=== PATIENT | female | born 1970 | race Caucasian/White ===

== ENCOUNTER 2022-10-08 15:03 | Emergency (ER) | payer BC, SELFPAY ==
[2022-10-08 15:07] VITALS: BP 129/96; PULSE 87; RESP 20; O2SAT 99; BMI 28.3
--- NOTE | 2022-10-08 15:09 | ED_ITS ---
HPI - Abdominal Pain General Chief Complaint: Abdominal Pain Stated Complaint: Abdominal Pain Time Seen by Provider: 10/08/22 15:09 History of Present Illness HPI narrative: Patient is a 51-year-old female to history of cholecystectomy, appendectomy presents to the emergency department for the evaluation of mid to low abdominal pain that began at five this morning. She states approximately ten hours ago, she developed the pain which has not lessened throughout the day. She denies fev ers, chills, nausea, vomiting. She states she had some loose stool today but has not had any diarrhea or blood in her stool. She denies urinary symptoms. No medications taken prior to arrival. Related Data Home Medications Medication Instructions Recorded Confirmed albuterol sulfate 90 mcg/actuation 1 puff inhalation Q4H PRN 10/08/22 10/08/22 aerosol inhaler shortness of breath or wheezing omeprazole 20 mg capsule,delayed 20 mg PO BID 10/08/22 10/08/22 release Previous Rx's Medication Instructions Recorded ciprofloxacin HCl 500 mg tablet 500 mg PO Q12H #20 tabs 10/08/22 dicyclomine 20 mg tablet 20 mg PO QID PRN abdominal pain 10/08/22 #12 tabs metronidazole 500 mg tablet 500 mg PO BID 10 days #20 tabs 10/08/22 ondansetron 4 mg disintegrating 4 mg PO Q6H PRN nausea and 10/08/22 tablet vomiting #12 tabs oxycodone-acetaminophen 5 mg-325 1 tab PO Q6H PRN pain #10 tabs 10/08/22 mg tablet (Percocet) Allergies Allergy/AdvReac Type Severity Reaction Status Date / Time No Known Drug Allergies Allergy Verified 10/08/22 15:06 Review of Systems ROS Constitutional Denies: fever or chills Ears, nose, mouth, and throat Denies: neck pain Respiratory Denies: shortness of breath Gastrointestinal Reports: abdominal pain; Denies: nausea or vomiting Genitourinary Denies: painful urination Musculoskeletal Denies: back pain PFSH PFSH Social History Smoking status: Former smoker Exam Narrative Exam Narrative: Gen.: Awake, alert, in no distress Head: Normocephalic, atraumatic ENT: Moist mucous membranes Respiratory: No respiratory distress, lungs clear bilaterally Cardio: Regular rate and rhythm Gastrointestinal: Abdomen is soft, nondistended; diffusely mildly tender to palpation in the epigastrium and umbilical abdomen, no guarding or rebound Extremities: Moves extremities equally, no injuries noted Psych: Normal mood and affect Neuro: No focal neuro deficit Skin: Warm, dry, intact Constitutional Vital Signs - 24 hr 10/08/22 15:07 Pulse Rate [Monitor] 87 Respiratory Rate 20 Blood Pressure [Left Arm] 129/96 H Pulse Oximetry 99 Oxygen Delivery Method Room Air Course Vital Signs Vital signs: Vital Signs Pulse Rate 87 10/08/22 15:07 Respiratory Rate 20 10/08/22 15:07 Blood Pressure 129/96 H 10/08/22 15:07 Pulse Oximetry 99 10/08/22 15:07 Oxygen Delivery Method Room Air 10/08/22 15:07 Pulse Rate 87 10/08/22 15:07 Respiratory Rate 20 10/08/22 15:07 Blood Pressure 129/96 H 10/08/22 15:07 Pulse Oximetry 99 10/08/22 15:07 Oxygen Delivery Method Room Air 10/08/22 15:07 MDM - Abdominal Pain MDM Narrative Medical decision making narrative: Patient was treated with IV fluids, Toradol, Levsin, Zofran. She is resting comfortably on reevaluation. Lab studies show mild urinary tract infection but otherwise unremarkable labs and CT shows a short segment of acute diverticulitis with no abscess or perforation. Abdomen is soft and benign in the Emergency Room and the patient will be discharged home to follow-up with her PCP. She was given Cipro, Flagyl, Zofran, Bentyl, Percocet as needed. She is encouraged to follow clear liquid diet for forty-eight hours and return to the Emergency Room if symptoms change or worsen Medical Records Attestation: I reviewed the patient's medical records. Lab Data Attestation: I reviewed the patient's lab results. Labs: Lab Results 10/08/22 10/08/22 Range/Units 15:10 15:34 WBC 11.8 H (4.0-11.0) 10^3/uL RBC 4.94 (4.20-5.40) 10^6/uL Hgb 14.7 (12.0-16.0) g/dL Hct 42.3 (36.0-48.0) % MCV 85.6 (81.0-99.0) fL MCH 29.8 (26.7-34.0) pg MCHC 34.8 (29.9-35.2) g/dL RDW 11.9 (11.0-15.0) % Plt Count 274 (150-450) 10^3/uL MPV 9.3 L (9.5-13.5) fL Neut % (Auto) 71.2 (43.0-75.0) % Lymph % (Auto) 19.3 L (20.5-60.0) % Mclean % (Auto) 7.3 (1.7-12.0) % Eos % (Auto) 1.4 (0.9-7.0) % Baso % (Auto) 0.5 (0.2-2.0) % Neut # (Auto) 8.4 H (1.4-6.5) 10^3/uL Lymph # (Auto) 2.3 (1.2-3.8) 10^3/uL Mclean # (Auto) 0.9 H (0.3-0.8) 10^3/uL Eos # (Auto) 0.2 (0.0-0.7) 10^3/uL Baso # (Auto) 0.1 (0.0-0.1) 10^3/uL Abs Immat Gran (auto) 0.03 (0.00-0.03) 10^3/uL Imm/Tot Granulo (auto) 0.3 (0.0-0.5) % Sodium 136 (136-145) mmol/L Potassium 3.9 (3.5-5.1) mmol/L Chloride 101 (98-107) mmol/L Carbon Dioxide 25.9 (21.0-32.0) mmol/L Anion Gap 13.0 BUN 8.0 (7.0-18.0) mg/dL Creatinine 0.72 (0.55-1.02) mg/dL Est GFR ( Amer) >60 (>=60) Est GFR (Non-Af Amer) >60 (>=60) BUN/Creatinine Ratio 11.1 Glucose 100 (74-106) mg/dL Lactate 0.8 (0.4-2.0) mmol/L Calcium 9.1 (8.5-10.1) mg/dL Total Bilirubin 0.9 (0.2-1.0) mg/dL AST 37 (15-37) U/L ALT 51 (14-59) U/L Alkaline Phosphatase 82 (46-116) U/L Total Protein 7.7 (6.4-8.2) g/dL Albumin 4.0 (3.4-5.0) g/dL Globulin 3.7 g/dL Albumin/Globulin Ratio 1.1 Lipase 75.0 (73.0-393.0) U/L Urine Color Lt. yellow (YELLOW) Urine Clarity Clear (CLEAR) Urine pH 8.0 (5.0-9.0) Ur Specific Cherry Log 1.010 (1.005-1.025) Urine Protein Negative (NEG/TRACE) mg/dL Urine Glucose (UA) Negative (NEGATIVE) mg/dL Urine Ketones Negative (NEGATIVE) mg/dL Urine Occult Blood Negative (NEGATIVE) Urine Nitrite Negative (NEGATIVE) Urine Bilirubin Negative (NEGATIVE) Urine Urobilinogen 0.2 (0.2-1.0) EU/dL Ur Leukocyte Esterase Moderate A (NEGATIVE) Urine RBC 2-5 A (0-2) #/HPF Urine WBC 10-20 A (NONE SEEN) #/HPF Ur Squamous Epith Cells Few A (NONE/RARE) #/LPF Urine Crystals None seen (None Seen) #/HPF Urine Bacteria Trace A (NONE SEEN) #/HPF Urine Casts None seen (NONE SEEN) #/LPF Urine Mucus None seen (NONE SEEN) Ur Culture Indicated? Yes Imaging Data CT scan - abdomen: Attestation: I have reviewed the pertinent imaging results. Radiologist's impression: Procedure: CT abdomen pelvis w con EXAM: CT abdomen pelvis w con HISTORY: Abdominal pain COMPARISON: None. TECHNIQUE: Axial CT imaging was performed through the abdomen and pelvis with intravenous contrast. Multiplanar reformats were performed. Dose reduction techniques were achieved by using automated exposure control and/or adjustment of mA and/or kV according to patient size and/or use of iterative reconstruction technique. FINDINGS: Lung bases: Lung bases are clear. No pleural effusion. GI upper: Small hiatal hernia. Liver: Normal size and contour. Gallbladder: Cholecystectomy. Biliary system: No intra or extrahepatic biliary ductal dilatation. Spleen: Normal size. Pancreas: Unremarkable. Adrenal glands: Normal adrenal glands. Kidneys/ureters: Normal contours. No hydronephrosis. There is a 0.3 cm nonobstructing left renal stone. Vessels: No aneurysm. Lymph Nodes: No lymphadenopathy. Small bowel: No wall thickening or dilatation. Colon: No wall thickening or dilatation. There are sigmoid diverticulosis. There is short segment circumferential wall thickening of the proximal sigmoid colon with surrounding fat stranding, representing acute sigmoid diverticulitis. Appendix: Appendectomy. Peritoneal cavity: No free fluid or pneumoperitoneum. Lower : Unremarkable. Bones: No acute bony abnormality. Soft tissues: No acute finding. Additional findings: None. IMPRESSION: short segment circumferential wall thickening of the proximal sigmoid colon with surrounding fat stranding, representing acute sigmoid diverticulitis. No abscess or evidence of microperforation. 0.3 cm nonobstructing left renal stone. Electronically authenticated by: OMEGA PENA Date: 10/08/2022 16:09 Discharge Plan Discharge Chief Complaint: Abdominal Pain Clinical Impression: Diverticulitis, Abdominal pain, UTI (urinary tract infection) Patient Disposition: Home, Self-Care Time of Disposition Decision: 16:28 Condition: Good Prescriptions / Home Meds: New ciprofloxacin HCl 500 mg tablet 500 mg PO Q12H Qty: 20 0RF metronidazole 500 mg tablet 500 mg PO BID 10 Days Qty: 20 0RF oxycodone-acetaminophen [Percocet] 5-325 mg tablet 1 tab PO Q6H PRN (Reason: pain) Qty: 10 0RF dicyclomine 20 mg tablet 20 mg PO QID PRN (Reason: abdominal pain) Qty: 12 0RF ondansetron 4 mg tablet,disintegrating 4 mg PO Q6H PRN (Reason: nausea and vomiting) Qty: 12 0RF No Action albuterol sulfate 90 mcg/actuation HFA aerosol inhaler 1 puff INHALATION Q4H PRN (Reason: shortness of breath or wheezing) omeprazole 20 mg capsule,delayed release(DR/EC) 20 mg PO BID Instructions: Diverticulitis (ED), Diverticulitis Diet (ED) Stand Alone Forms: Portal Instructions Referrals: ORACIO SINGH DO [Primary Care Provider] - 1 week Discharge Date/Time: 10/08/22 16:41
--- NOTE | 2022-10-08 15:16 | CT_ITS ---
[address] [address] Patient Name: COLIN MACIAS MRN: [id number] date: 1970 Sex: F Assigned Patient Location: ER Current Patient Location: .MAIN Accession/Order Number: [id number] Exam Date: 10/08/2022 15:38 Report Date: 10/08/2022 16:09 At the request of: CAROLINA DOMINGO Procedure: CT abdomen pelvis w con EXAM: CT abdomen pelvis w con HISTORY: Abdominal pain COMPARISON: None. TECHNIQUE: Axial CT imaging was performed through the abdomen and pelvis with intravenous contrast. Multiplanar reformats were performed. Dose reduction techniques were achieved by using automated exposure control and/or adjustment of mA and/or kV according to patient size and/or use of iterative reconstruction technique. FINDINGS: Lung bases: Lung bases are clear. No pleural effusion. GI upper: Small hiatal hernia. Liver: Normal size and contour. Gallbladder: Cholecystectomy. Biliary system: No intra or extrahepatic biliary ductal dilatation. Spleen: Normal size. Pancreas: Unremarkable. Adrenal glands: Normal adrenal glands. Kidneys/ureters: Normal contours. No hydronephrosis. There is a 0.3 cm nonobstructing left renal stone. Vessels: No aneurysm. Lymph Nodes: No lymphadenopathy. Small bowel: No wall thickening or dilatation. Colon: No wall thickening or dilatation. There are sigmoid diverticulosis. There is short segment circumferential wall thickening of the proximal sigmoid colon with surrounding fat stranding, representing acute sigmoid diverticulitis. Appendix: Appendectomy. Peritoneal cavity: No free fluid or pneumoperitoneum. Lower : Unremarkable. Bones: No acute bony abnormality. Soft tissues: No acute finding. Additional findings: None. IMPRESSION: short segment circumferential wall thickening of the proximal sigmoid colon with surrounding fat stranding, representing acute sigmoid diverticulitis. No abscess or evidence of microperforation. 0.3 cm nonobstructing left renal stone. Electronically authenticated by: OMEGA PENA Date: 10/08/2022 16:09
[2022-10-08 15:28] LABS: Basophils Absolute Auto 0.1 10^3/uL (0.0-0.1); Basophils Percent Auto 0.5 % (0.2-2.0); Eosinophils Absolute Auto 0.2 10^3/uL (0.0-0.7); Eosinophils Percent Auto 1.4 % (0.9-7.0); Hematocrit 42.3 % (36.0-48.0); Hemoglobin 14.7 g/dL (12.0-16.0); Immature Granulocytes Abs Auto 0.03 10^3/uL (0.00-0.03); Immature Granulocytes Pct Auto 0.3 % (0.0-0.5); Lymphocytes Absolute Auto 2.3 10^3/uL (1.2-3.8); Lymphocytes Percent Auto 19.3 % (20.5-60.0); Mean Corpuscular HGB Conc 34.8 g/dL (29.9-35.2); Mean Corpuscular Hemoglobin 29.8 pg (26.7-34.0); Mean Corpuscular Volume 85.6 fL (81.0-99.0); Mean Platelet Volume 9.3 fL (9.5-13.5); Monocytes Absolute Auto 0.9 10^3/uL (0.3-0.8); Monocytes Percent Auto 7.3 % (1.7-12.0); Neutrophils Absolute Auto 8.4 10^3/uL (1.4-6.5); Neutrophils Percent Auto 71.2 % (43.0-75.0); Platelet Count 274 10^3/uL (150-450); Red Blood Count 4.94 10^6/uL (4.20-5.40); Red Cell Distribution Width 11.9 % (11.0-15.0); White Blood Count 11.8 10^3/uL (4.0-11.0)
[2022-10-08] MEDS: HYOSCYAMINE SULFATE 0.125 MG TAB.SUBL SL (15:28)
[2022-10-08] MEDS: KETOROLAC TROMETHAMINE 30 MG/ML VIAL IVP (15:29)
[2022-10-08] MEDS: 0.9 % SODIUM CHLORIDE 1,000 ML 999 ML IV (15:29)
[2022-10-08] MEDS: ONDANSETRON PF 4 MG/2 ML VIAL IV (15:29)
[2022-10-08 15:31] LABS: Bilirubin Urine NEGATIVE (NEGATIVE); Blood Urine NEGATIVE (NEGATIVE); Clarity Urine CLEAR (CLEAR); Color Urine LT. YELLOW (YELLOW); Glucose Urine UA NEGATIVE (NEGATIVE); Ketones Urine NEGATIVE (NEGATIVE); Leukocyte Esterase Urine MODERATE (NEGATIVE); Nitrite Urine NEGATIVE (NEGATIVE); Protein Urine NEGATIVE (NEG/TRACE); Urobilinogen Urine 0.2 EU/dL (0.2-1.0)
[2022-10-08 15:34] LABS: Urine Microscopic Indicated YES
[2022-10-08 15:41] LABS: Alanine Aminotransferase 51 U/L (14-59); Albumin Globulin Ratio 1.1; Alkaline Phosphatase 82 U/L (46-116); Aspartate Amino Transferase 37 U/L (15-37); BUN Creatinine Ratio 11.1; Bilirubin Total 0.9 mg/dL (0.2-1.0); Calcium 9.1 mg/dL (8.5-10.1); Carbon Dioxide 25.9 mmol/L (21.0-32.0); Chloride 101 mmol/L (98-107); Estimated GFR (African America >60 (>=60); Estimated GFR (Non-African Ame >60 (>=60); Globulin 3.7 g/dL; Glucose 100 mg/dL (74-106); Potassium 3.9 mmol/L (3.5-5.1); Sodium 136 mmol/L (136-145); Total Protein 7.7 g/dL (6.4-8.2)
[2022-10-08 15:53] LABS: Bacteria Urine TRACE #/HPF (NONE SEEN)
[2022-10-08 15:53] LABS: Lactate/Lactic Acid 0.8 mmol/L (0.4-2.0)
[2022-10-08 15:54] LABS: Cast Seen? NONE SEEN #/LPF (NONE SEEN); Crystals Seen? None Seen #/HPF (None Seen); Mucus Urine NONE SEEN (NONE SEEN); Squamous Epithelial Cell Urine FEW #/LPF (NONE/RARE); Urine Culture Indicated YES
== END 2022-10-08 16:41 | disposition home or self-care (01) ==
PROVIDERS: Physician Assistant; Emergency Provider Emergency Medicine; PCP Family Medicine
DX: K57.32 Diverticulitis of large intestine without perforation or abscess without bleeding (principal); N39.0 Urinary tract infection, site not specified; R10.9 Unspecified abdominal pain; Z90.49 Acquired absence of other specified parts of digestive tract; Z79.899 Other long term (current) drug therapy; Z87.891 Personal history of nicotine dependence
CPT/HCPCS: 36415; 74177; 80053; 81003; 81015; 83605; 83690; 85025; 87086; 96374; 96375; 99284; Q9967

== ENCOUNTER 2022-10-15 15:29 | Emergency (ER) | payer BC, SELFPAY ==
[2022-10-15 15:31] VITALS: BP 156/86; PULSE 82; RESP 20; TEMP 36.8; O2SAT 97; BMI 28.2
--- NOTE | 2022-10-15 15:46 | ED.ABDPAIN1 ---
HPI - Abdominal Pain General Chief Complaint: Abdominal Pain Stated Complaint: BACK PAIN Time Seen by Provider: 10/15/22 15:34 Source: patient Mode of arrival: walk-in Limitations: no limitations History of Present Illness HPI narrative: upper abdominal pain that began a few days ago. The patient was diagnosed with early UTI and sigmoid diverticulitis one week ago in this ED. She had blood testing and a CT scan. WBC was normal. She was discharged home with prescriptions for cipro and flagyl to treat the UTI and diverticulitis. She also received prescriptions for Zofran for nausea and Bentyl and Percocet for pain. She said that she decreased her twice daily PPI to once daily because one of the antibiotics said I could not take an antacid 6hours before or 6hours after the antibiotic. She has nausea but no vomiting. She has almost completed her course of antibiotics. Related Data Home Medications Medication Instructions Recorded Confirmed albuterol sulfate 90 mcg/actuation 1 puff inhalation Q4H PRN 10/08/22 10/08/22 aerosol inhaler shortness of breath or wheezing omeprazole 20 mg capsule,delayed 20 mg PO BID 10/08/22 10/08/22 release Previous Rx's Medication Instructions Recorded ciprofloxacin HCl 500 mg tablet 500 mg PO Q12H #20 tabs 10/08/22 dicyclomine 20 mg tablet 20 mg PO QID PRN abdominal pain 10/08/22 #12 tabs metronidazole 500 mg tablet 500 mg PO BID 10 days #20 tabs 10/08/22 ondansetron 4 mg disintegrating 4 mg PO Q6H PRN nausea and 10/08/22 tablet vomiting #12 tabs oxycodone-acetaminophen 5 mg-325 1 tab PO Q6H PRN pain #10 tabs 10/08/22 mg tablet (Percocet) sucralfate 1 gram tablet (Carafate) 1 g PO QID 3 weeks #84 tabs 10/15/22 Allergies Allergy/AdvReac Type Severity Reaction Status Date / Time No Known Drug Allergies Allergy Verified 10/08/22 15:06 PFSH PFS Social History Smoking status: Former smoker Exam Narrative Exam Narrative: Nurses notes and vital signs reviewed and patient is not hypoxic. General: Well-appearing and in no apparent distress. Skin: Warm, dry, no pallor noted. No rash to abdomen or flank. Head: Normocephalic, atraumatic. Eye: Pupils are equal, round and EOMI. No scleral icterus. Ears, Nose, Mouth, and Throat: Oral mucosa is moist Cardiovascular: Regular Rate and Rhythm without murmur, gallop or rub. Respiratory: No accessory muscle use or respiratory distress. Lungs are clear to auscultation, no wheezing, rales or rhonchi Back: No CVA tenderness Musculoskeletal: normal ROM, no calf or popliteal tenderness, no lower extremity edema/swelling GI: Abdomen is soft, non-distended. Normal bowel sounds. No masses appreciated. Suprapubic tenderness to palpation. No rebound, guarding, or rigidity noted. Neurological: A&O x4. No cranial nerve dysfunction observed. No truncal ataxia. Moves all extremities. Sensation intact. Psychiatric: Cooperative and interactive. Normal mood and affect. Constitutional Vital Signs - 24 hr 10/15/22 15:31 Temperature 98.3 F Pulse Rate [Monitor] 82 Respiratory Rate 20 Blood Pressure [Right Arm] 156/86 H Pulse Oximetry 97 Oxygen Delivery Method Room Air Course Vital Signs Vital signs: Vital Signs Temperature 98.3 F 10/15/22 15:31 Pulse Rate 82 10/15/22 15:31 Respiratory Rate 20 10/15/22 15:31 Blood Pressure 156/86 H 10/15/22 15:31 Pulse Oximetry 97 10/15/22 15:31 Oxygen Delivery Method Room Air 10/15/22 15:31 Temperature 98.3 F 10/15/22 15:31 Pulse Rate 82 10/15/22 15:31 Respiratory Rate 20 10/15/22 15:31 Blood Pressure 156/86 H 10/15/22 15:31 Pulse Oximetry 97 10/15/22 15:31 Oxygen Delivery Method Room Air 10/15/22 15:31 MDM - Abdominal Pain MDM Narrative Medical decision making narrative: Blood drawn and sent for testing. Patient given ODT Zofran and GI cocktail. WBC had normalized when compared with last week's value. Creatinine elevated on this visit - BUN normal. CMP otherwise unremarkable and Lipase negative. Patient and I discussed her results. She will finish her antibiotics and then restart her PPI BID. In the meantime she was instructed to maintain a soft bland diet and was prescribed Carafate to take at home. She will keep her appointment with Dr Ledbetter in [place]. Lab Data Attestation: I reviewed the patient's lab results. Labs: Lab Results 10/15/22 Range/Units 16:05 WBC 6.6 (4.0-11.0) 10^3/uL RBC 4.55 (4.20-5.40) 10^6/uL Hgb 13.6 (12.0-16.0) g/dL Hct 39.2 (36.0-48.0) % MCV 86.2 (81.0-99.0) fL MCH 29.9 (26.7-34.0) pg MCHC 34.7 (29.9-35.2) g/dL RDW 11.8 (11.0-15.0) % Plt Count 284 (150-450) 10^3/uL MPV 9.0 L (9.5-13.5) fL Neut % (Auto) 59.8 (43.0-75.0) % Lymph % (Auto) 30.9 (20.5-60.0) % Franklin % (Auto) 6.1 (1.7-12.0) % Eos % (Auto) 2.1 (0.9-7.0) % Baso % (Auto) 0.8 (0.2-2.0) % Neut # (Auto) 4.0 (1.4-6.5) 10^3/uL Lymph # (Auto) 2.0 (1.2-3.8) 10^3/uL Franklin # (Auto) 0.4 (0.3-0.8) 10^3/uL Eos # (Auto) 0.1 (0.0-0.7) 10^3/uL Baso # (Auto) 0.1 (0.0-0.1) 10^3/uL Abs Immat Gran (auto) 0.02 (0.00-0.03) 10^3/uL Imm/Tot Granulo (auto) 0.3 (0.0-0.5) % Sodium 141 (136-145) mmol/L Potassium 3.7 (3.5-5.1) mmol/L Chloride 105 (98-107) mmol/L Carbon Dioxide 31.8 (21.0-32.0) mmol/L Anion Gap 7.9 BUN 11.0 (7.0-18.0) mg/dL Creatinine 1.26 H (0.55-1.02) mg/dL Est GFR ( Amer) 54 L (>=60) Est GFR (Non-Af Amer) 45 L (>=60) BUN/Creatinine Ratio 8.7 Glucose 109 H (74-106) mg/dL Calcium 9.1 (8.5-10.1) mg/dL Total Bilirubin 0.5 (0.2-1.0) mg/dL AST 30 (15-37) U/L ALT 51 (14-59) U/L Alkaline Phosphatase 64 (46-116) U/L Total Protein 7.0 (6.4-8.2) g/dL Albumin 3.7 (3.4-5.0) g/dL Globulin 3.3 g/dL Albumin/Globulin Ratio 1.1 Lipase 86.0 (73.0-393.0) U/L Discharge Plan Discharge Chief Complaint: Abdominal Pain Clinical Impression: GERD (gastroesophageal reflux disease) Patient Disposition: Home, Self-Care Time of Disposition Decision: 17:10 Prescriptions / Home Meds: New sucralfate [Carafate] 1 gram tablet 1 g PO QID 21 Days Qty: 84 0RF Rx Instructions: take before meals and at bedtime No Action albuterol sulfate 90 mcg/actuation HFA aerosol inhaler 1 puff INHALATION Q4H PRN (Reason: shortness of breath or wheezing) omeprazole 20 mg capsule,delayed release(DR/EC) 20 mg PO BID ciprofloxacin HCl 500 mg tablet 500 mg PO Q12H Qty: 20 0RF metronidazole 500 mg tablet 500 mg PO BID 10 Days Qty: 20 0RF oxycodone-acetaminophen [Percocet] 5-325 mg tablet 1 tab PO Q6H PRN (Reason: pain) Qty: 10 0RF dicyclomine 20 mg tablet 20 mg PO QID PRN (Reason: abdominal pain) Qty: 12 0RF ondansetron 4 mg tablet,disintegrating 4 mg PO Q6H PRN (Reason: nausea and vomiting) Qty: 12 0RF Instructions: GERD (Gastroesophageal Reflux Disease) (ED) Stand Alone Forms: Portal Instructions Referrals: ORACIO SINGH DO [Primary Care Provider] - 1 week
[2022-10-15] MEDS: lidocaine HCL 15 ML, MAG HYDROX/ALUMINUM HYD/SIMETH 30 ML, HYOSCYAMINE SULFATE 0.25 MG PO (15:55)
[2022-10-15] MEDS: ONDANSETRON 4 MG RAPDIS TABLET SL (15:55)
[2022-10-15 16:34] LABS: Basophils Absolute Auto 0.1 10^3/uL (0.0-0.1); Basophils Percent Auto 0.8 % (0.2-2.0); Eosinophils Absolute Auto 0.1 10^3/uL (0.0-0.7); Eosinophils Percent Auto 2.1 % (0.9-7.0); Hematocrit 39.2 % (36.0-48.0); Hemoglobin 13.6 g/dL (12.0-16.0); Immature Granulocytes Abs Auto 0.02 10^3/uL (0.00-0.03); Immature Granulocytes Pct Auto 0.3 % (0.0-0.5); Lymphocytes Percent Auto 30.9 % (20.5-60.0); Mean Corpuscular HGB Conc 34.7 g/dL (29.9-35.2); Mean Corpuscular Hemoglobin 29.9 pg (26.7-34.0); Mean Corpuscular Volume 86.2 fL (81.0-99.0); Monocytes Absolute Auto 0.4 10^3/uL (0.3-0.8); Monocytes Percent Auto 6.1 % (1.7-12.0); Neutrophils Percent Auto 59.8 % (43.0-75.0); Platelet Count 284 10^3/uL (150-450); Red Blood Count 4.55 10^6/uL (4.20-5.40); Red Cell Distribution Width 11.8 % (11.0-15.0); White Blood Count 6.6 10^3/uL (4.0-11.0)
[2022-10-15 16:43] LABS: Alanine Aminotransferase 51 U/L (14-59); Albumin Globulin Ratio 1.1; Albumin Level 3.7 g/dL (3.4-5.0); Alkaline Phosphatase 64 U/L (46-116); Anion Gap 7.9; Aspartate Amino Transferase 30 U/L (15-37); BUN Creatinine Ratio 8.7; Bilirubin Total 0.5 mg/dL (0.2-1.0); Calcium 9.1 mg/dL (8.5-10.1); Carbon Dioxide 31.8 mmol/L (21.0-32.0); Chloride 105 mmol/L (98-107); Estimated GFR (African America 54 (>=60); Estimated GFR (Non-African Ame 45 (>=60); Globulin 3.3 g/dL; Glucose 109 mg/dL (74-106); Potassium 3.7 mmol/L (3.5-5.1); Sodium 141 mmol/L (136-145)
== END 2022-10-15 17:38 | disposition home or self-care (01) ==
PROVIDERS: Emergency Provider Emergency Medicine; PCP Family Medicine
DX: K21.9 Gastro-esophageal reflux disease without esophagitis (principal); Z87.891 Personal history of nicotine dependence; Z87.440 Personal history of urinary (tract) infections; Z79.899 Other long term (current) drug therapy
CPT/HCPCS: 36415; 80053; 83690; 85025; 99283

== ENCOUNTER 2023-03-06 10:20 | Outpatient (OUT) | payer BC, SELFPAY ==
--- NOTE | 2023-03-06 | XR_ITS ---
[facility] [place] [id number] Patient Name: COLIN MACIAS MRN: [id number] date: 1970 Sex: F Assigned Patient Location: [facility] Current Patient Location: [facility] Accession/Order Number: [id number] Exam Date: 03/06/2023 10:35 Report Date: 03/06/2023 13:19 At the request of: ORACIO SINGH Procedure: XR chest 2V EXAM: XR chest 2V - 03/06/2023 HISTORY: R07.89; Chest pain COMPARISON STUDY: PA and lateral chest 11/12/2017. FINDINGS: The cardiomediastinal contours are stable and within normal limits. No dense consolidation, effusion, edema, failure or pneumothorax noted. Suture anchors embedded within the humeral head on the left from rotator cuff repair. The gallbladder is surgically absent. No acute osseous change identified. XR/XR chest 2V IMPRESSION: No acute cardiopulmonary process suspected. Electronically authenticated by: ERICK DICKSON Date: 03/06/2023 13:19
== END 2023-03-06 10:21 | disposition home or self-care (01) ==
LOC: RAD 10:23
PROVIDERS: PCP Family Medicine; Visit Provider Family Medicine
DX: R07.89 Other chest pain (principal)
CPT/HCPCS: 71046

== ENCOUNTER 2023-04-27 22:26 | Outpatient (REF) | payer BC, SELFPAY ==
--- OUTSIDE RECORDS SUMMARY | 2023-04-27 22:31 | XMS_ITS | CCD ---
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 your health care provider. ? After your symptoms improve, your health care provider may tell you to change your diet. He or she may recommend that you eat a diet that contains at least 25 grams (25 g) of fiber daily. Fiber makes it easier to pass stool. Healthy sources of fiber include: ? Berries. One cup contains 4?8 grams of fiber. ? Beans or lentils. One-half cup contains 5?8 grams of fiber. ? Green vegetables. One cup contains 4 grams of fiber. ? Avoid eating red meat. General instructions ? Do not use any products that contain nicotine or tobacco, such as cigarettes, e-cigarettes, and chewing tobacco. If you need help quitting, ask your health care provider. ? Exercise for at least 30 minutes, 3 times each week. You should exercise hard enough to raise your heart rate and break a sweat. ? Keep all follow-up visits as told by your health care provider. This is important. You may need to have a colonoscopy. Contact a health care provider if: ? Your pain does not improve. ? Your bowel movements do not return to normal. Get help right away if: ? Your pain gets worse. ? Your symptoms do not get better with treatment. ? Your symptoms suddenly get worse. ? You have a fever. ? You vomit more than one time. ? You have stools that are bloody, black, or tarry. Summary ? Diverticulitis is infection or inflammation of small pouches (diverticula) in the colon that form due to a condition called diverticulosis. Diverticula can trap stool (feces) and bacteria, causing infection and inflammation. ? You are at higher risk for this condition if you have diverticulosis and you eat a diet lavell (more content not included)... Normal [facility] RAD - CT Reporton 11-17-2022 RAD - CT Report [id number] Normal [facility] CBC AUTO DIFFon 06-04-2022 BASO # 0.0 103/ul Normal 0.0-0.1 [facility] Comment on above: Performed By: #### C BC #### [facility] [address] [address] [address] Jacob Mcdaniel Basophils/100 WBC (Bld) 0.8 % Normal 0.2-2.0 [facility] Comment on above: Performed By: #### C BC #### [facility] [address] [place] [address] Dr. Jacob Mcdaniel EO # 0.2 103/ul Normal 0.0-0.7 [facility] Comment on above: Performed By: #### C BC #### [facility] [address] [place] [address] Dr. Jacob Mcdaniel Eosinophils/100 WBC (Bld) 3.0 % Normal 0.9-7.0 [facility] Comment on above: Performed By: #### C BC #### [facility] [address] [place] [address] Dr. Jacob Mcdaniel Erythrocyte distribution width (RBC) [Ratio] 12.1 % Normal 11.0-15.0 [facility] Comment on above: Performed By: #### C BC #### [facility] [address] [place] [address] Dr. Jacob Mcdaniel Hematocrit (Bld) [Volume fraction] 42.5 % Normal 36.0-48.0 [facility] Comment on above: Performed By: #### C BC #### [facility] [address] [place] [address] Dr. Jacob Mcdaniel Hemoglobin (Bld) [Mass/Vol] 14.7 g/dL Normal 12.0-16.0 [facility] Comment on above: Performed By: #### C BC #### [facility] [address] [place] [address] Dr. Jacob Mcdaniel IG # 0.02 10e3/ul Normal 0.00-0.03 [facility] Comment on above: Performed By: #### C BC #### [facility] [address] [place] [address] Dr. Jacob Mcdaniel IG % 0.4 % Normal 0.0-0.5 [facility] Comment on above: Performed By: #### C BC #### [facility] [address] [place] [address] Dr. Jacob Mcdaniel LYMPH # 1.7 103/ul Normal 1.2-3.8 [facility] Comment on above: Performed By: #### C BC #### [facility] [address] [address] [address] Jacob Mcdaniel Lymphocytes/100 WBC (Bld) 31.8 % Normal 20.5-60.0 [facility] Comment on above: Performed By: #### C BC #### [facility] [address] [place] [address] Dr. Jacob Mcdaniel MANUAL DIFF REQ NO Normal [facility] Comment on above: Performed By: #### C BC #### [facility] [address] [place] [address] Dr. Jacob Mcdaniel MCH (RBC) [Entitic mass] 30.1 pg Normal 26.7-34.0 [facility] Comment on above: Performed By: #### C BC #### [facility] [address] [place] [address] Dr. Jacob Mcdaniel MCHC (RBC) [Mass/Vol] 34.6 g/dL Normal 29.9-35.2 [facility] Comment on above: Performed By: #### C BC #### [facility] [address] [place] [address] Dr. Jacob Mcdaniel MCV (RBC) [Entitic vol] 86.9 fL Normal 81.0-99.0 [facility] Comment on above: Performed By: #### C BC #### [facility] [address] [place] [address] Dr. Jacob Mcdaniel MONO # 0.3 103/ul Normal 0.3-0.8 [facility] Comment on above: Performed By: #### C BC #### [facility] [address] [place] [address] Dr. Jacob Mcdaniel Monocytes/100 WBC (Bld) 6.2 % Normal 1.7-12.0 [facility] Comment on above: Performed By: #### C BC #### [facility] [address] [place] [address] Dr. Jacob Mcdaniel NEUT # 3.1 103/ul Normal 1.4-6.5 [facility] Comment on above: Performed By: #### C BC #### [facility] [address] [address] [address] Jacob Mcdaniel Neutrophils/100 WBC (Bld) 57.8 % Normal 43.0-75.0 [facility] Comment on above: Performed By: #### C BC #### [facility] [address] [address] [address] Jacob Mcdaniel Platelet mean volume (Bld) [Entitic vol] 8.9 fL Critically low 9.5-13.5 [facility] Comment on above: Performed By: #### C BC #### [facility] [address] [address] [address] Jacob Mcdaniel PLT 263 103/ul Normal 150-450 [facility] Comment on above: Performed By: #### C BC #### [facility] [address] [address] [address] Jacob Mcdaniel RBC 4.89 106/ul Normal 4.20-5.40 [facility] Comment on above: Performed By: #### C BC #### [facility] [address] [address] [address] Jacob Mcdaniel WBC 5.3 103/ul Normal 4.0-11.0 [facility] Comment on above: Performed By: #### C BC #### [facility] [address] [address] [address] Jacob Mcdaniel MG MAMM SCREEN 3D ISABEL CADon 06-04-2022 MG MAMM SCREEN 3D ISABEL CAD Patient: TIERA MACIAS Exam Date: 06/04/2022 : 1970 Gender:F Ordering : DR YANELY WEINER . Admission #: [id number] Family : DR GERALD SINGH D.O. Order #: [id number] CLICK HERE TO VIEW EXAM RADIOLOGY REPORT PROCEDURE: MAMMOGRAM SCREENING 3D BILATERAL CAD COMPARISON: MG MAMM SCREEN ISABEL W CAD, 03/07/2020. MG MAMM SCREEN 3D ISABEL CAD, 04/09/2021. INDICATIONS: Screening mammography Calculator Name NCI Breast Cancer Risk Assessment Tool 5 Year Breast Cancer Risk 0.80% Lifetime Breast Cancer Risk 6.30% Personal Breast Cancer No Personal Ovarian Cancer No Treatments None Family Cancers Mother with ovarian cancer at age 54; Grandmother-paternal with kidney cancer at age 65. LOCATION: [facility] BREAST COMPOSITION: Heterogeneously dense,which may obscure small masses. FINDINGS: DIAGNOSTIC CATEGORY 2--BENIGN FINDING. NO CHANGE FROM COMPARISON. Scattered benign-appearing nodules are present. Scattered benign-appearing calcifications are present. Scattered benign-appearing lymph nodes are present. RIGHT BREAST: No significant suspicious finding. LEFT BREAST: No significant suspicious finding. RECOMMENDATIONS: ROUTINE MAMMOGRAM AND CLINICAL EVALUATION IN 12 MONTHS. PLEASE NOTE: A NORMAL MAMMOGRAM DOES NOT EXCLUDE THE POSSIBILITY OF BREAST CANCER. A CLINICALLY SUSPICIOUS PALPABLE LUMP SHOULD BE BIOPSIED. Dictated by: Lizbeth Seymour MD on 06/04/2022 at 14:00 Approved by: Lizbeth Seymour MD on 06/04/2022 at 14:03 Normal [facility] PROF 14(COMP METB)on 023 Albumin [Mass/Vol] 4.0 g/dL Normal 3.4-5.0 [facility] Comment on above: Performed By: #### T MACKENZIE, CMP #### [facility] [address] [place] [address] Dr. Jacob Mdcaniel Albumin/Globulin [Mass ratio] 1.2 {ratio} Normal [facility] Comment on above: Performed By: #### T MACKENZIE, CMP #### [facility] [address] [place] [address] Dr. Jacob Mcdaniel ALP [Catalytic activity/Vol] 69 U/L Normal 46-116 [facility] Comment on above: Performed By: #### T MACKENZIE, CMP #### [facility] [address] [place] [address] Dr. Jacob Mcdaniel ALT [Catalytic activity/Vol] 40 U/L Normal 14-59 [facility] Comment on above: Performed By: #### T MACKENZIE, CMP #### [facility] [address] [place] [address] Dr. Jacob Mcdaniel Anion gap [Moles/Vol] 12.1 mmol/L Normal [facility] Comment on above: Performed By: #### T MACKENZIE, CMP #### [facility] [address] [place] [address] Dr. Jacob Mcdaniel AST [Catalytic activity/Vol] 21 U/L Normal 15-37 [facility] Comment on above: Performed By: #### T SH, CMP #### [facility] [address] [place] [address] Dr. Jacob Mcdaniel Bilirubin [Mass/Vol] 0.8 mg/dL Normal 0.2-1.0 [facility] Comment on above: Performed By: #### T SH, CMP #### [facility] [address] [place] [address] Dr. Jacob Mcdaniel Calcium [Mass/Vol] 9.5 mg/dL Normal 8.5-10.1 [facility] Comment on above: Performed By: #### T SH, CMP #### [facility] [address] [place] [address] Dr. Jacob Mcdaniel Chloride [Moles/Vol] 103 mmol/L Normal 98-107 [facility] Comment on above: Performed By: #### T SH, CMP #### [facility] [address] [place] [address] Dr. Jacob Mcdaniel CO2 [Moles/Vol] 31.9 mmol/L Normal 21.0-32.0 [facility] Comment on above: Performed By: #### T SH, CMP #### [facility] [address] [place] [address] Dr. Jacob Mcdaniel Creatinine [Mass/Vol] 0.84 mg/dL Normal 0.55-1.02 [facility] Comment on above: Performed By: #### T SH, CMP #### [facility] [address] [place] [address] Dr. Jacob Mcdaniel EGFR-AF RUSSIAN >60 Normal >=60 [facility] Comment on above: Performed By: #### T SH, CMP #### [facility] [address] [place] [address] Dr. Jacob Mcdaniel EGFR-NON AF RUSSIAN >60 Normal >=60 [facility] Comment on above: Performed By: #### T SH, CMP #### [facility] [address] [place] [address] Dr. Jacob Mcdaniel Globulin (S) [Mass/Vol] 3.4 g/dL Normal [facility] Comment on above: Performed By: #### T SH, CMP #### [facility] [address] [address] [address] Jacob Mcdaniel Glucose [Mass/Vol] 105 mg/dL Normal 74-106 [facility] Comment on above: Performed By: #### T SH, CMP #### [facility] [address] [address] [address] Jacob Mcdaniel Potassium [Moles/Vol] 4.0 mmol/L Normal 3.5-5.1 [facility] Comment on above: Performed By: #### T SH, CMP #### [facility] [address] [address] [address] Jacob Mcdaniel Protein [Mass/Vol] 7.4 g/dL Normal 6.4-8.2 [facility] Comment on above: Performed By: #### T MACKENZIE, CMP #### [facility] [address] [place] [address] Dr. Jacob Mcdaniel Sodium [Moles/Vol] 143 mmol/L Normal 136-145 [facility] Comment on above: Performed By: #### T SH, CMP #### [facility] [address] [place] [address] Dr. Jacob Mcdaniel Urea nitrogen [Mass/Vol] 12.0 mg/dL Normal 7.0-18.0 [facility] Comment on above: Performed By: #### T SH, CMP #### [facility] [address] [place] [address] Dr. Jacob Mcdaniel Urea nitrogen/Creatinin e [Mass ratio] 14.3 mg/mg Normal [facility] Comment on above: Performed By: #### T SH, CMP #### [facility] [address] [address] [address] Jacob Mcdaniel TSHon 06-04-2022 TSH 0.619 uIU/mL Normal 0.358-3.740 [facility] Comment on above: Performed By: #### T SH, CMP ####[facility] [address] [address] Jacob Mcdaniel VIT B12 AND FOLATEon 023 Cobalamin (Vitamin B12) [Mass/Vol] 396.0 pg/mL Normal 193.0-986.0 [facility] Comment on above: Performed By: #### B 12FOL ####[facility] [address] [place], [place] [address]OjDoron Mcdaniel FOLATE 9.30 ng/mL Normal 8.60-58.90 [facility] Comment on above: Performed By: #### B 12FOL ####[facility] [address] [place], [place] [address]WoDoron Mcdaniel XR DEXA BONE DENSITYon 06-04 XR DEXA BONE DENSITY EXAMINATION: XR DEXA BONE DENSITY, 06/04/2022 12:28 PM EST HISTORY: Menopause present COMPARISON: DEXA bone densitometry 11/24/2019 TECHNIQUE: Dual-energy X-ray absorptiometry (DEXA) bone density study performed for the axial skeleton. FINDINGS: SPINE ANALYSIS: Average bone mineral density is 1.257 g/cm2. T-score (standard deviation relative to young adult mean): 0.6 . -0.8% change since prior study. HIP ANALYSIS: Lowest bone mineral density is within the right femoral neck, 0.849 g/cm2. T-score (standard deviation relative to young adult mean): -1.4 . -12.0% change since prior study. IMPRESSION: [employer] Classification: Osteopenia - Moderate Fracture Risk Electronically authenticated by: FRANK MONROY Date: 2022-06-04 13:14 Normal [facility] XR CSPINE 2_3 VIEWSon 2022 XR CSPINE 2_3 VIEWS EXAMINATION: XR CSPINE 2_3 VIEWS HISTORY: Cervical spine sprain COMPARISON: No relevant comparison available. FINDINGS: BONES: Loss of normal cervical lordosis. Otherwise normal alignment with no acute fracture or spondylolisthesis. Mild to moderate spondylosis and facet osteoarthropathy most significant C6-C7 DISC SPACES: Moderate disc space narrowing most significant C6-C7 PARASPINOUS: Negative. No paraspinous abnormality is seen. OTHER: Negative. IMPRESSION: Moderate degenerative changes most significant at C6-C7 Electronically authenticated by: LIZBETH SEYMOUR Date: 2022-05-30 13:58 Normal [facility] PAP ACOG PANEL 2: 30 to 65on 01-29-2022 . . Normal [facility] Comment on above: Result Comment: Perf ormed at: BA Performed By: #### [id number] #### [facility] [address] [place] [address] Dr. Jacob Mcdaniel Age Gdln ACOG Testing 30-65 Normal [facility] Comment on above: Performed By: #### [id number] #### [facility] [address] [place] [address] Dr. Jacob Mcdaniel DIAGNOSIS: Comment Normal [facility] Comment on above: Result Comment: NEGA TIVE FOR INTRAEPITHELIAL LESION OR MALIGNANCY. CELLULAR CHANGES ASSOCIATED WITH ATROPHY AND INFLAMMATION ARE PRESENT. Performed at: BA Performed By: #### [id number] #### [facility] [address] [place] [address] Dr. Jacob Mcdaniel HPV Aptima Negative Normal Negative [facility] Comment on above: Result Comment: This nucleic acid amplification test detects fourteen high-risk HPV types (16,18,31,33,35,39,45,51,52,56,58,59,66,68) without differentiation. Performed at: =G Performed By: #### [id number] #### [facility] [address] [place] [address] Dr. Jacob Mcdaniel Methodology: Comment Normal [facility] Comment on above: Result Comment: This liquid based ThinPrep(R) pap test was screened with the use of an image guided system. Performed at: WB Performed By: #### [id number] #### [facility] [address] [place] [address] Dr. Jacob Mcdaniel Note: Comment Normal [facility] Comment on above: Result Comment: The Pap smear is a screening test designed to aid in the detection of premalignant and malignant conditions of the uterine cervix. It is not a diagnostic procedure and should not be used as the sole means of detecting cervical cancer. Both false-positive and false-negative reports do occur. . Performed at: WB Performed By: #### [id number] #### [facility] [address] [place] [address] Dr. Jacob Mcdaniel Performed by: Comment Normal [facility] Comment on above: Result Comment: Codey Lorenzo, Interactive Developer (ASCP) Performed at: BA Performed By: #### [id number] #### [facility] [address] [address] [address] Jacob Mcdaniel Specimen adequacy: Comment Normal [facility] Comment on above: Result Comment: Sati sfactory for evaluation. Endocervical and/or squamous metaplastic cells (endocervical component) are present. Performed at: BA Performed By: #### [id number] #### [facility] [address] [address] [address] Jacob Mcdaniel AMYLASEon 09-25-2021 Amylase [Catalytic activity/Vol] 40 U/L Normal 25-115 [facility] Comment on above: Performed By: #### C MP, YOLIE, LIPA ####[facility] [address] [address]Dr. Jacob Mcdaniel CBC AUTO DIFFon 09-25-2021 BASO # 0.0 103/ul Normal 0.0-0.1 [facility] Comment on above: Performed By: #### C BC ####[facility] [address] [address]DrDoron Mcdaniel Basophils/100 WBC (Bld) 0.6 % Normal 0.2-2.0 [facility] Comment on above: Performed By: #### C BC ####[facility] [address] [address]Dr. Jacob Mcdaniel EO # 0.1 103/ul Normal 0.0-0.7 [facility] Comment on above: Performed By: #### C BC ####[facility] [address] [address]DrDoron Mcdaniel Eosinophils/100 WBC (Bld) 1.5 % Normal 0.9-7.0 [facility] Comment on above: Performed By: #### C BC ####[facility] [address] [address]DrDoron Mcdaniel Erythrocyte distribution width (RBC) [Ratio] 12.2 % Normal 11.0-15.0 [facility] Comment on above: Performed By: #### C BC ####[facility] [address] [address]Dr. Jacob Mcdaniel Hematocrit (Bld) [Volume fraction] 41.6 % Normal 36.0-48.0 [facility] Comment on above: Performed By: #### C BC ####[facility] [address] [place], [place] [address]Dr. Jacob Mcdaniel Hemoglobin (Bld) [Mass/Vol] 13.8 g/dL Normal 12.0-16.0 [facility] Comment on above: Performed By: #### C BC ####[facility] [address] [place], [place] [address]Dr. Jacob Mcdaniel IG # 0.01 10e3/ul Normal 0.00-0.03 [facility] Comment on above: Performed By: #### C BC ####[facility] [address] [place], [place] [address]Dr. Jacob Mcdaniel IG % 0.1 % Normal 0.0-0.5 [facility] Comment on above: Performed By: #### C BC ####[facility] [address] [place], [place] [address]Dr. Jacob Mcdaniel LYMPH # 2.8 103/ul Normal 1.2-3.8 [facility] Comment on above: Performed By: #### C BC ####[facility] [address] [place], [place] [address]Dr. Jacob Mcdaniel Lymphocytes/100 WBC (Bld) 40.1 % Normal 20.5-60.0 [facility] Comment on above: Performed By: #### C BC ####[facility] [address] [place], [place] [address]Dr. Jacob Mcdaniel MANUAL DIFF REQ NO Normal [facility] Comment on above: Performed By: #### C BC ####[facility] [address] [address]Dr. Jacob Mcdaniel MCH (RBC) [Entitic mass] 30.1 pg Normal 26.7-34.0 [facility] Comment on above: Performed By: #### C BC ####[facility] [address] [address]Dr. Mitastar Jonas MCHC (RBC) [Mass/Vol] 33.2 g/dL Normal 29.9-35.2 [facility] Comment on above: Performed By: #### C BC ####[facility] [address] [address]Dr. Jacob Mcdaniel MCV (RBC) [Entitic vol] 90.6 fL Normal 81.0-99.0 [facility] Comment on above: Performed By: #### C BC ####[facility] [address] [place], [place] [address]DrDoron Mcdaniel MONO # 0.5 103/ul Normal 0.3-0.8 [facility] Comment on above: Performed By: #### C BC ####[facility] [address] [address]Dr. Jacob Mcdaniel Monocytes/100 WBC (Bld) 6.9 % Normal 1.7-12.0 [facility] Comment on above: Performed By: #### C BC ####[facility] [address] [place], [place] [address]Dr. Jacob Mcdaniel NEUT # 3.5 103/ul Normal 1.4-6.5 [facility] Comment on above: Performed By: #### C BC ####[facility] [address] [place], [place] [address]Dr. Jacob Mcdaniel Neutrophils/100 WBC (Bld) 50.8 % Normal 43.0-75.0 [facility] Comment on above: Performed By: #### C BC ####[facility] [address] [place], [place] [address]DrDoron cMdaniel Platelet mean volume (Bld) [Entitic vol] 9.1 fL Critically low 9.5-13.5 [facility] Comment on above: Performed By: #### C BC ####[facility] [address] [place], [place] [address]Dr. Jacob Mcdaniel PLT 279 103/ul Normal 150-450 [facility] Comment on above: Performed By: #### C BC ####[facility] [address] [place], [place] [address]QyDoron Mcdaniel RBC 4.59 106/ul Normal 4.20-5.40 [facility] Comment on above: Performed By: #### C BC ####[facility] [address] [place], [place] [address]NzDoron Mcdaniel WBC 6.9 103/ul Normal 4.0-11.0 [facility] Comment on above: Performed By: #### C BC ####[facility] [address] [place], [place] [address]Ts. Jacob Mcdaniel CT ABD/PELVIS WO CONon 09-25 CT ABD/PELVIS WO CON EXAM: CT ABD/PELVIS WO CON Comparison: None available. CLINICAL INDICATION: Right lower quadrant pain. TECHNIQUE: Axial images through the abdomen and pelvis were obtained without intravenous contrast. Coronal and sagittal reconstructions were obtained. Dose reduction techniques were achieved by using automated exposure control and/or adjustment of mA and/or kV according to patient size and/or use of iterative reconstruction technique. FINDINGS: Please note that evaluation of the viscera/vascular structures, and sensitivity for detection of focal lesions, is limited without intravenous contrast. LOWER CHEST: The visualized portions of the lung bases are clear. Small hiatal hernia. LIVER: Unremarkable. GALLBLADDER: Prior cholecystectomy. BILE DUCTS: Unremarkable. PANCREAS: Unremarkable. SPLEEN: Unremarkable. ADRENALS: Unremarkable. KIDNEYS/URETERS: Possible punctate nonobstructing tiny left kidney stone on series 3 image 42. No ureteral stones. No hydronephrosis. BLADDER: Unremarkable. PELVIC STRUCTURES: Uterus is present. No adnexal masses. No significant pelvic free fluid. GI TRACT: Evaluation of bowel limited by fecal contents and lack of distention. No evidence of bowel obstruction. Appendix appears thickened/edematous, dilated up to 9 mm, with right lower quadrant periappendiceal inflammatory stranding. Moderate colonic stool burden. Colonic diverticulosis without evidence of acute diverticulitis. VASCULAR STRUCTURES: Unremarkable. LYMPH NODES: No pathologic lymphadenopathy by CT size criteria. Likely reactive mildly prominent right lower quadrant mesenteric lymph nodes. PERITONEUM: No free air. No abscess. SOFT TISSUES: Unremarkable. OSSEOUS STRUCTURES: No acute osseous abnormality. No suspicious osseous lesions. IMPRESSION: 1. Findings consistent with acute appendicitis as described above. No free air or abscess at this time. 2. Prior cholecystectomy. 3. Small hiatal hernia. Moderate colonic stool burden. Colonic diverticulosis without evidence of acute diverticulitis. 4. No evidence of obstructive uropathy. Possible punctate tiny nonobstructing left kidney stone. Electronically authenticated by: PATTI BUNNZ Date: 2021-09-25 18:01 Normal [facility] CULTURE URINEon 09-25-2021 CULTURE URINE Culture Observations : LIGHT GROWTH OF MIXED GENITAL BRANDT. NO POTENTIAL PATHOGENS SEEN. Normal [facility] Comment on above: Performed By: #### U RCX ####[facility] [address] [place] [id number]. Jacob Mcdaniel Covid-19 PCR (CVDTB)on SARS-CoV-2 (COVID-19) RNA MATT+probe Ql (Unsp spec) Not detected Normal NOT DETECTED [facility] Comment on above: Result Comment: When diagnostic testing is negative, the possibility of a false negative should be considered in the context of a patient's recent exposures and the presence of clinical signs and symptoms consistent with SARS-CoV-2. This test is not yet approved or cleared by the [place] FDA. When there are no FDA-approved or cleared tests available, and other criteria are met, FDA can make tests available under an emergency access mechanism called an Emergency Use Authorization (EUA). The EUA for this test is supported by the [place] of Health and Human Service's declaration that circumstances exist to justify the emergency use of in vitro diagnostics for the detection and/or diagnosis of the virus that causes COVID-19. This EUA will remain in effect for the duration of the COVID-19 declaration justifying emergency of IVDs, unless it is terminated or revoked by the FDA (after which the test may no longer be used). Performed By: #### C VDTBH ####[facility] [address] [place] [id number]. Jacob Mcdaniel ER URINE PROFILEon 2 Bilirubin Ql (U) Negative Normal NEGATIVE [facility] Comment on above: Performed By: #### E RUR, PREGU, UMICRO #### [facility] [address] [address] [address] Jacob Mcdaniel Clarity (U) CLEAR Normal CLEAR [facility] Comment on above: Performed By: #### E RUR, PREGU, UMICRO #### [facility] [address] [address] [address] Jacob Mcdaniel Color (U) LT. YELLOW Normal YELLOW [facility] Comment on above: Performed By: #### E RUR, PREGU, UMICRO #### [facility] [address] [address] [address] Jacob Mcdaniel ERUAHD A micrscopic examina tion will be performed if indicated. Normal [facility] Comment on above: Performed By: #### E RUR, PREGU, UMICRO #### [facility] [address] [address] [address] Jacob Mcdaniel Glucose Ql (U) Negative Normal NEGATIVE [facility] Comment on above: Performed By: #### E RUR, PREGU, UMICRO #### [facility] [address] [address] [address] Jacob Mcdaniel Hemoglobin Ql (U) Negative Normal NEGATIVE [facility] Comment on above: Performed By: #### E RUR, PREGU, UMICRO #### [facility] [address] [address] [address] Jacob Mcdaniel Ketones Ql (U) Negative Normal NEGATIVE [facility] Comment on above: Performed By: #### E RUR, PREGU, UMICRO #### [facility] [address] [address] [address] Jacob Mcdaniel LEUKOCYTES MODERATE Abnormal NEGATIVE [facility] Comment on above: Performed By: #### E RUR, PREGU, UMICRO #### [facility] [address] [address] [address] Jacob Mcdaniel Nitrite Ql (U) Negative Normal NEGATIVE [facility] Comment on above: Performed By: #### E RUR, PREGU, UMICRO #### [facility] [address] [address] [address] Jacob Mcdaniel pH (U) 7.0 [pH] Normal 5-9 [facility] Comment on above: Performed By: #### PEG ROJO UMICRO #### [facility] [address] [address] [address] Jacob Mcdaniel SPEC GRAVITY 1.010 Normal 1.005-<=1.0 25 [facility] Comment on above: Performed By: #### PEG ROJO UMICRO #### [facility] [address] [place] [address] Dr. Jacob Mcdaniel UA PROTEIN Negative Normal NEGATIVE/ TRACE [facility] Comment on above: Performed By: #### PEG ROJO UMICRO #### [facility] [address] [place] [address] Dr. Jacob Mcdaniel UR MICRO IND INDICATED Normal [facility] Comment on above: Performed By: #### PEG ROJO UMICRO #### [facility] [address] [place] [address] Dr. Jacob Mcdaniel Urobilinogen Qn (U) 0.2 {Tessy'U}/dL Normal 0.2 - 1.0 [facility] Comment on above: Performed By: #### PEG ROJO UMICRO #### [facility] [address] [place] [address] Dr. Jacob Mcdaniel LIPASEon 09-25-2021 Lipase [Catalytic activity/Vol] 100.0 U/L Normal 73.0-393.0 [facility] Comment on above: Performed By: #### C MP, YOLIE, LIPA ####[facility] [address] [place] [address]Dr. Jacob Mcdaniel URon 09-25-2021 , QUAL Negative Normal NEGATIVE The [facility] Comment on above: Performed By: #### PEG ROJO UMICRO #### [facility] [address] [place] [address] Dr. Jacob Mcdaniel PROF 14(COMP METB)on 022 Albumin [Mass/Vol] 3.8 g/dL Normal 3.4-5.0 [facility] Comment on above: Performed By: #### C YOLIE FAN, LIPA ####[facility] [address] [place] [address]Dr. Jacob Mcdaniel Albumin/Globulin [Mass ratio] 1.1 {ratio} Normal [facility] Comment on above: Performed By: #### C MP YOLIE, LIPA ####[facility] [address] [place] [address]Dr. Jacob Mcdaniel ALP [Catalytic activity/Vol] 76 U/L Normal 46-116 [facility] Comment on above: Performed By: #### C YOLIE FAN, LIPA ####[facility] [address] [place] [address]Dr. Jacob Mcdaniel ALT [Catalytic activity/Vol] 43 U/L Normal 14-59 [facility] Comment on above: Performed By: #### C MITA YOLIE, LIPA ####[facility] [address] [place] [address]Dr. Jacob Mcdaniel Anion gap [Moles/Vol] 11.9 mmol/L Normal [facility] Comment on above: Performed By: #### C YOLIE FAN, LIPA ####[facility] [address] [place], [place] [address]Dr. Jacob Mcdaniel AST [Catalytic activity/Vol] 24 U/L Normal 15-37 [facility] Comment on above: Performed By: #### C MITA YOLIE, LIPA ####[facility] [address] [place] [address]Dr. Jacob Jonas Bilirubin [Mass/Vol] 0.3 mg/dL Normal 0.2-1.0 [facility] Comment on above: Performed By: #### C MITA YOLIE, LIPA ####[facility] [address] [place] [address]Dr. Jacob Jonas Calcium [Mass/Vol] 8.6 mg/dL Normal 8.5-10.1 [facility] Comment on above: Performed By: #### C MP YOLIE, LIPA ####[facility] [address] [place] [address]Dr. Jacob Mcdaniel Chloride [Moles/Vol] 104 mmol/L Normal 98-107 [facility] Comment on above: Performed By: #### C MP, YOLIE, LIPA ####[facility] [address] [place] [address]Dr. Jacob Mcdaniel CO2 [Moles/Vol] 27.7 mmol/L Normal 21.0-32.0 [facility] Comment on above: Performed By: #### C MP, YOLIE, LIPA ####[facility] [address] [place] [address]Dr. Jacob Mcdaniel Creatinine [Mass/Vol] 0.89 mg/dL Normal 0.55-1.02 [facility] Comment on above: Performed By: #### C MP, YOLIE, LIPA ####[facility] [address] [place] [address]Dr. Jacob Mcdaniel EGFR-AF RUSSIAN >60 Normal >=60 [facility] Comment on above: Performed By: #### C MP, YOLIE, LIPA ####[facility] [address] [place] [address]Dr. Jacob Mcdaniel EGFR-NON AF RUSSIAN >60 Normal >=60 [facility] Comment on above: Performed By: #### C MP, YOLIE, LIPA ####[facility] [address] [place] [address]Dr. Jacob Mcdaniel Globulin (S) [Mass/Vol] 3.5 g/dL Normal [facility] Comment on above: Performed By: #### C MP, YOLIE, LIPA ####[facility] [address] [place] [address]Dr. Jacob Mcdaniel Glucose [Mass/Vol] 91 mg/dL Normal 74-106 [facility] Comment on above: Performed By: #### C MP, YOLIE, LIPA ####[facility] [address] [place] [address]Dr. Jacob Mcdaniel Potassium [Moles/Vol] 3.6 mmol/L Normal 3.5-5.1 [facility] Comment on above: Performed By: #### C YOLIE FAN, LIPA ####[facility] [address] [place] [address]Dr. Jacob Mcdaniel Protein [Mass/Vol] 7.3 g/dL Normal 6.4-8.2 [facility] Comment on above: Performed By: #### C MITA YOLIE, LIPA ####[facility] [address] [place] [address]Dr. Jacob Mcdaniel Sodium [Moles/Vol] 140 mmol/L Normal 136-145 [facility] Comment on above: Performed By: #### C MITA YOLIE, LIPA ####[facility] [address] [place] [address]Dr. Jacob Mcdaniel Urea nitrogen [Mass/Vol] 14.0 mg/dL Normal 7.0-18.0 [facility] Comment on above: Performed By: #### C YOLIE FAN, LIPA ####[facility] [address] [place] [address]Dr. Jacob Mcdaniel Urea nitrogen/Creatinin e [Mass ratio] 15.7 mg/mg Normal [facility] Comment on above: Performed By: #### C YOLIE FAN, LIPA ####[facility] [address] [place] [address]Dr. Jacob Mcdaniel URINE MICROSCOPIC ONLYon BACTERIA SMALL Abnormal NONE SEEN [facility] Comment on above: Performed By: #### PEG ROJO UMICRO #### [facility] [address] [place] [address] Dr. Jacob Mcdaniel Bacteria identified Cx Nom (U) INDICATED Normal [facility] Comment on above: Performed By: #### PEG ROJO UMICRO #### [facility] [address] [place] [address] Dr. Jacob Mcdaniel CAST NONE SEEN Normal NONE SEEN [facility] Comment on above: Performed By: #### PEG ROJO UMICRO #### [facility] [address] [place] [address] Dr. Jacob Mcdaniel Crystals LM Nom (Urine sed) NONE SEEN Normal NONE SEEN [facility] Comment on above: Performed By: #### E RUR, PREGU, UMICRO #### [facility] [address] [address] [address] Jacob Mcdaniel Epithelial cells LM Ql (Urine sed) FEW Abnormal NONE SEEN /RARE [facility] Comment on above: Performed By: #### E RUR, PREGU, UMICRO #### [facility] [address] [address] [address] Jacob Mcdaniel MUCOUS NONE SEEN Normal NONE SEEN [facility] Comment on above: Performed By: #### E RUR, PREGU, UMICRO #### [facility] [address] [address] [address] Jacob Mcdaniel RBC NONE SEEN Abnormal 0-2 [facility] Comment on above: Performed By: #### E RUR, PREGU, UMICRO #### [facility] [address] [address] [address] Jacob Mcdaniel WBC 10-20 Abnormal NONE SEEN [facility] Comment on above: Performed By: #### E RUR, PREGU, UMICRO #### [facility] [address] [address] [address] Jacob Mcdaniel XR lumbar spine AP/LAT/FLX/E XTon 07-29-2021 XR lumbar spine AP/LAT/FLX/EXT [facility] [place] [address] XRay Report Signed Patient: Tiera Macias MR#: [id number] 21 : 1970 Acct:[id number] Age/Sex: 50 / F ADM Date: 07/29/21 Loc: XD Room: Type: [facility] Attending Dr: Matteo Person MD Ordering Provider: Matteo Person MD Date of Service: 07/29/21 XR/XR lumbar spine AP/LAT/FLX/EXT: Sacroiliitis Copies to: Matteo Person MD Lumbar spine 4 views: Reason for exam: Low back pain radiating to both legs for 8 months. COMPARISON: Lumbar spine series 02/13/2020. FINDINGS: 5 lumbar type vertebral bodies are identified. Vertebral body heights appear well- maintained. Severe disc space narrowing L5-S1 with associated facet joint and degenerative change. Flexion-extension views junction no pathological motion. SI joints demonstrate mild degenerative change. XR/XR lumbar spine AP/LAT/FLX/EXT IMPRESSION: Degenerative disease L5-S1, similar to the prior study. Impression dictated by: Wilson Aguilar Jr., DDoronODoron07/29/2021 2:43 PM Dictation Location: [place] [address] Transcribed By: [facility] 07/29/21 1443 Dictated By: Wilson Aguilar Jr, DO 07/29/21 144 Signed By: 07/29/21 144 [facility] Operative Reporton 9 Operative Report MR#: [id number] S [facility] Pt. Name: Tiera Macias Room #: 0C Discharge Date: Birthdate: 1970 OPERATIVE REPORT DATE OF SURGERY: 12/01/2018 SURGEON: Lizbeth Glover M.D. PREOPERATIVE DIAGNOSIS: Left shoulder rotator cuff tear. POSTOPERATIVE DIAGNOSIS: Left shoulder rotator cuff tear. TECHNICIAN TELECOMMUNICATION SYSTEMS: Darinel Bartholomew M.D. ANESTHESIA: General. PROCEDURE PERFORMED: Left shoulder rotator cuff repair. INDICATIONS: The patient is a 48-year-old woman, who had previously had a rotator cuff repair performed by Dr. Melvin in [place]. I reviewed the intraoperative images and it appeared Dr. Melvin did a beautiful job. She however at the time was a smoker and so she had a failure of the repair. I revised this after she stops smoking and her nicotine tests were all negative. She initially did well, but then started again have pain and weakness. An MRI revealed a retear of the revision repair. I therefore offered to her a superior capsule reconstruction. This would be to remove her lumbee rotator cuff tendon and instead reconstruct with a dermal allograft. Intraoperatively however, the rotator cuff repair was almost entirely intact with only a little bit of tearing posteriorly. I therefore instead felt that the better course of action would be to repair the torn portion of her tear. Risks and benefits were discussed preoperatively. Informed consent was obtained in the clinic and she was scheduled for the procedure on 12/01/2018. PROCEDURE IN DETAIL: After confirmation and marking of the correct surgical extremity in the preoperative holding area, the patient was brought back to the operating suite and placed in the supine position. All pressure points were adequately padded. General endotracheal anesthesia was smoothly induced. Preoperative antibiotics were administered. The left upper extremity was prepped and draped in a sterile fashion. After observation of a surgical time-out procedure using 2 separate patient identifiers, we began with the case. We first started the infiltration of the shoulder itself and the proposed incisions with 20 mL of 1% lidocaine with epinephrine. We then created standard arthroscopy portals and began with a diagnostic arthroscopy. We first inspected the superior labrum, the long-head of biceps tendon, the subscapularis, and the articular cartilage, and all were found to be intact. We were then surprised to find that the undersurface of the rotator cuff repair, which had seemed completely torn on the MRI, was actually intact. We redirected the arthroscope into the subacromial space and found that indeed the majority of the rotator cuff repair was intact and it moved as a unit with no gapping. The only region where there was some re-tearing was the posterior aspect of the repair. This tear was only approximately 5 mm. I therefore elected to repair this with a 4.5 mm Arthrex PEEK Corkscrew suture anchor double loaded with FiberWire. This was then passed into the rotator cuff tendon with interlocked mattress sutures. When tied down, this affected an anatomic repair. At this point, all instruments were removed and the shoulder was drained of fluid. The portal incisions were closed using simple nylon sutures. A sterile dry dressing, Polar Care unit for pain, and sling with abduction pillow to protect the repair were all applied. The patient was then awakened, extubated, and brought back to the PACU in stable condition. I was present, scrubbed, and actively participating through all cobb portions of the surgery. ESTIMATED BLOOD LOSS: Minimal. COMPLICATIONS: None. DISPOSITION: To the PACU in stable condition. POSTOPERATIVE PLAN: I will see the patient back in 10-14 days' time for suture removal and initiation of physical therapy. Electronically Signed by: Lizbeth Glover M.D. 12/10/2018 03:00 P Lizbeth Glover M.D. Date Dict: 12/01/2018/11:05 Robert/Lizbeth Glover M.D. Date Trans: 12/01/2018 11:50 A/cory [id number] cc: Gerald Singh D.O. [address] [facility] [id number] Normal The [facility] POC GLUCOSE LABon 12-01-2018 Glucose [Mass/Vol] 79 mg/dL Normal 70-100 [facility] Comment on above: Performed By: #### 8 [id number] #### [facility] [address] POC URINE PREGNANCYon 2018 Beta HCG ( test) Ql (U) Negative Normal NEGATIVE [facility] Comment on above: Result Comment: Perf ormed in PACU Performed By: #### 8 [id number] #### [facility] [address] MRI SHOULDER WO CONTRAST LEF Ton 08-18-2018 MRI SHOULDER WO CONTRAST LEFT [facility] Department of Radiology [address] [place] [id number] Patient Name: TIERA MACIAS : 1970 Sex: F Age: Race: White Pt. Location: Patient Status: Ordered Date: 08/10/2018 12:00:00 PM Completed Date: 08/18/2018 07:41 AM Requesting Provider: LIZBETH GLOVER Attending Provider: Report Copy To: Signs & Symptoms: M75.122 Complete rotatr-cuff tear/ruptr of left shoulder, not trauma I10 History: Kaylah, Hardware left shoulder -new number [facility] [place] [id number] / jake per shyam call ref # [id number] *er Comments: , , , Ordering Provider - LIZBETH GLOVER MD , Exam: MRI SHOULDER WO CONTRAST LEFT MRI SHOULDER WO CONTRAST LEFT 08/18/2018 7:41 AM EDT SIGNS AND SYMPTOMS: M75.122 Complete rotatr-cuff tear/ruptr of left shoulder, not trauma I10 TECHNOLOGIST COMMENTS: patient complains of left shoulder pain with limited ROM for about 1 year. h/o 6 prior shoulder surgeries QUESTION FOR THE RADIOLOGIST: , , , Ordering Provider - LIZBETH GLOVER MD , PROTOCOL: Images were obtained in the following sequences: 3-plane localizer, axial T2 GRE, axial PD fat-sat, coronal PD fat-sat, sagittal T1, and sagittal PD fat-sat. COMPARISON: January 10, 2015. FINDINGS: Skeleton: Postoperative artifact from decompression surgery and rotator cuff repair. Muscles: Relatively mild atrophy within supraspinatus and infraspinatus slightly more conspicuous than in 2015. Rotator cuff tendons: Supraspinatus is to a large degree obscured by artifact but there is likely a partial tear of the tendon. The lack of atrophy would suggest that some fibers are still intact. Infraspinatus shows thinning of the tendon and edema at the insertion Glenoid labrum: No definite tear. Long head biceps: Mild proximal bicipital tendinitis. Joint cavity: Small effusion. Moderate bursitis. Mild adhesive capsulitis. IMPRESSION: 1. Hardware artifact obscures most of the supraspinatus insertion. 2. Muscle atrophy is only slightly more advanced than 2015 at supraspinatus and infraspinatus. 3. Suspicion of residual impingement and bursitis with cuff tendinitis, possibly with small full-thickness supraspinatus tear. Series 5 image 10. Electronically signed by:Peggy Winchester. Transcribed by: [email or web address], User Resident: Electronically Signed by: PEGGY WINCHESTER @ 08/18/2018 10:48 AM Normal [facility] Comment on above: Order Comment: , , = ========= , Ordering Provider - LIZBETH GLOVER MD , CNOVon 03-16-2018 CNOV Office Visit (SPSNAV) -------TIERA MACIAS ([id number]) 1970 FDate Time Provider Bympblvlgs68/27/18 2:55 PM Tahir ANN SPSNAV During your visit today, we recorded the following information about you:Tahir Ann MD 03/16/2018 5:40 PM Steve is seen in follow-up for her acute sciatica secondary to a largeextruded right sided L5-S1 disc herniation. She continues to complain ofnumbness in an S1 distribution. She does however report that her pain isstarting to improve.Given that her pain is improving I would not intervene yet. She will begin togradually increase activities as she tolerates. I will see her back in onemonth's time.Tahir Ann [facility] Provider: ZORAIDA ALMANZAR [[id number]]Allergies As of Date: 03/16/2018 Noted Allergy ReactionASPIRIN 04/07/2014 14 - Other: See CommentsDate Reviewed: 02/18/2018Reviewed by: Christine (Zach) ZACH Downing - Fully AssessedReason for Visit: Follow Up [171]Primary Visit Diagnosis:Lumbar disc herniation [M51.26]Prescriptions as of 03/16/2018 Sig: FLUTICASONE 100 MCG-SALMETERO* Advair Diskus 100 mcg-50 mcg/* ALBUTEROL SULFATE 2.5 MG/3 ML* albuterol sulfate 2.5 mg/3 mL* BACLOFEN 10 MG TABLET CITALOPRAM 20 MG TABLET citalopram 20 mg tablet METHYLPREDNISOLONE 4 MG TABLE* METHYLPREDNISOLONE 4 MG TABLE* methylprednisolone 4 mg table*Problem List As Of Date 03/16/2018 Noted Resolved Lumbar disc herniation [M51.26] INVALID FOR* More...Follow-up and Disposition History RecordedEncounter Number: [id number] Status:Closed by Tahir ANN MD on 03/16/18 [facility] PROGRESSon 03-16-2018 Protein mass conc HNO ID: [id number] thor: Tahir Phillips: (none)Author Type: PhysicianType: Progress NotesFiled: 03/16/2018 5:40 PMNote Text:Tiera is seen in follow-up for her acute sciatica secondary to a largeextruded right sided L5-S1 disc herniation. She continues to complain ofnumbness in an S1 distribution. She does however report that her pain isstarting to improve.Given that her pain is improving I would not intervene yet. She willbegin to gradually increase activities as she tolerates. I will see fatmata in one month's time.Tahir Ann MD Normal [facility] HISTORY PHYSICALon 8 HISTORY PHYSICAL HNO ID: [id number] thor: Sydney Reyna ([facility]) Marisol Hidalgo: (none)Author Type: Physician AssistantType: HANDPFiled: 02/18/2018 9:35 AMNote Text:LOCAL PROCEDURE HISTORY AND PHYSICAL EXAMSERVICE DATE: 02/18/2018SERVICE TIME: 9:34 AMProvisional Diagnosis/Treatment Plan: lumbar disc herniation/Right L5-[id number]: This is a 47 year old female who presents with right back, buttocksand leg painMEDICATIONS:Prior to Admission medications as of 02/18/18 0915Medication Sig Last Dose TakingdiazePAM (VALIUM) 5 mg tablet Take one tablet 30 minutes prior toprocedure. May repeat 1x. 02/18/2018 at Unknown time Yescitalopram (CELEXA) 20 mg tablet citalopram 20 mg tablet 02/17/2018 atUnknown time Yesfluticasone-salmeterol (ADVAIR) 100-50 mcg/dose dsdv Advair Diskus 100mcg-50 mcg/dose powder for inhalationalbuterol (PROVENTIL) 2.5 mg /3 mL (0.083 %) nebulizer solution albuterolsulfate 2.5 mg/3 mL (0.083 %) solution for nebulizationbaclofen (LIORESAL) 10 mg tabletmethylPREDNISolone (MEDROL DOSE-PACK) 4 mg Dose-PackmethylPREDNISolone (MEDROL DOSE-PACK) 4 mg Dose-Pack methylprednisolone 4mg tablets in a dose packALLERGIESAllergen Reactions- Aspirin Other: See CommentsObjectivePHYSICAL EXAM:The remainder of the physical exam is noncontributory.LUNGS: Lungs clear to auscultation, Good diaphragmatic excursionCARDIAC: Normal S1 and S2; no rubs, murmurs, or gallops, Rhythm: regularrate and rhythmBP 165/83 Pulse 95 Temp 36.1 ?C (97 ?F) Resp 16 Wt 67.6 kg(149 lb) SpO2 99% BMI 26.39 kg/m?PAIN ASSESSMENT:PAIN EVALUATION 02/18/2018 Pain Score: 10 Pain Location: Leg-Right Description: Stabbing Intervention: Reposition;Relaxation;Medic ationAssessment/PlanPrincip al Problem: Lumbar disc herniation POA: Unknown Assessment AND Plan: lumbar disc herniation/Right L5-S1 TFESISIGNATURE: Sydney Hidalgo PA-C PATIENT NAME: Tiera LassiterhDATE: February 18, 2018 : 9:34 AM PAGER: [phone] [facility] NURSING PROGon 02-18-2018 Protein mass conc HNO ID: [id number] thor: Christine (Rn) [place], RNService: (none)Author Type: Registered NurseType: Nursing Progress NoteFiled: 02/18/2018 9:54 AMNote Text: Nursing Progress NotePatient Name: Tiera SunshineRN: [id number] Location: AV Endo/AV Endo Daily Note: 0946 - Pt arrived to post op awake, oriented x 3. Pt statespain has gone from 10/10 to 6/10 to right leg. Pt still having numbnessto right leg. Pedal push/pulls equal and strong. vSSThis note was completed by: Christine Downing RN Normal [facility] OPERATIVE NOon 02-18-2018 OPERATIVE NO HNO ID: [id number] thor: Zoraida Fine: (none)Author Type: PhysicianType: Operative ReportFiled: 02/18/2018 9:44 AMNote Text:Pt presents for f/u. Continues to have Rt leg pain. Appearsuncomfortable, seen by Dr. Ann for surgical eval. Wants to proceed withan injection today to address the presenting symptoms. Consent obtained.Rt side was marked in the pre-op area. Pt is aware of risks, benefits,alternatives, expected outcome, equipment and personnel.[facility] approved time out was performed identifying the site, side and levelof procedure prior to start of procedure.[facility] - ELECTIVE PROCEDURELumbar Transforaminal Epidural Steroid Injection and/or Selective NerveRoot Block under FluoroscopyIndication: Lumbar herniated nucleus pulposus, rt thoracolumbarradiculitis(ne urogenic claudication )The risks and benefits of the procedure were discussed with the patient.The verbal and written informed consent of the patient was obtained. Thepatient was taken to the fluoroscopy suite.The patient was placed in the prone position on the fluoroscopic table,and the lumbar area was prepped and draped in a sterile fashion.DuraPrep was used per skin prep guidelines. We waited 3 minutes by timerfor the DuraPrep to dry before proceed with the procedure.Using fluoroscopic guidance the L5 vertebral body was definitivelyidentified using the most caudal normal disc space labeled as L5-S1. Theiliac crest was also visualized as a secondary landmark identifying theL4-5 level.The Rt L5-1 neural foramen was identified using fluoroscopic guidanceafter which the overlying skin was anesthetized using sterile techniquewith 1% preservative free Xylocaine.A sterile 5 inch 22G spinal needle was introduced after which the needletip was carefully directed toward the inferior (6 o'clock) position of thepedicle which formed the roof of the identified foramen. No blood or CSFwas aspirated. Omnipaque 300mgI/mL, approximately 1 cc was injected torule out intravascular placement of the needle. Medial flow was noted onAP/ oblique view along with contrast under the pedicle on the lateralview.X-rays were obtained for documentation purpose.After this, 12mg betamethasone + 2 cc of 2% Xylocaine preservative freewas injected into the intervertebral foramen.The needle was then removed. Vital signs remained normal. There were nocomplications. Pulse oximeter was used throughout the procedure and thepatient's pulse and oxygen saturation remained within normal limits. Thepatient tolerated the procedure well.The patient was instructed to apply ice over the injection site for twentyminutes every two hours for the next twenty-four to forty-eight hours.The patient was also instructed to contact me if there is any exacerbationof the symptoms. Post procedure instruction sheet was given. The patientwas recommended to follow up with me in one to two weeks.Incision/Procedure Start Time: 9:39 AMIncision Close/Procedure End Time: 9:42 AMDate of Service: 02/18/2018I was present for the entire duration of the procedure and I performed theentire procedure.Zoraida Almanzar DO, MBA [facility] PT EDon 02-18-2018 PT ED HNO ID: [id number] thor: Christine RojasRnBharat Alcalaice: (none)Author Type: Registered NurseType: Patient EducationFiled: 02/18/2018 9:58 AMNote Text:POST OP LEARNING RESPONSEINSTRUCTION PROVIDED TO: PatientMETHOD OF INSTRUCTION: Written instruction - handoutsVerbal instructionPATIENT / FAMILY RESPONSE: Verbalizes understanding of: POST-PROCEDUREINSTRUCTIONS- Correct actions to take to reduce post procedurecomplicationsFOLLO W-UP PLAN: Complete - No need for follow-upSUPPLEMENTAL MATERIAL: NoneREFERRAL (RECOMMENDATION): NoneElectronically Signed By: Christine Downing RN In Department: PROCEDURES [facility] PT ED HNO ID: [id number] thor: Keely RojasRn) LAQUITA Dominguezervice: NursingAuthor Type: Registered NurseType: Patient EducationFiled: 02/18/2018 9:28 AMNote Text:PRE OP LEARNING ASSESSMENTPROCEDURE/SURGERY : PAIN MANAGEMENT: lumbar epiduralREADINESS TO LEARNCOGNITIVE ABILITY: Alert and orientedMOTIVATION TO LEARN: InterestedFAMILY SUPPORT: High - Very involved in pt carePATIENT LEARNS BEST BY: Individual InstructionVerbal InstructionFACTORS AFFECTING LEARNING: NonePHYSICAL LIMITATIONS AFFECTING LEARNING: NoneElectronically Signed By: Keely Dominguez RN [facility] Office Visit (SPSNAV) -------TIERA MACIAS ([id number]) 1970 FDate Time Provider Kdktzpgjpw53/30/18 1:55 PM Tahir ANN SPSNAV During your visit today, we recorded the following information about you:Tahir Ann MD 02/16/2018 5:11 PM SignedSPINE SURGERY NEW PATIENTPCP: No primary care provider on file.REFERRING PROVIDER: Dr Shabbir DerasJECTIVEHISTORY OF PRESENT ILLNESS:Tiera Macias is a 47 year old female presenting with sister for 1 week ofL5-S1 acute HNP after lifting a box. Had to go to ED for narcotics.CHIEF COMPLAINT: R sided back pain radiating to dorsum of footPRECIPITATING EVENT: Work injury: Onset of Symptoms was immediate. Priorsimilar symptoms: No.DURATION OF SYMPTOMS: Less Than 6 WeeksPAIN EVALUATION 02/16/2018 Pain Score: 10 Pain Location: Back-Lower right leg, right buttock Description: Aching;Burning;Sharp;Throbb ing;Stabbing Duration Amount of Time: 1 Duration Units: Weeks Frequency: Continuous Intervention: Medication advilPain Radiation: to the right foot/feetAggravating Factors: Flexion, Extension, RotationAlleviating Factors: Side-lyingPain Ratio: Pain in the leg(s) is greater than in the backDERMATOMAL DISTRIBUTION:Right: [id number] STATUS: Minimal Ambulation/Wheelchair BoundANTIPLATELET OR ANTICOAGULATION STATUS: NoPREVIOUS CONSERVATIVE TREATMENTS:OpioidsPREVIOUS SPINAL SURGERY: NoneThere is no problem list on file for this patient.No past medical history on file.No past surgical history on file.No family history on file.Social History Marital status: Spouse name: Years of education: Number of children:Social History Main Topics Smoking status: Former Smoker Packs/day: 1.00 Years: 25.00 Types: Cigarettes Smokeless tobacco: Never Used Alcohol use: No Drug use: NoALLERGIESAllergen Reactions- Aspirin Other: See CommentsMEDICATIONS:flutica sone-salmeterol (ADVAIR) 100-50 mcg/dose dsdv Advair Diskus 100 mcg-50mcg/dose powder for inhalationalbuterol (PROVENTIL) 2.5 mg /3 mL (0.083 %) nebulizer solution albuterolsulfate 2.5 mg/3 mL (0.083 %) solution for nebulizationbaclofen (LIORESAL) 10 mg tabletcitalopram (CELEXA) 20 mg tablet citalopram 20 mg tabletmethylPREDNISolone (MEDROL DOSE-PACK) 4 mg Dose-PackmethylPREDNISolone (MEDROL DOSE-PACK) 4 mg Dose-Pack methylprednisolone 4 mgtablets in a dose packREVIEW OF SYSTEMS:GENERAL: No weight loss or malaiseMUSCULOSKELETAL: Negative for joint pain, swelling or muscle painNEURO: No history of headaches, syncope, paralysis, seizures or tremorsOBJECTIVE:PHYSICAL EXAMThere were no vitals taken for this visit.GENERAL APPEARANCE: Well nourished, well developed, and no apparent distress.NEURO PSYCH: Patient oriented to person, place, and time. Mood pleasant. Benignaffect.MUSCULOSKELETA L VISUAL INSPECTION CERVICAL: WNL THORACIC: WNL LUMBAR: WNLMOTOR: 5/5 in all muscle groups.SENSORY: L5 impaired rightGAIT: Antalgic.NEURO TESTS:+ Lesegue's on RCannot fully extend for SLRDATA REVIEWCCF records reviewedASSESSMENT/PLANAcut e L5-S1 herniated diskKimberly A Zilch will continue with medical management of his/her condition.1. Consults: Medical Spine Intervention2. NSAIDs3. Physical therapy4. Follow up: Following above in 3 months if pain persistsI reviewed the information obtained and documented by the resident. I examinedthe patient and evaluated all available films and pertinent documents. Wediscussed the case and I agree with the plans as outlined in this note.SIGNATURE: Tahir Ann MD PATIENT NAME: Tiera No: February 16, 2018 : 1:15 PM PAGER:Tahir Ann MD 02/16/2018 5:11 PM SignedThis 47-year-old woman presents complaining of a one-week history of severeright sided sciatica. It began suddenly. Her MRI shows a large extruded L5-P7bepbfrfz.I think there is a high chance that this will resolve spontaneously withnonoperative care. To manage her symptoms in the short term she may benefitfrom an epidural injection. I will see her back in one month's time.JACEY Ahneferring Provider: ZORAIDA ALMANZAR [[id number]]Allergies As of Date: 02/16/2018 Noted Allergy ReactionASPIRIN 04/07/2014 14 - Other: See CommentsDate Reviewed: 02/15/2018Reviewed by: Zoraida Almanzar - Fully AssessedReason for Visit: Consult [502]Primary Visit Diagnosis:Lumbar disc herniation [M51.26]Prescriptions as of 02/16/2018 Sig: FLUTICASONE 100 MCG-SALMETERO* Advair Diskus 100 mcg-50 mcg/* ALBUTEROL SULFATE 2.5 MG/3 ML* albuterol sulfate 2.5 mg/3 mL* BACLOFEN 10 MG TABLET CITALOPRAM 20 MG TABLET citalopram 20 mg tablet METHYLPREDNISOLONE 4 MG TABLE* METHYLPREDNISOLONE 4 MG TABLE* methylprednisolone 4 mg table*Problem List As Of Date 02/16/2018 Noted Resolved Lumbar disc herniation [M51.26] INVALID FOR* More... Status:Closed by Tahir ANN MD on 02/16/18 [facility] [place] 02-16-2018 GABI Telephone (NIQ) ----TIERA MACIAS ([id number]) 1970 FDate Time Provider Ohxqrogmpp77/30/18 ZORAIDA ALMANZAR During your visit today, we recorded the following information about you:Lisa Elizabeth 02/16/2018 1:54 PM SignedPt at check out scheduled for injection on 02/18/[address] Almanzar at 9AMRight L5-S1 TFESI-DM/-ThinWill sign waiverAura Escobar 02/16/2018 2:49 PM SignedESR DONETracy C Veronica 02/16/2018 2:51 PM SignedEsr doneAllergies As of Date: 02/16/2018 Noted Allergy ReactionASPIRIN 04/07/2014 14 - Other: See CommentsDate Reviewed: 02/15/2018Reviewed by: Zoraiad Almanzar - Fully AssessedReason for Visit: Tranforaminal Epidural Steroid Injection [1061]Order(s):SURGICAL REQUEST - ELECTIVE [[id number]] Order #: [id number]: 1Prescriptions as of 02/16/2018 Sig: FLUTICASONE 100 MCG-SALMETERO* Advair Diskus 100 mcg-50 mcg/* ALBUTEROL SULFATE 2.5 MG/3 ML* albuterol sulfate 2.5 mg/3 mL* BACLOFEN 10 MG TABLET CITALOPRAM 20 MG TABLET citalopram 20 mg tablet METHYLPREDNISOLONE 4 MG TABLE* METHYLPREDNISOLONE 4 MG TABLE* methylprednisolone 4 mg table*Problem List As Of Date 02/16/2018 Noted Resolved Lumbar disc herniation [M51.26] INVALID FOR* More... Status:Closed by AURA ESCOBAR on 02/16/18 [facility] 02-16-2018 HOSP Patient:Aissatou Macias AMRN: Height:5' 3 (1.6 m)Weight:149 lb (67.586 kg)Outpatient Medications as of 02/18/18:diazePAM (VALIUM) 5 mg tabletfluticasone-salmetero l (ADVAIR) 100-50 mcg/dose dsdvalbuterol (PROVENTIL) 2.5 mg /3 mL (0.083 %) nebulizer solutionbaclofen (LIORESAL) 10 mg tabletcitalopram (CELEXA) 20 mg tabletmethylPREDNISolone (MEDROL DOSE-PACK) 4 mg Dose-PackmethylPREDNISolone (MEDROL DOSE-PACK) 4 mg Dose-PackAdmission/Clinic Administered Medications as of 02/18/18:Patient has no admission medications.Problem List:Lumbar disc herniation [M51.26]Allergies:AspirinDa te Verified: 02/18/18Lab ValuesNo results within the last 30 days for the following basenames: K,HCTProgress Notes ([facility] REJ):Elaine Woodson, RN, RN 02/16/2018 4:33 PM SignedPatient Valerie saw Dr. Ann todayShe is scheduled for an epidural injection sking for pain medication for relief prior to injectionReturn call to [phone] Griffin LPN 02/17/2018 9:21 AM SignedThe prescription you requested has been called in to Dr Tracy dejesus at [facility] to pt and advised.Pt verbalized understanding.Progress Notes ([facility]):Lisa Elizabeth 02/16/2018 1:54 PM SignedPt at check out scheduled for injection on 02/18/[address] Almanzar at 9AMRight L5-S1 TFESI-DM/-Lynn sign eddieiverTraalexia Escobar 02/16/2018 2:49 PM SignedESR DONETraalexia Escobar 02/16/2018 2:51 PM SignedEsr done [facility] PROGRESSon 02-16-2018 Protein mass conc HNO ID: [id number] thor: Tahir Phillips: (none)Author Type: PhysicianType: Progress NotesFiled: 02/16/2018 5:11 PMNote Text:This 47-year-old woman presents complaining of a one-week history ofsevere right sided sciatica. It began suddenly. Her MRI shows a largeextruded L5-S1 fragment.I think there is a high chance that this will resolve spontaneously withnonoperative care. To manage her symptoms in the short term she maybenefit from an epidural injection. I will see her back in one month'stime.Tahir Ann MD [facility] Protein mass conc HNO ID: [id number] thor: Tahir RegaladoMir Jacqueline: (none)Author Type: PhysicianType: Progress NotesFiled: 02/16/2018 5:11 PMNote Text:SPINE SURGERY NEW PATIENTPCP: No primary care provider on file.REFERRING PROVIDER: Dr Shabbir AlmanzarSUBJECTIVEHISTORY OF PRESENT ILLNESS:Tiera Macias is a 47 year old female presenting with sister for 1 weekof L5-S1 acute HNP after lifting a box. Had to go to ED for narcotics.CHIEF COMPLAINT: R sided back pain radiating to dorsum of footPRECIPITATING EVENT: Work injury: Onset of Symptoms was immediate. Priorsimilar symptoms: No.DURATION OF SYMPTOMS: Less Than 6 WeeksPAIN EVALUATION 02/16/2018 Pain Score: 10 Pain Location: Back-Lower right leg, right buttock Description: Aching;Burning;Sharp;Throbb ing;Stabbing Duration Amount of Time: 1 Duration Units: Weeks Frequency: Continuous Intervention: Medication advilPain Radiation: to the right foot/feetAggravating Factors: Flexion, Extension, RotationAlleviating Factors: Side-lyingPain Ratio: Pain in the leg(s) is greater than in the backDERMATOMAL DISTRIBUTION:Right: [id number] STATUS: Minimal Ambulation/Wheelchair BoundANTIPLATELET OR ANTICOAGULATION STATUS: NoPREVIOUS CONSERVATIVE TREATMENTS:OpioidsPREVIOUS SPINAL SURGERY: NoneThere is no problem list on file for this patient.No past medical history on file.No past surgical history on file.No family history on file.Social History Marital status: Spouse name: Years of education: Number of children:Social History Main Topics Smoking status: Former Smoker Packs/day: 1.00 Years: 25.00 Types: Cigarettes Smokeless tobacco: Never Used Alcohol use: No Drug use: NoALLERGIESAllergen Reactions- Aspirin Other: See CommentsMEDICATIONS:flutica sone-salmeterol (ADVAIR) 100-50 mcg/dose dsdv Advair Diskus 100mcg-50 mcg/dose powder for inhalationalbuterol (PROVENTIL) 2.5 mg /3 mL (0.083 %) nebulizer solution albuterolsulfate 2.5 mg/3 mL (0.083 %) solution for nebulizationbaclofen (LIORESAL) 10 mg tabletcitalopram (CELEXA) 20 mg tablet citalopram 20 mg tabletmethylPREDNISolone (MEDROL DOSE-PACK) 4 mg Dose-PackmethylPREDNISolone (MEDROL DOSE-PACK) 4 mg Dose-Pack methylprednisolone 4mg tablets in a dose packREVIEW OF SYSTEMS:GENERAL: No weight loss or malaiseMUSCULOSKELETAL: Negative for joint pain, swelling or muscle painNEURO: No history of headaches, syncope, paralysis, seizures or tremorsOBJECTIVE:PHYSICAL EXAMThere were no vitals taken for this visit.GENERAL APPEARANCE: Well nourished, well developed, and no apparentdistress.NEURO PSYCH: Patient oriented to person, place, and time. Mood pleasant.Benign affect.MUSCULOSKELETAL VISUAL INSPECTION CERVICAL: WNL THORACIC: WNL LUMBAR: WNLMOTOR: 5/5 in all muscle groups.SENSORY: L5 impaired rightGAIT: Antalgic.NEURO TESTS:+ Lesegue's on RCannot fully extend for SLRDATA REVIEWCCF records reviewedASSESSMENT/PLANAcut e L5-S1 herniated diskAissatoumaria elena Macias will continue with medical management of his/hercondition.1. Consults: Medical Spine Intervention2. NSAIDs3. Physical therapy4. Follow up: Following above in 3 months if pain persistsI reviewed the information obtained and documented by the resident. Iexamined the patient and evaluated all available films and pertinentdocuments. We discussed the case and I agree with the plans as outlined inthis note.SIGNATURE: Tahir Ann MD PATIENT NAME: Tiera MagallonATE: February 16, 2018 : 1:15 PM PAGER: Tyrell [facility] CNOVon 02-15-2018 CNOV Office Visit (SPNMAV) -------COLLEENMARVATIERA A ([id number]) [address] [facility] Time Provider Yoxejdpila08/29/18 1:20 PM ZORAIDA ALMANZAR SPNMAV During your visit today, we recorded the following information about you: Blood pressure Weight Height 122/84 68 kg 1.6 Hector Robert DO David 02/15/2018 2:25 PM SignedSpine Care Path Low Back Pain - Acute (0 - 6 weeks) Initial ExamSUBJECTIVEHISTORY OF PRESENT ILLNESS:Tiera Macias is a 47 year old female who presents with a chief complaint oflow back pain and is seen in consultation requested by Dr. Granger for an opinionregarding left sided low back pain. My final recommendations will becommunicated back to the requesting physician by way of shared medical recordor letter via US mail. Patient states left sided low back pain startedapproximately 6 days ago. States pain is worse when standing or sitting.Somewhat better when lying on side. [place].Other Issues Addressed at the Visit Today: None.Precipitating Event: NonePAIN EVALUATION 02/15/2018 Pain Score: 10 Pain Location: Back-Lower Description: Sharp;Stabbing;Numbness;Tin gling;Radiating;Aching Duration Units: Months Frequency: Continuous Intervention: Medication;Reposition;Cold; HeatPain Radiation: to the right foot/feetAggravating Factors: Standing, WalkingAlleviating Factors: Medications, Heat application, Cold application,Side-lyingPrior Therapy: NSAIDS for 3 Months or Greater (Ibuprofen), Muscle relaxants,Opioids and Oral steroidsLitigation: NoWorkers' Compensation: NoPED RED FLAGS YELLOW AND BLUE FLAGSNo No-Significant Injury to SpineNo-Use of Steroids for Prolonged DurationNo-Loss of Bowel/Bladder Control, Genital/Anal NumbnessNo-Recent Use of Intravenous (IV) DrugsNo-Difficulty Keeping Balance when WalkingNo-Progressive Weakness in Arms/LegsNo-History of Any Type of CancerNo-Unable to Find Position of ComfortNo-Pain at Night that Disturbs SleepNo-Recent Elevated Temp with Unknown CauseNo-Diagnosed with OsteoporosisNo-Unintentiona l Weight Loss or Gain No-Neg Attitude; Back Pain is DisablingNo-Avoiding Activity (for Fear of Pain)No-Depression or Anxiety DisordersNo-Social ProblemsNo-Substance Use DisorderNo-Job DissatisfactionNo-Financial Disincentives*PED (Patient Entered Data) osteoporosis flag will display for females 55 yearsor older and males 75 years or older.There is no problem list on file for this patient.No past medical history on file.No past surgical history on file.Social History Marital status: Spouse name: Years of education: Number of children:Social History Main Topics Smoking status: Former Smoker Packs/day: 1.00 Years: 25.00 Types: Cigarettes Smokeless tobacco: Never Used Alcohol use: No Drug use: NoNo family history on file.ALLERGIESAllergen Reactions- Aspirin Other: See CommentsCURRENT MEDICATIONS:fluticasone-gricel meterol (ADVAIR) 100-50 mcg/dose dsdv Advair Diskus 100 mcg-50mcg/dose powder for inhalationalbuterol (PROVENTIL) 2.5 mg /3 mL (0.083 %) nebulizer solution albuterolsulfate 2.5 mg/3 mL (0.083 %) solution for nebulizationbaclofen (LIORESAL) 10 mg tabletcitalopram (CELEXA) 20 mg tablet citalopram 20 mg tabletmethylPREDNISolone (MEDROL DOSE-PACK) 4 mg Dose-PackmethylPREDNISolone (MEDROL DOSE-PACK) 4 mg Dose-Pack methylprednisolone 4 mgtablets in a dose packREVIEW OF SYSTEMS:PAIN ASSESSMENT: See HPI.GENERAL: Denies fever, chills malaise and weight loss.HEENT: No recent change in vision or hearing.CARDIOVASCULAR: Denies chest pain, history of A-fib, valvular disease, orpacemaker/ICD.RESPIRATORY : Denies SOB, sputum production, and hemoptysis. and asthmaGI: HeartburnGU: Denies change in frequency or urgency, kidney disease, and burning withurination.MUSCULOSKELET AL: Negative for joint pain or swelling, back pain or muscle pain.SKIN: Denies rash or itching.PSYCHOLOGICAL: Denies uncontrolled depression or anxiety.NEURO: HeadachesENDOCRINE: Denies diabetes, thyroid disease.HEMATOLOGY/LYMPHOLO GY: Denies cancer, bleeding or clotting disorders,anemia,and DVT's.ALLERGIC/IMMUNOLOGICA L: Denies risks for infection, or recent MRSA infections.OBJECTIVE:PHYSIC AL EXAMBP 122/84 Ht 160 cm (5' 3 ) Wt 68 kg (150 lb) BMI 26.57 kg/m?Imaging Ordered:For possible Lumbar Radiculopathy due to progressive leg weakness.SIGNATURE: Zoraida Almanzar DO PATIENT NAME: Tiera MagallonATE: February 15, 2018 : 1:47 PMHPI explored in detail with patient and edited as necessary.See notes for physical exam and treatment plan.CC - LBP with rt leg pain for 1 week.PHYSICAL EXAM: very limitedGENERAL APPEARANCE - well nourished, well hydrated, significant distress,unable to sit, tearful ,wearing a TENS unitHEAD - Normal cephalic, atraumaticEYES - Extra ocular movement intact, no conjunctivitis, no nystagmus.EARS - No drainage noted, pinna intactNOSE - No epistaxis notedTHROAT - No thyromegaly, no gross lymphadenopathyABDOMEN - no guarding notedNEURO - Alert and oriented, cooperative, answers questions appropriatelyGAIT - unable to testSENSORY EXAM - decreased to light touch over rt lateral calf and dorsum of rtfootMOTOR STRENGTH DURING SEATED NEURO EXAM - No apparent weakness bilaterally inHip flexors, knee extensors, plantar flexors, dorsiflexors and extensor halluxlongus.MUSCLE STRETCH REFLEXES - symmetric bilaterally in patella and achilles.Negative Lang's b/lROM - Lumbar not testedKNEE ROM - No significant loss in terminal extension on the lt but unable totolerate extension of rt kneeANKLE ROM - no significant loss in plantar flexion and dorsiflexion b/l.TENDERNESS - Pain with palpation over rtl L5-s1 paraspinous muscles.OLIVIER SIGNS -1) Tenderness: Inappropriate2) Simulation/Axial Loading/ROT: Appropriate3) Distraction: Seated SLR: Appropriate4) Regional Disturbances: Appropriate5) Overreaction: Negative.NEURO/PHYSICAL SIGNS: Positive rt seated straight leg raising around 45degrees. Patricks test was negative b/l.RADIOGRAPHY: Reports and films reviewed with patient.Lumbar spine X-Rays : 02/12/18: Official reports pending.Loss of disc ht at L5/z9BTPKQIBMAB:See diagnosis.PLAN:Discussed various options including non-surgical and surgical optionsextensively. Discussed pathology and the use of medications also. Pt would liketo consider surgical options.Pt was seen in the ER recently.Pt appears to have an acute disc herniation. Did have some pain behavior withpalpation over rt lumbosacral junction.Given her worsening symptoms, unable to sit and tolerate her exam, we willsecure a stat Lumbar spine MRI: - R/o HNP vs stenosis vs occult pathologyResults will help us with possible planning for invasive options includingfluoroscopic guided injections and surgical options.f/u with me for review of study and additional recommendations.Surgical evaluation. Pt is recommended to present with all the pertinentstudies.If needed, I am happy to offer spinal injections if surgical options are notexercised.Follow up with primary physician for routine care, blood pressure evaluation,labwork, physical exam as scheduled and for any medical concerns.I have answered all the questions regarding patients current diagnosis, careand treatment plan to patients satisfaction during today's visit.Patient verbalize understanding of current diagnosis and treatment plan.Follow up with me as scheduledNotes from todays visit will be forwarded to consulting/requesting physician.Zoraida Almanzar DO, MBAReferring Provider: SELF [[id number]]Allergies As of Date: 02/15/2018 Noted Allergy ReactionASPIRIN 04/07/2014 14 - Other: See CommentsDate Reviewed: 02/15/2018Reviewed by: Zoraida Almanzar - Fully AssessedReason for Visit: New Patient [172] Cmt: left sided low back painPrimary Visit Diagnosis:Lumbar disc herniation [M51.26] Other Visit Diagnoses:Radiculopathy, lumbar region [M54.16] Acute right-sided low back pain with right-sided sciatica [M54.41]Order(s):MRI LUMBAR SPINE WO IVCON [[id number]] Order #: [id number] FUTURE CONSULT TO SPINE SURGERY [[id number]] Order #: [id number]: 1Prescriptions as of 02/15/2018 Sig: FLUTICASONE 100 MCG-SALMETERO* Advair Diskus 100 mcg-50 mcg/* ALBUTEROL SULFATE 2.5 MG/3 ML* albuterol sulfate 2.5 mg/3 mL* BACLOFEN 10 MG TABLET CITALOPRAM 20 MG TABLET citalopram 20 mg tablet METHYLPREDNISOLONE 4 MG TABLE* METHYLPREDNISOLONE 4 MG TABLE* methylprednisolone 4 mg table*Problem List As Of Date: 02/15/2018(None) Status:Closed by ZORAIDA ALMANZAR DO on 02/15/18 [facility] LUMBAR SPINE WO IVCONon 02-15-2018 MRI LUMBAR SPINE WO IVCON * * *Final Report* * *DATE OF EXAM: Feb 15 2018 5:23PM MDM 0303 - MRI LUMBAR SPINE WO IVCON / REASON: M54.41-Acute right-sided low back pain with right-sided sciatica * * * * Physician Interpretation * * * * EXAMINATION: MRI LUMBAR SPINE WO IVCONCLINICAL HISTORY: Pain in low back. Numbness in the right foot.TECHNIQUE: Routine lumbosacral spine MR protocol without gadolinium.MQ: [id number]: None.RESULT:Counting reference: Lumbosacral junction. For the purposes of this report, L4-5 is considered the level of the iliac crest and there are 5 lumbar-type vertebrae. Anatomic Variants: None.Alignment: Alignment is anatomic.Bone marrow signal/fracture: No evidence of pathologic marrow infiltration. No evidence of prior fracture.Conus: The conus is within normal limits of signal intensity and morphology.Paraspinal soft tissues: Paraspinal soft tissues are within normal limits.Lower thoracic spine: Visualized lower thoracic canal and foramina are patent.T12-L1: Canal and foramina are patent.L1-L2: Mild disc height loss. Canal and foramina are patent.L2-L3: Mild disc height loss and facet hypertrophy. Canal and foramina are patent.L3-L4: Mild disc height loss and facet hypertrophy. Canal and foramina are patent.L4-L5: Disc space is maintained. Mild facet hypertrophic changes. Canal and foramina are patent.L5-S1: Moderate disc height loss. Prominent right paracentral extrusion extends inferiorly from the disc space and compresses the traversing right S1 nerve root. Canal is patent. The foramina are patent bilaterally.Sacrum and iliac wings: The visualized sacrum and iliac wings are within normal limits.IMPRESSION:Right paracentral inferiorly directed disc extrusion at L5-S1 contacts the traversing right S1 nerve root.Mild degenerative changes at other levels without significant neural effect.Anatomic Variant: None. L4-5 is considered the level of the iliac crest and assume there are 5 lumbar-type vertebrae.Bus Steward: PRAFUL Transcribe Date/Time: Feb 15 2018 5:30PDictated by : GERALD MARK MDThisebastian examination was interpreted and the report reviewed and electronically signed by: GERALD MARK MD on Feb 15 2018 5:35PM [id number] [facility] PROGRESSon 02-15-2018 Protein mass conc HNO ID: [id number] thor: Zoraida AlmanzarScarlet: (none)Author Type: PhysicianType: Progress NotesFiled: 02/15/2018 2:25 PMNote Text:[facility]ine [facility] Path Low Back Pain - Acute (0 - 6 weeks) Initial ExamSUBJECTIVEHISTORY OF PRESENT ILLNESS:Tiera Macias is a 47 year old female who presents with a chiefcomplaint of low back pain and is seen in consultation requested by for an opinion regarding left sided low back pain. My finalrecommendations will be communicated back to the requesting physician byway of shared medical record or letter via US mail. Patient states leftsided low back pain started approximately 6 days ago. States pain isworse when standing or sitting. Somewhat better when lying on side. Hasbeen seen in ED in [place] numerous times over past week.Other Issues Addressed at the Visit Today: None.Precipitating Event: NonePAIN EVALUATION 02/15/2018 Pain Score: 10 Pain Location: Back-Lower Description: Sharp;Stabbing;Numbness;Tin gling;Radiating;Aching Duration Units: Months Frequency: Continuous Intervention: Medication;Reposition;Cold; HeatPain Radiation: to the right foot/feetAggravating Factors: Standing, WalkingAlleviating Factors: Medications, Heat application, Cold application,Side-lyingPrior Therapy: NSAIDS for 3 Months or Greater (Ibuprofen), Musclerelaxants, Opioids and Oral steroidsLitigation: NoWorkers' Compensation: NoPED RED FLAGS YELLOW AND BLUE FLAGSNo No-Significant Injury to SpineNo-Use of Steroids for Prolonged DurationNo-Loss of Bowel/Bladder Control, Genital/Anal NumbnessNo-Recent Use of Intravenous (IV) DrugsNo-Difficulty Keeping Balance when WalkingNo-Progressive Weakness in Arms/LegsNo-History of Any Type of CancerNo-Unable to Find Position of ComfortNo-Pain at Night that Disturbs SleepNo-Recent Elevated Temp with Unknown CauseNo-Diagnosed with OsteoporosisNo-Unintentiona l Weight Loss or Gain No-Neg Attitude; Back Pain is DisablingNo-Avoiding Activity (for Fear of Pain)No-Depression or Anxiety DisordersNo-Social ProblemsNo-Substance Use DisorderNo-Job DissatisfactionNo-Financial Disincentives*PED (Patient Entered Data) osteoporosis flag will display for females 55years or older and males 75 years or older.There is no problem list on file for this patient.No past medical history on file.No past surgical history on file.Social History Marital status: Spouse name: Years of education: Number of children:Social History Main Topics Smoking status: Former Smoker Packs/day: 1.00 Years: 25.00 Types: Cigarettes Smokeless tobacco: Never Used Alcohol use: No Drug use: NoNo family history on file.ALLERGIESAllergen Reactions- Aspirin Other: See CommentsCURRENT MEDICATIONS:fluticasone-gricel meterol (ADVAIR) 100-50 mcg/dose dsdv Advair Diskus 100mcg-50 mcg/dose powder for inhalationalbuterol (PROVENTIL) 2.5 mg /3 mL (0.083 %) nebulizer solution albuterolsulfate 2.5 mg/3 mL (0.083 %) solution for nebulizationbaclofen (LIORESAL) 10 mg tabletcitalopram (CELEXA) 20 mg tablet citalopram 20 mg tabletmethylPREDNISolone (MEDROL DOSE-PACK) 4 mg Dose-PackmethylPREDNISolone (MEDROL DOSE-PACK) 4 mg Dose-Pack methylprednisolone 4mg tablets in a dose packREVIEW OF SYSTEMS:PAIN ASSESSMENT: See HPI.GENERAL: Denies fever, chills malaise and weight loss.HEENT: No recent change in vision or hearing.CARDIOVASCULAR: Denies chest pain, history of A-fib, valvular disease, orpacemaker/ICD.RESPIRATORY : Denies SOB, sputum production, and hemoptysis. and asthmaGI: HeartburnGU: Denies change in frequency or urgency, kidney disease, and burningwith urination.MUSCULOSKELETAL: Negative for joint pain or swelling, back pain or musclepain.SKIN: Denies rash or itching.PSYCHOLOGICAL: Denies uncontrolled depression or anxiety.NEURO: HeadachesENDOCRINE: Denies diabetes, thyroid disease.HEMATOLOGY/LYMPHOLO GY: Denies cancer, bleeding or clotting disorders,anemia,and DVT's.ALLERGIC/IMMUNOLOGICA L: Denies risks for infection, or recent MRSAinfections.OBJECTIVE:PH YSICAL EXAMBP 122/84 Ht 160 cm (5' 3 ) Wt 68 kg (150 lb) BMI 26.57 kg/m?Imaging Ordered:For possible Lumbar Radiculopathy due to progressive leg weakness.SIGNATURE: Zoraida Almanzar DO PATIENT NAME: Tiera MagallonATE: February 15, 2018 : 1:47 PMHPI explored in detail with patient and edited as necessary.See notes for physical exam and treatment plan.CC - LBP with rt leg pain for 1 week.PHYSICAL EXAM: very limitedGENERAL APPEARANCE - well nourished, well hydrated, significant distress,unable to sit, tearful ,wearing a TENS unitHEAD - Normal cephalic, atraumaticEYES - Extra ocular movement intact, no conjunctivitis, no nystagmus.EARS - No drainage noted, pinna intactNOSE - No epistaxis notedTHROAT - No thyromegaly, no gross lymphadenopathyABDOMEN - no guarding notedNEURO - Alert and oriented, cooperative, answers questions appropriatelyGAIT - unable to testSENSORY EXAM - decreased to light touch over rt lateral calf and dorsum ofrt footMOTOR STRENGTH DURING SEATED NEURO EXAM - No apparent weakness bilaterallyin Hip flexors, knee extensors, plantar flexors, dorsiflexors and extensorhallux longus.MUSCLE STRETCH REFLEXES - symmetric bilaterally in patella and achilles.Negative Lang's b/lROM - Lumbar not testedKNEE ROM - No significant loss in terminal extension on the lt but unableto tolerate extension of rt kneeANKLE ROM - no significant loss in plantar flexion and dorsiflexion b/l.TENDERNESS - Pain with palpation over rtl L5-s1 paraspinous muscles.OLIVIER SIGNS -1) Tenderness: Inappropriate2) Simulation/Axial Loading/ROT: Appropriate3) Distraction: Seated SLR: Appropriate4) Regional Disturbances: Appropriate5) Overreaction: Negative.NEURO/PHYSICAL SIGNS: Positive rt seated straight leg raising around 45degrees. Patricks test was negative b/l.RADIOGRAPHY: Reports and films reviewed with patient.Lumbar spine X-Rays : 02/12/18: Official reports pending.Loss of disc ht at L5/[id number]:See diagnosis.PLAN:Discussed various options including non-surgical and surgical optionsextensively. Discussed pathology and the use of medications also. Pt wouldlike to consider surgical options.Pt was seen in the ER recently.Pt appears to have an acute disc herniation. Did have some pain behaviorwith palpation over rt lumbosacral junction.Given her worsening symptoms, unable to sit and tolerate her exam, we willsecure a stat Lumbar spine MRI: - R/o HNP vs stenosis vs occult pathologyResults will help us with possible planning for invasive options includingfluoroscopic guided injections and surgical options.f/u with me for review of study and additional recommendations.Surgical evaluation. Pt is recommended to present with all the pertinentstudies.If needed, I am happy to offer spinal injections if surgical options arenot exercised.Follow up with primary physician for routine care, blood pressureevaluation, labwork, physical exam as scheduled and for any medicalconcerns.I have answered all the questions regarding patients current diagnosis,care and treatment plan to patients satisfaction during today's visit.Patient verbalize understanding of current diagnosis and treatment plan.Follow up with me as scheduledNotes from todays visit will be forwarded to consulting/requestingphysic corinna.Zoraida Almanzar DO, MBA Normal [facility] SR-XR Spine Lumbosacral 2 or 3 Views IMPORTon 02-12-2018 SR-XR Spine Lumbosacral 2 or 3 Views IMPORT Images were obtained outside of [facility] [id number] Normal [facility] Vital Signs Date Time Vital Sign Value Performing Clinician Facility 02-18-2023 10:30-0400 Body height 161.29 cm Christina Montana Other [facility] Other 02-18-2023 10:30-0400 Body mass index (BMI) [Ratio] 27.9 kg/m2 Christina Montana Other [facility] Other 02-18-2023 10:30-0400 Body temperature 98.2 [degF] Christina Montana Other [facility] Other 02-18-2023 10:30-0400 Body weight 72.58 kg Christina Nan Other [facility] Other 02-18-2023 10:30-0400 Diastolic blood pressure 78 mm[Hg] Christina Nan Other [facility] Other 02-18-2023 10:30-0400 Respiratory rate 18 /min Christina Nan Other [facility] Other 02-18-2023 10:30-0400 SaO2% (BldA) [Mass fraction] 98 % Christina Nan Other [facility] Other 02-18-2023 10:30-0400 Systolic blood pressure 134 mm[Hg] Christina Nan Other [facility] Other 12-20-2022 11:40-0400 Body height 161.29 cm Christina Nan Other [facility] Other 12-20-2022 11:40-0400 Body mass index (BMI) [Ratio] 27.55 kg/m2 Christina Nan Other [facility] Other 12-20-2022 11:40-0400 Body temperature 97 [degF] Christina Nan Other [facility] Other 12-20-2022 11:40-0400 Body weight 71.67 kg Christina Nan Other [facility] Other 12-20-2022 11:40-0400 Diastolic blood pressure 79 mm[Hg] Christina Nan Other [facility] Other 12-20-2022 11:40-0400 SaO2% (BldA) [Mass fraction] 98 % Christina Rameymond Other [facility] Other 12-20-2022 11:40-0400 Systolic blood pressure 142 mm[Hg] Christina Rameymond Other [facility] Other 11-17-2022 15:48-0400 Blood Pressure Location Anna Hassan [facility] 11-17-2022 15:48-0400 Body temperature 97.16 [degF] Anna Hassan [facility] 11-17-2022 15:48-0400 Diastolic blood pressure 75 mm[Hg] Anna Hassan [facility] 11-17-2022 15:48-0400 Heart rate 63 /min Anna Hassan [facility] 11-17-2022 15:48-0400 Systolic blood pressure 124 mm[Hg] Anna Hassan [facility] 07-26-2021 11:45-0400 Body height 161.29 cm Matteo Person Other [facility] Other 07-26-2021 11:45-0400 Body mass index (BMI) [Ratio] 28.94 kg/m2 Matteo Person Other [facility] Other 07-26-2021 11:45-0400 Body weight 75.3 kg Matteo Person Other [facility] Other 07-26-2021 11:45-0400 Diastolic blood pressure 80 mm[Hg] Matteo Person Other [facility] Other 07-26-2021 11:45-0400 SaO2% (BldA) [Mass fraction] 99 % Matteo Person Other [facility] Other 07-26-2021 11:45-0400 Systolic blood pressure 120 mm[Hg] Matteo Person Other [facility] Other Encounters Encounter Date Encounter Type Care Provider Facility Start: 04-27-2023 End: 04-27-2023 ambulatory Anna Robert Sonya Facility:[facility] Start: 02-18-2023 End: 02-18-2023 ambulatory Christinanazario Montana Other [facility] Other Start: 02-18-2023 Office outpatient vi sit 15 minutes Christina Nan [facility] Start: 12-20-2022 End: 12-20-2022 ambulatory Christina Nan Other [facility] Other Start: 12-20-2022 Office outpatient vi sit 15 minutes Christina Nan [facility] Start: 12-01-2022 End: 12-02-2022 ambulatory Annasanto Casonmetz Facility:[facility] Start: 12-01-2022 End: 12-01-2022 Patient encounter procedure Anna Robert Sonya [facility] Start: 11-17-2022 End: 11-18-2022 ambulatory Anna Robert Sonya Facility:[facility] Start: 11-17-2022 End: 11-17-2022 Patient encounter procedure Anna Robert Sonya [facility] Start: 07-18-2022 End: 07-19-2022 ambulatory Anna Robert Sonya Facility:[facility] Start: 07-18-2022 End: 07-18-2022 Patient encounter procedure Anna Robert Hassan [facility] Start: 06-05-2022 Encounter for genera l adult medical examination without abnormal findings DR GERALD SINGH [facility] Start: 06-04-2022 End: 06-05-[address] YANELY WEINER Facility:[facility] Start: 06-04-2022 End: 06-05-2022 Encounter for general adult medical examination without abnormal findings DR GERALD SINGH Facility:[facility] Start: 05-30-2022 End: 05-30-[address] LIZBETH SEYMOUR Facility:[facility] Start: 01-22-2022 End: 01-22-[address] GERALD SINGH Facility:[facility] Start: 09-25-2021 End: 09-26-[address] DERIK LLOYD Facility:[facility] Start: 08-22-2021 (Procedure) Short Matteo Person [facility] Start: 08-22-2021 End: 08-22-2021 ambulatory Matteo Raza Other [facility] Other Start: 08-12-2021 End: 08-12-2021 ambulatory Matteo Raza Other [facility] Other Start: 08-12-2021 Telephone encounter Matteo Raza [facility] Start: 07-30-2021 End: 07-30-2021 ambulatory Matteo Raza Other [facility] Other Start: 07-30-2021 Telephone encounter Matteo Raza [facility] Start: 07-26-2021 End: 07-26-2021 ambulatory Matteo Raza Other [facility] Other Start: 07-26-2021 Office outpatient vi sit 25 minutes Matteo Raza [facility] Start: 12-01-2018 End: 12-02-2018 Patient encounter procedure LIZBETH GLOVER Facility:[facility] Start: 03-16-2018 End: 03-17-2018 Patient encounter procedure Tahir ANN [facility] Start: 02-18-2018 End: 02-18-2018 Patient encounter procedure ZORAIDA A [facility] Start: 02-16-2018 End: 02-17-2018 Patient encounter procedure Tahir ANN [facility] Start: 02-15-2018 Patient encounter procedure ZORAIDA A [facility] Start: 02-15-2018 End: 02-15-2018 Patient encounter procedure ZORAIDA A [facility] Procedures Date Procedure Procedure Detail Performing Clinician Start: 05-02-2021 Colonoscopy Anna Hassan Start: 12-01-2018 ANESTH SURGERY OF SHOULDER EDISONJIN Jones Start: 12-01-2018 Arthroscopy shoulder rotator cuff repair LIZBETH GLOVER Anxiety disorder (disorder) Anna Hassan Arthroscopy of knee Annasanto Nolan Cholecystectomy Anna Balderas nakia Colonoscopy Anna Hassan Dilation and curettage of uterus Anna Hassan Esophagogastroduoden oscopy gastric outlet reduction Anna Hassan Excision of Bartholin's cyst Anna Hassan Gastroesophageal ref lux disease (disorder) Anna Hassan History of - migrain e (context-dependent category) Anna Hassan History of operative procedure on shoulder Anna Hassan History of operative procedure on shoulder Anna Hassan Comment on above: X7 Irregular periods (finding) Anna Hassan Labial cyst (disorder) Anna Hassan Laparoscopic cholecystectomy Anna Hassan 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) Anna Hassan Immunizations Immunization Date Immunization Notes Care Provider Fa debbiety 03-18-2021 SARS-CoV-2 (COVID-19 ) mRNA BNT-162b2 vax Anna Hassan [facility] Comment on above: Result Comment: 2022: [id number] 05-14-2012 hepatitis A vaccine, adult dosage Anna Hassan [facility] 05-14-2012 hepatitis B vaccine, pediatric or pediatric/adolescent dosage Anna Hassan [facility] NEGATED: Highlighted row has not occurred!02-27-2021 influenza virus vaccine, unspecified formulation Anna Hassan [facility] Payers Date Payer Category Payer Unknown [id number] 1970 Unknown [id number] 2.16.8 [id number] 1970 Unknown [id number] 2.16.84 [id number] 1969 Unknown [id number] 2.16.84 [id number] 1969 Unknown [id number] 2.16.84 [id number] 1969 Unknown [id number] 2.16.84 [id number] 1969 Unknown [id number] 2.16.84 [id number] 1969 Unknown [id number] 2.16.8 [id number] 1969 Unknown [id number] 2.16.8 [id number] 1969 Unknown [id number] 2.16.8 [id number] 1969 Unknown [id number] 2.16.8 [id number] 1970 Unknown [id number] 2.16.840 .[id number] 1960 [place] [id number] Unknown [id number] Social History Date Type Detail Facility Sex Assigned At [facility] Start: 05-02-2021 End: 11-17-2022 Tobacco smoking status Ex-smoker (finding) [facility] Comment on above: denies Tobacco smoking status Never [facility] Functional Status Date Assessment Result Facility 11-17-2022 Functional Status N/A [facility] Clinical Notes 07-26-2021 to 02-18-2023 Note Date & Type Note Facility 02-18-2023 Evaluation note Encounter Date Diagnosis Assessment Notes Feb, Sore throat (ICD-10 - J02.9) Feb, Acute otitis externa of right ear, unspecified type (ICD-10 - H60.501) Otitis externa home care material was printed Drink plenty fluids, get plenty of rest. Use the eardrops as prescribed. Use the fluticasone nasal spray as prescribed and your symptoms improved. Take Tylenol or Motrin as needed for aches pains or fevers. Follow-up with your family physician if no improvement in 2 to 3 days Feb, Bilateral otitis media with effusion (ICD-10 - H65.93) [facility] Other 09-02-2023 Evaluation note* Encounter Date Diagnosis Assessment Notes Treatment Notes Treatment Clinical Notes Dec, Contact dermatitis, unspecified contact dermatitis type, unspecified trigger (ICD-10 - L25.9) Drink plenty fluids, get plenty of rest. Take the prednisone as prescribed until gone starting tomorrow. Take Benadryl as needed for itching. You may continue to use numbing lotion to the rash. Follow-up with your family physician if no improvement in 2 to 3-day Dec, Other Contact dermati kwadwo home care material was printed [facility] Other 07-31-2023 Hospital Discharge instructions Patient Education 11/17/2022 16:00:05 Diverticulitis Diverticulitis Diverticulitis is infection or inflammation of small pouches (diverticula) in the colon that form due to a condition called diverticulosis. Diverticula can trap stool (feces) and bacteria, causing infection and inflammation. Diverticulitis may cause severe stomach pain and diarrhea. It may lead to tissue damage in the colon that causes bleeding or blockage. The diverticula may also burst (rupture) and cause infected stool to enter other areas of the abdomen. What are the causes? This condition is caused by stool becoming trapped in the diverticula, which allows bacteria to grow in the diverticula. This leads to inflammation and infection. What increases the risk? You are more likely to develop this condition if you have diverticulosis. The risk increases if you: Are overweight or obese. Do not get enough exercise. Drink alcohol. Use tobacco products. Eat a diet that has a lot of red meat such as beef, pork, or jason. Eat a diet that does not include enough fiber. High-fiber foods include fruits, vegetables, beans, nuts, and whole grains. Are over 40 years of age. What are the signs or symptoms? Symptoms of this condition may include: Pain and tenderness in the abdomen. The pain is normally located on the left side of the abdomen, but it may occur in other areas. Fever and chills. Nausea. Vomiting. Cramping. Bloating. Changes in bowel routines. Blood in your stool. How is this diagnosed? This condition is diagnosed based on: Your medical history. A physical exam. Tests to make sure there is nothing else causing your condition. These tests may include: ?Blood tests. ?Urine tests. ?CT scan of the abdomen. How is this treated? Most cases of this condition are mild and can be treated at home. Treatment may include: Taking ejio-sjh-nykyikq pain medicines. Following a clear liquid diet. Taking antibiotic medicines by mouth. Resting. More severe cases may need to be treated at a hospital. Treatment may include: Not eating or drinking. Taking prescription pain medicine. Receiving antibiotic medicines through an IV. Receiving fluids and nutrition through an IV. Surgery. When your condition is under control, your health care provider may recommend that you have a colonoscopy. This is an exam to look at the entire large intestine. During the exam, a lubricated, bendable tube is inserted into the anus and then passed into the rectum, colon, and other parts of the large intestine. A colonoscopy can show how severe your diverticula are and whether something else may be causing your symptoms. Follow these instructions at home: Medicines Take bcvh-mux-pdrwbgv and prescription medicines only as told by your health care provider. These include fiber supplements, probiotics, and stool softeners. If you were prescribed an antibiotic medicine, take it as told by your health care provider. Do notstop taking the antibiotic even if you start to feel better. Ask your health care provider if the medicine prescribed to you requires you to avoid driving or using machinery. Eating and drinking Follow a full liquid diet or another diet as directed by your health care provider. After your symptoms improve, your health care provider may tell you to change your diet. He or she may recommend that you eat a diet that contains at least 25 grams (25 g) of fiber daily. Fiber makesit easier to pass stool. Healthy sources of fiber include: ?Berries. One cup contains 4 8 grams of fiber. ?Beans or lentils. One-half cup contains 5 8 grams of fiber. ?Green vegetables. One cup contains 4 grams of fiber. Avoid eating red meat. General instructions Do not use any products that contain nicotine or tobacco, such as cigarettes, e- cigarettes, and chewing tobacco. If you need help quitting, ask your health care provider. Exercise for at least 30 minutes, 3 times each week. You should exercise hard enough to raise your heart rate and break a sweat. Keep all follow-up visits as told by your health care provider. This is important. You may need to have a colonoscopy. Contact a health care provider if: Your pain does not improve. Your bowel movements do not return to normal. Get help right away if: Your pain gets worse. Your symptoms do not get better with treatment. Your symptoms suddenly get worse. You have a fever. You vomit more than one time. You have stools that are bloody, black, or tarry. Summary Diverticulitis is infection or inflammation of small pouches (diverticula) in the colon that form due to a condition called diverticulosis. Diverticula can trap stool (feces) and bacteria, causing infection and inflammation. You are at higher risk for this condition if you have diverticulosis and you eat a diet that does not include enough fiber. Most cases of this condition are mild and can be treated at home. More severe cases may need to be treated at a hospital. When your condition is under control, your health care provider may recommend that you have an examcalled a colonoscopy. This exam can show how severe your diverticula are and whether something elsemay be causing your symptoms. Keep all follow-up visits as told by your health care provider. This is important. This information is not intended to replace advice given to you by your health care provider. Make sure you discuss any questions you have with your health care provider. Document Revised: 01/16/2020 Document Reviewed: 01/16/2020 [email or web address] Patient Education 2022 [employer]. Follow Up Care 10/15/2022 08:09:26 With:Anna Hassan CNP Address: When:1 month [facility] 07-31-2023 Evaluation + Plan note Future Scheduled Tests Radiology* CT Abdomen/Pelvis w/ Contrast 11/17/22 [facility] 02-10-2023 NotePROCEDURE: XR ANKLE RT MIN 3 VIEWS, XR FOOT RT MIN 3 VIEWS COMPARISON: None. HISTORY: Joint pain FINDINGS: BONES:No acute fracture or dislocation of the foot or ankle. Minimal enthesopathic spurring of the calcaneus at the Achilles insertion SOFT TISSUES:Mild lateral soft tissue swelling EFFUSION:None visible. OTHER: Negative. IMPRESSION: Minimal lateral soft tissue swelling No acute fracture Electronically authenticated by: LIZBETH SEYMOUR Date: 2022-05-30 13:52[facility]02-10-2023 NotePROCEDURE: XR ANKLE RT MIN 3 VIEWS, XR FOOT RT MIN 3 VIEWS COMPARISON: None. HISTORY: Joint pain FINDINGS: BONES:No acute fracture or dislocation of the foot or ankle. Minimal enthesopathic spurring of the calcaneus at the Achilles insertion SOFT TISSUES:Mild lateral soft tissue swelling EFFUSION:None visible. OTHER: Negative. IMPRESSION: Minimal lateral soft tissue swelling No acute fracture Electronically authenticated by: LIZBETH SEYMOUR Date: 2022-05-30 13:52[facility]04-08-2022 Evaluation note* Encounter Date Diagnosis Assessment Notes Treatment Notes Treatment Clinical Notes Jul, Sacroiliitis (ICD-10 - M46.1) 50 year old female here for follow up for chronic pain. She voices complaints of low back pain, denying radicular symptoms. Patient reports significant releif for several months following bilateral sacroiliac joint injection in the past. She states she feels that her pain is triggered by sitting for an extended period of time. She feels her pain negatively impacts her activities of daily living. Anatomy of spine as well as different treatment options were discussed in detail with patient in regards to patients condition. I recommend we proceed with a bilateral sacroiliac joint injection under fluoroscopic guidance as this previously provided significant relief for several months. Risks and benefits of procedure explained to patient; patient verbalizes understanding. In the meantime, I will order updated imaging of the lumbar spine to further evaluate her pain. Jul, Lumbosacral spondylosis (ICD-10 - M47.817) In the future we can consider a bilateral lumbar facet medial branch nerve block. Jul, Chronic pain (ICD-10 - G89.29) Continue with current treatment plan. [employer] Other Evaluation + Plan note No data available for this section [facility] Evaluation noteNo InformationNort CourseWeaver Other History general Narrative - Reported* Type Description Date Medical History Left rotator cuff Medical History Asthma Medical History GERD Surgical History 6 left shoulder surgeries Surgical History Left rotator cuff, x5 Surgical History Left knee Surgical History Left knee, torn ACL and meniscu s Surgical History Gallbladder Surgical History Lap Cholecystectomy Surgical History nerve block Hospitalization History See Above [employer] Other Hospital Discharge instructions No data available for this section [facility] Progress note No data available for this section [facility] Summary Purpose Family History No Family History Records FoundNo Family History Records FoundNo Family History Records FoundNo Family History Records FoundNo Family History Records FoundNo Family History Records FoundNo Family History Records FoundNo Family History Records Found Advance Directives No Advanced Directives Records FoundNo Advanced Directives Records FoundNo Advanced Directives Records FoundNo Advanced Directives Records FoundNo Advanced Directives Records FoundNo Advanced Directives Records FoundNo Advanced Directives Records FoundNo Advanced Directives Records Found Additional Source Comments INFORMATION SOURCE (unrecogn ized section and content) DATE CREATED AUTHOR 03/22/2018 [facility] DATE CREATED AUTHOR AUTHOR'S ORGANIZ ATION 03/27/2018 [facility] DATE CREATED AUTHOR AUTHOR'S ORGANIZ ATION 03/27/2018 [facility] DATE CREATED AUTHOR AUTHOR'S ORGANIZ ATION 03/07/2019 [facility] DATE CREATED AUTHOR AUTHOR'S ORGANIZ ATION 07/30/2021 [facility] DATE CREATED AUTHOR AUTHOR'S ORGANIZ ATION 06/05/2022 [facility] DATE CREATED AUTHOR AUTHOR'S ORGANIZ ATION 04/24/2023 [place] DATE CREATED AUTHOR AUTHOR'S ORGANIZ ATION 04/27/2023 [facility] EPIC REASON FOR VISIT (unrecogniz ed section and content) SORE THROAT, EARACHE CONGEST IONRASH UNDER ARMS AND DOWN SIDESISABEL SI JOINT INJECTIONreschedule procedureINCREASE BACK PAIN (seen 2019) Patient Care team informatio n (unrecognized section and content) Personnel Name: GERALD SINGH DO Address: Address: [address] [place] [address] Personnel Name: GERALD SINGH DO Address: Address: [address] [place] [address] Personnel Name: GERALD SINGH DO Address: Address: [address] [place] [address] FOR RECORDS PERTAINING TO PATIENTS WHO ARE OR HAVE BEEN ENROLLED IN A CHEMICAL DEPENDENCY/SUBSTANCEABUSE PROGRAM, SOME INFORMATION MAY BE OMITTED. This clinical summary was aggregated from multiple sources. Caution should be exercised in using it in the provision of clinical care. This summary normalizes information from multiple sources, and as a consequence, information in this document may materially change the coding, format and clinical context of patient data. In addition, data may be omitted in some cases. CLINICAL DECISIONS SHOULD BE BASED ON THE PRIMARY CLINICAL RECORDS. [employer] [facility]. provides no warranty or guarantee of the accuracy or completeness of information in this document.
[2023-05-01 13:11] LABS: Age Gdln ACOG Testing Note (.); HPV Aptima Negative (Negative); IGP, Aptima HPV, rfx 16/18,45 Note (.)
== END 2023-04-27 22:27 | disposition home or self-care (01) ==
LOC: LAB 22:26
PROVIDERS: PCP Family Medicine; Visit Provider Physician Assistant
DX: Z01.419 Encounter for gynecological examination (general) (routine) without abnormal findings (principal)
CPT/HCPCS: 87624; G0145

== ENCOUNTER 2023-06-05 08:04 | Outpatient (OUT) | payer BC, SELFPAY ==
--- NOTE | 2023-06-05 08:07 | MM_ITS ---
Patient Name: COLIN MACIAS MR#: [id number] : 1970 Exam Date: 06/05/2023 Ordering Doctor: DR ORACIO SINGH D.O. RADIOLOGY REPORT PROCEDURE: MM TOMOSYNTHESIS SCREENING BI COMPARISON: MG MAMM SCREEN 3D ISABEL CAD, 06/04/2022. MG MAMM SCREEN 3D ISABEL CAD, 04/09/2021. MG MAMM SCREEN ISABEL W CAD, 03/07/2020. MG MAMM ISABEL SCRN W CAD DIG, 02/23/2014. INDICATIONS: Screening Calculator Name NCI Breast Cancer Risk Assessment Tool 5 Year Breast Cancer Risk 0.80% Lifetime Breast Cancer Risk 6.20% Personal Breast Cancer No Personal Ovarian Cancer No Treatments None Family Cancers Mother with ovarian cancer at age 54; Grandmother-paternal with kidney cancer at age 65. LOCATION: [facility] BREAST COMPOSITION: Heterogeneously dense,which may obscure small masses. FINDINGS: DIAGNOSTIC CATEGORY 2--BENIGN FINDING: RIGHT BREAST: No significant suspicious finding. No significant change has occurred. LEFT BREAST: No significant suspicious finding. Stable benign-appearing calcification upper outer quadrant. Stable small benign-appearing axillary tail lymph node. No significant change has occurred. RECOMMENDATIONS: ROUTINE MAMMOGRAM AND CLINICAL EVALUATION IN 12 MONTHS. PLEASE NOTE: A NORMAL MAMMOGRAM DOES NOT EXCLUDE THE POSSIBILITY OF BREAST CANCER. A CLINICALLY SUSPICIOUS PALPABLE LUMP SHOULD BE BIOPSIED. Dictated by: Anand Cooley M.D. on 06/05/2023 at 14:13 Approved by: Anand Cooley M.D. on 06/05/2023 at 14:16
--- OUTSIDE RECORDS SUMMARY | 2023-06-05 08:07 | XMS_ITS | CCD ---
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 make your symptoms worse. ? Follow a diet as recommended by your health care provider. This may involve avoiding foods and drinks such as: ? Coffee and tea, with or without caffeine. ? Drinks that contain alcohol. ? Energy drinks and sports drinks. ? Carbonated drinks or sodas. ? Chocolate and cocoa. ? Peppermint and mint flavorings. ? Garlic and onions. ? Horseradish. ? Spicy and acidic foods, including peppers, chili powder, yeboah powder, vinegar, hot sauces, and barbecue sauce. ? [place] fruit juices and citrus fruits, such as oranges, zaynab, and limes. ? Tomato-based foods, such as red sauce, chili, salsa, and pizza with red sauce. ? Fried and fatty foods, such as donuts, mongolian fries, potato chips, and high-fat dressings. ? High-fat meats, such as hot dogs and fatty cuts of red and white meats, such as rib eye steak, sausage, ham, and drake. ? High-fat dairy items, such as whole milk, butter, and cream cheese. Lifestyle ? Eat small, frequent meals instead of large meals. ? Avoid drinking large amounts of liquid with your meals. ? Avoid eating meals during the 2?3 hours before bedtime. ? Avoid lying down right after you eat. ? Do not exercise right after you eat. ? Do not use any products that contain nicotine or tobacco. These products include cigarettes, chewing tobacco, and vaping devices, such as e-cigarettes. If you need help quitting, ask your health care provider. General instructions ? Pay attention to any changes in your symptoms. Let your health care provider know about them. ? Wear loose-fitting clothing. Do not wear anything tight around your waist that causes pressure on your abdom (more content not included)... [facility] Reminderson 05-15-2023 Reminders - From: Sonido Zapien To: [facility] - Reminders/Recalls; Sent: 05/15/2023 16:50:36 EST Show up: 04/20/2026 16:50:00 EST Subject: Ambulatory Reminder Due Date/Time: 05/12/2026 16:50:00 EST Reminder/Recall Repeat colonoscopy in 3 years(2026) due to tubular adenoma [facility] Operative Reporton 01-24-202 4 Operative Report [id number]#2.00TIFF [facility] Outside Colonoscopyon 2023 Outside Colonoscopy [id number]#2.00TIFF [facility] Physician Orderon 05-12-2023 Physician Order [id number]#1.00TIFF [facility] Insurance Correspondenceon 0 05-06-2023 Insurance Correspondence [id number]#1.00TIFF [facility] Consent for Procedure/Surger yon 04-28-2023 Consent for Procedure/Surgery [id number]#1.00TIFF [facility] Gastroenterology Office/Clin ic Noteon 04-27-2023 Gastroenterology Office/Clinic Note Chief Complaint Reflux and abdominal pain. HPI Staff This is a 52 year old female who presents today for a sick call for complaints of acid reflux. Patient states that she stopped taking omeprazole. History of Present Illness Patient is a 52-year-old female who presents for further evaluation of acid reflux. Patient was previously evaluated 11/17/2022 and has history of H. pylori gastritis that was previously treated 04/2021 and had negative H. pylori stool antigen testing. Patient also with history of Schatzki's ring. Patient also with history of colon polyps. Previous colonoscopy 01/2020 revealed 3mm hyperplastic polyp removed from sigmoid, hemorrhoids. Previous EGD 01/2020 revealed mild concentric esophageal rings- dilated, small HH, normal gastric mucosa, normal duodenum, gastric body biopsy revealed mild chronic active inflammation, antral biopsy revealed active H. pylori, proximal and distal esophagus biopsies were normal. Review of outside record indicated patient was previously evaluated at [facility] 09/2022. Patient had CT A/P that showed wall [...] discharged home. Patient was again evaluated in [place] [facility] 10/15/22 for upper abdominal pain and was treated with GI cocktail. Labs 10/15/22 revealed normal WBC, normal H/H. Patient was advised per ED provider to take PPI and Carafate and discharged home. FH colon cancer: Denies. FH colon polyps- Denies. Patient reported during most recent visit with me that RLQ pain had improved and was occurring intermittently. She reported having 50% hard stools and 50% diarrhea. She also reported having epigastric pain that started 09/2022 and had resolved with omeprazole 20 mg twice daily. She also reported having dysphagia with solids off and on over the last 3 to 4 months that last occurred 3 weeks prior. Patient was ordered colonoscopy in 8 weeks from diverticulitis flare, patient also ordered CT abdomen/pelvis to evaluate for resolution of diverticulitis. Patient was also advised to start fiber supplementation daily. Patient was also ordered EGD to further evaluate upper abdominal pain. Previous CT abdomen/pelvis showed no acute process, no diverticulitis 12/01/2022. Review of record indicates patient had canceled her EGD/colonoscopy 11/2022. During today's visit, patient reports she has been experiencing acid reflux over the last 2-3 years that has worsened over the last 2 months, occurring daily. She explains when she eats or drinks, it feels like it gets stuck in her esophagus, occurring daily over the last 2 months. Is taking rolaids, mylanta, and tums daily for acid reflux. She explains she stopped taking omeprazole on her own 6 months ago. She was previously on omeprazole 20mg daily that did not help her acid reflux. Reports she was previously on omeprazole for years. Is having 1 formed BM daily. Denies black/bloody stools, nausea/vomiting, fevers/chills, and denies having any other GI complaints. Review of Systems PHQ Score Initial Depression Screen Score: 0 SCORE ROS - Provider Constitutional: no fever, no chills. Skin: no Jaundice. ENMT: Yes dysphagia and acid reflux. Respiratory: no shortness of breath. Cardiovascular: no chest pain. Gastrointestinal: no nausea, no vomiting, no diarrhea, no GI bleeding. Physical Exam Vitals & Measurements T: 36.4 ?C(Temporal Artery) HR: 63(Peripheral) BP: 126/78 HT: 63 in HT: 160 cm WT: 74.2 kg WT: 163.24 lb BMI: 28.98 General: Well developed, well nourished, in no acute distress Head: Normocephalic/atraumatic Lungs: Normal respiratory effort and clear to auscultation Cardio: Regular rate and rhythm, normal S1 and S2, no murmur, no rub Abdomen: Soft, non-distended, non-tender. Normoactive bowel sounds present in all 4 abdominal quadrants, bilaterally. Mental Status: Alert and oriented x3. Normal mood and affect Assessment/Plan 1. Acid reflux (K21.9: Gastro-esophageal reflux disease without esophagitis) Acid reflux daily and worse over the last 2-3 months. Previous EGD 01/2020 revealed mild concentric esophageal rings- dilated, small HH, normal gastric mucosa, normal duodenum, gastric body biopsy revealed mild chronic active inflammation, antral biopsy revealed active H. pylori, proximal and distal esophagus biopsies were normal. Ordered EGD to evaluate for PUD, H. pylori infection. Ordered Nexium 40mg daily. Ordered: esomeprazole, 40 mg = 1 cap(s), Oral, Daily, X 90 day(s), # 90 cap(s), Refills(s) 0, Pharmacy: [facility], 160, cm, 04/27/23 12:36:00 EST, Height/Length Dosing, 74.2, kg, 04/27/23 12:36:00 EST, Weight Dosing EGD Endoscopy (Hospital Procedure) 2. D (more content not included)... [facility] Comment on above: Result Comment: Elec tronically Signed By: Anna Hassan CNP\.br\Date and Time Signed: 04/27/23 12:52 EST Patient Educationon 04-27-19 Patient Education Gastroenterology Food Choices for Gastroesophageal Reflux Disease, Adult When you have gastroesophageal reflux disease (GERD), the foods you eat and your eating habits are very important. Choosing the right foods can help ease the discomfort of GERD. Consider working with a dietitian to help you make healthy food choices. What are tips for following this plan? Reading food labels ? Look for foods that are low in saturated fat. Foods that have less than 5% of daily value (DV) of fat and 0 g of trans fats may help with your symptoms. Cooking ? Cook foods using methods other than frying. This may include baking, steaming, grilling, or broiling. These are all methods that do not need a lot of fat for cooking. ? To add flavor, try to use herbs that are low in spice and acidity. Meal planning ? Choose healthy foods that are low in fat, such as fruits, vegetables, whole grains, low-fat dairy products, lean meats, fish, and poultry. ? Eat frequent, small meals instead of three large meals each day. Eat your meals slowly, in a relaxed setting. Avoid bending over or lying down until 2?3 hours after eating. ? Limit high-fat foods such as fatty meats or fried foods. ? Limit your intake of fatty foods, such as oils, butter, and shortening. ? Avoid the following as told by your health care provider: ? Foods that cause symptoms. These may be different for different people. Keep a food diary to keep track of foods that cause symptoms. ? Alcohol. ? Drinking large amounts of liquid with meals. ? Eating meals during the 2?3 hours before bed. Lifestyle ? Maintain a healthy weight. Ask your health care provider what weight is healthy for you. If you need to lose weight, work with your health care provider to do so safely. ? Exercise for at least 30 minutes on 5 or more days each week, or as told by your health care provider. ? Avoid wearing clothes that fit tightly around your waist and chest. ? Do not use any products that contain nicotine or tobacco. These products include cigarettes, chewing tobacco, and vaping devices, such as e-cigarettes. If you need help quitting, ask your health care provider. ? Sleep with the head of your bed raised. Use a wedge under the mattress or blocks under the bed frame to raise the head of the bed. ? Chew sugar-free gum after mealtimes. What foods should I eat? Eat a healthy, well-balanced diet of fruits, vegetables, whole grains, low-fat dairy products, lean meats, fish, and poultry. Each person is different. Foods that may trigger symptoms in one person may not trigger any symptoms in another person. Work with your health care provider to identify foods that are safe for you. The items listed above may not be a complete list of recommended foods and beverages. Contact a dietitian for more information. What foods should I avoid? Limiting some of these foods may help manage the symptoms of GERD. Everyone is different. Consult a dietitian or your health care provider to help you identify the exact foods to avoid, if any. Fruits Any fruits prepared with added fat. Any fruits that cause symptoms. For some people this may include citrus fruits, such as oranges, grapefruit, pineapple, and zaynab. Vegetables Deep-fried vegetables. [place] fries. Any vegetables prepared with added fat. Any vegetables that cause symptoms. For some people, this may include tomatoes and tomato products, chili peppers, onions and garlic, and horseradish. Grains Pastries or quick breads with added fat. Meats and other proteins High-fat meats, such as fatty beef or pork, hot dogs, ribs, ham, sausage, salami, and drake. Fried meat or protein, including fried fish and fried chicken. Nuts and nut butters, in large amounts. Dairy Whole milk and chocolate milk. Sour cream. Cream. Ice cream. Cream cheese. Milkshakes. Fats and oils Butter. Margarine. Shortening. Ghee. Beverages Coffee and tea, with or without caffeine. Carbonated beverages. Sodas. Energy drinks. Fruit juice made with acidic fruits, such as orange or grapefruit. Tomato juice. Alcoholic drinks. Sweets and desserts Chocolate and cocoa. Donuts. Seasonings and condiments Pepper. Peppermint and spearmint. Added salt. Any condiments, herbs, or seasonings that cause symptoms. For some people, this may include yeboah, hot sauce, or vinegar-based salad dressings. The items listed above may not be a complete list of foods and beverages to avoid. Contact a dietitian for more information. Questions to ask your health care provider Diet and lifestyle changes are usually the first steps that are taken to manage symptoms of GERD. If diet and lifestyle changes do not improve your symptoms, talk with your health care provider about taking medicines. Where to find more information ? [employer]: aboutgerd.org Summary ? When you have gastroesophageal reflux di (more content not included)... [facility] Quick Strepon 02-18-2023 S. pyogenes Org specific cx Ql (Throat) Negative [employer] Other Quick Strep [facility] [employer] Other CT Abdomen/Pelvis w/ Contras ton 12-03-2022 [...] Oral contrast amount in ml's: 900 [facility] Consent for Treatmenton 11-18 Consent for Treatment [id number]#1.00CD:127 [facility] Insurance Correspondenceon 0 11-24-2022 Insurance Correspondence [id number]#1.00CD:127 [facility] Consent for Procedure/Surger yon 11-18-2022 Consent for Procedure/Surgery [id number]#1.00CD:127 [facility] ED Note-Physicianon 11-18-19 ED Note-Physician [id number]#1.00CD:127 [facility] ED Note-Physician [id number]#1.00CD:127 [facility] Gastroenterology Office/Clin ic Noteon 11-17-2022 Gastroenterology Office/Clinic Note Chief Complaint Abdominal pain and diarrhea. HPI Staff This is a 52 year old female who presents today for a follow up from [facility] ER on 10/08/22 and 10/15/22 , for [...] record indicated patient was previously evaluated at [facility] 10/09/2019. Patient had CT A/P that [...] discharged home. Patient was again evaluated in [place] ED 10/15/22 for upper abdominal pain and was treated with GI cocktail. Labs 10/15/22 revealed normal WBC, normal H/H. Patient was advised per ED provider to take PPI and Carafate and discharged home. colon cancer: Denies. colon polyps- Denies. During today's visit, patient [...] record indicated patient was previously evaluated at [facility] 10/09/2019. Patient had CT A/P that [...] record indicated patient was previously evaluated at [facility] 10/09/2019. Patient had CT A/P that [...] 4. Irre (more content not included)... [facility] Comment on above: Result Comment: Elec tronically Signed By: Anna Hassan CNP\.liborio\Date and Time Signed: 11/17/22 16:16 EDT Lab Reportson 11-17-2022 Lab Reports [id number]#1.00CD:127 [facility] Patient Educationon 11-18-19 Patient Education Gastroenterology Diverticulitis Diverticulitis is infection [...] at home. Treatment may include: ? Taking icmg-wim-hcgqaic pain medicines. ? Following a clear liquid [...] these instructions at home: Medicines ? Take vyka-jhj-kygmnjv and prescription medicines only as told by [...] diet lavell (more content not included)... [facility] RAD - CT Reporton 11-17-2022 RAD - CT Report [id number]#1.00CD:127 [facility] CBC AUTO DIFFon 06-04-2022 BASO # 0.0 103/ul Normal 0.0-0.1 [facility] Comment on above: Performed By: #### C BC #### [facility] [address] [address] [address] Jacob Mcdaniel Basophils/100 WBC (Bld) 0.8 % Normal 0.2-2.0 [facility] Comment on above: Performed By: #### C BC #### [facility] [address] [place] [address] Dr. Jacob Mcdaniel EO # 0.2 103/ul Normal 0.0-0.7 [facility] Comment on above: Performed By: #### C BC #### [facility] [address] [place] [address] Dr. Jacob Mcdaniel Eosinophils/100 WBC (Bld) 3.0 % Normal 0.9-7.0 [facility] Comment on above: Performed By: #### C BC #### [facility] [address] [place] [address] Dr. Jacob Mcdaniel Erythrocyte distribution width (RBC) [Ratio] 12.1 % Normal 11.0-15.0 [facility] Comment on above: Performed By: #### C BC #### [facility] [address] [place] [address] Dr. Jacob Mcdaniel Hematocrit (Bld) [Volume fraction] 42.5 % Normal 36.0-48.0 [facility] Comment on above: Performed By: #### C BC #### [facility] [address] [place] [address] Dr. Jacob Mcdaniel Hemoglobin (Bld) [Mass/Vol] 14.7 g/dL Normal 12.0-16.0 [facility] Comment on above: Performed By: #### C BC #### [facility] [address] [place] [address] Dr. Jacob Mcdaniel IG # 0.02 10e3/ul Normal 0.00-0.03 [facility] Comment on above: Performed By: #### C BC #### [facility] [address] [place] [address] Dr. Jacob Mcdaniel IG % 0.4 % Normal 0.0-0.5 [facility] Comment on above: Performed By: #### C BC #### [facility] [address] [place] [address] Dr. Jacob Mcdaniel LYMPH # 1.7 103/ul Normal 1.2-3.8 [facility] Comment on above: Performed By: #### C BC #### [facility] [address] [place] [address] Dr. Jacob Mcdaniel Lymphocytes/100 WBC (Bld) 31.8 % Normal 20.5-60.0 [facility] Comment on above: Performed By: #### C BC #### [facility] [address] [place] [address] Dr. Jacob Mcdaniel MANUAL DIFF REQ NO Normal [facility] Comment on above: Performed By: #### C BC #### [facility] [address] [place] [address] Dr. Jacob Mcdaniel MCH (RBC) [Entitic mass] 30.1 pg Normal 26.7-34.0 [facility] Comment on above: Performed By: #### C BC #### [facility] [address] [place] [address] Dr. Jacob Mcdaniel MCHC (RBC) [Mass/Vol] 34.6 g/dL Normal 29.9-35.2 [facility] Comment on above: Performed By: #### C BC #### [facility] [address] [place] [address] Dr. Jacob Mcdaniel MCV (RBC) [Entitic vol] 86.9 fL Normal 81.0-99.0 [facility] Comment on above: Performed By: #### C BC #### [facility] [address] [place] [address] Dr. Jacob Mcdaniel MONO # 0.3 103/ul Normal 0.3-0.8 [facility] Comment on above: Performed By: #### C BC #### [facility] [address] [place] [address] Dr. Jacob Mcdaniel Monocytes/100 WBC (Bld) 6.2 % Normal 1.7-12.0 [facility] Comment on above: Performed By: #### C BC #### [facility] [address] [place] [address] Dr. Jacob Mcdaniel NEUT # 3.1 103/ul Normal 1.4-6.5 [facility] Comment on above: Performed By: #### C BC #### [facility] [address] [place] [address] Dr. Jacob Mcdaniel Neutrophils/100 WBC (Bld) 57.8 % Normal 43.0-75.0 [facility] Comment on above: Performed By: #### C BC #### [facility] [address] [place] [address] Dr. Jacob Mcdaniel Platelet mean volume (Bld) [Entitic vol] 8.9 fL Critically low 9.5-13.5 [facility] Comment on above: Performed By: #### C BC #### [facility] [address] [place] [address] Dr. Jacob Mcdaniel PLT 263 103/ul Normal 150-450 [facility] Comment on above: Performed By: #### C BC #### [facility] [address] [place] [address] Dr. Jacob Mcdaniel RBC 4.89 106/ul Normal 4.20-5.40 [facility] Comment on above: Performed By: #### C BC #### [facility] [address] [place] [address] Dr. Jacob Mcdaniel WBC 5.3 103/ul Normal 4.0-11.0 [facility] Comment on above: Performed By: #### C BC #### [facility] [address] [place] [address] Dr. Jacob Mcdaniel MG MAMM SCREEN 3D ISABEL CADon 06-04-2022 MG MAMM SCREEN 3D ISABEL CAD Patient: ZITIERA TINAJERO Exam Date: 06/04/2022 : 1970 Gender:F Ordering : DR YANELY WEINER . Admission #: [id number] Family : DR GERALD TAVARES D.O. Order #: [id number] CLICK HERE TO VIEW EXAM RADIOLOGY REPORT [...] kidney cancer at age 64. LOCATION: [facility] BREAST COMPOSITION: Heterogeneously dense,which may obscure [...] LUMP SHOULD BE BIOPSIED. Dictated by: Lizbeth Tang MD on 06/04/2022 at 14:00 Approved by: Lizbeth Tang MD on 06/04/2022 at 14:03 Normal [facility] PROF 14(COMP METB)on 023 Albumin [Mass/Vol] 4.0 g/dL Normal 3.4-5.0 [facility] Comment on above: Performed By: #### T SH, CMP #### [facility] [address] [address] [address] Jacob Mcdaniel Albumin/Globulin [Mass ratio] 1.2 {ratio} Normal [facility] Comment on above: Performed By: #### T MACKENZIE, CMP #### [facility] [address] [place], [place] [address] Dr. Jacob Mcdaniel ALP [Catalytic activity/Vol] 69 U/L Normal 46-116 [facility] Comment on above: Performed By: #### T MACKENZIE, CMP #### [facility] [address] [address] [address] Jacob Mcdaniel ALT [Catalytic activity/Vol] 40 U/L Normal 14-59 [facility] Comment on above: Performed By: #### T SH, CMP #### [facility] [address] [address] [address] Jacob Mcdaniel Anion gap [Moles/Vol] 12.1 mmol/L Normal [facility] Comment on above: Performed By: #### T SH, CMP #### [facility] [address] [address] [address] Jacob Mcdaniel AST [Catalytic activity/Vol] 21 U/L Normal 15-37 [facility] Comment on above: Performed By: #### T MACKENZIE, CMP #### [facility] [address] [place] [address] Dr. Jacob Mcdaniel Bilirubin [Mass/Vol] 0.8 mg/dL Normal 0.2-1.0 [facility] Comment on above: Performed By: #### T MACKENZIE, CMP #### [facility] [address] [address] [address] Jacob Mcdaniel Calcium [Mass/Vol] 9.5 mg/dL Normal 8.5-10.1 [facility] Comment on above: Performed By: #### T MACKENZIE, CMP #### [facility] [address] [place] [address] Dr. Jacob Mcdaniel Chloride [Moles/Vol] 103 mmol/L Normal 98-107 [facility] Comment on above: Performed By: #### T MACKENZIE, CMP #### [facility] [address] [address] [address] Jacob Mcdaniel CO2 [Moles/Vol] 31.9 mmol/L Normal 21.0-32.0 [facility] Comment on above: Performed By: #### T MACKENZIE, CMP #### [facility] [address] [place] [address] Dr. Jacob Mcdaniel Creatinine [Mass/Vol] 0.84 mg/dL Normal 0.55-1.02 [facility] Comment on above: Performed By: #### T MACKENZIE, CMP #### [facility] [address] [address] [address] Jacob Mcdaniel EGFR-AF VINCENTIAN >60 Normal >=60 [facility] Comment on above: Performed By: #### T SH, CMP #### [facility] [address] [address] [address] Jacob Mcdaniel EGFR-NON AF VINCENTIAN >60 Normal >=60 [facility] Comment on above: Performed By: #### T SH, CMP #### [facility] [address] [address] [address] Jacob Mcdaniel Globulin (S) [Mass/Vol] 3.4 g/dL Normal [facility] Comment on above: Performed By: #### T SH, CMP #### [facility] [address] [place] [address] Dr. Jacob Mcdaniel Glucose [Mass/Vol] 105 mg/dL Normal 74-106 [facility] Comment on above: Performed By: #### T SH, CMP #### [facility] [address] [place] [address] Dr. Jacob Mcdaniel Potassium [Moles/Vol] 4.0 mmol/L Normal 3.5-5.1 [facility] Comment on above: Performed By: #### T SH, CMP #### [facility] [address] [place] [address] Dr. Jacob Mcdaniel Protein [Mass/Vol] 7.4 g/dL Normal 6.4-8.2 [facility] Comment on above: Performed By: #### T SH, CMP #### [facility] [address] [place] [address] Dr. Jacob Mcdaniel Sodium [Moles/Vol] 143 mmol/L Normal 136-145 [facility] Comment on above: Performed By: #### T SH, CMP #### [facility] [address] [place] [address] Dr. Jacob Mcdaniel Urea nitrogen [Mass/Vol] 12.0 mg/dL Normal 7.0-18.0 [facility] Comment on above: Performed By: #### T SH, CMP #### [facility] [address] [place], [place] [address] Dr. Jacob Mcdaniel Urea nitrogen/Creatinin e [Mass ratio] 14.3 mg/mg Normal [facility] Comment on above: Performed By: #### T MACKENZIE, CMP #### [facility] [address] [place], [place] [address] Dr. Jacob Mcdaniel TSHon 06-04-2022 TSH 0.619 uIU/mL Normal 0.358-3.740 [facility] Comment on above: Performed By: #### T MACKENZIE, CMP ####[facility] [address] [place], [place] [address]TyDr. Jacob Mcdaniel VIT B12 AND FOLATEon 023 Cobalamin (Vitamin B12) [Mass/Vol] 396.0 pg/mL Normal 193.0-986.0 [facility] Comment on above: Performed By: #### B 12FOL ####[facility] [address] [place] [address]Dr. Jacob Mcdaniel FOLATE 9.30 ng/mL Normal 8.60-58.90 [facility] Comment on above: Performed By: #### B 12FOL ####[facility] [address] [place] [address]Dr. Jacob Mcdaniel XR DEXA BONE DENSITYon 06-04 XR [...] by: FRANK MONROY Date: 2022-06-04 13:14 Normal [facility] XR CSPINE 2_3 VIEWSon 2022 XR [...] significant at C6-C7 Electronically authenticated by: LIZBETH TANG Date: 2022-05-30 13:58 Normal [facility] PAP ACOG PANEL 2: 30 to 65on 01-29-2022 . . Normal [facility] Comment on above: Result Comment: Perf ormed at: BA Performed By: #### 4 [id number] #### [facility] [address] [place] [address] Dr. Jacob Mcdaniel Age Gdln ACOG Testing - Normal [facility] Comment on above: Performed By: #### 4 [id number] #### [facility] [address] [place] [address] [address] Jacob Mcdaniel DIAGNOSIS: Comment Normal [facility] Comment on above: Result Comment: NEGA TIVE FOR INTRAEPITHELIAL LESION OR MALIGNANCY. CELLULAR CHANGES ASSOCIATED WITH ATROPHY AND INFLAMMATION ARE PRESENT. Performed at: BA Performed By: #### 4 [id number] #### [facility] [address] [place] [address] Dr. Jacob Mcdaniel HPV Aptima Negative Normal Negative [facility] Comment on above: Result Comment: This nucleic acid amplification test detects fourteen high-risk HPV types (16,18,31,33,35,39,45,51,52,56,58,59,66,68) without differentiation. Performed at: =G Performed By: #### 4 [id number] #### [facility] [address] [place] [address] Dr. Jacob Mcdaniel Methodology: Comment Normal [facility] Comment on above: Result Comment: This liquid based ThinPrep(R) pap test was screened with the use of an image guided system. Performed at: WB Performed By: #### 4 [id number] #### [facility] [address] [place] [address] Dr. Jacob Mcdaniel Note: Comment Normal [facility] Comment on above: Result Comment: The Pap smear is a screening test designed to aid in the detection of premalignant and malignant conditions of the uterine cervix. It is not a diagnostic procedure and should not be used as the sole means of detecting cervical cancer. Both false-positive and false-negative reports do occur. . Performed at: WB Performed By: #### 4 [id number] #### [facility] [address] [place] [address] Dr. Jacob Mcdaniel Performed by: Comment Normal [facility] Comment on above: Result Comment: Codey Lorenzo, Chairman & Ceo (ASCP) Performed at: BA Performed By: #### 4 [id number] #### [facility] [address] [place] [address] Dr. Jacob Mcdaniel Specimen adequacy: Comment Normal [facility] Comment on above: Result Comment: Sati sfactory for evaluation. Endocervical and/or squamous metaplastic cells (endocervical component) are present. Performed at: BA Performed By: #### 4 [id number] #### [facility] [address] [place] [address] Dr. Jacob Mcdaniel AMYLASEon 09-25-2021 Amylase [Catalytic activity/Vol] 40 U/L Normal 25-115 [facility] Comment on above: Performed By: #### C MP, YOLIE, LIPA ####[facility] [address] [place] [address]Dr. Jacob Mcdaniel CBC AUTO DIFFon 09-25-2021 BASO # 0.0 103/ul Normal 0.0-0.1 [facility] Comment on above: Performed By: #### C BC ####[facility] [address] [place] [address]Dr. Jacob Mcdaniel Basophils/100 WBC (Bld) 0.6 % Normal 0.2-2.0 [facility] Comment on above: Performed By: #### C BC ####[facility] [address] [place] [address]Dr. Jacob Mcdaniel EO # 0.1 103/ul Normal 0.0-0.7 [facility] Comment on above: Performed By: #### C BC ####[facility] [address] [place] [address]Dr. Jacob Mcdaniel Eosinophils/100 WBC (Bld) 1.5 % Normal 0.9-7.0 [facility] Comment on above: Performed By: #### C BC ####[facility] [address] [place], [place] [address]Dr. Jacob Mcdaniel Erythrocyte distribution width (RBC) [Ratio] 12.2 % Normal 11.0-15.0 [facility] Comment on above: Performed By: #### C BC ####[facility] [address] [place], [place] [address]Dr. Jacob Mcdaniel Hematocrit (Bld) [Volume fraction] 41.6 % Normal 36.0-48.0 [facility] Comment on above: Performed By: #### C BC ####[facility] [address] [place], [place] [address]Dr. Jacob Mcdaniel Hemoglobin (Bld) [Mass/Vol] 13.8 g/dL Normal 12.0-16.0 [facility] Comment on above: Performed By: #### C BC ####[facility] [address] [place], [place] [address]Dr. Jacob Mcdaniel IG # 0.01 10e3/ul Normal 0.00-0.03 [facility] Comment on above: Performed By: #### C BC ####[facility] [address] [place], [place] [address]Dr. Jacob Mcdaniel IG % 0.1 % Normal 0.0-0.5 [facility] Comment on above: Performed By: #### C BC ####[facility] [address] [place], [place] [address]Dr. Jacob Mcdaniel LYMPH # 2.8 103/ul Normal 1.2-3.8 [facility] Comment on above: Performed By: #### C BC ####[facility] [address] [place] [address]Dr. Jacob Jonas Lymphocytes/100 WBC (Bld) 40.1 % Normal 20.5-60.0 [facility] Comment on above: Performed By: #### C BC ####[facility] [address] [place] [address]Dr. Jacob Jonas MANUAL DIFF REQ NO Normal [facility] Comment on above: Performed By: #### C BC ####[facility] [address] [place] [address]Dr. Jacob Jonas MCH (RBC) [Entitic mass] 30.1 pg Normal 26.7-34.0 [facility] Comment on above: Performed By: #### C BC ####[facility] [address] [place] [address]Dr. Jacob Jonas MCHC (RBC) [Mass/Vol] 33.2 g/dL Normal 29.9-35.2 [facility] Comment on above: Performed By: #### C BC ####[facility] [address] [place] [address]Dr. Jacob Jonas MCV (RBC) [Entitic vol] 90.6 fL Normal 81.0-99.0 [facility] Comment on above: Performed By: #### C BC ####[facility] [address] [place], [place] [address]Dr. Mitastar Jonas MONO # 0.5 103/ul Normal 0.3-0.8 [facility] Comment on above: Performed By: #### C BC ####[facility] [address] [place] [address]Dr. Mitastar Mcdaniel Monocytes/100 WBC (Bld) 6.9 % Normal 1.7-12.0 [facility] Comment on above: Performed By: #### C BC ####[facility] [address] [place], [place] [address]Dr. Jacob Mcdaniel NEUT # 3.5 103/ul Normal 1.4-6.5 [facility] Comment on above: Performed By: #### C BC ####[facility] [address] [place], [place] [address]Yb. Jacob Mcdaniel Neutrophils/100 WBC (Bld) 50.8 % Normal 43.0-75.0 [facility] Comment on above: Performed By: #### C BC ####[facility] [address] [place] [address]Dr. Jacob Mcdaniel Platelet mean volume (Bld) [Entitic vol] 9.1 fL Critically low 9.5-13.5 [facility] Comment on above: Performed By: #### C BC ####[facility] [address] [place], [place] [address]Wn. Jacob Mcdaniel PLT 279 103/ul Normal 150-450 [facility] Comment on above: Performed By: #### C BC ####[facility] [address] [place] [address]Dr. Jacob Mcdaniel RBC 4.59 106/ul Normal 4.20-5.40 [facility] Comment on above: Performed By: #### C BC ####[facility] [address] [place] [address]Dr. Jacob Mcdaniel WBC 6.9 103/ul Normal 4.0-11.0 [facility] Comment on above: Performed By: #### C BC ####[facility] [address] [place] [address]Dr. Jacob Mcdaniel CT ABD/PELVIS WO CONon 09-25 [...] left kidney stone. Electronically authenticated by: PATTI LOPEZ Date: 2021-09-25 18:01 Normal [facility] CULTURE URINEon 09-25-2021 CULTURE URINE Culture Observations : LIGHT GROWTH OF MIXED GENITAL BRANDT. NO POTENTIAL PATHOGENS SEEN. Normal [facility] Comment on above: Performed By: #### U RCX ####[facility] [address] [place], [place] [address]Fp. Mitastar Mcdaniel Covid-19 PCR (CVDTB)on SARS-CoV-2 (COVID-19) RNA MATT+probe Ql (Unsp spec) Not detected Normal NOT DETECTED [facility] Comment on above: Result Comment: When [...] for this test is supported by the [place] [employer] and Human Service's declaration that [...] longer be used). Performed By: #### C VDTB ####[facility] [address] [place] [address]Dr. Jacob Mcdaniel ER URINE PROFILEon 2 Bilirubin Ql (U) Negative Normal NEGATIVE [facility] Comment on above: Performed By: #### E RUR, PREGU, UMICRO #### [facility] [address] [place] [address] [address] Jacob Mcdaniel Clarity (U) CLEAR Normal CLEAR [facility] Comment on above: Performed By: #### E RUR, PREGU, UMICRO #### [facility] [address] [place] [address] Dr. Jacob Mcdaniel Color (U) LT. YELLOW Normal YELLOW [facility] Comment on above: Performed By: #### E RUR, PREGU, UMICRO #### [facility] [address] [place] [address] [address] Jacob RAGLAND A micrscopic examina tion will be performed if indicated. Normal [facility] Comment on above: Performed By: #### E RUR, PREGU, UMICRO #### [facility] [address] [place] [address] [address] Jacob Mcdaniel Glucose Ql (U) Negative Normal NEGATIVE [facility] Comment on above: Performed By: #### E RUR, PREGU, UMICRO #### [facility] [address] [place] [address] [address] Jacob Mcdaniel Hemoglobin Ql (U) Negative Normal NEGATIVE [facility] Comment on above: Performed By: #### E RUR, PREGU, UMICRO #### [facility] [address] [place] [address] Dr. Jacob Mcdaniel Ketones Ql (U) Negative Normal NEGATIVE [facility] Comment on above: Performed By: #### E RUR, PREGU, UMICRO #### [facility] [address] [place] [address] [address] Jacob Mcdaniel LEUKOCYTES MODERATE Abnormal NEGATIVE [facility] Comment on above: Performed By: #### E RUR, PREGU, UMICRO #### [facility] [address] [place] [address] [address] Jacob Mcdaniel Nitrite Ql (U) Negative Normal NEGATIVE [facility] Comment on above: Performed By: #### E RUR, PREGU, UMICRO #### [facility] [address] [place] [address] [address] Jacob Mcdaniel pH (U) 7.0 [pH] Normal 5-9 [facility] Comment on above: Performed By: #### Brett RUR, PREGU, UMICRO #### [facility] [address] [place] [address] Dr. Jacob Mcdaniel SPEC GRAVITY 1.010 Normal 1.005-<=1.[address] [place] [address] Comment on above: Performed By: #### Brett SHAH PREGU, UMICRO #### [facility] [address] [place] [address] [address] Jacob Mcdaniel UA PROTEIN Negative Normal NEGATIVE/ TRACE [facility] Comment on above: Performed By: #### Brett PIÑAR, PREGU, UMICRO #### [facility] [address] [place] [address] [address] Jacob Mcdaniel UR MICRO IND INDICATED Normal [facility] Comment on above: Performed By: #### E RUR, PREGU, UMICRO #### [facility] [address] [place] [address] [address] Jacob Mcdaniel Urobilinogen Qn (U) 0.2 {Tessy'U}/dL Normal 0.2 - 1.0 [facility] Comment on above: Performed By: #### E RUR, PREGU, UMICRO #### [facility] [address] [place] [address] Dr. Jacob Mcdaniel LIPASEon 09-25-2021 Lipase [Catalytic activity/Vol] 100.0 U/L Normal 73.0-393.0 [facility] Comment on above: Performed By: #### C MP, YOLIE, LIPA ####[facility] [address] [place] [address]Dr. Jacob Mcdaniel URon 09-25-2021 , QUAL Negative Normal NEGATIVE [facility] Comment on above: Performed By: #### E RUR, PREGU, UMICRO #### [facility] [address] [place] [address] [address] Jacob Mcdaniel PROF 14(COMP METB)on 022 Albumin [Mass/Vol] 3.8 g/dL Normal 3.4-5.0 [facility] Comment on above: Performed By: #### C MP, YOLIE, LIPA ####[facility] [address] [place] [address]Dr. Jacob Mcdaniel Albumin/Globulin [Mass ratio] 1.1 {ratio} Normal [facility] Comment on above: Performed By: #### C MP, YOLIE, LIPA ####[facility] [address] [place] [address]Dr. Jacob Mcdaniel ALP [Catalytic activity/Vol] 76 U/L Normal 46-116 [facility] Comment on above: Performed By: #### C MP, YOLIE, LIPA ####[facility] [address] [place] [address]Dr. Jacob Mcdaniel ALT [Catalytic activity/Vol] 43 U/L Normal 14-59 [facility] Comment on above: Performed By: #### C MP, YOLIE, LIPA ####[facility] [address] [place] [address]Dr. Jacob Mcdaniel Anion gap [Moles/Vol] 11.9 mmol/L Normal [facility] Comment on above: Performed By: #### C MP, YOLIE, LIPA ####[facility] [address] [place] [address]Dr. Jacob Mcdaniel AST [Catalytic activity/Vol] 24 U/L Normal 15-37 [facility] Comment on above: Performed By: #### C MP, YOLIE, LIPA ####[facility] [address] [place] [address]Dr. Jacob Mcdaniel Bilirubin [Mass/Vol] 0.3 mg/dL Normal 0.2-1.0 [facility] Comment on above: Performed By: #### C MP, YOLIE, LIPA ####[facility] [address] [place] [address]Dr. Jacob Mcdaniel Calcium [Mass/Vol] 8.6 mg/dL Normal 8.5-10.1 [facility] Comment on above: Performed By: #### C MP, YOLIE, LIPA ####[facility] [address] [place], [place] [address]Dr. Jacob Mcdaniel Chloride [Moles/Vol] 104 mmol/L Normal 98-107 [facility] Comment on above: Performed By: #### C MP, YOLIE, LIPA ####[facility] [address] [place], [place] [address]Dr. Jacob Mcdaniel CO2 [Moles/Vol] 27.7 mmol/L Normal 21.0-32.0 [facility] Comment on above: Performed By: #### C MP, YOLIE, LIPA ####[facility] [address] [place], [place] [address]Dr. Jacob Mcdaniel Creatinine [Mass/Vol] 0.89 mg/dL Normal 0.55-1.02 [facility] Comment on above: Performed By: #### C MP, YOLIE, LIPA ####[facility] [address] [place], [place] [address]Dr. Jacob Mcdaniel EGFR-AF VINCENTIAN >60 Normal >=60 [facility] Comment on above: Performed By: #### C MP, YOLIE, LIPA ####[facility] [address] [place], [place] [address]Dr. Jacob Mcdaniel EGFR-NON AF VINCENTIAN >60 Normal >=60 [facility] Comment on above: Performed By: #### C MP, YOLIE, LIPA ####[facility] [address] [place], [place] [address]Dr. Jacob Mcdaniel Globulin (S) [Mass/Vol] 3.5 g/dL Normal [facility] Comment on above: Performed By: #### C YOLIE FAN LIPA ####[facility] [address] [place] [address]Dr. Jacob Mcdaniel Glucose [Mass/Vol] 91 mg/dL Normal 74-106 [facility] Comment on above: Performed By: #### C YOLIE FAN LIPA ####[facility] [address] [place] [address]Dr. Jacob Mcdaniel Potassium [Moles/Vol] 3.6 mmol/L Normal 3.5-5.1 [facility] Comment on above: Performed By: #### C YOLIE FAN LIPA ####[facility] [address] [place] [address]Dr. Jacob Mcdaniel Protein [Mass/Vol] 7.3 g/dL Normal 6.4-8.2 [facility] Comment on above: Performed By: #### C YOLIE FAN LIPA ####[facility] [address] [place] [address]Dr. Jacob Mcdaniel Sodium [Moles/Vol] 140 mmol/L Normal 136-145 [facility] Comment on above: Performed By: #### C YOLIE FAN LIPA ####[facility] [address] [place] [address]Dr. Jacob Mcdaniel Urea nitrogen [Mass/Vol] 14.0 mg/dL Normal 7.0-18.0 [facility] Comment on above: Performed By: #### C YOLIE FAN LIPA ####[facility] [address] [place] [address]Dr. Jacob Mcdaniel Urea nitrogen/Creatinin e [Mass ratio] 15.7 mg/mg Normal [facility] Comment on above: Performed By: #### C YOLIE FAN LIPA ####[facility] [address] [place] [address]Dr. Jacob Mcdaniel URINE MICROSCOPIC ONLYon BACTERIA SMALL Abnormal NONE SEEN [facility] Comment on above: Performed By: #### E RUR, PREGU, UMICRO #### [facility] [address] [place] [address] [address] Jacob Mcdaniel Bacteria identified Cx Nom (U) INDICATED Normal [facility] Comment on above: Performed By: #### E RUR, PREGU, UMICRO #### [facility] [address] [place] [address] [address] Jacob Mcdaniel CAST NONE SEEN Normal NONE SEEN [facility] Comment on above: Performed By: #### E PABLO PREGU, UMICRO #### [facility] [address] [place] [address] [address] Jacob Mcdaniel Crystals LM Nom (Urine sed) NONE SEEN Normal NONE SEEN [facility] Comment on above: Performed By: #### E AYANAR, PREGU, UMICRO #### [facility] [address] [place] [address] [address] Jacob Mcdaniel Epithelial cells LM Ql (Urine sed) FEW Abnormal NONE SEEN /RARE [facility] Comment on above: Performed By: #### Brett SHAH PREGU, UMICRO #### [facility] [address] [place] [address] [address] Jacob Mcdaniel MUCOUS NONE SEEN Normal NONE SEEN [facility] Comment on above: Performed By: #### Brett SHAH PREGU, UMICRO #### [facility] [address] [place] [address] [address] Jacob Mcdaniel RBC NONE SEEN Abnormal 0-2 [facility] Comment on above: Performed By: #### Brett SHHA PREGU, UMICRO #### [facility] [address] [place] [address] [address] Jacob Mcdaniel WBC 10-20 Abnormal NONE SEEN [facility] Comment on above: Performed By: #### E PABLO PREGU, UMICRO #### [facility] [address] [place] [address] [address] Jacob Mcdaniel XR lumbar spine AP/LAT/FLX/E XTon 07-29-2021 XR lumbar spine AP/LAT/FLX/EXT [facility] [place] [address] [place] [address] XRay Report Signed Patient: Tiera [place] MR#: [id number] 21 : 1970 Acct:[id number] Age/Sex: 50 / F ADM Date: 07/29/21 Loc: XD Room: Type: [facility] Attending Dr: Matteo Person MD Ordering Provider: [...] study. Impression dictated by: Wilson Aguilar Jr., D.O.07/29/2021 2:43 PM Dictation Location: [place] [address] Transcribed By: [facility] 07/29/21 1443 Dictated By: Wilson Aguilar Jr, DO 07/29/21 1441 Signed By: 07/29/21 1443 [facility] Operative Reporton 9 Operative Report MR#: [id number] [facility] Pt. Name: Tiera [place] Room #: 0C Discharge Date: Birthdate: 1970 OPERATIVE REPORT DATE OF SURGERY: 12/01/2018 SURGEON: Lizbeth Fleming M.D. PREOPERATIVE DIAGNOSIS: Left shoulder rotator cuff tear. POSTOPERATIVE DIAGNOSIS: Left shoulder rotator cuff tear. PROFILE SAW OPERATOR: Darinel Bartholomew M.D. ANESTHESIA: General. PROCEDURE PERFORMED: Left shoulder rotator cuff repair. INDICATIONS: The patient is a 48-year-old woman, who had previously had a rotator cuff repair performed by Dr. Melvin in [place]. I reviewed the intraoperative images and it [...] reconstruction. This would be to remove her bois forte rotator cuff tendon and instead reconstruct with [...] of physical therapy. Electronically Signed by: Lizbeth Fleming M.D. 12/10/2018 03:00 P Lizbeth Fleming M.D. Date Dict: 12/01/2018/11:05 A/Lizbeth Fleming M.D. Date Trans: 12/01/2018 11:50 A/cory [id number] cc: Gerald Tavares D.O. [address] [facility] [address] Normal [facility] POC GLUCOSE LABon 12-01-2018 Glucose [Mass/Vol] 79 mg/dL Normal 70-100 The [facility] Comment on above: Performed By: #### 8 [id number] #### [address] POC URINE PREGNANCYon 2018 Beta HCG ( test) Ql (U) Negative Normal NEGATIVE [facility] Comment on above: Result Comment: Perf ormed in PACU Performed By: #### 8 4140 #### [address] MRI SHOULDER WO CONTRAST LEF Ton 08-18-2018 MRI SHOULDER WO CONTRAST LEFT [facility] Department of Radiology [address] [place] [id number] Patient Name: TIERA [place] : 1970 Sex: F Age: Race: White Pt. Location: Patient Status: Ordered Date: 08/10/2018 12:00:00 PM Completed Date: 08/18/2018 07:41 AM Requesting Provider: LIZBETH FLEMING Attending Provider: Report Copy To: Signs & Symptoms: M75.122 Complete rotatr-cuff tear/ruptr of left shoulder, not trauma I10 History: [place], [place] left shoulder -new number npc mri [id number] / anthem per shyam call ref # [id number] *er Comments: , , , Ordering Provider - LIZBETH FLEMING MD , Exam: MRI SHOULDER WO CONTRAST LEFT MRI SHOULDER WO CONTRAST LEFT 08/18/2018 7:41 AM EDT SIGNS AND SYMPTOMS: M75.122 Complete rotatr-cuff tear/ruptr of left shoulder, not trauma I10 TECHNOLOGIST COMMENTS: patient complains of left shoulder pain with limited ROM for about 1 year. h/o 6 prior shoulder surgeries QUESTION FOR THE RADIOLOGIST: , , , Ordering Provider - LIZBETH FLEMING MD , PROTOCOL: Images were obtained in [...] 10. Electronically signed by:Peggy Winchester. Transcribed by: [email or web address], User Resident: Electronically Signed by: PEGGY WINCHESTER @ 08/18/2018 10:48 AM Normal [facility] Comment on above: Order Comment: , , = ========= , Ordering Provider - LIZBETH FLEMING MD , CNOVon 03-16-2018 CNOV Office Visit (SPSNAV) -------TIERA WAKEFIELD ([id number]) 1970 [facility] Time Provider Xevyoleaum06/27/18 2:55 PM Tahir ANN SPSNAV During your [...] will see her back in onemonth's time.Tahir Ann, JACEYeflashawn Provider: ZORAIDA ALMANZAR [[id number]]Allergies As of Date: 03/16/2018 Noted Allergy ReactionASPIRIN 04/07/2014 14 - Other: See CommentsDate Reviewed: 02/18/2018Reviewed by: Christine RojasRn) JOLENE Downing - Fully AssessedReason for Visit: Follow [...] FOR* More...Follow-up and Disposition History RecordedEncounter Number: [id number] Status:Closed by Tahir ANN MD on 03/16/18 [facility] PROGRESSon 03-16-2018 Protein mass conc HNO ID: [id number] thor: Tahir Phillips: (none)Author Type: PhysicianType: Progress [...] activities as she tolerates. I will see chanellack in one month's time.Tahir Ann MD Normal [facility] HISTORY PHYSICALon 8 HISTORY PHYSICAL HNO ID: [id number] thor: Sydney Reyna ([facility]) Marisol Hidalgo: (none)Author Type: Physician AssistantType: HANDPFiled: 02/18/2018 9:35 AMNote Text:LOCAL PROCEDURE HISTORY AND PHYSICAL EXAMSERVICE DATE: 02/18/2018SERVICE TIME: 9:34 AMProvisional Diagnosis/Treatment Plan: lumbar disc herniation/Right [id number]: This is a 47 year old female [...] TFESISIGNATURE: Sydney Hidalgo PA-C PATIENT NAME: Tiera No: February 18, 2018 : 9:34 AM PAGER: [phone] [facility] NURSING PROGon 02-18-2018 Protein mass conc HNO ID: [id number] thor: Christine (Rn) [place], RNService: (none)Author Type: Registered NurseType: Nursing Progress NoteFiled: 02/18/2018 9:54 AMNote Text: Nursing Progress NotePatient Name: Tiera SunshineRN: [id number] Location: AV Endo/AV Endo Daily Note: 945 - Pt arrived to post op awake, oriented x 3. Pt statespain has gone from 10/10 to 6/10 to right leg. Pt still having numbnessto right leg. Pedal push/pulls equal and strong. vSSThis note was completed by: Christine Downing, RN [facility] OPERATIVE NOon 02-18-2018 OPERATIVE NO HNO ID: [id number] thor: Zoraida Fine: (none)Author Type: PhysicianType: Operative ReportFiled: 02/18/2018 9:44 AMNote Text:Pt presents for f/u. Continues to have Rt leg pain. Appearsuncomfortable, seen by Dr. Ann for surgical eval. Wants to proceed withan injection today to address the presenting symptoms. Consent obtained.Rt side was marked in the pre-op area. Pt is aware of risks, benefits,alternatives, expected outcome, equipment and personnel.[facility] was performed identifying the site, side and levelof procedure prior to start of procedure.[facility] [place] - ELECTIVE PROCEDURELumbar Transforaminal Epidural Steroid Injection [...] and I performed theentire procedure.Zoraida Almanzar DO, NEHAL [facility] PT EDon 02-18-2018 PT ED HNO ID: [id number] thor: Christine (Rn) [place], RNService: (none)Author Type: Registered NurseType: Patient EducationFiled: 02/18/2018 9:58 AMNote Text:POST OP LEARNING RESPONSEINSTRUCTION PROVIDED TO: PatientMETHOD OF INSTRUCTION: Written instruction - handoutsVerbal instructionPATIENT / FAMILY RESPONSE: Verbalizes understanding of: POST-PROCEDUREINSTRUCTIONS- Correct actions to take to reduce post procedurecomplicationsFOLLO W-UP PLAN: Complete - No need for follow-upSUPPLEMENTAL MATERIAL: NoneREFERRAL (RECOMMENDATION): NoneElectronically Signed By: Christine Downing RN In Department: PROCEDURES [facility] PT ED HNO ID: [id number] thor: Keely (Rn) Angelica, RNService: NursingAuthor Type: Registered NurseType: Patient EducationFiled: 02/18/2018 9:28 AMNote Text:PRE OP LEARNING ASSESSMENTPROCEDURE/SURGERY : PAIN MANAGEMENT: lumbar epiduralREADINESS TO LEARNCOGNITIVE ABILITY: Alert and orientedMOTIVATION TO LEARN: InterestedFAMILY SUPPORT: High - Very involved in pt carePATIENT LEARNS BEST BY: Individual InstructionVerbal InstructionFACTORS AFFECTING LEARNING: NonePHYSICAL LIMITATIONS AFFECTING LEARNING: NoneElectronically Signed By: Keely Dominguez RN [facility] Office Visit (SPSNAV) -------TIERA WAKEFIELD ([id number]) 1970 FDate Time Provider Kfeinluqhd48/30/18 1:55 PM Tahir ANN SPSNAV During your visit today, we recorded the following information about you:Tahir Ann MD 02/16/2018 5:11 PM SignedSPINE SURGERY NEW PATIENTPCP: No primary care provider on file.REFERRING PROVIDER: Dr Shabbir CastorenaBJECTIVEHISTORY OF PRESENT ILLNESS:Tiera Wakefield is a 47 year old female presenting [...] is greater than in the backDERMATOMAL DISTRIBUTION:Right: [id number] STATUS: Minimal Ambulation/Wheelchair BoundANTIPLATELET OR ANTICOAGULATION STATUS: [...] SLRDATA REVIEWCCF records reviewedASSESSMENT/PLANAcut e L5-S1 herniated diskTiera Wakefield will continue with medical management of his/her [...] MagallonATE: February 16, 2018 : 1:15 PM PAGER:Tahir Ann MD 02/16/2018 5:11 PM SignedThis 47-year-old woman presents complaining of a one-week history of severeright sided sciatica. It began suddenly. Her MRI shows a large extruded L5-N1wauwoibo.I think there is a high chance that this will resolve spontaneously withnonoperative care. To manage her symptoms in the short term she may benefitfrom an epidural injection. I will see her back in one month's time.Tahir Ann, [facility] CENTEReferring Provider: ZORAIDA ALMANZAR [[id number]]Allergies As of Date: 02/16/2018 Noted Allergy ReactionASPIRIN [...] Status:Closed by Tahir ANN MD on 02/16/18 [facility] [place] 02-16-2018 CNPN Telephone (NIQ) ----TIERA WAKEFIELD ([id number]) 1970 FDa Time Provider Arjvspfztx35/30/18 ZORAIDA ALMANZAR During your visit today, we recorded the following information about you:Lisa Elizabeth 02/16/2018 1:54 PM SignedPt at check out scheduled for injection on 02/18/[address] Almanzar at 9AMRight L5-S1 TFESI-DM/-ThinWill sign Ermelinda Martin 02/16/2018 2:49 PM SignedESR Rossi Martin 02/16/2018 2:51 PM SignedEsr Reggie As of Date: 02/16/2018 Noted Allergy ReactionASPIRIN 04/07/2014 14 - Other: See CommentsDate Reviewed: 02/15/2018Reviewed by: Zoraida Almanzar - Fully AssessedReason for Visit: Tranforaminal Epidural Steroid Injection [1061]Order(s):SURGICAL REQUEST - ELECTIVE [[id number]] Order #: [id number]: 1Prescriptions as of 02/16/2018 Sig: FLUTICASONE 100 [...] [M51.26] INVALID FOR* More... Status:Closed by AURA MARTIN on 02/16/18 Normal [facility] HOSPon 02-16-2018 HOSP Patient:Aissatou Wakefield AMRN: Height:5' 3 (1.6 m)Weight:149 lb (67.586 [...] the following basenames: K,HCTProgress Notes (SPINE MED [facility] REJ):Elaine Woodson, RN, RN 02/16/2018 4:33 PM SignedPatient [facility] Ann todaySherron is scheduled for an epidural injection sking for pain medication for relief prior to injectionReturn call to [phone] Griffin LPN 02/17/2018 9:21 AM SignedThe prescription you requested has been called in to Dr Tracy dejesus at [facility] to pt and advised.Pt verbalized understanding.Progress Notes ([facility]):Lisa Elizabeth 02/16/2018 1:54 PM SignedPt at check out scheduled for injection on 02/18/[address] Almanzar at 9Aight L5-S1 TFESI-DM/-Lynn sign eddieiverAura Martin 02/16/2018 2:49 PM SignedESR DONETraalexia Martin 02/16/2018 2:51 PM SignedEsr done [facility] PROGRESSon 02-16-2018 Protein mass conc HNO ID: [id number] thor: Tahir Phillips: (none)Author Type: PhysicianType: Progress [...] her back in one month'stime.Tahir Ann MD [facility] Protein mass conc HNO ID: [id number] thor: Tahir Phillips: (none)Author Type: PhysicianType: Progress NotesFiled: 02/16/2018 5:11 PMNote Text:SPINE SURGERY NEW PATIENTPCP: No primary care provider on file.REFERRING PROVIDER: Dr Shabbir DerasJECTIVEHISTORY OF PRESENT ILLNESS:Tiera Wakefield is a 47 year old female presenting [...] is greater than in the backDERMATOMAL DISTRIBUTION:Right: [id number] STATUS: Minimal Ambulation/Wheelchair BoundANTIPLATELET OR ANTICOAGULATION STATUS: [...] SLRDATA REVIEWCCF records reviewedASSESSMENT/PLANAcut e L5-S1 herniated diskKiglendy Wakefield will continue with medical management of his/hercondition.1. [...] 16, 2018 : 1:15 PM PAGER: Tyrell [facility] Carlos A 02-15-2018 CNOV Office Visit (SPNMAV) -------TIERA WAKEFIELD ([id number]) 1970 FDate Time Provider Jacbagjcnc92/29/18 1:20 PM ZORAIDA ALMANZAR SPNMAV During your visit today, we recorded the following information about you: Blood pressure Weight Height 122/84 68 kg 1.6 Hector Almanzar DO 02/15/2018 2:25 PM SignedSpine Care Path Low Back Pain - Acute (0 - 6 weeks) Initial ExamSUBJECTIVEHISTORY OF PRESENT ILLNESS:Tiera Wakefield is a 47 year old female who [...] side. [place] been seen in [place] in [place] numeroustimes over past week.Other Issues Addressed at [...] weakness.SIGNATURE: Zoraida Almanzar DO PATIENT NAME: Tiera No: February 15, 2018 : 1:47 PMHPI explored [...] Official reports pending.Loss of disc ht at L5/a8UPSCQAIXYY:See diagnosis.PLAN:Discussed various options including non-surgical and surgical [...] right-sided sciatica [M54.41]Order(s):MRI LUMBAR SPINE WO IVCON [[id number]] Order #: [id number] FUTURE CONSULT TO SPINE SURGERY [[id number]] Order #: [id number]: 1Prescriptions as of 02/15/2018 Sig: FLUTICASONE 100 MCG-SALMETERO* Advair Diskus 100 mcg-50 mcg/* ALBUTEROL SULFATE 2.5 MG/3 ML* albuterol sulfate 2.5 mg/3 mL* BACLOFEN 10 MG TABLET CITALOPRAM 20 MG TABLET citalopram 20 mg tablet METHYLPREDNISOLONE 4 MG TABLE* METHYLPREDNISOLONE 4 MG TABLE* methylprednisolone 4 mg table*Problem List As Of Date: 02/15/2018(None) Status:Closed by ZORAIDA ALMANZAR DO on 02/15/18 Normal [facility] MRI LUMBAR SPINE WO IVCONon 02-15-2018 MRI [...] crest and assume there are 5 lumbar-type vertebrae.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 Hasbeen seen in ED in [place] numerous times over past week.Other Issues Addressed [...] Official reports pending.Loss of disc ht at L5/b0SFXVTDBJAY:See diagnosis.PLAN:Discussed various options including non-surgical and surgical [...] to consulting/requestingphysic corinna.Zoraida Almanzar DO, MBA Normal [facility] SR-XR Spine Lumbosacral 2 or 3 Views IMPORTon 02-12-2018 SR-XR Spine Lumbosacral 2 or 3 Views IMPORT Images were obtained outside of [facility] [id number] Normal [facility] Vital Signs Date Time Vital Sign Value Performing Clinician Facility 05-19-2023 08:50-0500 Blood Pressure Location Anna Hassan [facility] 05-19-2023 08:50-0500 Body temperature 96.8 [degF] Anna Hassan [facility] 05-19-2023 08:50-0500 Diastolic blood pressure 76 mm[Hg] Anna Hassan [facility] 05-19-2023 08:50-0500 Heart rate 62 /min Anna Hassan [facility] 05-19-2023 08:50-0500 Systolic blood pressure 120 mm[Hg] Anna Hassan [facility] 02-18-2023 10:30-0400 Body height 161.29 cm Christina Rameymond Other [facility] Other 02-18-2023 10:30-0400 Body mass index (BMI) [Ratio] 27.9 kg/m2 Christina Montana Other [facility] Other 02-18-2023 10:30-0400 Body temperature 98.2 [degF] Christina Montana Other [facility] Other 02-18-2023 10:30-0400 Body weight 72.58 kg Christina Rameymond Other [facility] Other 02-18-2023 10:30-0400 Diastolic blood pressure 78 mm[Hg] Christina Rameymond Other [facility] Other 02-18-2023 10:30-0400 Respiratory rate 18 /min Christina Rameymond Other [facility] Other 02-18-2023 10:30-0400 SaO2% (BldA) [Mass fraction] 98 % Christina Nan Other [facility] Other 02-18-2023 10:30-0400 Systolic blood pressure 134 mm[Hg] Christina Nan Other [facility] Other 12-20-2022 11:40-0400 Body height 161.29 cm Christina Nan Other [facility] Other 12-20-2022 11:40-0400 Body mass index (BMI) [Ratio] 27.55 kg/m2 Christina Nan Other [facility] Other 12-20-2022 11:40-0400 Body temperature 97 [degF] Christina Nan Other [facility] Other 12-20-2022 11:40-0400 Body weight 71.67 kg Christina Nan Other [facility] Other 12-20-2022 11:40-0400 Diastolic blood pressure 79 mm[Hg] Christina Nan Other [facility] Other 12-20-2022 11:40-0400 SaO2% (BldA) [Mass fraction] 98 % Christina Nan Other [facility] Other 12-20-2022 11:40-0400 Systolic blood pressure 142 mm[Hg] Christina Nan Other [facility] Other 11-17-2022 15:48-0400 Blood Pressure Location [facility] 11-17-2022 15:48-0400 Body temperature 97.16 [degF] Anna Sonya [facility] 11-17-2022 15:48-0400 Diastolic blood pressure 75 mm[Hg] Anna Sonya [facility] 11-17-2022 15:48-0400 Heart rate 63 /min Anna Sonya [facility] 11-17-2022 15:48-0400 Systolic blood pressure 124 mm[Hg] Anna Sonya [facility] 07-26-2021 11:45-0400 Body height 161.29 cm Matteo Person Other [facility] Other 07-26-2021 11:45-0400 Body mass index (BMI) [Ratio] 28.94 kg/m2 Matteo Person Other [facility] Other 07-26-2021 11:45-0400 Body weight 75.3 kg Matteo Person Other [facility] Other 07-26-2021 11:45-0400 Diastolic blood pressure 80 mm[Hg] Matteo Person Other [facility] Other 07-26-2021 11:45-0400 SaO2% (BldA) [Mass fraction] 99 % Matteo Person Other [facility] Other 07-26-2021 11:45-0400 Systolic blood pressure 120 mm[Hg] Matteo Person Other [facility] Other Encounters Encounter Date Encounter Type Care Provider Facility Start: 05-19-2023 End: 05-20-2023 ambulatory Anna Hsasan [facility] Start: 05-19-2023 End: 05-19-2023 Patient encounter procedure Anna Hassan [facility] Start: 05-12-2023 End: 05-12-2023 Lab Drop off Matthew Bemini [facility] Start: 05-12-2023 End: 05-13-2023 ambulatory Castro Talal Indianamini Facility:[facility] Start: 04-27-2023 End: 04-28-2023 ambulatory Annasanto Hassan Facility:[facility] Start: 04-27-2023 End: 04-27-2023 ambulatory YOLIE FORRESTER Not Available Start: 02-18-2023 End: 02-18-2023 ambulatory Christina Nan Other [facility] Other Start: 02-18-2023 Office outpatient vi sit 15 minutes Christina Nan [facility] Start: 12-20-2022 End: 12-20-2022 ambulatory Christina Nan Other [facility] Other Start: 12-20-2022 Office outpatient vi sit 15 minutes Christina Nan [facility] Start: 12-01-2022 End: 12-02-2022 ambulatory Anna Hassan Facility:[facility] Start: 12-01-2022 End: 12-01-2022 Patient encounter procedure Annasanto Hassan [facility] Start: 11-17-2022 End: 11-18-2022 ambulatory Anna Robert Sonya [facility] Start: 11-17-2022 End: 11-17-2022 Patient encounter procedure Annasanto Mcdonoughz [facility] Start: 07-18-2022 End: 07-19-2022 [facility] Start: 07-18-2022 End: 07-18-2022 Patient encounter procedure Anna Hassan [facility] Start: 06-05-2022 Encounter for genera l adult medical examination without abnormal findings DR GERALD TAVARES [facility] Start: 06-04-2022 End: 06-05-[address] YANELY WEINER Facility:[facility] Start: 06-04-2022 End: 06-05-2022 Encounter for general adult medical examination without abnormal findings DR GERALD TAVARES Facility:[facility] Start: 05-30-2022 End: 05-30-[address] LIZBETH TANG Facility:[facility] Start: 01-22-2022 End: 01-22-[address] GERALD TAVARES Facility:[facility] Start: 09-25-2021 End: 09-26-[address] DERIK LLOYD Facility:[facility] Start: 08-22-2021 (Procedure) Short Matteo Person [facility] Start: 08-22-2021 End: 08-22-2021 ambulatory Matteo Person Other [facility] Other Start: 08-12-2021 End: 08-12-2021 ambulatory Matteo Person Other [facility] Other Start: 08-12-2021 Telephone encounter Matteo Person [facility] Start: 07-30-2021 End: 07-30-2021 ambulatory Matteo Person Other [facility] Other Start: 07-30-2021 Telephone encounter Matteo Person [facility] Start: 07-26-2021 End: 07-26-2021 ambulatory Matteo Person Other [facility] Other Start: 07-26-2021 Office outpatient vi sit 25 minutes [facility] Start: 12-01-2018 End: 12-02-2018 Patient encounter procedure LIZBETH FLEMING Facility:[facility] Start: 03-16-2018 End: 03-17-2018 Patient encounter procedure Tahir ANN [facility] Start: 02-18-2018 End: 02-18-2018 Patient encounter procedure ZORAIDA A [facility] Start: 02-16-2018 End: 02-17-2018 Patient encounter procedure Tahir ANN [facility] Start: 02-15-2018 Patient encounter procedure [facility] Start: 02-15-2018 End: 02-15-2018 Patient encounter procedure ZORAIDA Jones [facility] Procedures Date Procedure Procedure Detail Performing Clinician Start: 05-02-2021 Colonoscopy Anna Hassan Start: 12-01-2018 ANESTH SURGERY OF SHOULDER EDISON Jones Start: 12-01-2018 Arthroscopy shoulder rotator cuff repair LIZBETH FLEMING Anxiety disorder (disorder) Anna Hassan Arthroscopy of [...] Immunization Date Immunization Notes Care Provider Fa cility 03-18-2021 SARS-CoV-2 (COVID-19 ) mRNA BNT-162b2 vax Anna Hassan [facility] Comment on above: Result Comment: 2022: [id number] 05-14-2012 hepatitis A vaccine, adult dosage Anna Hassan [facility] 05-14-2012 hepatitis B vaccine, pediatric or pediatric/adolescent dosage Anna Hassan [facility] NEGATED: Highlighted row has not occurred!05-18-2023 influenza virus vaccine, unspecified formulation Anna Hassan [facility] NEGATED: Highlighted row has not occurred!04-24-2023 influenza virus vaccine, unspecified formulation Castro Indianamini [facility] NEGATED: Highlighted row has not occurred!02-27-2021 influenza virus vaccine, unspecified formulation Anna Hassan [facility] Payers Date Payer Category Payer Unknown [id number] 1970 Unknown [id number] 2.16.8 [id number] 1970 Unknown [id number] 2.16.84 [id number] 1970 Unknown [id number] 2.16.84 [id number] 1970 Unknown [id number] 2.16.84 0.1.946451.3.579.2.593 1970 Unknown [id number] 2.16.84 0.1.942716.3.579.2.593 1970 Unknown [id number] 2.16.84 0.1.696906.3.579.2.593 1970 Unknown [id number] 2.16.840 .1.740340.3.579.2.1259 1970 Unknown [id number] 2.16.8 40.1.121043.3.579.2.727 1970 Unknown [id number] 2.16.8 40.1.744255.3.579.2.727 1970 Unknown [id number] 2.16.8 40.1.671532.3.579.2.727 1970 Unknown [id number] 2.16.8 40.1.531676.3.579.2.727 1970 Unknown [id number] 2.16.8 40.1.782844.3.579.2.727 1970 Unknown [id number] 2.16.8 40.1.224584.3.579.2.727 1970 Unknown [id number] 2.16.8 40.1.974566.3.579.2.727 1960 [facility] [id number] Unknown [id number] Social History Date Type Detail Facility Sex Assigned At [facility] Start: 05-02-2021 End: 05-19-2023 Tobacco smoking status Ex-smoker (finding) [facility] Comment on above: denies Tobacco smoking status Never [facility] Functional Status Date Assessment Result Facility 05-19-2023 Functional Status N/A [facility] 11-17-2022 Functional Status N/A [facility] Clinical Notes 07-26-2021 to 05-19-2023 Note Date & Type Note Facility 05-19-2023 Hospital Discharg e instructions Patient Education 05/19/2023 08:44:59 Esophagitis Esophagitis Esophagitis is inflammation of the esophagus. The esophagus is the tube that carries food from the mouth to the stomach. Esophagitis can cause soreness or pain in the esophagus. This condition can make it difficult and painful to swallow. What are the causes? Most causes of esophagitis are not serious. Common causes of this condition include: Gastroesophageal reflux disease (GERD). This is when stomach contents move back up into the esophagus (reflux). Repeated vomiting. An allergic reaction, especially caused by food allergies (eosinophilic esophagitis). Injury to the esophagus by swallowing large pills with or without water, or swallowing certain types of medicines. Swallowing harmful chemicals, such as household cleaning products. Drinking a lot of alcohol. An infection of the esophagus. This most often occurs in people who have a weakened immune system. Radiation or chemotherapy treatment for cancer. Certain diseases such as sarcoidosis, Crohn's disease, and scleroderma. What are the signs or symptoms? Symptoms of this condition include: Difficult or painful swallowing. Pain with swallowing acidic liquids, such as citrus juices. You may also have pain when you burp. Chest pain and difficulty breathing. Nausea and vomiting. Pain in the abdomen. Weight loss. Ulcers in the mouth and white patches in the mouth (candidiasis). Fever. Coughing up blood or vomiting blood. Stool that is black, tarry, or bright red. How is this diagnosed? This condition may be diagnosed based on your medical history and a physical exam. You may also have other tests, including: A test to examine your esophagus and stomach with a small flexible tube with a camera (endoscopy). A test that measures the acidity level in your esophagus. A test that measures how much pressure is on your esophagus. A barium swallow or modified barium swallow to show the shape, size, and functioning of your esophagus. Allergy tests. How is this treated? Treatment for this condition depends on the cause of your esophagitis. In some cases, steroids or other medicines may be given to help relieve your symptoms or to treat the underlying cause of your condition. You may have to make some lifestyle changes, such as: Avoiding alcohol. Quitting any products that contain nicotine or tobacco. These products include cigarettes, chewing tobacco, and vaping devices, such as e-cigarettes. If you need help quitting, ask your health care provider. Changing your diet. Exercising. Changing your sleep habits and your sleep environment. Follow these instructions at home: Medicines Take sanz-bdl-ztebcod and prescription medicines only as told by your health care provider. Do not take aspirin, ibuprofen, or other NSAIDs unless your health care provider told you to do so. If you have trouble taking pills: ?Use a pill splitter to decrease the size of the pill. This will decrease the chance of the pill getting stuck or injuring your esophagus. ?Drink water after you take a pill. Eating and drinking Avoid foods and drinks that seem to make your symptoms worse. Follow a diet as recommended by your health care provider. This may involve avoiding foods and drinks such as: ?Coffee and tea, with or without caffeine. ?Drinks that contain alcohol. ?Energy drinks and sports drinks. ?Carbonated drinks or sodas. ?Chocolate and cocoa. ?Peppermint and mint flavorings. ?Garlic and onions. ?Horseradish. ?Spicy and acidic foods, including peppers, chili powder, yeboah powder, vinegar, hot sauces, and barbecue sauce. ?[place] fruit juices and citrus fruits, such as oranges, zaynab, and limes. ?Tomato-based foods, such as red sauce, chili, salsa, and pizza with red sauce. ?Fried and fatty foods, such as donuts, mongolian fries, potato chips, and high-fat dressings. ?High-fat meats, such as hot dogs and fatty cuts of red and white meats, such as rib eye steak, sausage, ham, and drake. ?High-fat dairy items, such as whole milk, butter, and cream cheese. Lifestyle Eat small, frequent meals instead of large meals. Avoid drinking large amounts of liquid with your meals. Avoid eating meals during the 2 3 hours before bedtime. Avoid lying down right after you eat. Do not exercise right after you eat. Do not use any products that contain nicotine or tobacco. These products include cigarettes, chewing tobacco, and vaping devices, such as e-cigarettes. If you need help quitting, ask your health care provider. General instructions Pay attention to any changes in your symptoms. Let your health care provider know about them. Wear loose-fitting clothing. Do not wear anything tight around your waist that causes pressure on your abdomen. Raise (elevate) the head of your bed about 6 inches (15 cm). You may need to use a wedge to do this. Try relaxation strategies such as yoga, deep breathing, or meditation to manage stress. If you need help reducing stress, ask your health care provider. If you are overweight, reduce your weight to an amount that is healthy for you. Ask your health care provider for guidance about a safe weight loss goal. Keep all follow-up visits. This is important. Contact a health care provider if: You have new symptoms. You have unexplained weight loss. You have difficulty swallowing, or it hurts to swallow. You have wheezing or a cough that does not go away. Your symptoms do not improve with treatment. You have frequent heartburn for more than two weeks. Get help right away if: You have sudden severe pain in your arms, neck, jaw, teeth, or back. You suddenly feel sweaty, dizzy, or light-headed. You have chest pain or shortness of breath. You vomit and the vomit is green, yellow, or black, or it looks like blood or coffee grounds. Your stool is red, bloody, or black. You have a fever. You cannot swallow, drink, or eat. These symptoms may represent a serious problem that is an emergency. Do not wait to see if the symptoms will go away. Get medical help right away. Call your local emergency services (911 in the [place] Do not drive yourself to the hospital. Summary Esophagitis is inflammation of the esophagus. Most causes of esophagitis are not serious. Follow your health care provider's instructions about eating and drinking. Contact a health care provider if you have new symptoms, have weight loss, or coughing that does not stop. Get help right away if you have severe pain in the arms, neck, jaw, teeth, or back, or if you have chest pain, shortness of breath, or fever. This information is not intended to replace advice given to you by your health care provider. Make sure you discuss any questions you have with your health care provider. Document Revised: 10/15/2020 Document Reviewed: 10/15/2020 [employer] Patient Education 2022 [employer] Follow Up Care 05/18/2023 11:08:33 With:Sonya DIALYSIS REGISTERED NURSE, Anna A Address: When:3 months [facility] 02-18-2023 Evaluation note Encounter Date Diagnosis Assessment [...] otitis media with effusion (ICD-10 - H65.93) [employer] Other 09-02-2023 Evaluation note* Encounter Date Diagnosis [...] 2 to 3-day Dec, Other Contact dermati tis home care material was printed [employer] Other 07-31-2023 Hospital Discharge instructions Patient Education [...] treated at home. Treatment may include: Taking cwto-zjr-[id number] pain medicines. Following a clear liquid diet. [...] Follow these instructions at home: Medicines Take ijce-dhh-mokuhia and prescription medicines only as told by [...] provider. Document Revised: 01/16/2020 Document Reviewed: 01/16/2020 [employer] Patient Education 2022 [employer] Follow Up Care 10/15/2022 08:09:26 With:Anna Hassan CNP Address: When:1 month [facility] 07-31-2023 Evaluation + Plan note Future Scheduled Tests Radiology* CT Abdomen/Pelvis w/ Contrast 11/17/22 [facility] 02-10-2023 NotePROCEDURE: XR ANKLE [...] No acute fracture Electronically authenticated by: LIZBETH TANG Date: 2022-05-30 13:52[facility]02-10-2023 NotePROCEDURE: XR ANKLE RT MIN 3 VIEWS, XR FOOT RT MIN 3 VIEWS COMPARISON: None. HISTORY: Joint pain FINDINGS: BONES:No acute fracture or dislocation of the foot or ankle. Minimal enthesopathic spurring of the calcaneus at the Achilles insertion SOFT TISSUES:Mild lateral soft tissue swelling EFFUSION:None visible. OTHER: Negative. IMPRESSION: Minimal lateral soft tissue swelling No acute fracture Electronically authenticated by: LIZBETH TANG Date: 2022-05-30 13:52[facility]04-08-2022 Evaluation note* Encounter Date Diagnosis Assessment [...] - G89.29) Continue with current treatment plan. [employer] Other Evaluation + Plan note No data available for this section [facility] Evaluation noteNo InformationNort [employer] Other History general Narrative - Reported* Type Description Date Medical History Left rotator cuff Medical History Asthma Medical History GERD Surgical History 6 left shoulder surgeries Surgical History Left rotator cuff, x5 Surgical History Left knee Surgical History Left knee, torn ACL and meniscu s Surgical History Gallbladder Surgical History Lap Cholecystectomy Surgical History nerve block Hospitalization History See Above [employer] Other Hospital Discharge instructions No data available for this section [facility] Progress note No data available for this section [facility] Summary Purpose Family History No Family History Records FoundNo Family History Records FoundNo Family History Records FoundNo Family History Records FoundNo Family History Records FoundNo Family History Records FoundNo Family History Records Found No data available for this section No data available for this section No Family History Records Found Advance Directives No Advanced Directives Records FoundNo Advanced Directives Records FoundNo Advanced Directives Records FoundNo Advanced Directives Records FoundNo Advanced Directives Records FoundNo Advanced Directives Records FoundNo Advanced Directives Records FoundNo Advanced Directives Records Found Additional Source Comments INFORMATION SOURCE (unrecogn ized section and content) DATE CREATED AUTHOR 03/22/2018 [facility] DATE CREATED AUTHOR AUTHOR'S ORGANIZ ATION 03/27/2018 [facility] DATE CREATED AUTHOR AUTHOR'S ORGANIZ ATION 03/27/2018 [facility] DATE CREATED AUTHOR AUTHOR'S ORGANIZ ATION 03/07/2019 [facility] DATE CREATED AUTHOR AUTHOR'S ORGANIZ ATION 07/30/2021 [facility] DATE CREATED AUTHOR AUTHOR'S ORGANIZ ATION 06/05/2022 [facility] DATE CREATED AUTHOR AUTHOR'S ORGANIZ ATION 04/27/2023 [facility] EPIC DATE CREATED AUTHOR AUTHOR'S ORGANIZ ATION 05/20/2023 Thiago Yu [facility] REASON FOR VISIT (unrecogniz ed section and content) SORE THROAT, EARACHE CONGEST IONRASH UNDER ARMS AND DOWN SIDESISABEL SI JOINT INJECTIONreschedule procedureINCREASE BACK PAIN (seen 2019) Patient Care team informatio n (unrecognized section and content) Personnel Name: TAVARESGERALD CABRERA DO Address: Address: [address] [place] [address] Personnel Name: TAVARESGERALD CABRERA DO Address: Address: [address] [place] [address] Personnel Name: TAVARESGERALD CABRERA DO Address: Address: [address] [place] [address] Personnel Name: TAVARESGERALD CABRERA DO Address: Address: [address] [place] [address] Personnel Name: TAVARESGERALD CABRERA DO Address: Address: [address] [place] [address] FOR RECORDS PERTAINING TO PATIENTS WHO ARE [...] BE BASED ON THE PRIMARY CLINICAL RECORDS. [facility] [employer] provides no warranty or guarantee of the accuracy or completeness of information in this document.
[2023-06-05 10:22] LABS: Basophils Absolute Auto 0.1 10^3/uL (0.0-0.1); Eosinophils Absolute Auto 0.3 10^3/uL (0.0-0.7); Eosinophils Percent Auto 5.5 % (0.9-7.0); Hematocrit 41.4 % (36.0-48.0); Immature Granulocytes Abs Auto 0.01 10^3/uL (0.00-0.03); Immature Granulocytes Pct Auto 0.2 % (0.0-0.5); Lymphocytes Absolute Auto 1.9 10^3/uL (1.2-3.8); Lymphocytes Percent Auto 38.3 % (20.5-60.0); Mean Corpuscular HGB Conc 33.8 g/dL (29.9-35.2); Mean Corpuscular Hemoglobin 29.9 pg (26.7-34.0); Mean Corpuscular Volume 88.5 fL (81.0-99.0); Mean Platelet Volume 9.7 fL (9.5-13.5); Monocytes Absolute Auto 0.4 10^3/uL (0.3-0.8); Monocytes Percent Auto 7.7 % (1.7-12.0); Neutrophils Absolute Auto 2.4 10^3/uL (1.4-6.5); Neutrophils Percent Auto 47.3 % (43.0-75.0); Platelet Count 278 10^3/uL (150-450); Red Blood Count 4.68 10^6/uL (4.20-5.40); Red Cell Distribution Width 11.8 % (11.0-15.0); White Blood Count 5.1 10^3/uL (4.0-11.0)
[2023-06-05 11:17] LABS: Alanine Aminotransferase 56 U/L (14-59); Albumin Level 3.6 g/dL (3.4-5.0); Alkaline Phosphatase 55 U/L (46-116); Aspartate Amino Transferase 26 U/L (15-37); BUN Creatinine Ratio 20.5; Bilirubin Total 0.8 mg/dL (0.2-1.0); Calcium 8.7 mg/dL (8.5-10.1); Chloride 108 mmol/L (98-107); Chol HDL Ratio 3.3; Cholesterol 161 mg/dL (<=200); Estimated GFR (African America >60 (>=60); Estimated GFR (Non-African Ame >60 (>=60); Globulin 3.5 g/dL; Glucose 93 mg/dL (74-106); HDL Cholesterol 49 mg/dL (40-60); LDL Cholesterol Calculated 88.8 mg/dL; Sodium 144 mmol/L (136-145); Total Protein 7.1 g/dL (6.4-8.2); Triglycerides 116 mg/dL (<=150); VLDL CHOLESTEROL 23.2 mg/dL
== END 2023-06-05 08:05 | disposition home or self-care (01) ==
LOC: MAMMO 08:05
PROVIDERS: PCP Family Medicine; Visit Provider Family Medicine
DX: Z00.00 Encounter for general adult medical examination without abnormal findings (principal); Z80.41 Family history of malignant neoplasm of ovary; Z80.51 Family history of malignant neoplasm of kidney
CPT/HCPCS: 36415; 77063; 77067; 80053; 80061; 85025

== ENCOUNTER 2023-12-08 09:55 | Emergency (ER) | payer BC, SELFPAY ==
[2023-12-08 09:57] VITALS: BP 158/72; PULSE 78; TEMP 36.7; O2SAT 97; BMI 29.5
--- OUTSIDE RECORDS SUMMARY | 2023-12-08 10:12 | XMS_ITS | CCD ---
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 :1970 Visit Date:05/19/2023 Ambulatory Visit Instructions Your Diagnosis Esophagitis, [place]he[place] grade B Irregular Z line of esophagus Schatzki's ring Acid reflux Colon polyp Rectal polyp Your Care Team Attending Physician - Anna Hassan CNP Primary Care Physician - GERALD TAVARES DO This Is Your Medications List Contact prescribing physician if questions or concerns Al hydroxide/Mg hydroxide/simethicone (Mylanta Maximum Strength) BMX Solution acetaminophen-hydrocodone (Sutton 325 mg-5 mg oral tablet) albuterol (Albuterol [...] the Following Appointments Follow Up with Anna Hassan CNP When: Within 3 months Where: Medications What How Much When Why Instructions Unchanged acetaminophen-hydrocodone (Sutton 325 mg-5 mg oral tablet) 1 Tablets [...] or concerns Unchanged omeprazole (omeprazole 20 mg Cap-) Contact prescribing physician if questions or concerns Medications and Immunizations Administered Not Given influenza virus vaccine, inactivated, Patient Refuses Allergies No Known Medication Allergies Problems Ongoing - Any problem that you are currently receiving treatment for. Acid reflux Colon polyp Degenerative disc disease Esophagitis, Malheur grade B History of colon polyps History [...] Education Materials (more content not included)... Normal [facility] Consent for Procedure/Surger yon 05-19-2023 Consent for Procedure/Surgery [id number]#1.00TIFF [facility] Gastroenterology Office/Clin ic Noteon 05-19-2023 Gastroenterology Office/Clinic [...] hernia, irregular Z-line, salmon-colored mucosa suggestive of Austin's, widely open Schatzki's ring, LA grade B [...] Normal mood and affect Assessment/Plan 1. Esophagitis, Malheur grade B (K20.80: Other esophagitis without bleeding) EGD completed 05/12/2023 revealed hiatal hernia, irregular Z-line, salmon-colored mucosa suggestive of Austin's, widely open Schatzki's ring, LA grade B [...] hernia, irregular Z-line, salmon-colored mucosa suggestive of Austin's, widely open Schatzki's ring, LA grade B esophagitis, normal stomach, normal duodenum. No biopsies noted. See # 1. Ordered: EGD Endoscopy (Hospital Procedure) 3. Schatzki's ring (K22.2: Esophageal obstruction) EGD completed 05/12/2023 revealed hiatal hernia, irregular Z-line, salmon-colored mucosa suggestive of Austin's, widely open Schatzki's ring, LA grade B [...] hyperplastic polyps?p (more content not included)... Normal [facility] Comment on above: Result Comment: Elec tronically Signed By: Anna Hassan CNP\.liborio\Date and Time Signed: 05/19/23 09:27 EST Patient [...] these instructions at home: Medicines ? Take osvf-dyy-wpinjyw and prescription medicines only as told by [...] vinegar, hot sauces, and barbecue sauce. ? [place] fruit juices and citrus fruits, such as oranges, zaynab, and limes. ? Tomato-based foods, such as red sauce, chili, salsa, and pizza with red sauce. ? Fried and fatty foods, such as donuts, djiboutian fries, potato chips, and high-fat dressings. ? [...] your abdom (more content not included)... Normal [facility] Reminderson 05-15-2023 Reminders - From: Sonido Zapien To: [facility] - Reminders/Recalls; Sent: 05/15/2023 16:50:36 EST Show up: 04/20/2026 16:50:00 EST Subject: Ambulatory Reminder Due Date/Time: 05/12/2026 16:50:00 EST Reminder/Recall Repeat colonoscopy in 3 years(2026) due to tubular adenoma Normal [facility] Operative Reporton Operative Report [id number]#2.00TIFF [facility] Outside Colonoscopyon 2023 Outside Colonoscopy [id number]#2.00TIFF [facility] Physician Orderon 05-12-2023 Physician Order [id number]#1.00TIFF [facility] Insurance Correspondenceon 0 05-06-2023 Insurance Correspondence [id number]#1.00TIFF [facility] Consent for Procedure/Surger yon 04-28-2023 Consent for Procedure/Surgery [id number]#1.00TIFF [facility] Gastroenterology Office/Clin ic Noteon 04-27-2023 Gastroenterology Office/Clinic [...] record indicated patient was previously evaluated at [facility] 09/2022. Patient had CT A/P that showed [...] discharged home. Patient was again evaluated in [place] ED 10/15/22 for upper abdominal pain and was treated with GI cocktail. Labs 10/15/22 revealed normal WBC, normal H/H. Patient was advised per ED provider to take PPI and Carafate and discharged home. colon cancer: Denies. colon polyps- Denies. Patient reported during most [...] 2. D (more content not included)... Normal [facility] Comment on above: Result Comment: Jose flores Signed By: Anna Hassan CNP.liborio\Date and Time Signed: 04/27/23 12:52 EST Patient [...] grapefruit, pineapple, and zaynab. Vegetables Deep-fried vegetables. Kazakh fries. Any vegetables prepared with added fat. [...] reflux di (more content not included)... Normal [facility] Quick Strepon 02-18-2023 S. pyogenes Org specific cx Ql (Throat) Negative Therative Other ClaimKit Strep Therative Other CT Abdomen/Pelvis w/ Contras ton 12-03-2022 [...] No Oral contrast amount in ml's: 900 [facility] Consent for Treatmenton 11-18 Consent for Treatment [id number]#1.00CD:127 [facility] Insurance Correspondenceon 0 11-24-2022 Insurance Correspondence [id number]#1.00CD:127 [facility] Consent for Procedure/Surger yon 11-18-2022 Consent for Procedure/Surgery [id number]#1.00CD:127 [facility] ED Note-Physicianon 11-18-19 ED Note-Physician [id number]#1.00CD:127 [facility] ED Note-Physician [id number]#1.00CD:127 [facility] Gastroenterology Office/Clin ic Noteon 11-17-2022 Gastroenterology Office/Clinic Note Chief Complaint Abdominal pain and diarrhea. HPI Staff This is a 52 year old female who presents today for a follow up from [facility] ER on 10/08/22 and 10/15/22 [...] record indicated patient was previously evaluated at [facility] 10/09/2019. Patient had CT A/P that showed [...] discharged home. Patient was again evaluated in [place] ED 10/15/22 for upper abdominal pain and [...] record indicated patient was previously evaluated at [facility] 10/09/[address]. [address] A/P that showed [...] record indicated patient was previously evaluated at [facility] 10/09/2019. Patient had CT A/P that showed [...] 4. Irre (more content not included)... Normal [facility] Comment on above: Result Comment: Jose randhawaally Signed By: Anna Hassan CNP.liborio\Date and Time Signed: 11/17/22 16:16 EDT Lab Reportson 11-17-2022 Lab Reports [id number]#1.00CD:127 Normal [facility] Patient Educationon 11-18-19 Patient Education Gastroenterology Diverticulitis [...] at home. Treatment may include: ? Taking obrk-gfp-tfbvvqn pain medicines. ? Following a clear liquid [...] these instructions at home: Medicines ? Take iwxl-wbt-hdtfsrh and prescription medicines only as told by [...] diet lavell (more content not included)... Normal [facility] RAD - CT Reporton 11-17-2022 RAD - CT Report [id number]#1.00CD:127 Normal [facility] CBC AUTO DIFFon 06-04-2022 BASO # 0.0 103/ul Normal 0.0-0.1 [facility] Comment on above: Performed By: #### C BC #### [facility] [address] [place] [address] Dr. Jacob Mcdaniel Basophils/100 WBC (Bld) 0.8 % Normal 0.2-2.0 [facility] Comment on above: Performed By: #### C BC #### [facility] [address] [place] [address] Dr. Jacob Mcdaniel EO # 0.2 103/ul Normal 0.0-0.7 [facility] Comment on above: Performed By: #### C BC #### [facility] [address] [place] [address] Dr. Jacob Mcdaniel Eosinophils/100 WBC (Bld) 3.0 % Normal 0.9-7.0 [facility] Comment on above: Performed By: #### C BC #### [facility] [address] [place] [address] Dr. Jacob Mcdaniel Erythrocyte distribution width (RBC) [Ratio] 12.1 % Normal 11.0-15.0 [facility] Comment on above: Performed By: #### C BC #### [facility] [address] [place] [address] Dr. Jacob Mcdaniel Hematocrit (Bld) [Volume fraction] 42.5 % Normal 36.0-48.0 [facility] Comment on above: Performed By: #### C BC #### [facility] [address] [place] [address] Dr. Jacob Mcdaniel Hemoglobin (Bld) [Mass/Vol] 14.7 g/dL Normal 12.0-16.0 [facility] Comment on above: Performed By: #### C BC #### [facility] [address] [place] [address] Dr. Jacob Mcdaniel IG # 0.02 10e3/ul Normal 0.00-0.03 [facility] Comment on above: Performed By: #### C BC #### [facility] [address] [place] [address] Dr. Jacob Mcdaniel IG % 0.4 % Normal 0.0-0.5 [facility] Comment on above: Performed By: #### C BC #### [facility] [address] [place] [address] Dr. Jacob Mcdaniel LYMPH # 1.7 103/ul Normal 1.2-3.8 [facility] Comment on above: Performed By: #### C BC #### [facility] [address] [place] [address] Dr. Jacob Mcdaniel Lymphocytes/100 WBC (Bld) 31.8 % Normal 20.5-60.0 [facility] Comment on above: Performed By: #### C BC #### [facility] [address] [place] [address] Dr. Jacob Mcdaniel MANUAL DIFF REQ NO Normal [facility] Comment on above: Performed By: #### C BC #### [facility] [address] [place] [address] Dr. Jacob Mcdaniel MCH (RBC) [Entitic mass] 30.1 pg Normal 26.7-34.0 [facility] Comment on above: Performed By: #### C BC #### [facility] [address] [address] [address] Jacob Mcdaniel MCHC (RBC) [Mass/Vol] 34.6 g/dL Normal 29.9-35.2 [facility] Comment on above: Performed By: #### C BC #### [facility] [address] [place] [address] Dr. Jacob Mcdaniel MCV (RBC) [Entitic vol] 86.9 fL Normal 81.0-99.0 [facility] Comment on above: Performed By: #### C BC #### [facility] [address] [place] [address] Dr. Jacob Mcdaniel MONO # 0.3 103/ul Normal 0.3-0.8 [facility] Comment on above: Performed By: #### C BC #### [facility] [address] [place] [address] Dr. Jacob Mcdaniel Monocytes/100 WBC (Bld) 6.2 % Normal 1.7-12.0 [facility] Comment on above: Performed By: #### C BC #### [facility] [address] [place] [address] Dr. Jacob Mcdaniel NEUT # 3.1 103/ul Normal 1.4-6.5 [facility] Comment on above: Performed By: #### C BC #### [facility] [address] [place] [address] Dr. Jacob Mcdaniel Neutrophils/100 WBC (Bld) 57.8 % Normal 43.0-75.0 [facility] Comment on above: Performed By: #### C BC #### [facility] [address] [place] [address] Dr. Jacob Mcdaniel Platelet mean volume (Bld) [Entitic vol] 8.9 fL Critically low 9.5-13.5 [facility] Comment on above: Performed By: #### C BC #### [facility] [address] [place] [address] Dr. Jacob Mcdaniel PLT 263 103/ul Normal 150-450 [facility] Comment on above: Performed By: #### C BC #### [facility] [address], [place] [address] Dr. Jacob Mcdaniel RBC 4.89 106/ul Normal 4.20-5.40 [facility] Comment on above: Performed By: #### C BC #### [facility] [address], [place] [address] Dr. Jacob Mcdaniel WBC 5.3 103/ul Normal 4.0-11.0 [facility] Comment on above: Performed By: #### C BC #### [facility] [address], [place] [address] Dr. Jacob Mcdaniel MG MAMM SCREEN 3D ISABEL CADon 06-04-2022 MG MAMM SCREEN 3D ISABEL CAD Patient: TIERA WAKEFIELD Exam Date: 06/04/2022 : 1970 Gender:F Ordering : DR YANELY WEINER . Admission #: [id number] Family : DR GERALD TAVARES D.O. Order #: [id number] CLICK HERE TO VIEW EXAM RADIOLOGY REPORT [...] kidney cancer at age 64. LOCATION: [facility] BREAST COMPOSITION: Heterogeneously dense,which may obscure small [...] Tang MD on 06/04/2022 at 14:03 Normal [facility] PROF 14(COMP METB)on 023 Albumin [Mass/Vol] 4.0 g/dL Normal 3.4-5.0 [facility] Comment on above: Performed By: #### T MACKENZIE, CMP #### [facility] [address] [place] [address] Dr. Jacob Mcdaniel Albumin/Globulin [Mass ratio] 1.2 {ratio} Normal [facility] Comment on above: Performed By: #### T MACKENZIE, CMP #### [facility] [address] [place] [address] Dr. Jacob Mcdaniel ALP [Catalytic activity/Vol] 69 U/L Normal 46-116 [facility] Comment on above: Performed By: #### T MACKENZIE, CMP #### [facility] [address] [place] [address] Dr. Jacob Mcdaniel ALT [Catalytic activity/Vol] 40 U/L Normal 14-59 [facility] Comment on above: Performed By: #### T MACKENZIE, CMP #### [facility] [address] [place] [address] Dr. Jacob Mcdaniel Anion gap [Moles/Vol] 12.1 mmol/L Normal [facility] Comment on above: Performed By: #### T MACKENZIE, CMP #### [facility] [address] [place] [address] Dr. Jacob Mcdaniel AST [Catalytic activity/Vol] 21 U/L Normal 15-37 [facility] Comment on above: Performed By: #### T MACKENZIE, CMP #### [facility] [address] [place] [address] Dr. Jacob Mcdaniel Bilirubin [Mass/Vol] 0.8 mg/dL Normal 0.2-1.0 [facility] Comment on above: Performed By: #### T MACKENZIE, CMP #### [facility] [address] [place] [address] Dr. Jacob Mcdaniel Calcium [Mass/Vol] 9.5 mg/dL Normal 8.5-10.1 [facility] Comment on above: Performed By: #### T MACKENZIE, CMP #### [facility] [address] [place] [address] Dr. Jacob Mcdaniel Chloride [Moles/Vol] 103 mmol/L Normal 98-107 [facility] Comment on above: Performed By: #### T SH, CMP #### [facility] [address] [place] [address] Dr. Jacob Mcdaniel CO2 [Moles/Vol] 31.9 mmol/L Normal 21.0-32.0 [facility] Comment on above: Performed By: #### T SH, CMP #### [facility] [address] [place] [address] Dr. Jacob Mcdaniel Creatinine [Mass/Vol] 0.84 mg/dL Normal 0.55-1.02 [facility] Comment on above: Performed By: #### T MACKENZIE, CMP #### [facility] [address] [place] [address] Dr. Jacob Mcdaniel EGFR-AF BULGARIAN >60 Normal >=60 [facility] Comment on above: Performed By: #### T MACKENZIE, CMP #### [facility] [address] [place] [address] Dr. Jacob Mcdaniel EGFR-NON AF BULGARIAN >60 Normal >=60 [facility] Comment on above: Performed By: #### T SH, CMP #### [facility] [address] [place] [address] Dr. Jacob Mcdaniel Globulin (S) [Mass/Vol] 3.4 g/dL Normal [facility] Comment on above: Performed By: #### T MACKENZIE, CMP #### [facility] [address] [place] [address] Dr. Jacob Mcdaniel Glucose [Mass/Vol] 105 mg/dL Normal 74-106 [facility] Comment on above: Performed By: #### T SH, CMP #### [facility] [address] [place] [address] Dr. Jacob Mcdaniel Potassium [Moles/Vol] 4.0 mmol/L Normal 3.5-5.1 [facility] Comment on above: Performed By: #### T SH, CMP #### [facility] [address] [place] [address] Dr. Jacob Mcdaniel Protein [Mass/Vol] 7.4 g/dL Normal 6.4-8.2 [facility] Comment on above: Performed By: #### T MACKENZIE, CMP #### [facility] [address] [address] [address] Jacob Mcdaniel Sodium [Moles/Vol] 143 mmol/L Normal 136-145 [facility] Comment on above: Performed By: #### T MACKENZIE, CMP #### [facility] [address] [address] [address] Jacob Mcdaniel Urea nitrogen [Mass/Vol] 12.0 mg/dL Normal 7.0-18.0 [facility] Comment on above: Performed By: #### T MACKENZIE, CMP #### [facility] [address] [address] [address] Jacob Mcdaniel Urea nitrogen/Creatinin e [Mass ratio] 14.3 mg/mg Normal [facility] Comment on above: Performed By: #### T MACKENZIE, CMP #### [facility] [address] [address] [address] Jacob Mcdaniel TSHon 06-04-2022 TSH 0.619 uIU/mL Normal 0.358-3.740 [facility] Comment on above: Performed By: #### T MACKENZIE, CMP ####[facility] [id number] [address]Dr. Jacob Mcdaniel VIT B12 AND FOLATEon 023 Cobalamin (Vitamin B12) [Mass/Vol] 396.0 pg/mL Normal 193.0-986.0 [facility] Comment on above: Performed By: #### B 12FOL ####[facility] [id number] [id number] Mcdaniel FOLATE 9.30 ng/mL Normal 8.60-58.90 [facility] Comment on above: Performed By: #### B 12FOL ####[facility] [id number] [id number][address] Jacob Mcdaniel XR DEXA BONE DENSITYon 06-04 [...] by: FRANK MONROY Date: 2022-06-04 13:14 Normal [facility] XR CSPINE 2_3 VIEWSon 2022 XR CSPINE [...] by: LIZBETH TANG Date: 2022-05-30 13:58 Normal [facility] PAP ACOG PANEL 2: 30 to 65on 01-29-2022 . . Normal [facility] Comment on above: Result Comment: Perf ormed at: BA Performed By: #### [id number] #### [facility] [address] [address] [address] Jacob Mcdaniel Age Gdln ACOG Testing 30-65 Normal [facility] Comment on above: Performed By: #### [id number] #### [facility] [address] [place] [address] Dr. Jacob Mcdaniel DIAGNOSIS: Comment Normal [facility] Comment on above: Result Comment: NEGA TIVE FOR INTRAEPITHELIAL LESION OR MALIGNANCY. CELLULAR CHANGES ASSOCIATED WITH ATROPHY AND INFLAMMATION ARE PRESENT. Performed at: BA Performed By: #### [id number] #### [facility] [address] [place] [address] Dr. Jacob Mcdaniel HPV Aptima Negative Normal Negative [facility] Comment on above: Result Comment: This nucleic acid amplification test detects fourteen high-risk HPV types (16,18,31,33,35,39,45,51,52,56,58,59,66,68) without differentiation. Performed at: =G Performed By: #### [id number] #### [facility] [address] [place] [address] Dr. Jacob Mcdaniel Methodology: Comment Normal [facility] Comment on above: Result Comment: This liquid based ThinPrep(R) pap test was screened with the use of an image guided system. Performed at: WB Performed By: #### [id number] #### [facility] [address] [place] [address] Dr. Jacob Mcdaniel Note: Comment Normal [facility] Comment on above: Result Comment: The Pap smear is a screening test designed to aid in the detection of premalignant and malignant conditions of the uterine cervix. It is not a diagnostic procedure and should not be used as the sole means of detecting cervical cancer. Both false-positive and false-negative reports do occur. . Performed at: WB Performed By: #### [id number] #### [facility] [address] [place] [address] Dr. Jacob Mcdaniel Performed by: Comment Normal [facility] Comment on above: Result Comment: Codey Lorenzo, Drug Abuse Resistance Education Officer (ASCP) Performed at: BA Performed By: #### [id number] #### [facility] [address] [place] [address] Dr. Jacob Mcdaniel Specimen adequacy: Comment Normal [facility] Comment on above: Result Comment: Sati sfactory for evaluation. Endocervical and/or squamous metaplastic cells (endocervical component) are present. Performed at: BA Performed By: #### [id number] #### [facility] [address] [place] [address] Dr. Jacob Mcdaniel AMYLASEon 09-25-2021 Amylase [Catalytic activity/Vol] 40 U/L Normal 25-115 [facility] Comment on above: Performed By: #### C MP, YOLIE, LIPA ####[facility] [address] [address]Dr. Jacob Jonas CBC AUTO DIFFon 09-25-2021 BASO # 0.0 103/ul Normal 0.0-0.1 [facility] Comment on above: Performed By: #### C BC ####[facility] [address] [place], [place] [address]Dr. Jacob Mcdaniel Basophils/100 WBC (Bld) 0.6 % Normal 0.2-2.0 [facility] Comment on above: Performed By: #### C BC ####[facility] [address] [place], [place] [address]Dr. Jacob Mcdaniel EO # 0.1 103/ul Normal 0.0-0.7 [facility] Comment on above: Performed By: #### C BC ####[facility] [id number] [place], [place] [address]Dr. Jacob Mcdaniel Eosinophils/100 WBC (Bld) 1.5 % Normal 0.9-7.0 [facility] Comment on above: Performed By: #### C BC ####[facility] [id number] [place], [place] [address]Dr. Jacob Mcdaniel Erythrocyte distribution width (RBC) [Ratio] 12.2 % Normal 11.0-15.0 [facility] Comment on above: Performed By: #### C BC ####[facility] [address] [place], [place] [address]Dr. aJcob Mcdaniel Hematocrit (Bld) [Volume fraction] 41.6 % Normal 36.0-48.0 [facility] Comment on above: Performed By: #### C BC ####[facility] Uxhzptwuog[address] [place], [place] [address]Dr. Jacob Mcdaniel Hemoglobin (Bld) [Mass/Vol] 13.8 g/dL Normal 12.0-16.0 [facility] Comment on above: Performed By: #### C BC ####[facility] F[address]qz[address] [place], [place] [id number]. Jacob Mcdaniel IG # 0.01 10e3/ul Normal 0.00-0.03 [facility] Comment on above: Performed By: #### C BC ####[facility] [address] [place] [address]Dr. Jacob Mcdaniel IG % 0.1 % Normal 0.0-0.5 [facility] Comment on above: Performed By: #### C BC ####[facility] [address]zz[address] [place] [address]DrDoron Mcdaniel LYMPH # 2.8 103/ul Normal 1.2-3.8 [facility] Comment on above: Performed By: #### C BC ####[facility] Tagduhjbba[address] [place], [place] [address]DrDoron Mcdaniel Lymphocytes/100 WBC (Bld) 40.1 % Normal 20.5-60.0 [facility] Comment on above: Performed By: #### C BC ####[facility] Infbnbtzlb[address] [place], [place] [address]DrDoron Mcdaniel MANUAL DIFF REQ NO Normal [facility] Comment on above: Performed By: #### C BC ####[facility] Ebnuporubr[address] [place], [place] [address]DrDoron Mcdaniel MCH (RBC) [Entitic mass] 30.1 pg Normal 26.7-34.0 [facility] Comment on above: Performed By: #### C BC ####[facility] Zjpvqhnsye[address] [place], [place] [address]DrDoron Mcdaniel MCHC (RBC) [Mass/Vol] 33.2 g/dL Normal 29.9-35.2 [facility] Comment on above: Performed By: #### C BC ####[facility] Hpawivxf[address] [place], [place] [address]DrDoron Mcdaniel MCV (RBC) [Entitic vol] 90.6 fL Normal 81.0-99.0 [facility] Comment on above: Performed By: #### C BC ####[facility] Xvvoetxw[address] [place], [place] [address]DrDoron Mcdaniel MONO # 0.5 103/ul Normal 0.3-0.8 [facility] Comment on above: Performed By: #### C BC ####[facility] [address] [place] [address]Dr. Jacob Mcdaniel Monocytes/100 WBC (Bld) 6.9 % Normal 1.7-12.0 [facility] Comment on above: Performed By: #### C BC ####[facility] [address] [place] [address]Dr. Jacob Mcdaniel NEUT # 3.5 103/ul Normal 1.4-6.5 [facility] Comment on above: Performed By: #### C BC ####[facility] [address] [place] [address]Dr. Jacob Mcdaniel Neutrophils/100 WBC (Bld) 50.8 % Normal 43.0-75.0 [facility] Comment on above: Performed By: #### C BC ####[facility] Ngdnghfx[address] [place], [place] [address]Dr. Jacob Mcdaniel Platelet mean volume (Bld) [Entitic vol] 9.1 fL Critically low 9.5-13.5 [facility] Comment on above: Performed By: #### C BC ####[facility] [address] [place] [address]Dr. Jacob Mcdaniel PLT 279 103/ul Normal 150-450 [facility] Comment on above: Performed By: #### C BC ####[facility] [address] [place] [id number]. Jacob Mcdaniel RBC 4.59 106/ul Normal 4.20-5.40 [facility] Comment on above: Performed By: #### C BC ####[facility] [address] [place] [id number]. Jacob Mcdaniel WBC 6.9 103/ul Normal 4.0-11.0 [facility] Comment on above: Performed By: #### C BC ####[facility] [address] [place] [address]Dr. Jacob Mcdaniel CT ABD/PELVIS WO CONon 09-25 [...] PATTI LOPEZ Date: 2021-09-25 18:01 Normal [facility] CULTURE URINEon 09-25-2021 CULTURE URINE Culture Observations : LIGHT GROWTH OF MIXED GENITAL BRANDT. NO POTENTIAL PATHOGENS SEEN. Normal [facility] Comment on above: Performed By: #### U RCX ####[facility] Hscnd[address]umr[address] [place], [place] [address]Dr. Jacob Mcdaniel Covid-19 PCR (CVDTBH)on SARS-CoV-2 (COVID-19) RNA MATT+probe Ql (Unsp spec) Not detected Normal NOT DETECTED [facility] Comment on above: Result Comment: When diagnostic [...] for this test is supported by the Congressional Assistant of Health and Human Service's declaration that [...] be used). Performed By: #### C VDTBH ####[facility] [address] [place] [address]Dr. Jacob Mcdaniel ER URINE PROFILEon 2 Bilirubin Ql (U) Negative Normal NEGATIVE [facility] Comment on above: Performed By: #### E PEG SHAH UMICRO #### [facility] Laboratory [address] [place] [address] Dr. Jacob Mcdaniel Clarity (U) CLEAR Normal CLEAR [facility] Comment on above: Performed By: #### E PEG SHAH UMICRO #### [facility] [address] [address] [address] Jacob Mcdaniel Color (U) LT. YELLOW Normal YELLOW [facility] Comment on above: Performed By: #### E PEG SHAH UMICRO #### [facility] [address] [place] [address] Dr. Jacob Mcdaniel ERUAHD A micrscopic examina tion will be performed if indicated. Normal [facility] Comment on above: Performed By: #### E RUR, PREGU, UMICRO #### [facility] [address] [address] [address] Jacob Mcdaniel Glucose Ql (U) Negative Normal NEGATIVE [facility] Comment on above: Performed By: #### E RUR, PREGU, UMICRO #### [facility] [address] [address] [address] Jacob Mcdaniel Hemoglobin Ql (U) Negative Normal NEGATIVE [facility] Comment on above: Performed By: #### E RUR, PREGU, UMICRO #### [facility] [address] [address] [address] Jacob Mcdaniel Ketones Ql (U) Negative Normal NEGATIVE [facility] Comment on above: Performed By: #### E RUR, PREGU, UMICRO #### [facility] [address] [place] [address] Dr. Jacob Mcdaniel LEUKOCYTES MODERATE Abnormal NEGATIVE [facility] Comment on above: Performed By: #### Brett RUR PREGU, UMICRO #### [facility] [address] [address] [address] Jacob Mcdaniel Nitrite Ql (U) Negative Normal NEGATIVE [facility] Comment on above: Performed By: #### Brett RUR PREGU, UMICRO #### [facility] [address] [address] [address] Jacob Mcdaniel pH (U) 7.0 [pH] Normal 5-9 [facility] Comment on above: Performed By: #### E RUR PREGU, UMICRO #### [facility] [address] [address] [address] Jacob cMdaniel SPEC GRAVITY 1.010 Normal 1.005-<=1.0 25 [facility] Comment on above: Performed By: #### E RUR, PREGU, UMICRO #### [facility] [address] [address] [address] Jacob Mcdaniel UA PROTEIN Negative Normal NEGATIVE/ TRACE [facility] Comment on above: Performed By: #### E RUR, PREGU, UMICRO #### [facility] [address] [address] [address] Jacob Mcdaniel UR MICRO IND INDICATED Normal [facility] Comment on above: Performed By: #### PEG ROJO UMICRO #### [facility] [address] [address] [address] Jacob Mcdaniel Urobilinogen Qn (U) 0.2 {Tessy'U}/dL Normal 0.2 - 1.0 [facility] Comment on above: Performed By: #### PEG ROJO UMICRO #### [facility] [address] [address] [address] Jacob Mcdaniel LIPASEon 09-25-2021 Lipase [Catalytic activity/Vol] 100.0 U/L Normal 73.0-393.0 [facility] Comment on above: Performed By: #### C MP, YOLIE, LIPA ####[facility] [address] [place] [address]DrDoron Mcdaniel URon 09-25-2021 , QUAL Negative Normal NEGATIVE [facility] Comment on above: Performed By: #### PEG ROJO UMICRO #### [facility] [address] [place] [address] Dr. Jacob Mcdaniel PROF 14(COMP METB)on 022 Albumin [Mass/Vol] 3.8 g/dL Normal 3.4-5.0 [facility] Comment on above: Performed By: #### C MP, YOLIE, LIPA ####[facility] [address] [place] [address]DrDoron Mcdaniel Albumin/Globulin [Mass ratio] 1.1 {ratio} Normal [facility] Comment on above: Performed By: #### C MP, YOLIE, LIPA ####[facility] [address] [place] [address]DrDoron Mcdaniel ALP [Catalytic activity/Vol] 76 U/L Normal 46-116 [facility] Comment on above: Performed By: #### C MP, YOLIE, LIPA ####[facility] [address] [place] [address]Dr. Jacob Mcdaniel ALT [Catalytic activity/Vol] 43 U/L Normal 14-59 [facility] Comment on above: Performed By: #### C MPYOLIE, LIPA ####[facility] [address] [place] [address]Dr. Jacob Mcdaniel Anion gap [Moles/Vol] 11.9 mmol/L Normal [facility] Comment on above: Performed By: #### C MP, YOLIE, LIPA ####[facility] [address] [place], [place] [address]Dr. Jacob Mcdaniel AST [Catalytic activity/Vol] 24 U/L Normal 15-37 [facility] Comment on above: Performed By: #### C MP YOLIE, LIPA ####[facility] A[address]xyk[address] [place], [place] [address]Dr. Jacob Mcdaniel Bilirubin [Mass/Vol] 0.3 mg/dL Normal 0.2-1.0 [facility] Comment on above: Performed By: #### C MP, YOLIE, LIPA ####[facility] [address] [place], [place] [address]Dr. Jacob Mcdaniel Calcium [Mass/Vol] 8.6 mg/dL Normal 8.5-10.1 [facility] Comment on above: Performed By: #### C MP, YOLIE, LIPA ####[facility] C[address] [place], [place] [address]Dr. Jacob Mcdaniel Chloride [Moles/Vol] 104 mmol/L Normal 98-107 [facility] Comment on above: Performed By: #### C MP, YOLIE, LIPA ####[facility] [address] [place], [place] [address]Dr. Jacob Mcdaniel CO2 [Moles/Vol] 27.7 mmol/L Normal 21.0-32.0 [facility] Comment on above: Performed By: #### C MP, YOLIE, LIPA ####[facility] Hz[address]cqwvh[address] [place], [place] [address]Dr. Jacob Mcdaniel Creatinine [Mass/Vol] 0.89 mg/dL Normal 0.55-1.02 [facility] Comment on above: Performed By: #### C MP, YOLIE, LIPA ####[facility] [address] [place] [address]Dr. Jacob Mcdaniel EGFR-AF BULGARIAN >60 Normal >=60 [facility] Comment on above: Performed By: #### C MP, YOLIE, LIPA ####[facility] [address] [place] [address]Dr. Jacob Mcdaniel EGFR-NON AF BULGARIAN >60 Normal >=60 [facility] Comment on above: Performed By: #### C MP, YOLIE, LIPA ####[facility] [address] [place] [address]Dr. Jacob Mcdaniel Globulin (S) [Mass/Vol] 3.5 g/dL Normal [facility] Comment on above: Performed By: #### C MP, YOLIE, LIPA ####[facility] [address] [place], [place] [address]Dr. Jacob Mcdaniel Glucose [Mass/Vol] 91 mg/dL Normal 74-106 [facility] Comment on above: Performed By: #### C MP, YOLIE, LIPA ####[facility] Gvrndxxece[address] [place], [place] [address]Dr. Jacob Mcdaniel Potassium [Moles/Vol] 3.6 mmol/L Normal 3.5-5.1 [facility] Comment on above: Performed By: #### C MP, YOLIE, LIPA ####[facility] K[address] [place], [place] [address]Dr. Jacob Mcdaniel Protein [Mass/Vol] 7.3 g/dL Normal 6.4-8.2 [facility] Comment on above: Performed By: #### C MP, YOLIE, LIPA ####[facility] Cy[address] [place], [place] [address]Dr. Jacob Mcdaniel Sodium [Moles/Vol] 140 mmol/L Normal 136-145 [facility] Comment on above: Performed By: #### C MP, YOLIE, LIPA ####[facility] [address]zb[address] [place], [place] [address]Dr. Yilan Mcdaniel Urea nitrogen [Mass/Vol] 14.0 mg/dL Normal 7.0-18.0 [facility] Comment on above: Performed By: #### C YOLIE FAN LIPA ####[facility] [address] [place] [id number]. Jacob Mcdaniel Urea nitrogen/Creatinin e [Mass ratio] 15.7 mg/mg Normal [facility] Comment on above: Performed By: #### C YOLIE FAN LIPA ####[facility] [address] [place] [id number]. Jacob Mcdaniel URINE MICROSCOPIC ONLYon BACTERIA SMALL Abnormal NONE SEEN [facility] Comment on above: Performed By: #### PEG ROJO UMICRO #### [facility] Laboratory [address] [place] [address] Dr. Jacob Mcdaniel Bacteria identified Cx Nom (U) INDICATED Normal [facility] Comment on above: Performed By: #### BIB ROJOU UMICRO #### [facility] [address] [place] [address] Dr. Jacob Mcdaniel CAST NONE SEEN Normal NONE SEEN [facility] Comment on above: Performed By: #### PEG ROJO UMICRO #### [facility] [address] [place] [address] Dr. Jacob Mcdaniel Crystals LM Nom (Urine sed) NONE SEEN Normal NONE SEEN [facility] Comment on above: Performed By: #### Brett SHAH PREGU, UMICRO #### [facility] [address] [address] [address] Jacob Mcdaniel Epithelial cells LM Ql (Urine sed) FEW Abnormal NONE SEEN /RARE [facility] Comment on above: Performed By: #### Brett SHAH PREGU, UMICRO #### [facility] [address] [address] [address] Jacob Mcdaniel MUCOUS NONE SEEN Normal NONE SEEN [facility] Comment on above: Performed By: #### Brett RUTahir PREGU, UMICRO #### [facility] [address] [address] [address] Jacob Mcdaniel RBC NONE SEEN Abnormal 0-2 [facility] Comment on above: Performed By: #### E PEG SHAH UMICRO #### [facility] [address] [address] [address] Jacob Mcdaniel WBC 10-20 Abnormal NONE SEEN [facility] Comment on above: Performed By: #### E PEG SHAH UMICRO #### [facility] [address] [address] [address] Jacob Mcdaniel XR lumbar spine AP/LAT/FLX/E XTon 07-29-2021 XR lumbar spine AP/LAT/FLX/EXT [facility] Main [place] [address] [place] [address] XRay Report Signed Patient: Tiera Wakefield MR#: [id number] 21 : 1970 Acct:[id number] Age/Sex: 50 / F ADM Date: 07/29/21 Loc: XD Room: Type: [facility] Attending Dr: Matteo Person MD [...] Aguilar Jr., D.O.07/29/2021 2:43 PM Dictation Location: [place] [address] Transcribed By: [facility] 07/29/21 1443 Dictated By: Wilson Aguilar Jr, DO 07/29/21 1441 Signed By: 07/29/21 1443 Normal [facility] Operative Reporton 9 Operative Report MR#: [id number] S [facility] Pt. Name: Tiera Wakefield Room #: 0C Discharge Date: Birthdate: 1970 OPERATIVE REPORT DATE OF SURGERY: 12/01/2018 SURGEON: Lizbeth Fleming M.D. PREOPERATIVE DIAGNOSIS: Left shoulder rotator cuff tear. POSTOPERATIVE DIAGNOSIS: Left shoulder rotator cuff tear. HIGHWAY PATROL PILOT: Darinel Bartholomew M.D. ANESTHESIA: General. PROCEDURE PERFORMED: Left shoulder rotator cuff repair. INDICATIONS: The patient is a 48-year-old woman, who had previously had a rotator cuff repair performed by Dr. Melvin in [place]. I reviewed the intraoperative images and it [...] reconstruction. This would be to remove her atka rotator cuff tendon and instead reconstruct with [...] P Lizbeth Fleming M.D. Date Dict: 12/01/2018/11:05 Robert/Lizbeth Fleming M.D. Date Trans: 12/01/2018 11:50 Robert/cory [id number] cc: Gerald Tavares D.O. [address] [place] [address] Normal [facility] POC GLUCOSE LABon 12-01-2018 Glucose [Mass/Vol] 79 mg/dL Normal 70-100 [facility] Comment on above: Performed By: #### 8 [id number] #### [facility] [address] [place] [address] POC URINE PREGNANCYon 2018 Beta HCG ( test) Ql (U) Negative Normal NEGATIVE [facility] Comment on above: Result Comment: Perf ormed in PACU Performed By: #### 8 4140 #### [address] MRI SHOULDER WO CONTRAST LEF Ton 08-18-2018 MRI SHOULDER WO CONTRAST LEFT [facility] Department of Radiology [address] [place] [id number] Patient Name: TIERA WAKEFIELD : 1970 Sex: F Age: Race: White Pt. Location: Patient Status: Ordered Date: 08/10/2018 12:00:00 PM Completed Date: 08/18/2018 07:41 AM Requesting Provider: LIZBETH FLEMING Attending Provider: Report Copy To: Signs & Symptoms: M75.122 Complete rotatr-cuff tear/ruptr of left shoulder, not trauma I10 History: Kaylah, Hardware left shoulder -new number [facility] [id number] / [facility] mirtha howe call ref # [id number] *er Comments: , , , Ordering Provider [...] 10. Electronically signed by:Peggy Winchester. Transcribed by: [id number], User Resident: Electronically Signed by: PEGGY WINCHESTER @ 08/18/2018 10:48 AM Normal [facility] Comment on above: Order Comment: , , = ========= , Ordering Provider - LIZBETH FLEMING MD , JAVIEROVon 03-16-2018 CNOV Office Visit (SPSNAV) -------TIERA WAKEFIELD ([id number]) 1970 FDate Time Provider Iimnrmrjoy25/27/18 2:55 PM Tahir ANN SPSNAV During your [...] I will see her back in onemonth's time.JACEY Ahneferring Provider: ZORAIDA ALMANZAR [[id number]]Allergies As of Date: 03/16/2018 Noted Allergy ReactionASPIRIN 04/07/2014 14 - Other: See CommentsDate Reviewed: 02/18/2018Reviewed by: Christine (Rn) JOLENE Downing - Fully AssessedReason for Visit: [...] FOR* More...Follow-up and Disposition History RecordedEncounter Number: [id number] Status:Closed by Tahir ANN MD on 03/16/18 [facility] PROGRESSon 03-16-2018 Protein mass conc HNO ID: [id number] thor: Tahir AnnService: (none)Author Type: PhysicianType: Progress NotesFiled: 03/16/2018 5:40 [...] fatmata in one month's time.Tahir Ann MD [facility] HISTORY PHYSICALon 8 HISTORY PHYSICAL HNO ID: [id number] thor: Sydney Reyna (Pac) Víctor Hidalgoice: (none)Author Type: Physician AssistantType: HANDPFiled: 02/18/2018 9:35 AMNote Text:LOCAL PROCEDURE HISTORY AND PHYSICAL EXAMSERVICE DATE: 02/18/2018SERVICE TIME: 9:34 AMProvisional Diagnosis/Treatment Plan: lumbar disc herniation/Right [id number]: This is a 47 year old female [...] TFESISIGNATURE: Sydney Hidalgo PA-C PATIENT NAME: Tiera MagallonATE: February 18, 2018 : 9:34 AM PAGER: [phone] [facility] NURSING PROGon 02-18-2018 Protein mass conc HNO ID: [id number] thor: Christine (Rn) Bharat Downingice: (none)Author Type: Registered NurseType: Nursing Progress NoteFiled: 02/18/2018 9:54 AMNote Text: Nursing Progress NotePatient Name: Tiera SunshineRN: [id number] Location: AV Endo/AV Endo Daily Note: 0946 - Pt arrived to post op awake, oriented x 3. Pt statespain has gone from 10/10 to 6/10 to right leg. Pt still having numbnessto right leg. Pedal push/pulls equal and strong. vSSThis note was completed by: Christine Downing RN [facility] OPERATIVE NOon 02-18-2018 OPERATIVE NO HNO ID: [id number] thor: Zoraida Fine: (none)Author Type: PhysicianType: Operative ReportFiled: 02/18/2018 9:44 AMNote Text:Pt presents for f/u. Continues to have Rt leg pain. Appearsuncomfortable, seen by Dr. Ann for surgical eval. Wants to proceed withan injection today to address the presenting symptoms. Consent obtained.Rt side was marked in the pre-op area. Pt is aware of risks, benefits,alternatives, expected outcome, equipment and personnel.[facility] approved time out was performed identifying the site, side and levelof procedure prior to start of procedure.[facility] - ELECTIVE PROCEDURELumbar Transforaminal Epidural Steroid Injection [...] I performed theentire procedure.Zoraida Almanzar DO, MBA [facility] PT EDon 02-18-2018 PT ED HNO ID: [id number] thor: Christine (Rn) LAQUITA Downingervice: (none)Author Type: Registered NurseType: Patient EducationFiled: 02/18/2018 9:58 AMNote Text:POST OP LEARNING RESPONSEINSTRUCTION PROVIDED TO: PatientMETHOD OF INSTRUCTION: Written instruction - handoutsVerbal instructionPATIENT / FAMILY RESPONSE: Verbalizes understanding of: POST-PROCEDUREINSTRUCTIONS- Correct actions to take to reduce post procedurecomplicationsFOLLO W-UP PLAN: Complete - No need for follow-upSUPPLEMENTAL MATERIAL: NoneREFERRAL (RECOMMENDATION): NoneElectronically Signed By: Christine Downing RN In Department: PROCEDURES [facility] PT ED HNO ID: [id number] thor: Keley (Rn) LAQUITA Dominguezervice: NursingAuthor Type: Registered NurseType: Patient EducationFiled: 02/18/2018 9:28 AMNote Text:PRE OP LEARNING ASSESSMENTPROCEDURE/SURGERY : PAIN MANAGEMENT: lumbar epiduralREADINESS TO LEARNCOGNITIVE ABILITY: Alert and orientedMOTIVATION TO LEARN: InterestedFAMILY SUPPORT: High - Very involved in pt carePATIENT LEARNS BEST BY: Individual InstructionVerbal InstructionFACTORS AFFECTING LEARNING: NonePHYSICAL LIMITATIONS AFFECTING LEARNING: NoneElectronically Signed By: Keely Dominguez RN [facility] OV Office Visit (SPSNAV) -------TIEAR WAKEFIELD ([id number]) 1970 FDate Time Provider Prefowqgvs63/30/18 1:55 PM Tahir ANN SPSNAV During your visit today, we recorded the following information about you:Tahir Ann MD 02/16/2018 5:11 PM SignedSPINE SURGERY NEW PATIENTPCP: No primary care provider on file.REFERRING PROVIDER: Dr Shabbir AlmanzarSUBJECTIVEHISTORY OF PRESENT ILLNESS:Tiera Wakefield is a 47 [...] is greater than in the backDERMATOMAL DISTRIBUTION:Right: [id number] STATUS: Minimal Ambulation/Wheelchair BoundANTIPLATELET OR ANTICOAGULATION STATUS: [...] suddenly. Her MRI shows a large extruded L5-B2cwulowjn.I think there is a high chance that this will resolve spontaneously withnonoperative care. To manage her symptoms in the short term she may benefitfrom an epidural injection. I will see her back in one month's time.Greg Ahnhuntington hospitalerum Provider: ZORAIDA ALMANZAR [[id number]]Allergies As of Date: 02/16/2018 Noted Allergy ReactionASPIRIN [...] Status:Closed by Tahir ANN MD on 02/16/18 [facility] 02-16-2018 [facility] Telephone (NIQ) ----TIERA WAKEFIELD ([id number]) 1970 FDate Time Provider Yhskqiohuy01/30/18 ZORAIDA ALMANZAR NIQ During your visit today, we recorded the following information about you:Lisa Elizabeth 02/16/2018 1:54 PM SignedPt at check out scheduled for injection on 02/18/[address] Almanzar at 9AMRight L5-S1 TFESI-DM/-Lynn sign Ermelinda Barajasa 02/16/2018 2:49 PM SignedESR DONETracy C Veronica 02/16/2018 2:51 PM SignedEsr doneAllergies As of Date: 02/16/2018 Noted Allergy ReactionASPIRIN 04/07/2014 14 - Other: See CommentsDate Reviewed: 02/15/2018Reviewed by: Zoraida Almanzar - Fully AssessedReason for Visit: Tranforaminal Epidural Steroid Injection [1061]Order(s):SURGICAL REQUEST - ELECTIVE [[id number]] Order #: [id number]: 1Prescriptions as of 02/16/2018 Sig: FLUTICASONE 100 MCG-SALMETERO* Advair Diskus 100 mcg-50 mcg/* ALBUTEROL SULFATE 2.5 MG/3 ML* albuterol sulfate 2.5 mg/3 mL* BACLOFEN 10 MG TABLET CITALOPRAM 20 MG TABLET citalopram 20 mg tablet METHYLPREDNISOLONE 4 MG TABLE* METHYLPREDNISOLONE 4 MG TABLE* methylprednisolone 4 mg table*Problem List As Of Date 02/16/2018 Noted Resolved Lumbar disc herniation [M51.26] INVALID FOR* More... Status:Closed by KANDY ESCOBAR on 02/16/18 [facility] HOSP 02-16-2018 HOSP Patient:Aissatou Wakefield AMRN: Height:5' 3 [...] the following basenames: K,HCTProgress Notes (SPINE MED [facility] REJ):Elaine Woodson, RN, RN 02/16/2018 4:33 PM SignedPatient Valerie Rosales is scheduled for an epidural injection sking for pain medication for relief prior to injectionReturn call to [phone] Griffin LPN 02/17/2018 9:21 AM SignedThe prescription you requested has been called in to Dr Tracy dejesus at [facility] to pt and advised.Pt verbalized understanding.[facility] Notes ([facility]):Lisa Elizabeth 02/16/2018 1:54 PM SignedPt at check out scheduled for injection on 02/18/[address] Almanzar at 9AMRight L5-S1 TFESI-DM/-ThinWill sign waiverTracy Landen Veronica 02/16/2018 2:49 PM SignedESR DONETracy C Veronica 02/16/2018 2:51 PM SignedEsr done Normal [facility] PROGRESSon 02-16-2018 Protein mass conc HNO ID: [id number] thor: Tahir Phillips: (none)Author Type: PhysicianType: Progress [...] her back in one month'stime.Tahir Ann MD [facility] Protein mass conc HNO ID: [id number] thor: Tahir Phillips: (none)Author Type: PhysicianType: Progress NotesFiled: 02/16/2018 5:11 PMNote Text:SPINE SURGERY NEW PATIENTPCP: No primary care provider on file.REFERRING PROVIDER: Dr Shabbir AlmanzarSUBJECTIVEHISTORY OF PRESENT ILLNESS:Tiera Wakefield is a 47 [...] is greater than in the backDERMATOMAL DISTRIBUTION:Right: [id number] STATUS: Minimal Ambulation/Wheelchair BoundANTIPLATELET OR ANTICOAGULATION STATUS: [...] 16, 2018 : 1:15 PM PAGER: Tyrell [facility] CNOVon 02-15-2018 CNOV Office Visit (SPNMAV) -------TWYLATIERA ([id number]) 1970 [facility] Time Provider Rrtarxjrbt39/29/18 1:20 PM ZORAIDA ALMANZAR SPNMAV During your [...] side. [place] been [place] in [place] in [place] numer[place]imes over past week.Other Issues Addressed at [...] Official reports pending.Loss of disc ht at L5/v3ADCZMTXXRN:See diagnosis.PLAN:Discussed various options including non-surgical and surgical [...] right-sided sciatica [M54.41]Order(s):MRI LUMBAR SPINE WO IVCON [[id number]] Order #: [id number] FUTURE CONSULT TO SPINE SURGERY [[id number]] Order #: [id number]: 1Prescriptions as of 02/15/2018 Sig: FLUTICASONE 100 MCG-SALMETERO* Advair Diskus 100 mcg-50 mcg/* ALBUTEROL SULFATE 2.5 MG/3 ML* albuterol sulfate 2.5 mg/3 mL* BACLOFEN 10 MG TABLET CITALOPRAM 20 MG TABLET citalopram 20 mg tablet METHYLPREDNISOLONE 4 MG TABLE* METHYLPREDNISOLONE 4 MG TABLE* methylprednisolone 4 mg table*Problem List As Of Date: 02/15/2018(None) Status:Closed by ZORAIDA ALMANZAR DO on 02/15/18 Normal [facility] MRI LUMBAR SPINE WO IVCONon 02-15-2018 MRI LUMBAR SPINE WO IVCON * * *Final Report* * *DATE OF EXAM: Feb 15 2018 5:23PM [facility] 0303 - MRI LUMBAR SPINE WO IVCON [...] crest and assume there are 5 lumbar-type vertebrae.Laborer Laboratory: [facility] Transcribe Date/Time: Feb 15 2018 5:30PDictated by : GERALD MARK MDThis examination was interpreted and the report reviewed and electronically signed by: GERALD MARK MD on Feb 15 2018 5:35PM [id number] [facility] PROGRESSon 02-15-2018 Protein mass conc HNO ID: [id number] thor: Zoraida Fine: (none)Author Type: PhysicianType: Progress [...] sitting. Somewhat better when lying on side. Kemar seen in ED in [place] numerous times over past week.Other Issues Addressed [...] Official reports pending.Loss of disc ht at L5/k2TLSORBVMIQ:See diagnosis.PLAN:Discussed various options including non-surgical and surgical [...] todays visit will be forwarded to consulting/requestingphysic Sally Almanzar DO, MBA Normal [facility] SR-XR Spine Lumbosacral 2 or 3 Views IMPORTon 02-12-2018 SR-XR Spine Lumbosacral 2 or 3 Views IMPORT Images were obtained outside of [employer] [id number] Normal [facility] Vital Signs Date Time Vital Sign Value Performing Clinician Facility 11-16-2023 15:55-0400 Body height 161.29 cm [facility] 11-16-2023 15:55-0400 Body mass index (BMI) [Ratio] 28.4 kg/m2 [facility] 11-16-2023 15:55-0400 Body temperature 98.4 [degF] [facility] 11-16-2023 15:55-0400 Body weight 73.93 kg [facility] 11-16-2023 15:55-0400 Heart rate 63 /min [facility] 11-16-2023 15:55-0400 Respiratory rate 18 /min [facility] 11-16-2023 15:55-0400 SaO2% (BldA) [Mass fraction] 98 % [facility] 08-04-2023 14:46-0400 Blood Pressure Location Anna Sonya [facility] 08-04-2023 14:46-0400 Body temperature 97.52 [degF] Anna Hassan [facility] 08-04-2023 14:46-0400 Diastolic blood pressure 70 mm[Hg] Anna Hassan [facility] 08-04-2023 14:46-0400 Heart rate 84 /min Anna Hassan [facility] 08-04-2023 14:46-0400 Systolic blood pressure 113 mm[Hg] Anna Hassan [facility] 05-19-2023 08:50-0500 Blood Pressure Location Anna Hassan [facility] 05-19-2023 08:50-0500 Body temperature 96.8 [degF] Anna Hassan [facility] 05-19-2023 08:50-0500 Diastolic blood pressure 76 mm[Hg] Anna Hassan [facility] 05-19-2023 08:50-0500 Heart rate 62 /min Anna Hassan [facility] 05-19-2023 08:50-0500 Systolic blood pressure 120 mm[Hg] Anna Hassan [facility] 02-18-2023 10:30-0400 Body height 161.29 cm Christina Nan Other [facility] Other 02-18-2023 10:30-0400 Body mass index (BMI) [Ratio] 27.9 kg/m2 Christina Nan Other [facility] 02-18-2023 10:30-0400 Body temperature 98.2 [degF] Christina Nan Other [facility] Other 02-18-2023 10:30-0400 Body weight 72.58 kg Christina Nan Other [facility] Other 02-18-2023 10:30-0400 Diastolic blood pressure 78 mm[Hg] Christina Nan Other [facility] Other 02-18-2023 10:30-0400 Respiratory rate 18 /min Christina Nan Other [facility] Other 02-18-2023 10:30-0400 SaO2% (BldA) [Mass fraction] 98 % Christina Nan Other [facility] Other 02-18-2023 10:30-0400 Systolic blood pressure 134 mm[Hg] Christina Nan Other [facility] Other 12-20-2022 11:40-0400 Body height 161.29 cm Christina Nan Other [facility] Other 12-20-2022 11:40-0400 Body mass index (BMI) [Ratio] 27.55 kg/m2 Christina Nan Other [facility] Other 12-20-2022 11:40-0400 Body temperature 97 [degF] Christina Nan Other [facility] Other 12-20-2022 11:40-0400 Body weight 71.67 kg Christina Nan Other [facility] Other 12-20-2022 11:40-0400 Diastolic blood pressure 79 mm[Hg] Christina Nan Other [facility] Other 12-20-2022 11:40-0400 SaO2% (BldA) [Mass fraction] 98 % Christina Nan Other [facility] Other 12-20-2022 11:40-0400 Systolic blood pressure 142 mm[Hg] Christina Nan Other [facility] [employer] Other 11-17-2022 15:48-0400 Blood Pressure Location Anna Hassan [facility] 11-17-2022 15:48-0400 Body temperature 97.16 [degF] Anna Hassan [facility] 11-17-2022 15:48-0400 Diastolic blood pressure 75 mm[Hg] Anna Hassan [facility] 11-17-2022 15:48-0400 Heart rate 63 /min Anna Hassan [facility] 11-17-2022 15:48-0400 Systolic blood pressure 124 mm[Hg] Anna Hassan [facility] 07-26-2021 11:45-0400 Body height 161.29 cm Matteo Raza Other [facility] Other 07-26-2021 11:45-0400 Body mass index (BMI) [Ratio] 28.94 kg/m2 Matteo Raza Other [facility] Other 07-26-2021 11:45-0400 Body weight 75.3 kg Matteo Person Other [facility] Other 07-26-2021 11:45-0400 Diastolic blood pressure 80 mm[Hg] Matteo Person Other [facility] Other 07-26-2021 11:45-0400 SaO2% (BldA) [Mass fraction] 99 % Matteo Person Other [facility] Other 07-26-2021 11:45-0400 Systolic blood pressure 120 mm[Hg] Matteo Person Other [facility] [employer] Other Encounters Encounter Date Encounter Type Care Provider Facility Start: 11-16-2023 End: 11-16-2023 ambulatory [facility] Work Phone: Start: 11-16-2023 End: 11-16-2023 Patient encounter procedure [facility] Physician [facility] Work Phone: Start: 09-07-2023 End: 09-08-2023 ambulatory [facility] Start: 09-07-2023 End: 09-07-2023 Patient encounter procedure Elina Boyer [facility] Start: 08-04-2023 End: 08-05-2023 ambulatory Anna A Sonya Facility:[facility] Start: 08-04-2023 End: 08-04-2023 Patient encounter procedure Anna A Sonya [facility] Start: 07-14-2023 End: 07-14-2023 Lab Drop off Castro Talal Sarmini [facility] Start: 07-14-2023 End: 07-15-2023 ambulatory Castro Talal Sarmini [facility] Start: 05-19-2023 End: 05-20-2023 ambulatory Anna A Sonya Facility:[facility] Start: 05-19-2023 End: 05-19-2023 Patient encounter procedure Anna A Sonya [facility] Start: 05-12-2023 End: 05-12-2023 Lab Drop off Castro Talal Sarmini [facility] Start: 05-12-2023 End: 05-13-2023 ambulatory Matthew Carrasco [facility] Start: 04-27-2023 End: 04-28-2023 [facility]ulatory [facility] Start: 04-27-2023 End: 04-27-2023 ambulatory YOLIE FORRESTER Not Available Start: 02-18-2023 End: 02-18-2023 ambulatory Christina Nan Other [facility] Other Start: 02-18-2023 Office outpatient vi sit 15 minutes Christina Nan [facility] Start: 12-20-2022 End: 12-20-2022 ambulatory Christina Nan Other [facility] Other Start: 12-20-2022 Office outpatient vi sit 15 minutes Christina Nan [facility] Start: 12-01-2022 End: 12-02-2022 ambulatory Annaangely Mcdonoughz Facility[facility] Start: 12-01-2022 End: 12-01-2022 Patient encounter procedure Anna A Sonya [facility] Start: 11-17-2022 End: 11-18-2022 ambulatory Anna A Sonya Facility:[facility] Start: 11-17-2022 End: 11-17-2022 Patient encounter procedure Anna A Sonya [facility] Start: 07-18-2022 End: 07-18-2022 Patient encounter procedure Anna A Sonya [facility] Start: 06-05-2022 Encounter for genera l adult medical examination without abnormal findings DR GERALD TAVARES [facility] Start: 06-04-2022 End: 06-05-[address] YANELY [...] Center Start: 08-22-2021 End: 08-22-2021 ambulatory Matteo Person Other [facility] Other Start: 08-12-2021 End: 08-12-2021 ambulatory Matteo Person Other [facility] Other Start: 08-12-2021 Telephone encounter Matteo Raza [facility] Start: 07-30-2021 End: 07-30-2021 ambulatory Matteo Raza Other [facility] Other Start: 07-30-2021 Telephone encounter Matteo Raza [facility] Start: 07-26-2021 End: 07-26-2021 ambulatory Matteo Person Other [facility] Other Start: 07-26-2021 Office outpatient vi sit 25 minutes Matteo Raza [facility] [place] Start: 12-01-2018 End: 12-02-2018 Patient encounter procedure LIZBETH FLEMING Facility:[facility] Start: 03-16-2018 End: 03-17-2018 Patient encounter procedure Tahir ANN [facility] Start: 02-18-2018 End: 02-18-[address] [facility] Start: 02-16-2018 End: 02-17-2018 Patient encounter procedure Tahir ANN [facility] Start: 02-15-2018 Patient encounter procedure ZORAIDA Jones [facility] Start: 02-15-2018 End: 02-15-2018 Patient encounter procedure ZORAIDA ALMANZAR [facility] Procedures Date Procedure Procedure Detail Performing Clinician Start: 05-02-2021 Colonoscopy Anna Hassan Start: 12-01-2018 ANESTH SURGERY OF SHOULDER EDISONAngely Jones Start: 12-01-2018 Arthroscopy shoulder rotator cuff repair LIZBETH FLEMING Anxiety disorder (disorder) Anna Hassan Arthroscopy of knee Annaangely Nolan Cholecystectomy Anna yee Colonoscopy Anna Hassan Dilation and curettage of [...] and de pressive disorder (disorder) Anna Hassan Plan of Treatment Date Care Activity Detail Author [facility] Immunizations Immunization Date Immunization Notes Care Provider Olga Lidia holcomb 03-18-2021 SARS-CoV-2 (COVID-19 ) mRNA BNT-162b2 vax Anna Hassan [facility] Comment on above: Result Comment: 2022: [id number] 05-14-2012 hepatitis A vaccine, adult dosage Anna Hassan [facility] 05-14-2012 hepatitis B vaccine, pediatric or pediatric/adolescent dosage Anna Hassan [facility] NEGATED: Highlighted row has not occurred!05-18-2023 influenza virus vaccine, unspecified formulation Anna Hassan [facility] NEGATED: Highlighted row has not occurred!04-24-2023 influenza virus vaccine, unspecified formulation Castro Indianamini [facility] NEGATED: Highlighted row has not occurred!02-27-2021 influenza virus vaccine, unspecified formulation Anna Hassan [facility] Payers Date Payer Category Payer Unknown [id number] 1970 Unknown [id number] 2.16.8 [id number] 1970 Unknown [id number] 2.16.84 [id number] 1970 Unknown [id number] 2.16.84 0.1.710600.3.579.2.593 1970 Unknown [id number] 2.16.84 0.1.569273.3.579.2.593 1970 Unknown [id number] 2.16.84 0.1.394294.3.579.2.593 1970 Unknown [id number] 2.16.84 0.1.169023.3.579.2.593 1970 Unknown [id number] 2.16.840 .1.488455.3.579.2.1259 1970 Unknown [id number] 2.16.8 40.1.076116.3.579.2.727 1970 Unknown [id number] 2.16.8 40.1.254094.3.579.2.727 1970 Unknown [id number] 2.16.8 40.1.461747.3.579.2.727 1970 Unknown [id number] 2.16.8 40.1.807544.3.579.2.727 1970 Unknown [id number] 2.16.8 40.1.938238.3.579.2.727 1970 Unknown [id number] 2.16.8 40.1.132819.3.579.2.727 1970 Unknown [id number] 2.16.8 40.1.071600.3.579.2.727 1970 Unknown [id number] 2.16.8 40.1.849819.3.579.2.727 1970 Unknown [id number] 2.16.8 40.1.618676.3.579.2.727 1970 Unknown [id number] 2.16.8 40.1.027674.3.579.2.727 1960 [facility] [id number] Self-pay Self Pay [id number] Unknown [id number] Social History Date Type Detail Facility Sex Assigned At [facility] Start: 05-02-2021 End: 11-16-2023 Tobacco smoking status Ex-smoker (finding) [facility] Comment on above: denies Tobacco smoking status Never [facility] Start: 1970 Sex Assigned At Female F [facility] Functional Status Date Assessment Result Facility 08-04-2023 Functional Status N/A [facility] 05-19-2023 Functional Status N/A [facility] 11-17-2022 Functional Status N/A [facility] Clinical Notes 07-26-2021 to 08-04-2023 Laboratory Note Date & Type Note Facility 08-04-2023 Hospital Discharge instructions Patient Education 08/04/2023 14:48:11 Austin's Esophagus Austin's Esophagus Austin's esophagus occurs when the tissue that lines the esophagus changes or becomes damaged. The esophagus is the tube that carries food from the throat to the stomach. With Austin's esophagus, the cells that line the esophagus are replaced by cells that are similar to the lining of the intestines (intestinal metaplasia). Austin's esophagus itself may not cause any symptoms. However, many people who have Austin's esophagus also have gastroesophageal reflux disease (GERD), which may cause symptoms such as heartburn. Over time, a few people with this condition may develop cancer of the esophagus. Treatment may include medicines, procedures to destroy the abnormal cells, or surgery. What are the causes? The exact cause of this condition is not known. In some cases, the condition develops from damage to the lining of the esophagus caused by gastroesophageal reflux disease (GERD). GERD occurs when stomach acids flow up from the stomach into the esophagus. Frequent symptoms of GERD may cause intestinal metaplasia or cause cell changes (dysplasia). What increases the risk? You are more likely to develop this condition if you: Have GERD. Are male. Are of descent. Are obese. Are older than 50. Have a hiatal hernia. This is a condition in which part of your stomach bulges into your chest. Smoke. What are the signs or symptoms? People with Austin's esophagus often have no symptoms. However, many people with this condition also have GERD. Symptoms of GERD may include: Heartburn. Difficulty swallowing. Dry cough. How is this diagnosed? This condition may be diagnosed based on: Results of an upper gastrointestinal endoscopy. For this exam, a thin, flexible tube with a light and a camera on the end (endoscope) is passed down your esophagus. Your health care provider can view the inside of your esophagus during this procedure. Results of a biopsy. For this procedure, several tissue samples are removed (biopsy) from your esophagus to look at under a microscope. They are then checked for intestinal metaplasia or dysplasia. How is this treated? Treatment for this condition may include: Medicines (proton pump inhibitors, or PPIs) to decrease or stop GERD. Periodic endoscopic exams to make sure that cancer is not developing. A procedure or surgery for dysplasia. This may include: ?Removal or destruction of abnormal cells. ?Removal of part of the esophagus. Follow these instructions at home: Eating and drinking Eat more fruits and vegetables. Avoid fatty foods. Eat small, frequent meals instead of large meals. Avoid foods that cause heartburn. These foods include: ?Coffee and alcoholic drinks. ?Tomatoes and foods made with tomatoes. ?Merrillan or spicy foods. ?Chocolate and peppermint. Do not drink alcohol. General instructions Take pxdq-izo-izzwanl and prescription medicines only as told by your health care provider. Do not use any products that contain nicotine or tobacco, such as cigarettes, e-cigarettes, and chewing tobacco. If you need help quitting, ask your health care provider. If you are being treated for GERD, make sure you take medicines and follow all instructions as told by your health care provider. Keep all follow-up visits as told by your health care provider. This is important. Contact a health care provider if: You have heartburn or GERD symptoms. You have difficulty swallowing. Get help right away if: You have chest pain. You are unable to swallow. You vomit blood or material that looks like coffee grounds. Your stool (feces) is bright red or dark. These symptoms may represent a serious problem that is an emergency. Do not wait to see if the symptoms will go away. Get medical help right away. Call your local emergency services (911 in the [place] Do not drive yourself to the hospital. Summary Austin's esophagus occurs when the tissue that lines the esophagus changes or becomes damaged. Austin's esophagus may be diagnosed with an upper gastrointestinal endoscopy and a biopsy. Treatment may include medicines, procedures to remove abnormal cells, or surgery. Follow your health care provider's instructions about what to eat and drink, what medicines to take, and when to call for help. This information is not intended to replace advice given to you by your health care provider. Make sure you discuss any questions you have with your health care provider. Document Revised: 06/23/2020 Document Reviewed: 06/23/2020 [employer] Patient Education 2022 [employer]. Follow Up Care 07/22/2023 13:53:31 With:Anna Hassan CNP Address: When:1 month [facility] 08-04-2023 Evaluation + Plan note Future Scheduled TestsMagnesium Level 08/04/23Vitamin B12 Level 08/04/23 [facility] 05-19-2023 Hospital Discharge instructions Patient Education 05/19/2023 08:44:59 Esophagitis Esophagitis [...] Follow these instructions at home: Medicines Take ofvt-ctb-tjynrza and prescription medicines only as told by [...] powder, vinegar, hot sauces, and barbecue sauce. ?[place] fruit juices and citrus fruits, such as oranges, zaynab, and limes. ?Tomato-based foods, such as red sauce, chili, salsa, and pizza with red sauce. ?Fried and fatty foods, such as donuts, djiboutian fries, potato chips, and high-fat dressings. ?High-fat [...] provider. Document Revised: 10/15/2020 Document Reviewed: 10/15/2020 Elsevier Patient Education 2022 [employer]. Follow Up Care 05/18/2023 11:08:33 With:Anna Hassan CNP Address: When:3 months [facility] 02-18-2023 Evaluation note Encounter Date [...] otitis media with effusion (ICD-10 - H65.93) [facility] Other 09-02-2023 Evaluation note* Encounter Date Diagnosis [...] dermati tis home care material was printed [facility] Other 07-31-2023 Hospital Discharge instructions Patient Education [...] treated at home. Treatment may include: Taking oqfi-qgn-khkcwtt pain medicines. Following a clear liquid diet. [...] Follow these instructions at home: Medicines Take zsqc-xlr-qszcldx and prescription medicines only as told by [...] provider. Document Revised: 01/16/2020 Document Reviewed: 01/16/2020 [employer] Patient Education 2022 [employer] Follow Up Care 10/15/2022 08:09:26 With:Anna Hassan CNP Address: When:1 month [facility] 07-31-2023 Evaluation + Plan note Future Scheduled Tests Radiology* CT Abdomen/Pelvis w/ Contrast 11/17/22 [facility] 02-10-2023 NotePROCEDURE: XR ANKLE RT [...] Electronically authenticated by: LIZBETH TANG Date: 2022-05-30 13:52[facility]02-10-2023 NotePROCEDURE: XR ANKLE RT MIN 3 VIEWS, [...] Electronically authenticated by: LIZBETH TANG Date: 2022-05-30 13:52[facility]04-08-2022 Evaluation note* Encounter Date Diagnosis Assessment Notes [...] - G89.29) Continue with current treatment plan. [facility] Other Evaluation + Plan note No data available for this section [facility] Evaluation + Plan note Future Appointments Appointment Date:09/07/2023 03:15:00 PM Scheduled Provider:Elina Boyer MD [place] Type:[facility] Follow Up Future Scheduled Tests Laboratory* Magnesium Level 08/04/23 * Vitamin B12 Level 08/04/23 [facility] Evaluation noteNo InformationNort Acunu Other Evaluation note* Diagnosis Onset Date Resolution Status Contact dermatitis [facility] Work Phone: History general Narrative - Reported* Type Description Date Medical History Left rotator cuff Medical History Asthma Medical History GERD Surgical History 6 left shoulder surgeries Surgical History Left rotator cuff, x5 Surgical History Left knee Surgical History Left knee, torn ACL and meniscu s Surgical History Gallbladder Surgical History Lap Cholecystectomy Surgical History nerve block Hospitalization History See Above Therative Other Hospital Discharge instructions No data available for this section [facility] Progress note No data available for this section [facility] Summary Purpose Family History Relationship Condition Age at Onset Recorded Date/T lilibeth father Cerebral aneurysm Unknown mother Malignant neoplasm of ovary Unknown father Heart disease Unknown Cerebral aneurysm Unknown mother Unknown Malignant neoplasm Unknown History of ovarian cancer Unknown Advance Directives Advance Directive Response Recorded Date/ Time Advance Directives No May 18, 2018 4:50pm Chief Complaint and Reason for Visit Chief Complaint poison linda Reason for Visit Contact dermatitis Additional Source Comments INFORMATION SOURCE (unrecogn ized section and content) DATE CREATED AUTHOR 03/22/[address] [facility] DATE CREATED AUTHOR AUTHOR'S ORGANIZ ATION 03/27/2018 [facility] DATE CREATED AUTHOR AUTHOR'S ORGANIZ ATION 03/27/2018 [facility] DATE CREATED AUTHOR AUTHOR'S ORGANIZ ATION 03/07/2019 [facility] DATE CREATED AUTHOR AUTHOR'S ORGANIZ ATION 07/30/2021 [facility] DATE CREATED AUTHOR AUTHOR'S ORGANIZ ATION 06/05/2022 [facility] DATE CREATED AUTHOR AUTHOR'S ORGANIZ ATION 04/27/2023 [facility] DATE CREATED AUTHOR AUTHOR'S ORGANIZ ATION 09/10/2023 [facility] REASON FOR VISIT (unrecogniz ed section and content) SORE THROAT, EARACHE CONGEST IONRASH UNDER ARMS AND DOWN SIDESISABEL SI JOINT INJECTIONreschedule procedureINCREASE BACK PAIN (seen 2019) Patient Care team informatio n (unrecognized section and content) Team Status: Active Member Role Status Dates Gerald Tavares DO Primary Care Provider Active Team Status: Inactive Member Role Status Dates Gerald Tavares DO Primary Care Provider Active Start: November 16, 2023 End: November 16, 2023 Maida Montiel APRN Attending Provider Active Start: November 16, 2023 End: November 16, 2023 Goals (unrecognized section and content) Goals may be documented in a n alternate section FOR RECORDS PERTAINING TO PATIENTS WHO ARE [...] BE BASED ON THE PRIMARY CLINICAL RECORDS. [facility] [employer] provides no warranty or guarantee of the accuracy or completeness of information in this document.
--- NOTE | 2023-12-08 10:13 | CT_ITS ---
The [address] [address] Patient Name: COLIN MACIAS MRN: [id number] date: 1970 Sex: F Assigned Patient Location: ER Current Patient Location: ER Accession/Order Number: [id number] Exam Date: 12/08/2023 10:52 Report Date: 12/08/2023 11:40 At the request of: DARIN PICKETT Procedure: CT abdomen pelvis w con EXAM: CT abdomen pelvis w con HISTORY: LLQ pain COMPARISON: CT abdomen and pelvis 12/08/2022.. TECHNIQUE: Following the intravenous injection of 90 cc of Visipaque, axial soft tissue windows of the abdomen and pelvis were performed with coronal and sagittal reformats. CT dose reduction technique was used including Automated Exposure Control. Findings: ABDOMEN: The liver, spleen, pancreas, and adrenal glands are unremarkable. The gallbladder is surgically absent. Punctate nonobstructing stone within the interpolar region of the left kidney. No renal collecting system or ureteral dilatation. Evaluation of the bowel is limited given the absence of oral contrast. There are colonic diverticula. No bowel obstruction. The appendix is surgically absent. The aorta is normal caliber. No enlarged abdominal lymph nodes or free abdominal fluid. Tiny fat-containing umbilicus hernia. Pelvis: Unremarkable bladder. The uterus is present and unremarkable within the limits of CT. No enlarged pelvic lymph nodes or free pelvic fluid. No aggressive sclerotic or lytic osseous lesions. CT/CT abdomen pelvis w con IMPRESSION: 1. Nonobstructing left renal stone. 2. Diverticulosis. 3. Other nonemergent findings, as described above. Electronically authenticated by: TAMRA WOODSON Date: 12/08/2023 11:40
--- NOTE | 2023-12-08 10:18 | ED.ABDPAIN1 ---
HPI - Abdominal Pain General Chief Complaint: Abdominal Pain Stated Complaint: ABDOMINAL PAIN Time Seen by Provider: 12/08/23 10:03 Source: patient Mode of arrival: walk-in Limitations: no limitations History of Present Illness HPI narrative: Patient presents ED complaining of left-sided abdominal pain and left flank pain. She said it started about 3 days ago and has gotten slightly worse. She did eat popcorn recently and thinks maybe that flared it up because she has a history of diverticulitis. No history of kidney stones. No diarrhea or constipation. No UTI symptoms. Denies fever chest pain cough or shortness of breath. Related Data Home Medications ?Medication ?Instructions ?Recorded ?Confirmed albuterol sulfate 90 mcg/actuation 1 puff inhalation Q4H PRN 10/08/22 10/08/22 aerosol inhaler shortness of breath or wheezing omeprazole 20 mg capsule,delayed 20 mg PO BID 10/08/22 10/08/22 release Previous Rx's ?Medication ?Instructions ?Recorded ciprofloxacin HCl 500 mg tablet 500 mg PO Q12H #20 tabs 10/08/22 dicyclomine 20 mg tablet 20 mg PO QID PRN abdominal pain 10/08/22 #12 tabs metronidazole 500 mg tablet 500 mg PO BID 10 days #20 tabs 10/08/22 ondansetron 4 mg disintegrating 4 mg PO Q6H PRN nausea and 10/08/22 tablet vomiting #12 tabs oxycodone-acetaminophen 5 mg-325 1 tab PO Q6H PRN pain #10 tabs 10/08/22 mg tablet (Percocet) sucralfate 1 gram tablet (Carafate) 1 g PO QID 3 weeks #84 tabs 10/15/22 Allergies Allergy/AdvReac Type Severity Reaction Status Date / Time No Known Drug Allergies Allergy Verified 10/08/22 15:06 Review of Systems ROS Status of ROS 10 or more systems reviewed and unremarkable except as noted in history and below PFSH PFS Social History Smoking status: Former smoker Exam Narrative Exam Narrative: General: alert, no acute distress Cardiovascular: regular rate and rhythm, normal peripheral perfusion. Respiratory: Lungs CTA, respirations non labored. Extremities: no deformity, no trauma. Neurological: oriented x 4, LOC appropriate for age. Abdomen soft mildly tender in the left lower quadrant and left CVA area no rebound no guarding no peritoneal signs Constitutional Vital Signs, click to edit/add: Last Vital Signs Temp 98.1 F 12/08/23 09:57 Pulse 78 12/08/23 09:57 Resp 18 12/08/23 09:57 BP 158/72 H 12/08/23 09:57 Pulse Ox 97 12/08/23 09:57 O2 Del Method Room Air 12/08/23 09:57 Course Vital Signs Vital signs: Vital Signs Temperature 98.1 F 12/08/23 09:57 Pulse Rate 78 12/08/23 09:57 Respiratory Rate 18 12/08/23 09:57 Blood Pressure 158/72 H 12/08/23 09:57 Pulse Oximetry 97 12/08/23 09:57 Oxygen Delivery Method Room Air 12/08/23 09:57 Temperature 98.1 F 12/08/23 09:57 Pulse Rate 78 12/08/23 09:57 Respiratory Rate 18 12/08/23 09:57 Blood Pressure 158/72 H 12/08/23 09:57 Pulse Oximetry 97 12/08/23 09:57 Oxygen Delivery Method Room Air 12/08/23 09:57 MDM - Abdominal Pain MDM Narrative Medical decision making narrative: Patient's labs and imaging are nonacute. Most likely patient has a lumbar strain lets radiating around her side. She does report she has been heavy lifting lately and has some back problems. No evidence of diverticulitis or obstructing kidney stone. Patient was given IM Toradol prior to discharge. She also reports she has been taking care of her dog who is towards end-of-life and he is very heavy and she has been having to pick him up. This could have exacerbated some back pain. Differential Diagnosis Differential diagnosis: Likely calculus of kidney, constipation, diverticulitis and other (Lumbar strain) Medical Records Attestation: I reviewed the patient's medical records. Lab Data Attestation: I reviewed the patient's lab results. Labs: Lab Results 12/08/23 12/08/23 Range/Units 10:22 10:48 WBC 6.0 (4.0-11.0) 10^3/uL RBC 4.65 (4.20-5.40) 10^6/uL Hgb 13.9 (12.0-16.0) g/dL Hct 40.3 (36.0-48.0) % MCV 86.7 (81.0-99.0) fL MCH 29.9 (26.7-34.0) pg MCHC 34.5 (29.9-35.2) g/dL RDW 12.1 (11.0-15.0) % Plt Count 251 (150-450) 10^3/uL MPV 9.7 (9.5-13.5) fL Neut % (Auto) 67.7 (43.0-75.0) % Lymph % (Auto) 25.9 (20.5-60.0) % [place] % (Auto) 4.5 (1.7-12.0) % Eos % (Auto) 1.2 (0.9-7.0) % Baso % (Auto) 0.5 (0.2-2.0) % Neut # (Auto) 4.1 (1.4-6.5) 10^3/uL Lymph # (Auto) 1.6 (1.2-3.8) 10^3/uL [place] # (Auto) 0.3 (0.3-0.8) 10^3/uL Eos # (Auto) 0.1 (0.0-0.7) 10^3/uL Baso # (Auto) 0.0 (0.0-0.1) 10^3/uL Abs Immat Gran (auto) 0.01 (0.00-0.03) 10^3/uL Imm/Tot Granulo (auto) 0.2 (0.0-0.5) % Sodium 140 (136-145) mmol/L Potassium 3.5 (3.5-5.1) mmol/L Chloride 104 (98-107) mmol/L Carbon Dioxide 28.2 (21.0-32.0) mmol/L Anion Gap 11.3 BUN 12.0 (7.0-18.0) mg/dL Creatinine 0.71 (0.55-1.02) mg/dL Est GFR ( Amer) >60 (>=60) Est GFR (Non-Af Amer) >60 (>=60) BUN/Creatinine Ratio 16.9 Glucose 108 H (74-106) mg/dL Calcium 8.8 (8.5-10.1) mg/dL Total Bilirubin 1.0 (0.2-1.0) mg/dL AST 16 (15-37) U/L ALT 29 (14-59) U/L Alkaline Phosphatase 65 (46-116) U/L Total Protein 6.9 (6.4-8.2) g/dL Albumin 3.7 (3.4-5.0) g/dL Globulin 3.2 g/dL Albumin/Globulin Ratio 1.[address] scan - abdomen: Radiologist's impression: ITS Impressions Abdomen/Pelvis CT 12/08/23 10:13 IMPRESSION: 1. Nonobstructing left renal stone. 2. Diverticulosis. 3. Other nonemergent findings, as described above. Electronically authenticated by: TAMRA WOODSON Date: 12/08/2023 11:40 Discharge Plan Discharge Stand Alone Forms: Work/School Release, Portal Instructions Chief Complaint: Abdominal Pain Clinical Impression: Lumbar pain Patient Disposition: Home, Self-Care Time of Disposition Decision: 12:04 Condition: Good Mode of Transportation: Private Vehicle Prescriptions / Home Meds: No Action sucralfate [Carafate] 1 gram tablet 1 g PO QID 21 Days Qty: 84 0RF Rx Instructions: take before meals and at bedtime albuterol sulfate 90 mcg/actuation HFA aerosol inhaler 1 puff INHALATION Q4H PRN (Reason: shortness of breath or wheezing) omeprazole 20 mg capsule,delayed release(DR/EC) 20 mg PO BID ciprofloxacin HCl 500 mg tablet 500 mg PO Q12H Qty: 20 0RF metronidazole 500 mg tablet 500 mg PO BID 10 Days Qty: 20 0RF oxycodone-acetaminophen [Percocet] 5-325 mg tablet 1 tab PO Q6H PRN (Reason: pain) Qty: 10 0RF dicyclomine 20 mg tablet 20 mg PO QID PRN (Reason: abdominal pain) Qty: 12 0RF ondansetron 4 mg tablet,disintegrating 4 mg PO Q6H PRN (Reason: nausea and vomiting) Qty: 12 0RF Print Language: Georgian Instructions: Acute Low Back Pain (ED) Referrals: ORACIO SINGH DO [Primary Care Provider] - 1 week Discharge Date/Time: 12/08/23 12:52
[2023-12-08 10:29] LABS: Basophils Percent Auto 0.5 % (0.2-2.0); Eosinophils Absolute Auto 0.1 10^3/uL (0.0-0.7); Eosinophils Percent Auto 1.2 % (0.9-7.0); Hematocrit 40.3 % (36.0-48.0); Hemoglobin 13.9 g/dL (12.0-16.0); Immature Granulocytes Abs Auto 0.01 10^3/uL (0.00-0.03); Immature Granulocytes Pct Auto 0.2 % (0.0-0.5); Lymphocytes Absolute Auto 1.6 10^3/uL (1.2-3.8); Lymphocytes Percent Auto 25.9 % (20.5-60.0); Mean Corpuscular HGB Conc 34.5 g/dL (29.9-35.2); Mean Corpuscular Hemoglobin 29.9 pg (26.7-34.0); Mean Corpuscular Volume 86.7 fL (81.0-99.0); Mean Platelet Volume 9.7 fL (9.5-13.5); Monocytes Absolute Auto 0.3 10^3/uL (0.3-0.8); Monocytes Percent Auto 4.5 % (1.7-12.0); Neutrophils Absolute Auto 4.1 10^3/uL (1.4-6.5); Neutrophils Percent Auto 67.7 % (43.0-75.0); Platelet Count 251 10^3/uL (150-450); Red Blood Count 4.65 10^6/uL (4.20-5.40); Red Cell Distribution Width 12.1 % (11.0-15.0)
[2023-12-08 11:34] LABS: Alanine Aminotransferase 29 U/L (14-59); Albumin Globulin Ratio 1.2; Albumin Level 3.7 g/dL (3.4-5.0); Alkaline Phosphatase 65 U/L (46-116); Anion Gap 11.3; Aspartate Amino Transferase 16 U/L (15-37); BUN Creatinine Ratio 16.9; Calcium 8.8 mg/dL (8.5-10.1); Carbon Dioxide 28.2 mmol/L (21.0-32.0); Chloride 104 mmol/L (98-107); Estimated GFR (African America >60 (>=60); Estimated GFR (Non-African Ame >60 (>=60); Globulin 3.2 g/dL; Glucose 108 mg/dL (74-106); Potassium 3.5 mmol/L (3.5-5.1); Sodium 140 mmol/L (136-145); Total Protein 6.9 g/dL (6.4-8.2)
[2023-12-08] MEDS: KETOROLAC TROMETHAMINE 60 MG/2 ML VIAL IM (12:48)
== END 2023-12-08 12:52 | disposition home or self-care (01) ==
PROVIDERS: Emergency Provider Emergency Medicine; PCP Family Medicine
DX: M54.50 Low back pain, unspecified (principal); Z87.891 Personal history of nicotine dependence
CPT/HCPCS: 36415; 74177; 80053; 85025; 96372; 99285; J1885; Q9966

== ENCOUNTER 2024-04-30 11:07 | Emergency (ER) | payer BC, SELFPAY ==
[2024-04-30 11:12] VITALS: BP 158/91; PULSE 76; TEMP 36.9; O2SAT 96; BMI 28.2
--- OUTSIDE RECORDS SUMMARY | 2024-04-30 11:13 | XMS_ITS | CCD ---
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 methocarbamol (Robaxin-750 oral tablet) omeprazole (omeprazole 20 mg Lisa) Procedures Performed Colonoscopy (05/02/2021), Anxiety depression, Anxiety [...] EDT With: Merlin DEE, Elina Biswas Where: [facility] Invalid Interpretation Code Acid reflux, Print Label By Order Location\.b r\ Vitamin B12 Level, Blood, Routine collect, 08/04/23, Order for future visit, Lab Collect, Austin's esophagus [facility] Gastroenterology Office/Clin ic Noteon 08-04-2023 Gastroenterology [...] day(s), # 90 cap(s), Refills(s) 2, Pharmacy: [facility], 160, cm, 08/04/23 14:50:00 EDT, Height/Length [...] revealed irregular (more content not included)... Normal [facility] Comment on above: Result Comment: Elec tronically Signed By: Anna Hassan CNP\.liborio\Date and Time Signed: 08/04/23 15:04 EDT Patient [...] Tomatoes and foods made with tomatoes. ? [place] or spicy foods. ? Chocolate and peppermint. ? Do not drink alcohol. General instructions ? Take onxl-lsv-miissrt and prescription medicines only as told by [...] provider. Document Revised: 06/23/2020 Document Reviewed: 06/23/2020 Elsevier Patient Education ? 2022 [employer] Normal [facility] Operative Reporton Operative Report [id number]#1.00TIFF Normal [facility] Physician Orderon 07-14-2023 Physician Order [id number]#1.00TIFF Normal [facility] Inpatient Patient Summaryon 06-29-2023 Inpatient Patient Summary [id number]#1.00TIFF [facility] Reminderson 05-20-2023 Reminders - From: Anna Hassan CNP To: Jeanette Lloyd; Sent: 05/19/2023 09:13:55 EST Show up: 05/19/2023 09:14:00 EST Subject: Ambulatory Reminder Reminder/Recall Colonoscopy in 2026. 05/12/2026 3 year colon recall From: Jeanette Lloyd To: [facility] - Reminders/Recalls; Sent: 05/20/2023 12:39:29 EST ! Show up: 03/20/2026 12:39:00 EST Due Date/Time: 04/20/2026 12:39:00 EST [facility] Ambulatory Visit Summaryon 0 05-19-2023 Ambulatory Visit Summary SONALAngelyTIERA :1970 Visit Date:05/19/2023 Ambulatory Visit Instructions Your Diagnosis Esophagitis, Napavine grade B Irregular Z line of esophagus Schatzki's ring Acid reflux Colon polyp Rectal polyp Your Care Team Attending Physician - Anna Hassan CNP Primary Care Physician - GERALD TAVARES DO This Is Your Medications List Contact prescribing physician if questions or concerns Al hydroxide/Mg hydroxide/simethicone (Mylanta Maximum Strength) BMX Solution acetaminophen-hydrocodone (Lakeshore 325 mg-5 mg oral tablet) albuterol (Albuterol [...] the Following Appointments Follow Up with Anna Hassna CNP When: Within 3 months Where: Medications What How Much When Why Instructions Unchanged acetaminophen-hydrocodone (Lakeshore 325 mg-5 mg oral tablet) 1 Tablets [...] reflux Colon polyp Degenerative disc disease Esophagitis, Napavine grade B History of colon polyps History [...] care. Education Materials (more content not included)... [facility] Consent for Procedure/Surger yon 05-19-2023 Consent for Procedure/Surgery [id number]#1.00TIFF [facility] Gastroenterology Office/Clin ic Noteon 05-19-2023 Gastroenterology Office/Clinic [...] Normal mood and affect Assessment/Plan 1. Esophagitis, Napavine grade B (K20.80: Other esophagitis without bleeding) [...] hyperplastic polyps?p (more content not included)... Normal [facility] Comment on above: Result Comment: Elec [...] these instructions at home: Medicines ? Take rfwp-ypc-mgwsuan and prescription medicines only as told by [...] vinegar, hot sauces, and barbecue sauce. ? [place] fruit juices and citrus fruits, such as oranges, zaynab, and limes. ? Tomato-based foods, such as red sauce, chili, salsa, and pizza with red sauce. ? Fried and fatty foods, such as donuts, armenian fries, potato chips, and high-fat dressings. ? [...] your abdom (more content not included)... Normal [facility] Reminderson 05-15-2023 Reminders - From: Sonido Zapien To: [facility] - Reminders/Recalls; Sent: 05/15/2023 16:50:36 EST Show up: 04/20/2026 16:50:00 EST Subject: Ambulatory Reminder Due Date/Time: 05/12/2026 16:50:00 EST Reminder/Recall Repeat colonoscopy in 3 years(2026) due to tubular adenoma [facility] Operative Reporton Operative Report [id number]#2.00TIFF [facility] Outside Colonoscopyon 2023 Outside Colonoscopy [id number]#2.00TIFF [facility] Physician Orderon 05-12-2023 Physician Order [id number]#1.00TIFF [facility] Insurance Correspondenceon 0 05-06-2023 Insurance Correspondence [id number]#1.00TIFF [facility] Consent for Procedure/Surger yon 04-28-2023 Consent for Procedure/Surgery [id number]#1.00TIFF [facility] Gastroenterology Office/Clin ic Noteon 04-27-2023 Gastroenterology Office/Clinic [...] record indicated patient was previously evaluated at [facility] 09/2022. Patient had CT A/P that [...] discharged home. Patient was again evaluated in [facility] 10/15/22 for upper abdominal pain and [...] 2. D (more content not included)... Normal [facility] Comment on above: Result Comment: Elec tronically Signed By: Anna Hassan CNP\.liborio\Date and Time Signed: 04/27/23 12:52 EST Patient [...] grapefruit, pineapple, and zaynab. Vegetables Deep-fried vegetables. Samoan fries. Any vegetables prepared with added fat. [...] reflux di (more content not included)... Normal [facility] Quick Strepon 02-18-2023 S. pyogenes Org specific cx Ql (Throat) Negative [place] [facility] Video[employer] Other Quick Strep [place] [facility] [employer] Other CBC AUTO DIFFon 06-04-2022 BASO # 0.0 103/ul Normal 0.0-0.1 [facility] Comment on above: Performed By: #### C BC #### [facility] [address] [place] [address] Dr. Jacob Mcdaniel Basophils/100 WBC (Bld) 0.8 % Normal 0.2-2.0 [facility] Comment on above: Performed By: #### C BC #### [facility] [address] [address] [address] Jacob Mcdaniel EO # 0.2 103/ul Normal 0.0-0.7 [facility] Comment on above: Performed By: #### C BC #### [facility] [address] [address] [address] Jacob Mcdaniel Eosinophils/100 WBC (Bld) 3.0 % Normal 0.9-7.0 [facility] Comment on above: Performed By: #### C BC #### [facility] [address] [place] [address] Dr. aJcob Mcdaniel Erythrocyte distribution width (RBC) [Ratio] 12.1 % Normal 11.0-15.0 [facility] Comment on above: Performed By: #### C BC #### [facility] [address] [place] [address] Dr. Jacob Mcdaniel Hematocrit (Bld) [Volume fraction] 42.5 % Normal 36.0-48.0 [facility] Comment on above: Performed By: #### C BC #### [facility] [address] [place] [address] Dr. Jacob Mcdaniel Hemoglobin (Bld) [Mass/Vol] 14.7 g/dL Normal 12.0-16.0 [facility] Comment on above: Performed By: #### C BC #### [facility] [address] [place] [address] Dr. Jacob Mcdaniel IG # 0.02 10e3/ul Normal 0.00-0.03 [facility] Comment on above: Performed By: #### C BC #### [facility] [address] [place] [address] Dr. Jacob Mcdaniel IG % 0.4 % Normal 0.0-0.5 [facility] Comment on above: Performed By: #### C BC #### [facility] [address] [place] [address] Dr. Jacob Mcdaniel LYMPH # 1.7 103/ul Normal 1.2-3.8 [facility] Comment on above: Performed By: #### C BC #### [facility] [address] [place] [address] Dr. Jacob Mcdaniel Lymphocytes/100 WBC (Bld) 31.8 % Normal 20.5-60.0 [facility] Comment on above: Performed By: #### C BC #### [facility] [address] [place] [address] Dr. Jacob Mcdaniel MANUAL DIFF REQ NO Normal [facility] Comment on above: Performed By: #### C BC #### [facility] [address] [place] [address] Dr. Jacob Mcdaniel MCH (RBC) [Entitic mass] 30.1 pg Normal 26.7-34.0 [facility] Comment on above: Performed By: #### C BC #### [facility] [address] [place] [address] Dr. Jacob Mcdaniel MCHC (RBC) [Mass/Vol] 34.6 g/dL Normal 29.9-35.2 [facility] Comment on above: Performed By: #### C BC #### [facility] [address] [place] [address] Dr. Jacob Mcdaniel MCV (RBC) [Entitic vol] 86.9 fL Normal 81.0-99.0 [facility] Comment on above: Performed By: #### C BC #### [facility] [address] [place] [address] Dr. Jacob Mcdaniel MONO # 0.3 103/ul Normal 0.3-0.8 [facility] Comment on above: Performed By: #### C BC #### [facility] [address] [place] [address] Dr. Jacob Mcdaniel Monocytes/100 WBC (Bld) 6.2 % Normal 1.7-12.0 [facility] Comment on above: Performed By: #### C BC #### [facility] [address] [place] [address] Dr. Jacob Mcdaniel NEUT # 3.1 103/ul Normal 1.4-6.5 [facility] Comment on above: Performed By: #### C BC #### [facility] [address] [place] [address] Dr. Jacob Mcdaniel Neutrophils/100 WBC (Bld) 57.8 % Normal 43.0-75.0 [facility] Comment on above: Performed By: #### C BC #### [facility] [address] [place] [address] Dr. Jacob Mcdaniel Platelet mean volume (Bld) [Entitic vol] 8.9 fL Critically low 9.5-13.5 [facility] Comment on above: Performed By: #### C BC #### [facility] [address] [place] [address] Dr. Jacob Mcdaniel PLT 263 103/ul Normal 150-450 [facility] Comment on above: Performed By: #### C BC #### [facility] [address] [address] [address] Jacob Mcdaniel RBC 4.89 106/ul Normal 4.20-5.40 [facility] Comment on above: Performed By: #### C BC #### [facility] [id number] Jacob Mcdaniel WBC 5.3 103/ul Normal 4.0-11.0 [facility] Comment on above: Performed By: #### C BC #### [facility] [id number] Jacob Mcdaniel MG MAMM SCREEN 3D ISABEL CADon 06-04-2022 MG MAMM SCREEN 3D ISABEL CAD Patient: TIERA WAKEFIELD Exam Date: 06/04/2022 : 1970 Gender:F Ordering : DR HERB MEDEL . Admission #: [id number] Family : DR GERALD TAVARES D.O. Order #: [id number] CLICK HERE TO VIEW EXAM RADIOLOGY REPORT [...] kidney cancer at age 64. LOCATION: [facility] BREAST COMPOSITION: Heterogeneously dense,which may obscure [...] Tang MD on 06/04/2022 at 14:03 Normal [facility] PROF 14(COMP METB)on 023 Albumin [Mass/Vol] 4.0 g/dL Normal 3.4-5.0 [facility] Comment on above: Performed By: #### T MACKENZIE, CMP #### [facility] [address] [address] [address] Jacob Mcdaniel Albumin/Globulin [Mass ratio] 1.2 {ratio} Normal [facility] Comment on above: Performed By: #### T SH, CMP #### [facility] [address] [place] [address] Dr. Jacob Mcdaniel ALP [Catalytic activity/Vol] 69 U/L Normal 46-116 [facility] Comment on above: Performed By: #### T MACKENZIE, CMP #### [facility] [address] [place] [address] Dr. Jacob Mcdaniel ALT [Catalytic activity/Vol] 40 U/L Normal 14-59 [facility] Comment on above: Performed By: #### T SH, CMP #### [facility] [address] [place] [address] Dr. Jacob Mcdaniel Anion gap [Moles/Vol] 12.1 mmol/L Normal [facility] Comment on above: Performed By: #### T SH, CMP #### [facility] [address] [place] [address] Dr. Jacob Mcdaniel AST [Catalytic activity/Vol] 21 U/L Normal 15-37 [facility] Comment on above: Performed By: #### T SH, CMP #### [facility] [address] [place] [address] Dr. Jacob Mcdaniel Bilirubin [Mass/Vol] 0.8 mg/dL Normal 0.2-1.0 [facility] Comment on above: Performed By: #### T SH, CMP #### [facility] [address] [place] [address] Dr. Jacob Mcdaniel Calcium [Mass/Vol] 9.5 mg/dL Normal 8.5-10.1 [facility] Comment on above: Performed By: #### T SH, CMP #### [facility] [address] [address] [address] Jacob Mcdaniel Chloride [Moles/Vol] 103 mmol/L Normal 98-107 [facility] Comment on above: Performed By: #### T SH, CMP #### [facility] [address] [address] [address] Jacob Mcdaniel CO2 [Moles/Vol] 31.9 mmol/L Normal 21.0-32.0 [facility] Comment on above: Performed By: #### T SH, CMP #### [facility] [address] [address] [address] Jacob Mcdaniel Creatinine [Mass/Vol] 0.84 mg/dL Normal 0.55-1.02 [facility] Comment on above: Performed By: #### T SH, CMP #### [facility] [address] [place] [address] Dr. Jacob Mcdaniel EGFR-AF PAPUA [place] GUINEAN >60 Normal >=60 [facility] Comment on above: Performed By: #### T SH, CMP #### [facility] [address] [place] [address] Dr. Jacob Mcdaniel EGFR-NON AF PAPUA [place]AN >60 Normal >=60 [facility] Comment on above: Performed By: #### T SH, CMP #### [facility] [address] [place] [address] Dr. Jacob Mcdaniel Globulin (S) [Mass/Vol] 3.4 g/dL Normal [facility] Comment on above: Performed By: #### T SH, CMP #### [facility] [address] [place] [address] Dr. Jacob Mcdaniel Glucose [Mass/Vol] 105 mg/dL Normal 74-106 [facility] Comment on above: Performed By: #### T SH, CMP #### [facility] [address] [address] [address] Jacob Mcdaniel Potassium [Moles/Vol] 4.0 mmol/L Normal 3.5-5.1 [facility] Comment on above: Performed By: #### T SH, CMP #### [facility] [address] [address] [address] Jacob Mcdaniel Protein [Mass/Vol] 7.4 g/dL Normal 6.4-8.2 [facility] Comment on above: Performed By: #### T SH, CMP #### [facility] [address] [address] [address] Jacob Mcdaniel Sodium [Moles/Vol] 143 mmol/L Normal 136-145 [facility] Comment on above: Performed By: #### T MACKENZIE, CMP #### [facility] [address] [address] [address] Jacob Mcdaniel Urea nitrogen [Mass/Vol] 12.0 mg/dL Normal 7.0-18.0 [facility] Comment on above: Performed By: #### T MACKENZIE, CMP #### [facility] [address] [address] [address] Jacob Mcdaniel Urea nitrogen/Creatinin e [Mass ratio] 14.3 mg/mg Normal [facility] Comment on above: Performed By: #### T MACKENZIE, CMP #### [facility] [address] [address] [address] Jacob Mcdaniel TSHon 06-04-2022 TSH 0.619 uIU/mL Normal 0.358-3.740 [facility] Comment on above: Performed By: #### T MACKENZIE, CMP ####[facility] [address] [place], [place] [address]Dr. Jacob Mcdaniel VIT B12 AND FOLATEon 023 Cobalamin (Vitamin B12) [Mass/Vol] 396.0 pg/mL Normal 193.0-986.0 [facility] Comment on above: Performed By: #### B 12FOL ####[facility] [address] [address]Dr[address] Jacob Mcdaniel FOLATE 9.30 ng/mL Normal 8.60-58.90 [facility] Comment on above: Performed By: #### B 12FOL ####[facility] [address] [place], [place] [address]Dr. Jacob Mcdaniel XR DEXA BONE DENSITYon 06-04 [...] by: FRANK MONROY Date: 2022-06-04 13:14 Normal [facility] XR CSPINE 2_3 VIEWSon 2022 [...] by: LIZBETH TANG Date: 2022-05-30 13:58 Normal [facility] PAP ACOG PANEL 2: 30 to 65on 01-29-2022 . . Normal [facility] Comment on above: Result Comment: Perf ormed at: BA Performed By: #### 4 [id number] #### [facility] [address] [address] [address] Jacob Mcdaniel Age Gdln ACOG Testing 30-65 Normal [facility] Comment on above: Performed By: #### 4 [id number] #### [facility] [address] [address] [address] Jacob Mcdaniel DIAGNOSIS: Comment Normal [facility] Comment on above: Result Comment: NEGA TIVE FOR INTRAEPITHELIAL LESION OR MALIGNANCY. CELLULAR CHANGES ASSOCIATED WITH ATROPHY AND INFLAMMATION ARE PRESENT. Performed at: BA Performed By: #### [id number] #### [facility] [address] [place] [address] Dr. Jacob Mcdaniel HPV Aptima Negative Normal Negative [facility] Comment on above: Result Comment: This nucleic acid amplification test detects fourteen high-risk HPV types (16,18,31,33,35,39,45,51,52,56,58,59,66,68) without differentiation. Performed at: =G Performed By: #### 4 [id number] #### [facility] [address] [place] [address] Dr. Jacob Mcdaniel Methodology: Comment Normal [facility] Comment on above: Result Comment: This liquid based ThinPrep(R) pap test was screened with the use of an image guided system. Performed at: WB Performed By: #### 4 [id number] #### [facility] [address] [place] [address] Dr. Jacob Mcdaniel Note: Comment Normal [facility] Comment on above: Result Comment: The Pap smear is a screening test designed to aid in the detection of premalignant and malignant conditions of the uterine cervix. It is not a diagnostic procedure and should not be used as the sole means of detecting cervical cancer. Both false-positive and false-negative reports do occur. . Performed at: WB Performed By: #### 4 [id number] #### [facility] [address] [place] [address] Dr. Jacob Mcdaniel Performed by: Comment Normal [facility] Comment on above: Result Comment: Codey Lorenzo, Facility Planner (ASCP) Performed at: BA Performed By: #### 4 [id number] #### [facility] [address] [place] [address] Dr. Jacob Mcdaniel Specimen adequacy: Comment Normal [facility] Comment on above: Result Comment: Sati sfactory for evaluation. Endocervical and/or squamous metaplastic cells (endocervical component) are present. Performed at: BA Performed By: #### 4 [id number] #### [facility] [address] [address] [address] Jacob Mcdaniel AMYLASEon 09-25-2021 Amylase [Catalytic activity/Vol] 40 U/L Normal 25-115 [facility] Comment on above: Performed By: #### C YOLIE FAN LIPA ####[facility] [address] [id number] Mcdaniel CBC AUTO DIFFon 09-25-2021 BASO # 0.0 103/ul Normal 0.0-0.1 [facility] Comment on above: Performed By: #### C BC ####[facility] [address] [address]DrDoron Mcdaniel Basophils/100 WBC (Bld) 0.6 % Normal 0.2-2.0 [facility] Comment on above: Performed By: #### C BC ####[facility] [address] [place], [place] [address]DrDoron Mcdaniel EO # 0.1 103/ul Normal 0.0-0.7 [facility] Comment on above: Performed By: #### C BC ####[facility] [address] [place], [place] [address]DrDoron Mcdaniel Eosinophils/100 WBC (Bld) 1.5 % Normal 0.9-7.0 [facility] Comment on above: Performed By: #### C BC ####[facility] [address] [place], [place] [address]DrDoron Mcdaniel Erythrocyte distribution width (RBC) [Ratio] 12.2 % Normal 11.0-15.0 [facility] Comment on above: Performed By: #### C BC ####[facility] [address] [address]DrDoron Mcdaniel Hematocrit (Bld) [Volume fraction] 41.6 % Normal 36.0-48.0 [facility] Comment on above: Performed By: #### C BC ####[facility] [address] [place], [place] [address]DrDoron Mcdaniel Hemoglobin (Bld) [Mass/Vol] 13.8 g/dL Normal 12.0-16.0 [facility] Comment on above: Performed By: #### C BC ####[facility] [address] [id number]. Mitastar Jonas IG # 0.01 10e3/ul Normal 0.00-0.03 [facility] Comment on above: Performed By: #### C BC ####[facility] [address] [id number]. Jacob Mcdaniel IG % 0.1 % Normal 0.0-0.5 [facility] Comment on above: Performed By: #### C BC ####[facility] [address] [address]Dr. Jacob Mcdaniel LYMPH # 2.8 103/ul Normal 1.2-3.8 [facility] Comment on above: Performed By: #### C BC ####[facility] [address] [address]Dr. Jacob Mcdaniel Lymphocytes/100 WBC (Bld) 40.1 % Normal 20.5-60.0 [facility] Comment on above: Performed By: #### C BC ####[facility] [address] [address]DrDoron Mcdaniel MANUAL DIFF REQ NO Normal [facility] Comment on above: Performed By: #### C BC ####[facility] [address] [id number]. Jacob Mcdaniel MCH (RBC) [Entitic mass] 30.1 pg Normal 26.7-34.0 [facility] Comment on above: Performed By: #### C BC ####[facility] [address] [id number]. Mitastar Mcdaniel MCHC (RBC) [Mass/Vol] 33.2 g/dL Normal 29.9-35.2 [facility] Comment on above: Performed By: #### C BC ####[facility] [address] [id number]. Jacob Mcdaniel MCV (RBC) [Entitic vol] 90.6 fL Normal 81.0-99.0 [facility] Comment on above: Performed By: #### C BC ####[facility] [address] [id number]. Jacob Mcdaniel MONO # 0.5 103/ul Normal 0.3-0.8 [facility] Comment on above: Performed By: #### C BC ####[facility] [address] [id number]. Jacob Mcdaniel Monocytes/100 WBC (Bld) 6.9 % Normal 1.7-12.0 [facility] Comment on above: Performed By: #### C BC ####[facility] [address] [id number]. Jacob Mcdaniel NEUT # 3.5 103/ul Normal 1.4-6.5 [facility] Comment on above: Performed By: #### C BC ####[facility] [address] [address]Dr. Jacob Mcdaniel Neutrophils/100 WBC (Bld) 50.8 % Normal 43.0-75.0 [facility] Comment on above: Performed By: #### C BC ####[facility] [address] [id number]. Jacob Mcdaniel Platelet mean volume (Bld) [Entitic vol] 9.1 fL Critically low 9.5-13.5 [facility] Comment on above: Performed By: #### C BC ####[facility] [address] [address]Dr. Jacob Mcdaniel PLT 279 103/ul Normal 150-450 [facility] Comment on above: Performed By: #### C BC ####[facility] [address] [place], [place] [id number]. Jacob Mcdaniel RBC 4.59 106/ul Normal 4.20-5.40 [facility] Comment on above: Performed By: #### C BC ####[facility] [address] [id number]. Jacob Mcdaniel WBC 6.9 103/ul Normal 4.0-11.0 [facility] Comment on above: Performed By: #### C BC ####[facility] [address] [place], [place] [address]. [address] M[address]aniel CT ABD/PELVIS WO CONon 09-25 [...] PATTI LOPEZ Date: 2021-09-25 18:01 Normal [facility] CULTURE URINEon 09-25-2021 CULTURE URINE Culture Observations : LIGHT GROWTH OF MIXED GENITAL BRANDT. NO POTENTIAL PATHOGENS SEEN. Normal [facility] Comment on above: Performed By: #### U RCX ####[facility] [address] [place] [address]Dr. Jacob Mcdaniel Covid-19 PCR (CVDTB)on SARS-CoV-2 (COVID-19) RNA MATT+probe Ql (Unsp spec) Not detected Normal NOT DETECTED [facility] Comment on above: Result Comment: When [...] for this test is supported by the Green [employer] Marker of Health and Human Service's declaration that [...] be used). Performed By: #### C VDTBH ####[facility] [address] [place] [address]Dr. Jacob Mcdaniel ER URINE PROFILEon 2 Bilirubin Ql (U) Negative Normal NEGATIVE [facility] Comment on above: Performed By: #### E PEG SHAH UMICRO #### [facility] [address] [place] [address] Dr. Jacob Mcdaniel Clarity (U) CLEAR Normal CLEAR [facility] Comment on above: Performed By: #### E PEG SHAH UMICRO #### [facility] [address] [place] [address] Dr. Jacob Mcdaniel Color (U) LT. YELLOW Normal YELLOW [facility] Comment on above: Performed By: #### E PEG SHAH UMICRO #### [facility] [address] [place] [address] Dr. Jacob RAGLAND A micrscopic examina tion will be performed if indicated. Normal [facility] Comment on above: Performed By: #### E RUR PREGU, UMICRO #### [facility] [address] [place] [address] Dr. Jacob Mcdaniel Glucose Ql (U) Negative Normal NEGATIVE The [facility] Comment on above: Performed By: #### E RUR PREGU, UMICRO #### [facility] [address] [address] [address] Jacob Mcdaniel Hemoglobin Ql (U) Negative Normal NEGATIVE [facility] Comment on above: Performed By: #### Brett RUR PREGU, UMICRO #### [facility] [address] [place] [address] Dr. Jacob Mcdaniel Ketones Ql (U) Negative Normal NEGATIVE The [facility] Comment on above: Performed By: #### Brett RUR PREGU, UMICRO #### [facility] [address] [place] [address] Dr. Jacob Mcdaniel LEUKOCYTES MODERATE Abnormal NEGATIVE [facility] Comment on above: Performed By: #### Brett RUR PREGU, UMICRO #### [facility] [address] [place] [address] Dr. Jacob Mcdaniel Nitrite Ql (U) Negative Normal NEGATIVE The [facility] Comment on above: Performed By: #### Brett RUR PREGU, UMICRO #### [facility] [address] [place] [address] Dr. Jacob Mcdaniel pH (U) 7.0 [pH] Normal 5-9 [facility] Comment on above: Performed By: #### E RUR PREGU, UMICRO #### [facility] [address] [address] [address] Jacob Mcdaniel SPEC GRAVITY 1.010 Normal 1.005-<=1.0 25 [facility] Comment on above: Performed By: #### E RUR PREGU, UMICRO #### [facility] [address] [place] [address] Dr. Jacob Mcdaniel UA PROTEIN Negative Normal NEGATIVE/ TRACE [facility] Comment on above: Performed By: #### Brett RUTahir PREGU, UMICRO #### [facility] [address] [address] [address] Jacob Mcdaniel UR MICRO IND INDICATED Normal [facility] Comment on above: Performed By: #### E RUR PREGU, UMICRO #### [facility] [address] [address] [address] Jacob Mcdaniel Urobilinogen Qn (U) 0.2 {Tessy'U}/dL Normal 0.2 - 1.0 [facility] Comment on above: Performed By: #### BIB ROJOU, UMICRO #### [facility] [address] [address] [address] Jacob Mcdaniel LIPASEon 09-25-2021 Lipase [Catalytic activity/Vol] 100.0 U/L Normal 73.0-393.0 [facility] Comment on above: Performed By: #### C MP, YOLIE, LIPA ####[facility] [address] [place] [address]DrDoron Mcdaniel URon 09-25-2021 , QUAL Negative Normal NEGATIVE [facility] Comment on above: Performed By: #### PEG ROJO, UMICRO #### [facility] [address] [address] [address] Jacob Mcdaniel PROF 14(COMP METB)on 022 Albumin [Mass/Vol] 3.8 g/dL Normal 3.4-5.0 [facility] Comment on above: Performed By: #### C MP, YOLIE, LIPA ####[facility] [address] [place] [address]Dr. Jacob Mcdaniel Albumin/Globulin [Mass ratio] 1.1 {ratio} Normal [facility] Comment on above: Performed By: #### C MP, YOLIE, LIPA ####[facility] [address] [place] [address]DrDoron Mcdaniel ALP [Catalytic activity/Vol] 76 U/L Normal 46-116 [facility] Comment on above: Performed By: #### C MP, YOLIE, LIPA ####[facility] [address] [address]Dr. Jacob Mcdaniel ALT [Catalytic activity/Vol] 43 U/L Normal 14-59 [facility] Comment on above: Performed By: #### C MP, YOLIE, LIPA ####[facility] [address] [address]Dr. Jacob Mcdaniel Anion gap [Moles/Vol] 11.9 mmol/L Normal [facility] Comment on above: Performed By: #### C MP, YOLIE, LIPA ####[facility] [address] [place] [address]Dr. Jacob Mcdaniel AST [Catalytic activity/Vol] 24 U/L Normal 15-37 [facility] Comment on above: Performed By: #### C MP, YOLIE, LIPA ####[facility] [address] [place], [place] [address]Dr. Jacob Mcdaniel Bilirubin [Mass/Vol] 0.3 mg/dL Normal 0.2-1.0 [facility] Comment on above: Performed By: #### C MP, YOLIE, LIPA ####[facility] [address] [place], [place] [address]Dr. Jacob Mcdaniel Calcium [Mass/Vol] 8.6 mg/dL Normal 8.5-10.1 [facility] Comment on above: Performed By: #### C MP, YOLIE, LIPA ####[facility] [address] [place], [place] [address]Dr. Jacob Mcdaniel Chloride [Moles/Vol] 104 mmol/L Normal 98-107 [facility] Comment on above: Performed By: #### C MP, YOLIE, LIPA ####[facility] [address] [place], [place] [address]Dr. Jacob Mcdaniel CO2 [Moles/Vol] 27.7 mmol/L Normal 21.0-32.0 [facility] Comment on above: Performed By: #### C MP, YOLIE, LIPA ####[facility] [address] [address]Dr. Jacob Mcdaniel Creatinine [Mass/Vol] 0.89 mg/dL Normal 0.55-1.02 [facility] Comment on above: Performed By: #### C YOLIE FAN LIPA ####[facility] [address] [address]Dr. Jacob Mcdaniel EGFR-AF [place] >60 Normal >=60 [facility] Comment on above: Performed By: #### C YOLIE FAN, LIPA ####[facility] [address] [place] [address]Dr. Jacob Mcdaniel EGFR-NON AF [place] >60 Normal >=60 [facility] Comment on above: Performed By: #### C YOLIE FAN, LIPA ####[facility] [address] [place] [address]Dr. Jacob Mcdaniel Globulin (S) [Mass/Vol] 3.5 g/dL Normal [facility] Comment on above: Performed By: #### C YOLIE FAN, LIPA ####[facility] [address] [place] [address] [address]Dr. Jacob Mcdaniel Glucose [Mass/Vol] 91 mg/dL Normal 74-106 [facility] Comment on above: Performed By: #### C YOLIE FAN, LIPA ####[facility] [address] [place] [address]Dr. Jacob Mcdaniel Potassium [Moles/Vol] 3.6 mmol/L Normal 3.5-5.1 [facility] Comment on above: Performed By: #### C YOLIE FAN, LIPA ####[facility] [address] [place] [address]Dr. Jacob Mcdaniel Protein [Mass/Vol] 7.3 g/dL Normal 6.4-8.2 [facility] Comment on above: Performed By: #### C MITA YOLIE, LIPA ####[facility] [address] [place] [address]Dr. Jacob Mcdaniel Sodium [Moles/Vol] 140 mmol/L Normal 136-145 [facility] Comment on above: Performed By: #### C MP, YOLIE, LIPA ####[facility] [address] [place], [place] [address]Ah. Jacob Mcdaniel Urea nitrogen [Mass/Vol] 14.0 mg/dL Normal 7.0-18.0 [facility] Comment on above: Performed By: #### C MP, YOLIE, LIPA ####[facility] [address] [place] [address]Dr. Jacob Mcdaniel Urea nitrogen/Creatinin e [Mass ratio] 15.7 mg/mg Normal [facility] Comment on above: Performed By: #### C MITA, YOLIE, LIPA ####[facility] [address] [place] [address]Dr. Jacob Mcdaniel URINE MICROSCOPIC ONLYon BACTERIA SMALL Abnormal NONE SEEN [facility] Comment on above: Performed By: #### E RUR, PREGU, UMICRO #### [facility] [address] [address] [address] Jacob Mcdaniel Bacteria identified Cx Nom (U) INDICATED Normal [facility] Comment on above: Performed By: #### E RUR, PREGU, UMICRO #### [facility] [address] [address] [address] Jacob Mcdaniel CAST NONE SEEN Normal NONE SEEN [facility] Comment on above: Performed By: #### E RUR, PREGU, UMICRO #### [facility] [address] [address] [address] Jacob Mcdaniel Crystals LM Nom (Urine sed) NONE SEEN Normal NONE SEEN [facility] Comment on above: Performed By: #### E RUR, PREGU, UMICRO #### [facility] [address] [address] [address] Jacob Mcdaniel Epithelial cells LM Ql (Urine sed) FEW Abnormal NONE SEEN /RARE [facility] Comment on above: Performed By: #### E RUR, PREGU, UMICRO #### [facility] [address] [address] [address] Jacob Mcdaniel MUCOUS NONE SEEN Normal NONE SEEN [facility] Comment on above: Performed By: #### E AYANARPEG UMICRO #### [facility] [address] [place], [place] [address] Dr. Jacob Mcdaniel RBC NONE SEEN Abnormal 0-2 [facility] Comment on above: Performed By: #### E RURBIBU UMICRO #### [facility] [address] [place], [place] [address] Dr. Jacob Mcdaniel WBC 10-20 Abnormal NONE SEEN [facility] Comment on above: Performed By: #### E RURPEG UMICRO #### [facility] [address] [place], [place] [address] Dr. Jacob Mcdaniel XR lumbar spine AP/LAT/FLX/E XTon 07-29-2021 XR lumbar spine AP/LAT/FLX/EXT [facility] [place] [address] XRay Report Signed Patient: Tiera Wakefield MR#: [id number] 21 : 1970 Acct:[id number] Age/Sex: 50 / F ADM Date: 07/29/21 Loc: XD Room: Type: [facility] Attending Dr: Matteo Person MD Ordering Provider: [...] study. Impression dictated by: Wilson Aguilar Jr., D.ODoron07/29/2021 2:43 PM Dictation Location: [place] [address] Transcribed By: [facility] 07/29/21 1443 Dictated By: Wilson Aguilar Jr DO 07/29/21 1441 Signed By: 07/29/21 1443 [facility] Operative Reporton 9 Operative Report MR#: [id number] S [facility] Pt. Name: Tiera Wakefield Room #: 0C Discharge Date: Birthdate: 1970 OPERATIVE REPORT DATE OF SURGERY: 12/01/2018 SURGEON: Lizbeth Fleming M.D. PREOPERATIVE DIAGNOSIS: Left shoulder rotator cuff tear. POSTOPERATIVE DIAGNOSIS: Left shoulder rotator cuff tear. MEDICAL EQUIPMENT REPAIRER: Darinel Bartholomew M.D. ANESTHESIA: General. PROCEDURE PERFORMED: Left shoulder rotator cuff repair. INDICATIONS: The patient is a 48-year-old woman, who had previously had a rotator cuff repair performed by Dr. Melvin in [place]. I reviewed the intraoperative images and it [...] reconstruction. This would be to remove her capitan grande rotator cuff tendon and instead reconstruct with [...] Robert/Lizbeth Fleming M.D. Date Trans: 12/01/2018 11:50 Miguel SHELBY_JN:[id number] cc: Gerald Tavares D.O. [address] [place] [address] Normal The [facility] POC GLUCOSE LABon 12-01-2018 Glucose [Mass/Vol] 79 mg/dL Normal 70-100 [facility] Comment on above: Performed By: #### 8 5499 #### [address] POC URINE PREGNANCYon 2018 Beta HCG ( test) Ql (U) Negative Normal NEGATIVE [facility] Comment on above: Result Comment: Perf ormed in PACU Performed By: #### 8 4140 #### [facility] [address] MRI SHOULDER WO CONTRAST LEF Ton 08-18-2018 MRI SHOULDER WO CONTRAST LEFT [facility] Department of Radiology [address] [place] [id number] Patient Name: TIERA WAKEFIELD : 1970 Sex: F Age: Race: White Pt. Location: Patient Status: Ordered Date: 08/10/2018 12:00:00 PM Completed Date: 08/18/2018 07:41 AM Requesting Provider: LIZBETH FLEMING Attending Provider: Report Copy To: Signs & Symptoms: M75.122 Complete rotatr-cuff tear/ruptr of left shoulder, not trauma I10 History: Kaylah, Hardware left shoulder -new number [facility] [address] / [place] per shyam call ref # [id number] *er Comments: , , , Ordering Provider [...] 10. Electronically signed by:Peggy Winchester. Transcribed by: [email or web address], User Resident: Electronically Signed by: PEGGY WINCHESTER @ 08/18/2018 10:48 AM Normal [facility] Comment on above: Order Comment: , , = ========= , Ordering Provider - LIZBETH FLEMING MD , CNOVon 03-16-2018 CNOV Office Visit (SPSNAV) -------SONALTIERA Au ([id number]) 1970 FDate Time Provider Nvsmqqekro46/27/18 2:55 PM Tahir ANN SPSNAV During your [...] I will see her back in onemonth's time.Odalis Ahn Provider: ZORAIDA ALMANZAR [[id number]]Allergies As of Date: 03/16/2018 Noted Allergy ReactionASPIRIN [...] FOR* More...Follow-up and Disposition History RecordedEncounter Number: [id number] Status:Closed by Tahir ANN MD on 03/16/18 Normal [facility] PROGRESSon 03-16-2018 Protein mass conc HNO ID: [id number] thor: Tahir Phillips: (none)Author Type: PhysicianType: Progress [...] fatmata in one month's time.Tahir Ann MD [facility] HISTORY PHYSICALon 8 HISTORY PHYSICAL HNO ID: [id number] thor: Sydney Reyna ([facility]) Marisol Hidalgo: (none)Author Type: Physician AssistantType: HANDPFiled: 02/18/2018 9:35 AMNote Text:LOCAL PROCEDURE HISTORY AND PHYSICAL EXAMSERVICE DATE: 02/18/2018SERVICE TIME: 9:34 AMProvisional Diagnosis/Treatment Plan: lumbar disc herniation/Right L5-Y1HVINBAyxmilpuktLEI: This is a 47 year old female [...] February 18, 2018 : 9:34 AM PAGER: [phone] [facility] NURSING PROGon 02-18-2018 Protein mass conc HNO ID: [id number] thor: Christine (Rn) [place], RNService: (none)Author Type: Registered NurseType: Nursing Progress NoteFiled: 02/18/2018 9:54 AMNote Text: Nursing Progress NotePatient Name: Tiera SunshineRN: [id number] Location: AV Endo/AV Endo Daily Note: 0946 - Pt arrived to post op awake, oriented x 3. Pt statespain has gone from 10/10 to 6/10 to right leg. Pt still having numbnessto right leg. Pedal push/pulls equal and strong. vSSThis note was completed by: Christine Downing, RN [facility] OPERATIVE NOon 02-18-2018 OPERATIVE NO HNO ID: [id number] thor: Zoraida Fine: (none)Author Type: PhysicianType: Operative ReportFiled: 02/18/2018 9:44 AMNote Text:Pt presents for f/u. Continues to have Rt leg pain. Appearsuncomfortable, seen by Dr. Ann for surgical eval. Wants to proceed withan injection today to address the presenting symptoms. Consent obtained.Rt side was marked in the pre-op area. Pt is aware of risks, benefits,alternatives, expected outcome, equipment and personnel.[facility] approved time out was performed identifying the site, side and levelof procedure prior to start of procedure.[facility] [place] - ELECTIVE PROCEDURELumbar Transforaminal Epidural Steroid Injection [...] I performed theentire procedure.Zoraida Almanzar DO, MBA [facility] PT EDon 02-18-2018 PT ED HNO ID: [id number] thor: Christine RojasRn) LAQUITA Downingervice: (none)Author Type: Registered NurseType: Patient EducationFiled: 02/18/2018 9:58 AMNote Text:POST OP LEARNING RESPONSEINSTRUCTION PROVIDED TO: PatientMETHOD OF INSTRUCTION: Written instruction - handoutsVerbal instructionPATIENT / FAMILY RESPONSE: Verbalizes understanding of: POST-PROCEDUREINSTRUCTIONS- Correct actions to take to reduce post procedurecomplicationsFOLLO W-UP PLAN: Complete - No need for follow-upSUPPLEMENTAL MATERIAL: NoneREFERRAL (RECOMMENDATION): NoneElectronically Signed By: Christine Downing RN In Department: PROCEDURES [facility] PT ED HNO ID: [id number] thor: Keely Mena) Angelica RNService: NursingAuthor Type: Registered NurseType: Patient EducationFiled: 02/18/2018 9:28 AMNote Text:PRE OP LEARNING ASSESSMENTPROCEDURE/SURGERY : PAIN MANAGEMENT: lumbar epiduralREADINESS TO LEARNCOGNITIVE ABILITY: Alert and orientedMOTIVATION TO LEARN: InterestedFAMILY SUPPORT: High - Very involved in pt carePATIENT LEARNS BEST BY: Individual InstructionVerbal InstructionFACTORS AFFECTING LEARNING: NonePHYSICAL LIMITATIONS AFFECTING LEARNING: NoneElectronically Signed By: Keely Dominguez RN [facility]2018 CNOV Office Visit (SPSNAV) -------TIERA WAKEFIELD ([id number]) 1970 FDate Time Provider Drvznrwaxd63/30/18 1:55 PM Tahir ANN SPSNAV During your visit today, we recorded the following information about you:Tahir Ann MD 02/16/2018 5:11 PM SignedSPINE SURGERY NEW PATIENTPCP: No primary care provider on file.REFERRING PROVIDER: Dr Shabbir AlmanzarSUAshiaJECTIVEHISTORY OF PRESENT ILLNESS:Tiera Wakefield is a 47 [...] is greater than in the backDERMATOMAL DISTRIBUTION:Right: [id number] STATUS: Minimal Ambulation/Wheelchair BoundANTIPLATELET OR ANTICOAGULATION STATUS: [...] suddenly. Her MRI shows a large extruded L5-O3vqaoqhca.I think there is a high chance that this will resolve spontaneously withnonoperative care. To manage her symptoms in the short term she may benefitfrom an epidural injection. I will see her back in one month's time.Odalis Ahn Provider: ZORAIDA ALMANZAR [[id number]]Allergies As of Date: 02/16/2018 Noted Allergy ReactionASPIRIN [...] Status:Closed by Tahir ANN MD on 02/16/18 [facility] 02-16-2018 [facility] Telephone (NIQ) ----TIERA WAKEFIELD ([id number]) 1970 FDate Time Provider Aepkaypxpv69/30/18 ZORAIDA ALMANZAR During your visit today, we recorded the following information about you:Lisa Elizabeth 02/16/2018 1:54 PM SignedPt at check out scheduled for injection on 02/18/[address] Almanzar at 9AMRight L5-S1 TFESI-DM/-Lynn sign Ermelinda Martin 02/16/2018 2:49 PM SignedESR Rossi Martin 02/16/2018 2:51 PM SignedEsr Reggie As of Date: 02/16/2018 Noted Allergy ReactionASPIRIN 04/07/2014 14 - Other: See CommentsDate Reviewed: 02/15/2018Reviewed by: Zoraida Almanzar - Fully AssessedReason for Visit: Tranforaminal Epidural Steroid Injection [1061]Order(s):SURGICAL REQUEST - ELECTIVE [[id number]] Order #: [id number]: 1Prescriptions as of 02/16/2018 Sig: FLUTICASONE 100 [...] [M51.26] INVALID FOR* More... Status:Closed by KANDY MARTIN on 02/16/18 [facility] HOSPon 02-16-2018 HOSP Patient:Aissatou Wakefield AMRN: Height:5' [...] basenames: K,HCTProgress Notes ([facility]INE MED [facility] REJ):Elaine Woodson, RN, RN 02/16/2018 4:33 PM SignedPatient Valerie saw Dr. Ann Bobby is scheduled for an epidural injection sking for pain medication for relief prior to injectionReturn call to [phone] Griffin LPN 02/17/2018 9:21 AM SignedThe prescription you requested has been called in to Dr Tracy dejesus at [facility] to pt and advised.Pt verbalized understanding.Progress Notes ([facility]):Lisa Glenn 02/16/2018 1:54 PM SignedPt at check out scheduled for injection on 02/18/[address] Almanzar at 9Aight L5-S1 TFESI-DM/-ThinWill sign waiverTracy C Veronica 02/16/2018 2:49 PM SignedESR DONETracy C Veronica 02/16/2018 2:51 PM SignedEsr done [facility] PROGRESSon 02-16-2018 Protein mass conc HNO ID: [id number] thor: Tahir Phillips: (none)Author Type: PhysicianType: Progress [...] her back in one month'stime.Tahir Ann MD [facility] Protein mass conc HNO ID: [id number] thor: Tahir Phillips: (none)Author Type: PhysicianType: Progress [...] is greater than in the backDERMATOMAL DISTRIBUTION:Right: [id number] STATUS: Minimal Ambulation/Wheelchair BoundANTIPLATELET OR ANTICOAGULATION STATUS: [...] February 16, 2018 : 1:15 PM PAGER: Normal [facility] CNOVon 02-15-2018 CNOV Office Visit (SPNMAV) -------TIERA WAKEFIELD ([id number]) 1970 [facility] Wgfocgkwkt26/29/18 1:20 PM ZORAIDA ALMANZAR SPNMAV During your [...] side. [place] been [place] in [place] in [place] numeroustimes over past week.Other Issues Addressed at [...] Official reports pending.Loss of disc ht at L5/o0UQREZUGQKR:See diagnosis.PLAN:Discussed various options including non-surgical and surgical [...] right-sided sciatica [M54.41]Order(s):MRI LUMBAR SPINE WO IVCON [[id number]] Order #: [id number] FUTURE CONSULT TO SPINE SURGERY [[id number]] Order #: [id number]: 1Prescriptions as of 02/15/2018 Sig: FLUTICASONE 100 MCG-SALMETERO* Advair Diskus 100 mcg-50 mcg/* ALBUTEROL SULFATE 2.5 MG/3 ML* albuterol sulfate 2.5 mg/3 mL* BACLOFEN 10 MG TABLET CITALOPRAM 20 MG TABLET citalopram 20 mg tablet METHYLPREDNISOLONE 4 MG TABLE* METHYLPREDNISOLONE 4 MG TABLE* methylprednisolone 4 mg table*Problem List As Of Date: 02/15/2018(None) Status:Closed by ZORAIDA ALMANZAR DO on 02/15/18 Normal [facility] MRI LUMBAR SPINE WO IVCONon 02-15-2018 MRI [...] crest and assume there are 5 lumbar-type vertebrae.Bacon Slicer: PRAFUL Transcribe Date/Time: Feb 15 2018 5:30PDictated by : GERALD MARK MDThis examination was interpreted and the report reviewed and electronically signed by: GERALD MARK MD on Feb 15 2018 5:35PM [id number] [facility] PROGRESSon 02-15-2018 Protein mass conc HNO ID: [id number] thor: Zoraida Fine: (none)Author Type: PhysicianType: Progress [...] on side. Hasbeen seen in ED in [place] numerous times over past week.Other Issues Addressed [...] Official reports pending.Loss of disc ht at L5/f0GDWQIUKJSJ:See diagnosis.PLAN:Discussed various options including non-surgical and surgical [...] to consulting/requestingphysic corinna.Zoraida Almanzar DO, MBA Normal [facility] SR-XR Spine Lumbosacral 2 or 3 Views IMPORTon 02-12-2018 SR-XR Spine Lumbosacral 2 or 3 Views IMPORT Images were obtained outside of [facility] [id number] Normal [facility] Vital Signs Date Time Vital Sign Value Performing Clinician Facility 12-29-2023 20:04-0400 Body temperature 97.7 [degF] Browsy [facility] 12-29-2023 20:04-0400 Diastolic blood pressure 92 mm[Hg] Manav Keas [facility] 12-29-2023 20:04-0400 Heart rate 62 /min [facility] Keas [facility] 12-29-2023 20:04-0400 Respiratory rate 18 /min [facility] Keas [facility] 12-29-2023 20:04-0400 SaO2% (BldA) [Mass fraction] 97 % Manav Keas [facility] 12-29-2023 20:04-0400 Systolic blood pressure 150 mm[Hg] Browsy [facility] 12-23-2023 09:37-0400 Body mass index (BMI) [Ratio] 28.87 kg/m2 Ben De Leon DO Work Phone: [facility] 12-23-2023 09:37-0400 Body temperature 98.01 [degF] Ben De Leon DO Work Phone: [facility] 12-23-2023 09:37-0400 Body weight 73.94 kg Ben De Leon DO Work Phone: [facility] 12-23-2023 09:37-0400 Diastolic blood pressure 70 mm[Hg] Ben De Leon DO Work Phone: [facility] 12-23-2023 09:37-0400 Heart rate 68 /min Ben De Leon DO Work Phone: [facility] 12-23-2023 09:37-0400 SaO2% (BldA) [Mass fraction] 98 % Ben De Leon DO Work Phone: [facility] 12-23-2023 09:37-0400 Systolic blood pressure 110 mm[Hg] Ben De Leon DO Work Phone: [facility] 11-16-2023 15:55-0400 Body height 161.29 cm [facility] 11-16-2023 15:55-0400 Body mass index (BMI) [Ratio] 28.4 kg/m2 [facility] 11-16-2023 15:55-0400 Body temperature 98.4 [degF] [facility] 11-16-2023 15:55-0400 Body weight 73.93 kg [facility] 11-16-2023 15:55-0400 Heart rate 63 /min [facility] 11-16-2023 15:55-0400 Respiratory rate 18 /min [facility] 11-16-2023 15:55-0400 SaO2% (BldA) [Mass fraction] 98 % [facility] 08-04-2023 14:46-0400 Blood Pressure Location Anna Hassan [facility] 08-04-2023 14:46-0400 Body temperature 97.52 [degF] Anna Hassan [facility] 08-04-2023 14:46-0400 Diastolic blood pressure 70 mm[Hg] Anna Hassan [facility] 08-04-2023 14:46-0400 Heart rate 84 /min Anna Casonmetz [facility] 08-04-2023 14:46-0400 Systolic blood pressure 113 mm[Hg] Anna Casonmetz [facility] 05-19-2023 08:50-0500 Blood Pressure Location Anna Casonmetz [facility] 05-19-2023 08:50-0500 Body temperature 96.8 [degF] Anna Casonmetz [facility] 05-19-2023 08:50-0500 Diastolic blood pressure 76 mm[Hg] Anna Casonmetz [facility] 05-19-2023 08:50-0500 Heart rate 62 /min Anna Hassan [facility] 05-19-2023 08:50-0500 Systolic blood pressure 120 mm[Hg] Anna Casonmetz [facility] 02-18-2023 10:30-0400 Body height 161.29 cm Christina Montana Other [facility] 02-18-2023 10:30-0400 Body mass index (BMI) [Ratio] 27.9 kg/m2 Christina Montana Other [facility] 02-18-2023 10:30-0400 Body temperature 98.2 [degF] Christina Montana Other [facility] 02-18-2023 10:30-0400 Body weight 72.58 kg Christina Montana Other [facility] 02-18-2023 10:30-0400 Diastolic blood pressure 78 mm[Hg] Christina Nan Other [facility] 02-18-2023 10:30-0400 Respiratory rate 18 /min Christina Nan Other [facility] 02-18-2023 10:30-0400 SaO2% (BldA) [Mass fraction] 98 % Christina Nan Other [facility] 02-18-2023 10:30-0400 Systolic blood pressure 134 mm[Hg] Christina Nan Other [facility] 12-20-2022 11:40-0400 Body height 161.29 cm Christina Nan Other [facility] 12-20-2022 11:40-0400 Body mass index (BMI) [Ratio] 27.55 kg/m2 Christina Nan Other [facility] 12-20-2022 11:40-0400 Body temperature 97 [degF] Christina Nan Other [facility] 12-20-2022 11:40-0400 Body weight 71.67 kg Christina Nan Other [facility] 12-20-2022 11:40-0400 Diastolic blood pressure 79 mm[Hg] Christina Nan Other [facility] 12-20-2022 11:40-0400 SaO2% (BldA) [Mass fraction] 98 % Christina Nan Other [facility] 12-20-2022 11:40-0400 Systolic blood pressure 142 mm[Hg] Christina Rameymond Other [facility] 11-17-2022 15:48-0400 Blood Pressure Location Anna Casonmetz [facility] 11-17-2022 15:48-0400 Body temperature 97.16 [degF] Annaangely CasonSonya [facility] 11-17-2022 15:48-0400 Diastolic blood pressure 75 mm[Hg] Anna Hassan [facility] 11-17-2022 15:48-0400 Heart rate 63 /min Anna Hassan [facility] 11-17-2022 15:48-0400 Systolic blood pressure 124 mm[Hg] Annaangely Hassan [facility] 07-26-2021 11:45-0400 Body height 161.29 cm Matteo Person Other [facility] Other 07-26-2021 11:45-0400 Body mass index (BMI) [Ratio] 28.94 kg/m2 Matteo Person Other [place] Other 07-26-2021 11:45-0400 Body weight 75.3 kg Matteo Person Other [facility] 07-26-2021 11:45-0400 Diastolic blood pressure 80 mm[Hg] Matteo Person Other [facility] 07-26-2021 11:45-0400 SaO2% (BldA) [Mass fraction] 99 % Matteo Person Other [facility] Other 07-26-2021 11:45-0400 Systolic blood pressure 120 mm[Hg] Matteo Person Other [facility] Other Encounters Encounter Date Encounter Type Care Provider Facility Start: 12-29-2023 End: 12-29-2023 Emergency department patient visit Manav Fisher [facility] Start: 12-23-2023 End: 12-23-2023 ambulatory BEN DE LEON Not Available Start: 12-23-2023 End: 12-23-2023 Office outpatient new 45 minutes Ben De Leon DO Work Phone: [facility] Comment on above: Puncture wound of ri ght foot, initial encounter (Primary Dx) Start: 11-16-2023 End: 11-16-2023 ambulatory [facility] Work Phone: Start: 11-16-2023 End: 11-16-2023 Patient encounter procedure [facility] Work Phone: Start: 09-07-2023 End: 09-07-2023 ambulatory Elina Boyer Facility:[facility] Start: 09-07-2023 End: 09-07-2023 Patient encounter procedure Elina Boyer [facility] Start: 08-04-2023 End: 08-04-2023 ambulatory Anna Hassan [facility] Start: 08-04-2023 End: 08-04-2023 Patient encounter procedure Anna Hassan [facility] Start: 07-14-2023 End: 07-14-2023 Lab Drop off Castro Talal Sarmini [facility] Start: 07-14-2023 End: 07-14-2023 ambulatory Castro Talal Sarmini [facility] Start: 07-14-2023 End: 07-14-2023 ambulatory Castro Talal Sarmini Facility:CD:[id number] Start: 05-19-2023 End: 05-19-2023 ambulatory Anna Hassan Facility:[facility] Start: 05-19-2023 End: 05-19-2023 Patient encounter procedure Anna Hassan [facility] Start: 05-12-2023 End: 05-12-2023 Lab Drop off Castro Talal Sarmini [facility] Start: 05-12-2023 End: 05-12-2023 ambulatory Castro Talal Sarmini Facility[facility] Start: 05-12-2023 End: 05-12-2023 ambulatory Castro Talal Sarmini Facility:CD:[id number] Start: 04-27-2023 End: 04-27-2023 ambulatory Anna Hassan Facility:[facility] Start: 04-27-2023 End: 04-27-2023 ambulatory YOLIE FORRESTER Not Available Start: 02-18-2023 End: 02-18-2023 ambulatory Christina Montana Other [facility] Other Start: 02-18-2023 Office outpatient vi sit 15 minutes Christina Monatna [facility] Start: 12-20-2022 End: 12-20-2022 ambulatory Christina Montana Other [facility] Other Start: 12-20-2022 Office outpatient vi sit 15 minutes Christina Montana [facility] Start: 12-01-2022 End: 12-01-2022 Patient encounter procedure Anna Hassan [facility] Start: 11-17-2022 End: 11-17-2022 Patient encounter procedure Anna Hassan [facility] Start: 07-18-2022 End: 07-18-2022 Patient encounter procedure Anna Hassan [facility] Start: 06-05-2022 Encounter for genera l adult medical examination without abnormal findings DR GERALD TAVARES [facility] Start: 06-04-2022 End: 06-05-[address] HERB MEDEL Facility:[facility] Start: 06-04-2022 End: 06-05-2022 Encounter for general adult medical examination without abnormal findings DR GERALD TAVARES Facility:[facility] Start: 05-30-2022 End: 05-30-[address] LIZBETH TANG Facility:[facility] Start: 01-22-2022 End: 01-22-[address] GERALD TAVARES Facility:[facility] Start: 09-25-2021 End: 09-26-[address] DERIK LLOYD Facility:[facility] Start: 08-22-2021 (Procedure) Short Matteo Person [facility] Start: 08-22-2021 End: 08-22-2021 ambulatory Matteo Person Other [facility] Start: 08-12-2021 End: 08-12-2021 ambulatory Matteo Person Other [facility] Other Start: 08-12-2021 Telephone encounter Matteo Person [facility] Start: 07-30-2021 End: 07-30-2021 ambulatory Matteo Person Other [facility] Other Start: 07-30-2021 Telephone encounter [facility] Start: 07-26-2021 End: 07-26-2021 ambulatory Matteo Person Other [facility] Other Start: 07-26-2021 Office outpatient vi sit 25 minutes Matteo Person [facility] Yakov Start: 12-01-2018 End: 12-02-2018 Patient encounter procedure LIZBETH FLEMING Facility:[facility] Start: 03-16-2018 End: 03-17-2018 Patient encounter procedure R AMANDA ANN [facility] Start: 02-18-2018 End: 02-18-2018 Patient encounter procedure [facility] Start: 02-16-2018 End: 02-17-2018 Patient encounter procedure R AMANDA ANN [facility] Start: 02-15-2018 Patient encounter procedure [facility] Start: 02-15-2018 End: 02-15-2018 Patient encounter procedure [facility] Procedures Date Procedure Procedure Detail Performing Clinician Start: 04-27-2023 Microscopic observation [Identifier] in Cervix by Cyto stain Ben De Leon DO Work Phone: Start: 06-04-2022 Mammography Ben De Leon DO Work Phone: Start: 05-02-2021 Colonoscopy Ben De Leon DO Work Phone: Start: 05-02-2021 Colonoscopy Anna Hassan Start: 12-01-2018 ANESTH SURGERY OF SHOULDER EDISON Jones Start: 12-01-2018 Arthroscopy shoulder rotator cuff repair LIBZETH FLEMING Anxiety disorder (disorder) Anna Hassan Arthroscopy of knee Anna Nolan Cholecystectomy Anna yee Colonoscopy Anna Hassan [...] (disorder) Anna Hassan Laparoscopic cholecystectomy Anna Hassan [facility] 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) Anna Hassan [facility]gun Plan of Treatment Date Care Activity Detail Author Start: 05-02-2031 Screening for malign ant neoplasm of colon [facility] Start: 04-27-2028 Screening for malign ant neoplasm of cervix [facility] Start: 04-27-2026 Screening for malign ant neoplasm of cervix Pap Smear [facility] Start: 05-02-2024 End: 05-02-2024 Patient encounter procedure 05/02/2024 9:00 AM EST Office Visit [facility] [address] [place] [address] Herb Medel DO [address] [place] [address] [facility] Start: 12-20-2023 Influenza vaccination Influenza Vacc ine (#1) [facility] Start: 06-04-2023 Screening for malign ant neoplasm of breast Mammogram [facility] Start: 1970 Screening for malign ant neoplasm of colon [facility] Immunizations Immunization Date Immunization Notes Care Provider Fa aicha 12-23-2023 tetanus toxoid, reduced diphtheria toxoid, and acellular pertussis vaccine, adsorbed Ben De Leon DO Work Phone: [facility] 03-18-2021 SARS-CoV-2 (COVID-19 ) mRNA BNT-162b2 vax Anna Hassan [facility] Comment on above: Result Comment: 2022: [id number] 05-14-2012 hepatitis A vaccine, adult dosage Anna Hassan [facility] 05-14-2012 hepatitis B vaccine, pediatric or pediatric/adolescent dosage Anna Hassan [facility] NEGATED: Highlighted row has not occurred!05-18-2023 influenza virus vaccine, unspecified formulation Anna Hassan [facility] NEGATED: Highlighted row has not occurred!04-24-2023 influenza virus vaccine, unspecified formulation Castro Indianamini [facility] NEGATED: Highlighted row has not occurred!02-27-2021 influenza virus vaccine, unspecified formulation Anna Hassan [facility] Payers Date Payer Category Payer Unknown [id number] 1970 Unknown [id number] 2.16.8 [id number] 1970 Unknown [id number] 2.16.84 [id number] 1970 Unknown [id number] 2.16.84 [id number] 1970 Unknown [id number] 2.16.84 [id number] 1969 Unknown [id number] 2.16.84 [id number] 1969 Unknown [id number] 2.16.84 [id number] 1969 Unknown [id number] 2.16.84 0.1.961363.3.579.2.1259 1969 Unknown [id number] 2.16.840 .1.606637.3.579.2.1259 1969 Unknown [id number] 2.16.8 40.1.832651.3.579.2.727 1969 Unknown [id number] 2.16.8 40.1.303198.3.579.2.727 1969 Unknown [id number] 2.16.8 40.1.536026.3.579.2.727 1969 Unknown [id number] 2.16.8 40.1.444254.3.579.2.727 1969 Unknown [id number] 2.16.8 40.1.639886.3.579.2.727 1969 Unknown [id number] 2.16.8 40.1.322821.3.579.2.727 1969 Unknown [id number] 2.16.8 40.1.900967.3.579.2.727 1969 Unknown [id number] 2.16.8 40.1.440309.3.579.2.727 1969 Unknown [id number] 2.16.8 [id number] 1960 [facility] [id number] Self-pay Self Pay [id number] Unknown [id number] Social History Date Type Detail Facility Start: 04-27-2023 Sex Assigned At F [facility] Start: 05-02-2021 End: 08-04-2023 Tobacco smoking status Ex-smoker (finding) [facility] Comment on above: denies Tobacco smoking status Never [facility] Start: 1970 Sex Assigned At Female F [facility] Start: 11-15-2022 [facility] Start: 12-23-2023 Alcoholic beverage intake Lifetime non-drinker (finding) [facility] Start: 04-27-2023 History of Social function [facility] Start: 11-15-2022 Alcohol Comment caffeine: 1-2 cups/d ay [facility] Start: 11-10-2022 Gender identity Identifies as female gender (finding) [facility] Functional Status Date Assessment Result Facility 12-29-2023 Functional Status N/A [facility] 08-04-2023 Functional Status N/A [facility] 05-19-2023 Functional Status N/A [facility] 11-17-2022 Functional Status N/A [facility] Clinical Notes 07-26-2021 to 12-29-2023 Note Date & Type Note Facility 12-29-2023 Hospital Discharg e instructions Patient Education 12/29/2023 21:33:24 Contusion Contusion A contusion is a deep bruise. Contusions are the result of a blunt injury to tissues and muscle fibers under the skin. The injury causes bleeding under the skin. The skin over the contusion may turn blue, purple, or yellow. Minor injuries will give you a painless contusion, but more severe injuries cause contusions that can stay painful and swollen for a few weeks. Follow these instructions at home: Pay attention to any changes in your symptoms. Let your health care provider know about them. Take these actions to relieve your pain. Managing pain, stiffness, and swelling Use resting, icing, applying pressure (compression), and raising (elevating) the injured area. This is often called the RICE method. ?Rest the injured area. Return to your normal activities as told by your health care provider. Ask your health care provider what activities are safe for you. ?If directed, put ice on the injured area. To do this: ?Put ice in a plastic bag. ?Place a towel between your skin and the bag. ?Leave the ice on for 20 minutes, 2 3 times a day. ?If your skin turns bright red, remove the ice right away to prevent skin damage. The risk of skin damage is higher if you cannot feel pain, heat, or cold. ?If directed, apply light compression to the injured area using an elastic bandage. Make sure the bandage is not wrapped too tightly. Remove and reapply the bandage as directed by your health care provider. ?If possible, elevate the injured area above the level of your heart while you are sitting or lying down. General instructions Take gwmx-imu-hkpcbsp and prescription medicines only as told by your health care provider. Keep all follow-up visits. Your health care provider may want to see how your contusion is healing with treatment. Contact a health care provider if: Your symptoms do not improve after several days of treatment. Your symptoms get worse. You have difficulty moving the injured area. Get help right away if: You have severe pain. You have numbness in a hand or foot. Your hand or foot turns pale or cold. This information is not intended to replace advice given to you by your health care provider. Make sure you discuss any questions you have with your health care provider. Document Revised: 09/22/2022 Document Reviewed: 09/22/2022 Meet[employer] Patient Education 2023 [employer]. Follow Up Care 12/29/2023 20:01:29 With:GERALD TAVARES Address: [facility] [address] Business (1) When:Within 3 Day(s) [facility] 12-29-2023 Note ED Patient Education Note Orthopedics Contusion A contusion is a deep bruise. Contusions are the result of a blunt injury to tissues and muscle fibers under the skin. The injury causes bleeding under the skin. The skin over the contusion may turn blue, purple, or yellow. Minor injuries will give you a painless contusion, but more severe injuries cause contusions that can stay painful and swollen for a few weeks. Follow these instructions at home: Pay attention to any changes in your symptoms. Let your health care provider know about them. Take these actions to relieve your pain. Managing pain, stiffness, and swelling ? Use resting, icing, applying pressure (compression), and raising (elevating) the injured area. This is often called the RICE method. ? Rest the injured area. Return to your normal activities as told by your health care provider. Ask your health care provider what activities are safe for you. ? If directed, put ice on the injured area. To do this: ? Put ice in a plastic bag. ? Place a towel between your skin and the bag. ? Leave the ice on for 20 minutes, 2?3 times a day. ? If your skin turns bright red, remove the ice right away to prevent skin damage. The risk of skin damage is higher if you cannot feel pain, heat, or cold. ? If directed, apply light compression to the injured area using an elastic bandage. Make sure the bandage is not wrapped too tightly. Remove and reapply the bandage as directed by your health care provider. ? If possible, elevate the injured area above the level of your heart while you are sitting or lying down. General instructions ? Take xuuf-sir-eewnest and prescription medicines only as told by your health care provider. ? Keep all follow-up visits. Your health care provider may want to see how your contusion is healing with treatment. Contact a health care provider if: ? Your symptoms do not improve after several days of treatment. ? Your symptoms get worse. ? You have difficulty moving the injured area. Get help right away if: ? You have severe pain. ? You have numbness in a hand or foot. ? Your hand or foot turns pale or cold. This information is not intended to replace advice given to you by your health care provider. Make sure you discuss any questions you have with your health care provider. Document Revised: 09/22/2022 Document Reviewed: 09/22/2022 Meet[employer] Patient Education ? 2023 [employer]. [facility] 12-29-2023 Evaluation + Plan note Extrac maggie from: Title:ED Note Author:aMnav Fisher DO Date :12/29/23 Contusion of knee (S80.00XA: Contusion of unspecified knee, initial encounter) Orders: XR Knee Complete 4+ Views Right Future Scheduled Tests Laboratory* Magnesium Level 08/04/23 * Vitamin B12 Level 08/04/23 [facility] 09-04-2024 History of Present illness Narrative* Yumiko Cardoza LPN - 12/23/2023 9:30 AM EDT HPI: Historian of HPI: patient Lizzette Wakefield is a 53 y.o. female who presents today to the Urgent Care with the following complaintsand denials which have been present for 1 day(s) C/O Denies Symptom Comments [] [x] Lesion [] [x] Rash [] [x] Lump [] [x] Bump [] [x] Depression [] [x] abscess [] [x] cellulitis [] [x] itching [x] [] pain [] [x] burning [] [x] Sensation of insects crawling Additional Comments: pt has not taken any OTC medications Pt admits to the following living changes new shampoo, new conditioner, and new hand soap Pt reports she stepped on a wood pallet and a nail went through her right boot and made a slight puncture in the bottom of pt's rt foot. Pt will need a tdap update. ROS: A complete system ROS was performed and negative aside from the pertinent positives noted in the HPI and PE. Examination General Examination: General Examination: Alert, oriented, normal affect, well-appearing, in no acute distress, well developed, well nourished. Head: normocephalic, atraumatic Eyes: sclera non-icteric Skin: miniscule superficial puncture wound plantar aspect between the heads of the 1st and 2nd metatarsals of the right foot, no obvious FB or signs of infection. Heart: no murmurs, regular rate and rhythm, S1, S2 normal Lungs: clear to auscultation bilaterally Musculoskeletal: FROM right lower extremity Extremities: no edema, no cyanosis Peripheral Pulses: normal Neurologic: sensory exam intact to right lower extremity, NV intact Psych: alert, oriented, cognitive function intact, cooperative with exam. HPI and documentation approved and amended as necessary by Dr. Ben De Leon. Transcribed by Yumiko dill LPN-IV 1. Puncture wound of right foot, initial encounter Dx and tx reviewed with patient. Tetanus updated. Due to superficial nature of the wound will require no further treatment. If any signs of infection RTC for recheck. documented in this encounterResearch [facility] [id number] Instructions* Patient Instructions* Yumiko Ríos RN - 12/23/2023 9:30 AM EDT See progress note documented in this encounterResearch [facility]ton [id number] Hospital Discharge instructions Patient Education 08/04/2023 14:48:11 Austin's Esophagus Austin's Esophagus Austin's esophagus occurs when the tissue that lines the esophagus changes or becomes damaged. Theesophagus is the tube that carries food from [...] your esophagus. Your health care provider can viewthe inside of your esophagus during this procedure. [...] drinks. ?Tomatoes and foods made with tomatoes. ?[place] or spicy foods. ?Chocolate and peppermint. Do not drink alcohol. General instructions Take ydby-tgv-sgytiuh and prescription medicines only as told by your health care provider. Do not use any products that contain nicotine or tobacco, such as cigarettes, e- cigarettes, and chewing tobacco. If you need help quitting, ask your health care provider. If you are being treated for GERD, make sure you take medicines and follow all instructions as toldby your health care provider. Keep all follow-up [...] provider. Document Revised: 06/23/2020 Document Reviewed: 06/23/2020 Meet[employer] Patient Education 2022 [employer]. Follow Up Care 07/22/2023 13:53:31 With:Anna Hassan CNP Address: When:1 month [facility] 04-16-2024 Evaluation + Plan note Future Scheduled Tests Laboratory* Magnesium Level 08/04/23 * Vitamin B12 Level 08/04/23 [facility] 01-30-2024 Hospital Discharge instructions Patient Education 05/19/2023 08:44:59 [...] Follow these instructions at home: Medicines Take ktdo-ivh-vohskgb and prescription medicines only as told by [...] powder, vinegar, hot sauces, and barbecue sauce. ?[place] fruit juices and citrus fruits, such as oranges, zaynab, and limes. ?Tomato-based foods, such as red sauce, chili, salsa, and pizza with red sauce. ?Fried and fatty foods, such as donuts, armenian fries, potato chips, and high-fat dressings. ?High-fat [...] you need help quitting, ask your health careprovider. General instructions Pay attention to any changes [...] or meditation to manage stress. If you needhelp reducing stress, ask your health care provider. [...] Document Reviewed: 10/15/2020 Elsevier Patient Education 2022 Familio. Follow Up Care 05/18/2023 11:08:33 With:Anna Hassan CNP Address: When:3 months [facility] 11-01-2023 Evaluation note* Encounter Date Diagnosis Assessment Notes Treatment Notes Treatment Clinical Notes Feb, Sore throat (ICD-10 - J02.9) [...] otitis media with effusion (ICD-10 - H65.93) [facility] 09-02-2023 Evaluation note* Encounter Date Diagnosis [...] dermati tis home care material was printed [facility] 07-31-2023 Hospital Discharge instructions Patient Education [...] treated at home. Treatment may include: Taking qsbb-iiy-vfbubum pain medicines. Following a clear liquid diet. [...] Follow these instructions at home: Medicines Take nocq-tto-scmsjul and prescription medicines only as told by [...] provider. Document Revised: 01/16/2020 Document Reviewed: 01/16/2020 [employer] Patient Education 2022 [facility] Follow Up Care 10/15/2022 08:09:26 With:Anna Hassan CNP Address: When:1 month [facility] 07-31-2023 Evaluation + Plan note Future Scheduled Tests Radiology* CT Abdomen/Pelvis w/ Contrast 11/17/22 [facility] 02-10-2023 NotePROCEDURE: XR ANKLE RT [...] Electronically authenticated by: LIZBETH TANG Date: 2022-05-30 13:52[facility]02-10-2023 NotePROCEDURE: XR ANKLE RT MIN [...] Electronically authenticated by: LIZBETH TANG Date: 2022-05-30 13:52[facility]04-08-2022 Evaluation note* Encounter Date Diagnosis [...] - G89.29) Continue with current treatment plan. [employer] Other Evaluation + Plan note No data available for this section [facility] Evaluation + Plan note Future Appointments Appointment Date:09/07/2023 03:15:00 PM Scheduled Provider:Elina Boyer MD Location[facility] Appointment Type:[facility] Follow Up Future Scheduled Tests Laboratory* Magnesium Level 08/04/23 * Vitamin B12 Level 08/04/23 [facility] Evaluation noteNo InformationNort [employer] Other Evaluation note* Diagnosis Onset Date Resolution Status Contact dermatitis acute [facility] Work Phone: evaluation note* Diagnosis Puncture wound of right foot, initial encounter- Primary documented in this encounter [facility] N[facility]ative - Reported* Type Description Date Medical History Left rotator cuff Medical History Asthma Medical History GERD Surgical History 6 left shoulder surgeries Surgical History Left rotator cuff, x5 Surgical History Left knee Surgical History Left knee, torn ACL and meniscu s Surgical History Gallbladder Surgical History Lap Cholecystectomy Surgical History nerve block Hospitalization History See Above [employer] Other Hospital Discharge instructions No data available for this section [facility] Progress note No data available for this section [facility] Summary Purpose Family History Relationship Condition Age [...] section and content) DATE CREATED AUTHOR 03/22/2018 [facility] DATE CREATED AUTHOR AUTHOR'S ORGANIZ ATION 03/27/2018 [facility] DATE CREATED AUTHOR AUTHOR'S ORGANIZ ATION 03/27/2018 [facility] DATE CREATED AUTHOR AUTHOR'S ORGANIZ ATION 03/07/2019 [facility] DATE CREATED AUTHOR AUTHOR'S ORGANIZ ATION 07/30/2021 [facility] DATE CREATED AUTHOR AUTHOR'S ORGANIZ ATION 06/05/2022 [facility] DATE CREATED AUTHOR AUTHOR'S ORGANIZ ATION 12/24/2023 [facility] DATE CREATED AUTHOR AUTHOR'S ORGANIZ ATION 12/31/2023 [facility] REASON FOR VISIT (unrecogniz ed section [...] November 16, 2023 End: 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 [facility]. provides no warranty or guarantee of the accuracy or completeness of information in this document.
--- NOTE | 2024-04-30 11:20 | XR_ITS ---
[facility] [place] [id number] Patient Name: COLIN MACIAS MRN: [id number] date: 1970 Sex: F Assigned Patient Location: ER Current Patient Location: Accession/Order Number: [id number] Exam Date: 04/30/2024 11:30 Report Date: 04/30/2024 11:57 At the request of: KAREN PHELAN Procedure: XR chest 1V EXAM: XR chest 1V HISTORY: Cough COMPARISON: 03/06/2023 TECHNIQUE: Frontal view of the chest. FINDINGS: No focal consolidations or pleural effusions. Cardiomediastinal silhouette is unremarkable. No acute osseous abnormality. XR/XR chest 1V IMPRESSION: No acute disease. Electronically authenticated by: LILLI MASTERS Date: 04/30/2024 11:57
--- NOTE | 2024-04-30 11:20 | ED.URI1 ---
HPI - URI/Sore Throat General Chief Complaint: Upper Respiratory Infection Stated Complaint: UPPER RESPIRATORY INFECTION SYMPTHOMS Time Seen by Provider: 04/30/24 11:09 Source: patient Limitations: no limitations History of Present Illness HPI Narrative: 53-year-old female presents for 1 week history of dry nonproductive cough. She states that 2 family members have COVID. No hemoptysis or vomiting or diarrhea and she did not have a fever here at triage. Related Data Home Medications ?Medication ?Instructions ?Recorded ?Confirmed albuterol sulfate 90 mcg/actuation 1 puff inhalation Q4H PRN 10/08/22 10/08/22 aerosol inhaler shortness of breath or wheezing omeprazole 20 mg capsule,delayed 20 mg PO BID 10/08/22 10/08/22 release Previous Rx's ?Medication ?Instructions ?Recorded ciprofloxacin HCl 500 mg tablet 500 mg PO Q12H #20 tabs 10/08/22 dicyclomine 20 mg tablet 20 mg PO QID PRN abdominal pain 10/08/22 #12 tabs metronidazole 500 mg tablet 500 mg PO BID 10 days #20 tabs 10/08/22 ondansetron 4 mg disintegrating 4 mg PO Q6H PRN nausea and 10/08/22 tablet vomiting #12 tabs oxycodone-acetaminophen 5 mg-325 1 tab PO Q6H PRN pain #10 tabs 10/08/22 mg tablet (Percocet) sucralfate 1 gram tablet (Carafate) 1 g PO QID 3 weeks #84 tabs 10/15/22 Allergies Allergy/AdvReac Type Severity Reaction Status Date / Time No Known Drug Allergies Allergy Verified 10/08/22 15:06 Review of Systems ROS Narrative A ten point review of systems is negative except as noted above. [facility] Social History Smoking status: Former smoker Little interest or pleasure in doing things: not at all Feeling down, depressed, or hopeless: not at all Exam Narrative Exam Narrative: Nurses note and vital signs reviewed and patient is not hypoxic. General: The patient appears well and in no apparent distress. Patient is resting comfortably on cart. Skin: Warm, dry, no pallor noted. There is no rash noted. Head: Normocephalic, atraumatic Eye: Normal conjunctiva, no drainage Ears, Nose, Mouth, and Throat: oral mucosa is moist. Nares patent. Cardiovascular: Regular Rate and Rhythm Respiratory: Patient is in no distress, no accessory muscle use, lungs are clear to auscultation, no wheezing, rales or rhonchi Back: non-tender GI: Soft and nontender Musculoskeletal: The patient has no evidence of calf tenderness, no pitting edema, symmetrical pulses noted bilaterally Neurological: A&O, normal speech Psychiatric: Cooperative Constitutional Vital Signs, click to edit/add: Last Vital Signs Temp 98.4 F 04/30/24 11:12 Pulse 76 04/30/24 11:12 Resp 18 04/30/24 11:12 BP 158/91 H 04/30/24 11:12 Pulse Ox 96 04/30/24 11:12 O2 Del Method Room Air 04/30/24 11:12 Course Vital Signs Vital signs: Vital Signs Temperature 98.4 F 04/30/24 11:12 Pulse Rate 76 04/30/24 11:12 Respiratory Rate 18 04/30/24 11:12 Blood Pressure 158/91 H 04/30/24 11:12 Pulse Oximetry 96 04/30/24 11:12 Oxygen Delivery Method Room Air 04/30/24 11:12 Temperature 98.4 F 04/30/24 11:12 Pulse Rate 76 04/30/24 11:12 Respiratory Rate 18 04/30/24 11:12 Blood Pressure 158/91 H 04/30/24 11:12 Pulse Oximetry 96 04/30/24 11:12 Oxygen Delivery Method Room Air 04/30/24 11:12 MDM - URI/Sore Throat MDM Narrative Medical decision making narrative: Chest x-ray my interpretation shows no infiltrates. Influenza test is negative and COVID is positive. Patient informed. Treatment diagnosis and follow-up were discussed with the patient. Differential Diagnosis Differential diagnosis: Likely upper respiratory infection, viral infection, influenza and other (COVID, pneumonia) Lab Data Attestation: I reviewed the patient's lab results. Labs: Lab Results 04/30/24 Range/Units 11:15 Influenza Type A Ag Negative Influenza Type B Ag Negative SARS-CoV-2 Ag (CV2AG) Positive A (NEGATIVE) Imaging Data Chest x-ray: My impression: No infiltrate Discharge Plan Discharge Chief Complaint: Upper Respiratory Infection Clinical Impression: COVID-19 Patient Disposition: Home, Self-Care Time of Disposition Decision: 11:43 Condition: Good Mode of Transportation: Private Vehicle Prescriptions / Home Meds: No Action sucralfate [Carafate] 1 gram tablet 1 g PO QID 21 Days Qty: 84 0RF Rx Instructions: take before meals and at bedtime albuterol sulfate 90 mcg/actuation HFA aerosol inhaler 1 puff INHALATION Q4H PRN (Reason: shortness of breath or wheezing) omeprazole 20 mg capsule,delayed release(DR/EC) 20 mg PO BID ciprofloxacin HCl 500 mg tablet 500 mg PO Q12H Qty: 20 0RF metronidazole 500 mg tablet 500 mg PO BID 10 Days Qty: 20 0RF oxycodone-acetaminophen [Percocet] 5-325 mg tablet 1 tab PO Q6H PRN (Reason: pain) Qty: 10 0RF dicyclomine 20 mg tablet 20 mg PO QID PRN (Reason: abdominal pain) Qty: 12 0RF ondansetron 4 mg tablet,disintegrating 4 mg PO Q6H PRN (Reason: nausea and vomiting) Qty: 12 0RF Print Language: Kinyarwanda Instructions: COVID-19 (Coronavirus Disease 2019) (ED), COVID-19: Slow the Coronavirus Spread (ED), Face Coverings (Masks) and COVID-19 (ED), How to Recover from COVID-19 at Home (ED) Referrals: ORACIO SINGH DO [Primary Care Provider] - 1 week
[2024-04-30 11:37] LABS: Influenza Virus A Antigen Negative; Influenza Virus B Antigen Negative; Internal Control Within Normal Limits
[2024-04-30 11:38] LABS: Internal Control Within Normal Limits; SARS-CoV-2 Ag POSITIVE (NEGATIVE)
== END 2024-04-30 11:47 | disposition home or self-care (01) ==
PROVIDERS: Emergency Provider Emergency Medicine; PCP Family Medicine
DX: U07.1 COVID-19 (principal); Z87.891 Personal history of nicotine dependence
CPT/HCPCS: 71045; 87804; 87811; 99284

== ENCOUNTER 2024-05-24 20:15 | Outpatient (REF) | payer BC, SELFPAY ==
--- OUTSIDE RECORDS SUMMARY | 2024-05-24 20:19 | XMS_ITS | CCD ---
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 Comment on above: Performed By: #### C BC ####[facility] [address] [place], [place] [address]DrDoron Mcdaniel Eosinophils/100 WBC (Bld) 1.5 % Normal 0.9-7.0 [facility] Comment on above: Performed By: #### C BC ####[facility] [address] [place], [place] [address]DrDoron Mcdaniel Erythrocyte distribution width (RBC) [Ratio] 12.2 % Normal 11.0-15.0 [facility] Comment on above: Performed By: #### C BC ####[facility] [address] [address]DrDoron Mcdaniel Hematocrit (Bld) [Volume fraction] 41.6 % Normal 36.0-48.0 [facility] Comment on above: Performed By: #### C BC ####[facility] [address] [place], [place] [address]DrDoron Mcdaniel Hemoglobin (Bld) [Mass/Vol] 13.8 g/dL Normal 12.0-16.0 [facility] Comment on above: Performed By: #### C BC ####[facility] [address] [id number]. Mitastar Jonas IG # 0.01 10e3/ul Normal 0.00-0.03 [facility] Comment on above: Performed By: #### C BC ####[facility] [address] [address]Dr. Jacbo Mcdaniel IG % 0.1 % Normal 0.0-0.5 [facility] Comment on above: Performed By: #### C BC ####[facility] [address] [address]Dr. Jacob Mcdaniel LYMPH # 2.8 103/ul Normal 1.2-3.8 [facility] Comment on above: Performed By: #### C BC ####[facility] [address] [address]Dr. Jacob Mcdaniel Lymphocytes/100 WBC (Bld) 40.1 % Normal 20.5-60.0 [facility] Comment on above: Performed By: #### C BC ####[facility] [address] [address]DrDoron Mcdaniel MANUAL DIFF REQ NO Normal [facility] Comment on above: Performed By: #### C BC ####[facility] [address] [id number]. Jacob Mcdaniel MCH (RBC) [Entitic mass] 30.1 pg Normal 26.7-34.0 [facility] Comment on above: Performed By: #### C BC ####[facility] [address] [id number]. Mitastar Mcdaniel MCHC (RBC) [Mass/Vol] 33.2 g/dL Normal 29.9-35.2 [facility] Comment on above: Performed By: #### C BC ####[facility] [address] [address]Dr. Jacob Mcdaniel MCV (RBC) [Entitic vol] 90.6 fL Normal 81.0-99.0 [facility] Comment on above: Performed By: #### C BC ####[facility] [address] [address]Dr. Jacob Mcdaniel MONO # 0.5 103/ul Normal 0.3-0.8 [facility] Comment on above: Performed By: #### C BC ####[facility] [address] [address]Dr. Jacob Mcdaniel Monocytes/100 WBC (Bld) 6.9 % Normal 1.7-12.0 [facility] Comment on above: Performed By: #### C BC ####[facility] [address] [id number]. Jacob Mcdaniel NEUT # 3.5 103/ul Normal 1.4-6.5 [facility] Comment on above: Performed By: #### C BC ####[facility] [address] [address]Dr. Jacob Mcdaniel Neutrophils/100 WBC (Bld) 50.8 % Normal 43.0-75.0 [facility] Comment on above: Performed By: #### C BC ####[facility] [address] [phone]. Jacob Mcdaniel Platelet mean volume (Bld) [Entitic vol] 9.1 fL Critically low 9.5-13.5 [facility] Comment on above: Performed By: #### C BC ####[facility] [address] [address]Dr. Jacob Mcdaniel PLT 279 103/ul Normal 150-450 [facility] Comment on above: Performed By: #### C BC ####[facility] [address] [place], [place] [address]Dr. Jacob Mcdaniel RBC 4.59 106/ul Normal 4.20-5.40 [facility] Comment on above: Performed By: #### C BC ####[facility] [address] [phone]. Jacob Mcdaniel WBC 6.9 103/ul Normal 4.0-11.0 [facility] Comment on above: Performed By: #### C BC ####[facility] [address] [place], [place] [address]Sm. Jacob Mcdnaiel CT ABD/PELVIS WO CONon 09-25 CT ABD/PELVIS [...] PATTI LOPEZ Date: 2021-09-25 18:01 Normal [facility] CULTURE URINEon 09-25-2021 CULTURE URINE Culture Observations : LIGHT GROWTH OF MIXED GENITAL BRANDT. NO POTENTIAL PATHOGENS SEEN. Normal [facility] Comment on above: Performed By: #### U RCX ####[facility] [address] [address]Dr. Jacob Mcdaniel Covid-19 PCR (CVDTB)on SARS-CoV-2 (COVID-19) RNA MATT+probe Ql (Unsp spec) Not detected Normal NOT DETECTED [facility] Comment on above: Result Comment: When [...] for this test is supported by the Checker Cashier of Health and Human Service's declaration that [...] be used). Performed By: #### C VDTBH ####[facility] [address] [address]Dr. Jacob Mcdaniel ER URINE PROFILEon 2 Bilirubin Ql (U) Negative Normal NEGATIVE The [facility] Comment on above: Performed By: #### E PEG SHAH UMICRO #### [facility] [address] [place] [address] Dr. Jacob Mcdaniel Clarity (U) CLEAR Normal CLEAR [facility] Comment on above: Performed By: #### E PEG SHAH UMICRO #### [facility] [address] [place] [address] Dr. Jacob Mcdaniel Color (U) LT. YELLOW Normal YELLOW [facility] Comment on above: Performed By: #### E PEG SHAH UMICRO #### [facility] [address] [place] [address] Dr. Jacob RAGLAND A micrscopic examina tion will be performed if indicated. Normal [facility] Comment on above: Performed By: #### E RUR PREGU, UMICRO #### [facility] [address] [place] [address] Dr. Jacob Mcdaniel Glucose Ql (U) Negative Normal NEGATIVE [facility] Comment on above: Performed By: #### E RUR PREGU, UMICRO #### [facility] [address] [address] [address] Jacob Mcdaniel Hemoglobin Ql (U) Negative Normal NEGATIVE [facility] Comment on above: Performed By: #### Brett RUR PREGU, UMICRO #### [facility] [address] [place] [address] Dr. Jacob Mcdaniel Ketones Ql (U) Negative Normal NEGATIVE [facility] Comment on above: Performed By: #### Brett RUR PREGU, UMICRO #### [facility] [address] [place] [address] Dr. Jacob Mcdaniel LEUKOCYTES MODERATE Abnormal NEGATIVE [facility] Comment on above: Performed By: #### Brett RUR PREGU, UMICRO #### [facility] [address] [place] [address] Dr. Jacob Mcdaniel Nitrite Ql (U) Negative Normal NEGATIVE [facility] Comment on above: Performed By: #### Brett RUR PREGU, UMICRO #### [facility] [address] [place] [address] Dr. Jacob Mcdaniel pH (U) 7.0 [pH] Normal 5-9 [facility] Comment on above: Performed By: #### E RUR PREGU, UMICRO #### [facility] [address] [address] [address] Jacob Mcdaniel SPEC GRAVITY 1.010 Normal 1.005-<=1.0 25 [facility] Comment on above: Performed By: #### E RUR PREGU, UMICRO #### [facility] [address] [place] [address] Dr. Jacob Mcdaniel UA PROTEIN Negative Normal NEGATIVE/ TRACE [facility] Comment on above: Performed By: #### Brett RUTahir PREGU, UMICRO #### [facility] [address] [address] [address] Jacob Mcdaniel UR MICRO IND INDICATED Normal [facility] Comment on above: Performed By: #### E RUR PREGU, UMICRO #### [facility] [address] [address] [address] Jacob Mcdaniel Urobilinogen Qn (U) 0.2 {Tessy'U}/dL Normal 0.2 - 1.0 [facility] Comment on above: Performed By: #### BIB ROJOU, UMICRO #### [facility] [address] [address] [address] Jacob Mcdaniel LIPASEon 09-25-2021 Lipase [Catalytic activity/Vol] 100.0 U/L Normal 73.0-393.0 [facility] Comment on above: Performed By: #### C MP, YOLIE, LIPA ####[facility] [address] [address]DrDoron Mcdaniel URon 09-25-2021 , QUAL Negative Normal NEGATIVE [facility] Comment on above: Performed By: #### PEG ROJO, UMICRO #### [facility] [address] [address] [address] Jacob Mcdaniel PROF 14(COMP METB)on 022 Albumin [Mass/Vol] 3.8 g/dL Normal 3.4-5.0 [facility] Comment on above: Performed By: #### C MP, YOLIE, LIPA ####[facility] [address] [address]Dr. Jacob Mcdaniel Albumin/Globulin [Mass ratio] 1.1 {ratio} Normal [facility] Comment on above: Performed By: #### C MP, YOLIE, LIPA ####[facility] [address] [address]DrDoron Mcdaniel ALP [Catalytic activity/Vol] 76 U/L Normal 46-116 [facility] Comment on above: Performed By: #### C MP, YOLIE, LIPA ####[facility] [address] [address]Dr. Jacob Mcdaniel ALT [Catalytic activity/Vol] 43 U/L Normal 14-59 [facility] Comment on above: Performed By: #### C MP, YOLIE, LIPA ####[facility] [address] [address]Dr. Jacob Mcdaniel Anion gap [Moles/Vol] 11.9 mmol/L Normal [facility] Comment on above: Performed By: #### C MP, YOLIE, LIPA ####[facility] [address] [address]Dr. Jacob Mcdaniel AST [Catalytic activity/Vol] 24 U/L Normal 15-37 [facility] Comment on above: Performed By: #### C MP, YOLIE, LIPA ####[facility] [address] [place], [place] [address]Dr. Jacob Mcdaniel Bilirubin [Mass/Vol] 0.3 mg/dL Normal 0.2-1.0 [facility] Comment on above: Performed By: #### C MP, YOLIE, LIPA ####[facility] [address] [place], [place] [address]Dr. Jacob Mcdaniel Calcium [Mass/Vol] 8.6 mg/dL Normal 8.5-10.1 [facility] Comment on above: Performed By: #### C MP, YOLIE, LIPA ####[facility] [address] [place], [place] [address]Dr. Jacob Mcdaniel Chloride [Moles/Vol] 104 mmol/L Normal 98-107 [facility] Comment on above: Performed By: #### C MP, YOLIE, LIPA ####[facility] [address] [place], [place] [address]Dr. Jacob Mcdaniel CO2 [Moles/Vol] 27.7 mmol/L Normal 21.0-32.0 The [facility] Comment on above: Performed By: #### C MP, YOLIE, LIPA ####[facility] [address] [address]Dr. Jacob Mcdaniel Creatinine [Mass/Vol] 0.89 mg/dL Normal 0.55-1.02 [facility] Comment on above: Performed By: #### C YOLIE FAN LIPA ####[facility] [address] [address]Dr. Jacob Mcdaniel EGFR-AF EQUATORIAL GUINEAN >60 Normal >=60 The [facility] Comment on above: Performed By: #### C YOLIE FAN, LIPA ####[facility] [address] [address]Dr. Jacob Mcdaniel EGFR-NON AF EQUATORIAL GUINEAN >60 Normal >=60 [facility] Comment on above: Performed By: #### C YOLIE FAN, LIPA ####[facility] [address] [address]Dr. Jacob Mcdaniel Globulin (S) [Mass/Vol] 3.5 g/dL Normal [facility] Comment on above: Performed By: #### C YOLIE FAN, LIPA ####[facility] [address] [address]Dr. Jacob Mcdaniel Glucose [Mass/Vol] 91 mg/dL Normal 74-106 [facility] Comment on above: Performed By: #### C YOLIE FAN, LIPA ####[facility] [address] [address]Dr. Jacob Mcdaniel Potassium [Moles/Vol] 3.6 mmol/L Normal 3.5-5.1 [facility] Comment on above: Performed By: #### C YOLIE FAN, LIPA ####[facility] [address] [address]Dr. Jacob Mcdaniel Protein [Mass/Vol] 7.3 g/dL Normal 6.4-8.2 [facility] Comment on above: Performed By: #### C MITA YOLIE, LIPA ####[facility] [address] [address]Dr. Jacob Mcdaniel Sodium [Moles/Vol] 140 mmol/L Normal 136-145 [facility] Comment on above: Performed By: #### C MP, YOLIE, LIPA ####[facility] [address] [place], [place] [address]Oi. Jcaob Mcdaniel Urea nitrogen [Mass/Vol] 14.0 mg/dL Normal 7.0-18.0 [facility] Comment on above: Performed By: #### C MP, YOLIE, LIPA ####[facility] [address] [id number]. Jacob Mcdaniel Urea nitrogen/Creatinin e [Mass ratio] 15.7 mg/mg Normal [facility] Comment on above: Performed By: #### C MITA, YOLIE, LIPA ####[facility] [address] [address]Dr. Jacob Mcdaniel URINE MICROSCOPIC ONLYon BACTERIA SMALL Abnormal NONE SEEN [facility] Comment on above: Performed By: #### E RUR, PREGU, UMICRO #### [facility] [address] [address] [address] Jacob Mcdaniel Bacteria identified Cx Nom (U) INDICATED Normal [facility] Comment on above: Performed By: #### E RUR, PREGU, UMICRO #### [facility] [address] [address] [address] Jacob Mcdaniel CAST NONE SEEN Normal NONE SEEN [facility] Comment on above: Performed By: #### E RUR, PREGU, UMICRO #### [facility] [address] [address] [address] Jacob Mcdaniel Crystals LM Nom (Urine sed) NONE SEEN Normal NONE SEEN [facility] Comment on above: Performed By: #### E RUR, PREGU, UMICRO #### [facility] [address] [address] [address] Jacob Mcdaniel Epithelial cells LM Ql (Urine sed) FEW Abnormal NONE SEEN /RARE [facility] Comment on above: Performed By: #### E RUR, PREGU, UMICRO #### [facility] [address] [address] [address] Jacob Mcdaniel MUCOUS NONE SEEN Normal NONE SEEN [facility] Comment on above: Performed By: #### E AYANARPEG UMICRO #### [facility] [address] [place], [place] [address] Dr. Jacob Mcdaniel RBC NONE SEEN Abnormal 0-2 [facility] Comment on above: Performed By: #### E RURBIBU UMICRO #### [facility] [address] [place], [place] [address] Dr. Jacob Mcdaniel WBC 10-20 Abnormal NONE SEEN [facility] Comment on above: Performed By: #### E RURPEG UMICRO #### [facility] [address] [place], [place] [address] Dr. Jacob Mcdaniel XR lumbar spine AP/LAT/FLX/E XTon 07-29-2021 XR lumbar spine AP/LAT/FLX/EXT [facility] [place] [address] XRay Report Signed Patient: Tiera Wakefield MR#: [id number] 21 : 1970 Acct:[id number] Age/Sex: 50 / F ADM Date: 07/29/21 Loc: XD Room: Type: [facility] Attending Dr: Matteo Person MD Ordering [...] Aguilar Jr., D.ODoron07/29/2021 2:43 PM Dictation Location: [address] [place] [address] Transcribed By: [facility] 07/29/21 1443 Dictated By: Wilson Aguilar Jr DO 07/29/21 1441 Signed By: 07/29/21 1443 [facility] Operative Reporton 9 Operative Report MR#: [id number] [facility] Pt. Name: Tiera Wakefield Room #: 0C Discharge Date: Birthdate: 1970 OPERATIVE REPORT DATE OF SURGERY: 12/01/2018 SURGEON: Lizbeth Fleming M.D. PREOPERATIVE DIAGNOSIS: Left shoulder rotator cuff tear. POSTOPERATIVE DIAGNOSIS: Left shoulder rotator cuff tear. SECURITIES COUNSELOR: Darinel Bartholomew M.D. ANESTHESIA: General. PROCEDURE PERFORMED: Left shoulder rotator cuff repair. INDICATIONS: The patient is a 48-year-old woman, who had previously had a rotator cuff repair performed by Dr. Melvin in [place]. I reviewed the intraoperative images and it [...] reconstruction. This would be to remove her [place] rotator cuff tendon and instead reconstruct [...] Fleming M.D. Date Trans: 12/01/2018 11:50 Miguel SHELBY_JN:[id number] cc: Gerald Tavares D.O. [address] [place] [id number] Normal [facility] POC GLUCOSE LABon 12-01-2018 Glucose [Mass/Vol] 79 mg/dL Normal 70-100 [facility] Comment on above: Performed By: #### 8 5499 #### [address] POC URINE PREGNANCYon 2018 Beta HCG ( test) Ql (U) Negative Normal NEGATIVE [facility] Comment on above: Result Comment: Perf ormed in PACU Performed By: #### 8 4140 #### [facility] [address] MRI SHOULDER WO CONTRAST LEF Ton 08-18-2018 MRI SHOULDER WO CONTRAST LEFT [facility] Department of Radiology [address] [place] [id number] Patient Name: TIERA WAKEFIELD : 1970 Sex: F Age: Race: White Pt. Location: Patient Status: Ordered Date: 08/10/2018 12:00:00 PM Completed Date: 08/18/2018 07:41 AM Requesting Provider: LIZBETH FLEMING Attending Provider: Report Copy To: Signs & Symptoms: M75.122 Complete rotatr-cuff tear/ruptr of left shoulder, not trauma I10 History: Kaylah, Hardware left shoulder -new number [facility] mri [address] / anthem per shyam call ref # [id number] *er Comments: , , , Ordering Provider [...] 10. Electronically signed by:Peggy Winchester. Transcribed by: [email or web address], User Resident: Electronically Signed by: PEGGY WINCHESTER @ 08/18/2018 10:48 AM Normal [facility] Comment on above: Order Comment: , , = ========= , Ordering Provider - LIZBETH FLEMING MD , CNOVon 03-16-2018 CNOV Office Visit (SPSNAV) -------SONALTIERA Au ([id number]) 1970 FDate Time Provider Pqilbwwyes94/27/18 2:55 PM Tahir ANN SPSNAV During your [...] in onemonth's time.Odalis Ahn Provider: ZORAIDA ALMANZAR [[id number]]Allergies As of Date: 03/16/2018 Noted Allergy ReactionASPIRIN [...] FOR* More...Follow-up and Disposition History RecordedEncounter Number: [id number] Status:Closed by Tahir ANN MD on 03/16/18 Normal [facility] PROGRESSon 03-16-2018 Protein mass conc HNO ID: [id number] thor: Tahir Phillips: (none)Author Type: PhysicianType: Progress [...] fatmata in one month's time.Tahir Ann MD [facility] HISTORY PHYSICALon 8 HISTORY PHYSICAL HNO ID: [id number] thor: Sydney Reyna ([facility]) Marisol Hidalgo: (none)Author Type: Physician AssistantType: HANDPFiled: 02/18/2018 9:35 AMNote Text:LOCAL PROCEDURE HISTORY AND PHYSICAL EXAMSERVICE DATE: 02/18/2018SERVICE TIME: 9:34 AMProvisional Diagnosis/Treatment Plan: lumbar disc herniation/Right [id number]: This is a 47 year old female [...] February 18, 2018 : 9:34 AM PAGER: [phone] [facility] NURSING PROGon 02-18-2018 Protein mass conc HNO ID: [id number] thor: Christine (Rn) [place], RNService: (none)Author Type: Registered NurseType: Nursing Progress NoteFiled: 02/18/2018 9:54 AMNote Text: Nursing Progress NotePatient Name: Tiera SunshineRN: [id number] Location: AV Endo/AV Endo Daily Note: 0946 - Pt arrived to post op awake, oriented x 3. Pt statespain has gone from 10/10 to 6/10 to right leg. Pt still having numbnessto right leg. Pedal push/pulls equal and strong. vSSThis note was completed by: Christine Downing, RN [facility] OPERATIVE NOon 02-18-2018 OPERATIVE NO HNO ID: [id number] thor: Zoraida Fine: (none)Author Type: PhysicianType: Operative ReportFiled: 02/18/2018 9:44 AMNote Text:Pt presents for f/u. Continues to have Rt leg pain. Appearsuncomfortable, seen by Dr. Ann for surgical eval. Wants to proceed withan injection today to address the presenting symptoms. Consent obtained.Rt side was marked in the pre-op area. Pt is aware of risks, benefits,alternatives, expected outcome, equipment and personnel.[facility] approved time out was performed identifying the site, side and levelof procedure prior to start of procedure.[facility] SURGERY [place] - ELECTIVE PROCEDURELumbar Transforaminal Epidural Steroid Injection [...] I performed theentire procedure.Zoraida Almanzar DO, MBA [facility] PT EDon 02-18-2018 PT ED HNO ID: [id number] thor: Christine RojasRn) LAQUITA Downingervice: (none)Author Type: Registered NurseType: Patient EducationFiled: 02/18/2018 9:58 AMNote Text:POST OP LEARNING RESPONSEINSTRUCTION PROVIDED TO: PatientMETHOD OF INSTRUCTION: Written instruction - handoutsVerbal instructionPATIENT / FAMILY RESPONSE: Verbalizes understanding of: POST-PROCEDUREINSTRUCTIONS- Correct actions to take to reduce post procedurecomplicationsFOLLO W-UP PLAN: Complete - No need for follow-upSUPPLEMENTAL MATERIAL: NoneREFERRAL (RECOMMENDATION): NoneElectronically Signed By: Christine Downing RN In Department: PROCEDURES [facility] PT ED HNO ID: [id number] thor: Keely Mena) Angelica RNService: NursingAuthor Type: Registered NurseType: Patient EducationFiled: 02/18/2018 9:28 AMNote Text:PRE OP LEARNING ASSESSMENTPROCEDURE/SURGERY : PAIN MANAGEMENT: lumbar epiduralREADINESS TO LEARNCOGNITIVE ABILITY: Alert and orientedMOTIVATION TO LEARN: InterestedFAMILY SUPPORT: High - Very involved in pt carePATIENT LEARNS BEST BY: Individual InstructionVerbal InstructionFACTORS AFFECTING LEARNING: NonePHYSICAL LIMITATIONS AFFECTING LEARNING: NoneElectronically Signed By: Keely Dominguez RN [facility] Office Visit (SPSNAV) -------TIERA WAKEFIELD ([id number]) 1970 FDate Time Provider Rofefwabkh19/30/18 1:55 PM Tahir ANN SPSNAV During your [...] is greater than in the backDERMATOMAL DISTRIBUTION:Right: [id number] STATUS: Minimal Ambulation/Wheelchair BoundANTIPLATELET OR ANTICOAGULATION STATUS: [...] suddenly. Her MRI shows a large extruded L5-G8srtbpzha.I think there is a high chance that this will resolve spontaneously withnonoperative care. To manage her symptoms in the short term she may benefitfrom an epidural injection. I will see her back in one month's time.Odalis Ahn Provider: ZORAIDA ALMANZAR [[id number]]Allergies As of Date: 02/16/2018 Noted Allergy ReactionASPIRIN [...] Status:Closed by Tahir ANN MD on 02/16/18 [facility] [place] 02-16-2018 [facility] Telephone (NIQ) ----TIERA WAKEFIELD ([id number]) 1970 FDate Time Provider Gpqyavoxzk03/30/18 ZORAIDA ALMANZAR During your visit today, we [...] Epidural Steroid Injection [1061]Order(s):SURGICAL REQUEST - ELECTIVE [[id number]] Order #: [id number]: 1Prescriptions as of 02/16/2018 Sig: FLUTICASONE 100 [...] More... Status:Closed by KANDY MARTIN on 02/16/18 [facility] HOSPon 02-16-2018 HOSP Patient:Aissatou Wakefield AMRN: Height:5' [...] basenames: K,HCTProgress Notes (SPINE MED [facility] REJ):Elaine Woodson, RN, RN 02/16/2018 4:33 PM SignedPatient Valerie saw Dr. Ann Bobby is scheduled for an epidural injection sking for pain medication for relief prior to injectionReturn call to [phone] Griffin LPN 02/17/2018 9:21 AM SignedThe prescription you requested has been called in to Dr Tracy dejesus [facility] to pt and advised.Pt verbalized understanding.Progress Notes ([facility]):Lisa Glenn 02/16/2018 1:54 PM SignedPt at check out scheduled for injection on 02/18/[address] Almanzar at 9[facility]ight L5-S1 TFESI-DM/-ThinWill sign waiverTracy C Veronica 02/16/2018 2:49 PM SignedESR DONETracy C Veronica 02/16/2018 2:51 PM SignedEsr done [facility] PROGRESSon 02-16-2018 Protein mass conc HNO ID: [id number] thor: Tahir Phillips: (none)Author Type: PhysicianType: Progress [...] her back in one month'stime.Tahir Ann MD [facility] Protein mass conc HNO ID: [id number] thor: Tahir Phillips: (none)Author Type: PhysicianType: Progress [...] is greater than in the backDERMATOMAL DISTRIBUTION:Right: [id number] STATUS: Minimal Ambulation/Wheelchair BoundANTIPLATELET OR ANTICOAGULATION STATUS: [...] 16, 2018 : 1:15 PM PAGER: Normal [facility] CNOVon 02-15-2018 CNOV Office Visit (SPNMAV) -------TIERA WAKEFIELD ([id number]) 1970 [facility] Lqfjwogfuy85/29/18 1:20 PM ZORAIDA ALMANZAR SPNMAV During your [...] side. [place] in [place] numeroustimes over past week.Other Issues Addressed at [...] Official reports pending.Loss of disc ht at L5/l0ZMRJOCWMAJ:See diagnosis.PLAN:Discussed various options including non-surgical and surgical [...] right-sided sciatica [M54.41]Order(s):MRI LUMBAR SPINE WO IVCON [[id number]] Order #: [id number] FUTURE CONSULT TO SPINE SURGERY [[id number]] Order #: [id number]: 1Prescriptions as of 02/15/2018 Sig: FLUTICASONE 100 MCG-SALMETERO* Advair Diskus 100 mcg-50 mcg/* ALBUTEROL SULFATE 2.5 MG/3 ML* albuterol sulfate 2.5 mg/3 mL* BACLOFEN 10 MG TABLET CITALOPRAM 20 MG TABLET citalopram 20 mg tablet METHYLPREDNISOLONE 4 MG TABLE* METHYLPREDNISOLONE 4 MG TABLE* methylprednisolone 4 mg table*Problem List As Of Date: 02/15/2018(None) Status:Closed by ZORAIDA ALMANZAR DO on 02/15/18 [facility] MRI LUMBAR SPINE WO IVCONon 02-15-2018 [...] crest and assume there are 5 lumbar-type vertebrae.Pharmacy Assistant: PRAFUL Transcribe Date/Time: Feb 15 2018 5:30PDictated by : GERALD MARK MDThis examination was interpreted and the report reviewed and electronically signed by: GERALD MARK MD on Feb 15 2018 5:35PM [id number] PRO[facility] 02-15-2018 Protein mass conc HNO ID: [id number] thor: Zoraida Fine: (none)Author Type: PhysicianType: Progress [...] on side. Hasbeen seen in ED in [place] numerous times over past week.Other Issues Addressed [...] Official reports pending.Loss of disc ht at L5/r2ABCUQJLVKM:See diagnosis.PLAN:Discussed various options including non-surgical and surgical [...] to consulting/requestingphysic corinna.Zoraida Almanzar DO, MBA [facility] SR-XR Spine Lumbosacral 2 or 3 Views IMPORTon 02-12-2018 SR-XR Spine Lumbosacral 2 or 3 Views IMPORT Images were obtained outside of [facility] [id number] Normal [facility] Vital Signs Date Time Vital Sign Value Performing Clinician Facility 12-29-2023 20:04-0400 Body temperature 97.7 [degF] Useful at Night [facility] 12-29-2023 20:04-0400 Diastolic blood pressure 92 mm[Hg] Manav [facility] 12-29-2023 20:04-0400 Heart rate 62 /min [facility] 12-29-2023 20:04-0400 Respiratory rate 18 /min [facility] 12-29-2023 20:04-0400 SaO2% (BldA) [Mass fraction] 97 % Manav [facility] 12-29-2023 20:04-0400 Systolic blood pressure 150 mm[Hg] Useful at Night [facility] 12-23-2023 09:37-0400 Body mass index (BMI) [Ratio] 28.87 kg/m2 Ben De Leon DO Work Phone: [facility] 12-23-2023 09:37-0400 Body temperature 98.01 [degF] Ben De Leon DO Work Phone: [facility] 12-23-2023 09:37-0400 Body weight 73.94 kg Ben De Leon DO Work Phone: [facility] 12-23-2023 09:37-0400 Diastolic blood pressure 70 mm[Hg] Ben De Leon DO Work Phone: [facility] 12-23-2023 09:37-0400 Heart rate 68 /min Ben De Leon DO Work Phone: [facility] 12-23-2023 09:37-0400 SaO2% (BldA) [Mass fraction] 98 % Ben De Leon DO Work Phone: [facility] 12-23-2023 09:37-0400 Systolic blood pressure 110 mm[Hg] Ben De Leon DO Work Phone: [facility] 11-16-2023 15:55-0400 Body height 161.29 cm [facility] 11-16-2023 15:55-0400 Body mass index (BMI) [Ratio] 28.4 kg/m2 [facility] 11-16-2023 15:55-0400 Body temperature 98.4 [degF] [facility] 11-16-2023 15:55-0400 Body weight 73.93 kg [facility] 11-16-2023 15:55-0400 Heart rate 63 /min [facility] 11-16-2023 15:55-0400 Respiratory rate 18 /min [facility] 11-16-2023 15:55-0400 SaO2% (BldA) [Mass fraction] 98 % [facility] 08-04-2023 14:46-0400 Blood Pressure Location Anna Hassan [facility] 08-04-2023 14:46-0400 Body temperature 97.52 [degF] Anna Hassan [facility] 08-04-2023 14:46-0400 Diastolic blood pressure 70 mm[Hg] Anna Hassan [facility] 08-04-2023 14:46-0400 Heart rate 84 /min Anna Casonmetz [facility] 08-04-2023 14:46-0400 Systolic blood pressure 113 mm[Hg] Anna Casonmetz [facility] 05-19-2023 08:50-0500 Blood Pressure Location Anna Casonmetz [facility] 05-19-2023 08:50-0500 Body temperature 96.8 [degF] Anna Casonmetz [facility] 05-19-2023 08:50-0500 Diastolic blood pressure 76 mm[Hg] Anna Casonmetz [facility] 05-19-2023 08:50-0500 Heart rate 62 /min Anna Hassan [facility] 05-19-2023 08:50-0500 Systolic blood pressure 120 mm[Hg] Anna Casonmetz [facility] 02-18-2023 10:30-0400 Body height 161.29 cm Christina Montana Other [facility] Other 02-18-2023 10:30-0400 Body mass index (BMI) [Ratio] 27.9 kg/m2 Christina Montana Other [facility] Other 02-18-2023 10:30-0400 Body temperature 98.2 [degF] Christina Montana Other [facility] Other 02-18-2023 10:30-0400 Body weight 72.58 kg Christina Montana Other [facility] Other 02-18-2023 10:30-0400 Diastolic blood pressure 78 mm[Hg] Christina Nan Other [facility] Other 02-18-2023 10:30-0400 Respiratory rate 18 /min Christina Nan Other [facility] Other 02-18-2023 10:30-0400 SaO2% (BldA) [Mass fraction] 98 % Hcristina Nan Other [facility] Other 02-18-2023 10:30-0400 Systolic blood pressure 134 mm[Hg] Christina Nan Other [facility] Other 12-20-2022 11:40-0400 Body height 161.29 cm Christina Nan Other [facility] Other 12-20-2022 11:40-0400 Body mass index (BMI) [Ratio] 27.55 kg/m2 Christina Nan Other [facility] Other 12-20-2022 11:40-0400 Body temperature 97 [degF] Christina Nan Other [facility] Other 12-20-2022 11:40-0400 Body weight 71.67 kg Christina Nan Other [facility] Other 12-20-2022 11:40-0400 Diastolic blood pressure 79 mm[Hg] Christina Nan Other [facility] Other 12-20-2022 11:40-0400 SaO2% (BldA) [Mass fraction] 98 % Christina Nan Other [facility] Other 12-20-2022 11:40-0400 Systolic blood pressure 142 mm[Hg] Christina Rameymond Other [facility] Other 11-17-2022 15:48-0400 Blood Pressure Location Anna Casonmetz [facility] 11-17-2022 15:48-0400 Body temperature 97.16 [degF] Annaangely CasonSonya [facility] 11-17-2022 15:48-0400 Diastolic blood pressure 75 mm[Hg] Anna Hassan [facility] 11-17-2022 15:48-0400 Heart rate 63 /min Anna Hassan [facility] 11-17-2022 15:48-0400 Systolic blood pressure 124 mm[Hg] Annaangely Hassan [facility] 07-26-2021 11:45-0400 Body height 161.29 cm Matteo Person Other [employer] [facility] [employer] Other 07-26-2021 11:45-0400 Body mass index (BMI) [Ratio] 28.94 kg/m2 Matteo Person Other [employer] [facility] [employer] Other 07-26-2021 11:45-0400 Body weight 75.3 kg Matteo Person Other [facility] Other 07-26-2021 11:45-0400 Diastolic blood pressure 80 mm[Hg] Matteo Person Other [facility] Other 07-26-2021 11:45-0400 SaO2% (BldA) [Mass fraction] 99 % Matteo Person Other [facility] [employer] Other 07-26-2021 11:45-0400 Systolic blood pressure 120 mm[Hg] Matteo Person Other [facility] [employer] Other Encounters Encounter Date Encounter Type Care Provider Facility Start: 12-29-2023 End: 12-29-2023 Emergency department patient visit Manav Fisher [facility] Start: 12-23-2023 End: 12-23-2023 ambulatory BEN DE LEON Not Available Start: 12-23-2023 End: 12-23-2023 Office outpatient new 45 minutes Ben De Leon DO Work Phone: [facility] Comment on above: Puncture wound of ri ght foot, initial encounter (Primary Dx) Start: 11-16-2023 End: 11-16-2023 ambulatory [facility] Work Phone: Start: 11-16-2023 End: 11-16-2023 Patient encounter procedure [facility] Work Phone: Start: 09-07-2023 End: 09-07-2023 ambulatory Elina Boyer Facility:[facility] Start: 09-07-2023 End: 09-07-2023 Patient encounter procedure Elina Boyer [facility] Start: 08-04-2023 End: 08-04-2023 ambulatory [facility] Start: 08-04-2023 End: 08-04-2023 Patient encounter procedure Anna Hassan [facility] Start: 07-14-2023 End: 07-14-2023 Lab Drop off Castro Talal Sarmini [facility] Start: 07-14-2023 End: 07-14-2023 ambulatory Castro Talal Sarmini Facility:[facility] Start: 07-14-2023 End: 07-14-2023 ambulatory Castro Talal Sarmini Facility:CD:[id number] Start: 05-19-2023 End: 05-19-2023 ambulatory Anna Hassan Facility:[facility] Start: 05-19-2023 End: 05-19-2023 Patient encounter procedure Anna Hassan [facility] Start: 05-12-2023 End: 05-12-2023 Lab Drop off Castro Talal Sarmini [facility] Start: 05-12-2023 End: 05-12-2023 ambulatory Castro Talal Sarmini Facility:[facility] Start: 05-12-2023 End: 05-12-2023 ambulatory Castro Talal Sarmini Facility:CD:[id number] Start: 04-27-2023 End: 04-27-2023 ambulatory Anna Hassan Facility:[facility] Start: 04-27-2023 End: 04-27-2023 ambulatory YOLIE FORRESTER Not Available Start: 02-18-2023 End: 02-18-2023 ambulatory Christina Montana Other [facility] Other Start: 02-18-2023 Office outpatient vi sit 15 minutes Christina Montana [facility] Start: 12-20-2022 End: 12-20-2022 ambulatory Christina Montana Other [facility] Other Start: 12-20-2022 Office outpatient vi sit 15 minutes Christina Montana [facility] Start: 12-01-2022 End: 12-01-2022 Patient encounter procedure Anna Hassan [facility] Start: 11-17-2022 End: 11-17-2022 Patient encounter procedure Anna Hassan [facility] Start: 07-18-2022 End: 07-18-2022 Patient encounter procedure Anna Hassan [facility] Start: 06-05-2022 Encounter for genera l adult medical examination without abnormal findings DR GERALD TAVARES [facility] Start: 06-04-2022 End: 06-05-[address] HERB MEDEL Facility:[facility] Start: 06-04-2022 End: 06-05-2022 Encounter for general adult medical examination without abnormal findings DR GERALD TAVARES Facility:[facility] Start: 05-30-2022 End: 05-30-[address] LIZBETH TANG Facility:[facility] Start: 01-22-2022 End: 01-22-[address] GERALD TAVARES Facility:[facility] Start: 09-25-2021 End: 09-26-[address] DERIK LLOYD Facility:[facility] Start: 08-22-2021 (Procedure) Short Matteo Person [facility] Start: 08-22-2021 End: 08-22-2021 ambulatory Matteo Person Other [facility] Other Start: 08-12-2021 End: 08-12-2021 ambulatory Matteo Person Other [facility] Other Start: 08-12-2021 Telephone encounter Matteo Person [facility] Start: 07-30-2021 End: 07-30-2021 ambulatory Matteo Person Other [facility] Other Start: 07-30-2021 Telephone encounter [facility] Start: 07-26-2021 End: 07-26-2021 ambulatory Matteo Person Other [facility] Other Start: 07-26-2021 Office outpatient vi sit 25 minutes Matteo Person [facility] Start: 12-01-2018 End: 12-02-2018 Patient encounter procedure LIZBETH FLEMING Facility:[facility] Start: 03-16-2018 End: 03-17-2018 Patient encounter procedure R AMANDA ANN [facility] Start: 02-18-2018 End: 02-18-2018 Patient encounter procedure [facility] Start: 02-16-2018 End: 02-17-2018 Patient encounter procedure R AMANDA ANN [facility] Start: 02-15-2018 Patient encounter procedure [facility] Start: 02-15-2018 End: 02-15-2018 Patient encounter procedure [facility] Procedures Date Procedure Procedure Detail Performing [...] (disorder) Anna Hassan Laparoscopic cholecystectomy Anna Hassan [employer] 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) Anna Hassan [employer] Plan of Treatment Date Care Activity Detail Author Start: 05-02-2031 Screening for malign ant neoplasm of colon [facility] Start: 04-27-2028 Screening for malign ant neoplasm of cervix [facility] Start: 04-27-2026 Screening for malign ant neoplasm of cervix Pap Smear [facility] Start: 05-02-2024 End: 05-02-2024 Patient encounter procedure 05/02/2024 9:00 AM EST Office Visit [facility] [address] [place] [address] Herb Medel DO [address] [place] [address] [facility] Start: 12-20-2023 Influenza vaccination Influenza Vacc ine (#1) [facility] Start: 06-04-2023 Screening for malign ant neoplasm of breast Mammogram [facility] Start: 1970 Screening for malign ant neoplasm of colon [facility] Immunizations Immunization Date Immunization Notes Care Provider Fa aicha 12-23-2023 tetanus toxoid, reduced diphtheria toxoid, and acellular pertussis vaccine, adsorbed Ben De Leon DO Work Phone: [facility] 03-18-2021 SARS-CoV-2 (COVID-19 ) mRNA BNT-162b2 vax Anna Hassan [facility] Comment on above: Result Comment: 2022: [id number] 05-14-2012 hepatitis A vaccine, adult dosage Anna Hassan [facility] 05-14-2012 hepatitis B vaccine, pediatric or pediatric/adolescent dosage Anna Hassan [facility] NEGATED: Highlighted row has not occurred!05-18-2023 influenza virus vaccine, unspecified formulation Anna Hassan [facility] NEGATED: Highlighted row has not occurred!04-24-2023 influenza virus vaccine, unspecified formulation Castro Indianamini [facility] NEGATED: Highlighted row has not occurred!02-27-2021 influenza virus vaccine, unspecified formulation Anna Hassan [facility] Payers Date Payer Category Payer Unknown [id number] 1970 Unknown [id number] 2.16.8 [id number] 1970 Unknown [id number] 2.16.84 [id number] 1970 Unknown [id number] 2.16.84 0.1.502538.3.579.2.593 1970 Unknown [id number] 2.16.84 0.1.175004.3.579.2.593 1970 Unknown [id number] 2.16.84 0.1.110145.3.579.2.593 1970 Unknown [id number] 2.16.84 0.1.969255.3.579.2.593 1970 Unknown [id number] 2.16.84 0.1.919565.3.579.2.1259 1970 Unknown [id number] 2.16.840 .1.514093.3.579.2.1259 1970 Unknown [id number] 2.16.8 40.1.246014.3.579.2.727 1970 Unknown [id number] 2.16.8 40.1.264869.3.579.2.727 1970 Unknown [id number] 2.16.8 40.1.437556.3.579.2.727 1970 Unknown [id number] 2.16.8 40.1.092980.3.579.2.727 1970 Unknown [id number] 2.16.8 40.1.021516.3.579.2.727 1970 Unknown [id number] 2.16.8 40.1.049735.3.579.2.727 1970 Unknown [id number] 2.16.8 40.1.616769.3.579.2.727 1970 Unknown [id number] 2.16.8 40.1.783872.3.579.2.727 1970 Unknown [id number] 2.16.8 40.1.755927.3.579.2.727 1960 [facility] [id number] Self-pay Self Pay [id number] Unknown [id number] Social History Date Type Detail Facility Start: 04-27-2023 Sex Assigned At F [facility] Start: 05-02-2021 End: 08-04-2023 Tobacco smoking status Ex-smoker (finding) [facility] Comment on above: denies Tobacco smoking status Never [facility] Start: 1970 Sex Assigned At Female F [facility] Start: 11-15-2022 [facility] Start: 12-23-2023 Alcoholic beverage intake Lifetime non-drinker (finding) [facility] Start: 04-27-2023 History of Social function [facility] Start: 11-15-2022 Alcohol Comment caffeine: 1-2 cups/d ay [facility] Start: 11-10-2022 Gender identity Identifies as female gender (finding) [facility] Functional Status Date Assessment Result Facility 12-29-2023 Functional Status N/A [facility] 08-04-2023 Functional Status N/A [facility] 05-19-2023 Functional Status N/A [facility] 11-17-2022 Functional Status N/A [facility] Clinical Notes 07-26-2021 to 12-29-2023 [...] sitting or lying down. General instructions Take ixlf-rwm-kigssxu and prescription medicines only as told by [...] provider. Document Revised: 09/22/2022 Document Reviewed: 09/22/2022 [employer] Patient Education 2023 [employer]. Follow Up Care 12/29/2023 20:01:29 With:GERALD TAVARES Address: [facility] [address] Business (1) When:Within 3 Day(s) [facility] 12-29-2023 Note ED Patient Education Note Orthopedics [...] or lying down. General instructions ? Take blja-eyc-mhdhhmf and prescription medicines only as told by [...] provider. Document Revised: 09/22/2022 Document Reviewed: 09/22/2022 [employer] Patient Education ? 2023 [employer]. [facility] 12-29-2023 Evaluation + Plan note Extrac maggie from: Title:ED Note Author:Manav Fisher DO Date :12/29/23 Contusion of knee (S80.00XA: Contusion of unspecified knee, initial encounter) Orders: XR Knee Complete 4+ Views Right Future Scheduled Tests Laboratory* Magnesium Level 08/04/23 * Vitamin B12 Level 08/04/23 [facility] 09-04-2024 History of Present illness Narrative* Yumiko [...] infection RTC for recheck. documented in this encounterFre[facility] & Sports [id number] Instructions* Patient Instructions* Yumiko Ríos RN - 12/23/2023 9:30 AM EDT See progress note documented in this encounterFreeman Orthopaedics & Sports [id number] Hospital Discharge instructions Patient Education 08/04/2023 14:48:11 [...] drinks. ?Tomatoes and foods made with tomatoes. ?Summer Shade or spicy foods. ?Chocolate and peppermint. Do not drink alcohol. General instructions Take lcpr-mer-sgdqvoc and prescription medicines only as told by [...] provider. Document Revised: 06/23/2020 Document Reviewed: 06/23/2020 [employer] Patient Education 2022 [employer]. Follow Up Care 07/22/2023 13:53:31 With:Anna Hassan CNP Address: When:1 month [facility] 04-16-2024 Evaluation + Plan note Future Scheduled Tests Laboratory* Magnesium Level 08/04/23 * Vitamin B12 Level 08/04/23 [facility] 01-30-2024 Hospital Discharge instructions Patient [...] Follow these instructions at home: Medicines Take cdyo-bsr-qunpwng and prescription medicines only as told by [...] powder, vinegar, hot sauces, and barbecue sauce. ?Lutz fruit juices and citrus fruits, such as oranges, zaynab, and limes. ?Tomato-based foods, such as red sauce, chili, salsa, and pizza with red sauce. ?Fried and fatty foods, such as donuts, polish fries, potato chips, and high-fat dressings. ?High-fat [...] Document Reviewed: 10/15/2020 Elsevier Patient Education 2022 [employer]. Follow Up Care 05/18/2023 11:08:33 With:Anna Hassan CNP Address: When:3 months [facility] 11-01-2023 Evaluation note* Encounter Date [...] otitis media with effusion (ICD-10 - H65.93) [facility] Other 09-02-2023 Evaluation note* Encounter Date Diagnosis [...] dermati tis home care material was printed [facility] Other 07-31-2023 Hospital Discharge instructions Patient Education [...] treated at home. Treatment may include: Taking mskx-ais-dpmzkyz pain medicines. Following a clear liquid diet. [...] Follow these instructions at home: Medicines Take kiuw-jod-bhytstx and prescription medicines only as told by [...] provider. Document Revised: 01/16/2020 Document Reviewed: 01/16/2020 [employer] Patient Education 2022 [employer] Follow Up Care 10/15/2022 08:09:26 With:Anna Hassan CNP Address: When:1 month [facility] 07-31-2023 Evaluation + Plan note Future Scheduled Tests Radiology* CT Abdomen/Pelvis w/ Contrast 11/17/22 [facility] 02-10-2023 NotePROCEDURE: XR ANKLE RT [...] Electronically authenticated by: LIZBETH TANG Date: 2022-05-30 13:52[facility]02-10-2023 NotePROCEDURE: XR ANKLE RT MIN [...] Electronically authenticated by: LIZBETH TANG Date: 2022-05-30 13:52[facility]04-08-2022 Evaluation note* Encounter Date Diagnosis [...] - G89.29) Continue with current treatment plan. [facility] Other Evaluation + Plan note No data available for this section [facility] Evaluation + Plan note Future Appointments Appointment Date:09/07/2023 03:15:00 PM Scheduled Provider:Elina Boyer MD Location:[facility] Appointment Type:[facility] Follow Up Future Scheduled Tests Laboratory* Magnesium Level 08/04/23 * Vitamin B12 Level 08/04/23 [facility] Evaluation noteNo InformationNort OneBuckResume Other Evaluation note* Diagnosis Onset Date Resolution Status Contact dermatitis acute [facility] Work Phone: evaluation note* Diagnosis Puncture wound [...] History nerve block Hospitalization History See Above [facility] Discharge instructions No data available for this section [facility] Progress note No data available for this section [facility] Summary Purpose Family History Relationship [...] section and content) DATE CREATED AUTHOR 03/22/2018 [facility] DATE CREATED AUTHOR AUTHOR'S ORGANIZ ATION 03/27/2018 [facility] DATE CREATED AUTHOR AUTHOR'S ORGANIZ ATION 03/27/2018 [facility] DATE CREATED AUTHOR AUTHOR'S ORGANIZ ATION 03/07/2019 [facility] DATE CREATED AUTHOR AUTHOR'S ORGANIZ ATION 07/30/2021 [facility] DATE CREATED AUTHOR AUTHOR'S ORGANIZ ATION 06/05/[address] [facility] pital DATE CREATED AUTHOR AUTHOR'S ORGANIZ ATION 12/24/2023 [facility] DATE CREATED AUTHOR AUTHOR'S ORGANIZ ATION 12/31/2023 [facility] REASON FOR VISIT (unrecogniz ed section [...] November 16, 2023 End: November 16, 2023 Photographer Scientific Relationship Specialty Start Date End Date Unallocated, [place] Provider, [place] [address] PCP - General Family Medicine [...] BE BASED ON THE PRIMARY CLINICAL RECORDS. [facility]. provides no warranty or guarantee of the accuracy or completeness of information in this document.
[2024-05-28 12:15] LABS: Age Gdln ACOG Testing Note (.); HPV Aptima Negative (Negative); IGP, Aptima HPV, rfx 16/18,45 Note (.)
== END 2024-05-24 20:16 | disposition home or self-care (01) ==
LOC: LAB 20:15
PROVIDERS: PCP Family Medicine; Visit Provider Physician Assistant
DX: Z01.419 Encounter for gynecological examination (general) (routine) without abnormal findings (principal)
CPT/HCPCS: 87624; 88175

== ENCOUNTER 2024-07-28 12:45 | Outpatient (OUT) | payer BC, SELFPAY ==
--- NOTE | 2024-07-28 13:00 | CA_ITS ---
Patient Name: COLIN MACIAS MR#: [id number] : 1970 Exam Date: 07/28/2024 Ordering Doctor: NITZA KAISER ECHOCARDIOGRAM REPORT PROCEDURE: CA ECHO DOPPLER COMPLETE INDICATIONS: Pulsatile tinnitus COMPARISON: None. DESCRIPTION: COMPLETE ECHOCARDIOGRAM Real-time transthoracic echocardiography with 2D, M-mode, spectral and color flow Doppler performed. QUALITY: Technical quality was good. LEFT VENTRICLE: Normal chamber size. Normal left ventricular wall thickness. LV EF: Global left ventricular systolic function is hyperdynamic; visually estimated ejection fraction 65 to 70%. No significant wall motion abnormalities. DIASTOLIC: Normal diastolic function. ATRIAL SEPTUM: Visually appears intact. LEFT ATRIUM: Normal chamber size. RIGHT ATRIUM: Normal chamber size. RIGHT VENTRICLE: Normal chamber size. Normal right ventricular systolic function. TRICUSPID VALVE: Normal mobility and thickness. No stenosis with mild regurgitation. No evidence of pulmonary hypertension. RVSP 32 mmHg MITRAL VALVE: Normal mobility and thickness. No evidence of mitral valve stenosis. There is no mitral annular calcification. No mitral regurgitation. AORTIC VALVE: Normal trileaflet appearance. No visible sclerosis. Normal leaflet mobility. No evidence of aortic valve stenosis. No aortic regurgitation. AORTIC ROOT: Normal diameter and appearance. Ascending aorta is normal in size. PULMONIC VALVE: Normal thickness and mobility. No stenosis. Trivial regurgitation. PERICARDIUM: Anterior free space; trivial effusion versus fat pad. IVC: Collapses with inspirations. IVC is normal in size. CONCLUSION: 1. Global left ventricular systolic function is hyperdynamic; visually estimated ejection fraction is 65 to 70% 2. Normal right ventricular size and systolic function 3. Normal diastolic function 4. The left atrium is normal in size 5. Mild tricuspid regurgitation 6. Anterior free space; trivial effusion versus fat pad Adult Echocardiography Procedure Report Left Ventricle LVEDD (3.7 - 5.6 cm): 4.03 cm LVESD (2.2 - 4.0 cm): 2.43 cm LVIVS thickness (0.6 - 1.2 cm): 0.96 cm LVPW thickness (0.5 - 1.0 cm): 0.83 cm e': 0.11 m/s E - e': 5.79 LVOT Max Gradient: 2.99 mm[Hg] LVOT Area (cm2): 0.87 m/s Peak Velocity (LVOT): 0.87 m/s Mean Velocity (LVOT): 0.58 m/s LVOT Diameter 2.02 cm Left Atrium LA Volume Index (2D A2C): 29.00 ml/m2 Left Atrium Systolic Dimension: 2.96 cm Mitral Valve MV E to A Ratio: 1.13 Mitral Valve A-Wave Peak Velocity: 0.55 m/s Mitral Valve E-Wave Peak Velocity: 0.62 m/s Right Ventricle Aorta AO Root Diam: 2.84 cm Ascending Ao Diam: 2.57 cm Aortic Valve AoV Area (Peak Hollis): 2.53 cm2, 2.53 cm2 AoV Area (VTI): 3.02 cm2, 3.02 cm2 Peak Velocity(Antegrade Flow): 1.10 m/s Peak Gradient(Antegrade Flow): 4.80 mm[Hg] Mean Velocity(Antegrade Flow): 0.72 m/s Mean Gradient(Antegrade Flow): 2.41 mm[Hg] Velocity Time Integral: 25.88 cm Tricuspid Valve Peak Velocity (Regurgitant Flow): 2.71 m/s, 2.59 m/s Pulmonic Valve Mean Gradient: 2.02 mm[Hg] Mean Velocity: 0.65 m/s Peak Velocity: 1.04 m/s, 0.92 m/s Peak Gradient: 3.37 mm[Hg], 4.33 mm[Hg] Right Atrium Right Atrium Systolic Pressure: 58.72 ml, 58.72 ml Dictated by: Ryan Nath M.D. on 07/28/2024 at 16:02 Approved by: Ryan Nath M.D. on 07/28/2024 at 16:05
== END 2024-07-28 12:46 | disposition home or self-care (01) ==
LOC: CARD 12:45
PROVIDERS: PCP Family Medicine
DX: H93.A9 Pulsatile tinnitus, unspecified ear (principal)
CPT/HCPCS: 93306

== ENCOUNTER 2024-08-29 00:13 | Emergency (ER) | payer BC, SELFPAY ==
[2024-08-29] VITALS (20 sets, daily range): BP systolic 114–161; BP diastolic 65–89; PULSE 56–73; TEMP 36.9; O2SAT 92–98; BMI 28.3
--- OUTSIDE RECORDS SUMMARY | 2024-08-29 00:22 | XMS_ITS | CCD ---
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 [address] [place] [address] MCV (RBC) [Entitic vol] 88 fL Normal 80-100 [facility] Comment on above: Performed By: #### C BCA, CMP #### [facility] ([id number]) [address] [place] [address] Monocytes (Bld) [#/Vol] 0.4 10*3/uL Normal 0-0.9 [facility] Comment on above: Performed By: #### C BCA, CMP #### [facility] ([id number]) [address] [place] [address] Monocytes/100 WBC (Bld) 8.7 % Normal [facility] Comment on above: Performed By: #### C BCA, CMP #### [facility] ([id number]) [address] [place] [address] Neutrophils/100 WBC (Bld) 47.2 % Normal [facility] Comment on above: Performed By: #### C BCA, CMP #### [facility] ([id number]) [address] [place] [address] Platelet mean volume (Bld) [Entitic vol] 7.6 fL Normal 7-12 [facility] Comment on above: Performed By: #### C BCA, CMP #### [facility] ([id number]) [address] [place] [address] Platelets (Bld) [#/Vol] 272 10*3/uL Normal 150-450 [facility] Comment on above: Performed By: #### C BCA, CMP #### [facility] ([id number]) [address] [place] [address] RBC COUNT 4.90 X10E12/L Normal 3.80-5.20 [facility] Comment on above: Performed By: #### C BCA, CMP #### [facility] ([id number]) [address] [place] [address] WBC (Bld) [#/Vol] 5.1 10*3/uL Normal 4.0-11.0 [facility] Comment on above: Performed By: #### C BCA, CMP #### [facility] ([id number]) [address] [place] [address] CBC with auto diffon 025 Basophils (Bld) [#/Vol] 0.1 10*3/uL [facility] Basophils/100 WBC (Bld) 1.4 % [facility] Eosinophils (Bld) [#/Vol] 0.2 10*3/uL [facility] Eosinophils/100 WBC (Bld) 3.9 % [facility] Erythrocyte distribution width (RBC) [Ratio] 12.8 % 11.5 - 15.0 % [facility] Hematocrit (Bld) [Volume fraction] 43.3 % 35 - 47 % [facility] Hemoglobin (Bld) [Mass/Vol] 14.6 g/dL 11.7 - 15.5 g/dL [facility] Lymphocytes (Bld) [#/Vol] 2 10*3/uL [facility] Lymphocytes/100 WBC (Bld) 38.8 % [facility] MCH (RBC) [Entitic mass] 29.8 pg 27 - 34 pg [facility] MCHC (RBC) [Mass/Vol] 33.7 g/dL 32 - 36 g/dL [facility] MCV (RBC) [Entitic vol] 88 fL 80 - 100 fL [facility] Monocytes (Bld) [#/Vol] 0.4 10*3/uL [facility] Monocytes/100 WBC (Bld) 8.7 % [facility] Neutrophils (Bld) [#/Vol] 2.4 10*3/uL [facility] Neutrophils/100 WBC (Bld) 47.2 % [facility] Platelet mean volume (Bld) [Entitic vol] 7.6 fL 7 - 12 fL [facility] Platelets (Bld) [#/Vol] 272 10*3/uL [facility] RBC (Bld) [#/Vol] 4.9 10*6/uL [facility] WBC corrected for nucl RBC Auto (Bld) [#/Vol] 5.1 [facility] COMPREHENSIVE METABOLIC PANE Severino 06-10-2024 Albumin [Mass/Vol] 4.6 g/dL Normal 3.2-5.3 [facility] Comment on above: Performed By: #### C BCA, CMP #### [facility] ([id number]) [address] [place] [address] ALP [Catalytic activity/Vol] 46 U/L Normal 39-130 [facility] Comment on above: Performed By: #### C BCA, CMP #### [facility] ([id number]) [address] [place] [address] ALT [Catalytic activity/Vol] 23 U/L Normal 0-31 [facility] Comment on above: Performed By: #### C BCA, CMP #### [facility] ([id number]) [address] [place] [address] Anion gap [Moles/Vol] 5 mmol/L Normal 5-15 [facility] Comment on above: Performed By: #### C BCA, CMP #### [facility] ([id number]) [address] [place] [address] AST [Catalytic activity/Vol] 19 U/L Normal 0-41 [facility] Comment on above: Performed By: #### C BCA, CMP #### [facility] ([id number]) [address] [place] [address] Bilirubin [Mass/Vol] 0.9 mg/dL Normal 0.3-1.2 [facility] Comment on above: Performed By: #### C BCA, CMP #### [facility] ([id number]) [address] [place] [address] Calcium [Mass/Vol] 9.4 mg/dL Normal 8.5-10.5 [facility] Comment on above: Performed By: #### C BCA, CMP #### [facility] ([id number]) [address] [place] [address] Chloride [Moles/Vol] 103 mmol/L Normal 98-109 [facility] [place] [facility] Comment on above: Performed By: #### C BCA, CMP #### [facility] ([id number]) [address] [place] [address] CO2 [Moles/Vol] 32 mmol/L Normal 22-32 [facility] Comment on above: Performed By: #### C BCA, CMP #### [facility] ([id number]) [address] [place] [address] Creatinine [Mass/Vol] 0.83 mg/dL Normal 0.40-1.00 [facility] Comment on above: Result Comment: METH OD TRACEABLE TO IDMS STANDARD Performed By: #### C BCA, CMP #### [facility] ([id number]) [address] [place] [address] GFR/1.73 sq M.predicted among non-blacks MDRD (S/P/Bld) [Vol rate/Area] 84 mL/min/{1.73_m2} Normal >59 [facility] Comment on above: Result Comment: Reported eGFR is based on the CKD-EPI 2020 equation that does not use a race coefficient. Performed By: #### C BCA, CMP #### [facility] ([id number]) [address] [place] [address] Glucose [Mass/Vol] 65 mg/dL Normal 65-99 [facility] Comment on above: Performed By: #### C BCA, CMP #### [facility] ([id number]) [address] [address] [place] [address] Potassium [Moles/Vol] 4.2 mmol/L Normal 3.5-5.0 [facility] Comment on above: Performed By: #### C BCA, CMP #### [facility] ([id number]) [address] [place] [address] Protein [Mass/Vol] 7.2 g/dL Normal 6.0-8.0 [facility] Comment on above: Performed By: #### C BCA, CMP #### [facility] ([id number]) [address] [place] [address] Sodium [Moles/Vol] 140 mmol/L Normal 134-146 [facility] Comment on above: Performed By: #### C BCA, CMP #### [facility] ([id number]) [address] [place] [address] Urea nitrogen [Mass/Vol] 14 mg/dL Normal 5-23 [facility] Comment on above: Performed By: #### C BCA, CMP #### [facility] ([id number]) [address] [place] [address] Comprehensive metabolic pane severino 06-10-2024 Albumin [Mass/Vol] 4.6 g/dL 3.2 - 5.3 g/dL [facility] ALP [Catalytic activity/Vol] 46 U/L 39 - 130 U/L [facility] ALT No additional P-5'-P [Catalytic activity/Vol] 23 U/L 0 - 31 U/L [facility] Anion gap [Moles/Vol] 5 mmol/L 5 - 15 mmol/L [facility] AST [Catalytic activity/Vol] 19 U/L 0 - 41 U/L [facility] Bilirubin [Mass/Vol] 0.9 mg/dL 0.3 - 1.2 mg/dL [facility] Calcium [Mass/Vol] 9.4 mg/dL 8.5 - 10. 5 mg/dL [facility] Chloride [Moles/Vol] 103 mmol/L 98 - 109 mmol/L [facility] CO2 [Moles/Vol] 32 mmol/L 22 - 32 mmol/L [facility] Creatinine [Mass/Vol] 0.83 mg/dL 0.40 - 1.00 mg/dL [facility] Comment on above: METHOD TRACEABLE TO IDAK STANDARD eGFR (CKD-EPI)non-race dependent 84 - PINF [facility] Comment on above: Reported eGFR is based on the CKD-EPI 2020 equation that does not use a race coefficient. Glucose [Mass/Vol] 65 mg/dL 65 - 99 mg/dL [facility] Potassium [Moles/Vol] 4.2 mmol/L 3.5 - 5.0 mmol/L [facility] Protein [Mass/Vol] 7.2 g/dL 6.0 - 8.0 g/dL [facility] Sodium [Moles/Vol] 140 mmol/L 134 - 146 mmol/L [facility] Urea nitrogen [Mass/Vol] 14 mg/dL 5 - 23 mg/dL [facility] IGP,APTIMA HPV,AGE GDLNon AGE GDLN ACOG TESTING Note . [facility] Comment on above: TESTS RESULT FLAG UN ITS REF RANGE LAB Clinician Provided Cytology Information Source.............Cervix;Endocervix No. of containers..01 ThinPrep Vial Age Algo ACOG Emma... 30-65 01 FLAG LEGEND: L-Low Normal,H-High Normal,LL-Alert Low,HH-Alert High <-Panic Low,>-Panic High,A-Abnormal,AA-Critical Abnormal Performed at: 01 =G [facility] [place] [address] Crystal Mckeon MD, HPV APTIMA Negative Negative [facility] Comment on above: This nucleic acid am plification test detects fourteen high- risk HPV types (16,18,31,33,35,39,45,51,52,56,58,59,66,68) without differentiation. Performed at: =G - [facility] [id number] Fashion Merchandiser: Crystal Mckeon MD, Phone: [phone] Performed at: - [facility] [id number] Fashion Merchandiser: Crystal Mckeon MD, Phone: [phone] IGP, APTIMA HPV, RFX 16/18,45 Note . [facility] Comment on above: TESTS RESULT FLAG UN ITS REF RANGE LAB DIAGNOSIS: 02 NEGATIVE FOR INTRAEPITHELIAL LESION OR MALIGNANCY. CELLULAR CHANGES ASSOCIATED WITH ATROPHY ARE PRESENT. Specimen adequacy: 02 Satisfactory for evaluation. Endocervical component may not be distinguished in cases of atrophy. Performed by: 02 Isadora Jerome, Mushroom Press Operator (ASCP) . 02 Note: Note 02 The Pap smear is a screening test designed to aid in the detection of premalignant and malignant conditions of the uterine cervix. It is not a diagnostic procedure and should not be used as the sole means of detecting cervical cancer. Both false-positive and false-negative reports do occur. Test Methodology: Note 02 This liquid based ThinPrep(R) pap test was screened with the use of an image guided system. HPV Genotype Reflex Note 02 Criteria not met, HPV Genotype not performed. FLAG LEGEND: L-Low Normal,H-High Normal,LL-Alert Low,HH-Alert High <-Panic Low,>-Panic High,A-Abnormal,AA-Critical Abnormal Performed at: 02 [facility] [address] [place] [place] [address] Crystal Mckeon MD, BRUSH-SPATULA CERVIX ENDOCERVIX [facility] XR Knee Complete 4+ Views [facility] 12-30-2023 XR Knee Complete 4+ Views Right [...] mGy = na DAP = na Normal [facility] ED Clinical Summaryon 2023 ED Clinical Summary ED Clinical Summary [address] [address] ED Clinical Summary Person Information Name: TIERA WAKEFIELD [facility] Age: 53 Years : 1970 Sex: Female Language: Algerian PCP: GERALD TAVARES DO Marital Status: Phone: [phone] Visit Id: Visit Reason: Knee pain-swelling; Knee [...] 12/29/2023 21:33:24 12/29/2023 21:33:24 12/29/2023 21:33:24 AD[address]ESS: [address] [id number] [facility] DOC NOTES: MEDICAL INFORMATION: Prescriptions Given: Medications to Continue with No Changes Other Medications acetaminophen-hydrocodone ([place] 325 mg-5 mg oral tablet) 1 Tablets [...] Follow up: With: Address: When: GERALD [place] [address] Sk[employer]jar (1) In 3 days DIAGNOSIS: Contusion of knee Normal [facility] ED Note-Physicianon 12-29-19 ED Note-Physician ED Note-Physician Basic Information Time Seen: Manav Fisher DODoron 12/29/2023 21:11 Chief Complaint pt tripped over [...] and Complexity of Problems Differential Diagnosis: [] [facility] Data External documents reviewed: N/A My EKG [...] Information GERALD TAVARES In 3 days [address] [place] [address]- Business (1) Additional Instructions: Patient Education Contusion Problem List/Past Medical History Ongoing Acid reflux Austin's esophagus Colon polyp Degenerative disc disease Hiatal hernia History of colon polyps History of diverticulitis Irregular Z line of esophagus OA - Osteoarthritis Rectal polyp Schatzki's ring Historical Dysphagia Esophagitis, [place] grade B Gallbladder stones Irregular bowel habits [...] Topical, Daily, Not taking Mylanta Maximum Strength [place] 325 mg-5 mg oral tablet, 1 tab(s), [...] smoker, qu (more content not included)... Normal [facility] Comment on above: Result Comment: Elec tronically Signed By: Phillip DO, Manav S.\.br\Date and Time Signed: 12/29/23 21:22 EDT ED Patient Summaryon 024 ED Patient Summary ED Patient Summary [place] [id number] Patient Discharge Instructions Person Information Name: TIERA WAKEFIELD Age: 53 Years Arrival Date: 12/29/2023 19:59:47 Discharge Diagnosis: Contusion of knee Primary Care Physician: GERALD TAVARES DO Provider Information Primary Provider: Manav Fisher DO Advanced S3B Multi Sensor Operator:None The exam and treatment you received in the Emergency Department were for an urgent problem and are not intended as complete care. It is important that you follow up with a doctor, nurse practitioner, or physician?s funeral director's assistant for ongoing care. If your symptoms become worse or you do not improve as expected and you are unable to reach your usual health care provider, you should return to the Emergency Department. We are available 24 hours a day. TIERA WAKEFIELD has been given the following list of patient education materials, prescriptions and follow-up instructions: Follow-up Instructions: With: Address: When: GERALD TAVARES [employer] [place] [id number] Business (1) In 3 days In the event that this physician does not participate in your insurance network, please consult with your insurance company to find a nearby participating provider. Patient Education Materials: Contusion A MESSAGE TO ALL PATIENTS REGARDING OPIOIDS PRESCRIPTION OPIOIDS: WHAT YOU NEED TO KNOW Prescription opioids can be used to help relieve sxvifoeh-yk-hofoqy pain and are often prescribed following a [...] be struggling with addiction, tell your health director of primary care and ask for guidance or call [facility]?S National Helpline at 9-789-749-DBES. v Source: [facility] (more content not included)... Normal [facility] Reminderson 08-05-2023 Reminders - From: Anna Hassan CNP To: Jeanette Lloyd; Sent: 08/04/2023 15:01:31 EDT Show up: 08/04/2023 15:02:00 EDT Subject: Ambulatory Reminder Reminder/Recall EGD in 2026. 07/13/2026 3 year EGD recall From: Jeanette Lloyd To: [facility] - Reminders/Recalls; Sent: 08/05/2023 08:05:42 EDT ! Show up: 05/21/2026 08:05:00 EST Due Date/Time: 06/18/2026 08:05:00 EST Normal [facility] Ambulatory Visit Summaryon 0 08-04-2023 Ambulatory Visit Summary TIERA WAKEFIELD Robert :1970 Visit Date:08/04/2023 Ambulatory Visit Instructions [...] hydroxide/simethicone (Mylanta Maximum Strength) BMX Solution acetaminophen-hydrocodone ([place] 325 mg-5 mg oral tablet) albuterol (Albuterol [...] EDT With: Merlin DEE, Elina Biswas Where: [facility] Invalid Interpretation Code Acid reflux, Print Label By Order Location\.b r\ Vitamin B12 Level, Blood, Routine collect, 08/04/23, Order for future visit, Lab Collect, Austin's esophagus [facility] Gastroenterology Office/Clin ic Noteon 08-04-2023 Gastroenterology [...] day(s), # 90 cap(s), Refills(s) 2, Pharmacy: [facility], 160, cm, 08/04/23 14:50:00 EDT, Height/Length [...] revealed irregular (more content not included)... Normal [facility] Comment on above: Result Comment: Elec tronically Signed By: Anna Hassan CNP\.br\Date and Time Signed: 08/04/23 15:04 EDT Patient [...] Tomatoes and foods made with tomatoes. ? [place] or spicy foods. ? Chocolate and peppermint. ? Do not drink alcohol. General instructions ? Take zkhf-anu-fchqoft and prescription medicines only as told by [...] Reviewed: 06/23/2020 Elsevier Patient Education ? 2022 [employer] Normal [facility] Operative Reporton Operative Report [id number] Normal [facility] Physician Orderon 07-14-2023 Physician Order [id number] Normal [facility] Quick Strepon 02-18-2023 S. pyogenes Org specific cx Ql (Throat) Negative [place] Other Quick Strep Perfect [facility] Given Goods Other CBC AUTO DIFFon 06-04-2022 BASO # 0.0 103/ul Normal 0.0-0.1 [facility] Comment on above: Performed By: #### C BC #### [facility] [address] [place] [address] Dr. Jacob Mcdaniel Basophils/100 WBC (Bld) 0.8 % Normal 0.2-2.0 [facility] Comment on above: Performed By: #### C BC #### [facility] [address] [place] [address] Dr. Jacob Mcdaniel EO # 0.2 103/ul Normal 0.0-0.7 [facility] Comment on above: Performed By: #### C BC #### [facility] [address] [place] [address] Dr. Jacob Mcdaniel Eosinophils/100 WBC (Bld) 3.0 % Normal 0.9-7.0 [facility] Comment on above: Performed By: #### C BC #### [facility] [address] [place] [address] Dr. Jacob Mcdaniel Erythrocyte distribution width (RBC) [Ratio] 12.1 % Normal 11.0-15.0 [facility] Comment on above: Performed By: #### C BC #### [facility] [address] [place] [address] Dr. Jacob Mcdaniel Hematocrit (Bld) [Volume fraction] 42.5 % Normal 36.0-48.0 [facility] Comment on above: Performed By: #### C BC #### [facility] [address] [place] [address] Dr. Jacob Mcdaniel Hemoglobin (Bld) [Mass/Vol] 14.7 g/dL Normal 12.0-16.0 [facility] Comment on above: Performed By: #### C BC #### [facility] [address] [place] [address] Dr. Jacob Mcdaniel IG # 0.02 10e3/ul Normal 0.00-0.03 [facility] Comment on above: Performed By: #### C BC #### [facility] [address] [place] [address] Dr. Jacob Mcdaniel IG % 0.4 % Normal 0.0-0.5 [facility] Comment on above: Performed By: #### C BC #### [facility] [address] [place] [address] Dr. Jacob Mcdaniel LYMPH # 1.7 103/ul Normal 1.2-3.8 [facility] Comment on above: Performed By: #### C BC #### [facility] [address] [place] [address] Dr. Jacob Mcdaniel Lymphocytes/100 WBC (Bld) 31.8 % Normal 20.5-60.0 [facility] Comment on above: Performed By: #### C BC #### [facility] [address] [place] [address] Dr. Jacob Mcdaniel MANUAL DIFF REQ NO Normal [facility] Comment on above: Performed By: #### C BC #### [facility] [address] [place] [address] Dr. Jacob Mcdaniel MCH (RBC) [Entitic mass] 30.1 pg Normal 26.7-34.0 [facility] Comment on above: Performed By: #### C BC #### [facility] [address] [place] [address] Dr. Jacob Mcdaniel MCHC (RBC) [Mass/Vol] 34.6 g/dL Normal 29.9-35.2 [facility] Comment on above: Performed By: #### C BC #### [facility] [address] [place] [address] Dr. Jacob Mcdaniel MCV (RBC) [Entitic vol] 86.9 fL Normal 81.0-99.0 [facility] Comment on above: Performed By: #### C BC #### [facility] [address] [place] [address] Dr. Jacob Mcdaniel MONO # 0.3 103/ul Normal 0.3-0.8 [facility] Comment on above: Performed By: #### C BC #### [facility] [address] [place] [address] Dr. Jacob Mcdaniel Monocytes/100 WBC (Bld) 6.2 % Normal 1.7-12.0 [facility] Comment on above: Performed By: #### C BC #### [facility] [address] [place] [address] Dr. Jacob Mcdaniel NEUT # 3.1 103/ul Normal 1.4-6.5 [facility] Comment on above: Performed By: #### C BC #### [facility] [address] [place] [address] Dr. Jacob Mcdaniel Neutrophils/100 WBC (Bld) 57.8 % Normal 43.0-75.0 [facility] Comment on above: Performed By: #### C BC #### [facility] [address] [place] [address] Dr. Jacob Mcdaniel Platelet mean volume (Bld) [Entitic vol] 8.9 fL Critically low 9.5-13.5 [facility] Comment on above: Performed By: #### C BC #### [facility] [address] [place] [address] Dr. Jacob Mcdaniel PLT 263 103/ul Normal 150-450 [facility] Comment on above: Performed By: #### C BC #### [facility] [address] [place] [address] Dr. Jacob Mcdaniel RBC 4.89 106/ul Normal 4.20-5.40 [facility] Comment on above: Performed By: #### C BC #### [facility] [address] [place] [address] Dr. Jacob Mcdaniel WBC 5.3 103/ul Normal 4.0-11.0 [facility] Comment on above: Performed By: #### C BC #### [facility] [address] [place] [address] Dr. Jacob Mcdaniel MG MAMM SCREEN 3D ISABEL CADon 06-04-2022 MG MAMM SCREEN 3D ISABEL CAD Patient: TIERA WAKEFIELD Exam Date: 06/04/2022 : 1970 Gender:F Ordering : DR HERB MEDEL . Admission #: [id number] Family : DR GERALD TAVARES D.O. Order #: [id number] CLICK HERE TO VIEW EXAM RADIOLOGY REPORT [...] kidney cancer at age 64. LOCATION: [facility] BREAST COMPOSITION: Heterogeneously dense,which may obscure [...] Tang MD on 06/04/2022 at 14:03 Normal [facility] PROF 14(COMP METB)on 023 Albumin [Mass/Vol] 4.0 g/dL Normal 3.4-5.0 [facility] Comment on above: Performed By: #### T MACKENZIE, CMP #### [facility] [address] [place], [place] [address] Dr. Jacob Mcdaniel Albumin/Globulin [Mass ratio] 1.2 {ratio} Normal [facility] Comment on above: Performed By: #### T MACKENZIE, CMP #### [facility] [address] [place], [place] [address] Dr. Jacob Mcdaniel ALP [Catalytic activity/Vol] 69 U/L Normal 46-116 [facility] Comment on above: Performed By: #### T SH, CMP #### [facility] [address] [address] [address] Jacob Mcdaniel ALT [Catalytic activity/Vol] 40 U/L Normal 14-59 [facility] Comment on above: Performed By: #### T SH, CMP #### [facility] [address] [address] [address] Jacob Mcdaniel Anion gap [Moles/Vol] 12.1 mmol/L Normal [facility] Comment on above: Performed By: #### T SH, CMP #### [facility] [address] [address] [address] Jacob Mcdaniel AST [Catalytic activity/Vol] 21 U/L Normal 15-37 [facility] Comment on above: Performed By: #### T SH, CMP #### [facility] [address] [address] [address] Jacob Mcdaniel Bilirubin [Mass/Vol] 0.8 mg/dL Normal 0.2-1.0 [facility] Comment on above: Performed By: #### T MACKENZIE, CMP #### [facility] [address] [address] [address] Jacob Mcdaniel Calcium [Mass/Vol] 9.5 mg/dL Normal 8.5-10.1 [facility] Comment on above: Performed By: #### T MACKENZIE, CMP #### [facility] [address] [address] [address] Jacob Mcdaniel Chloride [Moles/Vol] 103 mmol/L Normal 98-107 [facility] Comment on above: Performed By: #### T SH, CMP #### [facility] [address] [address] [address] Jacob Mdcaniel CO2 [Moles/Vol] 31.9 mmol/L Normal 21.0-32.0 [facility] Comment on above: Performed By: #### T SH, CMP #### [facility] [address] [address] [address] Jacob Mcdaniel Creatinine [Mass/Vol] 0.84 mg/dL Normal 0.55-1.02 [facility] Comment on above: Performed By: #### T SH, CMP #### [facility] [address] [address] [address] Jacob Mcdaniel EGFR-AF [place]TH [place]OREAN >60 Normal >=60 [facility] Comment on above: Performed By: #### T SH, CMP #### [facility] [address] [address] [address] Jacob Mcdaniel EGFR-NON AF [place] >60 Normal >=60 [facility] Comment on above: Performed By: #### T SH, CMP #### [facility] [address] [address] [address] Jacob Mcdaniel Globulin (S) [Mass/Vol] 3.4 g/dL Normal [facility] Comment on above: Performed By: #### T SH, CMP #### [facility] [address] [place] [address] Dr. Jacob Mcdaniel Glucose [Mass/Vol] 105 mg/dL Normal 74-106 [facility] Comment on above: Performed By: #### T SH, CMP #### [facility] [address] [address] [address] Jacob Mcdaniel Potassium [Moles/Vol] 4.0 mmol/L Normal 3.5-5.1 [facility] Comment on above: Performed By: #### T SH, CMP #### [facility] [address] [address] [address] Jacob Mcdaniel Protein [Mass/Vol] 7.4 g/dL Normal 6.4-8.2 [facility] Comment on above: Performed By: #### T SH, CMP #### [facility] [address] [address] [address] Jacob Mcdaniel Sodium [Moles/Vol] 143 mmol/L Normal 136-145 [facility] Comment on above: Performed By: #### T SH, CMP #### [facility] [address] [address] [address] Jacob Mcdaniel Urea nitrogen [Mass/Vol] 12.0 mg/dL Normal 7.0-18.0 [facility] Comment on above: Performed By: #### T MACKENZIE, CMP #### [facility] [address] [place], [place] [address] Dr. Jacob Mcdaniel Urea nitrogen/Creatinin e [Mass ratio] 14.3 mg/mg Normal [facility] Comment on above: Performed By: #### T SH, CMP #### [facility] [address] [place], [place] [address] Dr. Jacob Mcdaniel TSHon 06-04-2022 TSH 0.619 uIU/mL Normal 0.358-3.740 [facility] Comment on above: Performed By: #### T MACKENZIE, CMP ####[facility] [address] [address]Dr. Jacob Mcdaniel VIT B12 AND FOLATEon 023 Cobalamin (Vitamin B12) [Mass/Vol] 396.0 pg/mL Normal 193.0-986.0 [facility] Comment on above: Performed By: #### B 12FOL ####[facility] [address] [id number]. Jacob Mcdaniel FOLATE 9.30 ng/mL Normal 8.60-58.90 [facility] Comment on above: Performed By: #### B 12FOL ####[facility] [address] [id number]. Jacob Mcdnaiel XR DEXA BONE DENSITYon 06-04 XR DEXA [...] by: FRANK MONROY Date: 2022-06-04 13:14 Normal [facility] XR CSPINE 2_3 VIEWSon 2022 XR [...] significant at C6-C7 Electronically authenticated by: LIZBETH TNAG Date: 2022-05-30 13:58 Normal [facility] PAP ACOG PANEL 2: 30 to 65on 01-29-2022 . . Normal [facility] Comment on above: Result Comment: Perf ormed at: BA Performed By: #### [id number] #### [facility] [address] [address] [address] Jacob Mcdaniel Age Gdln ACOG Testing 30-65 Normal [facility] Comment on above: Performed By: #### [id number] #### [facility] [address] [address] [address] Jacob Mcdaniel DIAGNOSIS: Comment Normal [facility] Comment on above: Result Comment: NEGA TIVE FOR INTRAEPITHELIAL LESION OR MALIGNANCY. CELLULAR CHANGES ASSOCIATED WITH ATROPHY AND INFLAMMATION ARE PRESENT. Performed at: BA Performed By: #### [id number] #### [facility] [address] [address] [address] Jacob Mcdaniel HPV Aptima Negative Normal Negative [facility] Comment on above: Result Comment: This nucleic acid amplification test detects fourteen high-risk HPV types (16,18,31,33,35,39,45,51,52,56,58,59,66,68) without differentiation. Performed at: =G Performed By: #### [id number] #### [facility] [address] [address] [address] Jacob Mcdaniel Methodology: Comment Normal [facility] Comment on above: Result Comment: This liquid based ThinPrep(R) pap test was screened with the use of an image guided system. Performed at: WB Performed By: #### [id number] #### [facility] [address] [place] [address] Dr. Jacob Mcdaniel Note: Comment Normal [facility] Comment on above: Result Comment: The Pap smear is a screening test designed to aid in the detection of premalignant and malignant conditions of the uterine cervix. It is not a diagnostic procedure and should not be used as the sole means of detecting cervical cancer. Both false-positive and false-negative reports do occur. . Performed at: WB Performed By: #### [id number] #### [facility] [address] [place] [address] Dr. Jacob Mcdaniel Performed by: Comment Normal [facility] Comment on above: Result Comment: Codey Lorenzo, [employer] Operator (ASCP) Performed at: BA Performed By: #### 4 [id number] #### [facility] [address] [place] [address] Dr. Jacob Mcdaniel Specimen adequacy: Comment Normal [facility] Comment on above: Result Comment: Sati sfactory for evaluation. Endocervical and/or squamous metaplastic cells (endocervical component) are present. Performed at: BA Performed By: #### [id number] #### [facility] [address] [place] [address] Dr. Jacob Mcdaniel AMYLASEon 09-25-2021 Amylase [Catalytic activity/Vol] 40 U/L Normal 25-115 [facility] Comment on above: Performed By: #### C MP, ZEYNEP, LIPA ####[facility] [address] [address]Dr. Jacob Mcdaniel CBC AUTO DIFFon 09-25-2021 BASO # 0.0 103/ul Normal 0.0-0.1 [facility] Comment on above: Performed By: #### C BC ####[facility] [address] [address]Dr. Jacob Mcdaniel Basophils/100 WBC (Bld) 0.6 % Normal 0.2-2.0 [facility] Comment on above: Performed By: #### C BC ####[facility] [address] [id number]. Jacob Mcdaniel EO # 0.1 103/ul Normal 0.0-0.7 [facility] Comment on above: Performed By: #### C BC ####[facility] [address] [address]Dr. Jacob Mcdaniel Eosinophils/100 WBC (Bld) 1.5 % Normal 0.9-7.0 [facility] Comment on above: Performed By: #### C BC ####[facility] [address] [place], [place] [address]Dr. Jacob Mcdaniel Erythrocyte distribution width (RBC) [Ratio] 12.2 % Normal 11.0-15.0 [facility] Comment on above: Performed By: #### C BC ####[facility] [address] [place], [place] [address]Dr. Jacob Mcdaniel Hematocrit (Bld) [Volume fraction] 41.6 % Normal 36.0-48.0 [facility] Comment on above: Performed By: #### C BC ####[facility] [address] [place], [place] [address]Dr. Jacob Mcdaniel Hemoglobin (Bld) [Mass/Vol] 13.8 g/dL Normal 12.0-16.0 [facility] Comment on above: Performed By: #### C BC ####[facility] [address] [place], [place] [address]Dr. Jacob Mcdaniel IG # 0.01 10e3/ul Normal 0.00-0.03 [facility] Comment on above: Performed By: #### C BC ####[facility] [address] [place], [place] [address]Dr. Jacob Mcdaniel IG % 0.1 % Normal 0.0-0.5 [facility] Comment on above: Performed By: #### C BC ####[facility] [address] [place], [place] [address]Dr. Mitastar Mcdaniel LYMPH # 2.8 103/ul Normal 1.2-3.8 [facility] Comment on above: Performed By: #### C BC ####[facility] [address] [id number]. Jacob Mcdaniel Lymphocytes/100 WBC (Bld) 40.1 % Normal 20.5-60.0 [facility] Comment on above: Performed By: #### C BC ####[facility] [address] [id number]. Jacob Mcdaniel MANUAL DIFF REQ NO [facility] Comment on above: Performed By: #### C BC ####[facility] [address] [id number]. Jacob Mcdaniel MCH (RBC) [Entitic mass] 30.1 pg Normal 26.7-34.0 [facility] Comment on above: Performed By: #### C BC ####[facility] [address] [place], [place] [address]Dr. Jacob Mcdaniel MCHC (RBC) [Mass/Vol] 33.2 g/dL Normal 29.9-35.2 [facility] Comment on above: Performed By: #### C BC ####[facility] [address] [id number]. Jacob Mcdaniel MCV (RBC) [Entitic vol] 90.6 fL Normal 81.0-99.0 [facility] Comment on above: Performed By: #### C BC ####[facility] [address] [place], [place] [address]Dr. Jacob Mcdaniel MONO # 0.5 103/ul Normal 0.3-0.8 [facility] Comment on above: Performed By: #### C BC ####[facility] [address] [id number]. Jacob Mcdaniel Monocytes/100 WBC (Bld) 6.9 % Normal 1.7-12.0 [facility] Comment on above: Performed By: #### C BC ####[facility] [address] [place], [place] [address]Dr. Jacob Mcdaniel NEUT # 3.5 103/ul Normal 1.4-6.5 [facility] Comment on above: Performed By: #### C BC ####[facility] [address] [place], [place] [address]Gy. Jacob Mcdaniel Neutrophils/100 WBC (Bld) 50.8 % Normal 43.0-75.0 [facility] Comment on above: Performed By: #### C BC ####[facility] [address] [place], [place] [address]Zq. Jacob Mcdaniel Platelet mean volume (Bld) [Entitic vol] 9.1 fL Critically low 9.5-13.5 [facility] Comment on above: Performed By: #### C BC ####[facility] [address] [id number]. Jacob Mcdaniel PLT 279 103/ul Normal 150-450 [facility] Comment on above: Performed By: #### C BC ####[facility] [address] [id number]. Jacob Mcdaniel RBC 4.59 106/ul Normal 4.20-5.40 [facility] Comment on above: Performed By: #### C BC ####[facility] [address] [place], [place] [address]An. Jacob Mcdaniel WBC 6.9 103/ul Normal 4.0-11.0 [facility] Comment on above: Performed By: #### C BC ####[facility] [id number]. Jacob Mcdaniel CT ABD/PELVIS WO CONon 09-25 [...] PATTI LOPEZ Date: 2021-09-25 18:01 Normal [facility] CULTURE URINEon 09-25-2021 CULTURE URINE Culture Observations : LIGHT GROWTH OF MIXED GENITAL BRANDT. NO POTENTIAL PATHOGENS SEEN. Normal [facility] Comment on above: Performed By: #### U RCX ####[facility] [address] [place], [place] [address]UfDoron Mcdaniel Cov[facility]-19 PCR ([facility])on SARS-CoV-2 (COVID-19) RNA MATT+probe Ql (Unsp spec) Not detected Normal NOT DETECTED [facility] Comment on above: Result Comment: When [...] for this test is supported by the [employer] Member of Health and Human Service's declaration that [...] be used). Performed By: #### C VDTB ####[facility] [address] [address]Dr. Jacob Mcdaniel ER URINE PROFILEon 2 Bilirubin Ql (U) Negative Normal NEGATIVE [facility] Comment on above: Performed By: #### PEG ROJO UMICRO #### [facility] [address] [place] [address] Dr. Jacob Mcdaniel Clarity (U) CLEAR Normal CLEAR [facility] Comment on above: Performed By: #### PEG ROJO UMICRO #### [facility] [address] [place] [address] Dr. Jacob Mcdaniel Color (U) LT. YELLOW Normal YELLOW [facility] Comment on above: Performed By: #### PEG ROJO UMICRO #### [facility] [address] [place] [address] Dr. Jacob Mcdaniel ERURAH A micrscopic examina tion will be performed if indicated. Normal [facility] Comment on above: Performed By: #### PEG ROJO UMICRO #### [facility] [address] [place] [address] Dr. Jacob Mcdaniel Glucose Ql (U) Negative Normal NEGATIVE [facility] Comment on above: Performed By: #### PEG ROJO UMICRO #### [facility] [address] [place] [address] Dr. Jacob Mcdaniel Hemoglobin Ql (U) Negative Normal NEGATIVE The [facility] Comment on above: Performed By: #### BIB ROJOU UMICRO #### [facility] [address] [place] [address] Dr. Jacob Mcdaniel Ketones Ql (U) Negative Normal NEGATIVE [facility] Comment on above: Performed By: #### E RUR PREGU, UMICRO #### [facility] [address] [place] [address] Dr. Jacob Mcdaniel LEUKOCYTES MODERATE Abnormal NEGATIVE [facility] Comment on above: Performed By: #### E RUR PREGU, UMICRO #### [facility] [address] [place] [address] Dr. Jacob Mcdaniel Nitrite Ql (U) Negative Normal NEGATIVE [facility] Comment on above: Performed By: #### Brett RUTahir PREGU UMICRO #### [facility] [address] [place] [address] Dr. Jacob Mcdaniel pH (U) 7.0 [pH] Normal 5-9 [facility] Comment on above: Performed By: #### Brett SHAH PREGU UMICRO #### [facility] [address] [place] [address] Dr. Jacob Mcdaniel SPEC GRAVITY 1.010 Normal 1.005-<=1.0 25 [facility] Comment on above: Performed By: #### Brett SHAH PREGU, UMICRO #### [facility] [address] [place] [address] Dr. Jacob Mcdaniel UA PROTEIN Negative Normal NEGATIVE/ TRACE [facility] Comment on above: Performed By: #### Brett SHAH PREGU UMICRO #### [facility] [address] [address] [address] Jacob Mcdaniel UR MICRO IND INDICATED Normal [facility] Comment on above: Performed By: #### Brett RUR PREGU, UMICRO #### [facility] [address] [place] [address] Dr. Jacob Mcdaniel Urobilinogen Qn (U) 0.2 {Tessy'U}/dL Normal 0.2 - 1.0 [facility] Comment on above: Performed By: #### Brett RUR PREGU, UMICRO #### [facility] [address] [place] [address] Dr. Jacob Mcdaniel LIPASEon 09-25-2021 Lipase [Catalytic activity/Vol] 100.0 U/L Normal 73.0-393.0 [facility] Comment on above: Performed By: #### C MP, ZEYNEP, LIPA ####[facility] [address] [address]Dr. Jacob Mcdaniel URon 09-25-2021 , QUAL Negative Normal NEGATIVE [facility] Comment on above: Performed By: #### E RUR, PREGU, UMICRO #### [facility] [address] [address] [address] Jacob Mcdaniel PROF 14(COMP METB)on 022 Albumin [Mass/Vol] 3.8 g/dL Normal 3.4-5.0 [facility] Comment on above: Performed By: #### C MP, ZEYNEP, LIPA ####[facility] [address] [address]Dr. Jacob Mcdaniel Albumin/Globulin [Mass ratio] 1.1 {ratio} Normal [facility] Comment on above: Performed By: #### C MP, ZEYNEP, LIPA ####[facility] [address] [address]Dr. Jacob Mcdaniel ALP [Catalytic activity/Vol] 76 U/L Normal 46-116 [facility] Comment on above: Performed By: #### C MP, ZEYNEP, LIPA ####[facility] [address] [address]Dr. Jacob Mcdaniel ALT [Catalytic activity/Vol] 43 U/L Normal 14-59 [facility] Comment on above: Performed By: #### C MP, ZEYNEP, LIPA ####[facility] [address] [address]Dr. Jacob Mcdaniel Anion gap [Moles/Vol] 11.9 mmol/L Normal [facility] Comment on above: Performed By: #### C MP, ZEYNEP, LIPA ####[facility] [address] [address]Dr. Jacob Mcdaniel AST [Catalytic activity/Vol] 24 U/L Normal 15-37 [facility] Comment on above: Performed By: #### C MP, ZEYNEP, LIPA ####[facility] [address] [address]Dr. Jacob Mcdaniel Bilirubin [Mass/Vol] 0.3 mg/dL Normal 0.2-1.0 [facility] Comment on above: Performed By: #### C MP ZEYNEP, LIPA ####[facility] [address] [place], [place] [address]Dr. Jacob Mcdaniel Calcium [Mass/Vol] 8.6 mg/dL Normal 8.5-10.1 [facility] Comment on above: Performed By: #### C MP ZEYNEP, LIPA ####[facility] [address] [place], [place] [address]Dr. Jacob Mcdaniel Chloride [Moles/Vol] 104 mmol/L Normal 98-107 [facility] Comment on above: Performed By: #### C MP ZEYNEP, LIPA ####[facility] [address] [place], [place] [address]Dr. Jacob Mcdaniel CO2 [Moles/Vol] 27.7 mmol/L Normal 21.0-32.0 [facility] Comment on above: Performed By: #### C MP ZEYNEP, LIPA ####[facility] [address] [place], [place] [address]Dr. Jacob Mcdaniel Creatinine [Mass/Vol] 0.89 mg/dL Normal 0.55-1.02 [facility] Comment on above: Performed By: #### C MP, ZEYNEP, LIPA ####[facility] [address] [place], [place] [address]Dr. Yilan Mcdaniel EGFR-AF [place] >60 Normal >=60 [facility] Comment on above: Performed By: #### C MP, ZEYNEP, LIPA ####[facility] [address] [place], [place] [address]Dr. Yilan Mcdaniel EGFR-NON AF [place] >60 Normal >=60 [facility] Comment on above: Performed By: #### C MP, ZEYNEP, LIPA ####[facility] [address] [address]Dr. Jacob Mcdaniel Globulin (S) [Mass/Vol] 3.5 g/dL Normal [facility] Comment on above: Performed By: #### C MP, ZEYNEP, LIPA ####[facility] [address] [address]Dr. Jacob Mcdaniel Glucose [Mass/Vol] 91 mg/dL Normal 74-106 [facility] Comment on above: Performed By: #### C MP, ZEYNEP, LIPA ####[facility] [address] [address]Dr. Jacob Mcdaniel Potassium [Moles/Vol] 3.6 mmol/L Normal 3.5-5.1 [facility] Comment on above: Performed By: #### C MP, ZEYNEP, LIPA ####[facility] [address] [address]Dr. Jacob Mcdaniel Protein [Mass/Vol] 7.3 g/dL Normal 6.4-8.2 [facility] Comment on above: Performed By: #### C MP, ZEYNEP, LIPA ####[facility] [address] [address]Dr. Jacob Mcdaniel Sodium [Moles/Vol] 140 mmol/L Normal 136-145 [facility] Comment on above: Performed By: #### C MP, ZEYNEP, LIPA ####[facility] [address] [address]Dr. Jacob Mcdaniel Urea nitrogen [Mass/Vol] 14.0 mg/dL Normal 7.0-18.0 [facility] Comment on above: Performed By: #### C MP, ZEYNEP, LIPA ####[facility] [address] [address]Dr. Jacob Mcdaniel Urea nitrogen/Creatinin e [Mass ratio] 15.7 mg/mg Normal [facility] Comment on above: Performed By: #### C MP, ZEYNEP, LIPA ####[facility] [address] [address]Dr. Jacob Mcdaniel URINE MICROSCOPIC ONLYon BACTERIA SMALL Abnormal NONE SEEN [facility] Comment on above: Performed By: #### E RUR, PREGU, UMICRO #### [facility] [address] [address] [address] Jacob Mcdaniel Bacteria identified Cx Nom (U) INDICATED Normal [facility] Comment on above: Performed By: #### E RUR, PREGU, UMICRO #### [facility] [address] [address] [address] Jacob Mcdaniel CAST NONE SEEN Normal NONE SEEN [facility] Comment on above: Performed By: #### E RUR, PREGU, UMICRO #### [facility] [address] [address] [address] Jacob Mcdaniel Crystals LM Nom (Urine sed) NONE SEEN Normal NONE SEEN [facility] Comment on above: Performed By: #### E RUR, PREGU, UMICRO #### [facility] [address] [place] [address] Dr. Jacob Mcdaniel Epithelial cells LM Ql (Urine sed) FEW Abnormal NONE SEEN /RARE [facility] Comment on above: Performed By: #### E RUR, PREGU, UMICRO #### [facility] [address] [address] [address] Jacob Mcdaniel MUCOUS NONE SEEN Normal NONE SEEN [facility] Comment on above: Performed By: #### E RUR, PREGU, UMICRO #### [facility] [address] [address] [address] Jacob Mcdaniel RBC NONE SEEN Abnormal 0-2 [facility] Comment on above: Performed By: #### E RUR, PREGU, UMICRO #### [facility] [address] [address] [address] Jacob Mcdaniel WBC 10-20 Abnormal NONE SEEN [facility] Comment on above: Performed By: #### E RUR, PREGU, UMICRO #### [facility] [address] [place] [address] Dr. Jacob Mcdaniel XR lumbar spine AP/LAT/FLX/E XTon 07-29-2021 XR lumbar spine AP/LAT/FLX/EXT [facility] [address] [address] XRay Report Signed Patient: Tiera Wakefield MR#: [id number] 21 : 1970 Acct:[id number] Age/Sex: 50 / F ADM Date: 07/29/21 Loc: XD Room: Type: [facility] Attending Dr: Matteo Person MD Ordering [...] Aguilar Jr., D.O.07/29/2021 2:43 PM Dictation Location: [place] [address] Transcribed By: [facility] 07/29/21 1443 Dictated By: Wilson Aguilar Jr, DO 07/29/21 1441 Signed By: 07/29/21 1443 [facility] Operative Reporton 9 Operative Report MR#: [id number] [facility] Pt. Name: Tiera Wakefield Room #: 0C Discharge Date: Birthdate: 1970 OPERATIVE REPORT DATE OF SURGERY: 12/01/2018 SURGEON: Lizbeth Fleming M.D. PREOPERATIVE DIAGNOSIS: Left shoulder rotator cuff tear. POSTOPERATIVE DIAGNOSIS: Left shoulder rotator cuff tear. MERCHANDISE APPRAISER: Darinel Bartholomew M.D. ANESTHESIA: General. PROCEDURE PERFORMED: Left shoulder rotator cuff repair. INDICATIONS: The patient is a 48-year-old woman, who had previously had a rotator cuff repair performed by Dr. Melvin in [place]. I reviewed the intraoperative images and it [...] reconstruction. This would be to remove her [place] rotator cuff tendon and instead reconstruct with [...] Fleming M.D. Date Trans: 12/01/2018 11:50 A/cory [id number] cc: Gerald Tavares D.O. [address] [facility] [id number] Normal [facility] POC GLUCOSE LABon 12-01-2018 Glucose [Mass/Vol] 79 mg/dL Normal 70-100 [facility] Comment on above: Performed By: #### [id number] #### [address] POC URINE PREGNANCYon 2018 Beta HCG ( test) Ql (U) Negative Normal NEGATIVE [facility] Comment on above: Result Comment: Perf ormed in PACU Performed By: #### [id number] #### [address] MRI SHOULDER WO CONTRAST LEF Ton 08-18-2018 MRI SHOULDER WO CONTRAST LEFT [facility] Department of Radiology [address] [place] [id number] Patient Name: TIERA WAKEFIELD : 1970 Sex: F Age: Race: White Pt. Location: Patient Status: Ordered Date: 08/10/2018 12:00:00 PM Completed Date: 08/18/2018 07:41 AM Requesting Provider: LIZBETH FLEMING Attending Provider: Report Copy To: Signs & Symptoms: M75.122 Complete rotatr-cuff tear/ruptr of left shoulder, not trauma I10 History: Kaylah, Hardware left shoulder -new number npc mri [id number] / jake baronen call ref # [id number] *er Comments: , , , Ordering Provider [...] 10. Electronically signed by:Peggy Winchester. Transcribed by: [email or web address], User Resident: Electronically Signed by: PEGGY WINCHESTER @ 08/18/2018 10:48 AM Normal [facility] Comment on above: Order Comment: , , = ========= , Ordering Provider - LIZBETH FLEMING MD , CNOVon 03-16-2018 CNOV Office Visit (SPSNAV) -------TIERA WAKEFIELD ([id number]) 1970 [facility]3] Time Provider Wsaxzpndek27/27/18 2:55 PM Tahir ANN SPSNAV During your [...] in onemonth's time.Odalis Ahn Provider: ZORAIDA ALMANZAR [[id number]]Allergies As of Date: 03/16/2018 Noted Allergy ReactionASPIRIN [...] FOR* More...Follow-up and Disposition History RecordedEncounter Number: [id number] Status:Closed by Tahir ANN MD on 03/16/18 [facility] PROGRESSon 03-16-2018 Protein mass conc HNO ID: [id number] thor: Tahir Phillips: (none)Author Type: PhysicianType: Progress [...] chanellack in one month's time.Tahir Ann MD [facility] HISTORY PHYSICALon 8 HISTORY PHYSICAL HNO ID: [id number] thor: Sydney Reyna (Merged With [facility]) Marisol Hidalgo: (none)Author Type: Physician AssistantType: HANDPFiled: 02/18/2018 9:35 AMNote Text:LOCAL PROCEDURE HISTORY AND PHYSICAL EXAMSERVICE DATE: 02/18/2018SERVICE TIME: 9:34 AMProvisional Diagnosis/Treatment Plan: lumbar disc herniation/Right L5-S6UHNCEBtikpeimvmIQC: This is a 47 year old female [...] February 18, 2018 : 9:34 AM PAGER: [phone] [facility] NURSING PROGon 02-18-2018 Protein mass conc HNO ID: [id number] thor: Christine (Rn) [place], RNService: (none)Author Type: Registered NurseType: Nursing Progress NoteFiled: 02/18/2018 9:54 AMNote Text: Nursing Progress NotePatient Name: Tiera SunshineRN: [id number] Location: AV Endo/AV Endo Daily Note: 0946 - Pt arrived to post op awake, oriented x 3. Pt statespain has gone from 10/10 to 6/10 to right leg. Pt still having numbnessto right leg. Pedal push/pulls equal and strong. vSSThis note was completed by: Christine Downing, JOLENE [facility] OPERATIVE NOon 02-18-2018 OPERATIVE NO HNO ID: [id number] thor: Zoraida Fine: (none)Author Type: PhysicianType: Operative ReportFiled: 02/18/2018 9:44 AMNote Text:Pt presents for f/u. Continues to have Rt leg pain. Appearsuncomfortable, seen by Dr. Ann for surgical eval. Wants to proceed withan injection today to address the presenting symptoms. Consent obtained.Rt side was marked in the pre-op area. Pt is aware of risks, benefits,alternatives, expected outcome, equipment and personnel.[facility] approved time out was performed identifying the site, side and levelof procedure prior to start of procedure.[facility] SUR[facility] - ELECTIVE PROCEDURELumbar Transforaminal Epidural [...] I performed theentire procedure.Zoraida Almanzar DO, MBA [facility] PT EDon 02-18-2018 PT ED HNO ID: [id number] thor: Christine (Rn) [place], RNService: (none)Author Type: Registered NurseType: Patient EducationFiled: 02/18/2018 9:58 AMNote Text:POST OP LEARNING RESPONSEINSTRUCTION PROVIDED TO: PatientMETHOD OF INSTRUCTION: Written instruction - handoutsVerbal instructionPATIENT / FAMILY RESPONSE: Verbalizes understanding of: POST-PROCEDUREINSTRUCTIONS- Correct actions to take to reduce post procedurecomplicationsFOLLO W-UP PLAN: Complete - No need for follow-upSUPPLEMENTAL MATERIAL: NoneREFERRAL (RECOMMENDATION): NoneElectronically Signed By: Christine Downing RN In Department: PROCEDURES [facility] PT ED HNO ID: [id number] thor: Keely (Rn) Angelica, RNService: NursingAuthor Type: Registered NurseType: Patient EducationFiled: 02/18/2018 9:28 AMNote Text:PRE OP LEARNING ASSESSMENTPROCEDURE/SURGERY : PAIN MANAGEMENT: lumbar epiduralREADINESS TO LEARNCOGNITIVE ABILITY: Alert and orientedMOTIVATION TO LEARN: InterestedFAMILY SUPPORT: High - Very involved in pt carePATIENT LEARNS BEST BY: Individual InstructionVerbal InstructionFACTORS AFFECTING LEARNING: NonePHYSICAL LIMITATIONS AFFECTING LEARNING: NoneElectronically Signed By: Keely Dominguez RN [facility] CNOVon 02-16-2018 CNOV Office Visit (SPSNAV) -------YAREDTIERA TINAJERO ([id number]) 1970 FDate Time Provider Xmdjplsdst08/30/18 1:55 PM Tahir ANN SPSNAV During your [...] is greater than in the backDERMATOMAL DISTRIBUTION:Right: [id number] STATUS: Minimal Ambulation/Wheelchair BoundANTIPLATELET OR ANTICOAGULATION STATUS: [...] suddenly. Her MRI shows a large extruded L5-B3gxekwynx.I think there is a high chance that this will resolve spontaneously withnonoperative care. To manage her symptoms in the short term she may benefitfrom an epidural injection. I will see her back in one month's time.Tahir Ann MDReferring Provider: ZORAIDA ALMANZAR [[id number]]Allergies As of Date: 02/16/2018 Noted Allergy ReactionASPIRIN [...] Status:Closed by Tahir ANN MD on 02/16/18 [facility] [place] 02-16-2018 [facility] Telephone (NIQ) ----TIERA WAKEFIELD ([id number]) 1970 FDa Time Provider Asaxgkwhlv79/30/18 ZORAIDA ALMANZAR During your visit today, we [...] Epidural Steroid Injection [1061]Order(s):SURGICAL REQUEST - ELECTIVE [[id number]] Order #: [id number]: 1Prescriptions as of 02/16/2018 Sig: FLUTICASONE 100 [...] More... Status:Closed by KANDY MARTIN on 02/16/18 Normal [facility] HOSPon 02-16-2018 HOSP Patient:Aissatou Wakefield AMRN: [...] for the following basenames: K,HCTProgress Notes ([facility] REJ):Elaine Woodson, RN, RN 02/16/2018 4:33 PM SignedPatient calledSherron saw Dr. Ann todaySherron is scheduled for an epidural injection sking for pain medication for relief prior to injectionReturn call to [phone] Griffin LPN 02/17/2018 9:21 AM SignedThe prescription you requested has been called in to Dr Tracy dejesus at [facility] to pt and advised.Pt verbalized understanding.Progress Notes ([facility]):Lisa Elizabeth 02/16/2018 1:54 PM SignedPt at check out scheduled for injection on 02/18/[address] Almanzar at 9AMRight L5-S1 TFESI-DM/-ThinMallyll sign Ermelinda Martin 02/16/2018 2:49 PM SignedESR Rossi Martin 02/16/2018 2:51 PM SignedEsr done Normal [facility] PROGRESSon 02-16-2018 Protein mass conc HNO ID: [id number] thor: Tahir Phillips: (none)Author Type: PhysicianType: Progress [...] her back in one month'stime.Tahir Ann MD [facility] Protein mass conc HNO ID: [id number] thor: Tahir Phillips: (none)Author Type: PhysicianType: Progress [...] is greater than in the backDERMATOMAL DISTRIBUTION:Right: [id number] STATUS: Minimal Ambulation/Wheelchair BoundANTIPLATELET OR ANTICOAGULATION STATUS: [...] 16, 2018 : 1:15 PM PAGER: Tyrell [facility] JAVIERDanilo 02-15-2018 CNOV Office Visit (SPNMAV) -------TIERA WAKEFIELD ([id number]) 1970 FDate Time Provider Zzewlzxsik86/29/18 1:20 PM ZORAIDA ALMANZAR SPNMAV During your visit today, we recorded the following information about you: Blood pressure Weight Height 122/84 68 kg 1.6 Hector Amlanzar DO 02/15/2018 2:25 PM SignedSpine Care Path [...] side. [place] past [place].Other Issues Addressed at [...] Official reports pending.Loss of disc ht at L5/n7UBSMOGGBUH:See diagnosis.PLAN:Discussed various options including non-surgical and surgical [...] be forwarded to consulting/requesting physician.Zoraida Almanzar DO, MBARefersonu Provider: SELF [[id number]]Allergies As of Date: 02/15/2018 Noted Allergy ReactionASPIRIN 04/07/2014 14 - Other: See CommentsDate Reviewed: 02/15/2018Reviewed by: Zoraida Almanzar - Fully AssessedReason for Visit: New Patient [172] Cmt: left sided low back painPrimary Visit Diagnosis:Lumbar disc herniation [M51.26] Other Visit Diagnoses:Radiculopathy, lumbar region [M54.16] Acute right-sided low back pain with right-sided sciatica [M54.41]Order(s):MRI LUMBAR SPINE WO IVCON [[id number]] Order #: [id number] FUTURE CONSULT TO SPINE SURGERY [[id number]] Order #: [id number]: 1Prescriptions as of 02/15/2018 Sig: FLUTICASONE 100 MCG-SALMETERO* Advair Diskus 100 mcg-50 mcg/* ALBUTEROL SULFATE 2.5 MG/3 ML* albuterol sulfate 2.5 mg/3 mL* BACLOFEN 10 MG TABLET CITALOPRAM 20 MG TABLET citalopram 20 mg tablet METHYLPREDNISOLONE 4 MG TABLE* METHYLPREDNISOLONE 4 MG TABLE* methylprednisolone 4 mg table*Problem List As Of Date: 02/15/2018(None) Status:Closed by ZORAIDA ALMANZAR DO on 02/15/18 Normal [facility] MRI LUMBAR SPINE WO IVCONon 02-15-2018 [...] crest and assume there are 5 lumbar-type vertebrae.Taxicab Dispatcher: PSCB Transcribe Date/Time: Feb 15 2018 5:30PDictated by : GERALD MARK MDThis examination was interpreted and the report reviewed and electronically signed by: GERALD MARK MD on Feb 15 2018 5:35PM [id number] [facility] PROGRESSon 02-15-2018 Protein mass conc HNO ID: [id number] thor: Zoraida Fine: (none)Author Type: PhysicianType: Progress [...] on side. [place]been seen in ED in [place] numerous times over past week.Other Issues Addressed [...] - symmetric bilaterally in patella and achilles.Negative Alng's b/lROM - Lumbar not testedKNEE ROM - [...] Official reports pending.Loss of disc ht at L5/v7PCNOYYIHEE:See diagnosis.PLAN:Discussed various options including non-surgical and surgical [...] todays visit will be forwarded to consulting/requestingphysic corinna.Zoarida Almanzar DO, MBA Normal [facility] SR-XR Spine Lumbosacral 2 or 3 Views IMPORTon 02-12-2018 SR-XR Spine Lumbosacral 2 or 3 Views IMPORT Images were obtained outside of [facility] [id number] Normal [facility] Vital Signs Date Time Vital Sign Value Performing Clinician Facility 08-16-2024 14:40-0400 Body height 160 cm Ubaldo Kaiser DO Work Phone: [facility] 08-16-2024 14:40-0400 Body mass index (BMI) [Ratio] 28.34 kg/m2 Ubaldo Kaiser DO Work Phone: [facility] 08-16-2024 14:40-0400 Body weight 72.58 kg Ubaldo Kaiser DO Work Phone: [facility] 07-13-2024 09:56-0400 Body height 160 cm [facility]ijerina [facility] 07-13-2024 09:56-0400 Body mass index (BMI) [Ratio] 29.16 kg/m2 Jeanette Tijerina PA [facility] 07-13-2024 09:56-0400 Body temperature 98.29 [degF] Jeanette Tijerina PA Work Phone: [facility] [employer] 07-13-2024 09:56-0400 Body weight 74.66 kg [facility]ijerina [facility] 07-13-2024 09:56-0400 Diastolic blood pressure 84 mm[Hg] Jeanette Tijerina PA [facility] 07-13-2024 09:56-0400 Heart rate 64 /min Jeanette Tijerina PA [facility] 07-13-2024 09:56-0400 Respiratory rate 16 /min Jean[facility]ijerina [facility] 07-13-2024 09:56-0400 SaO2% (BldA) [Mass fraction] 99 % Jeanette Tijerina PA [facility] 07-13-2024 09:56-0400 Systolic blood pressure 142 mm[Hg] Jeanette Tijerina PA [facility] 06-29-2024 15:03-0400 Body mass index (BMI) [Ratio] 29.05 kg/m2 Jeanette Tijerina PA Work Phone: [facility] [employer] 06-29-2024 15:03-0400 Body temperature 97.59 [degF] Jeanette Martinezne PA Work Phone: [facility] [employer] 06-29-2024 15:03-0400 Body weight 74.39 kg Jeanette Martinezne PA Work Phone: [facility] [employer] 06-29-2024 15:03-0400 Diastolic blood pressure 71 mm[Hg] Jeanette Martinezne PA Work Phone: [facility] [employer] 06-29-2024 15:03-0400 Heart rate 61 /min Jeanette Martinezne PA Work Phone: [facility] [employer] 06-29-2024 15:03-0400 SaO2% (BldA) [Mass fraction] 99 % Jeanette Tijerina PA Work Phone: [facility] [employer] 06-29-2024 15:03-0400 Systolic blood pressure 130 mm[Hg] Jeanette Tijerina PA Work Phone: [facility] [employer] [facility] 06-21-2024 14:09-0500 Body height 160 cm Ubaldo Kaiser DO Work Phone: [facility] 06-21-2024 14:09-0500 Body mass index (BMI) [Ratio] 28.34 kg/m2 Ubaldo Kaiser DO Work Phone: [facility] [employer] 06-21-2024 14:09-0500 Body weight 72.58 kg Ubaldo Kaiser DO Work Phone: [facility] 06-10-2024 10:37-0500 Body height 160 cm [facility] [employer] [facility] 06-10-2024 10:37-0500 Body mass index (BMI) [Ratio] 28.74 kg/m2 [facility] [employer] [facility] 06-10-2024 10:37-0500 Body temperature 98.4 [degF] [facility] 06-10-2024 10:37-0500 Body weight 73.6 kg [facility] 06-10-2024 10:37-0500 Diastolic blood pressure 87 mm[Hg] [facility] 06-10-2024 10:37-0500 Heart rate 67 /min [facility] 06-10-2024 10:37-0500 Respiratory rate 14 /min [facility] 06-10-2024 10:37-0500 SaO2% (BldA) [Mass fraction] 96 % [facility] 06-10-2024 10:37-0500 Systolic blood pressure 122 mm[Hg] [facility] 06-08-2024 10:16-0500 Body mass index (BMI) [Ratio] 28.91 kg/m2 Daniel Gold MD Work Phone: [facility] 06-08-2024 10:16-0500 Body weight 74.03 kg Daniel Gold MD Work Phone: [facility] 05-24-2024 14:12-0500 Body mass index (BMI) [Ratio] 29.05 kg/m2 Zeynep BRAGG Work Phone: [facility] 05-24-2024 14:12-0500 Body weight 74.39 kg Zeynep BRAGG Work Phone: [facility] 05-24-2024 14:12-0500 Diastolic blood pressure 76 mm[Hg] Zeynep BRAGG Work Phone: [facility] 05-24-2024 14:12-0500 Systolic blood pressure 120 mm[Hg] Zeynep BRAGG Work Phone: [facility] 12-29-2023 20:04-0400 Body temperature 97.7 [degF] Manav Phillip [facility] 12-29-2023 20:04-0400 Diastolic blood pressure 92 mm[Hg] Manav Phillip [facility] 12-29-2023 20:04-0400 Heart rate 62 /min Manav Phillip [facility] 12-29-2023 20:04-0400 Respiratory rate 18 /min Manav Phillip [facility] 12-29-2023 20:04-0400 SaO2% (BldA) [Mass fraction] 97 % Manav Phillip [facility] 12-29-2023 20:04-0400 Systolic blood pressure 150 mm[Hg] [facility] Phillip [facility] 12-23-2023 09:37-0400 Body mass index (BMI) [Ratio] 28.87 kg/m2 Ben De Leon [employer] Work Phone: [facility] 12-23-2023 09:37-0400 Body temperature 98.01 [degF] Ben De Leon [employer] Work Phone: [facility] 12-23-2023 09:37-0400 Body weight 73.94 kg Ben De Leon [employer] Work Phone: [facility] 12-23-2023 09:37-0400 Diastolic blood pressure 70 mm[Hg] Ben De Leon DO Work Phone: [facility] 12-23-2023 09:37-0400 Heart rate 68 /min Ben De Leon DO Work Phone: [facility] 12-23-2023 09:37-0400 SaO2% (BldA) [Mass fraction] 98 % Ben De Leon [employer] Work Phone: [facility] 12-23-2023 09:37-0400 Systolic blood pressure 110 mm[Hg] Ben De Leon DO Work Phone: [facility] 11-16-2023 15:55-0400 Body height 161.29 cm [facility] 11-16-2023 15:55-0400 Body mass index (BMI) [Ratio] 28.4 kg/m2 [facility] 11-16-2023 15:55-0400 Body temperature 98.4 [degF] [facility] 11-16-2023 15:55-0400 Body weight 73.93 kg [facility] 11-16-2023 15:55-0400 Heart rate 63 /min [facility] 11-16-2023 15:55-0400 Respiratory rate 18 /min [facility] 11-16-2023 15:55-0400 SaO2% (BldA) [Mass fraction] 98 % [facility] 08-04-2023 14:46-0400 Blood Pressure Location Annasanto CasonSonya [facility] 08-04-2023 14:46-0400 Body temperature 97.52 [degF] Anna Sonya [facility] 08-04-2023 14:46-0400 Diastolic blood pressure 70 mm[Hg] Anna Sonya [facility] 08-04-2023 14:46-0400 Heart rate 84 /min Anna Sonya [facility] 08-04-2023 14:46-0400 Systolic blood pressure 113 mm[Hg] Anna Sonya [facility] 05-19-2023 08:50-0500 Blood Pressure Location Anna Sonya [facility] 05-19-2023 08:50-0500 Body temperature 96.8 [degF] Anna Sonya [facility] 05-19-2023 08:50-0500 Diastolic blood pressure 76 mm[Hg] Anna Sonya [facility] 05-19-2023 08:50-0500 Heart rate 62 /min Anna Sonya [facility] 05-19-2023 08:50-0500 Systolic blood pressure 120 mm[Hg] Anna Hassan [facility] 02-18-2023 10:30-0400 Body height 161.29 cm Christina Montana Other [place] Other 02-18-2023 10:30-0400 Body mass index (BMI) [Ratio] 27.9 kg/m2 Christina Montana Other [place] Other 02-18-2023 10:30-0400 Body temperature 98.2 [degF] Christina Montana Other [place] Other 02-18-2023 10:30-0400 Body weight 72.58 kg Christina Montana Other [place] Other 02-18-2023 10:30-0400 Diastolic blood pressure 78 mm[Hg] Christina Montana Other [place] Other 02-18-2023 10:30-0400 Respiratory rate 18 /min Christina Rameymond Other [place] Other 02-18-2023 10:30-0400 SaO2% (BldA) [Mass fraction] 98 % Christina Nan Other [place] Other 02-18-2023 10:30-0400 Systolic blood pressure 134 mm[Hg] Christina Nan Other [place] Other 12-20-2022 11:40-0400 Body height 161.29 cm Christina Nan Other [place] Other 12-20-2022 11:40-0400 Body mass index (BMI) [Ratio] 27.55 kg/m2 Christina Montana Other [place] Other 12-20-2022 11:40-0400 Body temperature 97 [degF] Christina Rameymond Other [place] Other 12-20-2022 11:40-0400 Body weight 71.67 kg Christina Montana Other [place] Other 12-20-2022 11:40-0400 Diastolic blood pressure 79 mm[Hg] Christina Montana Other [place] Other 12-20-2022 11:40-0400 SaO2% (BldA) [Mass fraction] 98 % Christina Montana Other [place] Other 12-20-2022 11:40-0400 Systolic blood pressure 142 mm[Hg] Christina Nan Other [place] Other 11-17-2022 15:48-0400 Blood Pressure Location Anna Hassan [facility] 11-17-2022 15:48-0400 Body temperature 97.16 [degF] Anna Hassan [facility] 11-17-2022 15:48-0400 Diastolic blood pressure 75 mm[Hg] Anna Hassan [facility] 11-17-2022 15:48-0400 Heart rate 63 /min Anna Hassan [facility] 11-17-2022 15:48-0400 Systolic blood pressure 124 mm[Hg] Anna Hassan [facility] 07-26-2021 11:45-0400 Body height 161.29 cm Matteo Reneeky Other [place] Other 07-26-2021 11:45-0400 Body mass index (BMI) [Ratio] 28.94 kg/m2 Matteo Raza Other [place] Other 07-26-2021 11:45-0400 Body weight 75.3 kg Matteo Reneeky Other [place] Other 07-26-2021 11:45-0400 Diastolic blood pressure 80 mm[Hg] Matteo Raza Other [place] Other 07-26-2021 11:45-0400 SaO2% (BldA) [Mass fraction] 99 % Matteo Person Other [place] Other 07-26-2021 11:45-0400 Systolic blood pressure 120 mm[Hg] Matteo Person Other [place] Other Encounters Encounter Date Encounter Type Care Provider Facility Start: 08-16-2024 End: 08-16-2024 Office outpatient visit 25 minutes Ubaldo Kaiser DO Work Phone: [facility] Comment on above: Family history of an eurysm (Primary Dx); Pulsatile tinnitus; Sensorineural hearing loss (SNHL) of right ear, unspecified hearing status on contralateral side Start: 08-16-2024 End: 08-16-2024 ambulatory UBALDO KAISER Not Available Start: 08-16-2024 End: 08-16-2024 Bamboo flowsheet Ubaldo Kaiser DO Work Phone: [facility] Start: 08-16-2024 End: 08-16-2024 Bamboo flowsheet Ubaldo Kaiser DO Work Phone: [facility] Start: 07-13-2024 End: 07-13-2024 Office outpatient visit 15 minutes Jeanette BRAGG Work Phone: Maggy Hernandez [facility] Comment on above: Encounter for postop erative care (Primary Dx); Dyspareunia, female Start: 07-13-2024 End: 07-13-2024 ambulatory [facility] Start: 07-08-2024 End: 07-08-2024 ambulatory [facility] Facility:[facility] Start: 06-29-2024 End: 06-29-2024 Postop follow up visit related to original px Jeanette BRAGG Work Phone: Maggy Hernandez [facility] Comment on above: Encounter for postop erative care (Primary Dx); Post-op pain Start: 06-29-2024 End: 06-29-2024 ambulatory [facility] Start: 06-29-2024 End: 06-29-2024 Telephone encounter Regina Monsivais RN [facility] Gynecology Oncology, A Department of [facility] Start: 06-25-2024 End: 06-25-2024 Telephone encounter Neeta Arnold [facility] Darlin haro Comment on above: Post-op Problem Start: 06-23-2024 End: 06-23-2024 Evaluation and management of inpatient ELIS PALMA [facility] Start: 06-23-2024 End: 06-23-2024 Evaluation and management of inpatient DANIEL Landen GOLD [facility] Start: 06-21-2024 End: 06-21-2024 ambulatory UBALDO KAISER Not Available Start: 06-21-2024 End: 06-21-2024 Bamboo flowsheet Ubaldo Kaiser DO Work Phone: [facility] Start: 06-21-2024 End: 06-21-2024 Bamboo flowsheet Ubaldo Chaidez Reji DO [facility] Start: 06-21-2024 End: 06-21-2024 Office outpatient new 45 minutes Ubaldo Chaidez Reji DO Work Phone: [facility] Comment on above: Sensorineural hearin g loss (SNHL) of right ear, unspecified hearing status on contralateral side (Primary Dx); Pulsatile tinnitus; Tinnitus, unspecified laterality Start: 06-15-2024 End: 06-15-2024 Bamboo flowsheet Florence Howard AUD Work Phone: [facility] Start: 06-15-2024 End: 06-15-2024 Bamboo flowsheet Florence Howard AUD Work Phone: [facility] Start: 06-15-2024 End: 06-15-2024 Patient encounter procedure Florence S Lee AUD Work Phone: [facility] Comment on above: Sensorineural hearin g loss, bilateral (Primary Dx); Right-sided tinnitus Start: 06-15-2024 End: 06-15-2024 ambulatory FLORENCE HOWARD Not Available Start: 06-10-2024 ambulatory GERALD [facility] Start: 06-10-2024 End: 06-10-2024 Patient encounter procedure [facility] Comment on above: Bartholin cyst; Preop testing Start: 06-10-2024 End: 06-10-2024 [facility] Start: 06-10-2024 End: 06-10-2024 ambulatory DANIEL Schuster RAFAEL [facility] Start: 06-10-2024 Encounter for other preprocedural examination [facility] Start: 06-09-2024 End: 06-09-2024 Orders Only Daniel Gold MD Work Phone: [facility] Gynecology Oncology, A Department of [facility] Comment on above: Bartholin cyst (Prim jenny Dx); Preop testing Start: 06-09-2024 End: 06-09-2024 Patient encounter status Daniel Gold MD Work Phone: [facility] Start: 06-08-2024 End: 06-08-2024 ambulatory DANIEL GOLD [facility] Start: 06-08-2024 End: 06-08-2024 Office outpatient new 60 minutes Daniel Gold MD Work Phone: [facility] Gynecology Oncology, A Department of [facility] Comment on above: Bartholin cyst (Prim jenny Dx) Start: 05-24-2024 End: 05-24-2024 Bamboo flowsheet Zeynep BRAGG Work Phone: [facility] Start: 05-24-2024 End: 05-28-2024 Bamboo flowsheet Zeynep BRAGG Work Phone: [facility] Start: 05-24-2024 End: 05-28-2024 Clinisync Result Encounter Zeynep BRAGG Work Phone: [facility] Department Unsolicited Start: 05-24-2024 End: 05-24-2024 Patient encounter procedure Zeynep BRAGG Work Phone: [facility] Start: 05-24-2024 End: 05-24-2024 Periodic preventive med est patient 40-64yrs Zeynep BRAGG Work Phone: [facility] Comment on above: Well woman exam with routine gynecological exam; Bartholin's gland cyst; Encounter for screening mammogram for malignant neoplasm of breast; Yeast infection Start: 05-24-2024 End: 05-24-2024 ambulatory ZEYNEP BARBOUR Not Available Start: 12-29-2023 End: 12-29-2023 Emergency department patient visit Manav Fisher [facility] Start: 12-23-2023 End: 12-23-2023 ambulatory BEN DE LEON Not Available Start: 12-23-2023 End: 12-23-2023 Office outpatient new 45 minutes Ben De Leon DO Work Phone: [facility] Comment on above: Puncture wound of ri ght foot, initial encounter (Primary Dx) Start: 11-16-2023 End: 11-16-2023 ambulatory [facility] Work Phone: Start: 11-16-2023 End: 11-16-2023 [facility] encounter [facility] Work Phone: Start: 09-07-2023 End: 09-07-2023 ambulatory [facility] Start: 09-07-2023 End: 09-07-2023 Patient encounter procedure Elina Boyer [facility] Start: 08-04-2023 End: 08-04-2023 ambulatory Anna Hassan [facility] Start: 08-04-2023 End: 08-04-2023 Patient encounter procedure Anna Hassan [facility] Start: 07-14-2023 End: 07-14-2023 Lab Drop off Castro Talal Sarmini [facility] Start: 07-14-2023 End: 07-14-2023 ambulatory Castro Talal Sarmini [facility] Start: 07-14-2023 End: 07-14-2023 ambulatory Castro Talal Sarmini Facility::[id number] Start: 05-19-2023 End: 05-19-2023 Patient encounter procedure Anna Hassan [facility] Start: 05-12-2023 End: 05-12-2023 Lab Drop off Matthew Carrasco [facility] Start: 02-18-2023 End: 02-18-2023 ambulatory Christina Montana Other [place] Other Start: 02-18-2023 Office outpatient vi sit 15 minutes Christina Nan [facility] Start: 12-20-2022 End: 12-20-2022 ambulatory Christina Nan Other [place] Other Start: 12-20-2022 Office outpatient vi sit 15 minutes Christina Nan [facility] Start: 12-01-2022 End: 12-01-2022 Patient encounter procedure Anna A Sonya [facility] Start: 11-17-2022 End: 11-17-2022 Patient encounter procedure Anna A Sonya [facility] Start: 07-18-2022 End: 07-18-2022 Patient encounter procedure Annasanto Casonmetz [facility] Start: 06-05-2022 Encounter for genera l adult medical examination without abnormal findings DR GERALD TAVARES [facility] Start: 06-04-2022 End: 06-05-[address] HERB MEDEL Facility:[facility] Start: 06-04-2022 End: 06-05-2022 Encounter for general adult medical examination without abnormal findings DR GERALD TAVARES Facility:[facility] Start: 05-30-2022 End: 05-30-[address] LIZBETH TANG Facility:[facility] Start: 01-22-2022 End: 01-22-[address] GERALD TAVARES Facility:[facility] Start: 09-25-2021 End: 09-26-[address] DERIK LLOYD Facility: Start: 08-22-2021 (Procedure) Short Matteo Person [facility] Start: 08-22-2021 End: 08-22-2021 ambulatory Matteo Person Other [place] Other Start: 08-12-2021 End: 08-12-2021 ambulatory Matteo Person Other [place] Other Start: 08-12-2021 Telephone encounter Matteo Person [facility] Start: 07-30-2021 End: 07-30-2021 ambulatory Matteo Person Other [place] Other Start: 07-30-2021 Telephone encounter Matteo Person [facility] Start: 07-26-2021 End: 07-26-2021 ambulatory Matteo Person Other [place] Other Start: 07-26-2021 Office outpatient vi sit 25 minutes Matteosavita Person [facility] [place] Start: 12-01-2018 End: 12-02-2018 Patient encounter procedure LIZBETH FLEMING Facility[facility] Start: 03-16-2018 End: 03-17-2018 Patient encounter procedure Tahir ANN [facility] Start: 02-18-2018 End: 02-18-[address] [facility] Start: 02-16-2018 End: 02-17-2018 Patient encounter procedure Tahir PATEL [facility] Start: 02-15-2018 Patient encounter procedure [facility] Start: 02-15-2018 End: 02-15-2018 Patient encounter procedure [facility] Procedures Date Procedure Procedure Detail Performing Clinician Start: 06-15-2024 AUDITORY FUNCTION TESTS Florence SOOD Work Phone: Start: 06-10-2024 Comprehensive metabolic panel Daniel burciaga MD Work Phone: Start: 05-24-2024 IGP,APTIMA HPV,AGE GDLN Zeynep Angle PA Work Phone: Start: 05-24-2024 Microscopic observation [Identifier] in Cervix by Cyto stain Daniel Gold MD Work Phone: Start: 04-27-2023 Microscopic observation [Identifier] in Cervix [...] Arthroscopy of knee Anna Nolan Cholecystectomy Anna Balderas nakia Colonoscopy Anna [...] Treatment Date Care Activity Detail Author Start: 12-22-2033 DTaP,Tdap and Td Vaccines (2 - Td or Tdap) DTaP,Tdap and Td Vaccines (2 - Td or Tdap) [facility] Start: 05-02-2031 Screening for malign ant neoplasm of colon [facility] Start: 04-27-2028 Screening for malign ant neoplasm of cervix [facility] Start: 05-24-2027 Screening for malign ant neoplasm of cervix Pap Smear [facility] Start: 04-27-2026 Screening for malign ant neoplasm of cervix Pap Smear [facility] Start: 07-13-2025 Adult BMI Screening Adult BMI Screen ing [facility] Start: 07-13-2025 Tobacco Screening Tobacco Screening [facility] Start: 06-29-2025 Adult BMI Screening Adult BMI Screen [facility] Start: 06-23-2025 Adult BMI Screening Adult BMI Screen ing [facility] Start: 06-23-2025 Tobacco Screening Tobacco Screening [facility] Start: 06-10-2025 Adult BMI Screening Adult BMI Screen ing [facility] Start: 06-10-2025 Tobacco Screening Tobacco Screening [facility] Start: 06-08-2025 Adult BMI Screening Adult BMI Screen ing [facility] Start: 12-19-2024 Influenza vaccination Influenz a Vaccine (Season Ended) [facility] Start: 08-16-2024 End: 08-16-2024 Patient encounter procedure 08/16/2024 3:30 PM EDT Office Visit [facility] [place] [address] [place] [address] Ubaldo Kaiser S, DO [address] [place] [address] Arrived [facility] [place] Comment on above: Arrived Start: 08-16-2024 End: 08-16-2025 CTA Head vessels WO and W contrast IV CT angiogram head Imaging Routine Pulsatile tinnitus Sensorineural hearing loss (SNHL) of right ear, unspecified hearing status on contralateral side Expected: 08/16/2024, Expires: 08/16/2025 [facility] Work Phone: Comment on above: Expected: 08/16/2024 , Expires: 08/16/2025 Start: 07-13-2024 End: 07-13-2024 Patient encounter procedure 07/13/2024 2:30 PM EDT Office Visit Maggy Hernandez [facility] - Medical Oncology [address] [place] [address], [place] [phone] Jeanette Tijerina PA [address] [facility] [place] [address] Maggy Hernandez [facility] Start: 07-12-2024 End: 07-12-2024 Patient encounter procedure 07/12/2024 8:30 AM EDT Office Visit [facility] [address] [place] [phone] Herb Medel DO [address] [place] [address] [facility] Start: 07-06-2024 End: 07-06-2024 Patient encounter procedure 07/06/2024 1:30 PM EDT Office Visit Maggy Hernandez [facility] - Medical Oncology [address] [place] [phone] Jeanette Tijerina PA [address] [facility] [place] [address] Maggy Hernandez [facility] Start: 06-29-2024 End: 06-29-2024 Patient encounter procedure 06/29/2024 3:00 PM EDT Office Visit Maggy Hernandez [facility] - Medical Oncology [address] [place] [address], [place] [address] Jeanette Tijerina PA [address] [facility] [place] [address] Maggy [facility] Start: 06-23-2024 End: 06-23-2024 Admission to same day surgery center 06/23/2024 7:30 AM EST - 06/23/2024 9:15 AM EST Surgery [facility] [address] [place] [phone] [place] [address] [place] [address], [address] [place] [address] EXCISION CYST BARTHOLIN [57405 (CPT )] [facility] Comment on above: EXCISION CYST BARTHO RUBI [02608 (CPT )] Start: 06-23-2024 End: 06-23-2024 Exc bartholins gland/cyst EXCISION CYST BARTHOLIN Abscess of Bartholin gland 06/23/2024 7:30 AM EST [facility] Start: 06-23-2024 Subsequent hospital visit by physician 06/23/2024 7:30 AM EST Hospital Encounter [facility] [address] [place] [phone] Daniel Gold MD [address] [place] [address], [address] [place] [address] [facility] Start: 06-21-2024 End: 06-21-2024 Patient encounter procedure 06/21/2024 2:00 PM EST [facility] [address] [place] [address] Ubaldo Kaiser, DO [address] [place] [address] [facility] Start: 06-21-2024 End: 06-21-2026 US Heart Transthoracic Transthoracic Echo (TTE) Complete Echocardiography Routine Pulsatile tinnitus Expected: 06/21/2024 (Approximate), Expires: 06/21/2026 [facility] Work Phone: Comment on above: Expected: 06/21/2024 (Approximate), Expires: 06/21/2026 Start: 06-15-2024 End: 06-15-2024 Patient encounter procedure 06/15/2024 1:45 PM EST Office Visit [facility] [address] [place] [phone] Florence Howard, AUD [address] [place] [address] Arrived [facility] Comment on above: Arrived Start: 06-13-2024 End: 06-13-2024 Patient encounter procedure 06/13/2024 10:45 AM EST [facility] [address] [phone] Florence Howard, AUD [address] [place] [address] [facility] Start: 06-10-2024 End: 06-10-2024 Patient encounter procedure 06/10/2024 10:30 AM EST [facility] [address] [address] [facility] Start: 06-09-2024 End: 06-09-2025 XR Chest PA and Lateral X-ray chest 2 views Imaging Routine Bartholin cyst Preop testing Expected: 06/09/2024, Expires: 06/09/2025 [facility] Comment on above: Expected: 06/09/2024 , Expires: 06/09/2025 Start: 05-24-2024 End: 07-22-2025 MG Breast - bilateral Screening Bilateral screening mammogram Imaging Routine Encounter for screening mammogram for malignant neoplasm of breast Expected: 05/24/2024, Expires: 07/22/2025 [facility] Work Phone: Comment on above: Expected: 05/24/2024 , Expires: 07/22/2025 Start: 05-24-2024 End: 05-24-2024 Patient encounter procedure 05/24/2024 1:50 PM EST Office Visit [facility] [address] [facility] [facility] [place] [phone] Zeynep Barbour PA [address] [facility] [address] [place], [place] [phone] Arrived [facility] Comment on above: Arrived Start: 05-02-2024 End: 05-02-2024 Patient encounter procedure 05/02/2024 9:00 AM EST Office Visit [facility] [address] [facility] [facility] [place] [phone] Herb Medel DO [address] [facility] [address] [place], [place] [phone] [facility] Start: 12-20-2023 COVID-19 Vaccine ( season) COVID-19 Vaccine ( season) [facility] Start: 12-20-2023 Influenza vaccination N [facility] Start: 06-04-2023 Screening for malign ant neoplasm of breast Mammogram [facility] Start: 10-20-2019 Administration of varicella zoster vaccine Zoster (Shingles) Vaccine (1 of 2) [facility] Start: 10-20-1987 Adult BMI Follow Up Plan Adult BMI F ollow Up Plan [facility] Start: 1981 Depression Screening Depression Scre ening [facility] Start: 1981 Tobacco Screening Tobacco Screening [facility] Start: 1969 Screening for malign ant neoplasm of colon [facility] End: 06-09-2025 CBC W Auto Differential panel - Blood CBC with auto diff Lab Routine Bartholin cyst Preop testing 1 Occurrences starting 06/09/2024 until 06/09/2025 [facility] Work Phone: Comment on above: 1 Occurrences starti ng 06/09/2024 until 06/09/2025 End: 06-09-2025 Comprehensive metabolic 2000 panel - Serum or Plasma Comprehensive metabolic panel Lab Routine Bartholin cyst Preop testing 1 Occurrences starting 06/09/2024 until 06/09/2025 [facility] Comment on above: 1 Occurrences starti ng 06/09/2024 until 06/09/2025 End: 06-09-2025 ECG 12 lead ECG 12 lead ECG Routine Bartholin cyst Preop testing 1 Occurrences starting 06/09/2024 until 06/09/2025 [facility] Comment on above: 1 Occurrences starti ng 06/09/2024 until 06/09/2025 THIN PREP TIS PAP AN D HR HPV DNA THIN PREP TIS PAP AND HR HPV DNA Pathology and Cytology Routine Well woman exam with routine gynecological exam Ordered: 05/24/2024 [facility] Comment on above: Ordered: 05/24/2024 [facility] Immunizations Immunization Date Immunization Notes Care Provider Fa cility 12-23-2023 tetanus toxoid, reduced diphtheria toxoid, and acellular pertussis vaccine, adsorbed Ben De Leon DO Work Phone: [facility] 03-18-2021 SARS-CoV-2 (COVID-19 ) mRNA BNT-162b2 vax Anna Hassan [facility] Comment on above: Result Comment: 2022: [id number] 05-14-2012 hepatitis A vaccine, adult dosage Anna Hassan [facility] 05-14-2012 hepatitis B vaccine, pediatric or pediatric/adolescent dosage Anna Hassan [facility] 04-05-2009 novel [id number], preservative-free, injectable Ubaldo Kaiser DO Work Phone: [facility] 04-05-2009 influenza virus vaccine, unspecified formulation Daniel Gold MD Work Phone: [facility] NEGATED: Highlighted row has not occurred!05-18-2023 influenza virus vaccine, unspecified formulation Anna Hassan [facility] NEGATED: Highlighted row has not occurred!04-24-2023 influenza virus vaccine, unspecified formulation Matthew Carrasco [facility] NEGATED: Highlighted row has not occurred!02-27-2021 influenza virus vaccine, unspecified formulation Anna Hassan [facility] Payers Date Payer Category Payer [facility] [id number] 2021 [facility] - [facility] [id number] 2018 Unknown [id number] 1969 Unknown [id number] 2.16.840.1.265223.3.579. 2.647 1969 Unknown [id number] 2.16.840.1.721919.3.579. 2.593 1969 Unknown [id number] 2.16.840.1.868137.3.579. 2.593 1969 Unknown [id number] 2.16.840.1.487450.3.579. 2.593 1969 Unknown [id number] 2.16.840.1.782687.3.579. 2.593 1969 Unknown [id number] 2.16.840.1.867425.3.579. 2.593 1969 Unknown [id number] 2.16.840.1.310400.3.579. 2.128 1969 Unknown [id number] 2.16.840.1.054657.3.579. 2.1285 1969 Unknown [id number] 2.16.840.1.935178.3.579. 2.1285 1969 Unknown [id number] 2.16.840.1.679670.3.579. 2.1285 1969 Unknown [id number] 2.16.840.1.745835.3.579. 2.1285 1969 Unknown [id number] 2.16840.1.523648.3.579. 2.1285 1969 Unknown [id number] 2.0.1.966461.3.579. 2.1285 1969 Unknown [id number] 2.16840.1.100194.3.579. 2. 1969 Unknown [id number] 2.16840.1.552999.3.579. 2. 1969 Unknown [id number] 2.16840.1.844736.3.579. 2.72 1969 Unknown [id number] 2.16840.1.816962.3.579. 2.72 1969 Unknown [id number] 2.16.840.1.465463.3.579. 2.72 1969 Unknown [id number] 2.16.840.1.878332.3.579. 2.72 1969 Unknown [id number] 2.16.840.1.436745.3.579. 2.128 1969 Unknown [id number] 2.16.840.1.063328.3.579. 2.1285 1969 Unknown [id number] 2.16.840.1.429689.3.579. 2.9 1969 Unknown [id number] 2.16.840.1.174787.3.579. 2.9 1969 Unknown [id number] 2.16.840.1.996301.3.579. 2.9 1969 Unknown [id number] 2.16.840.1.222015.3.579. 2.9 1969 Unknown [id number] 2.16.840.1.088307.3.579. 2.1259 1959 [id number] 2.16.840.1.092122.19 Self-pay Self Pay [id number] Unknown [id number] Social History Date Type Detail Facility Start: 04-27-2023 End: 08-16-2024 Sex Assigned At [facility] Start: 05-02-2021 End: 06-21-2024 Tobacco smoking status Ex-smoker (finding) [facility] Comment on above: denies Tobacco smoking status Never [facility] Start: 1970 Sex Assigned At Female F [facility] Start: 11-15-2022 Tobacco smoking stat us CTIS Never smoked tobacco [facility] Start: 12-23-2023 End: 08-16-2024 Alcoholic beverage intake Lifetime non-drinker (finding) [facility] Start: 04-27-2023 End: 08-16-2024 History of Social function [facility] Start: 11-15-2022 Alcohol Comment caffeine: 1-2 cups/d ay [facility] Start: 11-10-2022 Gender identity Identifies as female gender (finding) [facility] Start: 04-20-1985 End: 04-20-2015 History of tobacco use Current smoker [facility] Start: 04-20-1985 End: 04-20-2015 History of tobacco use Cigarette Smoker [facility] Start: 10-04-2021 End: 06-10-2024 Tobacco use and exposure Smokeless tobacco non-user [facility] Start: 10-04-2021 End: 07-13-2024 Alcoholic beverage intake Ex-drinker (finding) [facility] Start: 1970 Sex assigned at Not on file P [facility] Start: 11-23-2014 Sex Female (finding) [facility] History of tobacco use Passive smoker [facility] Functional Status Date Assessment Result Facility 12-29-2023 Functional Status N/A [facility] 08-04-2023 Functional Status N/A [facility] 05-19-2023 Functional Status N/A [facility] 11-17-2022 Functional Status N/A [facility] Clinical Notes 07-26-2021 to 08-16-2024 Ubaldo Kaiser, - 08/16/2024 3:30 PM [facility] Kinney - 07/13/2024 10:00 AM [facility] Kinney - 06/29/2024 3:00 PM EDTTelephone Encounter - Regina Monsivais RN - 06/29/2024 10:11 AM EDT Note Date & Type Note Facility 08-16-2024 History of Presen t illness Narrative Subjective Patient ID: Tiera Wakefield is a 53 y.o. female who presents for Tinnitus (Echo results) HPI 53-year-old white female presents today for evaluation of pulsatile tinnitus of her right ear. Describes difficulties going on for the past few months. She also describes high-frequency hearing in both ears. Presents today for further evaluation and treatment Review of Systems Patient denies any fever. Does describe some difficulties with degenerative changes of her neck. Denies any shortness of breath. Denies any weight change. Denies any history of head injury. Family history of brain aneurysm Denies dizziness. The pulsatile tinnitus seems to be isolated to the right side. Denies any irregular heartbeat. The pulsatile tinnitus is isolated to the right side. The patient does describe a history of cervical disc disease. The rest of her review of systems is negative Allergies as of 08/16/2024 (No Known Allergies) Past Medical History: Diagnosis Date Acid reflux 06/20/2024 Acute gastric ulcer 03/10/2014 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/20/2024 726.0 LEFT [facility] [id number] DOI 07/29/12 Asthma Atypical nevi Austin's esophagus 06/20/2024 Bartholin cyst 06/08/2024 Bursitis of shoulder 06/30/2016 Cervical spondylosis with radiculopathy 06/20/2024 Colon polyp 06/20/2024 Dysphagia 06/20/2024 Full thickness rotator cuff tear 03/12/2014 840.6 LEFT, RECURRENT [facility] [id number] DOI 07/29/12 History of colon polyps 06/20/2024 History of diverticulitis 06/20/2024 History of repair of ACL 2005 History of shoulder surgery Irregular bowel habits 06/20/2024 Irregular Z line of esophagus 06/20/2024 Lumbar disc herniation 02/16/2018 Added automatically from request for surgery [id number] Lumbosacral disc herniation 06/20/2024 Osteoarthritis 06/20/2024 RLQ abdominal pain 06/20/2024 Schatzki's ring 06/20/2024 Upper abdominal pain 06/20/2024 Current Outpatient Medications: citalopram (CeleXA) 20 MG tablet, 1 (one) time each day at the same time, Disp: , Rfl: esomeprazole (NexIUM) [address] capsule, 1 capsule 1 (one) time each day at the same time, Disp: , Rfl: Past Surgical History: Procedure Laterality Date APPENDECTOMY GALLBLADDER KNEE SURGERY Left SHOULDER SURGERY Left x6 Social History Socioeconomic History Marital status: Spouse name: Not on file Number of children: Not on file Years of education: Not on file Highest education level: Not on file Occupational History Not on file Tobacco Use Smoking status: Former Types: Cigarettes Smokeless tobacco: Not on file Substance and Sexual Activity Alcohol use: Never Comment: caffeine: 1-2 cups/day Drug use: Not on file Sexual activity: Not on file Other Topics Concern Not on file Social History Narrative Not on file Social Drivers of Health Financial Resource Strain: Not on file Food Insecurity: No Food Insecurity (06/10/2024) Received from [facility] Hunger Screening Within the past 12 months we worried whether our food would run out before we got money to buy more.: Never True Within the past 12 months the food we bought just didn't last and we didn't have money to get more.: Never True Transportation Needs: Not on file Physical Activity: Not on file Stress: Not on file Social Connections: Not on file Intimate Partner Violence: Not on file Housing Stability: Not on file Objective ENT Physical Exam General Examination: General overview: Normal, age-appropriate, no evidence of distress Head: Normocephalic, atraumatic Eyes: Pupils are equally round and reactive to light and accommodation, extraocular muscles are intact Ears: External ear architecture within normal limits, ear canals are patent, tympanic membranes are intact. Review of her audiogram reveals normal tympanograms. There is a small amount of high-frequency sensorineural loss on the right side at 4000 hertz. Nose: External nose unremarkable, nares patent, septum intact, mild deviation of the septum. no evidence of congestion. Oral cavity: Mucosa moist, no evidence of ulcer, mass, or lesion Throat: Clear Neck/thyroid: Neck supple, full range of motion, no cervical lymphadenopathy, no evidence of thyromegaly , auscultation yields no evidence of bruit. Lymph nodes: No cervical lymphadenopathy Skin: Warm and dry, no evidence of suspicious lesions, no rash Heart: No jugular venous distention, point of maximal impulse normal , auscultation does yield some irregular heartbeats most notable at the right upper sternal border . Review of her echocardiogram reveals no evidence of abnormal finding. Lungs: Good air movement, no audible wheezing, no shortness of breath Chest: Normal shape and expansion Abdomen: Normal, soft, nontender, nondistended Musculoskeletal: Cervical spine normal, full range of motion Extremities: No clubbing, cyanosis, or edema Peripheral pulses: 2+ radial, 2+ carotid Neurologic: Alert and oriented, cranial nerves 2-12 are grossly intact Psych: Alert and oriented, normal affect, no evidence of distress Assessment/Plan Diagnoses and all orders for this visit: Family history of aneurysm Comments: with a family history of cerebrovascular accident from aneurysm, I think it necessary for more evaluation Pulsatile tinnitus Comments: recommend CT scan of the neck and brain. The patient is unable to tolerate MRI Orders: - CT angiogram head; Future Sensorineural hearing loss (SNHL) of right ear, unspecified hearing status on contralateral side Comments: recommend repeat audiogram in 1 year Orders: - CT angiogram head; Future The patient is encouraged to avoid caffeine, alcohol, nicotine, stress and dietary salt from their lifestyle. Ambient noise in her room may also help tolerate tinnitus. documented in this encounter [facility] 07-13-2024 History of Presen t illness Narrative Subjective: Tiera Wakefield is a 53 y.o. female who is s/p a excision of right bartholin's gland on 06/23/24. Pathology: benign Patient reports doing well. She is not taking anything for pain and feels she is healing well. She reports a few episodes of bright red bleeding that she believes is coming from the urethra. She denies any burning, back pain, pelvic pain or cramping. The bleeding has become minimal and light pink over the last few days. She is tolerating normal diet and passing gas. Normal bowel habits. No fevers, chills, N/V, N/T, SOB, vaginal bleeding. She does mention a concern regarding intercourse. She states intercourse has been painful for her in the past, states it is often dry and burning of on penetration. She has estrogen cream for a short while but does not feel like she used it appropriately. She also thinks the coconut oil prompted some of her Bartholin gland infections. Patient was originally a consultation from Dr. Medel for evaluation and management of recurrent right Bartholin's gland abscess. Oncology History No history exists. Tiera Wakefield Denies Early satiety Denies Abdominal distention Denies Leg swelling Denies Shortness of breath Denies Vaginal bleeding Denies Change in bowel habits Denies Change in bladder habits Denies Nausea and vomiting All other systems negative, unless specifically noted in HPI. Past Gynecologic History: OB History No obstetric history on file. No LMP recorded. Patient has had an implant. Hormonal Contraceptives No HRT use No History of abnormal pap No Past Surgical History: Procedure Laterality Date CHOLECYSTECTOMY 2013 COLONOSCOPY x 2 ESOPHAGOGASTRODUODENOSCOPY EXCISION CYST BARTHOLIN Right 06/23/2024 Performed by Daniel Gold MD at [facility] KNEE SURGERY Left 2008 meniscus SHOULDER SURGERY Left 7 total shoulder surgery, [id number] Past Medical History: Diagnosis Date Asthma Colon polyp COVID 04/2024 Depression Visual impairment glasses Family History Problem Relation Age of Onset Ovarian cancer Mother Aneurysm Father Atrial fibrillation Father Anesthesia problems Neg Hx Social History Socioeconomic History Marital status: Tobacco Use Smoking status: Former Current packs/day: 0.00 Average packs/day: 1 pack/day for 30.0 years (30.0 ttl pk-yrs) Types: Cigarettes Start date: 1985 Quit date: 2016 Years since quittin.2 Passive exposure: Current Smokeless tobacco: Never Vaping Use Vaping status: Never Used Substance and Sexual Activity Alcohol use: Not Currently Drug use: Not Currently Sexual activity: Defer Social Drivers of Health Food Insecurity: No Food Insecurity (06/10/2024) Hunger Screening Food Insecurity - Worry: Never True Food Insecurity - Inability: Never True Review of Symptoms: Pertinent items are noted in HPI. Objective: BP 142/84 Pulse 64 Temp 36.8 C (98.3 F) (Oral) Resp 16 Ht 160 cm (5' 2.99 ) Wt 74.7 kg (164 lb 9.6 oz) SpO2 99% BMI 29.16 kg/m ECO- Symptomatic; in bed <50% of the day General appearance: alert, appears stated age and cooperative Head: Normocephalic, without obvious abnormality, atraumatic Lungs: clear to auscultation bilaterally Heart: regular rate and rhythm, S1, S2 normal, no murmur, click, rub or gallop Abdomen: soft, nontender Pelvic: vulva - right labia minora incision site healing well without evidence of infection or dehiscence. Urethral opening intact, no signs of injury or active bleeding Extremities: extremities normal, atraumatic, no cyanosis or edema Pulses: 2+ and symmetric Skin: Skin color, texture, turgor normal. No rashes or lesions Lymph nodes: Cervical, supraclavicular, and axillary nodes normal. Neurologic: Grossly normal Labs: Lab Results Component Value Date WBC 5.1 06/10/2024 HGB 14.6 06/10/2024 HCT 43.3 06/10/2024 MCV 88 06/10/2024 PLT 272 06/10/2024 Lab Results Component Value Date GLU 65 06/10/2024 CALCIUM 9.4 06/10/2024 SODIUM 140 06/10/2024 K 4.2 06/10/2024 CO2 32 06/10/2024 BUN 14 06/10/2024 CREATININE 0.83 06/10/2024 No results found for: CA125 Assessment: Patient is diagnosed with Patient Active Problem List Diagnosis (none) - all problems resolved or deleted Plan: Post op care - she is progressing well. She may resume normal activities. Pathology - benign bartholin's gland. May continue well woman care with primary commercial assistant. Hematuria - patient deferred UA today. Explained that her symptoms seem to be improving and may be related to catheter placement during surgery. Can not rule out incisional bloody drainage as well. Encouraged her to call if she has persistent hematuria and we would place a referral to Urology. Dyspareunia: Discussed dyspareunia in detail today with the patient including etiology, symptoms, and management. It appears the cause of her dyspareunia is genitourinary syndrome of menopause (vulvovaginal atrophy). Discussed management of her symptoms. Non-hormonal Moisturizers and Lubricants: First line therapy would be hormone free moisturizers and lubricants. Explained that moisturizers provide fdc relief for vaginal dryness and are used vaginally about 5-7 days a week. Examples of these products include Replens, [place]ven[place], [place] moisturizer, Yadira, and Hyalogyn. Lubricants provide temporary relief for vaginal dryness intended for use with intercourse to minimize friction and irriation. Lubricants may be water, oil or silicone based. It is recommended that lubricants are used around the clitoris, labia and vaginal entrance and may also be used on the partner as well. Examples of lubricants include [place], Astroglide, Uberlube, Pjur, [place], Good Clean Love, and coconut oil. Discussed proper use, safety, potential side effects from moisturizers and lubricants. Samples of various lubricants were provided today as well. Discussed further management by her commercial assistant and estrace vaginal cream as a secondary option if needed. She may also return to our team for sexual health concerns if needed. *The patient has a documented plan of care to address pain. All questions were answered to the patient's satisfaction. She is agreeable to this plan of care. *This note was completed using a voice misdraw hand system. Every effort was made to ensure accuracy. However, inadvertent computerized misdraw hand errors may be present. *An evaluation and management service unrelated to the patient's post-op care was performed today (within the post operative period), therefore a modifier 24 was applied to this visit. .Total time spent was 20 minutes: Preparing to see the patient (e.g., review of tests) Performing a medically appropriate examination and/or evaluation Ordering medications, tests, or procedures Documenting clinical information in the electronic or other health record Care coordination (not separately reported) Jeanette Tijerina PA-C, RD, IF [facility] 07/13/24 1033 [facility] History of Presen t illness Narrative Subjective: Tiera Wakefield is a 53 y.o. female who is s/p a excision of right bartholin's gland on 06/23/24. Pathology: pending Patient reports extensive pain and slight bleeding since her surgery. She states this is moderately controlled with ibuprofen. She ran out of One [place] which she states she was taking mostly at night. 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 She is tolerating normal diet and passing gas. Normal bowel and bladder habits. No fevers, chills, N/V, N/T, SOB, vaginal bleeding. Patient was originally a consultation from Dr. Medel for evaluation and management of recurrent right Bartholin's gland abscess. Oncology History No history exists. Tiera Wakefield Denies Early satiety Denies Abdominal distention Denies Leg swelling Denies Shortness of breath Denies Vaginal bleeding Denies Change in bowel habits Denies Change in bladder habits Denies Nausea and vomiting All other systems negative, unless specifically noted in HPI. Past Gynecologic History: OB History No obstetric history on file. No LMP recorded. Patient has had an implant. Hormonal Contraceptives No HRT use No History of abnormal pap No Past Surgical History: Procedure Laterality Date CHOLECYSTECTOMY 2013 COLONOSCOPY x 2 ESOPHAGOGASTRODUODENOSCOPY EXCISION CYST BARTHOLIN Right 06/23/2024 Performed by Daniel Gold MD at [facility] KNEE SURGERY Left 2008 meniscus SHOULDER SURGERY Left 7 total shoulder surgery, [id number] Past Medical History: Diagnosis Date Asthma Colon polyp COVID 04/2024 Depression Visual impairment glasses Family History Problem Relation Age of Onset Ovarian cancer Mother Aneurysm Father Atrial fibrillation Father Anesthesia problems Neg Hx Social History Socioeconomic History Marital status: Tobacco Use Smoking status: Former Current packs/day: 0.00 Average packs/day: 1 pack/day for 30.0 years (30.0 ttl pk-yrs) Types: Cigarettes Start date: 1985 Quit date: 2016 Years since quittin.2 Passive exposure: Current Smokeless tobacco: Never Vaping Use Vaping status: Never Used Substance and Sexual Activity Alcohol use: Not Currently Drug use: Not Currently Sexual activity: Defer Social Drivers of Health Food Insecurity: No Food Insecurity (06/10/2024) Hunger Screening Food Insecurity - Worry: Never True Food Insecurity - Inability: Never True Review of Symptoms: Pertinent items are noted in HPI. Objective: BP 130/71 Pulse 61 Temp 36.4 C (97.6 F) (Oral) Wt 74.4 kg (164 lb) SpO2 99% BMI 29.05 kg/m ECO- Symptomatic; in bed <50% of the day General appearance: alert, appears stated age and cooperative Head: Normocephalic, without obvious abnormality, atraumatic Lungs: clear to auscultation bilaterally Heart: regular rate and rhythm, S1, S2 normal, no murmur, click, rub or gallop Abdomen: soft, nontender Pelvic: vulva - right labia minora with evidence of minor tissue dehiscence, fresh granulation tissue intact, no active bleeding or sign of infection Extremities: extremities normal, atraumatic, no cyanosis or edema Pulses: 2+ and symmetric Skin: Skin color, texture, turgor normal. No rashes or lesions Lymph nodes: Cervical, supraclavicular, and axillary nodes normal. Neurologic: Grossly normal Labs: Lab Results Component Value Date WBC 5.1 06/10/2024 HGB 14.6 06/10/2024 HCT 43.3 06/10/2024 MCV 88 06/10/2024 PLT 272 06/10/2024 Lab Results Component Value Date GLU 65 06/10/2024 CALCIUM 9.4 06/10/2024 SODIUM 140 06/10/2024 K 4.2 06/10/2024 CO2 32 06/10/2024 BUN 14 06/10/2024 CREATININE 0.83 06/10/2024 No results found for: CA125 Assessment: Patient is diagnosed with Patient Active Problem List Diagnosis Bartholin cyst Plan: Post op care - she is progressing well. Minor tissue dehiscence but healing well by secondary intention. We discussed the restrictions again today encouraging less lifting. We also discussed a pain regimen involving ibuprofen 2-3 times daily with [place] being used at night as needed. May also use ice packs for additional relief. Return to clinic in 2-3 weeks prior to returning to work. An OARRS report was pulled today and her risk score was 310. [place] was given #7, to be taken nightly prn for pain for the diagnosis of vulvar pain and post op pain, Encounter for postoperative care [Z48.89]. In addition, a pain contract was reviewed with the patient, and she agrees to use only one pharmacy for all of her controlled substances, and will not accept pain medication from any other providers without our knowledge. We discussed the appropriate use, storage, and dispsosal of the medication. Finally, we discussed the importance of not mixing medications. Pathology pending. We will follow up once results are available. *The patient has a documented plan of care to address pain. All questions were answered to the patient's satisfaction. She is agreeable to this plan of care. *This note was completed using a voice misdraw hand system. Every effort was made to ensure accuracy. However, inadvertent computerized misdraw hand errors may be present. .Total time spent was 20 minutes: Preparing to see the patient (e.g., review of tests) Performing a medically appropriate examination and/or evaluation Ordering medications, tests, or procedures Documenting clinical information in the electronic or other health record Care coordination (not separately reported) Jeanette Tijerina PA-C, RD, IF [facility] 06/29/24 1526 documented in this encounter [employer] 06-29-2024 Miscellaneous Notes Patient called in w/concerns of infection from excision of Bartholin Cyst. Patient denies fever/chills. Rates pain as constant and 6/10 that is not relieved with Ibuprofen. Patient states her had looked at the incision and states it looks ripped. Explained that it is not uncommon for the incision to open in that area, but that it would heal by secondary intent. Educated on keeping clean and dry. Patient still w/concerns of incision being open and amount of drainage she is noticing. Denies bright red bleeding, describes as serosanguineous like drainage. Spoke with JENNIFER Reid -- Okay with seeing patient today for a 1 week PO appointment in [place]. Offered patient 12:30 or 3:00 today with JENNIFER Reid. Patient agreeable to coming in at 3:00. Address for [place] office given to patient and call was ended. documented in this encounter [facility] 06-29-2024 Telephone encounter Note Patient called in w/concerns of infection from excision of Bartholin Cyst. Patient denies fever/chills. Rates pain as constant and 6/10 that is not relieved with Ibuprofen. Patient states her had looked at the incision and states it looks ripped. Explained that it is not uncommon for the incision to open in that area, but that it would heal by secondary intent. Educated on keeping clean and dry. Patient still w/concerns of incision being open and amount of drainage she is noticing. Denies bright red bleeding, describes as serosanguineous like drainage. Spoke with JENNIFER Reid -- Okay with seeing patient today for a 1 week PO appointment in [place]. Offered patient 12:30 or 3:00 today with JENNIFER Reid. Patient agreeable to coming in at 3:00. Address for [place] office given to patient and call was ended. [facility] 06-25-2024 Miscellaneous Notes Contract: 166 Had cyst and gland removed on 06/23 and she is still bleeding Contract: 166 Paged Resident to [facility] Resident called back and relayed info to call documented in this encounter [facility] 06-25-2024 Telephone encounter Note Contract: 166 Had cyst and gland removed on 06/23 and she is still bleeding [facility] 06-25-2024 Telephone encounter Note Contract: 166 Paged Resident to [facility] Resident called back and relayed info to call [facility] 06-21-2024 History of Presen t illness Narrative Subjective Patient ID: Tiera Wakefield is a 53 y.o. female who presents for Tinnitus (New Patient : tinnitus - Pulse and loud ringing) HPI 53-year-old white female presents today for evaluation of pulsatile tinnitus of her right ear. Describes difficulties going on for the past few months. She also describes high-frequency hearing in both ears. Presents today for further evaluation and treatment Review of Systems Patient denies any fever. Does describe some difficulties with degenerative changes of her neck. Denies any shortness of breath. Denies any weight change. Denies any history of head injury. Denies dizziness. The pulsatile tinnitus seems to be isolated to the right side. Denies any irregular heartbeat. The rest of her review of systems is negative Allergies as of 06/21/2024 (No Known Allergies) Past Medical History: Diagnosis Date Acid reflux 06/20/2024 Acute gastric ulcer 03/10/2014 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/20/2024 726.0 LEFT [facility] [id number] DOI 07/29/12 Asthma (CMS/[facility]) Atypical nevi Austin's esophagus 06/20/2024 Bartholin cyst 06/08/2024 Bursitis of shoulder 06/30/2016 Cervical spondylosis with radiculopathy 06/20/2024 Colon polyp 06/20/2024 Dysphagia 06/20/2024 Full thickness rotator cuff tear 03/12/2014 840.6 LEFT, RECURRENT [facility] [id number] DOI 07/29/12 History of colon polyps 06/20/2024 History of diverticulitis 06/20/2024 History of repair of ACL 2005 History of shoulder surgery Irregular bowel habits 06/20/2024 Irregular Z line of esophagus 06/20/2024 Lumbar disc herniation 02/16/2018 Added automatically from request for surgery [id number] Lumbosacral disc herniation 06/20/2024 Osteoarthritis 06/20/2024 RLQ abdominal pain 06/20/2024 Schatzki's ring 06/20/2024 Upper abdominal pain 06/20/2024 Current Outpatient Medications: citalopram (CeleXA) 20 MG tablet, 1 (one) time each day at the same time., Disp: , Rfl: esomeprazole (NexIUM) [address] capsule, 1 capsule 1 (one) time each day at the same time, Disp: , Rfl: Past Surgical History: Procedure Laterality Date APPENDECTOMY GALLBLADDER KNEE SURGERY Left SHOULDER SURGERY Left x6 Social History Socioeconomic History Marital status: Spouse name: Not on file Number of children: Not on file Years of education: Not on file Highest education level: Not on file Occupational History Not on file Tobacco Use Smoking status: Former Types: Cigarettes Smokeless tobacco: Not on file Substance and Sexual Activity Alcohol use: Never Comment: caffeine: 1-2 cups/day Drug use: Not on file Sexual activity: Not on file Other Topics Concern Not on file Social History Narrative Not on file Social Drivers of Health Financial Resource Strain: Not on file Food Insecurity: No Food Insecurity (06/10/2024) Received from [facility] Hunger Screening Within the past 12 months we worried whether our food would run out before we got money to buy more.: Never True Within the past 12 months the food we bought just didn't last and we didn't have money to get more.: Never True Transportation Needs: Not on file Physical Activity: Not on file Stress: Not on file Social Connections: Not on file Intimate Partner Violence: Not on file Housing Stability: Not on file Objective ENT Physical Exam General Examination: General overview: Normal, age-appropriate, no evidence of distress Head: Normocephalic, atraumatic Eyes: Pupils are equally round and reactive to light and accommodation, extraocular muscles are intact Ears: External ear architecture within normal limits, ear canals are patent, tympanic membranes are intact. Review of her audiogram reveals normal tympanograms. There is a small amount of high-frequency sensorineural loss on the right side at 4000 hertz. Nose: External nose unremarkable, nares patent, septum intact, mild deviation of the septum. no evidence of congestion. Oral cavity: Mucosa moist, no evidence of ulcer, mass, or lesion Throat: Clear Neck/thyroid: Neck supple, full range of motion, no cervical lymphadenopathy, no evidence of thyromegaly , auscultation yields no evidence of bruit. Lymph nodes: No cervical lymphadenopathy Skin: Warm and dry, no evidence of suspicious lesions, no rash Heart: No jugular venous distention, point of maximal impulse normal , auscultation does yield some irregular heartbeats most notable at the right upper sternal border Lungs: Good air movement, no audible wheezing, no shortness of breath Chest: Normal shape and expansion Abdomen: Normal, soft, nontender, nondistended Musculoskeletal: Cervical spine normal, full range of motion Extremities: No clubbing, cyanosis, or edema Peripheral pulses: 2+ radial, 2+ carotid Neurologic: Alert and oriented, cranial nerves 2-12 are grossly intact Psych: Alert and oriented, normal affect, no evidence of distress Assessment/Plan Diagnoses and all orders for this visit: Sensorineural hearing loss (SNHL) of right ear, unspecified hearing status on contralateral side Comments: hearing loss is mild, would recommend repeat audiogram in 1 year Pulsatile tinnitus Comments: recommend echocardiogram to look for evidence evidence of valvular leakage or irregularity Orders: - Transthoracic Echo (TTE) Complete; Future Tinnitus, unspecified laterality Comments: have given this patient information regarding tinnitus precautions The patient is encouraged to avoid caffeine, alcohol, nicotine, stress and dietary salt from their lifestyle. Ambient noise in her room may also help tolerate tinnitus. documented in this encounter [facility] 06-15-2024 History of Presen t illness Narrative History: Patient was referred for an audiological evaluation, reporting pulsatile tinnitus along with a high pitch buzz in the right ear. Onset of symptoms began approximately 8 months ago. Patient denies symptoms of hearing loss, ear pain, or vertigo. History is positive for occupational noise exposure. Otoscopic Exam: Revealed ear canals were clear from excessive cerumen, bilaterally. Pure Tone Audiometry Audio indicated normal hearing sensitivity 250-3000 Hz, sloping to a mild sensorineural hearing loss 6559-2597 Hz in the left ear. The right ear exhibited normal hearing 250-2000 Hz, sloping to a mild sensorineural hearing loss 6164-4123 Hz, returning to normal hearing at 8000 Hz. Speech Audiometry Right SRT = 15 dB and word discrimination score at 45 dBHL = 100% Left SRT = 15 dB and word discrimination score at 45 dBHL = 100% Tympanometry Normal tympanograms, bilaterally, indicating normal middle ear function Impressions: Dr. Kaiser 06-21-2024 documented in this encounter [facility] 06-10-2024 Instructions Eliana Soriano RN - 06/10/2024 10:30 AM EST Your surgery/procedure is scheduled at [facility] on 06/23/2024 at 7:30 am Arrival Time 5:30 am [facility] Address: [address] [place] [address], [address] [place] [address] in the Emergency Center Parking lot. Report to the front desk monitor in the Emergency/Surgery Registration lobby of the hospital. Notify your SURGEON if you develop any illness such as a cold, cough, fever, sore throat, vomiting or are hospitalized between now and your surgery. Please call Pre-Admission Clinic at [phone] if you have any questions prior to surgery. For questions the morning of surgery, call the Pre-op Department at [phone]. Medication Instructions (Do not stop your medications without consulting the prescribing physician). Take the following medications the morning of surgery with a sip of water:none,pt takes meds at night Diabetic or Weight loss medications: HOLD Wegovy LAST DOSE pt took last dose 06/06/24-pt isn't going to take anymore due to side effects Take inhalers as prescribed the morning of surgery. Due to the risk associated with these medications. If these medications are not held per instruction below, your surgery is at an increased risk for cancellation SGLT2 Medications- Hold 3 days prior to surgery: Jardiance, Empagliflozin, Farxiga, Dapagliflozin, Invokana, Canagliflozin, Trijardy, Synjardy GLP-1 Medications (Injection or Pill)- If taken daily hold day of surgery. If taken weekly, hold 1 week prior to surgery: Adlyxin, Byetta, Bydureon, Ozempic, Rybelsus,Trulicity, Victoza, Wegovy, Lixisenatide, Exenatide, Semaglutide, Dulaglutide, Liraglutide GIP/GLP-1(Injection or Pill)- If taken daily hold day of surgery. If taken weekly, hold 1 week prior to surgery: Brian . Blood thinners: Please contact your prescribing physician regarding a stop/hold date for these medications. Medications such as Coumadin, Heparin, Aspirin, Plavix, Eliquis, Pradaxa Diabetics: If you take insulin, contact your prescribing doctor for instructions on how to manage this the night before and the morning of surgery. Non-steriodal Anti-Inflammatory Drugs (NSAIDS)- Hold 3 days prior to surgery unless otherwise directed by your surgeon. Vitamins/Herbal Products: You may continue to take your prescribed vitamins such as potassium, iron, vitamin B, vitamin C, or multivitamin unless specifically instructed by your surgeon to hold. STOP taking all herbal products/teas one week prior to your surgery. Marijuana: Stop marijuana 72 hours prior to surgery, stop CBD oil 48 hours prior to surgery. If you have been given bowel prep instructions by your surgeon, please call the surgeon's office with any questions about these instructions. What do I do the day of Surgery? Age 2 through adult - Stop all solids by midnight, You may have clear liquids up to 2 hours before surgery, unless otherwise instructed by your surgeon Clear liquids are: water, sports drinks such as Gatorade or G2, or apple juice. You may NOT have: tube feedings, dairy products, alcoholic beverages, orange juice, or any liquids with solids or pulp in it If applicable, shower again with CHG soap the morning of your surgery. If you received a green plastic bracelet, bring it with you the day of surgery and your nurse will put it on you. What do I need to do to prepare for surgery? If you will be going home the same day as your surgery, arrange for an adult over [address] Riding in a bus or taxi by yourself is not permitted. You should not smoke or drink alcohol 24 hours before your surgery. Smoking increases the risk of breathing problems after surgery. Alcohol thins the blood and may cause bleeding problems during surgery If you have been assigned WANDA Education by your surgeon's office, please complete this education prior to your surgery. For questions regarding WANDA education, reach out to your surgeons office. If you have been given a prescription for occupational, physical or speech therapy, please set up these appointments before your procedure. If you would [facility] to [facility], please call [phone] ([phone]). Do not use lotions, creams, powders, perfume, make up, cologne or after-shaves day of surgery. Remove ALL jewelry including wedding rings, body piercings, hair extensions that contain metal, nail marshallese, make-up, and contact lens. You may brush your teeth the morning of surgery, but do not swallow the water. Wear your dentures and partial plates to the hospital (no adhesive). Shower the night the before. If applicable, use the CHG (chlorhexidine gluconate) soap or wipes. Please be advised, [facility] has transitioned to a cashless payment system. What should I bring to the hospital? If you received a green plastic bracelet, bring it with you the day of surgery and your nurse will put it on you. Eyeglass or contact lens case If you will be spending the night, please bring personal care items and leave them in the car until you are taken to your room after surgery. Leave ALL valuables at home. If any of these instructions conflict with those you recieved from the surgeon, please seek clarification from your surgeon's office. DEEP BREATHING EXERCISES This exercise helps promote good air exchange and helps to prevent pneumonia after surgery. Breathe in slowly and deeply through the nose. Hold your breath for a few seconds and then exhale slowly through the mouth. Repeat this three times and then cough. Coughing helps to clear your lungs. If you have had a surgery with an incision into your abdomen or chest, press gently against your incision with a pillow or a folded blanket when you cough. Please be aware - it may not be bonilla to cough following some types of surgeries involving the eyes, ears, sinuses and throat. Always follow your doctor's instructions. LEG EXERCISES These exercises help promote good circulation and help to prevent blood clots after surgery. Point your toes to the ceiling and then point them to the wall. Do this slowly about 15-20 times. You may also move your feet in circles. Do the exercise that is most comfortable for you. If you have had surgery involving your shoulder or arm, we recommend you move your fingers. PRACTICING We ask that you begin practicing these exercises before your surgery. After surgery try to do both exercises at least every 2 hours during the day and early evening. SURGICAL SITE INFECTION AND PREVENTION What is a Surgical Site Infection? Infection can happen to the area of the body where surgery is done. This is called a surgical site infection (SSI). A SSI does not happen very often. Can SSIs be treated? Antibiotics are used to treat SSI. Some patients may need another surgery to treat the infection. The doctor will discuss treatment options with you. What are some of the things that hospitals are doing to prevent SSIs? Soap and water or alcohol hand rub are used before and after caring for each patient.Special soap is used to clean surgery workers hands and arms just before the surgery. Masks, gowns, gloves and hair covers are worn during the surgery to keep the area clean. Hair in the surgery area may be removed with clippers (not razors). A special soap that kills germs is used to clean the skin at the surgery site. Antibiotics may be given before the surgery starts. What can you do to prevent SSIs? Before surgery: You may be asked to shower or bathe with a special soap that kills germs the night before and the day of surgery. Use the soap as you were told. If you smoke, stop or cut down. Ask your doctor about ways to quit. Do not shave near where you will have surgery. Shaving can irritate the skin and make it easier to get and infection. After surgery: Be sure that the doctors and nurses clean their hands before and after touching you. Be sure your family and friends clean their hands before and after visiting you. Do not be afraid to remind them. * Care for your wound at home as told by your doctor or nurse * Call your doctor right away if you have fever, redness, increased pain, or drainage at the surgery site. Further questions? Contact the doctor, nurse or the Infection Prevention and Control department if you have any questions. PATIENT RIGHTS AND RESPONSIBILITIES As a patient at [facility], you have the right to: Receive medical care and be informed of who is taking care of you Be treated with dignity and respect Have a family member/sales representative raw fibers of choice and your physician notified of your admission Receive information and actively participate in decisions about your care and treatment Refuse care, treatment and services Decide who may provide your support and speak for you Access church and spiritual services Participate in ethical issues and questions about your care Receive private and confidential care Have appropriate assessment and management of your pain Know guest visitation restrictions or limitations Have an advance directive Access protective services Consent or refuse to participate in research studies or production or recordings, films or other images Have resolution of your complaints Receive information of hospital charges and payment methods Patient/patient sales representative raw fibers responsibilities are to: Provide information about health status to facilitate care, treatment and services Follow the treatment, plan, keep appointments and speak up when you do not understand the plan Respect the rights of other patients and healthcare personnel Follow organizational rules and regulations that support quality care and a safe environment Fulfill financial obligations as promptly as possible Bathing Before Surgery- Patients greater than 2 months of age You can help to lower your chance of infection at the site of your surgery by showering or bathing with a special soap called chlorhexidine gluconate (CHG). Germs live on your skin. This special soap will help lower the amount of germs so they do not get into your surgery site. Special points to know: Do not use this soap if you know that you are allergic to CHG. Shower or bathe with CHG the night before and the morning of surgery. Do not shave the area of your body where the surgery will be done within 7 days of surgery. The CHG may make your skin a little dry, but do not use lotion. Steps for Bathing: Wash your hair as usual with your normal shampoo. Rinse your hair and body well after you shampoo to get rid all of the shampoo. Wash gently with the CHG from the neck down, but do not scrub the skin to hard. Be sure to wash the area of your surgery very well. If showering, turn the water off while washing and then turn the water back onto rinse. Do not get CHG in the genital (private) area. Do not get CHG in the eyes, ears, nose or mouth. (If the soap gets into the eyes, flush them immediately with water). Do not wash with regular soap after CHG is used. Pat skin dry with a soft, clean towel. Patient should sleep in freshly laundered night clothes and report for surgery in clean clothes. documented in this encounter [facility] 06-10-2024 Miscellaneous Notes Pt had a one view CXR done on 04/30/[address] [facility] that was received by fax and scanned into [employer]. Gina Alberts at Dr Gold's office was notified and will check with Dr Mehta and will let pt know if she has to go for a two view prior to surgery. documented in this encounter [facility] 06-10-2024 Nurse Note Pt had a one view CXR done on 04/30/[address] [facility] that was received by fax and scanned into [employer]. Gina Alberts at Dr Gold's office was notified and will check with Dr Mehta and will let pt know if she has to go for a two view prior to surgery. [facility] 06-08-2024 History of Presen t illness Narrative Subjective: Tiera is a 53 y.o. female here for consultation from Dr. Medel for evaluation and management of recurrent right Bartholin's gland abscess. This patient has had a right-sided Bartholin's gland abscess intermittently for proximally 6 years, this is commonly treated with incision and drainage and oral antibiotics. She has had this twice in the last 6 months and desires definitive surgical management. We discussed surgical excision of this portion of the vulva in detail. We will plan this in the near future. Risks, benefits, alternatives to surgery were discussed in detail. Oncology History No overview note Tiera : Denies Early satiety Denies Abdominal distention Denies Leg swelling Denies Shortness of breath Denies Vaginal bleeding Denies Change in bowel habits Denies Change in bladder habits Denies Nausea and vomiting All other systems negative, unless specifically noted in HPI. Past Gynecologic History: OB History No obstetric history on file. No LMP recorded. Hormonal Contraceptives No HRT use No History of abnormal pap No Past Surgical History: Procedure Laterality Date CHOLECYSTECTOMY COLONOSCOPY KNEE SURGERY Left SHOULDER SURGERY Left SHOULDER SURGERY Left SHOULDER SURGERY Left SHOULDER SURGERY Left SHOULDER SURGERY Left SHOULDER SURGERY Left SHOULDER SURGERY Left 7 total shoulder surgery Past Medical History: Diagnosis Date Asthma Colon polyp Family History Problem Relation Age of Onset Ovarian cancer Mother Aneurysm Father Atrial fibrillation Father Social History Tobacco Use Smoking status: Former Current packs/day: 0.00 Average packs/day: 1 pack/day for 30.0 years (30.0 ttl pk-yrs) Types: Cigarettes Start date: 1985 Quit date: 2015 Years since quittin.1 Smokeless tobacco: Never Substance Use Topics Alcohol use: Not Currently Review of Symptoms: Pertinent items are noted in HPI. Objective: Wt 74 kg (163 lb 3.2 oz) BMI 28.91 kg/m ECO- Asymptomatic General appearance: alert, appears stated age and cooperative Head: Normocephalic, without obvious abnormality, atraumatic Ears: normal TM's and external ear canals both ears Neck: no adenopathy, no carotid bruit, no JVD, supple, symmetrical, trachea midline and thyroid not enlarged, symmetric, no tenderness/mass/nodules Lungs: clear to auscultation bilaterally Breasts: normal appearance, no masses or tenderness Heart: regular rate and rhythm, S1, S2 normal, no murmur, click, rub or gallop Abdomen: abnormal findings: Soft, nontender, nondistended, no rebound or guarding. Pelvic: cervix normal in appearance, external genitalia- 1.5 cm right Bartholin's gland cystic structure just below the surface of the skin with well-healed incision, uterus normal size, shape, and consistency, vagina normal without discharge Extremities: extremities normal, atraumatic, no cyanosis or edema Pulses: 2+ and symmetric Skin: Skin color, texture, turgor normal. No rashes or lesions Lymph nodes: Cervical, supraclavicular, and axillary nodes normal. Neurologic: Grossly normal Labs: No results found for: WBC , RBC , HGB , HCT , MCH , MCHC , PLT , MPV , RDW No results found for: BUN , NA , K , CL , BICARBONATE , GLUCOSE , ALBUMIN , PROT , CA , ALKP , AST , LABBILI No results found for: GGT No results found for: LDH No results found for: MG No results found for: PHOS No results found for: URIC Assessment: Patient is diagnosed with Patient Active Problem List Diagnosis Bartholin cyst Plan: 1. The patient has a documented plan of care to address pain. 2. Recurrent Bartholin's gland abscess-plan for wide local excision of the vulva with a right Bartholin's gland excision. 3. Discussed the risks of surgery in detail including; bleeding, infection, damage to internal organs, risk of anesthesia including-clots, pneumonia, myocardial infarction, stroke and even . The patient understands the risks and elects to proceed. 4. Total time spent was 65 minutes: Preparing to see the patient (e.g., review of tests) Obtaining and/or reviewing separately obtained history Performing a medically appropriate examination and/or evaluation Counseling and educating the patient/family/caregiver Ordering medications, tests, or procedures Referring and communicating with other health home care provider (not separately reported) Documenting clinical information in the electronic or other health record Daniel Gold MD documented in this encounter [employer] 05-24-2024 History of Presen t illness Narrative Images from the original note were not included. Reason for Appointment: Patient ID: Lizzette Wakefield is a 53 y.o. female who presents for Well Women Visit and Bartholin's Cyst Patient presents today for Annual Exam. MEDICATIONS Current Outpatient Medications Medication Instructions citalopram (CeleXA) 20 MG tablet Every 24 hours omeprazole (PriLOSEC) [address] capsule TAKE ONE CAPSULE BY MOUTH TWICE A DAY 30 MINUTES BEFORE MEAL FOR 30 DAYS ALLERGIES No Known Allergies PROBLEMS Active Ambulatory Problems Diagnosis Date Noted No Active Ambulatory Problems Resolved Ambulatory Problems Diagnosis Date Noted No Resolved Ambulatory Problems Past Medical History: Diagnosis Date Asthma (CMS/HCC) Atypical nevi History of repair of ACL 2006 History of shoulder surgery HISTORY PAST MEDICAL HISTORY SOCIAL HISTORY Past Medical History: Diagnosis Date Asthma (CMS/HCC) Atypical nevi History of repair of ACL 2006 History of shoulder surgery Social History Tobacco Use Smoking status: Never Smokeless tobacco: Not on file Substance Use Topics Alcohol use: Never Comment: caffeine: 1-2 cups/day Drug use: Not on file FAMILY HISTORY Family History Problem Relation Name Age of Onset Ovarian cancer Mother Arthritis Father SURGICAL HISTORY Past Surgical History: Procedure Laterality Date APPENDECTOMY GALLBLADDER KNEE SURGERY Left SHOULDER SURGERY Left x6 REVIEW OF SYSTEMS Review of Systems: Review of Systems Constitutional: Negative. HENT: Negative. Eyes: Negative. Respiratory: Negative. Cardiovascular: Negative. Gastrointestinal: Negative. Genitourinary: Negative. Musculoskeletal: Negative. Skin: Negative. Neurological: Negative. All other systems reviewed and are negative. Hematological: Negative. Endocrine: Negative. Allergic/Immunologic: Negative. OBJECTIVE Objective: Physical Exam Constitutional: Appearance: Normal appearance. She is well-developed. Genitourinary: Vulva normal. Genitourinary Comments: Right bartholin cyst chronic Right Labia: tenderness and Bartholin's cyst. Vulva exam comments: Chronic bartholin cyst, mild tenderness. Right Adnexa: not tender and no mass present. Left Adnexa: not tender and no mass present. No cervical discharge. Breasts: Breasts are soft. Right: Normal. Left: Normal. HENT: Head: Normocephalic. Nose: Nose normal. Mouth/Throat: Mouth: Mucous membranes are moist. Cardiovascular: Rate and Rhythm: Normal rate and regular rhythm. Pulmonary: Effort: Pulmonary effort is normal. Breath sounds: Normal breath sounds. Abdominal: General: Bowel sounds are normal. There is no distension. Palpations: Abdomen is soft. Tenderness: There is no abdominal tenderness. There is no guarding or rebound. Musculoskeletal: General: No swelling. Normal range of motion. Cervical back: Normal range of motion. Right lower leg: No edema. Left lower leg: No edema. Neurological: General: No focal deficit present. Mental Status: She is alert and oriented to person, place, and time. Skin: General: Skin is warm and dry. Psychiatric: Mood and Affect: Mood normal. Behavior: Behavior normal. Vitals and nursing note reviewed. Exam conducted with a usability architect present. Vitals: Estimated body mass index is 29.05 kg/m as calculated from the following: Height as of 11/17/22: 5' 3 . Weight as of this encounter: 164 lb. BP: 120/76 No LMP recorded. ASSESSMENT & PLAN ICD-10-CM 1. Well woman exam with routine gynecological exam Z01.419 THIN PREP TIS PAP AND HR HPV DNA 2. Bartholin's gland cyst N75.0 3. Encounter for screening mammogram for malignant neoplasm of breast Z12.31 Bilateral screening mammogram Bilateral screening mammogram Annual Exam: Patient presents today for an annual exam. Patient states she is doing well .Pap was obtained without difficulty. Patient would like referral for bladder sling for incontinence with coughing and sneezing. Will start antibiotic for recurrent barthollin cyst. Patient will be placed on bactrim and keflex, we will send referral to Dr Gold for bladder sling and right bartholin cyst removal. Patient aware of referral and agrees with plan of care Orders Placed This Encounter Procedures Bilateral screening mammogram Follow Up: Patient is to return in one year for annual unless needed otherwise. Documented by Arleth Garcia MA on behalf of: MAHSA Navarro documented in this encounter [facility] 12-29-2023 Hospital Discharg e instructions Patient Education [...] sitting or lying down. General instructions Take yphy-xys-oquuqub and prescription medicines only as told by [...] provider. Document Revised: 09/22/2022 Document Reviewed: 09/22/2022 [employer] Patient Education 2023 [employer]. Follow Up Care 12/29/2023 20:01:29 With:GERALD TAVARES Address: [facility] [employer] [place] [id number] Business (1) When:Within 3 Day(s) [facility] 12-29-2023 Note ED Patient Education Note Orthopedics [...] or lying down. General instructions ? Take [id number]-eahbbbw and prescription medicines only as told by [...] provider. Document Revised: 09/22/2022 Document Reviewed: 09/22/2022 [employer] Patient Education ? 2023 [employer]. [facility] 12-29-2023 Evaluation + Plan note Extrac maggie from: Title:ED Note Author:Manav Fisher DO Date :12/29/23 Contusion of knee (S80.00XA: Contusion of unspecified knee, initial encounter) Orders: XR Knee Complete 4+ Views Right Future Scheduled Tests Laboratory* Magnesium Level 08/04/23 * Vitamin B12 Level 08/04/23 [facility] 09-04-2024 History of Present illness Narrative* Yumiko [...] Dr. Ben De Leon. Transcribed by Yumiko dill, DIANE-IV 1. Puncture wound of right foot, initial encounter Dx and tx reviewed with patient. Tetanus updated. Due to superficial nature of the wound will require no further treatment. If any signs of infection RTC for recheck. [id number] Instructions* Patient Instructions* Yumiko Ríos RN - 12/23/2023 9:30 AM EDT See progress note [facility] [id number] Hospital Discharge instructions Patient Education 08/04/2023 14:48:11 [...] drinks. ?Tomatoes and foods made with tomatoes. ?[place] or spicy foods. ?Chocolate and peppermint. Do not drink alcohol. General instructions Take wcef-phb-jrbfvve and prescription medicines only as told by [...] provider. Document Revised: 06/23/2020 Document Reviewed: 06/23/2020 [employer] Patient Education 2022 [employer]. Follow Up Care 07/22/2023 13:53:31 With:Anna Hassan CNP Address: When:[address] [facility] 04-16-2024 Evaluation + Plan note Future Scheduled Tests Laboratory* Magnesium Level 08/04/23 * Vitamin B12 Level 08/04/23 [facility] 01-30-2024 Hospital Discharge instructions Patient [...] Follow these instructions at home: Medicines Take gqjy-wig-glrgrgq and prescription medicines only as told by [...] powder, vinegar, hot sauces, and barbecue sauce. ?[place] fruit juices and citrus fruits, such as oranges, zaynab, and limes. ?Tomato-based foods, such as red sauce, chili, salsa, and pizza with red sauce. ?Fried and fatty foods, such as donuts, greek fries, potato chips, and high-fat dressings. ?High-fat [...] Document Reviewed: 10/15/2020 Elsevier Patient Education 2022 Close.[email or web address]. Follow Up Care 05/18/2023 11:08:33 With:Anna Hassan CNP Address: When:[address] [facility] 11-01-2023 Evaluation note* Encounter Date [...] otitis media with effusion (ICD-10 - H65.93) [place] Other 09-02-2023 Evaluation note* Encounter Date Diagnosis [...] dermati tis home care material was printed [place] Other 07-31-2023 Hospital Discharge instructions Patient Education [...] treated at home. Treatment may include: Taking ecwb-uxo-oyrupdp pain medicines. Following a clear liquid diet. [...] Follow these instructions at home: Medicines Take mmgx-umr-vbrvybh and prescription medicines only as told by [...] provider. Document Revised: 01/16/2020 Document Reviewed: 01/16/2020 [employer]anc[employer] Patient Education 2022 ReCellular Follow Up Care 10/15/2022 08:09:26 With:Anna Hassan CNP Address: When:[address] [facility] 07-31-2023 Evaluation + Plan note Future Scheduled Tests Radiology* CT Abdomen/Pelvis w/ Contrast 11/17/22 [facility] 02-10-2023 NotePROCEDURE: XR ANKLE RT [...] Electronically authenticated by: LIZBETH TANG Date: 2022-05-30 13:52[facility]02-10-2023 NotePROCEDURE: XR ANKLE RT MIN 3 [...] Electronically authenticated by: LIZBETH TANG Date: 2022-05-30 13:52[facility]04-08-2022 Evaluation note* Encounter Date Diagnosis Assessment [...] - G89.29) Continue with current treatment plan. [place] Other evaluation + Plan note No data available for this section [facility] evaluation + Plan note Future Appointments Appointment Date:09/07/2023 03:15:00 PM Scheduled Provider:Elina Boyer MD [place] Type[facility] Follow Up Future Scheduled Tests Laboratory* Magnesium Level 08/04/23 * Vitamin B12 Level 08/04/23 [facility] evaluation noteNo InformationNort Sian's Plan Other evaluation note* Diagnosis Onset Date Resolution Status Contact dermatitis [facility] Work Phone: evaluation note* Diagnosis Puncture wound of right foot, initial encounter- Primary documented in this encounter [facility]* Diagnosis Well woman exam with routine gynecological exam Routine gynecological examination Bartholin's gland cyst Cyst of Bartholin's gland Encounter for screening mammogram for malignant neoplasm of breast Yeast infection documented [facility] this encounter [facility] Diagnosis Bartholin cyst- Primary Cyst of Bartholin's gland [facility] Diagnosis Bartholin cyst- Primary Cyst of Bartholin's gland Preop testing Unspecified pre-operative examination Abscess of Bartholin gland [facility] Diagnosis Bartholin cyst Cyst of Bartholin's gland Preop testing Unspecified pre-operative examination Abscess of Bartholin gland [facility]* Diagnosis Sensorineural hearing loss, bilateral- Primary Right-sided tinnitus Unspecified tinnitus documented in this encounter [facility]* Diagnosis Sensorineural hearing loss (SNHL) of right ear, unspecified hearing status on contralateral side- Primary Pulsatile tinnitus Tinnitus, unspecified laterality documented in this encounter [facility] Healthcare[facility]* Diagnosis Encounter for postoperative care- Primary Post-op pain Other acute postoperative pain [facility] Diagnosis Encounter for postoperative care- Primary Dyspareunia, female documented [facility]* Diagnosis Family history of aneurysm- Primary Family history of other condition Pulsatile tinnitus Sensorineural hearing loss (SNHL) of right ear, unspecified hearing status on contralateral side documented in this encounter [facility] HealthcareHistory general Narrative - Reported* Type Description Date Medical History Left rotator cuff Medical History Asthma Medical History GERD Surgical History 6 left shoulder surgeries Surgical History Left rotator cuff, x5 Surgical History Left knee Surgical History Left knee, torn ACL and meniscu s Surgical History Gallbladder Surgical History Lap Cholecystectomy Surgical History nerve block Hospitalization History See Above [place] Other Hospital Discharge instructions No data available for this section [facility] InstructionsNot on filedocumented in this encounter [facility] this [facility] filedocumented in this encounter [facility] on filedocumented in this encounter [facility] filedocumented in this encounter [facility] No data available for this section [facility] Summary Purpose Family History No Family History Records Found Relationship Condition Age at Onset Recorded Date/T lilibeth father Cerebral aneurysm Unknown mother Malignant neoplasm of ovary Unknown father Heart disease Unknown Cerebral aneurysm Unknown mother Unknown Malignant neoplasm Unknown History of ovarian cancer Unknown Advance Directives No Advanced Directives Records Found Advance Directive Response Recorded Date/ Time Advance Directives No May 18, 2018 4:50pm Chief Complaint and Reason for Visit Chief Complaint poison linda Reason for Visit Contact dermatitis Additional Source Comments INFORMATION SOURCE (unrecogn ized section and content) DATE CREATED AUTHOR 03/22/2018 [facility] DATE CREATED AUTHOR AUTHOR'S ORGANIZ ATION 03/27/2018 [facility] DATE CREATED AUTHOR AUTHOR'S ORGANIZ ATION 03/27/2018 [facility] DATE CREATED AUTHOR AUTHOR'S ORGANIZ ATION 03/07/2019 [facility] DATE CREATED AUTHOR AUTHOR'S ORGANIZ ATION 07/30/2021 [facility] DATE CREATED AUTHOR AUTHOR'S ORGANIZ ATION 06/05/2022 [facility] DATE CREATED AUTHOR AUTHOR'S ORGANIZ ATION 06/13/2024 [facility] DATE CREATED AUTHOR AUTHOR'S ORGANIZ ATION 07/03/2024 [facility] DATE CREATED AUTHOR AUTHOR'S ORGANIZ ATION 07/10/2024 [facility] DATE CREATED AUTHOR AUTHOR'S ORGANIZ ATION 07/14/2024 [facility] DATE CREATED AUTHOR AUTHOR'S ORGANIZ ATION 08/18/2024 [facility] Special[facility] EPIC REASON FOR VISIT (unrecogniz ed section and content) Reason Comments Tinnitus Echo results Reason Comments Follow-up Reason Onset Date Comments Post-op Problem 06/25/2024 Reason Comments Tinnitus New Patient : tinnit us - Pulse and loud ringing Reason Comments New Patient Reason Comments Well Women Visit Bartholin's Cyst SORE THROAT, EARACHE CONGESTIONRASH UNDER ARMS AND DOWN SIDESISABEL SI JOINT [...] November 16, 2023 End: November 16, 2023 Quality Measurement Specialist Relationship Specialty Start Date End Date Unallocated, [place] [address] PCP - General Family Medicine 06/19/23 Quality Measurement Specialist Relationship Specialty Start Date End Date Unallocated, MD Marleen Elliott [facility] [place] [address] PCP - General Family Medicine 06/19/23 Quality Measurement Specialist Relationship Specialty Start Date End Date Unallocated, Holly Watt MD [facility] [place] [address] PCP - General Family Medicine 06/19/23 Quality Measurement Specialist Relationship Specialty Start Date End Date Unallocated, Holly Watt MD [address] [place], [place] [address] [address] PCP - General Family Medicine 06/19/23 Quality Measurement Specialist Relationship Specialty Start Date End Date Gerald Tavares DO [address] [place] [address] PCP - General Family Medicine 09/26/21 Quality Measurement Specialist Relationship Specialty Start Date End Date Gerald Tavares DO [address] [place] [address] PCP - General Family Medicine 09/26/21 Quality Measurement Specialist Relationship Specialty Start Date End Date Gerald Tavares DO [address] [place] [id number] PCP - General Family Medicine 09/26/21 Quality Measurement Specialist Relationship Specialty Start Date End Date Unallocated, Holly Watt MD [facility] [place] [address] PCP - General Family Medicine 06/19/23 Quality Measurement Specialist Relationship Specialty Start Date End Date Unallocated, Holly Watt MD [address] [place], [place] [address] [address] PCP - General Family Medicine 06/19/23 Quality Measurement Specialist Relationship Specialty Start Date End Date Unallocated, Holly Watt MD [facility] [place] [address] PCP - General Family Medicine 06/19/23 Quality Measurement Specialist Relationship Specialty Start Date End Date Unallocated, Holly Watt MD [address] [place] [id number] PCP - General Family Medicine 06/19/23 Quality Measurement Specialist Relationship Specialty Start Date End Date Gerald Tavares DO [address] [place] [id number] PCP - General Family Medicine 09/26/21 Quality Measurement Specialist Relationship Specialty Start Date End Date Gerald Tavares DO [address] [place] [id number] PCP - General Family Medicine 09/26/21 Quality Measurement Specialist Relationship Specialty Start Date End Date Unallocated, Holly Watt MD [address] [place] [address] PCP - General Family Medicine 06/19/23 Gerald Tavares MD [address] [place] [id number] Referring Physician Family Medicine 08/16/24 Ubaldo Kaiser DO [address] [facility] [address] Otolaryngology 08/16/24 Quality Measurement Specialist Relationship Specialty Start Date End Date Unallocated, Holly Watt MD [address] [place] [id number] PCP - General Family Medicine 06/19/23 Gerald Tavares MD [address] [place] [id number] Referring Physician Family Medicine 08/16/24 Ubaldo Kaiser DO [address] [place] [address] Otolaryngology 08/16/24 Goals (unrecognized section and content) Goals may [...] BE BASED ON THE PRIMARY CLINICAL RECORDS. [employer] [facility]. provides no warranty or guarantee of the accuracy or completeness of information in this document.
--- NOTE | 2024-08-29 00:25 | ECG_ITS ---
[facility] Test Date: 2024-08-29 Pat Name: COLIN MACIAS Department: Room: - Gender: Female [employer]: : 1970 Requested By: [id number] Order Number: [id number] Reading MD: ELMER ALICIA M.D. Measurements Intervals [place] Rate: 58 P: 61 OR: 174 QRS: 41 QRSD: 80 T: 65 QT: 418 QTc: 415 Interpretive Statements 1100 Sinus rhythm 9110 normal ECG No previous ECG available for comparison Electronically Signed On 08-29-2024 6:59:58 EDT by ELMER ALICIA M.D.
--- NOTE | 2024-08-29 00:40 | PC.NURSE ---
this patient complains of chest pain that radiates to her back between her shoulder blades, onset 2 hours prior to arrival to ER dept, this patient was sleeping whne this chest pain started. this patient denies shortness of breath and no diaphoresis with this chest pain. this patient voices no other complaints and shows no signs of distress
--- NOTE | 2024-08-29 00:48 | ED.CHESTPAI1 ---
HPI - Chest Pain General Chief Complaint: Chest Pain Stated Complaint: CHEST PAIN Time Seen by Provider: 08/29/24 00:18 Source: patient Mode of arrival: walk-in Limitations: no limitations History of Present Illness HPI narrative: This 53-year-old female presents for evaluation of midsternal chest pain. She has points to the lower sternal area as area of greatest pain. She has a history of Ellison's esophagus. She does admit that she ate a lot of food during the day yesterday for Mother's Day. There is no radiation of her pain into her arm or jaw but she does state that it goes into her back. She denies any associated dizziness or diaphoresis. She is not having any abdominal pain. She denies a history of cardiac disease. She did recently have a cardiac echo performed because she states that she can hear her pulse in her right ear. She was seen by ENT and that echocardiogram was ordered that was normal. She does not have a history of diabetes or hypertension. She does not have a history of any cardiac disease. She does not smoke. She has no lower extremity pain or swelling. She states she has recently been constipated and has been using some stool softeners. Related Data Home Medications ?Medication ?Instructions ?Recorded ?Confirmed albuterol sulfate 90 mcg/actuation 1 puff inhalation Q4H PRN 10/08/22 10/08/22 aerosol inhaler shortness of breath or wheezing omeprazole 20 mg capsule,delayed 20 mg PO BID 10/08/22 08/29/24 release Previous Rx's ?Medication ?Instructions ?Recorded ciprofloxacin HCl 500 mg tablet 500 mg PO Q12H #20 tabs 10/08/22 dicyclomine 20 mg tablet 20 mg PO QID PRN abdominal pain 10/08/22 #12 tabs metronidazole 500 mg tablet 500 mg PO BID 10 days #20 tabs 10/08/22 ondansetron 4 mg disintegrating 4 mg PO Q6H PRN nausea and 10/08/22 tablet vomiting #12 tabs oxycodone-acetaminophen 5 mg-325 1 tab PO Q6H PRN pain #10 tabs 10/08/22 mg tablet (Percocet) sucralfate 1 gram tablet (Carafate) 1 g PO QID 3 weeks #84 tabs 10/15/22 Allergies Allergy/AdvReac Type Severity Reaction Status Date / Time No Known Drug Allergies Allergy Verified 08/29/24 00:34 Review of Systems ROS Status of ROS 10 or more systems reviewed and unremarkable except as noted in history and below [facility] Social History Smoking status: Former smoker Little interest or pleasure in doing things: not at all Feeling down, depressed, or hopeless: not at all Exam Narrative Exam Narrative: Vital signs and Nursing Notes reviewed: Patient is afebrile with a normal pulse, blood pressure is elevated 151/78, she is not hypoxic with pulse ox of 97% on room air General: Awake, alert, oriented, mildly uncomfortable rubbing her mid chest, no respiratory distress HEENT: Normocephalic atraumatic, mucous membranes are moist and pink, eyes are clear, normal conjunctiva, vision is grossly intact Neck: Supple, no meningeal signs Chest: Lungs are clear to auscultation with good air entry, there is no wheezing rhonchi or rales appreciated no accessory muscle use, patient is speaking in complete sentences-mild chest wall tenderness to palpation CVS: Regular rate and rhythm S1-S2, no murmurs rubs or gallops, pulses are brisk and equal bilaterally ABD: Soft, nondistended, nontender, no rebound guarding or rigidity, bowel sounds are normal, no pulsatile masses appreciated Extremities: Moving all extremities, no lower extremity tenderness or swelling noted Skin: Normal in appearance without rash,pallor, petechiae or purpura Neuro: No focal deficits Constitutional Vital Signs, click to edit/add: Last Vital Signs Temp 98.4 F 08/29/24 00:35 Pulse 63 08/29/24 02:20 Resp 12 08/29/24 02:20 BP 114/69 08/29/24 02:00 Pulse Ox 95 08/29/24 02:20 O2 Del Method Room Air 08/29/24 00:35 Course Vital Signs Vital signs: Vital Signs Pulse Oximetry 98 08/29/24 00:19 Temperature 98.4 F 08/29/24 00:35 Pulse Rate 63 08/29/24 02:20 Respiratory Rate 12 08/29/24 02:20 Blood Pressure 114/69 08/29/24 02:00 Pulse Oximetry 95 08/29/24 02:20 Oxygen Delivery Method Room Air 08/29/24 00:35 MDM - Chest Pain MDM Narrative Medical decision making narrative: This 53-year-old female, non-smoker with a history of Ellison's esophagus presents for evaluation of midsternal chest pain. She points to the lower aspect of her sternum as area of greatest pain. She has not had any nausea or vomiting. She does admit to eating a lot during the day yesterday as it was Mother's Day. She does not have any shortness of breath dizziness or diaphoresis. She has no lower extremity pain or swelling. EKG done upon arrival is a sinus rhythm at 58 bpm with no acute findings. An IV was placed and she was medicated with 324 mg baby aspirin, IV Pepcid and a GI cocktail. On reevaluation her symptoms have resolved. I did order a dose of Toradol for her as well. She has a normal white count and hemoglobin. Electrolytes liver function tests lipase, troponin and D-dimer are all normal. 1 view chest ray was reviewed by myself and does not show any acute pulmonary infiltrate with normal cardiac borders and normal mediastinum. Delta troponin is normal. Patient has not had any additional pain since she received the GI medications. I suspect that her pain is more related to her GI issues such as Ellison's esophagus than cardiac in nature. She does take Nexium every day. She was encouraged return the emergency department for worsening symptoms or any concerns and follow-up closely with her family physician. Additionally I suggested that she eat small meals to help with her reflux. Lab Data Labs: Lab Results 08/29/24 08/29/24 Range/Units 00:25 02:20 WBC 6.5 (4.0-11.0) 10^3/uL RBC 4.49 (4.20-5.40) 10^6/uL Hgb 14.3 (12.0-16.0) g/dL Hct 39.5 (36.0-48.0) % MCV 88.0 (81.0-99.0) fL MCH 31.8 (26.7-34.0) pg MCHC 36.2 H (29.9-35.2) g/dL RDW 12.0 (11.0-15.0) % Plt Count 278 (150-450) 10^3/uL MPV 9.4 L (9.5-13.5) fL Neut % (Auto) 37.2 L (43.0-75.0) % Lymph % (Auto) 48.5 (20.5-60.0) % [place] % (Auto) 7.6 (1.7-12.0) % Eos % (Auto) 5.6 (0.9-7.0) % Baso % (Auto) 0.9 (0.2-2.0) % Neut # (Auto) 2.4 (1.4-6.5) 10^3/uL Lymph # (Auto) 3.1 (1.2-3.8) 10^3/uL [place] # (Auto) 0.5 (0.3-0.8) 10^3/uL Eos # (Auto) 0.4 (0.0-0.7) 10^3/uL Baso # (Auto) 0.1 (0.0-0.1) 10^3/uL Abs Immat Gran (auto) 0.01 (0.00-0.03) 10^3/uL Imm/Tot Granulo (auto) 0.2 (0.0-0.5) % D-Dimer <0.19 (<=0.59) mg/L FEU Sodium 140 (136-145) mmol/L Potassium 3.4 L (3.5-5.1) mmol/L Chloride 104 (98-107) mmol/L Carbon Dioxide 28.6 (21.0-32.0) mmol/L Anion Gap 10.8 BUN 15.0 (7.0-18.0) mg/dL Creatinine 0.89 (0.55-1.02) mg/dL Est GFR ( Amer) >60 (>=60 mL/min/1.73m^2) Est GFR (Non-Af Amer) >60 (>=60 mL/min/1.73m^2) BUN/Creatinine Ratio 16.9 Glucose 117 H (74-106) mg/dL Calcium 8.2 L (8.5-10.1) mg/dL Total Bilirubin 0.6 (0.2-1.0) mg/dL AST 27 (15-37) U/L ALT 36 (14-59) U/L Alkaline Phosphatase 70 (46-116) U/L Troponin I High Sens 4.9 5.0 (4.0-51.3) pg/mL Total Protein 6.7 (6.4-8.2) g/dL Albumin 3.5 (3.4-5.0) g/dL Globulin 3.2 g/dL Albumin/Globulin Ratio 1.1 ECG Data Attestation: I personally reviewed and interpreted this ECG as follows: (Sinus rhythm at 58 bpm, normal axis, normal intervals, no acute ST segment elevation or T wave inversion) Heart Score History: Slightly/Non-Suspicious ECG: Normal Age: >45-<65 years Risk Factors: No Risk Factors Troponin: <Normal Limit Total Heart Score Recommendations & Risks:: 1 Discharge Plan Discharge Chief Complaint: Chest Pain Clinical Impression: Atypical chest pain, Chest pain due to GERD Patient Disposition: Home, Self-Care Time of Disposition Decision: 02:53 Condition: Good Prescriptions / Home Meds: No Action sucralfate [Carafate] 1 gram tablet 1 g PO QID 21 Days Qty: 84 0RF Rx Instructions: take before meals and at bedtime albuterol sulfate 90 mcg/actuation HFA aerosol inhaler 1 puff INHALATION Q4H PRN (Reason: shortness of breath or wheezing) omeprazole 20 mg capsule,delayed release(DR/EC) 20 mg PO BID ciprofloxacin HCl 500 mg tablet 500 mg PO Q12H Qty: 20 0RF metronidazole 500 mg tablet 500 mg PO BID 10 Days Qty: 20 0RF oxycodone-acetaminophen [Percocet] 5-325 mg tablet 1 tab PO Q6H PRN (Reason: pain) Qty: 10 0RF dicyclomine 20 mg tablet 20 mg PO QID PRN (Reason: abdominal pain) Qty: 12 0RF ondansetron 4 mg tablet,disintegrating 4 mg PO Q6H PRN (Reason: nausea and vomiting) Qty: 12 0RF Print Language: Maori Instructions: Diet for Stomach Ulcers and Gastritis (ED), GERD (Gastroesophageal Reflux Disease) (ED), Noncardiac Chest Pain (ED) Referrals: ORACIO SINGH DO [Primary Care Provider, Family Practice] - 1 week
[2024-08-29 00:54] LABS: Basophils Absolute Auto 0.1 10^3/uL (0.0-0.1); Basophils Percent Auto 0.9 % (0.2-2.0); Eosinophils Absolute Auto 0.4 10^3/uL (0.0-0.7); Eosinophils Percent Auto 5.6 % (0.9-7.0); Hematocrit 39.5 % (36.0-48.0); Hemoglobin 14.3 g/dL (12.0-16.0); Immature Granulocytes Abs Auto 0.01 10^3/uL (0.00-0.03); Immature Granulocytes Pct Auto 0.2 % (0.0-0.5); Lymphocytes Absolute Auto 3.1 10^3/uL (1.2-3.8); Lymphocytes Percent Auto 48.5 % (20.5-60.0); Mean Corpuscular HGB Conc 36.2 g/dL (29.9-35.2); Mean Corpuscular Hemoglobin 31.8 pg (26.7-34.0); Mean Platelet Volume 9.4 fL (9.5-13.5); Monocytes Absolute Auto 0.5 10^3/uL (0.3-0.8); Monocytes Percent Auto 7.6 % (1.7-12.0); Neutrophils Absolute Auto 2.4 10^3/uL (1.4-6.5); Neutrophils Percent Auto 37.2 % (43.0-75.0); Platelet Count 278 10^3/uL (150-450); Red Blood Count 4.49 10^6/uL (4.20-5.40); White Blood Count 6.5 10^3/uL (4.0-11.0)
[2024-08-29 01:03] LABS: D Dimer <0.19 mg/L FEU (<=0.59)
[2024-08-29] MEDS: ASPIRIN 81 MG TAB.CHEW 324 MG PO (01:06)
[2024-08-29] MEDS: lidocaine HCL 15 ML, MAG HYDROX/ALUMINUM HYD/SIMETH 30 ML, HYOSCYAMINE SULFATE 0.25 MG PO (01:07)
[2024-08-29] MEDS: FAMOTIDINE/PF 20 MG/2 ML VIAL IV (01:09)
[2024-08-29 01:12] LABS: Alanine Aminotransferase 36 U/L (14-59); Albumin Globulin Ratio 1.1; Albumin Level 3.5 g/dL (3.4-5.0); Alkaline Phosphatase 70 U/L (46-116); Anion Gap 10.8; Aspartate Amino Transferase 27 U/L (15-37); BUN Creatinine Ratio 16.9; Bilirubin Total 0.6 mg/dL (0.2-1.0); Calcium 8.2 mg/dL (8.5-10.1); Carbon Dioxide 28.6 mmol/L (21.0-32.0); Chloride 104 mmol/L (98-107); Estimated GFR (African America >60 (>=60 mL/min/1.73m^2); Estimated GFR (Non-African Ame >60 (>=60 mL/min/1.73m^2); Globulin 3.2 g/dL; Glucose 117 mg/dL (74-106); Potassium 3.4 mmol/L (3.5-5.1); Sodium 140 mmol/L (136-145); Total Protein 6.7 g/dL (6.4-8.2); Troponin I High Sensitivity 4.9 pg/mL (4.0-51.3)
[2024-08-29] MEDS: KETOROLAC TROMETHAMINE 30 MG/ML VIAL IVP (01:30)
[2024-08-29] MEDS: ONDANSETRON PF 4 MG/2 ML VIAL IV (02:31)
--- NOTE | 2024-08-29 03:05 | PC.NURSE ---
i gave this patient verbal nd written discharge papers along with 1 work note and this patient voices yes to understanding these discharge papers. at time of discharge this patient voices no concerns and shows no signs of distress
== END 2024-08-29 03:05 | disposition home or self-care (01) ==
PROVIDERS: Emergency Provider Emergency Medicine; PCP Family Medicine
DX: R07.89 Other chest pain (principal); K21.9 Gastro-esophageal reflux disease without esophagitis; K22.70 Barrett's esophagus without dysplasia
CPT/HCPCS: 36415; 71045; 80053; 84484; 85025; 85378; 93005; 96374; 96375; 99285; J1885; J2405; J3490

== ENCOUNTER 2024-09-22 09:42 | Outpatient (OUT) | payer BC, SELFPAY ==
--- OUTSIDE RECORDS SUMMARY | 2024-05-20 04:45 | XMS_ITS ---
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 Name Role Phone Gerald Tavares Primary Care Provider [phone] Allergies No Known Allergies REASON FOR VISIT [phone] Medications Medication SIG (Take, Route, Frequency, Duration) Notes Start Date End Date Status Methocarbamol 750 MG 1 tablet Orally bid prn neck pain for 30 days 06/04/2022 Unknown Fiber Unknown Citalopram Hydrobromide 40 mg 1 tablet Orally Once a day for 90 days Unknown traMADol HCl 50 MG 1 tablet as needed Orally tid for 7 days 09/04/2022 Unknown Ondansetron HCl 4 MG 1 tablet Orally bid prn N/V for 30 days 09/04/2022 Unknown Celecoxib 200 MG 1 capsule with food Orally Once a day for 30 days 09/03/2022 Unknown Calcium Unknown B Complex Unknown tiZANidine HCl 4 MG 1 tablet Orally qhs for 30 days 02/04/2024 Unknown NexIUM 40 MG 1 capsule Orally daily Unknown Esomeprazole Magnesium 40 MG 1 tablet Orally daily for 90 days 02/04/2024 Active Citalopram Hydrobromide 20 MG 1 tablet Orally Once a day for 90 days 11/19/2022 Active Famotidine 20 MG 1 tablet at bedtime as needed Orally Once a day 09/24/2023 Unknown Ondansetron HCl 4 MG 1 tablet Orally tid prn N/V for 30 days 02/04/2024 Active HYDROcodone-Acetaminophen 5-325 MG 1 tablet as needed Orally tid for 7 days 04/18/2024 Active Albuterol Sulfate HFA 108 (90 Base) MCG/ACT 2 puffs as needed Inhalation every 4 hrs 07/16/2022 Active Vital Signs Height 63 in 05/20/2024 Weight 164 lbs 05/20/2024 BMI 29.05 kg/m2 05/20/2024 Encounters Encounter Location Date Provider Diagnosis [facility] [address] [place] [address] 05/20/2024 Gerald Tavares Abnormal weight gain R63.5 ; Overweight E66.3 and Body mass index [BMI] 29.0-29.9, adult Z68.29 Assessments Encounter Date Diagnosis (ICD Code) Assessment Notes Treatment Notes Treatment Clinical Notes Section Notes 05/20/2024 Abnormal weight gain (ICD-10 - R63.5) diet/exercise rtc 1 month we will send in semiglutide to [facility] in [place] 05/20/2024 Overweight (ICD-10 - E66.3) diet/exercise 05/20/2024 Body mass index [BMI] 29.0-29.9, adult (ICD-10 - Z68.29) Plan Of Treatment Treatment Notes Assessment Notes Abnormal weight gain diet/exercise rtc 1 month we will send in semiglutide to [facility] in [place] Overweight diet/exercise Next Appt Details Provider Name:Gerald loco, 09/26/2024 01:15:00 PM, [address] [place], [address], Progress Notes * Lizzette MACIASDOB:1970 (53 yo F)Acc No.[id number]:05/20/2024 TeleMed via [employer] Patient: Lizzette VOGT Provider: Sushma Tavares DO :1970 A ge:53 Y S ex:Female Date:05/20/2024 Address:[address] [place], [place] [id number] Check Out:09:45 AM EST Subjective: * Chief Complaints: * S emiglutide-[id number] * HPI: G eneral: pt was on semiglutide in past from [facility] wants to restart it working on losing weight +fatigue working on cutting down on calories and being more active no f/c/URI s/s no cough no CP/SOB/dizzy/palp no N/V/D/C/blood +chronic joint pains on/off pt laid off at the moment - - - - - - - - - - The patient verbally consented to a TeleHealth encounter and the potential risks involved with a TeleHealth visit (clinical aspects, security considerations, and confidentiality of information) were discussed with the patient. The patient encounter was conducted using a synchronous audio-visual interactive audio and video telecommunications system called: [email or web address] Patient is attending the TeleHealth encounter from home. Patient was the only one present in the room The provider is attending the TeleHealth encounter from their office. Total Time spent during the encounter: 7 min. * Active Problem List G89.29 Other chronic pain Modified On:06/04/2022U Status:confirmed F32.5 Major depressive dis order with single episode, in full remission Modified On:05/17/2023U Status:confirmed K21.9 Gastroesophageal ref lux disease without esophagitis Modified On:05/17/2023U Status:confirmed M47.816 Spondylosis without myelopathy or radiculopathy, lumbar region Modified On:06/18/2023U Status:confirmed R20.2 Paresthesia of skin Modified On:09/04/2022U Status:confirmed K57.92 Diverticulitis of in testine, part unspecified, without perforation or abscess without bleeding Modified On:11/19/2022U Status:confirmed Z86.010 Personal history of colonic polyps Modified On:06/18/2023U Status:confirmed H93.11 Tinnitus, right ear Modified On:06/18/2023U Status:confirmed K21.00 Gastro-esophageal re flux disease with esophagitis, without bleeding Modified On:06/18/2023U Status:confirmed K57.30 Diverticulosis of la rge intestine without perforation or abscess without bleeding Modified On:06/18/2023U Status:confirmed M50.30 Other cervical disc degeneration, unspecified cervical region Modified On:06/06/2024W/U Status:confirmed E66.3 Overweight Modified On:04/21/2024W/U Status:confirmed J45.20 Mild intermittent as thma, uncomplicated Modified On:04/21/2024W/U Status:confirmed F51.01 Primary insomnia Modified On:04/21/2024/U Status:confirmed * Medical History: * Surgical History: L knee scope L shoulder surgery x 6 ryanne - 2011 EGD - 2019 +esophagitis colonoscopy - 2019 +polyp EGD - 05/12/23 +HH/esophagitis/?barretts colonoscopy - 05/12/2023 +3 polyps, int/ext hem, +diverticulosis * Hospitalization/Major Diagno stic Procedure: * Family History: M other: . F ather: diagnosed with Unspecified heart disease. * Social History: H ousehold: H ousehold M arital status: m arried * Medications: T akingAlbuterol Sulfate HFA 108 (90 Base) MCG/ACT Aerosol Solution 2 puffs as needed Inhalation every 4 hrs Citalopram Hydrobromide 20 MG Tablet 1 tablet Orally Once a day Esomeprazole Magnesium 40 MG Capsule Delayed Release 1 tablet Orally daily HYDROcodone-Acetaminophen 5-325 MG Tablet 1 tablet as needed Orally tid Ondansetron HCl 4 MG Tablet 1 tablet Orally tid prn N/V Taking Albuterol Sulfate HFA 108 (90 Base) MCG/ACT Aerosol Solution 2 puffs as needed Inhalation every 4 hrs Taking Citalopram Hydrobromide 20 MG Tablet 1 tablet Orally Once a day Taking Esomeprazole Magnesium 40 MG Capsule Delayed Release 1 tablet Orally daily Taking HYDROcodone-Acetaminophen 5-325 MG Tablet 1 tablet as needed Orally tid Taking Ondansetron HCl 4 MG Tablet 1 tablet Orally tid prn N/V UnknownB Complex Calcium Celecoxib 200 MG Capsule 1 capsule with food Orally Once a day Citalopram Hydrobromide 40 mg Tablet 1 tablet Orally Once a day Famotidine 20 MG Tablet 1 tablet at bedtime as needed Orally Once a day Fiber Methocarbamol 750 MG Tablet 1 tablet Orally bid prn neck pain NexIUM(Esomeprazole Magnesium) 40 MG Capsule Delayed Release 1 capsule Orally daily Ondansetron HCl 4 MG Tablet 1 tablet Orally bid prn N/V tiZANidine HCl 4 MG Tablet 1 tablet Orally qhs traMADol HCl 50 MG Tablet 1 tablet as needed Orally tid Unknown B Complex Unknown Calcium Unknown Celecoxib 200 MG Capsule 1 capsule with food Orally Once a day Unknown Citalopram Hydrobromide 40 mg Tablet 1 tablet Orally Once a day Unknown Famotidine 20 MG Tablet 1 tablet at bedtime as needed Orally Once a day Unknown Fiber Unknown Methocarbamol 750 MG Tablet 1 tablet Orally bid prn neck pain Unknown NexIUM(Esomeprazole Magnesium) 40 MG Capsule Delayed Release 1 capsule Orally daily Unknown Ondansetron HCl 4 MG Tablet 1 tablet Orally bid prn N/V Unknown tiZANidine HCl 4 MG Tablet 1 tablet Orally qhs Unknown traMADol HCl 50 MG Tablet 1 tablet as needed Orally tid * Allergies: N .K.D.A.no[Allergies Verified] Objective: * Vitals: W t:164lbs, Ht: 63 in, BMI:29.05Index, Ht-cm: 160.02 cm, Wt-k.39 kg. * Examination: G eneral Examination:: GENERAL APPEARANCE: well nourished, well developed, healthy Appearing. ENT: Normocephalic, Atraumatic,external ears normal by inspection. EYES: n o proptosis, normal sclera, conjunctiva not injected, no icteric. NECK: n o visible goiter, ROM appears wnl. MUSCULOSKELETAL: L arge joint ROM appears wnl, no obvious joint swelling or redness. VASCULAR: n o obvious edema, no evidence of stasis dermatitis. SKIN: n o visible rash, no foot ulcers. NEUROLOGIC: n o obvious tremor; no obvious extremity or facial weakness. PSYCH: n on-anxious, normal affect. Assessment: * Assessment: 1. A bnormal weight gain - R63.5 (Primary) 2 . O verweight - E66.3 ? 3 . B clint mass index [BMI] 29.0-29.9, adult - Z68.29 Plan: * Treatment: 2. O verweight Notes: diet/exercise * Procedure Codes: * * Sign off status: Completed Visit Status: C HK (Check Out) true * Provider: Sushma Tavares DO Date: 0 05/20/2024 Generated for Todd loco/Shakila/Fouzia on: 0 09/22/2024 09:47 AM EDT History and Physical Notes * Examination Category Sub-Category Detail Notes Category Not es General Examination: GENERAL APPEARANCE: well no urished, well developed, healthy Appearing ENT: Normocephalic , Atra umatic, external ears normal by inspection EYES: no proptosis, normal sclera, conjunctiva not injected, no icteric NECK: no visible goiter, R OM appears wnl NEUROLOGIC: no obvious tremor; n o obvious extremity or facial weakness SKIN: no visible rash, no foot ulcers MUSCULOSKELETAL: Large joint ROM appe ars wnl, no obvious joint swelling or redness PSYCH: non-anxious, normal affect VASCULAR: no obvious edema, no evidence of stasis dermatitis
--- OUTSIDE RECORDS SUMMARY | 2024-07-29 07:30 | XMS_ITS ---
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 Phone Tavares Gerald Primary Care Provider Allergies No Known Allergies REASON FOR VISIT sick, text link to [phone] Medications Medication SIG (Take, Route, Frequency, Duration) [...] Active Encounters Encounter Location Date Provider Diagnosis [facility] [address] [place] [address] 07/29/2024 Gerald Tavares Acute bronchitis, unspecified J20.9 [...] Name:Gerald loco, 09/26/2024 01:15:00 PM, [address] [place], [address], Progress Notes * Tiera MACIASDOB: 0 (53 yo F)Acc No.[id number]:07/29/2024 TeleMed via Doxy Patient: Love DUQUE Tiera Provider: Sushma Tavares DO :1970 A ge:53 Y S ex:Female Date:07/29/2024 Address:[address] [place], [place] [id number] Subjective: * Chief Complaints: * S ick, text link to [phone] * HPI: G eneral: +cough - phlegm no rhinorrhea no sinus TY no f/c no sore throat no ear pain mild SOB no wheeze +otc cold meds no rashes no V/D no c/o - - - - - - -- pt saw ENT for wooshing in ear they sent her for echo at [facility] - - - - - - - - - - - The patient verbally consented to a TeleHealth encounter and the potential risks involved with a TeleHealth visit (clinical aspects, security considerations, and confidentiality of information) were discussed with the patient. The patient encounter was conducted using a synchronous audio-visual interactive audio and video telecommunications system called: [email or web address] Patient is attending the TeleHealth encounter from [...] 07/29/2024 Generated for Todd loco/Shakila/Fouzia on: 0 09/22/2024 [...]
--- OUTSIDE RECORDS SUMMARY | 2024-09-22 09:47 | XMS_ITS | Patient Health Record ---
Author Organization [facility] in [place] Address [address] [place] [address] Care Team Providers Care Customer Service Operator Name Role Phone Gerald Tavares Primary Care Provider Allergies No Known Allergies Reason For Referral Reason eval and treat Diagnosis 1 Other cervical disc degeneration, unspecified cervical region (M50.30) Referral Organization [facility] Referring Provider First Name Gerald Referring Provider Last Name Chaitanya Referring Provider Speciality [facility] noel Referred Provider Specialty Physical The rapist Referral Priority Routine Reason tinitus Diagnosis 1 Tinnitus, right ear (H93.11) Referral Organization [facility] Referring Provider First Name Gerald Referring Provider Last Name Chaitanya Referring Provider [facility] noel Referred Provider Ubaldo Mendoza Referred Provider Specialty Otolaryngolo gy General Notes Gerald Tavares 10:16:28 AM >please call pt for appt Referral Priority Routine Medications Medication SIG (Take, Route, Frequency, Duration) Notes Start Date End Date Status Zithromax Z-Lon 250 MG as directed Orall y for 5 days 07/29/2024 Active NexIUM 40 MG 1 capsule Orally daily Unknown tiZANidine HCl 4 MG 1 tablet Orally qhs for 30 days 02/04/2024 Unknown B Complex Unknown Calcium Unknown Celecoxib 200 MG 1 capsule with food Orally Once a day for 30 days 09/03/2022 Unknown Albuterol Sulfate HFA 108 (90 Base) MCG/ACT 2 puffs as needed Inhalation every 4 hrs 07/16/2022 Active Citalopram Hydrobromide 40 mg 1 tablet Orally Once a day for 90 days Unknown Citalopram Hydrobromide 20 MG 1 tablet Orally Once a day for 90 days 11/19/2022 Active Fiber Unknown Esomeprazole Magnesium 40 MG 1 tablet Orally daily for 90 days 02/04/2024 Active Methocarbamol 750 MG 1 tablet Orally bid prn neck pain for 30 days 06/04/2022 Unknown predniSONE 50 MG 1 tablet with food o r milk Orally Once a day for 5 days 07/29/2024 Active HYDROcodone-Acetaminophen 5-325 MG 1 tablet as needed Orally tid for 7 days 04/18/2024 Active Ondansetron HCl 4 MG 1 tablet Orally bid prn N/V for 30 days 09/04/2022 Unknown Ondansetron HCl 4 MG 1 tablet Orally tid prn N/V for 30 days 02/04/2024 Active traMADol HCl 50 MG 1 tablet as needed Orally tid for 7 days 09/04/2022 Unknown Famotidine 20 MG 1 tablet at bedtime as needed Orally Once a day 09/24/2023 Unknown Social History Alcohol Screen (Audit-C) Question Answer Notes Did you have a drink containing alcohol in the p ast year? Yes How often did you have 6 or more drinks on one occasion in the past year? Never (0 point) Points 0 Interpretation Negative Problems Problem Type SNOMED Code ICD Code Onset Dates Problem Status W/U Status Risk Notes Problem 280476151 Overweight (E66.3) Active confirmed Problem 4439479 Primary insomnia (F51.01) Active confirmed Problem 11445560 Other chronic pa in (G89.29) Active confirmed Problem 0063841614822 Tinnitus, right ear (H93.11) Active confirmed Problem 610624983 Mild intermitten t asthma, uncomplicated (J45.20) Active confirmed Problem 863970933 Diverticulosis o f large intestine without perforation or abscess without bleeding (K57.30) Active confirmed Problem 194252808 Diverticulitis o f intestine, part unspecified, without perforation or abscess without bleeding (K57.92) Active confirmed Problem 924450158 Spondylosis with out myelopathy or radiculopathy, lumbar region (M47.816) Active confirmed Problem 03495361 Other cervical d isc degeneration, unspecified cervical region (M50.30) Active confirmed Problem 935056241 Paresthesia of s kin (R20.2) Active confirmed Problem 951399442 Personal history of colonic polyps (Z86.010) Active confirmed Problem 393335616 Gastroesophageal reflux disease without esophagitis (K21.9) Active confirmed Problem 60213561 Major depressive disorder with single episode, in full remission (F32.5) Active confirmed Problem 908620683 Gastro-esophagea l reflux disease with esophagitis, without bleeding (K21.00) Active confirmed Vital Signs Heart Rate 57 /min 04/18/2024 Respiratory Rate 16 /min 04/18/2024 Oximetry 98 % 04/18/2024 Blood pressure diastolic 88 mm Hg 04/18/2024 Height 63 in 05/20/2024 Blood pressure systolic 118 mm Hg 04/18/2024 Weight 164 lbs 05/20/2024 BMI 29.05 kg/m2 05/20/2024 Encounters Encounter Location Date Provider Diagnosis [facility] Quality Programs Department [address] [place] [address] 09/29/2023 Gerald Tavares [address] [address] 10/07/2023 Gerald Tavares [address] [address] 10/09/2023 Gerald Tavares Other cervical disc degeneration, unspecified cervical region M50.[address] [address] 09/24/2023 Gerald Tavares [address] [address] 09/21/2024 Gerald Tavares Encounter for genera l adult medical examination without abnormal findings Z00.00 [address] [place] [address] 04/18/2024 Gerald Tavares Other cervical disc degeneration, unspecified cervical region M50.30 ; Tinnitus, right ear H93.11 ; Overweight E66.3 ; Body mass index [BMI] 29.0-29.9, adult Z68.29 ; Mild intermittent asthma, uncomplicated J45.20 and Primary insomnia F51.01 [address] [place] [address] 05/20/2024 Gerald Tavares Abnormal weight gain R63.5 ; Overweight E66.3 and Body mass index [BMI] 29.0-29.9, adult Z68.29 [address] [place] [address] 09/24/2023 Gerald Tavares Other cervical disc degeneration, unspecified cervical region M50.30 [address] [place] [address] 11/04/2023 Gerald Tavares Abnormal weight gain R63.5 ; Overweight E66.3 and Body mass index [BMI] 29.0-29.9, adult Z68.29 [address] [place] [address] 07/29/2024 Gerald Tavares Acute bronchitis, unspecified J20.9 [address] [place] [address] 02/04/2024 Gerald Tavares Other cervical disc degeneration, unspecified cervical region M50.30 ; Major depressive disorder with single episode, in full remission F32.5 ; Gastroesophageal reflux disease without esophagitis K21.9 ; Other chronic pain G89.29 and Headache, unspecified R51.9 Assessments Encounter Date Diagnosis (ICD Code) Assessment Notes Treatment Notes Treatment Clinical Notes Section Notes 09/24/2023 Other cervical disc degeneration, unspecified cervical region (ICD-10 - M50.30) continue robaxin oarrs ok erx norco prn PT if not better 11/04/2023 Abnormal weight gain (ICD-10 - R63.5) diet/exercise send semiglutide to [facility] - 1 month of starter dose then she will do the next dose rtc 2 months 11/04/2023 Overweight (ICD-10 - E66.3) diet/exercise 02/04/2024 Other cervical disc degeneration, unspecified cervical region (ICD-10 - M50.30) erx zanaflex [facility] note for work 02/04/2024 Major depressive disorder with single episode, in full remission (ICD-10 - F32.5) stable monitor 04/18/2024 Other cervical disc degeneration, unspecified cervical region (ICD-10 - M50.30) oarrs ok continue norco prn PT if worsens or injections 04/18/2024 Tinnitus, right ear (ICD-10 - H93.11) refer to ENT for eval and tx d/w pt that there may not be many options 07/29/2024 Acute bronchitis, unspecified (ICD-10 - J20.9) cxr if not better rtc prn 10/09/2023 Other cervical disc degeneration, unspecified cervical region (ICD-10 - M50.30) 09/21/2024 Encounter for general adult medical examination without abnormal findings (ICD-10 - Z00.00) 05/20/2024 Abnormal weight gain (ICD-10 - R63.5) diet/exercise rtc 1 month we will send in semiglutide to [facility] in [place] 05/20/2024 Overweight (ICD-10 - E66.3) diet/exercise 05/20/2024 Body mass index [BMI] 29.0-29.9, adult (ICD-10 - Z68.29) 04/18/2024 Overweight (ICD-10 - E66.3) diet/exercise 02/04/2024 Gastroesophageal reflux disease without esophagitis (ICD-10 - K21.9) stable monitor diet 11/04/2023 Body mass index [BMI] 29.0-29.9, adult (ICD-10 - Z68.29) 02/04/2024 Other chronic pain (ICD-10 - G89.29) 04/18/2024 Body mass index [BMI] 29.0-29.9, adult (ICD-10 - Z68.29) 04/18/2024 Mild intermittent asthma, uncomplicated (ICD-10 - J45.20) rec PFT ICS if s/s worsen 02/04/2024 Headache, unspecified (ICD-10 - R51.9) erx zanaflex motrin/tylenol prn more tension from C spine dz TY log 04/18/2024 Primary insomnia (ICD-10 - F51.01) sleep hygeine rtc if wishes to do meds - prob due to C DDD and shoulder pains - ?flexeril or mobic Plan Of Treatment Pending Test Test Name Order Date LIPID PANEL (CHOL/TRIG/HDL/LDL) 09/22/19 25 XR Chest PA and Lateral (Routine CXR) * 03/05/2023 MAMM SCREEN BILAT ELIZABETH 3D GLOBAL* 2022 CMP (COMP MET POE) w/eGFR CKD-EPI 2024 CBC WITH DIFF 09/21/2024 Next Appt Details Provider Name:Gerald Castillo claudy, 09/26/2024 01:15:00 PM, [address] [place], [address], Insurance Providers Payer Name Payer Address Payer Phone Subscriber Number Group Number Insured Name Patient Relationship to Insured Coverage Start Date Coverage End Date ANTHEM ACCESS PPO PLUS LOCAL PLAN [address] [place] [address] [id number] Tiera [place] Self - patient is the insured 3 Medical (General) History Medical History History ICD Code C DDD L DDD GERD HH YAYO asthma colon polyp urinary incontinence diverticulosis - flare up in 09/[address] - nonobstructing osteopenia esophagitis int/ext hemorrhoids Surgical History Surgery Date(Month/Year) L shoulder surgery x 6 L knee scope ryanne - 2011 EGD - 2019 +esophagitis colonoscopy - 2019 +polyp EGD - 05/12/23 +HH/esophagitis/?barretts colonoscopy - 05/12/2023 +3 polyps, int/e xt hem, +diverticulosis
--- OUTSIDE RECORDS SUMMARY | 2024-09-22 09:47 | XMS_ITS | Encounter Summary ---
Author Organization [facility] Address [address] [place], [place] [address] Care Team Providers Care Systems Development Consultant Name Role Phone Robert Crowe DO Primary Care Provider [phone] Source Comments In the event this information is protected by the Federal Confidentiality of Alcohol and Drug AbusePatient Records regulations: The Federal rules restrict any use of the information to criminally investigate or prosecute any alcohol or drug abuse patient.[facility] Encounter Details Date Type Department Care Team (Late st Contact Info) Description 02/15/2018 Radiology Radiology [address] [place] [address] Randee Tam, separator operator Social History Tobacco Use Types Packs/Day Years Used Date Smoking Tobacco: Former Cigarettes 1 25 Smokeless Tobacco: Never Alcohol Use Standard Drinks/Week Comments No 0 (1 standard drink = 0.6 oz pur e alcohol) PHQ-2 Answer Date Recorded PHQ-2 score 4 02/15/2018 Comments Unknown Sex and Gender Information Value Date Recorded Sex Assigned at Not on file Legal Sex Female 10:09 AM EST Gender Identity Not on file Sexual Orientation Not on file documented as of this encounter Plan of Treatment Not on file documented as of this encounter Visit Diagnoses Not on filedocumented in this encounter Care Teams Systems Development Consultant Relationship Specialty Start Date End Date Robert Crowe DO PCP - General Family Medicine 02/18/18 documented as of this encounter
--- OUTSIDE RECORDS SUMMARY | 2024-09-22 09:47 | XMS_ITS | Encounter Summary ---
Author Organization [facility] Address [address] [facility] [place] [address] Care Team Providers Care Pit Hoist Operator Name Role Phone Unallocated, Noms Provider Primary Care Provi jarrett Gerald Tavares MD Unavailable [phone] Ubaldo Mendoza DO Unavailable Encounter Details Date Type Department Care Team (Late st Contact Info) Description 12/16/2022 Abstract [facility] [address] [facility] [address] Zeynep Barbour PA [address] [place], [facility] Social History Tobacco Use Types Packs/Day Years Used Date Smoking Tobacco: Never Alcohol Use Standard Drinks/Week Comments Never 0 (1 standard drink = 0.6 oz pur e alcohol) caffeine: 1-2 cups/day Comments Unknown Sex and Gender Information Value Date Recorded Sex Assigned at Female 11/10/2022 8:37 AM EDT Legal Sex Female 6:38 PM EDT Gender Identity Female 11/10/2022 8:37 AM EDT Sexual Orientation Not on file documented as of this encounter Plan of Treatment Not on file documented as of this encounter Visit Diagnoses Not on filedocumented in this encounter Care Teams Pit Hoist Operator Relationship Specialty Start Date End Date Unallocated, Noms Provider, [place] [address] PCP - General Family Medicine 06/19/23 Gerald Tavares MD [address] [place] [address] Referring Physician Family Medicine 08/16/24 Ubaldo Mendoza DO [address] [address] Otolaryngology 08/16/24 documented as of this encounter
--- OUTSIDE RECORDS SUMMARY | 2024-09-22 09:47 | XMS_ITS | Clinical Summary ---
Author Organization [facility] Address [address] [place] [address] Care Team Providers Care Salesperson Terrazzo Tiles Name Role Phone Unallocated, Noms Provider MD Primary Care Provi jarrett Gerald Singh MD Unavailable [phone] Ubaldo Mendoza DO Unavailable [phone] Allergies No known active allergies Medications citalopram (CeleXA) 20 MG tablet 1 (one) time each day at the same time Active esomeprazole (NexIUM) [address] capsule 1 capsule 1 (one) time each day at the same time 02/04/2024 Active Active Problems No known active problems Resolved Problems Problem Noted Date Diagnosed Date Resolved Date Acid reflux 06/20/2024 06/20/2024 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/20/2024 06/20/2024 Overview (06/20/2024): 726.0 LEFT [facility] [id number] DOI 07/29/12 Ellison's esophagus 06/20/2024 06/21/19 Colon polyp 06/20/2024 06/20/2024 Dysphagia 06/20/2024 06/20/2024 Irregular Z line of esophagus 06/20/2024 06/20/2024 History of colon polyps 06/20/2024 03/0 06/2024 History of diverticulitis 06/20/2024 Irregular bowel habits 06/20/2024 03/03 /2025 Lumbosacral disc herniation 06/20/2024 06/20/2024 Osteoarthritis 06/20/2024 06/20/2024 RLQ abdominal pain 06/20/2024 Schatzki's ring 06/20/2024 06/20/2024 Cervical spondylosis with radiculopathy 06/20/2024 06/20/2024 Upper abdominal pain 06/20/2024 025 Bartholin cyst 06/08/2024 06/20/2024 Lumbar disc herniation 02/16/201806/20 Overview (06/20/2024): Added automatically from request for surgery [id number] Bursitis of shoulder 06/30/2016 025 Full thickness rotator cuff tear 03/12/2014 06/20/2024 Overview (06/20/2024): 840.6 LEFT, RECURRENT [facility] [id number] DOI 07/29/12 Acute gastric ulcer 03/10/2014 06/21/19 25 Encounters Date Type Department Care Team Description 08/16/2024 3:30 PM EDT Office Visit [facility] [address] [place] [address] Ubaldo Mendoza, Family history of aneurysm (Primary Dx); Pulsatile tinnitus; Sensorineural hearing loss (SNHL) of right ear, unspecified hearing status on contralateral side 08/16/2024 Bamboo flowsheet [facility] [address] [place] [address] Ubaldo Mendoza DO 08/16/2024 Travel from Last 3 Months Immunizations Immunization Administration Dates Next Due Hep A, Adult 05/14/2012 Hep B, Adolescent or Pediatric 05/14/2012 Novel [id number], preservative-free 04/05 Tdap 12/23/2023 Family History Medical History Relation Name Comments Arthritis Father Ovarian cancer Mother Relation Name Status Comments Brother (1) Daughter Alive Father Alive Mother Sister (4) Son Alive Social History Tobacco Use Types Packs/Day Years Used Date Smoking Tobacco: Former Cigarettes Tobacco Cessation:Counseling Given: Not Answered Alcohol Use Standard Drinks/Week Comments Never 0 (1 standard drink = 0.6 oz pur e alcohol) caffeine: 1-2 cups/day Comments Unknown Sex and Gender Information Value Date Recorded Sex Assigned at Female 11/10/2022 8:37 AM EDT Legal Sex Female 6:38 PM EDT Gender Identity Female 11/10/2022 8:37 AM EDT Sexual Orientation Not on file Last Filed Vital Signs Vital Sign Reading Time Taken Comments Blood Pressure 120/76 05/24/2024 2:12 PM EST Pulse 68 12/23/2023 9:37 AM EDT Temperature 36.7 C (98 F) 12/23/2023 9:37 AM EDT Respiratory Rate - - Oxygen Saturation 98% 12/23/2023 9:37 AM EDT Inhaled Oxygen Concentration - - Weight 72.6 kg (160 lb) 08/16/2024 2:40 PM EDT Height 160 cm (5' 3 ) 08/16/2024 2:40 PM EDT Body Mass Index 28.34 08/16/2024 2:40 PM EDT Plan of Treatment Health Maintenance Due Date Last Done Comments CT Colonography 1969 FIT-DNA 1969 FIT 1969 FOBT 1970 Sigmoidoscopy 1970 Mammogram 06/04/2023 06/04/2022 Influenza Vaccine (Season Ended) 2024 Pap Smear 05/24/2027 05/24/2024, 04/27/2023 Cervical Cancer Screening 04/27/2028 HPV/Cotest 04/27/2028 04/27/2023 Colonoscopy 05/02/2031 05/02/2021 Colorectal Cancer Screening 05/02/2031 Procedures Procedure Name Priority Date/Time Associated Diagnosis Comments PAP SMEAR Routine 05/24/2024 12:00 AM EST THIN PREP TIS PAP AND HR HPV DNA Routine 04/27/2023 9:10 AM EST Well woman exam with routine gynecological exam BI MAMMOGRAM SCREENING TOMOSYNTHESIS BILATERAL Routine 06/04/2022 from Last 3 Months or Most Recently Relevant to Health Maintenance Results * Pap Smear (05/24/2024 12:00 AM EST) Swab Cervical swab / Unknown Zeynep Barbour PA LAB CYTOLOGY ORDERABLES Final Re sult EXTERNAL LAB * THIN PREP TIS PAP AND HR HPV DNA (04/27/2023 9:10 AM EST) Swab 04/27/2023 9:10 AM EST Zeynep Barbour PA LAB CYTOLOGY ORDERABLES Final Re sult Performing Organization Address City/[facility]/ZIP Co de Phone Number EXTERNAL LAB * Bilateral screening mammogram with tomosynthesis (06/04/2022) Anatomical Region Laterality Modality Breast Bilateral Mammography Narrative 06/04/2022 12:00 AM EST PERFORMED AT W LOCATION:[address] Patient: COLLEEN Biswas Exam Date: 06/04/2022 : 1970 Gender:F Ordering : DR YANELY MEDEL . Admission #: [id number] Family : DR GERALD SINGH D.O. Order #: [id number] CLICK HERE TO VIEW EXAM RADIOLOGY REPORT PROCEDURE: MAMMOGRAM SCREENING 3D BILATERAL CAD COMPARISON: MG MAMM SCREEN ISABEL W CAD 03/07/2020. MG MAMM SCREEN 3D ISABEL CAD 04/09/2021. INDICATIONS: Screening mammography Calculator Name NCI Breast Cancer Risk Assessment Tool 5 Year Breast Cancer Risk 0.80% Lifetime Breast Cancer Risk 6.30% Personal Breast Cancer No Personal Ovarian Cancer No Treatments None Family Cancers Mother with ovarian cancer at age 54; Grandmother-paternal with kidney cancer at age 65. LOCATION: [facility] BREAST COMPOSITION: Heterogeneously dense which may obscure small masses. FINDINGS: DIAGNOSTIC CATEGORY [...] PALPABLE LUMP SHOULD BE BIOPSIED. Dictated by: Pradip Tang MD on 06/04/2022 at 14:00 Approved by: Pradip Tang MD on 06/04/2022 at 14:03 Procedure Note CONVERSION, GENERIC - 10/24/2022 PERFORMED AT [facility] LOCATION:[address] Patient: COLLEEN Jones. Exam Date: 06/04/2022 : 1970 Gender:F Ordering : DR YANELY MEDEL . Admission #: [id number] Family : DR GERALD SINGH D.O. Order #: [id number] CLICK HERE TO VIEW EXAM RADIOLOGY REPORT PROCEDURE: MAMMOGRAM SCREENING 3D BILATERAL CAD COMPARISON: MG MAMM SCREEN ISABEL W CAD 03/07/2020. MG MAMM SCREEN 3D ISABEL CAD 04/09/2021. INDICATIONS: Screening mammography Calculator Name NCI Breast Cancer Risk Assessment Tool 5 Year Breast Cancer Risk 0.80% Lifetime Breast Cancer Risk 6.30% Personal Breast Cancer No Personal Ovarian Cancer No Treatments None Family Cancers Mother with ovarian cancer at age 54;Grandmother-paternal with kidney cancer at age 65. LOCATION: [facility] BREAST COMPOSITION: Heterogeneously dense which may obscure small masses. FINDINGS: DIAGNOSTIC CATEGORY 2--BENIGN FINDING. NO CHANGE FROM COMPARISON. Scattered benign-appearing nodules are present. Scatteredbenign-appearing calcifications are present. Scattered benign-appearing lymph nodes are present. RIGHT BREAST: No significant suspicious finding. LEFT BREAST: No significant suspicious finding. RECOMMENDATIONS: ROUTINE MAMMOGRAM AND CLINICAL EVALUATION IN 12 MONTHS. PLEASE NOTE: A NORMAL MAMMOGRAM DOES NOT EXCLUDE THE POSSIBILITY OFBREAST CANCER. A CLINICALLY SUSPICIOUS PALPABLE LUMP SHOULD BE BIOPSIED. Dictated by: Pradip Tang MD on 06/04/2022 at 14:00 Approved by: Pradip Tang MD on 06/04/2022 at 14:03 us Yanely Medel DO IMG BI PROCEDURES Final Result from Last 3 Months or Most Recently Relevant to Health Maintenance Insurance [facility] Care Teams Salesperson Terrazzo Tiles Relationship Specialty Start Date End Date Unallocated, Noms MD Shukri [address] [place] [address] PCP - General Family Medicine 06/19/23 Gerald Singh MD [address] [place] [address] Referring Physician Family Medicine 08/16/24 Ubaldo Mendoza DO [address] [place] [address] Otolaryngology 08/16/24
--- OUTSIDE RECORDS SUMMARY | 2024-09-22 09:47 | XMS_ITS | Clinical Summary ---
Author Organization [facility] Address [address] [place], [place] [address] Care Team Providers Care Smoke Inspector Name Role Phone Robert Crowe DO Primary Care Provider [phone] Allergies Active Allergy Reactions Criticality Noted Date Comments Aspirin Other: See Comments Medium 04/07/2014 Medications fluticasone-sa lmeterol (ADVAIR) 100-50 mcg/dose dsdv Advair Diskus 100 mcg-50 mcg/dose powder for inhalation Act court albuterol (PROVENTIL) 2.5 mg /3 mL (0.083 %) nebulizer solution albuterol sulfate 2.5 mg/3 mL (0.083 %) solution for nebulization Active baclofen (LIORESAL) 10 mg tablet 01/17/20 18 Active citalopram (CELEXA) 20 mg tablet citalopram 20 mg tablet Active methylPREDNISo lone (MEDROL DOSE-PACK) 4 mg Dose-Pack 02/10/20 18 Active methylPREDNISo lone (MEDROL DOSE-PACK) 4 mg Dose-Pack methylprednisolone 4 mg tablets in a dose pack Active Active Problems Problem Noted Date Diagnosed Date Lumbar disc herniation 02/16/2018 Overview (02/16/2018): Added automatically from request for surgery [id number] Social History Tobacco Use Types Packs/Day Years Used Date Smoking Tobacco: Former Cigarettes 1 25 Smokeless Tobacco: Never Alcohol Use Standard Drinks/Week Comments No 0 (1 standard drink = 0.6 oz pur e alcohol) PHQ-2 Answer Date Recorded PHQ-2 score 4 02/15/2018 Area Deprivation Index Answer Date Russ rded National Score (1-100), lower number is lower ri sk Not on file 03/28/2020 State Score (1-10), lower number is lower risk N ot on file 03/28/2020 Data from: https://www.neighborhoodatlas.medicine.[facility].edu/. Last address used for calculation Not on file 03/28/2020 Comments Unknown Sex and Gender Information Value Date Recorded Sex Assigned at Not on file Legal Sex Female 10:09 AM EST Gender Identity Not on file Sexual Orientation Not on file Last Filed Vital Signs Vital Sign Reading Time Taken Comments Blood Pressure 122/72 02/18/2018 9:46 AM EDT Pulse 71 02/18/2018 9:46 AM EDT Temperature 36.1 C (97 F) 02/18/2018 9:26 AM EDT Respiratory Rate 16 02/18/2018 9:46 AM EDT Oxygen Saturation 95% 02/18/2018 9:46 AM EDT Inhaled Oxygen Concentration - - Weight 67.6 kg (149 lb) 02/18/2018 9:26 AM EDT Height 160 cm (5' 3 ) 02/15/2018 1:45 PM EDT Body Mass Index 26.39 02/15/2018 1:45 PM EDT Plan of Treatment Health Maintenance Due Date Last Done Comments Anxiety Screening 10/20/1987 Depression Screening 10/20/1987 HIV Screening 10/20/1987 Hepatitis C Screening 10/20/1987 DTaP,Tdap,Td Vaccine (1 - Tdap) 1988 Hepatitis B Vaccine (1 of 3 - 19+ 3-dose series) 10/19 Cervical Cancer Screening [address] Colonography 2014 Cologuard (FIT-DNA) 2014 Colonoscopy 2014 Colorectal Cancer Screening 2014 Diabetes Screening 2014 Fecal Occult Blood 2014 Lipid Screening 2014 Sigmoidoscopy 2014 Pneumococcal Vaccine: 50+ (1 of 1 - PCV) 10/20/2019 Shingrix Vaccine (1 of 2) 10/20/2019 Covid-19 Vaccine (1 - 2023- season) 2023 Influenza Vaccine (Season Ended) 2024 Insurance BLUE CARD PPO OOS Care Teams Smoke Inspector Relationship Specialty Start Date End Date Robert Crowe DO PCP - General Family Medicine 02/18/18
--- OUTSIDE RECORDS SUMMARY | 2024-09-22 09:47 | XMS_ITS | Clinical Summary ---
Author Organization [employer] [facility] tem Address [facility] [id number] [address] [place] [address] Care Team Providers Care Riprap Man Name Role Phone Gerald Tavares DO Primary Care Provider + [phone] Allergies No known active allergies Medications citalopram (CeleXA) 20 mg tablet Take 1 tablet (20 mg total) by mouth nightly. depression Activ e albuterol (PROVENTIL HFA;VENTOLIN HFA) 90 mcg/actuation inhaler Inhale 1 puff as needed. 09/14/19 22 Active esomeprazole (NexIUM) 40 mg capsuleIndicat ions:gastroeso phageal reflux disease Take 1 capsule (40 mg total) by mouth nightly Indications: gastroesophageal reflux disease. 05/24/19 25 Active semaglutide, weight loss, (WEGOVY) 1 mg/0.5 mL pen injector Inject under the skin once a week. Pt isn't going to take anymore, upsets her stomach 05/20/19 25 Active ibuprofen (MOTRIN) 800 mg tablet Take 1 tablet (800 mg total) by mouth every 8 (eight) hours as needed for pain. 60 tablet 06/24/19 25 Active Active Problems No known active problems Resolved Problems Problem Noted Date Diagnosed Date Resolved Date Bartholin cyst 06/08/2024 06/29/2024 Encounters Date Type Department Care Team Description 07/13/2024 10:00 AM EDT Office Visit Maggy Hernandez [facility] - Medical Oncology [facility] [place] [address] Jeanette Hall PA Encounter for postoperative care (Primary Dx); Dyspareunia, female 07/13/2024 Travel 07/07/2024 Travel 06/29/2024 3:00 PM EDT Office Visit Maggy Romero [facility] - Medical Oncology [address] [place] [address] Jeanette Hall PA Encounter for postoperative care (Primary Dx); Post-op pain 06/29/2024 Travel 06/29/2024 [facility] [address] [address] Regina Monsivais RN 06/25/2024 Telephone [facility] [address] [place] [address] Neeta Arnold Post-op Problem 06/23/2024 7:30 AM EST - 06/23/2024 9:00 AM EST Surgery [facility] [address] [place] [address] Daniel Gold MD EXCISION CYST BARTHOLIN [[id number] (CPT )] 06/23/2024 7:27 AM EST Anesthesia Event [facility] Surgery [address] [place] [address] Rios Burns MD Studer, Kelly Lynn, COMPUTER TECHNOLOGY INSTRUCTOR-MARKETING SUPPORT ASSISTANT 06/23/2024 5:19 AM EST - 06/23/2024 9:51 AM EST Hospital Encounter [facility] Surgery [address] [place] [address] Daniel Gold MD Post-op pain (Primary Dx); Abscess of Bartholin gland Discharge Disposition: Home from Last 3 Months Family History Medical History Relation Name Comments Aneurysm Father Atrial fibrillation Father Ovarian cancer Mother Anesthesia problems Neg Hx Relation Name Status Comments Father Alive Mother Social History Tobacco Use Types Packs/Day Years Used Date Smoking Tobacco: Former Cigarettes 30 1 986 - 2016 Passive Smoke Exposure: Current Smokeless Tobacco: Never Tobacco Cessation:Counseling Given: Not Answered Alcohol Use Standard Drinks/Week Comments Not Currently 0 (1 standard drink = 0.6 oz pur e alcohol) Childcare Answer Date Recorded Childcare Unknown 09/29/2018 Employment Answer Date Recorded Employment Unknown 09/29/2018 Hunger Screening Answer Date Recorded Within the past 12 months we worried whether our food would run out before we got money to buy more. Never True 06/10/2024 Within the past 12 months th e food we bought just didn't last and we didn't have money to get more. Never True 06/10/2024 Comments No Sex and Gender Information Value Date Recorded Sex Assigned at Not on file Legal Sex Female 12:12 PM EDT Gender Identity Not on file Sexual Orientation Not on file Last Filed Vital Signs Vital Sign Reading Time Taken Comments Blood Pressure 142/84 07/13/2024 9:56 AM EDT Pulse 64 07/13/2024 9:56 AM EDT Temperature 36.8 C (98.3 F) 07/13/2024 9:56 AM EDT Respiratory Rate 16 07/13/2024 9:56 AM EDT Oxygen Saturation 99% 07/13/2024 9:56 AM EDT Inhaled Oxygen Concentration - - Weight 74.7 kg (164 lb 9.6 oz) 07/13/2024 9:56 A M EDT Height 160 cm (5' 2.99 ) 07/13/2024 9:56 AM EDT Body Mass Index 29.16 07/13/2024 9:56 AM EDT Plan of Treatment Health Maintenance Due Date Last Done Comments Depression Screening 1981 Adult BMI Follow Up Plan 10/20/1987 Zoster (Shingles) Vaccine (1 of 2) 10/20/2019 COVID-19 Vaccine (2 - season) 2023 Influenza Vaccine 12/19/2024 04/05/2009, 04/05/2009 Adult BMI Screening 07/13/2025 07/13/2024 Tobacco Screening 07/13/2025 07/13/2024 Pap Smear 05/24/2027 05/24/2024 DTaP,Tdap and Td Vaccines (2 - Td or Tdap) 12/22/2033 12/23/2023 Medical Devices Not on file Procedures Procedure Name Priority Date/Time Associated Diagnosis Comments SURGICAL PATHOLOGY Routine 06/23/2024 7: 51 AM EST Abscess of Bartholin gland MI AN ELECTIVE ENDOTRACHEAL AIRWAY Routine 06/23/2024 7:35 AM EST MI EXCIS BARTHOLIN GLAND/CYST 06/23/2024 7:26 AM EST Abscess of Bartholin gland Case Notes RAVI EPIC 69 GAVE 75 POCT , URINE (NUCG) Routine 06/23/2024 5:34 AM EST from Last 3 Months Results * Surgical Pathology (06/23/2024 7:51 AM EST) Tissue (Other) 06/23/2024 7: 51 AM EST Comment:Pre-op diagnosis: RECURRENT Abscess of Bartholin gland Narrative COPATH - 06/30/2024 9:12 AM EDT [facility] [address] [place] [address] Surgical Pathology Consultation Patient Name:COLIN MACIAS:1970 (Age: 53)Gender:FTaken:06/23/2024Reported:06/30/2024Physician(s):Daniel Gold M.D. ([phone])Copy To: Rec. #:[id number]: #[id number] Final Pathologic Diagnosis Right Bartholin's gland, resection: Fibromuscular tissue includes clusters of glandular structures consistent with Bartholin's gland. Focal chronic inflammation is noted. No atypia identified. Report Electronically Signed Out acr/06/30/2024eugene George MD Interpretation performed at [facility], [address] [place] [place] [address], License number: [id number]. Clinical History Recurrent abscess of Bartholin gland. Gross Description Received in formalin labeled COLLEEN Bartholins gland is a pink-guzmán rubbery portion of soft tissue, 1.5 x 1.2 x 0.8 cm. No skin is identified. The specimen is inked black. The specimen serially sectioned to reveal pink-guzmán rubbery cut surfaces. Two parts sales representative cross-sections are submitted in a single cassette. (1, ss, [id number],m8.1) DM. dm/06/23/2024NSK Specimen(s) Received Right Bartholin's gland Fee Codes(s): 1; 80041 Daniel Gold MD PATHOLOGY/CYTOLOGY ORDERABLES F inal Result COPATH * MI AN ELECTIVE ENDOTRACHEAL AIRWAY (06/23/2024 7:35 AM EST) Yanique Robb APRN-CRNA - 06/23/2024 7:35 AM EST AGUSTINA Tai 06/23/2024 7:41 AM Airway Patient location during procedure: OR Urgency: Elective Date/Time: 06/23/2024 7:35 AM Airway not difficult IV In Situ: Peripheral General Information and Staff Service Provider: AGUSTINA Tai MARKETING SUPPORT ASSISTANT: AGUSTINA Tai Placed by: AGUSTINA Tai Patient Identified, IV Checked, Risks and Benefits Discussed, Surgical Consent, Monitors and Equipment Checked, Pre-op Evaluation and Timeout Performed Fire Risk Assessment Score: 0 Consent for Emergent Airway (if performed for an anesthetic, see related documentation for consents) Risks and benefits: risks, benefits and alternatives were discussed Indications and Patient Condition Preoxygenated: yes Patient position: Supine and Sniffing Mask difficulty assessment: Not Attempted Indications for airway management: Anesthesia Complications: No Complicating Factors: No Final Airway Details Final airway type: ETT Endotracheal airway: Cuffed and ETT - Single Lumen Techniques used for successful ETT Placement: Direct Laryngoscopy, With Stylet and Rapid Sequence Cormack-Lehane Classification: Grade I Endotracheal tube insertion site: Oral Bite Block Placed (Soft with extubation) Dentition Check Pre: See Pre-Evaluaton documentation Post Intubation Trauma? No Visibility: Cords Clear Blade: Hector Blade size: #3 Placement verified by: chest auscultation, capnography and symmetrical chest wall movement ETT size: 7.0 mm Measured from: Lips Secured at (cm): 21 Number of other approaches attempted: 0 Number of attempts at approach: 1 us Rios Burns MD ANESTHESIA ORDERABLES Final Result * POCT , urine (06/23/2024 5:34 AM EST) Nursing urine Negative Negative^N egative 06/24/2024 12:27 PM EST [facility] Urine / Unknown 06/23/2024 5 :34 AM EST 06/24/2024 12:27 PM EST Daniel Gold MD POINT OF CARE TEST ORDERABLES F inal Result Performing Organization Address City/State/[facility] Co de Phone Number [facility] [address] [place] [address] from Last 3 Months Insurance [address] [place] [address] ANTHEM Care Teams Riprap Man Relationship Specialty Start Date End Date Gerald Tavares DO [address] [place] [address] PCP - General Family Medicine 09/26/21
--- OUTSIDE RECORDS SUMMARY | 2024-09-22 09:47 | XMS_ITS | Encounter Summary ---
Author Organization [facility] Address [address] [place] [address] Care Team Providers Care Fuse Maker Name Role Phone Unallocated, Noms Provider Primary Care Provi jarrett Gerald Tavares MD Unavailable [phone] Ubaldo Mendoza DO Unavailable [phone] Encounter Details Date Type Department Care Team (Late st Contact Info) Description 06/07/2024 Orders Only [facility] [address] [place] [address] Conchis Harris LPN [address] [place] [address] Social History Tobacco Use Types Packs/Day Years [...] on file documented as of this encounter Procedures Procedure Name Priority Date/Time Associated Diagnosis Comments PAP SMEAR Routine 05/24/2024 12:00 AM EST documented in this encounter Results * Pap Smear (05/24/2024 12:00 AM EST) Swab Cervical swab / Unknown us [facility] CYTOLOGY ORDERABLES Final Re sult EXTERNAL LAB documented in this encounter Visit Diagnoses Not on filedocumented in this encounter Care Teams Fuse Maker Relationship Specialty Start Date End Date Unallocated, Noms Provider, [address] [place] [address] PCP - General Family Medicine 06/19/23 Gerald Tavares MD [address] [place] [address] Referring Physician Family Medicine 08/16/24 Ubaldo Mendoza DO [address] [place] [address] Otolaryngology 08/16/24 documented as of this encounter
--- OUTSIDE RECORDS SUMMARY | 2024-09-22 09:52 | XMS_ITS | CCD ---
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 on above: Performed By: #### C BC #### [facility] Laboratory [address] [place] [address] Dr. Jacob Mcdaniel Platelet mean volume (Bld) [Entitic vol] 8.9 fL Critically low 9.5-13.5 [facility] Comment on above: Performed By: #### C BC #### [facility] Laboratory [address] [place] [address] Dr. Jacob Mcdaniel PLT 263 103/ul Normal 150-450 [facility] Comment on above: Performed By: #### C BC #### [facility] [address] [place] [address] Dr. Jacob Mcdaniel RBC 4.89 106/ul Normal 4.20-5.40 [facility] Comment on above: Performed By: #### C BC #### [facility] [address] [place] [address] Dr. Jcaob Mcdaniel WBC 5.3 103/ul Normal 4.0-11.[address] [facility] Comment on above: Performed By: #### C BC #### [facility] Laboratory [address] [place] [address] Dr. Jacob Mcdaniel MG MAMM SCREEN 3D ISABEL CADon 06-04-2022 MG MAMM SCREEN 3D ISABEL CAD Patient: TIERA WAKEFIELD Exam Date: 06/04/2022 : 1970 Gender:F Ordering : DR HERB MEDEL . Admission #: [id number] Family : DR GERALD TAVARES D.O. Order #: [id number] CLICK HERE TO VIEW EXAM RADIOLOGY REPORT [...] kidney cancer at age 64. LOCATION: [facility] BREAST COMPOSITION: Heterogeneously dense,which may [...] Tang MD on 06/04/2022 at 14:[address] [facility] PROF 14(COMP METB)on 023 Albumin [Mass/Vol] 4.0 g/dL Normal 3.4-5.0 [facility] Comment on above: Performed By: #### T MACKENZIE, CMP #### [facility] [address] [place], [place] [address] Dr. Jacob Mcdaniel Albumin/Globulin [Mass ratio] 1.2 {ratio} Normal [facility] Comment on above: Performed By: #### T MACKENZIE, CMP #### [facility] [address] [place], [place] [address] Dr. Jacob Mcdaniel ALP [Catalytic activity/Vol] 69 U/L Normal 46-[address] [facility] Comment on above: Performed By: #### T SH, CMP #### [facility] [address] [address] [address] Jacob Mcdaniel ALT [Catalytic activity/Vol] 40 U/L Normal 14-[address] [facility] Comment on above: Performed By: #### T SH, CMP #### [facility] [address] [place] [address] [address] Jacob Mcdaniel Anion gap [Moles/Vol] 12.1 mmol/L Normal [facility] Comment on above: Performed By: #### T SH, CMP #### [facility] [address] [place] [address] [address] Jacob Mcdaniel AST [Catalytic activity/Vol] 21 U/L Normal 15-[address] [facility] Comment on above: Performed By: #### T SH, CMP #### [facility] [address] [place] [address] [address] Jacob Mcdaniel Bilirubin [Mass/Vol] 0.8 mg/dL Normal 0.2-1.[address] [facility] Comment on above: Performed By: #### T MACKENZIE, CMP #### [facility] [address] [place] [address] [address] Jacob Mcdaniel Calcium [Mass/Vol] 9.5 mg/dL Normal 8.5-10.1 [facility] Comment on above: Performed By: #### T MACKENZIE, CMP #### [facility] [address] [place] [address] [address] Jacob Mcdaniel Chloride [Moles/Vol] 103 mmol/L Normal 98-[address] [facility] Comment on above: Performed By: #### T SH, CMP #### [facility] [address] [place] [address] [address] Jacob Mcdaniel CO2 [Moles/Vol] 31.9 mmol/L Normal 21.0-32.0 [facility] Comment on above: Performed By: #### T SH, CMP #### [facility] [address] [place] [address] [address] Jacob Mcdaniel Creatinine [Mass/Vol] 0.84 mg/dL Normal 0.55-1.[address] [facility] Comment on above: Performed By: #### T SH, CMP #### [facility] [address] [place] [address] [address] Jacob Mcdaniel EGFR-AF SRI LANKAN >60 Normal >=60 [facility] Comment on above: Performed By: #### T SH, CMP #### [facility] [address] [place] [address] [address] Jacob Mcdaniel EGFR-NON AF SRI LANKAN >60 Normal >=[address] [facility] Comment on above: Performed By: #### T SH, CMP #### [facility] [address] [place] [address] [address] Jacob Mcdaniel Globulin (S) [Mass/Vol] 3.4 g/dL Normal [facility] Comment on above: Performed By: #### T SH, CMP #### [facility] [address] [place] [address] Dr. Jacob Mcdaniel Glucose [Mass/Vol] 105 mg/dL Normal 74-106 [facility] Comment on above: Performed By: #### T SH, CMP #### [facility] [address] [place] [address] [address] Jacob Mcdaniel Potassium [Moles/Vol] 4.0 mmol/L Normal 3.5-5.1 [facility] Comment on above: Performed By: #### T SH, CMP #### [facility] [address] [place] [address] [address] Jacob Mcdaniel Protein [Mass/Vol] 7.4 g/dL Normal 6.4-8.2 [facility] Comment on above: Performed By: #### T SH, CMP #### [facility] [address] [place] [address] [address] Jacob Mcdaniel Sodium [Moles/Vol] 143 mmol/L Normal 136-145 [facility] Comment on above: Performed By: #### T SH, CMP #### [facility] [address] [place] [address] [address] Jacob Mcdaniel Urea nitrogen [Mass/Vol] 12.0 mg/dL Normal 7.0-18.[address] [facility] Comment on above: Performed By: #### T MACKENZIE, CMP #### [facility] [address] [place], [place] [address] Dr. Jacob Mcdaniel Urea nitrogen/Creatinin e [Mass ratio] 14.3 mg/mg Normal [facility] Comment on above: Performed By: #### T SH, CMP #### [facility] [address] [place], [place] [address] Dr. Jacob Mcdaniel TSHon 06-04-2022 TSH 0.619 uIU/mL Normal 0.358-3.740 [facility] Comment on above: Performed By: #### T MACKENZIE, CMP ####[facility] [address] [place] [address]Dr. Jacob Mcdaniel VIT B12 AND FOLATEon 023 Cobalamin (Vitamin B12) [Mass/Vol] 396.0 pg/mL Normal 193.0-986.[address] [facility] Comment on above: Performed By: #### B 12FOL ####[facility] [address] [place] [id number]. Jacob Mcdaniel FOLATE 9.30 ng/mL Normal 8.60-58.[address] [facility] Comment on above: Performed By: #### B 12FOL ####[facility] [address] [place] [id number]. Jacob Mcdaniel XR DEXA BONE DENSITYon 06-04 [...] by: FRANK MONROY Date: 2022-06-04 13:[address] [facility] XR CSPINE 2_3 VIEWSon 2022 [...] by: LIZBETH TANG Date: 2022-05-30 13:[address] [facility] PAP ACOG PANEL 2: 30 to 65on 01-29-2022 . . Normal [facility] Comment on above: Result Comment: Perf ormed at: BA Performed By: #### [id number] #### [facility] [address] [place] [address] [address] Jacob Mcdaniel Age Gdln ACOG Testing 30-[address] [facility] Comment on above: Performed By: #### 4 [id number] #### [facility] [address] [place] [address] [address] Jacob Mcdaniel DIAGNOSIS: Comment Normal [facility] Comment on above: Result Comment: NEGA TIVE FOR INTRAEPITHELIAL LESION OR MALIGNANCY. CELLULAR CHANGES ASSOCIATED WITH ATROPHY AND INFLAMMATION ARE PRESENT. Performed at: BA Performed By: #### [id number] #### [facility] [address] [place] [address] [address] Jacob Mcdaniel HPV Aptima Negative Normal Negative [facility] Comment on above: Result Comment: This nucleic acid amplification test detects fourteen high-risk HPV types (16,18,31,33,35,39,45,51,52,56,58,59,66,68) without differentiation. Performed at: =G Performed By: #### 4 [id number] #### [facility] [address] [place] [address] [address] Jacob Mcdaniel Methodology: Comment Normal [facility] Comment on above: Result Comment: This liquid based ThinPrep(R) pap test was screened with the use of an image guided system. Performed at: WB Performed By: #### [id number] #### [facility] Laboratory [address] [place] [address] Dr. Jacob Mcdaniel Note: Comment Normal [facility] Comment on above: Result Comment: The Pap smear is a screening test designed to aid in the detection of premalignant and malignant conditions of the uterine cervix. It is not a diagnostic procedure and should not be used as the sole means of detecting cervical cancer. Both false-positive and false-negative reports do occur. . Performed at: WB Performed By: #### [id number] #### [facility] [address] [place] [address] Dr. Jacob Mcdaniel Performed by: Comment Normal [facility] Comment on above: Result Comment: Codey Lorenzo, Pit Steward (ASCP) Performed at: BA Performed By: #### 4 [id number] #### [facility] [address] [place] [address] Dr. Jacob Mcdaniel Specimen adequacy: Comment Normal [facility] Comment on above: Result Comment: Sati sfactory for evaluation. Endocervical and/or squamous metaplastic cells (endocervical component) are present. Performed at: BA Performed By: #### 4 [id number] #### [facility] [address] [place] [address] Dr. Jacob Mcdaniel AMYLASEon 09-25-2021 Amylase [Catalytic activity/Vol] 40 U/L Normal 25-[address] [facility] Comment on above: Performed By: #### C MP, ZEYNEP, LIPA ####[facility] [address] [place] [address]Dr. Jacob Mcdaniel CBC AUTO DIFFon 09-25-2021 BASO # 0.0 103/ul Normal 0.0-0.[address] [facility] Comment on above: Performed By: #### C BC ####[facility] [address] [place] [address]Dr. Jacbo Mcdaniel Basophils/100 WBC (Bld) 0.6 % Normal 0.2-2.[address] [facility] Comment on above: Performed By: #### C BC ####[facility] [address] [place] [id number]. Jacob Mcdaniel EO # 0.1 103/ul Normal 0.0-0.7 [facility] Comment on above: Performed By: #### C BC ####[facility] [address] [place] [address]Dr. Jacob Mcdaniel Eosinophils/100 WBC (Bld) 1.5 % Normal 0.9-7.0 [facility] Comment on above: Performed By: #### C BC ####[facility] [address] [place], [place] [address]Dr. Jacob Mcdaniel Erythrocyte distribution width (RBC) [Ratio] 12.2 % Normal 11.0-15.[address] [facility] Comment on above: Performed By: #### C BC ####[facility] [address] [place], [place] [address]Dr. Jacob Mcdaniel Hematocrit (Bld) [Volume fraction] 41.6 % Normal 36.0-48.[address] [facility] Comment on above: Performed By: #### C BC ####[facility] [address] [place], [place] [address]Dr. Jacob Mcdnaiel Hemoglobin (Bld) [Mass/Vol] 13.8 g/dL Normal 12.0-16.0 [facility] Comment on above: Performed By: #### C BC ####[facility] [address] [place], [place] [address]Dr. Jacob Mcdaniel IG # 0.01 10e3/ul Normal 0.00-0.03 [facility] Comment on above: Performed By: #### C BC ####[facility] [address] [place], [place] [address]Dr. Jacob Mcdaniel IG % 0.1 % Normal 0.0-0.5 [facility] Comment on above: Performed By: #### C BC ####[facility] [address] [place], [place] [address]Dr. Mitastar Mcdaniel LYMPH # 2.8 103/ul Normal 1.2-3.8 [facility] Comment on above: Performed By: #### C BC ####[facility] [address] [place] [id number]. Jacob Mcdaniel Lymphocytes/100 WBC (Bld) 40.1 % Normal 20.5-60.[address] [facility] Comment on above: Performed By: #### C BC ####[facility] [address] [place] [id number]. Jacob Mcdaniel MANUAL DIFF REQ NO Normal [facility] Comment on above: Performed By: #### C BC ####[facility] [address] [place] [id number]. Jacob Mcdaniel MCH (RBC) [Entitic mass] 30.1 pg Normal 26.7-34.[address] [facility] Comment on above: Performed By: #### C BC ####[facility] [address] [place], [place] [address]Dr. Jacob Mcdaniel MCHC (RBC) [Mass/Vol] 33.2 g/dL Normal 29.9-35.2 [facility] Comment on above: Performed By: #### C BC ####[facility] [address] [place] [id number]. Jacob Mcdaniel MCV (RBC) [Entitic vol] 90.6 fL Normal 81.0-99.[address] [facility] Comment on above: Performed By: #### C BC ####[facility] [address] [place], [place] [address]Dr. Jacob Mcdaniel MONO # 0.5 103/ul Normal 0.3-0.8 [facility] Comment on above: Performed By: #### C BC ####[facility] [address] [place] [address]Dr. Jacob Mcdaniel Monocytes/100 WBC (Bld) 6.9 % Normal 1.7-12.0 [facility] Comment on above: Performed By: #### C BC ####[facility] [address] [place], [place] [address]Dr. Jacob Mcdaniel NEUT # 3.5 103/ul Normal 1.4-6.5 [facility] Comment on above: Performed By: #### C BC ####[facility] [address] [place], [place] [address]Ex. Jacob Mcdaniel Neutrophils/100 WBC (Bld) 50.8 % Normal 43.0-75.[address] [facility] Comment on above: Performed By: #### C BC ####[facility] [address] [place], [place] [address]Oj. Jacob Mcdaniel Platelet mean volume (Bld) [Entitic vol] 9.1 fL Critically low 9.5-13.[address] [facility] Comment on above: Performed By: #### C BC ####[facility] [address] [place] [address]Dr. Jacob Mcdaniel PLT 279 103/ul Normal 150-[address] [facility] Comment on above: Performed By: #### C BC ####[facility] [address] [place] [address]Dr. Jacob Mcdaniel RBC 4.59 106/ul Normal 4.20-5.40 [facility] Comment on above: Performed By: #### C BC ####[facility] [address] [place], [place] [address]Fz. Jacob Mcdaniel WBC 6.9 103/ul Normal 4.0-11.[address] [facility] Comment on above: Performed By: #### C BC ####[facility] [address] [place] [id number]. Jacob Mcdaniel CT ABD/PELVIS WO CONon 09-25 [...] PATTI LOPEZ Date: 2021-09-25 18:01 Normal [facility] CULTURE URINEon 09-25-2021 CULTURE URINE Culture Observations : LIGHT GROWTH OF MIXED GENITAL BRANDT. NO POTENTIAL PATHOGENS SEEN. Normal [facility] Comment on above: Performed By: #### U RCX ####[facility] [address] [place], [place] [address]LzDoron Mcdaniel Covid-19 PCR ([facility] [facility] [employer])on SARS-CoV-2 (COVID-19) RNA MATT+probe Ql (Unsp spec) Not detected Normal NOT DETECTED [facility] Comment on [...] for this test is supported by the Manager [employer] of Health and Human Service's declaration that [...] be used). Performed By: #### C VDTB ####[facility] [address] [place] [address]Dr. Jaocb Mcdaniel ER URINE PROFILEon 2 Bilirubin Ql (U) Negative Normal NEGATIVE [facility] Comment on above: Performed By: #### PEG ROJO UMICRO #### [facility] Laboratory [address] [place] [address] Dr. Jacob Mcdaniel Clarity (U) CLEAR Normal CLEAR [facility] Comment on above: Performed By: #### PEG ROJO UMICRO #### [facility] [address] [place] [address] Dr. Jacob Mcdaniel Color (U) LT. YELLOW Normal YELLOW [facility] Comment on above: Performed By: #### PEG ROJO UMICRO #### [facility] Laboratory [address] [place] [address] Dr. Jacob Mcdaniel ERURAH A micrscopic examina tion will be performed if indicated. Normal [facility] Comment on above: Performed By: #### PEG ROJO UMICRO #### [facility] [address] [place] [address] Dr. Jacob Mcdaniel Glucose Ql (U) Negative Normal NEGATIVE [facility] Comment on above: Performed By: #### PEG ROJO UMICRO #### [facility] [address] [place] [address] Dr. Jacob Mcdaniel Hemoglobin Ql (U) Negative Normal NEGATIVE [facility] Comment on above: Performed By: #### BIB ROJOU UMICRO #### [facility] [address] [place] [address] Dr. Jacob Mcdaniel Ketones Ql (U) Negative Normal NEGATIVE [facility] Comment on above: Performed By: #### E RUR PREGU, UMICRO #### [facility] [address] [place] [address] Dr. Jacob Mcdaniel LEUKOCYTES MODERATE Abnormal NEGATIVE [facility] Comment on above: Performed By: #### E RUR PREGU, UMICRO #### [facility] [address] [place] [address] Dr. Jacob Mcdaniel Nitrite Ql (U) Negative Normal NEGATIVE [facility] Comment on above: Performed By: #### Brett RUTahir PREGU UMICRO #### [facility] [address] [place] [address] Dr. Jacob Mcdaniel pH (U) 7.0 [pH] Normal 5-[address] [facility] Comment on above: Performed By: #### Brett SHAH PREGU UMICRO #### [facility] [address] [place] [address] Dr. Jacob Mcdaniel SPEC GRAVITY 1.010 Normal 1.005-<=1.[address] [facility] Comment on above: Performed By: #### Brett SHAH PREGU, UMICRO #### [facility] [address] [place] [address] Dr. Jacob Mcdaniel UA PROTEIN Negative Normal NEGATIVE/ TRACE [facility] Comment on above: Performed By: #### Brett SHAH PREGU UMICRO #### [facility] [address] [place] [address] [address] Jacob Mcdaniel UR MICRO IND INDICATED Normal [facility] Comment on above: Performed By: #### Brett RUR PREGU, UMICRO #### [facility] [address] [place] [address] Dr. Jacob Mcdaniel Urobilinogen Qn (U) 0.2 {Tessy'U}/dL Normal 0.2 - 1.[address] [facility] Comment on above: Performed By: #### Brett RUR PREGU, UMICRO #### [facility] [address] [place] [address] Dr. Jacob Mcdaniel LIPASEon 09-25-2021 Lipase [Catalytic activity/Vol] 100.0 U/L Normal 73.0-393.[address] [facility] Comment on above: Performed By: #### C MP, ZEYNEP, LIPA ####[facility] [address] [place] [address]Dr. Jacob Mcdaniel URon 09-25-2021 , QUAL Negative Normal NEGATIVE [facility] Comment on above: Performed By: #### E RUR, PREGU, UMICRO #### [facility] [address] [place] [address] [address] Jacob Mcdaniel PROF 14(COMP METB)on 022 Albumin [Mass/Vol] 3.8 g/dL Normal 3.4-5.0 [facility] Comment on above: Performed By: #### C MP, ZEYNEP, LIPA ####[facility] [address] [place] [address]Dr. Jacob Mcdaniel Albumin/Globulin [Mass ratio] 1.1 {ratio} Normal [facility] Comment on above: Performed By: #### C MP, ZEYNEP, LIPA ####[facility] [address] [place] [address]Dr. Jacob Mcdaniel ALP [Catalytic activity/Vol] 76 U/L Normal 46-116 [facility] Comment on above: Performed By: #### C MP, ZEYNEP, LIPA ####[facility] [address] [place] [address]Dr. Jacob Mcdaniel ALT [Catalytic activity/Vol] 43 U/L Normal 14-[address] [facility] Comment on above: Performed By: #### C MP, ZEYNEP, LIPA ####[facility] [address] [place] [address]Dr. Jacob Mcdaniel Anion gap [Moles/Vol] 11.9 mmol/L Normal [facility] Comment on above: Performed By: #### C MP, ZEYNEP, LIPA ####[facility] [address] [place] [address]Dr. Jacob Mcdaniel AST [Catalytic activity/Vol] 24 U/L Normal 15-[address] [facility] Comment on above: Performed By: #### C MP, ZEYNEP, LIPA ####[facility] [address] [place] [address]Dr. Jacob Mcdaniel Bilirubin [Mass/Vol] 0.3 mg/dL Normal 0.2-1.[address] [facility] Comment on above: Performed By: #### C MP ZEYNEP, LIPA ####[facility] [address] [place], [place] [address]Dr. Jacob Mcdaniel Calcium [Mass/Vol] 8.6 mg/dL Normal 8.5-10.1 [facility] Comment on above: Performed By: #### C MP ZEYNEP, LIPA ####[facility] [address] [place], [place] [address]Dr. Jacob Mcdaniel Chloride [Moles/Vol] 104 mmol/L Normal 98-107 [facility] Comment on above: Performed By: #### C MP ZEYNEP, LIPA ####[facility] [address] [place], [place] [address]Dr. Jacob Mcdaniel CO2 [Moles/Vol] 27.7 mmol/L Normal 21.0-32.0 [facility] Comment on above: Performed By: #### C MP ZEYNEP, LIPA ####[facility] [address] [place], [place] [address]Dr. Jacob Mcdaniel Creatinine [Mass/Vol] 0.89 mg/dL Normal 0.55-1.02 [facility] Comment on above: Performed By: #### C MP, ZEYNEP, LIPA ####[facility] [address] [place], [place] [address]Dr. Yilan Mcdaniel EGFR-AF SRI LANKAN >60 Normal >=60 [facility] Comment on above: Performed By: #### C MP, ZEYNEP, LIPA ####[facility] [address] [place], [place] [address]Dr. Yilan Mcdaniel EGFR-NON AF SRI LANKAN >60 Normal >=60 [facility] Comment on above: Performed By: #### C MP, ZEYNEP, LIPA ####[facility] [address] [place] [address]Dr. Jacob Mcdaniel Globulin (S) [Mass/Vol] 3.5 g/dL Normal [facility] Comment on above: Performed By: #### C MP, ZEYNEP, LIPA ####[facility] [address] [place] [address]Dr. Jacob Mcdaniel Glucose [Mass/Vol] 91 mg/dL Normal 74-106 [facility] Comment on above: Performed By: #### C MP, ZEYNEP, LIPA ####[facility] [address] [place] [address]Dr. Jacob Mcdaniel Potassium [Moles/Vol] 3.6 mmol/L Normal 3.5-5.1 [facility] Comment on above: Performed By: #### C MP, ZEYNEP, LIPA ####[facility] [address] [place] [address]Dr. Jacob Mcdaniel Protein [Mass/Vol] 7.3 g/dL Normal 6.4-8.2 [facility] Comment on above: Performed By: #### C MP, ZEYNEP, LIPA ####[facility] [address] [place] [address]Dr. Jacob Mcdaniel Sodium [Moles/Vol] 140 mmol/L Normal 136-145 [facility] Comment on above: Performed By: #### C MP, ZEYNEP, LIPA ####[facility] [address] [place] [address]Dr. Jacob Mcdaniel Urea nitrogen [Mass/Vol] 14.0 mg/dL Normal 7.0-18.0 [facility] Comment on above: Performed By: #### C MP, ZEYNEP, LIPA ####[facility] [address] [place] [address]Dr. Jacob Mcdaniel Urea nitrogen/Creatinin e [Mass ratio] 15.7 mg/mg Normal [facility] Comment on above: Performed By: #### C MP, ZEYNEP, LIPA ####[facility] [address] [place] [address]Dr. Jacob Mcdaniel URINE MICROSCOPIC ONLYon BACTERIA SMALL Abnormal NONE SEEN The [facility] Comment on above: Performed By: #### E RUR, PREGU, UMICRO #### [facility] [address] [address] [address] Jacob Mcdaniel Bacteria identified Cx Nom (U) INDICATED Normal [facility] Comment on above: Performed By: #### E RUR, PREGU, UMICRO #### [facility] [address] [address] [address] Jacob Mcdaniel CAST NONE SEEN Normal NONE SEEN The [facility] Comment on above: Performed By: #### E RUR, PREGU, UMICRO #### [facility] [address] [address] [address] Jacob Mcdaniel Crystals LM Nom (Urine sed) NONE SEEN Normal NONE SEEN The [facility] Comment on above: Performed By: #### E RUR, PREGU, UMICRO #### [facility] [address] [place] [address] Dr. Jacob Mcdaniel Epithelial cells LM Ql (Urine sed) FEW Abnormal NONE SEEN /RARE [facility] Comment on above: Performed By: #### E RUR, PREGU, UMICRO #### [facility] [address] [address] [address] Jacob Mcdaniel MUCOUS NONE SEEN Normal NONE SEEN The [facility] Comment on above: Performed By: #### E RUR, PREGU, UMICRO #### [facility] [address] [address] [address] Jacob Mcdaniel RBC NONE SEEN Abnormal 0-2 [facility] Comment on above: Performed By: #### E RUR, PREGU, UMICRO #### [facility] [address] [address] [address] Jacob Mcdaniel WBC 10-20 Abnormal NONE SEEN The [facility] Comment on above: Performed By: #### E RUR, PREGU, UMICRO #### [facility] [address] [place] [address] Dr. Jacob Mcdaniel XR lumbar spine AP/LAT/FLX/E XTon 07-29-2021 XR lumbar spine AP/LAT/FLX/EXT [facility] [address] [address] XRay Report Signed Patient: Tiera Wakefield MR#: [id number] 21 : 1970 Acct:[id number] Age/Sex: 50 / F ADM Date: 07/29/21 Loc: XD Room: Type: [facility] Attending Dr: Matteo Person MD [...] Aguilar Jr., D.O.07/29/2021 2:43 PM Dictation Location: [place] [address] Transcribed By: [facility] 07/29/21 1443 Dictated By: Wilson Aguilar Jr, DO 07/29/21 1441 Signed By: 07/29/21 1443 [facility] Operative Reporton 9 Operative Report MR#: [id number] S [facility] Pt. Name: Tiera Wakefield Room #: 0C Discharge Date: Birthdate: 1970 OPERATIVE REPORT DATE OF SURGERY: 12/01/2018 SURGEON: Lizbeth Fleming M.D. PREOPERATIVE DIAGNOSIS: Left shoulder rotator cuff tear. POSTOPERATIVE DIAGNOSIS: Left shoulder rotator cuff tear. [employer] REPAIRER: Darinel Bartholomew M.D. ANESTHESIA: General. PROCEDURE PERFORMED: Left shoulder rotator cuff repair. INDICATIONS: The patient is a 48-year-old woman, who had previously had a rotator cuff repair performed by Dr. Melvin in [place]. I reviewed the intraoperative images and it [...] reconstruction. This would be to remove her [place] rotator cuff tendon and instead reconstruct with [...] Fleming M.D. Date Trans: 12/01/2018 11:50 A/cory [id number] cc: Gerald Tavares D.O. [address] [facility] [address] Normal The [facility] POC GLUCOSE LABon 12-01-2018 Glucose [Mass/Vol] 79 mg/dL Normal 70-100 [facility] Comment on above: Performed By: #### 8 [id number] #### [address] POC URINE PREGNANCYon 2018 Beta HCG ( test) Ql (U) Negative Normal NEGATIVE [facility] Comment on above: Result Comment: Perf ormed in PACU Performed By: #### 8 4140 #### [address] MRI SHOULDER WO CONTRAST LEF Ton 08-18-2018 MRI SHOULDER WO CONTRAST LEFT [facility] Department of Radiology [address] [place] [id number] Patient Name: TIERA WAKEFIELD : 1970 Sex: F Age: Race: White Pt. Location: Patient Status: Ordered Date: 08/10/2018 12:00:00 PM Completed Date: 08/18/2018 07:41 AM Requesting Provider: LIZBETH FLEMING Attending Provider: Report Copy To: Signs & Symptoms: M75.122 Complete rotatr-cuff tear/ruptr of left shoulder, not trauma I10 History: Kaylah, Hardware left shoulder -new number npc mri [id number] / jake baronen call ref # [id number] *er Comments: , , , Ordering Provider [...] 10. Electronically signed by:Peggy Winchester. Transcribed by: [email or web address], User Resident: Electronically Signed by: PEGGY WINCHESTER @ 08/18/2018 10:48 AM Normal [facility] Comment on above: Order Comment: , , = ========= , Ordering Provider - LIZBTEH FLEMING MD , CNOVon 03-16-2018 CNOV Office Visit (SPSNAV) -------TIERA WAKEFIELD ([id number]) 1970 [facility] Time Provider Jjpknsoadr47/27/18 2:55 PM Tahir ANN SPSNAV During your [...] in onemonth's time.Odalis Ahn Provider: ZORAIDA ALMANZAR [[id number]]Allergies As of Date: 03/16/2018 Noted Allergy ReactionASPIRIN [...] FOR* More...Follow-up and Disposition History RecordedEncounter Number: [id number] Status:Closed by Tahir ANN MD on 03/16/18 [facility] PROGRESSon 03-16-2018 Protein mass conc HNO ID: [id number] thor: Tahir Phillips: (none)Author Type: PhysicianType: Progress [...] chanellack in one month's time.Tahir Ann MD [facility] HISTORY PHYSICALon 8 HISTORY PHYSICAL HNO ID: [id number] thor: Sydney Reyna ([facility]) Marisol Hidaglo: (none)Author Type: Physician AssistantType: HANDPFiled: 02/18/2018 9:35 AMNote Text:LOCAL PROCEDURE HISTORY AND PHYSICAL EXAMSERVICE DATE: 02/18/2018SERVICE TIME: 9:34 AMProvisional Diagnosis/Treatment Plan: lumbar disc herniation/Right L5-H9IVUUVYrvuamkmukZMO: This is a 47 year old female [...] February 18, 2018 : 9:34 AM PAGER: [phone] [facility] NURSING PROGon 02-18-2018 Protein mass conc HNO ID: [id number] thor: Christine (Rn) [place], RNService: (none)Author Type: Registered NurseType: Nursing Progress NoteFiled: 02/18/2018 9:54 AMNote Text: Nursing Progress NotePatient Name: Tiera SunshineRN: [id number] Location: AV Endo/AV Endo Daily Note: 0946 - Pt arrived to post op awake, oriented x 3. Pt statespain has gone from 10/10 to 6/10 to right leg. Pt still having numbnessto right leg. Pedal push/pulls equal and strong. vSSThis note was completed by: Christine Downing, JOLENE [facility] OPERATIVE NOon 02-18-2018 OPERATIVE NO HNO ID: [id number] thor: Zoraida Fine: (none)Author Type: PhysicianType: Operative ReportFiled: 02/18/2018 9:44 AMNote Text:Pt presents for f/u. Continues to have Rt leg pain. Appearsuncomfortable, seen by Dr. Ann for surgical eval. Wants to proceed withan injection today to address the presenting symptoms. Consent obtained.Rt side was marked in the pre-op area. Pt is aware of risks, benefits,alternatives, expected outcome, equipment and personnel.[facility] time out was performed identifying the site, side and levelof procedure prior to start of procedure.[facility] - ELECTIVE PROCEDURELumbar Transforaminal [...] PT EDon 02-18-2018 PT ED HNO ID: [id number] thor: Christine (Rn) [place], RNService: (none)Author Type: [...] [facility] PT ED HNO ID: [id number] thor: Keely (Rn) Angelica, RNService: NursingAuthor Type: Registered NurseType: Patient EducationFiled: 02/18/2018 9:28 AMNote Text:PRE OP LEARNING ASSESSMENTPROCEDURE/SURGERY : PAIN MANAGEMENT: lumbar epiduralREADINESS TO LEARNCOGNITIVE ABILITY: Alert and orientedMOTIVATION TO LEARN: InterestedFAMILY SUPPORT: High - Very involved in pt carePATIENT LEARNS BEST BY: Individual InstructionVerbal InstructionFACTORS AFFECTING LEARNING: NonePHYSICAL LIMITATIONS AFFECTING LEARNING: NoneElectronically Signed By: Keely Dominguez RN [facility] CNOVon 02-16-2018 CNOV Office Visit (SPSNAV) -------YAREDTIERA TINAJERO ([id number]) 1970 FDate Time Provider Pjpjgbtjsf82/30/18 1:55 PM Tahir ANN SPSNAV During your [...] is greater than in the backDERMATOMAL DISTRIBUTION:Right: [id number] STATUS: Minimal Ambulation/Wheelchair BoundANTIPLATELET OR ANTICOAGULATION STATUS: [...] suddenly. Her MRI shows a large extruded L5-G6dmestdgb.I think there is a high chance that this will resolve spontaneously withnonoperative care. To manage her symptoms in the short term she may benefitfrom an epidural injection. I will see her back in one month's time.Tahir Ann MDReferring Provider: ZORAIDA ALMANZAR [[id number]]Allergies As of Date: 02/16/2018 Noted Allergy ReactionASPIRIN [...] on 02/16/18 [facility] [place] 02-16-2018 [facility] Telephone (NIQ) ----TIERA WAKEFIELD ([id number]) 1970 FDa Time Provider Rfxoqmbnou01/30/18 ZORAIDA ALMANZAR During your visit today, we [...] Epidural Steroid Injection [1061]Order(s):SURGICAL REQUEST - ELECTIVE [[id number]] Order #: [id number]: 1Prescriptions as of 02/16/2018 Sig: FLUTICASONE 100 [...] Status:Closed by KANDY MARTIN on 02/16/18 Normal [facility] HOSPon 02-16-2018 HOSP Patient:Aissatou Wakefield AMRN: Height:5' [...] for the following basenames: K,HCTProgress Notes ([facility] REJ):Elaine Woodson, RN, RN 02/16/2018 4:33 PM SignedPatient calledSherron saw Dr. Ann todaySherron is scheduled for an epidural injection sking for pain medication for relief prior to injectionReturn call to [phone] Griffin LPN 02/17/2018 9:21 AM SignedThe prescription you requested has been called in to Dr Tracy dejesus at [facility] to pt and advised.Pt verbalized understanding.Progress Notes ([facility]):Lisa Elizabeth 02/16/2018 1:54 PM SignedPt at check out scheduled for injection on 02/18/[address] Almanzar at 9AMRight L5-S1 TFESI-DM/-ThinMallyll sign Ermelinda Martin 02/16/2018 2:49 PM SignedESR Rossi Martin 02/16/2018 2:51 PM SignedEsr done Normal [facility] PROGRESSon 02-16-2018 Protein mass conc HNO ID: [id number] thor: Tahir Phillips: (none)Author Type: PhysicianType: Progress [...] [facility] Protein mass conc HNO ID: [id number] thor: Tahir Phillips: (none)Author Type: PhysicianType: Progress [...] is greater than in the backDERMATOMAL DISTRIBUTION:Right: [id number] STATUS: Minimal Ambulation/Wheelchair BoundANTIPLATELET OR ANTICOAGULATION STATUS: [...] 16, 2018 : 1:15 PM PAGER: Tyrell [facility] JAVIERDanilo 02-15-2018 CNOV Office Visit (SPNMAV) -------TIERA WAKEFIELD ([id number]) 1970 FDate Time Provider Oeggwehwle98/29/18 1:20 PM ZORAIDA ALMANZAR SPNMAV During your [...] side. [place].Other Issues Addressed at [...] Official reports pending.Loss of disc ht at L5/l0STGVTVTWLB:See diagnosis.PLAN:Discussed various options including non-surgical and surgical [...] right-sided sciatica [M54.41]Order(s):MRI LUMBAR SPINE WO IVCON [1011885] Order #: [id number] FUTURE CONSULT TO SPINE SURGERY [[id number]] Order #: [id number]: 1Prescriptions as of 02/15/2018 Sig: FLUTICASONE 100 MCG-SALMETERO* Advair Diskus 100 mcg-50 mcg/* ALBUTEROL SULFATE 2.5 MG/3 ML* albuterol sulfate 2.5 mg/3 mL* BACLOFEN 10 MG TABLET CITALOPRAM 20 MG TABLET citalopram 20 mg tablet METHYLPREDNISOLONE 4 MG TABLE* METHYLPREDNISOLONE 4 MG TABLE* methylprednisolone 4 mg table*Problem List As Of Date: 02/15/2018(None) Status:Closed by ZORAIDA ALMANZAR DO on 02/15/18 Normal [facility] MRI LUMBAR SPINE WO IVCONon 02-15-2018 MRI [...] crest and assume there are 5 lumbar-type vertebrae.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 Hasbeen seen in ED in [place] numerous times over past week.Other Issues Addressed [...] Official reports pending.Loss of disc ht at L5/g0VWLOHMDMVS:See diagnosis.PLAN:Discussed various options including non-surgical and surgical [...] to consulting/requestingphysic corinna.Zoraida Almanzar DO, MBA Normal [facility] SR-XR Spine Lumbosacral 2 or 3 Views IMPORTon 02-12-2018 SR-XR Spine Lumbosacral 2 or 3 Views IMPORT Images were obtained outside of [facility] [id number] Normal [facility] Vital Signs Date Time Vital Sign Value Performing Clinician Facility 08-16-2024 14:40-0400 Body height 160 cm Ubaldo Kaiser DO Work Phone: [facility] 08-16-2024 14:40-0400 Body mass index (BMI) [Ratio] 28.34 kg/m2 Ubaldo Kaiser DO Work Phone: [facility] 08-16-2024 14:40-0400 Body weight 72.58 kg Ubaldo Kaiser DO Work Phone: [facility] 07-13-2024 09:56-0400 Body height 160 cm Jeanette Tijerina PA [facility] 07-13-2024 09:56-0400 Body mass index (BMI) [Ratio] 29.16 kg/m2 Jeanette Tijerina PA [facility] 07-13-2024 09:56-0400 Body temperature 98.29 [degF] Jeanette Tijerina PA Work Phone: [facility] [employer] 07-13-2024 09:56-0400 Body weight 74.66 kg [facility]ijerina [facility] 07-13-2024 09:56-0400 Diastolic blood pressure 84 mm[Hg] Jeanette Tijerina PA [facility] 07-13-2024 09:56-0400 Heart rate 64 /min Jeanette Tijerina PA [facility] 07-13-2024 09:56-0400 Respiratory rate 16 /min Jeanette [facility]ijerina PA [facility] 07-13-2024 09:56-0400 SaO2% (BldA) [Mass fraction] 99 % Jeanette Tijerina PA [facility] 07-13-2024 09:56-0400 Systolic blood pressure 142 mm[Hg] Jeanette Tijerina PA [facility] 06-29-2024 15:03-0400 Body mass index (BMI) [Ratio] 29.05 kg/m2 Jeanette Tijerina PA Work Phone: [facility] 06-29-2024 15:03-0400 Body temperature 97.59 [degF] Jeanette Martinezne PA Work Phone: [facility] [facility] 06-29-2024 15:03-0400 Body weight 74.39 kg Jeanette Martinezne PA Work Phone: [facility] [facility] 06-29-2024 15:03-0400 Diastolic blood pressure 71 mm[Hg] Jeanette Martinezne PA Work Phone: [facility] 06-29-2024 15:03-0400 Heart rate 61 /min Jeanette Martinezne PA Work Phone: [facility] [facility] 06-29-2024 15:03-0400 SaO2% (BldA) [Mass fraction] 99 % Jeanette Tijerina PA Work Phone: [facility] 06-29-2024 15:03-0400 Systolic blood pressure 130 mm[Hg] Jeanette Tijerina PA Work Phone: [facility] 06-21-2024 14:09-0500 Body height 160 cm Ubaldo Kaiser DO Work Phone: [facility] 06-21-2024 14:09-0500 Body mass index (BMI) [Ratio] 28.34 kg/m2 Ubaldo Kaiser DO Work Phone: [facility] [employer] 06-21-2024 14:09-0500 Body weight 72.58 kg Ubaldo Kaiser DO Work Phone: [facility] 06-10-2024 10:37-0500 Body height 160 cm [facility] 06-10-2024 10:37-0500 Body mass index (BMI) [Ratio] 28.74 kg/m2 [facility] 06-10-2024 10:37-0500 Body temperature 98.4 [degF] [facility] 06-10-2024 10:37-0500 Body weight 73.[address] [facility] 06-10-2024 10:37-0500 Diastolic blood pressure 87 mm[Hg] [facility] 06-10-2024 10:37-0500 Heart rate 67 /min [facility] 06-10-2024 10:37-0500 Respiratory rate 14 /min [facility] 06-10-2024 10:37-0500 SaO2% (BldA) [Mass fraction] 96 % [facility] 06-10-2024 10:37-0500 Systolic blood pressure 122 mm[Hg] [facility] 06-08-2024 10:16-0500 Body mass index (BMI) [Ratio] 28.91 kg/m2 Daniel Gold MD Work Phone: [facility] 06-08-2024 10:16-0500 Body weight 74.03 kg Daniel Gold MD Work Phone: [facility] 05-24-2024 14:12-0500 Body mass index (BMI) [Ratio] 29.05 kg/m2 Zeynep BRAGG Work Phone: [facility] 05-24-2024 14:12-0500 Body weight 74.39 kg Zeynep BRAGG Work Phone: [facility] 05-24-2024 14:12-0500 Diastolic blood pressure 76 mm[Hg] Zeynep BRAGG Work Phone: [facility] 05-24-2024 14:12-0500 Systolic blood pressure 120 mm[Hg] Zeynep BRAGG Work Phone: [facility] 12-29-2023 20:04-0400 Body temperature 97.7 [degF] Manav Phillip [facility] 12-29-2023 20:04-0400 Diastolic blood pressure 92 mm[Hg] Manav Phillip [facility] 12-29-2023 20:04-0400 Heart rate 62 /min Manav Phillip [facility] 12-29-2023 20:04-0400 Respiratory rate 18 /min Manav Phillip [facility] 12-29-2023 20:04-0400 SaO2% (BldA) [Mass fraction] 97 % Manav Phillip [facility] 12-29-2023 20:04-0400 Systolic blood pressure 150 mm[Hg] [facility] 12-23-2023 09:37-0400 Body mass index (BMI) [Ratio] 28.87 kg/m2 Ben De Leon SMATOOS Work Phone: [facility] 12-23-2023 09:37-0400 Body temperature 98.01 [degF] Ben De Leon SMATOOS Work Phone: [facility] 12-23-2023 09:37-0400 Body weight 73.94 kg Ben De Leon SMATOOS Work Phone: [facility] 12-23-2023 09:37-0400 Diastolic blood pressure 70 mm[Hg] Ben De Leon DO Work Phone: [facility] 12-23-2023 09:37-0400 Heart rate 68 /min Ben De Leon DO Work Phone: [facility] 12-23-2023 09:37-0400 SaO2% (BldA) [Mass fraction] 98 % Ben De Leon SMATOOS Work Phone: [facility] 12-23-2023 09:37-0400 Systolic blood pressure 110 mm[Hg] Ben De Leon DO Work Phone: [facility] 11-16-2023 15:55-0400 Body height 161.29 cm [facility] 11-16-2023 15:55-0400 Body mass index (BMI) [Ratio] 28.4 kg/m2 [facility] 11-16-2023 15:55-0400 Body temperature 98.4 [degF] [facility] 11-16-2023 15:55-0400 Body weight 73.93 kg [facility] 11-16-2023 15:55-0400 Heart rate 63 /min [facility] 11-16-2023 15:55-0400 Respiratory rate 18 /min [facility] 11-16-2023 15:55-0400 SaO2% (BldA) [Mass fraction] 98 % [facility] 08-04-2023 14:46-0400 Blood Pressure Location Annasanto CasonSonya [facility] 08-04-2023 14:46-0400 Body temperature 97.52 [degF] Anna Sonya [facility] 08-04-2023 14:46-0400 Diastolic blood pressure 70 mm[Hg] Anna Sonya [facility] 08-04-2023 14:46-0400 Heart rate 84 /min Anna Sonya [facility] 08-04-2023 14:46-0400 Systolic blood pressure 113 mm[Hg] Anna Sonya [facility] 05-19-2023 08:50-0500 Blood Pressure Location Anna Sonya [facility] 05-19-2023 08:50-0500 Body temperature 96.8 [degF] Anna Sonya [facility] 05-19-2023 08:50-0500 Diastolic blood pressure 76 mm[Hg] Anna Sonya [facility] 05-19-2023 08:50-0500 Heart rate 62 /min Anna Sonya [facility] 05-19-2023 08:50-0500 Systolic blood pressure 120 mm[Hg] nAna Hassan [facility] 02-18-2023 10:30-0400 Body height 161.29 cm Christina [place] Other [facility] Other 02-18-2023 10:30-0400 Body mass index (BMI) [Ratio] 27.9 kg/m2 Christina Montana Other [facility] Other 02-18-2023 10:30-0400 Body temperature 98.2 [degF] Christina Montana Other [facility] Other 02-18-2023 10:30-0400 Body weight 72.58 kg Christina Montana Other [facility] Other 02-18-2023 10:30-0400 Diastolic blood pressure 78 mm[Hg] Christina Montana Other [facility] Other 02-18-2023 10:30-0400 Respiratory rate 18 /min Christina Rameymond Other [facility] Other 02-18-2023 10:30-0400 SaO2% (BldA) [Mass fraction] 98 % Christina Nan Other [facility] Other 02-18-2023 10:30-0400 Systolic blood pressure 134 mm[Hg] Christina Nan Other [facility] Other 12-20-2022 11:40-0400 Body height 161.29 cm Christina Nan Other [facility] Other 12-20-2022 11:40-0400 Body mass index (BMI) [Ratio] 27.55 kg/m2 Christina Montana Other [facility] Other 12-20-2022 11:40-0400 Body temperature 97 [degF] Christina Rameymond Other [facility] Other 12-20-2022 11:40-0400 Body weight 71.67 kg Christina Montana Other [facility] Other 12-20-2022 11:40-0400 Diastolic blood pressure 79 mm[Hg] Christina Montana Other [facility] Other 12-20-2022 11:40-0400 SaO2% (BldA) [Mass fraction] 98 % Christina Montana Other [facility] Other 12-20-2022 11:40-0400 Systolic blood pressure 142 mm[Hg] Christina Nan Other [facility] Other 11-17-2022 15:48-0400 Blood Pressure Location Anna Hassan [facility] 11-17-2022 15:48-0400 Body temperature 97.16 [degF] Anna Hassan [facility] 11-17-2022 15:48-0400 Diastolic blood pressure 75 mm[Hg] Anna Hassan [facility] 11-17-2022 15:48-0400 Heart rate 63 /min Anna Hassan [facility] 11-17-2022 15:48-0400 Systolic blood pressure 124 mm[Hg] Anna Hassan [facility] 07-26-2021 11:45-0400 Body height 161.29 cm Matteo Reneeky Other [facility] Other 07-26-2021 11:45-0400 Body mass index (BMI) [Ratio] 28.94 kg/m2 Matteo Raza Other [facility] Other 07-26-2021 11:45-0400 Body weight 75.3 kg Matteo Reneeky Other [facility] Other 07-26-2021 11:45-0400 Diastolic blood pressure 80 mm[Hg] Matteo Raza Other [facility] Other 07-26-2021 11:45-0400 SaO2% (BldA) [Mass fraction] 99 % Matteo Person Other [facility] Other 07-26-2021 11:45-0400 Systolic blood pressure 120 mm[Hg] Matteo Person Other [facility] Other Encounters Encounter Date Encounter Type Care [...] minutes Jeanette BRAGG Work Phone: Maggy Hernandez [facility] Comment on above: Encounter for postop erative care (Primary Dx); Dyspareunia, female Start: 07-13-2024 End: 07-13-2024 ambulatory [facility] Start: 07-08-2024 End: 07-08-2024 ambulatory [facility] Facility:[facility] Start: 06-29-2024 End: 06-29-2024 Postop follow up visit related to original px Jeanette BRGAG Work Phone: Maggy Hernandez [facility] Comment on above: Encounter for postop erative care (Primary Dx); Post-op pain Start: 06-29-2024 End: 06-29-2024 ambulatory [facility] Start: 06-29-2024 End: 06-29-2024 Telephone encounter Regina Monsivais RN [facility] Oncology, A Department of [facility] Start: 06-25-2024 End: 06-25-2024 Telephone encounter Neeta Arnold [facility] Darlin haro Comment on above: Post-op Problem Start: 06-23-2024 End: 06-23-2024 Evaluation and management of inpatient ELIS PALMA [facility] Start: 06-23-2024 End: 06-23-2024 Evaluation and management of inpatient DANIEL Landen GOLD [facility] Start: 06-21-2024 End: 06-21-2024 ambulatory UBALDO KAISER Not Available Start: 06-21-2024 End: 06-21-2024 Bamboo flowsheet Ubaldo Kaiser DO Work Phone: [facility] Start: 06-21-2024 End: 06-21-2024 Bamboo flowsheet Ubaldo Chaidez Reji DO [facility] Start: 06-21-2024 End: 06-21-2024 Office outpatient new 45 minutes Ubaldo Chaidez Reji DO Work Phone: [facility] Comment on above: Sensorineural hearin g loss (SNHL) of right ear, unspecified hearing status on contralateral side (Primary Dx); Pulsatile tinnitus; Tinnitus, unspecified laterality Start: 06-15-2024 End: 06-15-2024 Bamboo flowsheet Florence Howard AUD Work Phone: [facility] Start: 06-15-2024 End: 06-15-2024 Bamboo flowsheet Florence Howard AUD Work Phone: [facility] Start: 06-15-2024 End: 06-15-2024 Patient encounter procedure Florence S Lee AUD Work Phone: [facility] Comment on above: Sensorineural hearin g loss, bilateral (Primary Dx); Right-sided tinnitus Start: 06-15-2024 End: 06-15-2024 ambulatory FLORENCE HOWARD Not Available Start: 06-10-2024 ambulatory GERALD Robert [facility] Start: 06-10-2024 End: 06-10-2024 Patient encounter procedure [facility] Comment on above: Bartholin cyst; Preop testing Start: 06-10-2024 End: 06-10-2024 [facility] status [facility] Start: 06-10-2024 End: 06-10-[address] [facility] Start: 06-10-2024 Encounter for other preprocedural examination [facility] Start: 06-09-2024 End: 06-09-2024 Orders Only Daniel Gold MD Work Phone: [facility], A Department of [facility] Comment on above: Bartholin cyst (Prim jenny Dx); Preop testing Start: 06-09-2024 End: 06-09-2024 Patient encounter status Daniel Gold MD Work Phone: [facility] Start: 06-08-2024 End: 06-08-[address] [facility] Start: 06-08-2024 End: 06-08-2024 Office outpatient new 60 minutes Daniel Gold MD Work Phone: [facility], A Department [facility] Comment on above: Bartholin cyst (Prim jenny [...] 12-29-2023 Emergency department patient visit Manav Fisher [facility] Start: 12-23-2023 End: 12-23-2023 ambulatory BEN DE LEON Not Available Start: 12-23-2023 End: 12-23-2023 Office outpatient new 45 minutes Ben De Leon DO Work Phone: [facility] Comment on above: Puncture wound of ri ght foot, initial encounter (Primary Dx) Start: 11-16-2023 End: 11-16-2023 ambulatory [facility] Work Phone: Start: 11-16-2023 End: 11-16-2023 Patient encounter procedure [facility] Physician [facility] Work Phone: Start: 09-07-2023 End: 09-07-2023 ambulatory [facility] Start: 09-07-2023 End: 09-07-2023 Patient encounter procedure Elina Boyer [facility] Start: 08-04-2023 End: 08-04-2023 ambulatory [facility] Start: 08-04-2023 End: 08-04-2023 Patient encounter procedure Anna Hassan [facility] Start: 07-14-2023 End: 07-14-2023 Lab Drop off Castro Talal Sarmini [facility] Start: 07-14-2023 End: 07-14-2023 ambulatory Castro Talal Sarmini Facility:[facility] Start: 07-14-2023 End: 07-14-2023 ambulatory Castro Talal Sarmini Facility::[id number] Start: 05-19-2023 End: 05-19-2023 Patient encounter procedure Anna Hassan [facility] Start: 05-12-2023 End: 05-12-2023 Lab Drop off Matthew Carrasco [facility] Start: 02-18-2023 End: 02-18-2023 ambulatory Christina Montana Other [facility] Other Start: 02-18-2023 Office outpatient vi sit 15 minutes Christina Nan [facility] Start: 12-20-2022 End: 12-20-2022 ambulatory Christina Nan Other [facility] Other Start: 12-20-2022 Office outpatient vi sit 15 minutes Christina Nan [facility] Start: 12-01-2022 End: 12-01-2022 Patient encounter procedure Anna A Sonya [facility] Start: 11-17-2022 End: 11-17-2022 Patient encounter procedure Anna A Sonya [facility] Start: 07-18-2022 End: 07-18-2022 Patient encounter procedure Annasanto Casonmetz [facility] Start: 06-05-2022 Encounter for genera l adult medical examination without abnormal findings DR GERALD TAVARES [facility] Start: 06-04-2022 End: 06-05-[address] HERB MEDEL Facility:[facility] Start: 06-04-2022 End: 06-05-2022 Encounter for general adult medical examination without abnormal findings DR GERALD TAVARES Facility:[facility] Start: 05-30-2022 End: 05-30-[address] LIZBETH TANG Facility:[facility] Start: 01-22-2022 End: 01-22-[address] GERALD TAVARES Facility:[facility] Start: 09-25-2021 End: 09-26-[address] DERIK LLOYD Facility: Start: 08-22-2021 (Procedure) Short Matteo Person [facility] Start: 08-22-2021 End: 08-22-2021 ambulatory Matteo Person Other [facility] Other Start: 08-12-2021 End: 08-12-2021 ambulatory Matteo Person Other [facility] Other Start: 08-12-2021 Telephone encounter Matteo Person [facility] Start: 07-30-2021 End: 07-30-2021 ambulatory Matteo Person Other [facility] Other Start: 07-30-2021 Telephone encounter Matteo Person [facility] Start: 07-26-2021 End: 07-26-2021 ambulatory Matteo Person Other [facility] Other Start: 07-26-2021 Office outpatient vi sit 25 minutes Matteosavita Person [facility] [place] Start: 12-01-2018 End: 12-02-2018 Patient encounter procedure LIZBETH FLEMING Facility:[facility] Start: 03-16-2018 End: 03-17-2018 Patient encounter procedure Tahir ANN [facility] Start: 02-18-2018 End: 02-18-2018 Patient encounter procedure [facility] Start: 02-16-2018 End: 02-17-2018 Patient encounter procedure Tahir PATEL [facility] Start: 02-15-2018 Patient encounter procedure [facility] Start: 02-15-2018 End: 02-15-2018 Patient encounter procedure [facility] Procedures Date Procedure Procedure Detail [...] Td Vaccines (2 - Td or Tdap) [facility] Start: 05-02-2031 Screening for malign ant neoplasm of colon [facility] Start: 04-27-2028 Screening for malign ant neoplasm of cervix [facility] Start: 05-24-2027 Screening for malign ant neoplasm of cervix Pap Smear [facility] Start: 04-27-2026 Screening for malign ant neoplasm of cervix Pap Smear [facility] Start: 07-13-2025 Adult BMI Screening Adult BMI Screen ing [facility] Start: 07-13-2025 Tobacco Screening Tobacco Screening [facility] Start: 06-29-2025 Adult BMI Screening Adult BMI Screen [facility] Start: 06-23-2025 Adult BMI Screening Adult BMI Screen ing [facility] Start: 06-23-2025 Tobacco Screening Tobacco Screening [facility] Start: 06-10-2025 Adult BMI Screening Adult BMI Screen ing [facility] Start: 06-10-2025 Tobacco Screening Tobacco Screening [facility] Start: 06-08-2025 Adult BMI Screening Adult BMI Screen ing [facility] Start: 12-19-2024 Influenza vaccination Influenz a Vaccine (Season Ended) [facility] Start: 08-16-2024 End: 08-16-2024 Patient encounter procedure 08/16/2024 3:30 PM EDT Office Visit [facility] [place] [address] [place] [address] Ubaldo Kaiser S, DO [address] [place] [address] Arrived [facility] [place] Comment on above: Arrived Start: 08-16-2024 End: [...] 2:30 PM EDT Office Visit Maggy Hernandez [facility] [address] [place] [address], [place] [address] Jeanette Tijerina PA [address] [facility] [place] [place] [address] Maggy Hernandez [facility] Start: 07-12-2024 End: 07-12-2024 Patient encounter procedure 07/12/2024 8:30 AM EDT Office Visit [facility] [address] [place] [phone] Herb Medel DO [address] [place] [address] [facility] Start: 07-06-2024 End: 07-06-2024 Patient encounter procedure 07/06/2024 1:30 PM EDT Office Visit Maggy Hernandez [facility] [address] [place] [phone] Jeanette Tijerina PA [address] [facility] [place] [address] Maggy Hernandez [facility] Start: 06-29-2024 End: 06-29-2024 Patient encounter procedure 06/29/2024 3:00 PM EDT Office Visit Maggy Hernandez [facility] [address] [place] [address], [place] [address] Jeanette Tijerina PA [address] [facility] [place] [address] Maggy [facility] Start: 06-23-2024 End: 06-23-2024 Admission to same day surgery center 06/23/2024 7:30 AM EST - 06/23/2024 9:15 AM EST Surgery [facility] [address] [place] [phone] [place] [address] [place] [address], [address] [place] [address] EXCISION CYST BARTHOLIN [81805 (CPT )] [facility] Comment on above: EXCISION CYST BARTHO RUBI [97623 (CPT )] Start: 06-23-2024 End: 06-23-2024 Exc bartholins gland/cyst EXCISION CYST BARTHOLIN Abscess of Bartholin gland 06/23/2024 7:30 AM EST [facility] Start: 06-23-2024 Subsequent hospital visit by physician 06/23/2024 7:30 AM EST Hospital Encounter [facility] [address] [place] [phone] Daniel Gold MD [address] [place] [address], [address] [place] [address] [facility] Start: 06-21-2024 End: 06-21-2024 Patient encounter procedure 06/21/2024 2:00 PM EST [facility] [address] [place] [address] Ubaldo Kaiser, DO [address] [place] [address] [facility] Start: 06-21-2024 End: 06-21-2026 US Heart Transthoracic Transthoracic Echo (TTE) Complete Echocardiography Routine Pulsatile tinnitus Expected: 06/21/2024 (Approximate), Expires: 06/21/2026 [facility] Work Phone: Comment on above: Expected: 06/21/2024 (Approximate), Expires: 06/21/2026 Start: 06-15-2024 End: 06-15-2024 Patient encounter procedure 06/15/2024 1:45 PM EST Office Visit [facility] [address] [place] [phone] Florence Howard, AUD [address] [place] [address] Arrived [facility] Comment on above: Arrived Start: 06-13-2024 End: 06-13-2024 Patient encounter procedure 06/13/2024 10:45 AM EST [facility] [address] [phone] Florence Howard, AUD [address] [place] [address] [facility] Start: 06-10-2024 End: 06-10-2024 Patient encounter procedure 06/10/2024 10:30 AM EST [facility] [address] [phone] [facility] Start: 06-09-2024 End: 06-09-2025 XR Chest PA and Lateral X-ray chest 2 views Imaging Routine Bartholin cyst Preop testing Expected: 06/09/2024, Expires: 06/09/2025 [facility] Comment on above: Expected: 06/09/2024 , [...] EST Office Visit [facility] [address] [place] [phone] Zeynep Barbour PA [address] [place], [place] [id number] Arrived [facility] Comment on above: Arrived Start: 05-02-2024 End: 05-02-2024 Patient encounter procedure 05/02/2024 9:00 AM EST Office Visit [facility] [address] [place] [phone] Herb Medel DO [address] [place], [place] [id number] [facility] Start: 12-20-2023 COVID-19 Vaccine ( season) COVID-19 Vaccine ( season) [facility] Start: 12-20-2023 Influenza vaccination N [facility] Start: 06-04-2023 Screening for malign ant neoplasm of breast Mammogram [facility] Start: 10-20-2019 Administration of varicella zoster vaccine Zoster (Shingles) Vaccine (1 of 2) [facility] Start: 10-20-1987 Adult BMI Follow Up Plan Adult BMI F ollow Up Plan [facility] Start: 1981 Depression Screening Depression Scre ening [facility] Start: 1981 Tobacco Screening Tobacco Screening [facility] Start: 1969 Screening for malign ant neoplasm of colon [facility] End: 06-09-2025 CBC W Auto Differential panel - Blood CBC with auto diff Lab Routine Bartholin cyst Preop testing 1 Occurrences starting 06/09/2024 until 06/09/2025 [facility] Work Phone: Comment on above: 1 Occurrences starti ng 06/09/2024 until 06/09/2025 End: 06-09-2025 Comprehensive metabolic 2000 panel - Serum or Plasma Comprehensive metabolic panel Lab Routine Bartholin cyst Preop testing 1 Occurrences starting 06/09/2024 until 06/09/2025 [facility] [place] [facility] Comment on above: 1 Occurrences starti ng 06/09/2024 until 06/09/2025 End: 06-09-2025 ECG 12 lead ECG 12 lead ECG Routine Bartholin cyst Preop testing 1 Occurrences starting 06/09/2024 until 06/09/2025 [facility] Comment on above: 1 Occurrences starti ng 06/09/2024 until 06/09/2025 THIN PREP TIS PAP AN D HR HPV DNA THIN PREP TIS PAP AND HR HPV DNA Pathology and Cytology Routine Well woman exam with routine gynecological exam Ordered: 05/24/2024 [facility] Comment on above: Ordered: 05/24/2024 [facility] Immunizations Immunization Date Immunization Notes Care Provider Fa cility 12-23-2023 tetanus toxoid, reduced diphtheria toxoid, and acellular pertussis vaccine, adsorbed Ben De Leon DO Work Phone: [facility] 03-18-2021 SARS-CoV-2 (COVID-19 ) mRNA BNT-162b2 vax Anna Hassan [facility] Comment on above: Result Comment: 2022: [id number] 05-14-2012 hepatitis A vaccine, adult dosage Anna Hassan [facility] 05-14-2012 hepatitis B vaccine, pediatric or pediatric/adolescent dosage Anna Hassan [facility] 04-05-2009 novel [id number], preservative-free, injectable Ubaldo Kiaser DO Work Phone: [facility] 04-05-2009 influenza virus vaccine, unspecified formulation Daniel Gold MD Work Phone: [facility] NEGATED: Highlighted row has not occurred!05-18-2023 influenza virus vaccine, unspecified formulation Anna Hassan [facility] NEGATED: Highlighted row has not occurred!04-24-2023 influenza virus vaccine, unspecified formulation Matthew Carrasco [facility] NEGATED: Highlighted row has not occurred!02-27-2021 influenza virus vaccine, unspecified formulation Anna Hassan [facility] Payers Date Payer Category Payer [facility] [id number] 2021 [facility] - O [id number] 2018 Unknown [id number] 1969 Unknown [id number] 2.16.840.1.064881.3.579. 2.647 1969 Unknown [id number] 2.16.840.1.874027.3.579. 2.593 1969 Unknown [id number] 2.16.840.1.308126.3.579. 2.593 1969 Unknown [id number] 2.16.840.1.176307.3.579. 2.593 1969 Unknown [id number] 2.16.840.1.308366.3.579. 2.593 1969 Unknown [id number] 2.16.840.1.114173.3.579. 2.593 1969 Unknown [id number] 2.16.840.1.267652.3.579. 2.128 1969 Unknown [id number] 2.16.840.1.606624.3.579. 2.1285 1969 Unknown [id number] 2.16.840.1.621333.3.579. 2.1285 1969 Unknown [id number] 2.16.840.1.965586.3.579. 2.1285 1969 Unknown [id number] 2.16.840.1.316614.3.579. 2.1285 1969 Unknown [id number] 2.16840.1.523737.3.579. 2.1285 1969 Unknown [id number] 2.0.1.991570.3.579. 2.1285 1969 Unknown [id number] 2.16840.1.108305.3.579. 2. 1969 Unknown [id number] 2.16840.1.763269.3.579. 2. 1969 Unknown [id number] 2.16840.1.365025.3.579. 2.72 1969 Unknown [id number] 2.16840.1.474163.3.579. 2.72 1969 Unknown [id number] 2.16.840.1.043574.3.579. 2.72 1969 Unknown [id number] 2.16.840.1.440882.3.579. 2.72 1969 Unknown [id number] 2.16.840.1.287978.3.579. 2.128 1969 Unknown [id number] 2.16.840.1.470721.3.579. 2.1285 1969 Unknown [id number] 2.16.840.1.250802.3.579. 2.9 1969 Unknown [id number] 2.16.840.1.981051.3.579. 2.9 1969 Unknown [id number] 2.16.840.1.346041.3.579. 2.9 1969 Unknown [id number] 2.16.840.1.586623.3.579. 2.9 1969 Unknown [id number] 2.16.840.1.421980.3.579. 2.1259 1959 [facility] [id number] 2.16.840.1.775025.19 Self-pay Self Pay [id number] Unknown [id number] Social History Date Type Detail Facility Start: 04-27-2023 End: 08-16-2024 Sex Assigned At [facility] Start: 05-02-2021 End: 06-21-2024 Tobacco smoking status Ex-smoker (finding) [facility] Comment on above: denies Tobacco smoking status Never [facility] Start: 1970 Sex Assigned At Female F [facility] Start: 11-15-2022 Tobacco smoking stat us MEIS Never smoked tobacco [facility] Start: 12-23-2023 End: 08-16-2024 Alcoholic beverage intake Lifetime non-drinker (finding) [facility] Start: 04-27-2023 End: 08-16-2024 History of Social function [facility] Start: 11-15-2022 Alcohol Comment caffeine: 1-2 cups/d ay [facility] Start: 11-10-2022 Gender identity Identifies as female gender (finding) [facility] Start: 04-20-1985 End: 04-20-2015 History of tobacco use Current smoker [facility] Start: 04-20-1985 End: 04-20-2015 History of tobacco use Cigarette Smoker [facility] Start: 10-04-2021 End: 06-10-2024 Tobacco use and exposure Smokeless tobacco non-user [facility] Start: 10-04-2021 End: 07-13-2024 Alcoholic beverage intake Ex-drinker (finding) [facility] Start: 1970 Sex assigned at Not on file P [facility] Start: 11-23-2014 Sex Female (finding) [facility] History of tobacco use Passive smoker Pro [facility] Functional Status Date Assessment Result Facility 12-29-2023 Functional Status N/A [facility] 08-04-2023 Functional Status N/A [facility] 05-19-2023 Functional Status N/A [facility] 11-17-2022 Functional Status N/A [facility] Clinical Notes 07-26-2021 to 08-16-2024 [...] 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/20/2024 726.0 LEFT [facility] [id number] DOI 07/29/12 Asthma Atypical nevi Austin's esophagus 06/20/2024 Bartholin cyst 06/08/2024 Bursitis of shoulder 06/30/2016 Cervical spondylosis with radiculopathy 06/20/2024 Colon polyp 06/20/2024 Dysphagia 06/20/2024 Full thickness rotator cuff tear 03/12/2014 840.6 LEFT, RECURRENT [facility] [id number] DOI 07/29/12 History of colon polyps 06/20/2024 History of diverticulitis 06/20/2024 History of repair of ACL 2005 History of shoulder surgery Irregular bowel habits 06/20/2024 Irregular Z line of esophagus 06/20/2024 Lumbar disc herniation 02/16/2018 Added automatically from request for surgery [id number] Lumbosacral disc herniation 06/20/2024 Osteoarthritis 06/20/2024 RLQ [...] Insecurity: No Food Insecurity (06/10/2024) Received from [facility] Hunger Screening Within the past 12 [...] help tolerate tinnitus. documented in this encounter [facility] 07-13-2024 History of Presen t illness Narrative [...] 06/23/2024 Performed by Daniel Gold MD at [facility] KNEE SURGERY Left 2008 meniscus SHOULDER SURGERY Left 7 total shoulder surgery, [id number] Past Medical History: Diagnosis Date Asthma Colon [...] May continue well woman care with primary major appliance assembly supervisor. Hematuria - patient deferred UA today. Explained [...] moisturizers and lubricants. Explained that moisturizers provide intermediate relief for vaginal dryness and are used [...] of lubricants include [place], Astroglide, Uberlube, Pjur, Iatan, Good Clean Love, and coconut oil. Discussed proper use, safety, potential side effects from moisturizers and lubricants. Samples of various lubricants were provided today as well. Discussed further management by her major appliance assembly supervisor and estrace vaginal cream as a secondary option if needed. She may also return to our team for sexual health concerns if needed. *The patient has a documented plan of care to address pain. All questions were answered to the patient's satisfaction. She is agreeable to this plan of care. *This note was completed using a voice athletic shoe designer system. Every effort was made to ensure accuracy. However, inadvertent computerized athletic shoe designer errors may be present. *An evaluation and [...] Posada 07/13/24 1033 [facility] History of Presen t illness Narrative Subjective: Tiera Wakefield is a 53 y.o. female who is s/p a excision of right bartholin's gland on 06/23/24. Pathology: pending Patient reports extensive pain and slight bleeding since her surgery. She states this is moderately controlled with ibuprofen. She ran out of [employer] which she states she was taking mostly [...] 06/23/2024 Performed by Daniel Gold MD at [facility] KNEE SURGERY Left 2008 meniscus SHOULDER SURGERY Left 7 total shoulder surgery, [id number] Past Medical History: Diagnosis Date Asthma Colon [...] regimen involving ibuprofen 2-3 times daily with [place] being used at night as needed. May also use ice packs for additional relief. Return to clinic in 2-3 weeks prior to returning to work. An OARRS report was pulled today and her risk score was 310. [place] was given #7, to be taken nightly [...] *This note was completed using a voice athletic shoe designer system. Every effort was made to ensure accuracy. However, inadvertent computerized athletic shoe designer errors may be present. .Total time spent was 20 minutes: Preparing to see the patient (e.g., review of tests) Performing a medically appropriate examination and/or evaluation Ordering medications, tests, or procedures Documenting clinical information in the electronic or other health record Care coordination (not separately reported) Jeanette Tijerina PA-C, RD, IF MAHSA Posada 06/29/24 1526 documented in this encounter [employer] 06-29-2024 Miscellaneous Notes Patient called in w/concerns [...] as serosanguineous like drainage. Spoke with JENNIFER eRid -- Okay with seeing patient today for a 1 week PO appointment in [place]. Offered patient 12:30 or 3:00 today with JENNIFER Reid. Patient agreeable to coming in at 3:00. Address for [place] office given to patient and call was ended. documented in this encounter [facility] 06-29-2024 Telephone encounter Note Patient called [...] for a 1 week PO appointment in [place]. Offered patient 12:30 or 3:00 today with JENNIFER Reid. Patient agreeable to coming in at 3:00. Address for [place] office given to patient and call was ended. [facility] 06-25-2024 Miscellaneous Notes Contract: 166 Had cyst and gland removed on 06/23 and she is still bleeding Contract: 166 Paged Resident to [facility] Resident called back and relayed info to call documented in this encounter [facility] 06-25-2024 Telephone encounter Note Contract: 166 Had cyst and gland removed on 06/23 and she is still bleeding [facility] 06-25-2024 Telephone encounter Note Contract: 166 Paged Resident to [facility] Resident called back and relayed info to call [facility] 06-21-2024 History of Presen t illness [...] 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/20/2024 726.0 LEFT [facility] [id number] DOI 07/29/12 Asthma (CMS/[facility]) Atypical nevi Austin's esophagus 06/20/2024 Bartholin cyst 06/08/2024 Bursitis of shoulder 06/30/2016 Cervical spondylosis with radiculopathy 06/20/2024 Colon polyp 06/20/2024 Dysphagia 06/20/2024 Full thickness rotator cuff tear 03/12/2014 840.6 LEFT, RECURRENT [facility] [id number] DOI 07/29/12 History of colon polyps 06/20/2024 History of diverticulitis 06/20/2024 History of repair of ACL 2005 History of shoulder surgery Irregular bowel habits 06/20/2024 Irregular Z line of esophagus 06/20/2024 Lumbar disc herniation 02/16/2018 Added automatically from request for surgery [id number] Lumbosacral disc herniation 06/20/2024 Osteoarthritis 06/20/2024 RLQ [...] Insecurity: No Food Insecurity (06/10/2024) Received from [facility] Within the past 12 [...] help tolerate tinnitus. documented in this encounter [facility] 06-15-2024 History of Presen t illness Narrative [...] sloping to a mild sensorineural hearing loss 5606-0736 Hz in the left ear. The right ear exhibited normal hearing 250-2000 Hz, sloping to a mild sensorineural hearing loss 2279-0995 Hz, returning to normal hearing at 8000 Hz. Speech Audiometry Right SRT = 15 dB and word discrimination score at 45 dBHL = 100% Left SRT = 15 dB and word discrimination score at 45 dBHL = 100% Tympanometry Normal tympanograms, bilaterally, indicating normal middle ear function Impressions: Dr. Kaiser 06-21-2024 documented in this encounter [facility] 06-10-2024 Instructions Eliana Soriano RN - 06/10/2024 10:30 AM EST Your surgery/procedure is scheduled at [facility] on 06/23/2024 at 7:30 am Arrival Time 5:30 am [facility] Address: [address] [place] [address], [address] [place] [address] in the Emergency Center Parking lot. Report to the front end architect in the Emergency/Surgery Registration lobby of the hospital. Notify your SURGEON if you develop any illness such as a cold, cough, fever, sore throat, vomiting or are hospitalized between now and your surgery. Please call Pre-Admission Clinic at [phone] if you have any questions prior to surgery. For questions the morning of surgery, call the Pre-op Department at [phone]. Medication Instructions (Do not stop your medications [...] [facility], please call [phone] ([phone]). Do not use lotions, creams, powders, perfume, make up, cologne or after-shaves day of surgery. Remove ALL jewelry including wedding rings, body piercings, hair extensions that contain metal, nail nigerien, make-up, and contact lens. You may brush your teeth the morning of surgery, but do not swallow the water. Wear your dentures and partial plates to the hospital (no adhesive). Shower the night the before. If applicable, use the CHG (chlorhexidine gluconate) soap or wipes. Please be advised, [facility] has transitioned to a cashless payment [...] RIGHTS AND RESPONSIBILITIES As a patient at [facility], you have the right to: Receive medical care and be informed of who is taking care of you Be treated with dignity and respect Have a family member/field representative of choice and your physician notified of your admission Receive information and actively participate in decisions about your care and treatment Refuse care, treatment and services Decide who may provide your support and speak for you Access hoahaoism and spiritual services Participate in ethical issues [...] of hospital charges and payment methods Patient/patient field representative responsibilities are to: Provide information about health [...] in clean clothes. documented in this encounter [facility] 06-10-2024 Miscellaneous Notes Pt had a one view CXR done on 04/30/2024 at [facility] that was received by fax and scanned into [employer]. Gina Alberts at Dr Gold's office was notified and will check with Dr Mehta and will let pt know if she has to go for a two view prior to surgery. documented in this encounter [facility] 06-10-2024 Nurse Note Pt had a one view CXR done on 04/30/2024 at [facility] that was received by fax and scanned into [employer]. Gina Alberts at Dr Gold's office was notified and will check with Dr Mehta and will let pt know if she has to go for a two view prior to surgery. [facility] 06-08-2024 History of Presen t illness [...] procedures Referring and communicating with other health director medicare sales (not separately reported) Documenting clinical information in the electronic or other health record Daniel Gold MD documented in this encounter [employer] 05-24-2024 History of Presen t illness Narrative [...] nursing note reviewed. Exam conducted with a dental appliance fixer present. Vitals: Estimated body mass index is [...] of: MAHSA Navarro documented in this encounter [facility] 12-29-2023 Hospital Discharg e instructions Patient Education [...] sitting or lying down. General instructions Take oscg-ado-nslpxea and prescription medicines only as told by [...] provider. Document Revised: 09/22/2022 Document Reviewed: 09/22/2022 [employer] Patient Education 2023 AkaRx. Follow Up Care 12/29/2023 20:01:29 With:GERALD TAVARES Address: [facility] [employer] [place] [id number] Business (1) When:Within 3 Day(s) [facility] 12-29-2023 Note ED Patient Education Note Orthopedics [...] or lying down. General instructions ? Take pbut-pwm-xltlfik and prescription medicines only as told by [...] provider. Document Revised: 09/22/2022 Document Reviewed: 09/22/2022 [employer] Patient Education ? 2023 AkaRx. [facility] 12-29-2023 Evaluation + Plan note Extrac maggie from: Title:ED Note Author:Manav Fisher DO Date :12/29/23 Contusion of knee (S80.00XA: Contusion of unspecified knee, initial encounter) Orders: XR Knee Complete 4+ Views Right Future Scheduled Tests Laboratory* Magnesium Level 08/04/23 * Vitamin B12 Level 08/04/23 [facility] 09-04-2024 History of Present illness Narrative* Yumiko [...] infection RTC for recheck. [id number]* Patient Instructions* Yumiko Ríos RN - 12/23/2023 9:30 AM EDT See progress note [id number] Hospital Discharge instructions Patient Education 08/04/2023 14:48:11 [...] drinks. ?Tomatoes and foods made with tomatoes. ?[place] or spicy foods. ?Chocolate and peppermint. Do not drink alcohol. General instructions Take szef-umi-ngcdzhi and prescription medicines only as told by [...] provider. Document Revised: 06/23/2020 Document Reviewed: 06/23/2020 [employer] Patient Education 2022 AkaRx. Follow Up Care 07/22/2023 13:53:31 With:Anna Hassan CNP Address: When:1 month [facility] 04-16-2024 Evaluation + Plan note Future Scheduled Tests Laboratory* Magnesium Level 08/04/23 * Vitamin B12 Level 08/04/23 [facility] 01-30-2024 Hospital Discharge instructions Patient [...] Follow these instructions at home: Medicines Take lscz-ajv-woiiuhr and prescription medicines only as told by [...] powder, vinegar, hot sauces, and barbecue sauce. ?[place] fruit juices and citrus fruits, such as oranges, zaynab, and limes. ?Tomato-based foods, such as red sauce, chili, salsa, and pizza with red sauce. ?Fried and fatty foods, such as donuts, arabic fries, potato chips, and high-fat dressings. ?High-fat [...] Document Reviewed: 10/15/2020 Elsevier Patient Education 2022 AkaRx. Follow Up Care 05/18/2023 11:08:33 With:Anna Hassan CNP Address: When:3 months [facility] 11-01-2023 Evaluation note* Encounter Date [...] otitis media with effusion (ICD-10 - H65.93) [facility] Other 09-02-2023 Evaluation note* Encounter Date Diagnosis [...] dermati tis home care material was printed [facility] Other 07-31-2023 Hospital Discharge instructions Patient Education [...] treated at home. Treatment may include: Taking rwkv-mdw-lllrwjb pain medicines. Following a clear liquid diet. [...] Follow these instructions at home: Medicines Take ixzy-dkk-uyafcmm and prescription medicines only as told by [...] provider. Document Revised: 01/16/2020 Document Reviewed: 01/16/2020 [employer] Patient Education 2022 [facility] Follow Up Care 10/15/2022 08:09:26 With:Anna Hassan CNP Address: When:1 month [facility] 07-31-2023 Evaluation + Plan note Future Scheduled Tests Radiology* CT Abdomen/Pelvis w/ Contrast 11/17/22 [facility] 02-10-2023 NotePROCEDURE: XR ANKLE RT [...] Electronically authenticated by: LIZBETH TANG Date: 2022-05-30 13:52[facility]02-10-2023 NotePROCEDURE: XR ANKLE RT MIN [...] Electronically authenticated by: LIZBETH TANG Date: 2022-05-30 13:52[facility]04-08-2022 Evaluation note* Encounter Date Diagnosis [...] - G89.29) Continue with current treatment plan. [facility] Other evaluation + Plan note No data available for this section [facility] evaluation + Plan note Future Appointments Appointment Date:09/07/2023 03:15:00 PM Scheduled Provider:Elina Boyer MD Location:[facility] Appointment Type:[facility] Follow Up Future Scheduled Tests Laboratory* Magnesium Level 08/04/23 * Vitamin B12 Level 08/04/23 [facility] evaluation noteNo InformationNort [employer] Other evaluation note* Diagnosis Onset Date Resolution Status Contact dermatitis [facility] Work Phone: evaluation note* Diagnosis Puncture wound [...] of Bartholin's gland [facility] Diagnosis Bartholin cyst- Primary Cyst of Bartholin's gland Preop testing Unspecified pre-operative examination Abscess of Bartholin gland [facility] Diagnosis Bartholin cyst Cyst of Bartholin's gland Preop testing Unspecified pre-operative examination Abscess of Bartholin gland [facility]* Diagnosis Sensorineural hearing loss, bilateral- Primary Right-sided tinnitus Unspecified tinnitus documented in this encounter [facility]* Diagnosis Sensorineural hearing loss (SNHL) of right ear, unspecified hearing status on contralateral side- Primary Pulsatile tinnitus Tinnitus, unspecified laterality documented in this encounter [facility] Healthcare[facility] note* Diagnosis Encounter for postoperative care- Primary Post-op pain Other acute postoperative pain [facility] Diagnosis Encounter for postoperative care- Primary Dyspareunia, female documented [facility]* Diagnosis Family history of aneurysm- Primary Family history of other condition Pulsatile tinnitus Sensorineural hearing loss (SNHL) of right ear, unspecified hearing status on contralateral side documented in this encounter [facility] HealthcareHistory general Narrative - Reported* Type Description Date Medical History Left rotator cuff Medical History Asthma Medical History GERD Surgical History 6 left shoulder surgeries Surgical History Left rotator cuff, x5 Surgical History Left knee Surgical History Left knee, torn ACL and meniscu s Surgical History Gallbladder Surgical History Lap Cholecystectomy Surgical History nerve block Hospitalization History See Above [facility] Other Hospital Discharge instructions No data available for this section [facility] InstructionsNot on filedocumented in this encounter [facility] filedocumented in this encounter [facility] on filedocumented in this encounter [facility] on filedocumented in this encounter [facility] on filedocumented in this encounter [facility] No data available for this section [facility] Summary Purpose Family History No [...] section and content) DATE CREATED AUTHOR 03/22/2018 [facility] DATE CREATED AUTHOR AUTHOR'S ORGANIZ ATION 03/27/2018 [facility] DATE CREATED AUTHOR AUTHOR'S ORGANIZ ATION 03/27/2018 [facility] DATE CREATED AUTHOR AUTHOR'S ORGANIZ ATION 03/07/2019 [facility] DATE CREATED AUTHOR AUTHOR'S ORGANIZ ATION 07/30/2021 [facility] DATE CREATED AUTHOR AUTHOR'S ORGANIZ ATION 06/05/2022 [facility] DATE CREATED AUTHOR AUTHOR'S ORGANIZ ATION 06/13/2024 [facility] DATE CREATED AUTHOR AUTHOR'S ORGANIZ ATION 07/03/2024 [facility] DATE CREATED AUTHOR AUTHOR'S ORGANIZ ATION 07/10/2024 [facility] DATE CREATED AUTHOR AUTHOR'S ORGANIZ ATION 07/14/2024 [facility] DATE CREATED AUTHOR AUTHOR'S ORGANIZ ATION 08/18/2024 [facility] Specialists EPIC REASON FOR VISIT [...] November 16, 2023 End: November 16, 2023 Lawn Mower Relationship Specialty Start Date End Date Unallocated, [place] [address] PCP - General Family Medicine 06/19/23 Lawn Mower Relationship Specialty Start Date End Date Unallocated, MD Marleen Elliott [facility] [place] [address] PCP - General Family Medicine 06/19/23 Lawn Mower Relationship Specialty Start Date End Date Unallocated, Holly Watt MD [facility] [place] [address] PCP - General Family Medicine 06/19/23 Lawn Mower Relationship Specialty Start Date End Date Unallocated, Holly Watt MD [address] [place], [place] [address] [address] PCP - General Family Medicine 06/19/23 Lawn Mower Relationship Specialty Start Date End Date Gerald Tavares DO [address] [place] [address] PCP - General Family Medicine 09/26/21 Lawn Mower Relationship Specialty Start Date End Date Gerald Tavares DO [address] [place] [address] PCP - General Family Medicine 09/26/21 Lawn Mower Relationship Specialty Start Date End Date Gerald Tavares DO [address] [place] [id number] PCP - General Family Medicine 09/26/21 Lawn Mower Relationship Specialty Start Date End Date Unallocated, Holly Watt MD [facility] [place] [address] PCP - General Family Medicine 06/19/23 Lawn Mower Relationship Specialty Start Date End Date Unallocated, Holly Watt MD [address] [place], [place] [address] [address] PCP - General Family Medicine 06/19/23 Lawn Mower Relationship Specialty Start Date End Date Unallocated, Holly Watt MD [facility] [place] [address] PCP - General Family Medicine 06/19/23 Lawn Mower Relationship Specialty Start Date End Date Unallocated, Holly Watt MD [address] [place] [id number] PCP - General Family Medicine 06/19/23 Lawn Mower Relationship Specialty Start Date End Date Gerald Tavares DO [address] [place] [id number] PCP - General Family Medicine 09/26/21 Lawn Mower Relationship Specialty Start Date End Date Gerald Tavares DO [address] [place] [id number] PCP - General Family Medicine 09/26/21 Lawn Mower Relationship Specialty Start Date End Date Unallocated, Holly Watt MD [address] [place] [address] PCP - General Family Medicine 06/19/23 Gerald Tavares MD [address] [place] [id number] Referring Physician Family Medicine 08/16/24 Ubaldo Kaiser DO [address] [facility] [place] [address] Otolaryngology 08/16/24 Lawn Mower Relationship Specialty Start Date End Date Unallocated, Holly Watt MD [address] [place] [id number] PCP - General Family Medicine 06/19/23 Gerald Tavares MD [address] [place] [id number] Referring Physician Family Medicine 08/16/24 Ubaldo Kaiser DO [address] [place] [address] Otolaryngology 08/16/24 Goals (unrecognized section and content) [...] BE BASED ON THE PRIMARY CLINICAL RECORDS. [facility] provides no warranty or guarantee of the accuracy or completeness of information in this document.
[2024-09-22 10:02] LABS: Basophils Absolute Auto 0.1 10^3/uL (0.0-0.1); Basophils Percent Auto 1.1 % (0.2-2.0); Eosinophils Absolute Auto 0.2 10^3/uL (0.0-0.7); Eosinophils Percent Auto 4.7 % (0.9-7.0); Hematocrit 43.6 % (36.0-48.0); Hemoglobin 15.3 g/dL (12.0-16.0); Immature Granulocytes Abs Auto 0.02 10^3/uL (0.00-0.03); Immature Granulocytes Pct Auto 0.4 % (0.0-0.5); Lymphocytes Percent Auto 41.9 % (20.5-60.0); Mean Corpuscular HGB Conc 35.1 g/dL (29.9-35.2); Mean Corpuscular Hemoglobin 30.4 pg (26.7-34.0); Mean Corpuscular Volume 86.7 fL (81.0-99.0); Mean Platelet Volume 9.1 fL (9.5-13.5); Monocytes Absolute Auto 0.4 10^3/uL (0.3-0.8); Monocytes Percent Auto 8.5 % (1.7-12.0); Neutrophils Percent Auto 43.4 % (43.0-75.0); Platelet Count 279 10^3/uL (150-450); Red Blood Count 5.03 10^6/uL (4.20-5.40); Red Cell Distribution Width 11.9 % (11.0-15.0); White Blood Count 4.7 10^3/uL (4.0-11.0)
[2024-09-22 11:06] LABS: Alanine Aminotransferase 45 U/L (14-59); Albumin Globulin Ratio 1.1; Albumin Level 3.9 g/dL (3.4-5.0); Alkaline Phosphatase 66 U/L (46-116); Anion Gap 13.1; Aspartate Amino Transferase 26 U/L (15-37); BUN Creatinine Ratio 17.9; Bilirubin Total 0.7 mg/dL (0.2-1.0); Calcium 9.7 mg/dL (8.5-10.1); Carbon Dioxide 29.1 mmol/L (21.0-32.0); Chloride 103 mmol/L (98-107); Chol HDL Ratio 3.3; Cholesterol 166 mg/dL (<=200); Estimated GFR (African America >60 (>=60 mL/min/1.73m^2); Estimated GFR (Non-African Ame >60 (>=60 mL/min/1.73m^2); Globulin 3.5 g/dL; Glucose 92 mg/dL (74-106); HDL Cholesterol 51 mg/dL (40-60); LDL Cholesterol Calculated 96.8 mg/dL; Potassium 4.2 mmol/L (3.5-5.1); Sodium 141 mmol/L (136-145); Total Protein 7.4 g/dL (6.4-8.2); Triglycerides 91 mg/dL (<=150); VLDL CHOLESTEROL 18.2 mg/dL
== END 2024-09-22 09:43 | disposition home or self-care (01) ==
LOC: LAB 09:45
PROVIDERS: PCP Family Medicine; Visit Provider Family Medicine
DX: Z00.00 Encounter for general adult medical examination without abnormal findings (principal)
CPT/HCPCS: 36415; 80053; 80061; 85025

== ENCOUNTER 2024-09-23 03:58 | Emergency (ER) | payer BC, SELFPAY ==
--- OUTSIDE RECORDS SUMMARY | 2024-05-20 04:45 | XMS_ITS ---
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 Name Role Phone Gerald Tavares Primary Care Provider [phone] Allergies No Known Allergies REASON FOR VISIT semiglutide-[id number] Medications Medication SIG (Take, Route, Frequency, Duration) [...] every 4 hrs 07/16/2022 Active Vital Signs Weight 164 lbs 05/20/2024 Height 63 in 05/20/2024 BMI 29.05 kg/m2 05/20/2024 Encounters Encounter Location Date Provider Diagnosis [facility] [address] [place] [address] 05/20/2024 Gerald Tavares Abnormal weight gain R63.5 ; Overweight E66.3 and Body mass index [BMI] 29.0-29.9, adult Z68.29 Assessments Encounter Date Diagnosis (ICD Code) Assessment Notes Treatment Notes Treatment Clinical Notes Section Notes 05/20/2024 Abnormal weight gain (ICD-10 - R63.5) diet/exercise rtc 1 month we will send in semiglutide to [facility] in [place] 05/20/2024 Overweight (ICD-10 - E66.3) diet/exercise 05/20/2024 Body mass index [BMI] 29.0-29.9, adult (ICD-10 - Z68.29) Plan Of Treatment Treatment Notes Assessment Notes Abnormal weight gain diet/exercise rtc 1 month we will send in semiglutide to [facility] in [place] Overweight diet/exercise Next Appt Details Provider Name:Gerald loco, 09/26/2024 01:15:00 PM, [address] [place], [address], Progress Notes * Lizzette MACIASDOB:1970 (53 yo F)Acc No.[id number]:05/20/2024 TeleMed via [employer] Patient: Lizzette VOGT Provider: Sushma Tavares DO :1970 A ge:53 Y S ex:Female Date:05/20/2024 Address:[address] [place], [place] [id number] Check Out:09:45 AM EST Subjective: * Chief Complaints: * S emiglutide-[id number] * HPI: G eneral: pt was on [...] interactive audio and video telecommunications system called: [email or web address] Patient is attending the TeleHealth encounter from [...] 05/20/2024 Generated for Todd loco/Shakila/Fouzia on: 0 09/23/2024 04:08 AM EDT History and Physical Notes * [...]
--- OUTSIDE RECORDS SUMMARY | 2024-07-29 07:30 | XMS_ITS ---
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 Name Role Phone Tavares Gerald Primary Care Provider Allergies No Known Allergies REASON FOR VISIT sick, text link to [phone] Medications Medication SIG (Take, Route, Frequency, Duration) Notes Start Date End Date Status Famotidine 20 MG 1 tablet at bedtime as needed Orally Once a day 09/24/2023 Unknown NexIUM 40 MG 1 capsule Orally daily Unknown tiZANidine HCl 4 MG 1 tablet Orally qhs for 30 days 02/04/2024 Unknown HYDROcodone-Acetaminophen 5-325 MG 1 tablet as needed Orally tid for 7 days 04/18/2024 Active Ondansetron HCl 4 MG 1 tablet Orally tid prn N/V for 30 days 02/04/2024 Active Zithromax Z-Lon 250 MG as directed Orall y for 5 days 07/29/2024 Active Albuterol Sulfate HFA 108 (90 Base) MCG/ACT 2 puffs as needed Inhalation every 4 hrs 07/16/2022 Active Citalopram Hydrobromide 20 MG 1 tablet Orally Once a day for 90 days 11/19/2022 Active Esomeprazole Magnesium 40 MG 1 tablet Orally daily for 90 days 02/04/2024 Active traMADol HCl 50 MG 1 tablet as needed Orally tid for 7 days 09/04/2022 Unknown Celecoxib 200 MG 1 capsule with food Orally Once a day for 30 days 09/03/2022 Unknown Citalopram Hydrobromide 40 mg 1 tablet Orally Once a day for 90 days Unknown Fiber Unknown Methocarbamol 750 MG 1 tablet Orally bid prn neck pain for 30 days 06/04/2022 Unknown Ondansetron HCl 4 MG 1 tablet Orally bid prn N/V for 30 days 09/04/2022 Unknown B Complex Unknown Calcium Unknown predniSONE 50 MG 1 tablet with food o r milk Orally Once a day for 5 days 07/29/2024 Active Encounters Encounter Location Date Provider Diagnosis [facility] [address] [place] [address] 07/29/2024 Gerald Tavares Acute bronchitis, unspecified J20.9 Assessments Encounter Date Diagnosis (ICD Code) Assessment Notes Treatment Notes Treatment Clinical Notes Section Notes 07/29/2024 Acute bronchitis, unspecified (ICD-10 - J20.9) cxr if not better rtc prn Plan Of Treatment Medication Medication Name Sig Start Date Stop Date Notes Zithromax Z-Lon 250 MG as directed Orally for 5 days 07/29 predniSONE 50 MG 1 tablet with food o r milk Orally Once a day for 5 days 07/29/2024 Treatment Notes Assessment Notes Acute bronchitis, unspecified cxr if not better rtc prn Next Appt Details Provider Name:Gerald loco, 09/26/2024 01:15:00 PM, [address] [place], [address], Progress Notes * Tiera MACIASDOB: 0 (53 yo F)Acc No.[id number]:07/29/2024 TeleMed via Doxy Patient: Love DUQUE Tiera Provider: Sushma Tavares DO :1970 A ge:53 Y S ex:Female Date:07/29/2024 Address:[address] [place], [place] [id number] Subjective: * Chief Complaints: * S ick, text link to [phone] * HPI: G eneral: +cough - phlegm no rhinorrhea no sinus TY no f/c no sore throat no ear pain mild SOB no wheeze +otc cold meds no rashes no V/D no c/o - - - - - - -- pt saw ENT for wooshing in ear they sent her for echo at [facility] - - - - - - - - - - - The patient verbally consented to a TeleHealth encounter and the potential risks involved with a TeleHealth visit (clinical aspects, security considerations, and confidentiality of information) were discussed with the patient. The patient encounter was conducted using a synchronous audio-visual interactive audio and video telecommunications system called: [email or web address] Patient is attending the TeleHealth encounter from home. Patient was the only one present in the room The provider is attending the TeleHealth encounter from their office. Total Time spent during the encounter: 7 min. * Active Problem List G89.29 Other chronic pain Modified On:06/04/2022 Status:confirmed F32.5 Major depressive dis order with single episode, in full remission Modified On:05/17/2023 Status:confirmed K21.9 Gastroesophageal ref lux disease without esophagitis Modified On:05/17/2023 Status:confirmed M47.816 Spondylosis without myelopathy or radiculopathy, lumbar region Modified On:06/18/2023U Status:confirmed R20.2 Paresthesia of skin Modified On:09/04/2022 Status:confirmed K57.92 Diverticulitis of in testine, part unspecified, without perforation or abscess without bleeding Modified On:11/19/2022 Status:confirmed Z86.010 Personal history of colonic polyps Modified On:06/18/2023 Status:confirmed H93.11 Tinnitus, right ear Modified On:06/18/2023U Status:confirmed K21.00 Gastro-esophageal re flux disease with esophagitis, without bleeding Modified On:06/18/2023U Status:confirmed K57.30 Diverticulosis of la rge intestine without perforation or abscess without bleeding Modified On:06/18/2023U Status:confirmed M50.30 Other cervical disc degeneration, unspecified cervical region Modified On:09/24/2023U Status:confirmed E66.3 Overweight Modified On:04/21/2024U Status:confirmed J45.20 Mild intermittent as thma, uncomplicated Modified On:01/02/2025W/U Status:confirmed F51.01 Primary insomnia Modified On:04/21/2024W/U Status:confirmed * Medical History: * Surgical History: L knee scope L shoulder surgery x 6 ryanne - 2011 EGD - 2019 +esophagitis colonoscopy - 2019 +polyp EGD - 05/12/23 +HH/esophagitis/?barretts colonoscopy - 05/12/2023 +3 polyps, int/ext hem, +diverticulosis * Hospitalization/Major Diagno stic Procedure: * Family History: F ather: alive, cad. M other: . * Social History: H ousehold: H ousehold [...] Allergies: N .K.D.A.no[Allergies Verified] Objective: * Vitals: * Examination: G eneral Examination:: GENERAL APPEARANCE: [...] normal affect. Assessment: * Assessment: 1. A cute bronchitis, unspecified - J20.9 (Primary) Plan: * Treatment: * Procedure Codes: * * Sign off status: Completed Visit Status: P EN (Pending) true * Provider: Sushma Tavares DO Date: 0 07/29/2024 Generated for Todd loco/Shakila/Fouzia on: 0 09/23/2024 [...]
[2024-09-23] VITALS (24 sets, daily range): BP systolic 121–143; BP diastolic 79–90; PULSE 61–117; TEMP 36.7; O2SAT 93–99; BMI 33.0
--- OUTSIDE RECORDS SUMMARY | 2024-09-23 04:08 | XMS_ITS | Patient Health Record ---
Author Organization [facility] in [place] Address [address] [place] [address] Care Team Providers Care Security Police Officer Name Role Phone Gerald Tavares Primary Care Provider Allergies No Known Allergies Reason For Referral Reason eval and treat Diagnosis 1 Other cervical disc degeneration, unspecified cervical region (M50.30) Referral Organization [facility] Referring Provider First Name Gerald Referring Provider Last Name Chaitanya Referring Provider Speciality [facility] noel Referred Provider Specialty Physical The rapist Referral Priority Routine Reason tinitus Diagnosis 1 Tinnitus, right ear (H93.11) Referral Organization [facility] Referring Provider First Name Gerald Referring Provider Last Name Chaitanya Referring Provider [facility] noel Referred Provider Ubaldo Mendoza Referred Provider [...] Problem Status W/U Status Risk Notes Problem 221824370 Overweight (E66.3) Active confirmed Problem 1840255 Primary insomnia (F51.01) Active confirmed Problem 40179842 Other chronic pa in (G89.29) Active confirmed Problem 3105914673991 Tinnitus, right ear (H93.11) Active confirmed Problem 328298088 Mild intermitten t asthma, uncomplicated (J45.20) Active confirmed Problem 009656055 Diverticulosis o f large intestine without perforation or abscess without bleeding (K57.30) Active confirmed Problem 871148964 Diverticulitis o f intestine, part unspecified, without perforation or abscess without bleeding (K57.92) Active confirmed Problem 117460229 Spondylosis with out myelopathy or radiculopathy, lumbar region (M47.816) Active confirmed Problem 10838364 Other cervical d isc degeneration, unspecified cervical region (M50.30) Active confirmed Problem 169511584 Paresthesia of s kin (R20.2) Active confirmed Problem 397388956 Personal history of colonic polyps (Z86.010) Active confirmed Problem 327460473 Gastroesophageal reflux disease without esophagitis (K21.9) Active confirmed Problem 64323039 Major depressive disorder with single episode, in full remission (F32.5) Active confirmed Problem 612330932 Gastro-esophagea l reflux disease with esophagitis, without bleeding (K21.00) Active confirmed Vital Signs Heart Rate 57 /min 04/18/2024 Respiratory Rate 16 /min 04/18/2024 Oximetry 98 % 04/18/2024 Blood pressure diastolic 88 mm Hg 04/18/2024 Height 63 in 05/20/2024 Blood pressure systolic 118 mm Hg 04/18/2024 Weight 164 lbs 05/20/2024 BMI 29.05 kg/m2 05/20/2024 Encounters Encounter Location Date Provider Diagnosis [address] [place] [address] 04/18/2024 Gerald Tavares Other cervical disc degeneration, unspecified cervical region M50.30 ; Tinnitus, right ear H93.11 ; Overweight E66.3 ; Body mass index [BMI] 29.0-29.9, adult Z68.29 ; Mild intermittent asthma, uncomplicated J45.20 and Primary insomnia F51.[address] [address] 09/24/2023 Gerald [facility] Quality Programs Department [address] [place] [address] 09/29/2023 Gerald Tavares [address] [address] 10/07/2023 Gerald Tavares [address] [address] 10/09/2023 Gerald Tavares Other cervical disc degeneration, unspecified cervical region M50.[address] [address] 09/21/2024 Gerald Tavares Encounter for genera l adult medical examination without abnormal findings Z00.00 [address] [place] [address] 09/24/2023 Gerald Tavares Other cervical disc degeneration, unspecified cervical region M50.30 [address] [place] [address] 11/04/2023 Gerald Tavares Abnormal weight gain R63.5 ; Overweight E66.3 and Body mass index [BMI] 29.0-29.9, adult Z68.[address] [address] 02/04/2024 Gerald Tavares Other cervical disc degeneration, unspecified cervical region M50.30 ; Major depressive disorder with single episode, in full remission F32.5 ; Gastroesophageal reflux disease without esophagitis K21.9 ; Other chronic pain G89.29 and Headache, unspecified R51.[address] [address] 05/20/2024 Gerald Tavares Abnormal weight gain R63.5 ; Overweight E66.3 and Body mass index [BMI] 29.0-29.9, adult Z68.[address] [address] 07/29/2024 Gerald Tavares Acute bronchitis, unspecified J20.9 Assessments Encounter Date Diagnosis (ICD Code) Assessment Notes Treatment Notes Treatment Clinical Notes Section Notes 09/24/2023 Other cervical disc degeneration, unspecified cervical region (ICD-10 - M50.30) continue robaxin oarrs ok erx norco prn PT if not better 11/04/2023 Abnormal weight gain (ICD-10 - R63.5) diet/exercise send semiglutide to [facility] - 1 month of starter dose then she will do the next dose rtc 2 months 11/04/2023 Overweight (ICD-10 - E66.3) diet/exercise 02/04/2024 Other cervical disc degeneration, unspecified cervical region (ICD-10 - M50.30) erx zanaflex [facility] note for work 02/04/2024 Major depressive disorder [...] month we will send in semiglutide to [facility] in [place] 05/20/2024 Overweight (ICD-10 - E66.3) diet/exercise 05/20/2024 [...] Castillo claudy, 09/26/2024 01:15:00 PM, [address] [place], [address], Insurance Providers Payer Name Payer Address Payer Phone Subscriber Number Group Number Insured Name Patient Relationship to Insured Coverage Start Date Coverage End Date [employer] PPO PLUS LOCAL PLAN [address] [place] [address] [phone] [id number] [place] Self - patient is the insured 3 Medical (General) History Medical History History ICD Code C DDD L DDD GERD HH YAYO asthma colon polyp urinary incontinence diverticulosis - flare up in 09/[address] - nonobstructing osteopenia esophagitis int/ext hemorrhoids Surgical History Surgery Date(Month/Year) colonoscopy - 05/12/2023 +3 polyps, int/e xt hem, +diverticulosis EGD - 05/12/23 +HH/esophagitis/?barretts colonoscopy - 2019 +polyp EGD - 2019 +esophagitis ryanne - 2011 L shoulder surgery x 6 L knee scope
--- OUTSIDE RECORDS SUMMARY | 2024-09-23 04:08 | XMS_ITS | Clinical Summary ---
Author Organization [facility] Address [address] [place] [address] Care Team Providers Care Motion Picture Scene Builder Name Role Phone Unallocated, Noms Provider MD Primary Care Provi jarrett Gerald Singh MD Unavailable [phone] Ubaldo Mendoza DO Unavailable [phone] Allergies No known active allergies Medications citalopram [...] shoulder 06/20/2024 06/20/2024 Overview (06/20/2024): 726.0 LEFT [facility] [id number] DOI 07/29/12 Ellison's esophagus 06/20/2024 06/21/19 Colon [...] (06/20/2024): Added automatically from request for surgery [id number] Bursitis of shoulder 06/30/2016 025 Full thickness rotator cuff tear 03/12/2014 06/20/2024 Overview (06/20/2024): 840.6 LEFT, RECURRENT [facility] [id number] DOI 07/29/12 Acute gastric ulcer 03/10/2014 06/21/19 25 Encounters Date Type Department Care Team Description 08/16/2024 3:30 PM EDT Office Visit [facility] [address] [place] [address] Ubaldo Mendoza, Family history of aneurysm (Primary Dx); Pulsatile tinnitus; Sensorineural hearing loss (SNHL) of right ear, unspecified hearing status on contralateral side 08/16/2024 Bamboo flowsheet [facility] [address] [place] [address] Ubaldo Mendoza DO 08/16/2024 Travel from Last 3 Months Immunizations Immunization Administration Dates Next Due Hep A, Adult 05/14/2012 Hep B, Adolescent or Pediatric 05/14/2012 Novel [id number], preservative-free 04/05 Tdap 12/23/2023 Family History Medical [...] ORDERABLES Final Re sult Performing Organization Address City/[facility]/ZIP Co de Phone Number EXTERNAL LAB * Bilateral screening mammogram with tomosynthesis (06/04/2022) Anatomical Region Laterality Modality Breast Bilateral Mammography Narrative 06/04/2022 12:00 AM EST PERFORMED AT [facility] LOCATION:[address] Patient: COLLEEN Biswas Exam Date: 06/04/2022 : 1970 Gender:F Ordering : DR YANELY MEDEL . Admission #: [id number] Family : DR GERALD SINGH D.O. Order #: [id number] CLICK HERE TO VIEW EXAM RADIOLOGY REPORT [...] kidney cancer at age 64. LOCATION: The BREAST COMPOSITION: Heterogeneously dense which may obscure [...] Note CONVERSION, GENERIC - 10/24/2022 PERFORMED AT [facility] LOCATION:[address] Patient: COLLEEN Jones. Exam Date: 06/04/2022 : 1970 Gender:F Ordering : DR YANELY MEDEL . Admission #: [id number] Family : DR GERALD SINGH D.O. Order #: [id number] CLICK HERE TO VIEW EXAM RADIOLOGY REPORT [...] kidney cancer at age 64. LOCATION: The BREAST COMPOSITION: Heterogeneously dense which may obscure [...] Most Recently Relevant to Health Maintenance Insurance [facility] Care Teams Motion Picture Scene Builder Relationship Specialty Start Date End Date Unallocated, Noms MD Shukri [address] [place] [address] PCP - General Family Medicine 06/19/23 Gerald Singh MD [address] [place] [id number] Referring Physician Family Medicine 08/16/24 Ubaldo Mendoza DO [address] [place] [address] Otolaryngology 08/16/24
--- OUTSIDE RECORDS SUMMARY | 2024-09-23 04:08 | XMS_ITS | CCD ---
Author Organization [facility] Care Team Providers Care Utility Supervisor [employer] Name Role Phone ZORAIDA ALMANZAR Unavailable Unavailable ZORAIDA ALMANZAR Unavailable Unavailable Tahir ANN Unavailable Unavailable ZORAIDA ALMANZAR Unavailable Unavailable SETH R AMANDA Unavailable Unavailable ZORAIDA ALMANZAR Unavailable Unavailable ZORAIDA ALMANZAR Unavailable Unavailable ZORAIDA ALMANZAR Unavailable Unavailable LIZBETH FLEMING Admitting Unavailable LIZBETH FLEMING Attending Unavailable SELF, REFERRED Referring Unavailable GERALD TAVARES Primary Care Unavailable MA Procedure Practitioner Unavailab LIZBETH James Surgeon Unavailable MA Procedure Practitioner Unavailab EDISON Erwin Surgeon Unavailable [...] FRANK CORDON Consulting Unavailable TAVARES, DR GERALD Joens Primary Care Unavailable REGINE, DR [place] Admitting [...] ble Tavares Gerald MATHEW Primary Care Provider [phone] JAENETTE TIJERINA Attending Unavailable TAVARES, GERALD Jones Referring [...] Aspirin; Translations: [ASPIRIN] Drug Allergy 4 rash [facility] Other [place] Repository (1 source) No Known Medication Allergies; Translations: [No Known Medication Allergies] Propensity to adverse reactions (disorder) [facility] Repository Medications Current Medications Medication Drug [...] 12 tablet 06/23/2024 06/26/2024 Active Start: 05-06-2018 [place] 325 mg-5 mg oral tablet 1 tab(s), Oral, q6hr for pain, 8 tab(s), Refill(s) 0 Start Date: 05/06/18 Status: Ordered [id number] 200 actuat albuterol 0.09 mg/actuat metered dose [...] day(s), # 90 cap(s), Refills(s) 0, [facility]acy: [facility], 160, cm, 04/27/23 12:36:00 EST, Height/Length Dosing, 74.2, kg, 04/27/23 12:36:00 EST, Weight Dosing Start Date: 04/27/23 Stop Date: 07/26/23 Status: Ordered Start: 01-18-2020 take 1 capsule by [facility] once daily Nexium 40 mg Cap-EC 40 mg = 1 cap(s), Oral, Daily, # 30 cap(s), Refills(s) 0, [facility]: [facility], 160, cm, 01/18/20 8:13:00 EDT, Height/Length [...] day(s), # 90 tab(s), Refills(s) 1, Pharmacy: [facility], 160, cm, 08/04/23 14:50:00 EDT, Height/Length Dosing, 75.6, kg, 08/04/23 14:50:00 EDT, Weight Dosing Start Date: 08/04/23 Stop Date: 01/31/24 Status: Ordered Start: 01-18-2020 take 1 tablet by saray th once daily at bedtime Pepcid 40 mg Tab 40 mg = 1 tab(s), Oral, Once a day (at bedtime), # 30 tab(s), Refills(s) 0, Pharmacy: [facility], 160, cm, 01/18/20 8:13:00 EDT, [...] / neomycin 3.5 mg/ml / polymyxin b 06337 unt/ml otic suspension (1 source) Aminoglycoside Antibacterial, Polymyxin-class Antibacterial, Corticosteroid Start: 02-18-2023 Neomycin-Polymyxin -HC 3.5-42702-9 3 drops right ear Three times a [...] Date: 04/27/23 Status: Ordered polyethylene glycol 3350 364900 mg / potassium chloride 1480 mg / sodium bicarbonate 5720 mg / sodium chloride 97678 mg powder for oral solution (3 sources) [...] 05-24-2024 Episodic Other aftercare (1 source) 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; Translations: [OTH HALFWAY CURRENT DRUG THERAPY] Onset: 3 Episodic Other [...] ( test) Ql (U) Negative Normal NEG [facility] Comment on above: Performed By: #### 2 106-3 #### MAIN LAB ([id number]) [address] [place], [place] [address] Surgical Pathologyon 025 Surgical Pathology Normal [facility] Comment on above: Result Comment: [facility] [address] [place] [address] Surgical Pathology Consultation Patient Name:TIERA WAKEFIELD:1970 (Age: 53)Gender:FTaken:06/23/2024Reported:06/30/2024Physician(s):Daniel Gold M.D. ([phone])Copy To: Rec. #:[id number]: #[id number] Final Pathologic Diagnosis Right Bartholin's gland, resection: Fibromuscular tissue includes clusters of glandular structures consistent with Bartholin's gland. Focal chronic inflammation is noted. No atypia identified. Report Electronically Signed Out acr/06/30/2024eugene George MD Interpretation performed at [facility], [address] [place] [address], License number: [id number]. Clinical History Recurrent abscess of Bartholin gland. Gross Description Received in formalin labeled COLLEEN, Bartholins gland is a pink-guzmán rubbery portion of soft tissue, 1.5 x 1.2 x 0.8 cm. No skin is identified. The specimen is inked black. The specimen serially sectioned to reveal pink-guzmán rubbery cut surfaces. Two registration representative cross-sections are submitted in a single cassette. (1, ss, [id number],m8.1) DM. dm/06/23/2024NSK Specimen(s) Received Right Bartholin's gland Fee Codes(s): 1; 92743 No Panel Informationon 06-15 Pure Tone Audiometry Audio indicated normal hearing sensitivity 250-3000 Hz, sloping to a mild sensorineural hearing loss 9726-1096 Hz in the left ear. The right ear exhibited normal hearing 250-2000 Hz, sloping to a mild sensorineural hearing loss 0201-7447 Hz, returning to normal hearing at 8000 Hz. [facility] CBC AND AUTO DIFFon 06-10-19 ABSOLUTE BASOPHIL 0.1 X10E9/L Normal 0.0-0.2 [facility] Comment on above: Performed By: #### C JAGDISH, CMP #### [facility] ([id number]) [address], [address] [place] [address] ABSOLUTE NEUTROPHIL 2.4 X10E9/L Normal 1.5-6.6 [facility] Comment on above: Performed By: #### C JAGDISH, CMP #### [facility] ([id number]) [address], [address] [place] [address] Basophils/100 WBC (Bld) 1.4 % Normal [facility] Comment on above: Performed By: #### C JAGDISH, CMP #### [facility] ([id number]) [address] [place] [address] Eosinophils (Bld) [#/Vol] 0.2 10*3/uL Normal 0.0-0.4 [facility] Comment on above: Performed By: #### C JAGDISH, CMP #### [facility] ([id number]) [address] [place] [address] Eosinophils/100 WBC (Bld) 3.9 % Normal [facility] Comment on above: Performed By: #### C JAGDISH, CMP #### [facility] ([id number]) [address], [address] [place] [address] Erythrocyte distribution width (RBC) [Ratio] 12.8 % Normal 11.5-15.0 [facility] Comment on above: Performed By: #### C JAGDISH, CMP #### [facility] ([id number]) [address], [address] [place] [address] Hematocrit (Bld) [Volume fraction] 43.3 % Normal 35-47 [facility] Comment on above: Performed By: #### C BCA, CMP #### [facility] ([id number]) [address] [place] [address] Hemoglobin (Bld) [Mass/Vol] 14.6 g/dL Normal 11.7-15.5 [facility] Comment on above: Performed By: #### C BCA, CMP #### [facility] ([id number]) [address] [place] [address] Lymphocytes (Bld) [#/Vol] 2.0 10*3/uL Normal 1.0-3.5 [facility] Comment on above: Performed By: #### C JAGDISH, CMP #### [facility] ([id number]) [address] [place] [address] Lymphocytes/100 WBC (Bld) 38.8 % Normal [facility] Comment on above: Performed By: #### C JAGDISH, CMP #### [facility] ([id number]) [address], [address] [place] [address] MCH (RBC) [Entitic mass] 29.8 pg Normal 27-34 [facility] Comment on above: Performed By: #### C JAGDISH, CMP #### [facility] ([id number]) [address] [place] [address] MCHC (RBC) [Mass/Vol] 33.7 g/dL Normal 32-36 [facility] Comment on above: Performed By: #### C BCA, CMP #### [facility] ([id number]) [address], [address] [place] [address] MCV (RBC) [Entitic vol] 88 fL Normal 80-100 [facility] Comment on above: Performed By: #### C BCA, CMP #### [facility] ([id number]) [address] [place] [address] Monocytes (Bld) [#/Vol] 0.4 10*3/uL Normal 0-0.9 [facility] Comment on above: Performed By: #### C BCA, CMP #### [facility] ([id number]) [address] [place] [address] Monocytes/100 WBC (Bld) 8.7 % Normal [facility] Comment on above: Performed By: #### C BCA, CMP #### [facility] ([id number]) [address] [place] [address] Neutrophils/100 WBC (Bld) 47.2 % Normal [facility] Comment on above: Performed By: #### C BCA, CMP #### [facility] ([id number]) [address] [place] [address] Platelet mean volume (Bld) [Entitic vol] 7.6 fL Normal 7-12 [facility] Comment on above: Performed By: #### C BCA, CMP #### [facility] ([id number]) [address] [place] [address] Platelets (Bld) [#/Vol] 272 10*3/uL Normal 150-450 [facility] Comment on above: Performed By: #### C BCA, CMP #### [facility] ([id number]) [address] [place] [address] RBC COUNT 4.90 X10E12/L Normal 3.80-5.20 [facility] Comment on above: Performed By: #### C BCA, CMP #### [facility] ([id number]) [address] [place] [address] WBC (Bld) [#/Vol] 5.1 10*3/uL Normal 4.0-11.0 [facility] Comment on above: Performed By: #### C BCA, CMP #### [facility] ([id number]) [address] [place] [address] CBC with auto diffon 025 Basophils (Bld) [#/Vol] 0.1 10*3/uL [facility] Basophils/100 WBC (Bld) 1.4 % [facility] Eosinophils (Bld) [#/Vol] 0.2 10*3/uL [facility] Eosinophils/100 WBC (Bld) 3.9 % [facility] Erythrocyte distribution width (RBC) [Ratio] 12.8 % 11.5 - 15.0 % [facility] Hematocrit (Bld) [Volume fraction] 43.3 % 35 - 47 % [facility] Hemoglobin (Bld) [Mass/Vol] 14.6 g/dL 11.7 - 15.5 g/dL [facility] Lymphocytes (Bld) [#/Vol] 2 10*3/uL [facility] Lymphocytes/100 WBC (Bld) 38.8 % [facility] MCH (RBC) [Entitic mass] 29.8 pg 27 - 34 pg [facility] MCHC (RBC) [Mass/Vol] 33.7 g/dL 32 - 36 g/dL [facility] MCV (RBC) [Entitic vol] 88 fL 80 - 100 fL [facility] Monocytes (Bld) [#/Vol] 0.4 10*3/uL [facility] Monocytes/100 WBC (Bld) 8.7 % [facility] Neutrophils (Bld) [#/Vol] 2.4 10*3/uL [facility] Neutrophils/100 WBC (Bld) 47.2 % [facility] Platelet mean volume (Bld) [Entitic vol] 7.6 fL 7 - 12 fL [facility] Platelets (Bld) [#/Vol] 272 10*3/uL [facility] RBC (Bld) [#/Vol] 4.9 10*6/uL [facility] WBC corrected for nucl RBC Auto (Bld) [#/Vol] 5.1 [facility] COMPREHENSIVE METABOLIC PANE Severino 06-10-2024 Albumin [Mass/Vol] 4.6 g/dL Normal 3.2-5.3 [facility] Comment on above: Performed By: #### C BCA, CMP #### [facility] ([id number]) [address], [address] [place] [address] ALP [Catalytic activity/Vol] 46 U/L Normal 39-130 [facility] Comment on above: Performed By: #### C BCA, CMP #### [facility] ([id number]) [address] [place] [address] ALT [Catalytic activity/Vol] 23 U/L Normal 0-31 [facility] Comment on above: Performed By: #### C BCA, CMP #### [facility] ([id number]) [address] [place] [address] Anion gap [Moles/Vol] 5 mmol/L Normal 5-15 [facility] Comment on above: Performed By: #### C BCA, CMP #### [facility] ([id number]) [address] [place] [address] AST [Catalytic activity/Vol] 19 U/L Normal 0-41 [facility] Comment on above: Performed By: #### C BCA, CMP #### [facility] ([id number]) [address] [place] [address] Bilirubin [Mass/Vol] 0.9 mg/dL Normal 0.3-1.2 [facility] Comment on above: Performed By: #### C BCA, CMP #### [facility] ([id number]) [address] [place] [address] Calcium [Mass/Vol] 9.4 mg/dL Normal 8.5-10.5 [facility] Comment on above: Performed By: #### C BCA, CMP #### [facility] ([id number]) [address] [place] [address] Chloride [Moles/Vol] 103 mmol/L Normal 98-109 [facility] [place] [facility] Comment on above: Performed By: #### C BCA, CMP #### [facility] ([id number]) [address] [place] [address] CO2 [Moles/Vol] 32 mmol/L Normal 22-32 [facility] Comment on above: Performed By: #### C BCA, CMP #### [facility] ([id number]) [address] [place] [address] Creatinine [Mass/Vol] 0.83 mg/dL Normal 0.40-1.00 [facility] Comment on above: Result Comment: METH OD TRACEABLE TO IDMS STANDARD Performed By: #### C BCA, CMP #### [facility] ([id number]) [address] [place] [address] GFR/1.73 sq M.predicted among non-blacks MDRD (S/P/Bld) [Vol rate/Area] 84 mL/min/{1.73_m2} Normal >59 [facility] Comment on above: Result Comment: Reported eGFR is based on the CKD-EPI 2020 equation that does not use a race coefficient. Performed By: #### C BCA, CMP #### [facility] ([id number]) [address] [place] [address] Glucose [Mass/Vol] 65 mg/dL Normal 65-99 [facility] Comment on above: Performed By: #### C BCA, CMP #### [facility] ([id number]) [address] [address] [address] [place] [address] Potassium [Moles/Vol] 4.2 mmol/L Normal 3.5-5.0 [facility] Comment on above: Performed By: #### C BCA, CMP #### [facility] ([id number]) [address] [place] [address] Protein [Mass/Vol] 7.2 g/dL Normal 6.0-8.0 [facility] Comment on above: Performed By: #### C BCA, CMP #### [facility] ([id number]) [address] [place] [address] Sodium [Moles/Vol] 140 mmol/L Normal 134-146 [facility] Comment on above: Performed By: #### C BCA, CMP #### [facility] ([id number]) [address] [place] [address] Urea nitrogen [Mass/Vol] 14 mg/dL Normal 5-23 [facility] Comment on above: Performed By: #### C BCA, CMP #### [facility] ([id number]) [address] [place] [address] Comprehensive metabolic pane severino 06-10-2024 Albumin [Mass/Vol] 4.6 g/dL 3.2 - 5.3 g/dL [facility] ALP [Catalytic activity/Vol] 46 U/L 39 - 130 U/L [facility] ALT No additional P-5'-P [Catalytic activity/Vol] 23 U/L 0 - 31 U/L [facility] Anion gap [Moles/Vol] 5 mmol/L 5 - 15 mmol/L [facility] AST [Catalytic activity/Vol] 19 U/L 0 - 41 U/L [facility] Bilirubin [Mass/Vol] 0.9 mg/dL 0.3 - 1.2 mg/dL [facility] Calcium [Mass/Vol] 9.4 mg/dL 8.5 - 10. 5 mg/dL [facility] Chloride [Moles/Vol] 103 mmol/L 98 - 109 mmol/L [facility] CO2 [Moles/Vol] 32 mmol/L 22 - 32 mmol/L [facility] Creatinine [Mass/Vol] 0.83 mg/dL 0.40 - 1.00 mg/dL [facility] Comment on above: METHOD TRACEABLE TO IDKS STANDARD eGFR (CKD-EPI)non-race dependent 84 - PINF [facility] Comment on above: Reported eGFR is based on the CKD-EPI 2020 equation that does not use a race coefficient. Glucose [Mass/Vol] 65 mg/dL 65 - 99 mg/dL [facility] Potassium [Moles/Vol] 4.2 mmol/L 3.5 - 5.0 mmol/L [facility] Protein [Mass/Vol] 7.2 g/dL 6.0 - 8.0 g/dL [facility] Sodium [Moles/Vol] 140 mmol/L 134 - 146 mmol/L [facility] Urea nitrogen [Mass/Vol] 14 mg/dL 5 - 23 mg/dL [facility] IGP,APTIMA HPV,AGE GDLNon AGE GDLN ACOG TESTING Note . [facility] Comment on above: TESTS RESULT FLAG UN ITS REF RANGE LAB Clinician Provided Cytology Information Source.............Cervix;Endocervix No. of containers..01 ThinPrep Vial Age Algo ACOG Emma... 30-65 01 FLAG LEGEND: L-Low Normal,H-High Normal,LL-Alert Low,HH-Alert High <-Panic Low,>-Panic High,A-Abnormal,AA-Critical Abnormal Performed at: 01 =G [facility] [place] [address] Crystal Mckeon MD, HPV APTIMA Negative Negative [facility] Comment on above: This nucleic acid am plification test detects fourteen high- risk HPV types (16,18,31,33,35,39,45,51,52,56,58,59,66,68) without differentiation. Performed at: =G - [facility] [id number] Waffle Machine Operator: Crystal Mckeon MD, Phone: [phone] Performed at: - [facility] [id number] Waffle Machine Operator: Crystal Mckeon MD, Phone: [phone] IGP, APTIMA HPV, RFX 16/18,45 Note . [facility] Comment on above: TESTS RESULT FLAG UN ITS REF RANGE LAB DIAGNOSIS: 02 NEGATIVE FOR INTRAEPITHELIAL LESION OR MALIGNANCY. CELLULAR CHANGES ASSOCIATED WITH ATROPHY ARE PRESENT. Specimen adequacy: 02 Satisfactory for evaluation. Endocervical component may not be distinguished in cases of atrophy. Performed by: 02 Isadora Jerome, Epic Kaleidoscope Analyst (ASCP) . 02 Note: Note 02 The [...] <-Panic Low,>-Panic High,A-Abnormal,AA-Critical Abnormal Performed at: 02 [facility] [address] [facility], [place] [address] Crystal Mckeon MD, BRUSH-SPATULA CERVIX ENDOCERVIX [facility] XR Knee Complete 4+ Views [facility] 12-30-2023 XR Knee Complete 4+ Views [...] mGy = na DAP = na Normal [facility] ED Clinical Summaryon 2023 ED Clinical Summary ED Clinical Summary [address] [address] ED Clinical Summary Person Information Name: TIERA WAKEFIELD Marilou/[facility] Age: 53 Years : 1970 Sex: Female Language: Nigerian PCP: GERALD TAVARES DO Marital Status: Phone: [phone] Visit Id: Visit Reason: Knee pain-swelling; Knee [...] 12/29/2023 21:33:24 12/29/2023 21:33:24 12/29/2023 21:33:24 ADDRESS: [address] [id number] [facility] DOC NOTES: MEDICAL INFORMATION: Prescriptions Given: Medications to Continue with No Changes Other Medications acetaminophen-hydrocodone ([place] 325 mg-5 mg oral tablet) 1 Tablets [...] Follow up: With: Address: When: GERALD TAVARES [employer] [place] [address] [employer] (1) In 3 days DIAGNOSIS: Contusion of knee Normal [facility] ED Note-Physicianon 12-29-19 ED Note-Physician ED [...] and Complexity of Problems Differential Diagnosis: [] [facility] Data External documents reviewed: N/A My EKG [...] Information GERALD TAVARES In 3 days [address] [place] [address]- Business (1) Additional Instructions: Patient Education Contusion Problem List/Past Medical History Ongoing Acid reflux Austin's esophagus Colon polyp Degenerative disc disease Hiatal hernia History of colon polyps History of diverticulitis Irregular Z line of esophagus OA - Osteoarthritis Rectal polyp Schatzki's ring Historical Dysphagia Esophagitis, [place] grade B Gallbladder stones Irregular bowel habits [...] Topical, Daily, Not taking Mylanta Maximum Strength [place] 325 mg-5 mg oral tablet, 1 tab(s), [...] smoker, qu (more content not included)... Normal [facility] Comment on above: Result Comment: Elec tronically Signed By: Phillip DO, Manav S.\.br\Date and Time Signed: 12/29/23 21:22 EDT ED Patient Summaryon 024 ED Patient Summary ED Patient Summary [place] [id number] Patient Discharge Instructions Person Information Name: TIERA WAKEFIELD Age: 53 Years Arrival Date: 12/29/2023 19:59:47 Discharge Diagnosis: Contusion of knee Primary Care Physician: GERALD TAVARES DO Provider Information Primary Provider: Manav Fisher DO Advanced Assistant Professor Of Communication:None The exam and treatment you received in the Emergency Department were for an urgent problem and are not intended as complete care. It is important that you follow up with a doctor, nurse practitioner, or physician?s assistant passenger locomotive engineer for ongoing care. If your symptoms become worse or you do not improve as expected and you are unable to reach your usual health care provider, you should return to the Emergency Department. We are available 24 hours a day. TIERA WAKEFIELD has been given the following list of patient education materials, prescriptions and follow-up instructions: Follow-up Instructions: With: Address: When: GERALD TAVARES [email or web address] [place] [phone] Business (1) In 3 days In the event that this physician does not participate in your insurance network, please consult with your insurance company to find a nearby participating provider. Patient Education Materials: Contusion A MESSAGE TO ALL PATIENTS REGARDING OPIOIDS PRESCRIPTION OPIOIDS: WHAT YOU NEED TO KNOW Prescription opioids can be used to help relieve ddrtvwes-ax-znbswl pain and are often prescribed following a [...] be struggling with addiction, tell your health client care coordinator and ask for guidance or call [facility]?S National Helpline at 7-108-432-QCHW. v Source: [facility] (more content not included)... Normal [facility] Reminderson 08-05-2023 Reminders - From: Anna Hassan CNP To: Jeanette Lloyd; Sent: 08/04/2023 15:01:31 EDT Show up: 08/04/2023 15:02:00 EDT Subject: Ambulatory Reminder Reminder/Recall EGD in 2026. 07/13/2026 3 year EGD recall From: Jeanette Lloyd To: [facility] - Reminders/Recalls; Sent: 08/05/2023 08:05:42 EDT ! Show up: 05/21/2026 08:05:00 EST Due Date/Time: 06/18/2026 08:05:00 EST Normal [facility] Ambulatory Visit Summaryon 0 08-04-2023 Ambulatory [...] hydroxide/simethicone (Mylanta Maximum Strength) BMX Solution acetaminophen-hydrocodone ([place] 325 mg-5 mg oral tablet) albuterol (Albuterol [...] With: Merlin DEE, Elina Biswas Where: [facility] Invalid Interpretation Code Acid reflux, Print Label By Order Location\.b r\ Vitamin B12 Level, Blood, Routine collect, 08/04/23, Order for future visit, Lab Collect, Austin's esophagus [facility] Gastroenterology Office/Clin ic Noteon 08-04-2023 Gastroenterology [...] day(s), # 90 cap(s), Refills(s) 2, Pharmacy: [facility]5, 160, cm, 08/04/23 14:50:00 EDT, Height/Length [...] revealed irregular (more content not included)... Normal [facility] Comment on above: Result Comment: Elec [...] Tomatoes and foods made with tomatoes. ? [place] or spicy foods. ? Chocolate and peppermint. ? Do not drink alcohol. General instructions ? Take gnic-msl-fgvoper and prescription medicines only as told by [...] Reviewed: 06/23/2020 Elsevier Patient Education ? 2022 [facility] Normal [facility] Operative Reporton Operative Report [id number] Normal [facility] Physician Orderon 07-14-2023 Physician Order [id number] Normal [facility] Quick Strepon 02-18-2023 S. pyogenes Org specific cx Ql (Throat) Negative GLO Other Quick Strep [employer] [facility] [employer] Other CBC AUTO DIFFon 06-04-2022 BASO # 0.0 103/ul Normal 0.0-0.1 [facility] Comment on above: Performed By: #### C BC #### [facility] [address] [place] [address] Dr. Jacob Mcdaniel Basophils/100 WBC (Bld) 0.8 % Normal 0.2-2.0 [facility] Comment on above: Performed By: #### C BC #### [facility] [address] [place] [address] Dr. Jacob Mcdaniel EO # 0.2 103/ul Normal 0.0-0.7 [facility] Comment on above: Performed By: #### C BC #### [facility] [address] [place] [address] Dr. Jacob Mcdaniel Eosinophils/100 WBC (Bld) 3.0 % Normal 0.9-7.0 [facility] Comment on above: Performed By: #### C BC #### [facility] [address] [place] [address] Dr. Jacob Mcdaniel Erythrocyte distribution width (RBC) [Ratio] 12.1 % Normal 11.0-15.0 [facility] Comment on above: Performed By: #### C BC #### [facility] [address] [place] [address] Dr. Jacob Mcdaniel Hematocrit (Bld) [Volume fraction] 42.5 % Normal 36.0-48.0 [facility] Comment on above: Performed By: #### C BC #### [facility] [address] [place] [address] Dr. Jacob Mcdaniel Hemoglobin (Bld) [Mass/Vol] 14.7 g/dL Normal 12.0-16.0 [facility] Comment on above: Performed By: #### C BC #### [facility] [address] [place] [address] Dr. Jacob Mcdaniel IG # 0.02 10e3/ul Normal 0.00-0.03 [facility] Comment on above: Performed By: #### C BC #### [facility] [address] [place] [address] Dr. Jacob Mcdaniel IG % 0.4 % Normal 0.0-0.5 [facility] Comment on above: Performed By: #### C BC #### [facility] [address] [place] [address] Dr. Jacob Mcdaniel LYMPH # 1.7 103/ul Normal 1.2-3.8 [facility] Comment on above: Performed By: #### C BC #### [facility] [address] [place] [address] Dr. Jacob Mcdaniel Lymphocytes/100 WBC (Bld) 31.8 % Normal 20.5-60.0 [facility] Comment on above: Performed By: #### C BC #### [facility] [address] [place] [address] Dr. Jacob Mcdaniel MANUAL DIFF REQ NO Normal [facility] Comment on above: Performed By: #### C BC #### [facility] [address] [place] [address] Dr. Jacob Mcdaniel MCH (RBC) [Entitic mass] 30.1 pg Normal 26.7-34.0 [facility] Comment on above: Performed By: #### C BC #### [facility] [address] [place] [address] Dr. Jacob Mcdaniel MCHC (RBC) [Mass/Vol] 34.6 g/dL Normal 29.9-35.2 [facility] Comment on above: Performed By: #### C BC #### [facility] [address] [place] [address] Dr. Jacob Mcdaniel MCV (RBC) [Entitic vol] 86.9 fL Normal 81.0-99.0 [facility] Comment on above: Performed By: #### C BC #### [facility] [address] [place] [address] Dr. Jacob Mcdaniel MONO # 0.3 103/ul Normal 0.3-0.8 [facility] Comment on above: Performed By: #### C BC #### [facility] [address] [place] [address] Dr. Jacob Mcdaniel Monocytes/100 WBC (Bld) 6.2 % Normal 1.7-12.0 [facility] Comment on above: Performed By: #### C BC #### [facility] [address] [place] [address] Dr. Jacob Mcdaniel NEUT # 3.1 103/ul Normal 1.4-6.5 [facility] Comment on above: Performed By: #### C BC #### [facility] [address] [place] [address] Dr. Jacob Mcdaniel Neutrophils/100 WBC (Bld) 57.8 % Normal 43.0-75.0 [facility] Comment on above: Performed By: #### C BC #### [facility] [address] [place] [address] Dr. Jacob Mcdaniel Platelet mean volume (Bld) [Entitic vol] 8.9 fL Critically low 9.5-13.5 [facility] Comment on above: Performed By: #### C BC #### [facility] [address] [place] [address] Dr. Jacob Mcdaniel PLT 263 103/ul Normal 150-450 [facility] Comment on above: Performed By: #### C BC #### [facility] [address] [place] [address] Dr. Jacob Mcdaniel RBC 4.89 106/ul Normal 4.20-5.40 [facility] Comment on above: Performed By: #### C BC #### [facility] [address] [place] [address] Dr. Jacob Mcdaniel WBC 5.3 103/ul Normal 4.0-11.0 [facility] Comment on above: Performed By: #### C BC #### [facility] [address] [place] [address] Dr. Jacob Mcdaniel MG MAMM SCREEN 3D ISABEL CADon 06-04-2022 MG MAMM SCREEN 3D ISABEL CAD Patient: TIERA WAKEFIELD Exam Date: 06/04/2022 : 1970 Gender:F Ordering : DR HERB MEDEL . Admission #: [id number] Family : DR GERALD TAVARES D.O. Order #: [id number] CLICK HERE TO VIEW EXAM RADIOLOGY REPORT [...] kidney cancer at age 64. LOCATION: [facility] BREAST COMPOSITION: Heterogeneously dense,which may obscure [...] Tang MD on 06/04/2022 at 14:03 Normal [facility] PROF 14(COMP METB)on 023 Albumin [Mass/Vol] 4.0 g/dL Normal 3.4-5.0 [facility] Comment on above: Performed By: #### T MACKENZIE, CMP #### [facility] [address], [place] [address] Dr. Jacob Mcdaniel Albumin/Globulin [Mass ratio] 1.2 {ratio} Normal [facility] Comment on above: Performed By: #### T MACKENZIE, CMP #### [facility] [address], [place] [address] Dr. Jacob Mcdaniel ALP [Catalytic activity/Vol] 69 U/L Normal 46-116 [facility] Comment on above: Performed By: #### T SH, CMP #### [facility] [address] [place] [address] [address] Jacob Mcdaniel ALT [Catalytic activity/Vol] 40 U/L Normal 14-59 [facility] Comment on above: Performed By: #### T SH, CMP #### [facility] [address] [address] [address] Jacob Mcdaniel Anion gap [Moles/Vol] 12.1 mmol/L Normal [facility] Comment on above: Performed By: #### T SH, CMP #### [facility] [address] [address] [address] Jacob Mcdaniel AST [Catalytic activity/Vol] 21 U/L Normal 15-37 [facility] Comment on above: Performed By: #### T SH, CMP #### [facility] [address] [address] [address] Jacob Mcdaniel Bilirubin [Mass/Vol] 0.8 mg/dL Normal 0.2-1.0 [facility] Comment on above: Performed By: #### T MACKENZIE, CMP #### [facility] [address] [address] [address] Jacob Mcdaniel Calcium [Mass/Vol] 9.5 mg/dL Normal 8.5-10.1 [facility] Comment on above: Performed By: #### T MACKENZIE, CMP #### [facility] [address] [place] [address] [address] Jacob Mcdaniel Chloride [Moles/Vol] 103 mmol/L Normal 98-107 [facility] Comment on above: Performed By: #### T SH, CMP #### [facility] [address] [place] [address] [address] Jacob Mcdaniel CO2 [Moles/Vol] 31.9 mmol/L Normal 21.0-32.0 [facility] Comment on above: Performed By: #### T SH, CMP #### [facility] [address] [address] [address] Jacob Mcdaniel Creatinine [Mass/Vol] 0.84 mg/dL Normal 0.55-1.02 [facility] Comment on above: Performed By: #### T SH, CMP #### [facility] [address] [address] [address] Jacob Mcdaniel EGFR-AF HAITIAN >60 Normal >=60 [facility] Comment on above: Performed By: #### T SH, CMP #### [facility] [address] [address] [address] Jacob Mcdaniel EGFR-NON AF HAITIAN >60 Normal >=60 [facility] Comment on above: Performed By: #### T SH, CMP #### [facility] [address] [address] [address] Jacob Mcdaniel Globulin (S) [Mass/Vol] 3.4 g/dL Normal [facility] Comment on above: Performed By: #### T SH, CMP #### [facility] [address] [place] [address] Dr. Jacob Mcdaniel Glucose [Mass/Vol] 105 mg/dL Normal 74-106 [facility] Comment on above: Performed By: #### T SH, CMP #### [facility] [address] [address] [address] Jacob Mcdaniel Potassium [Moles/Vol] 4.0 mmol/L Normal 3.5-5.1 [facility] Comment on above: Performed By: #### T SH, CMP #### [facility] [address] [place] [address] [address] Jacob Mcdaniel Protein [Mass/Vol] 7.4 g/dL Normal 6.4-8.2 [facility] [place] [facility] Comment on above: Performed By: #### T SH, CMP #### [facility] [address] [address] [address] Jacob Mcdaniel Sodium [Moles/Vol] 143 mmol/L Normal 136-145 [facility] [place] [facility] Comment on above: Performed By: #### T SH, CMP #### [facility] [address] [address] [address] Jacob Mcdaniel Urea nitrogen [Mass/Vol] 12.0 mg/dL Normal 7.0-18.0 [facility] Comment on above: Performed By: #### T MACKENZIE, CMP #### [facility] [address] [place], [place] [address] Dr. Jacob Mcdaniel Urea nitrogen/Creatinin e [Mass ratio] 14.3 mg/mg Normal [facility] Comment on above: Performed By: #### T SH, CMP #### [facility] [address] [place], [place] [address] Dr. Jacob Mcdaniel TSHon 06-04-2022 TSH 0.619 uIU/mL Normal 0.358-3.740 [facility] Comment on above: Performed By: #### T MACKENZIE, CMP ####[facility] [address] [place] [address]Dr. Jacob Mcdaniel VIT B12 AND FOLATEon 023 Cobalamin (Vitamin B12) [Mass/Vol] 396.0 pg/mL Normal 193.0-986.0 [facility] Comment on above: Performed By: #### B 12FOL ####[facility] [address] [place] [address]Dr. Jacob Mcdaniel FOLATE 9.30 ng/mL Normal 8.60-58.90 [facility] Comment on above: Performed By: #### B 12FOL ####[facility] [address] [place] [address]Dr. Jacob Mcdaniel XR DEXA BONE DENSITYon 06-04 [...] by: FRANK MONROY Date: 2022-06-04 13:14 Normal [facility] XR CSPINE 2_3 VIEWSon 2022 XR [...] by: LIZBETH TANG Date: 2022-05-30 13:58 Normal [facility] PAP ACOG PANEL 2: 30 to 65on 01-29-2022 . . Normal [facility] Comment on above: Result Comment: Perf ormed at: BA Performed By: #### [id number] #### [facility] [address] [place] [address] [address] Jacob Mcdaniel Age Gdln ACOG Testing 30-65 Normal [facility] Comment on above: Performed By: #### [id number] #### [facility] [address] [place] [address] [address] Jacob Mcdaniel DIAGNOSIS: Comment Normal [facility] Comment on above: Result Comment: NEGA TIVE FOR INTRAEPITHELIAL LESION OR MALIGNANCY. CELLULAR CHANGES ASSOCIATED WITH ATROPHY AND INFLAMMATION ARE PRESENT. Performed at: BA Performed By: #### [id number] #### [facility] [address] [place] [address] [address] Jacob Mcdaniel HPV Aptima Negative Normal Negative [facility] Comment on above: Result Comment: This nucleic acid amplification test detects fourteen high-risk HPV types (16,18,31,33,35,39,45,51,52,56,58,59,66,68) without differentiation. Performed at: =G Performed By: #### [id number] #### [facility] [address] [address] [address] Jacob Mcdaniel Methodology: Comment Normal [facility] Comment on above: Result Comment: This liquid based ThinPrep(R) pap test was screened with the use of an image guided system. Performed at: WB Performed By: #### [id number] #### [facility] [address] [place] [address] Dr. Jacob Mcdaniel Note: Comment Normal [facility] Comment on above: Result Comment: The Pap smear is a screening test designed to aid in the detection of premalignant and malignant conditions of the uterine cervix. It is not a diagnostic procedure and should not be used as the sole means of detecting cervical cancer. Both false-positive and false-negative reports do occur. . Performed at: WB Performed By: #### [id number] #### [facility] [address] [place] [address] Dr. Jacob Mcdaniel Performed by: Comment Normal [facility] Comment on above: Result Comment: Codey Lorenzo, Epic Kaleidoscope Analyst (ASCP) Performed at: BA Performed By: #### [id number] #### [facility] [address] [place] [address] Dr. Jacob Mcdaniel Specimen adequacy: Comment Normal [facility] [place] [facility] Comment on above: Result Comment: Sati sfactory for evaluation. Endocervical and/or squamous metaplastic cells (endocervical component) are present. Performed at: BA Performed By: #### [id number] #### [facility] [address] [place] [address] Dr. Jacob Mcdaniel AMYLASEon 09-25-2021 Amylase [Catalytic activity/Vol] 40 U/L Normal 25-115 [facility] Comment on above: Performed By: #### C MP, ZEYNEP, LIPA ####[facility] [address] [place] [address]Dr. Jacob Mcdaniel CBC AUTO DIFFon 09-25-2021 BASO # 0.0 103/ul Normal 0.0-0.1 [facility] Comment on above: Performed By: #### C BC ####[facility] [address] [place] [address]Dr. Jacob Mcdaniel Basophils/100 WBC (Bld) 0.6 % Normal 0.2-2.0 [facility] Comment on above: Performed By: #### C BC ####[facility] [address] [place] [address]Dr. Jacob Mcdaniel EO # 0.1 103/ul Normal 0.0-0.7 [facility] Comment on above: Performed By: #### C BC ####[facility] [address] [place] [address]Dr. Jacob Mcdaniel Eosinophils/100 WBC (Bld) 1.5 % Normal 0.9-7.0 [facility] Comment on above: Performed By: #### C BC ####[facility] [address] [place], [place] [address]Dr. Jacob Mcdaniel Erythrocyte distribution width (RBC) [Ratio] 12.2 % Normal 11.0-15.0 [facility] Comment on above: Performed By: #### C BC ####[facility] [address] [place], [place] [address]Dr. Jacob Mcdaniel Hematocrit (Bld) [Volume fraction] 41.6 % Normal 36.0-48.0 [facility] Comment on above: Performed By: #### C BC ####[facility] [address] [place], [place] [address]Dr. Jacob Mcdaniel Hemoglobin (Bld) [Mass/Vol] 13.8 g/dL Normal 12.0-16.0 [facility] Comment on above: Performed By: #### C BC ####[facility] [address] [place], [place] [address]Dr. Jacob Mcdaniel IG # 0.01 10e3/ul Normal 0.00-0.03 [facility] Comment on above: Performed By: #### C BC ####[facility] [address] [place], [place] [address]Dr. Jacob Mcdaniel IG % 0.1 % Normal 0.0-0.5 [facility] Comment on above: Performed By: #### C BC ####[facility] [address] [place], [place] [address]Dr. Mitastar Mcdaniel LYMPH # 2.8 103/ul Normal 1.2-3.8 [facility] Comment on above: Performed By: #### C BC ####[facility] [address] [place] [address]Dr. Jacob Mcdaniel Lymphocytes/100 WBC (Bld) 40.1 % Normal 20.5-60.0 [facility] Comment on above: Performed By: #### C BC ####[facility] [address] [place] [address]Dr. Jacob Mcdaniel MANUAL DIFF REQ NO Normal [facility] Comment on above: Performed By: #### C BC ####[facility] [address] [place] [address]Dr. Jacob Mcdaniel MCH (RBC) [Entitic mass] 30.1 pg Normal 26.7-34.0 [facility] Comment on above: Performed By: #### C BC ####[facility] [address] [place], [place] [address]Dr. Jacob Mcdaniel MCHC (RBC) [Mass/Vol] 33.2 g/dL Normal 29.9-35.2 [facility] Comment on above: Performed By: #### C BC ####[facility] [address] [place] [address]Dr. Jacob Mcdaniel MCV (RBC) [Entitic vol] 90.6 fL Normal 81.0-99.0 [facility] Comment on above: Performed By: #### C BC ####[facility] [address] [place], [place] [address]Dr. Jacob Mcdaniel MONO # 0.5 103/ul Normal 0.3-0.8 [facility] Comment on above: Performed By: #### C BC ####[facility] [address] [place] [address]Dr. Jacob Mcdaniel Monocytes/100 WBC (Bld) 6.9 % Normal 1.7-12.0 [facility] Comment on above: Performed By: #### C BC ####[facility] [address] [place], [place] [address]Dr. Jacob Mcdaniel NEUT # 3.5 103/ul Normal 1.4-6.5 [facility] Comment on above: Performed By: #### C BC ####[facility] [address] [place], [place] [address]Fd. Jacob Mcdaniel Neutrophils/100 WBC (Bld) 50.8 % Normal 43.0-75.0 [facility] Comment on above: Performed By: #### C BC ####[facility] [address] [place], [place] [address]Yl. Jacob Mcdaniel Platelet mean volume (Bld) [Entitic vol] 9.1 fL Critically low 9.5-13.5 [facility] Comment on above: Performed By: #### C BC ####[facility] [address] [place] [address]Dr. Jacob Mcdaniel PLT 279 103/ul Normal 150-450 [facility] Comment on above: Performed By: #### C BC ####[facility] [address] [place] [address]Dr. Jacob Mcdaniel RBC 4.59 106/ul Normal 4.20-5.40 [facility] Comment on above: Performed By: #### C BC ####[facility] [address] [place], [place] [address]Yk. Jacob Mcdaniel WBC 6.9 103/ul Normal 4.0-11.0 [facility] Comment on above: Performed By: #### C BC ####[facility] [address] [place] [address]Dr. Jacob Mcdaniel CT ABD/PELVIS WO CONon 09-25 [...] PATTI LOPEZ Date: 2021-09-25 18:01 Normal [facility] CULTURE URINEon 09-25-2021 CULTURE URINE Culture Observations : LIGHT GROWTH OF MIXED GENITAL BRANDT. NO POTENTIAL PATHOGENS SEEN. Normal [facility] Comment on above: Performed By: #### U RCX ####[facility] [address] [place], [place] [address]KmDoron Mcdaniel [facility]on SARS-CoV-2 (COVID-19) RNA MATT+probe Ql (Unsp spec) Not detected Normal NOT DETECTED [facility] Comment on above: Result Comment: When [...] this test is supported by the [employer] of [employer] and Human Service's declaration that [...] be used). Performed By: #### C VDTB ####[facility] [address] [place] [address]Dr. Jacob Mcdaniel ER URINE PROFILEon 2 Bilirubin Ql (U) Negative Normal NEGATIVE The [facility] Comment on above: Performed By: #### PEG ROJO UMICRO #### [facility] [address] [place] [address] Dr. Jacob Mcdaniel Clarity (U) CLEAR Normal CLEAR [facility] Comment on above: Performed By: #### PEG ROJO UMICRO #### [facility] [address] [place] [address] Dr. Jacob Mcdaniel Color (U) LT. YELLOW Normal YELLOW [facility] Comment on above: Performed By: #### PEG ROJO UMICRO #### [facility] [address] [place] [address] Dr. Jacob Mcdaniel ERURAH A micrscopic examina tion will be performed if indicated. Normal [facility] Comment on above: Performed By: #### PEG ROJO UMICRO #### [facility] [address] [place] [address] Dr. Jacob Mcdaniel Glucose Ql (U) Negative Normal NEGATIVE [facility] Comment on above: Performed By: #### PEG ROJO UMICRO #### [facility] [address] [place] [address] Dr. Jacob Mcdaniel Hemoglobin Ql (U) Negative Normal NEGATIVE [facility] Comment on above: Performed By: #### BIB ROJOU UMICRO #### [facility] [address] [place] [address] Dr. Jacob Mcdaniel Ketones Ql (U) Negative Normal NEGATIVE [facility] Comment on above: Performed By: #### E RUR PREGU, UMICRO #### [facility] [address] [place] [address] Dr. Jacob Mcdaniel LEUKOCYTES MODERATE Abnormal NEGATIVE [facility] Comment on above: Performed By: #### E RUR PREGU, UMICRO #### [facility] [address] [place] [address] Dr. Jacob Mcdaniel Nitrite Ql (U) Negative Normal NEGATIVE [facility] Comment on above: Performed By: #### Brett RUTahir PREGU UMICRO #### [facility] [address] [place] [address] Dr. Jacob Mcdaniel pH (U) 7.0 [pH] Normal 5-9 [facility] Comment on above: Performed By: #### Brett SHAH PREGU UMICRO #### [facility] [address] [place] [address] Dr. Jacob Mcdaniel SPEC GRAVITY 1.010 Normal 1.005-<=1.0 25 [facility] Comment on above: Performed By: #### Brett SHAH PREGU, UMICRO #### [facility] [address] [place] [address] Dr. Jacob Mcdaniel UA PROTEIN Negative Normal NEGATIVE/ TRACE [facility] Comment on above: Performed By: #### Brett SHAH PREGU UMICRO #### [facility] [address] [place] [address] [address] Jacob Mcdaniel UR MICRO IND INDICATED Normal [facility] Comment on above: Performed By: #### Brett RUR PREGU, UMICRO #### [facility] [address] [place] [address] Dr. Jacob Mcdaniel Urobilinogen Qn (U) 0.2 {Tessy'U}/dL Normal 0.2 - 1.0 [facility] Comment on above: Performed By: #### Brett RUR PREGU, UMICRO #### [facility] [address] [place] [address] Dr. Jacob Mcdaniel LIPASEon 09-25-2021 Lipase [Catalytic activity/Vol] 100.0 U/L Normal 73.0-393.0 [facility] Comment on above: Performed By: #### C MP, ZEYNEP, LIPA ####[facility] [address] [place] [address]Dr. Jacob Mcdaniel URon 09-25-2021 , QUAL Negative Normal NEGATIVE [facility] Comment on above: Performed By: #### E RUR, PREGU, UMICRO #### [facility] [address] [place] [address] [address] Jacob Mcdaniel PROF 14(COMP METB)on 022 Albumin [Mass/Vol] 3.8 g/dL Normal 3.4-5.0 [facility] Comment on above: Performed By: #### C MP, ZEYNEP, LIPA ####[facility] [address] [place] [address]Dr. Jacob Mcdaniel Albumin/Globulin [Mass ratio] 1.1 {ratio} Normal [facility] Comment on above: Performed By: #### C MP, ZEYNEP, LIPA ####[facility] [address] [place] [address]Dr. Jacob Mcdaniel ALP [Catalytic activity/Vol] 76 U/L Normal 46-116 [facility] Comment on above: Performed By: #### C MP, ZEYNEP, LIPA ####[facility] [address] [place] [address]Dr. Jacob Mcdaniel ALT [Catalytic activity/Vol] 43 U/L Normal 14-59 [facility] Comment on above: Performed By: #### C MP, ZEYNEP, LIPA ####[facility] [address] [place] [address]Dr. Jacob Mcdaniel Anion gap [Moles/Vol] 11.9 mmol/L Normal [facility] Comment on above: Performed By: #### C MP, ZEYNEP, LIPA ####[facility] [address] [place] [address]Dr. Jacob Mcdaniel AST [Catalytic activity/Vol] 24 U/L Normal 15-37 [facility] Comment on above: Performed By: #### C MP, ZEYNEP, LIPA ####[facility] [address] [place] [address]Dr. Jacob Mcdaniel Bilirubin [Mass/Vol] 0.3 mg/dL Normal 0.2-1.0 [facility] Comment on above: Performed By: #### C MP ZEYNEP, LIPA ####[facility] [address] [place], [place] [address]Dr. Jacob Mcdaniel Calcium [Mass/Vol] 8.6 mg/dL Normal 8.5-10.1 [facility] Comment on above: Performed By: #### C MP ZEYNEP, LIPA ####[facility] [address] [place], [place] [address]Dr. Jacob Mcdaniel Chloride [Moles/Vol] 104 mmol/L Normal 98-107 [facility] Comment on above: Performed By: #### C MP ZEYNEP, LIPA ####[facility] [address] [place], [place] [address]Dr. Jacob Mcdaniel CO2 [Moles/Vol] 27.7 mmol/L Normal 21.0-32.0 The [facility] Comment on above: Performed By: #### C MP ZEYNEP, LIPA ####[facility] [address] [place], [place] [address]Dr. Jacob Mcdaniel Creatinine [Mass/Vol] 0.89 mg/dL Normal 0.55-1.02 [facility] Comment on above: Performed By: #### C MP, ZEYNEP, LIPA ####[facility] [address] [place], [place] [address]Dr. Yilan Mcdaniel EGFR-AF HAITIAN >60 Normal >=60 The [facility] Comment on above: Performed By: #### C MP, ZEYNEP, LIPA ####[facility] [address] [place], [place] [address]Dr. Yilan Mcdaniel EGFR-NON AF HAITIAN >60 Normal >=60 [facility] Comment on above: Performed By: #### C MP, ZEYNEP, LIPA ####[facility] [address] [place] [address]Dr. Jacob Mcdaniel Globulin (S) [Mass/Vol] 3.5 g/dL Normal [facility] Comment on above: Performed By: #### C MP, ZEYNEP, LIPA ####[facility] [address] [place] [address]Dr. Jacob Mcdaniel Glucose [Mass/Vol] 91 mg/dL Normal 74-106 [facility] Comment on above: Performed By: #### C MP, ZEYNEP, LIPA ####[facility] [address] [place] [address]Dr. Jacob Mcdaniel Potassium [Moles/Vol] 3.6 mmol/L Normal 3.5-5.1 [facility] Comment on above: Performed By: #### C MP, ZEYNEP, LIPA ####[facility] [address] [place] [address]Dr. Jacob Mcdaniel Protein [Mass/Vol] 7.3 g/dL Normal 6.4-8.2 [facility] Comment on above: Performed By: #### C MP, ZEYNEP, LIPA ####[facility] [address] [place] [address]Dr. Jacob Mcdaniel Sodium [Moles/Vol] 140 mmol/L Normal 136-145 [facility] Comment on above: Performed By: #### C MP, ZEYNEP, LIPA ####[facility] [address] [place] [address]Dr. Jacob Mcdaniel Urea nitrogen [Mass/Vol] 14.0 mg/dL Normal 7.0-18.0 [facility] Comment on above: Performed By: #### C MP, ZEYNEP, LIPA ####[facility] [address] [place] [address]Dr. Jacob Mcdaniel Urea nitrogen/Creatinin e [Mass ratio] 15.7 mg/mg Normal [facility] Comment on above: Performed By: #### C MP, ZEYNEP, LIPA ####[facility] [address] [place] [address]Dr. Jacob Mcdaniel URINE MICROSCOPIC ONLYon BACTERIA SMALL Abnormal NONE SEEN [facility] Comment on above: Performed By: #### E RUR, PREGU, UMICRO #### [facility] [address] [place] [address] [address] Jacob Mcdaniel Bacteria identified Cx Nom (U) INDICATED Normal [facility] Comment on above: Performed By: #### E RUR, PREGU, UMICRO #### [facility] [address] [address] [address] Jacob Mcdaniel CAST NONE SEEN Normal NONE SEEN [facility] Comment on above: Performed By: #### E RUR, PREGU, UMICRO #### [facility] [address] [place] [address] [address] Jacob Mcdaniel Crystals LM Nom (Urine sed) NONE SEEN Normal NONE SEEN [facility] Comment on above: Performed By: #### E RUR, PREGU, UMICRO #### [facility] [address] [place] [address] Dr. Jacob Mcdaniel Epithelial cells LM Ql (Urine sed) FEW Abnormal NONE SEEN /RARE [facility] Comment on above: Performed By: #### E RUR, PREGU, UMICRO #### [facility] [address] [address] [address] Jacob Mcdaniel MUCOUS NONE SEEN Normal NONE SEEN [facility] Comment on above: Performed By: #### E RUR, PREGU, UMICRO #### [facility] [address] [address] [address] Jacob Mcdaniel RBC NONE SEEN Abnormal 0-2 [facility] Comment on above: Performed By: #### E RUR, PREGU, UMICRO #### [facility] [address] [address] [address] Jacob Mcdaniel WBC 10-20 Abnormal NONE SEEN [facility] Comment on above: Performed By: #### E RUR, PREGU, UMICRO #### [facility] [address] [place] [address] Dr. Jacob Mcdaniel XR lumbar spine AP/LAT/FLX/E XTon 07-29-2021 XR lumbar spine AP/LAT/FLX/EXT [facility] [address] [address] XRay Report Signed Patient: Tiera Wakefield MR#: [id number] 21 : 1970 Acct:[id number] Age/Sex: 50 / F ADM Date: 07/29/21 Loc: XD Room: Type: [facility] Attending Dr: Matteo Person MD Ordering [...] Aguilar Jr., D.O.07/29/2021 2:43 PM Dictation Location: [place] [address] Transcribed By: [facility] 07/29/21 1443 Dictated By: Wilson Aguilar Jr, DO 07/29/21 1441 Signed By: 07/29/21 1443 [facility] Operative Reporton 9 Operative Report MR#: [id number] [facility] Pt. Name: Tiera Wakefield Room #: 0C Discharge Date: Birthdate: 1970 OPERATIVE REPORT DATE OF SURGERY: 12/01/2018 SURGEON: Lizbeth Fleming M.D. PREOPERATIVE DIAGNOSIS: Left shoulder rotator cuff tear. POSTOPERATIVE DIAGNOSIS: Left shoulder rotator cuff tear. BILL CLERK: Darinel Bartholomew M.D. ANESTHESIA: General. PROCEDURE PERFORMED: Left shoulder rotator cuff repair. INDICATIONS: The patient is a 48-year-old woman, who had previously had a rotator cuff repair performed by Dr. Melvin in [place]. I reviewed the intraoperative images and it [...] reconstruction. This would be to remove her zuni rotator cuff tendon and instead reconstruct with [...] Fleming M.D. Date Trans: 12/01/2018 11:50 A/cory [id number] cc: Gerald Tavares D.O. [address] [facility] [address] Normal [facility] POC GLUCOSE LABon 12-01-2018 Glucose [Mass/Vol] 79 mg/dL Normal 70-100 [facility] Comment on above: Performed By: #### 8 5499 #### [address] POC URINE PREGNANCYon 2018 Beta HCG ( test) Ql (U) Negative Normal NEGATIVE [facility] Comment on above: Result Comment: Perf ormed in PACU Performed By: #### 8 4140 #### [address] MRI SHOULDER WO CONTRAST LEF Ton 08-18-2018 MRI SHOULDER WO CONTRAST LEFT [facility] Department of Radiology [address] [place] [id number] Patient Name: TIERA WAKEFIELD : 1970 Sex: F Age: Race: White Pt. Location: Patient Status: Ordered Date: 08/10/2018 12:00:00 PM Completed Date: 08/18/2018 07:41 AM Requesting Provider: LIZBETH FLEMING Attending Provider: Report Copy To: Signs & Symptoms: M75.122 Complete rotatr-cuff tear/ruptr of left shoulder, not trauma I10 History: Kaylah, Hardware left shoulder -new number npc mri [id number] / jake baronen call ref # [id number] *er Comments: , , , Ordering Provider [...] 10. Electronically signed by:Peggy Winchester. Transcribed by: [email or web address], User Resident: Electronically Signed by: PEGGY WINCHESTER @ 08/18/2018 10:48 AM Normal [facility] Comment on above: Order Comment: , , = ========= , Ordering Provider - LIZBETH FLEMING MD , CNOVon 03-16-2018 CNOV Office Visit (SPSNAV) -------TIERA WAKEFIELD ([id number]) 1970 [facility] Time Provider Hleihaodpu69/27/18 2:55 PM Tahir ANN SPSNAV During your [...] in onemonth's time.Odalis Ahn Provider: ZORAIDA ALMANZAR [[id number]]Allergies As of Date: 03/16/2018 Noted Allergy ReactionASPIRIN [...] FOR* More...Follow-up and Disposition History RecordedEncounter Number: [id number] Status:Closed by Tahir ANN MD on 03/16/18 [facility] PROGRESSon 03-16-2018 Protein mass conc HNO ID: [id number] thor: Tahir Phillips: (none)Author Type: PhysicianType: Progress [...] chanellack in one month's time.Tahir Ann MD [facility] HISTORY PHYSICALon 8 HISTORY PHYSICAL HNO ID: [id number] thor: Sydney Reyna ([facility]) Marisol Hidalgo: (none)Author Type: Physician AssistantType: HANDPFiled: 02/18/2018 9:35 AMNote Text:LOCAL PROCEDURE HISTORY AND PHYSICAL EXAMSERVICE DATE: 02/18/2018SERVICE TIME: 9:34 AMProvisional Diagnosis/Treatment Plan: lumbar disc herniation/Right L5-E0CZBCGNacseramqhVHB: This is a 47 year old female [...] February 18, 2018 : 9:34 AM PAGER: [phone] [facility] NURSING PROGon 02-18-2018 Protein mass conc HNO ID: [id number] thor: Christine (Rn) [place], RNService: (none)Author Type: Registered NurseType: Nursing Progress NoteFiled: 02/18/2018 9:54 AMNote Text: Nursing Progress NotePatient Name: Tiera SunshineRN: [id number] Location: AV Endo/AV Endo Daily Note: 0946 - Pt arrived to post op awake, oriented x 3. Pt statespain has gone from 10/10 to 6/10 to right leg. Pt still having numbnessto right leg. Pedal push/pulls equal and strong. vSSThis note was completed by: Christine Downing, JOLENE [facility] OPERATIVE NOon 02-18-2018 OPERATIVE NO HNO ID: [id number] thor: Zoraida Fine: (none)Author Type: PhysicianType: Operative ReportFiled: 02/18/2018 9:44 AMNote Text:Pt presents for f/u. Continues to have Rt leg pain. Appearsuncomfortable, seen by Dr. Ann for surgical eval. Wants to proceed withan injection today to address the presenting symptoms. Consent obtained.Rt side was marked in the pre-op area. Pt is aware of risks, benefits,alternatives, expected outcome, equipment and personnel.[facility] time out was performed identifying the site, side and levelof procedure prior to start of procedure.[facility] - ELECTIVE PROCEDURELumbar Transforaminal Epidural [...] PT EDon 02-18-2018 PT ED HNO ID: [id number] thor: Christine (Rn) [place], RNService: (none)Author Type: [...] [facility] PT ED HNO ID: [id number] thor: Keely (Rn) Angelica, RNService: NursingAuthor Type: Registered NurseType: Patient EducationFiled: 02/18/2018 9:28 AMNote Text:PRE OP LEARNING ASSESSMENTPROCEDURE/SURGERY : PAIN MANAGEMENT: lumbar epiduralREADINESS TO LEARNCOGNITIVE ABILITY: Alert and orientedMOTIVATION TO LEARN: InterestedFAMILY SUPPORT: High - Very involved in pt carePATIENT LEARNS BEST BY: Individual InstructionVerbal InstructionFACTORS AFFECTING LEARNING: NonePHYSICAL LIMITATIONS AFFECTING LEARNING: NoneElectronically Signed By: Keely Dominguez RN [facility] CNOVon 02-16-2018 CNOV Office Visit (SPSNAV) -------YAREDTIERA TINAJERO ([id number]) 1970 FDate Time Provider Qoapednxqo95/30/18 1:55 PM Tahir ANN SPSNAV During your [...] is greater than in the backDERMATOMAL DISTRIBUTION:Right: [id number] STATUS: Minimal Ambulation/Wheelchair BoundANTIPLATELET OR ANTICOAGULATION STATUS: [...] suddenly. Her MRI shows a large extruded L5-C7qgrzwycj.I think there is a high chance that this will resolve spontaneously withnonoperative care. To manage her symptoms in the short term she may benefitfrom an epidural injection. I will see her back in one month's time.Tahir Ann MDReferring Provider: ZORAIDA ALMANZAR [[id number]]Allergies As of Date: 02/16/2018 Noted Allergy ReactionASPIRIN [...] Status:Closed by Tahir ANN MD on 02/16/18 [facility] [place] 02-16-2018 [facility] Telephone (NIQ) ----TIERA WAKEFIELD ([id number]) 1970 FDa Time Provider Ugwrkdrjsl67/30/18 ZORAIDA ALMANZAR During your visit today, we [...] Epidural Steroid Injection [1061]Order(s):SURGICAL REQUEST - ELECTIVE [[id number]] Order #: [id number]: 1Prescriptions as of 02/16/2018 Sig: FLUTICASONE 100 [...] Status:Closed by KANDY MARTIN on 02/16/18 Normal [facility] HOSPon 02-16-2018 HOSP Patient:Aissatou Wakefield AMRN: [...] following basenames: K,HCTProgress Notes ([facility] REJ):Elaine Woodson, RN, RN 02/16/2018 4:33 PM SignedPatient calledSherron saw Dr. Ann todaySherron is scheduled for an epidural injection sking for pain medication for relief prior to injectionReturn call to [phone] Griffin LPN 02/17/2018 9:21 AM SignedThe prescription you requested has been called in to Dr Tracy dejesus at [facility] to pt and advised.Pt verbalized understanding.Progress Notes ([facility]):Lisa Elizabeth 02/16/2018 1:54 PM SignedPt at check out scheduled for injection on 02/18/[address] Almanzar at 9AMRight L5-S1 TFESI-DM/-ThinMallyll sign Ermelinda Martin 02/16/2018 2:49 PM SignedESR Rossi Martin 02/16/2018 2:51 PM SignedEsr done Normal [facility] PROGRESSon 02-16-2018 Protein mass conc HNO ID: [id number] thor: Tahir Phillips: (none)Author Type: PhysicianType: Progress [...] her back in one month'stime.Tahir Ann MD [facility] Protein mass conc HNO ID: [id number] thor: Tahir Phillips: (none)Author Type: PhysicianType: Progress [...] is greater than in the backDERMATOMAL DISTRIBUTION:Right: [id number] STATUS: Minimal Ambulation/Wheelchair BoundANTIPLATELET OR ANTICOAGULATION STATUS: [...] 16, 2018 : 1:15 PM PAGER: Tyrell [facility] JAVIERDanilo 02-15-2018 CNOV Office Visit (SPNMAV) -------TIERA WAKEFIELD ([id number]) 1970 FDate Time Provider Cqodieyxqz12/29/18 1:20 PM ZORAIDA ALMANZAR SPNMAV During your [...] side. [place] over past [place].Other Issues Addressed at [...] Official reports pending.Loss of disc ht at L5/d3HRABJVYAEJ:See diagnosis.PLAN:Discussed various options including non-surgical and surgical [...] right-sided sciatica [M54.41]Order(s):MRI LUMBAR SPINE WO IVCON [[id number]] Order #: [id number] FUTURE CONSULT TO SPINE SURGERY [[id number]] Order #: [id number]: 1Prescriptions as of 02/15/2018 Sig: FLUTICASONE 100 MCG-SALMETERO* Advair Diskus 100 mcg-50 mcg/* ALBUTEROL SULFATE 2.5 MG/3 ML* albuterol sulfate 2.5 mg/3 mL* BACLOFEN 10 MG TABLET CITALOPRAM 20 MG TABLET citalopram 20 mg tablet METHYLPREDNISOLONE 4 MG TABLE* METHYLPREDNISOLONE 4 MG TABLE* methylprednisolone 4 mg table*Problem List As Of Date: 02/15/2018(None) Status:Closed by ZORAIDA ALMANZAR DO on 02/15/18 Normal [facility] MRI LUMBAR SPINE WO IVCONon 02-15-2018 [...] crest and assume there are 5 lumbar-type vertebrae.Fiberglass Laminator: PSCB Transcribe Date/Time: Feb 15 2018 5:30PDictated by : GERALD MARK MDThis examination was interpreted and the report reviewed and electronically signed by: GERALD MARK MD on Feb 15 2018 5:35PM [id number] [place] PROGRESSon 02-15-2018 Protein mass conc HNO ID: [id number] thor: Zoraida Fine: (none)Author Type: PhysicianType: Progress [...] on side. Hasbeen seen in ED in [place] numerous times over past week.Other Issues Addressed [...] Official reports pending.Loss of disc ht at L5/r2JYVEPASXIT:See diagnosis.PLAN:Discussed various options including non-surgical and surgical [...] to consulting/requestingphysic corinna.Zoraida Almanzar DO, MBA Normal [facility] SR-XR Spine Lumbosacral 2 or 3 Views IMPORTon 02-12-2018 SR-XR Spine Lumbosacral 2 or 3 Views IMPORT Images were obtained outside of [facility] [id number] Normal [facility] Vital Signs Date Time Vital Sign Value Performing Clinician Facility 08-16-2024 14:40-0400 Body height 160 cm Ubaldo Kaiser DO Work Phone: [facility] 08-16-2024 14:40-0400 Body mass index (BMI) [Ratio] 28.34 kg/m2 Ubaldo Kaiser DO Work Phone: [facility] 08-16-2024 14:40-0400 Body weight 72.58 kg Ubaldo Kaiser DO Work Phone: [facility] 07-13-2024 09:56-0400 Body height 160 cm Jeanette Tijerina PA [facility] 07-13-2024 09:56-0400 Body mass index (BMI) [Ratio] 29.16 kg/m2 Jeanette Tijerina PA Work Phone[facility] 07-13-2024 09:56-0400 Body temperature 98.29 [degF] Jeanette Tijerina PA Work Phone: [facility] [employer] 07-13-2024 09:56-0400 Body weight 74.66 kg [facility] 07-13-2024 09:56-0400 Diastolic blood pressure 84 mm[Hg] Jeanette Tijerina PA Work Phone: [facility] 07-13-2024 09:56-0400 Heart rate 64 /min Jeanette Tijerina PA Work Phone: [facility] 07-13-2024 09:56-0400 Respiratory rate 16 /min Jeanette Tijerina PA [facility] 07-13-2024 09:56-0400 SaO2% (BldA) [Mass fraction] 99 % Jeanette Tijerina PA Work Phone: [facility] 07-13-2024 09:56-0400 Systolic blood pressure 142 mm[Hg] Jeanette Tijerina PA Work Phone: [facility] 06-29-2024 15:03-0400 Body mass index (BMI) [Ratio] 29.05 kg/m2 Jeanette Tijerina PA Work Phone: [facility] [employer] 06-29-2024 15:03-0400 Body temperature 97.59 [degF] Jeanette Martinezne PA Work Phone: [facility] [employer] 06-29-2024 15:03-0400 Body weight 74.39 kg Jeanette Martinezne PA Work Phone: [facility] [employer] 06-29-2024 15:03-0400 Diastolic blood pressure 71 mm[Hg] Jeanette Martinezne PA Work Phone: [facility] [employer] 06-29-2024 15:03-0400 Heart rate 61 /min Jeanette Martinezne PA Work Phone: [facility] [employer] 06-29-2024 15:03-0400 SaO2% (BldA) [Mass fraction] 99 % Jeanette Tijerina PA Work Phone: [facility] [employer] 06-29-2024 15:03-0400 Systolic blood pressure 130 mm[Hg] Jeanette Tijerina PA Work Phone: [facility] [employer] [facility] 06-21-2024 14:09-0500 Body height 160 cm Ubaldo Kaiser DO Work Phone: [facility] 06-21-2024 14:09-0500 Body mass index (BMI) [Ratio] 28.34 kg/m2 Ubaldo Kaiser DO Work Phone: [facility] [employer] 06-21-2024 14:09-0500 Body weight 72.58 kg Ubaldo Kaiser DO Work Phone: [facility] 06-10-2024 10:37-0500 Body height 160 cm [facility] 06-10-2024 10:37-0500 Body mass index (BMI) [Ratio] 28.74 kg/m2 [facility] 06-10-2024 10:37-0500 Body temperature 98.4 [degF] [facility] [address] [facility] 06-10-2024 10:37-0500 Body weight 73.6 kg [facility] 6 [facility] 06-10-2024 10:37-0500 Diastolic blood pressure 87 mm[Hg] [facility] 06-10-2024 10:37-0500 Heart rate 67 /min [facility] 06-10-2024 10:37-0500 Respiratory rate 14 /min [facility] [address] [facility] 06-10-2024 10:37-0500 SaO2% (BldA) [Mass fraction] 96 % [facility] 06-10-2024 10:37-0500 Systolic blood pressure 122 mm[Hg] [facility] 06-08-2024 10:16-0500 Body mass index (BMI) [Ratio] 28.91 kg/m2 Daniel Gold MD Work Phone: [facility] 06-08-2024 10:16-0500 Body weight 74.03 kg Daniel Gold MD Work Phone: [facility] 05-24-2024 14:12-0500 Body mass index (BMI) [Ratio] 29.05 kg/m2 Zeynep BRAGG Work Phone: [facility] 05-24-2024 14:12-0500 Body weight 74.39 kg Zeynep BRAGG Work Phone: [facility] 05-24-2024 14:12-0500 Diastolic blood pressure 76 mm[Hg] Zeynep BRAGG Work Phone: [facility] 05-24-2024 14:12-0500 Systolic blood pressure 120 mm[Hg] Zeynep BRAGG Work Phone: [facility] 12-29-2023 20:04-0400 Body temperature 97.7 [degF] Manav Phillip [facility] 12-29-2023 20:04-0400 Diastolic blood pressure 92 mm[Hg] Manav Phillip [facility] 12-29-2023 20:04-0400 Heart rate 62 /min Manav Phillip [facility] 12-29-2023 20:04-0400 Respiratory rate 18 /min Manav Phillip [facility] 12-29-2023 20:04-0400 SaO2% (BldA) [Mass fraction] 97 % Manav Phillip [facility] 12-29-2023 20:04-0400 Systolic blood pressure 150 mm[Hg] [facility] Phillip [facility] 12-23-2023 09:37-0400 Body mass index (BMI) [Ratio] 28.87 kg/m2 Ben De Leon [facility] Work Phone: [facility] 12-23-2023 09:37-0400 Body temperature 98.01 [degF] Ben De Leon [facility] Work Phone: [facility] 12-23-2023 09:37-0400 Body weight 73.94 kg Ben De Leon [facility] Work Phone: [facility] 12-23-2023 09:37-0400 Diastolic blood pressure 70 mm[Hg] Ben De Leon DO Work Phone: [facility] 12-23-2023 09:37-0400 Heart rate 68 /min Ben De Leon DO Work Phone: [facility] 12-23-2023 09:37-0400 SaO2% (BldA) [Mass fraction] 98 % Ben De Leon [facility] Work Phone: [facility] 12-23-2023 09:37-0400 Systolic blood pressure 110 mm[Hg] Ben De Leon DO Work Phone: [facility] 11-16-2023 15:55-0400 Body height 161.29 cm [facility] 11-16-2023 15:55-0400 Body mass index (BMI) [Ratio] 28.4 kg/m2 [facility] 11-16-2023 15:55-0400 Body temperature 98.4 [degF] [facility] 11-16-2023 15:55-0400 Body weight 73.93 kg [facility] 11-16-2023 15:55-0400 Heart rate 63 /min [facility] 11-16-2023 15:55-0400 Respiratory rate 18 /min [facility] 11-16-2023 15:55-0400 SaO2% (BldA) [Mass fraction] 98 % [facility] 08-04-2023 14:46-0400 Blood Pressure Location [facility] 08-04-2023 14:46-0400 Body temperature 97.52 [degF] [facility] 08-04-2023 14:46-0400 Diastolic blood pressure 70 mm[Hg] [facility] 08-04-2023 14:46-0400 Heart rate 84 /min [facility] 08-04-2023 14:46-0400 Systolic blood pressure 113 mm[Hg] [facility] 05-19-2023 08:50-0500 Blood Pressure Location [facility] 05-19-2023 08:50-0500 Body temperature 96.8 [degF] [facility] 05-19-2023 08:50-0500 Diastolic blood pressure 76 mm[Hg] [facility] 05-19-2023 08:50-0500 Heart rate 62 /min Anna Sonya [facility] 05-19-2023 08:50-0500 Systolic blood pressure 120 mm[Hg] Anna Hassan [facility] 02-18-2023 10:30-0400 Body height 161.29 cm Christina [place] Other [facility] Other 02-18-2023 10:30-0400 Body mass index (BMI) [Ratio] 27.9 kg/m2 Christina Montana Other [facility] Other 02-18-2023 10:30-0400 Body temperature 98.2 [degF] Christina Montana Other [facility] Other 02-18-2023 10:30-0400 Body weight 72.58 kg Christina Montana Other [facility] Other 02-18-2023 10:30-0400 Diastolic blood pressure 78 mm[Hg] Christina Montana Other [facility] Other 02-18-2023 10:30-0400 Respiratory rate 18 /min Christina Rameymond Other [facility] Other 02-18-2023 10:30-0400 SaO2% (BldA) [Mass fraction] 98 % Christina Nan Other [facility] Other 02-18-2023 10:30-0400 Systolic blood pressure 134 mm[Hg] Christina Nan Other [facility] Other 12-20-2022 11:40-0400 Body height 161.29 cm Christina Nan Other [facility] Other 12-20-2022 11:40-0400 Body mass index (BMI) [Ratio] 27.55 kg/m2 Christina Montana Other [facility] Other 12-20-2022 11:40-0400 Body temperature 97 [degF] Christina Rameymond Other [facility] Other 12-20-2022 11:40-0400 Body weight 71.67 kg Christina Montana Other [facility] Other 12-20-2022 11:40-0400 Diastolic blood pressure 79 mm[Hg] Christina Montana Other [facility] Other 12-20-2022 11:40-0400 SaO2% (BldA) [Mass fraction] 98 % Christina Montana Other [facility] Other 12-20-2022 11:40-0400 Systolic blood pressure 142 mm[Hg] Christina Nan Other GLO Other 11-17-2022 15:48-0400 Blood Pressure Location Anna Hassan [facility] 11-17-2022 15:48-0400 Body temperature 97.16 [degF] Anna Hassan [facility] 11-17-2022 15:48-0400 Diastolic blood pressure 75 mm[Hg] Anna [facility] 11-17-2022 15:48-0400 Heart rate 63 /min Anna Hassan [facility] 11-17-2022 15:48-0400 Systolic blood pressure 124 mm[Hg] Anna Hassan [facility] 07-26-2021 11:45-0400 Body height 161.29 cm Matteo Reneeky Other GLO Other 07-26-2021 11:45-0400 Body mass index (BMI) [Ratio] 28.94 kg/m2 Matteo Raza Other GLO Other 07-26-2021 11:45-0400 Body weight 75.3 kg Matteo Reneeky Other GLO Other 07-26-2021 11:45-0400 Diastolic blood pressure 80 mm[Hg] Matteo Raza Other GLO Other 07-26-2021 11:45-0400 SaO2% (BldA) [Mass fraction] 99 % Matteo Person Other GLO Other 07-26-2021 11:45-0400 Systolic blood pressure 120 mm[Hg] Matteo Person Other GLO Other Encounters Encounter Date Encounter Type Care [...] minutes Jeanette BRAGG Work Phone: Maggy Hernandez [facility] Comment on above: Encounter for postop erative care (Primary Dx); Dyspareunia, female Start: 07-13-2024 End: 07-13-2024 ambulatory [facility] Start: 07-08-2024 End: 07-08-2024 ambulatory [facility] Facility:[facility] Start: 06-29-2024 End: 06-29-2024 Postop follow up visit related to original px Jeanette BRAGG Work Phone: Maggy Hernandez [facility] Comment on above: Encounter for postop erative care (Primary Dx); Post-op pain Start: 06-29-2024 End: 06-29-2024 ambulatory [facility] Start: 06-29-2024 End: 06-29-2024 Telephone encounter Regina Monsivais RN [facility] Gynecology Oncology, A Department of [facility] Start: 06-25-2024 End: 06-25-2024 Telephone encounter Neeta Arnold [facility] Darlin haro Comment on above: Post-op Problem Start: 06-23-2024 End: 06-23-2024 Evaluation and management of inpatient ELIS PALMA [facility] Start: 06-23-2024 End: 06-23-2024 Evaluation and management of inpatient DANIEL Landen GOLD [facility] Start: 06-21-2024 End: 06-21-2024 ambulatory UBALDO KAISER Not Available Start: 06-21-2024 End: 06-21-2024 Bamboo flowsheet Ubaldo Kaiser DO Work Phone: [facility] Start: 06-21-2024 End: 06-21-2024 Bamboo flowsheet Ubaldo Chaidez Reji DO [facility] Start: 06-21-2024 End: 06-21-2024 Office outpatient new 45 minutes Ubaldo Chaidez Reji DO Work Phone: [facility] Comment on above: Sensorineural hearin g loss (SNHL) of right ear, unspecified hearing status on contralateral side (Primary Dx); Pulsatile tinnitus; Tinnitus, unspecified laterality Start: 06-15-2024 End: 06-15-2024 Bamboo flowsheet Florence Howard AUD Work Phone: [facility] Start: 06-15-2024 End: 06-15-2024 Bamboo flowsheet Florence Howard AUD Work Phone: [facility] Start: 06-15-2024 End: 06-15-2024 Patient encounter procedure Florence S Lee AUD Work Phone: [facility] Comment on above: Sensorineural hearin g loss, bilateral (Primary Dx); Right-sided tinnitus Start: 06-15-2024 End: 06-15-2024 ambulatory FLORENCE HOWARD Not Available Start: 06-10-2024 ambulatory GERALD [facility] Start: 06-10-2024 End: 06-10-2024 Patient encounter procedure [facility] Pat [facility] [address] [facility] Comment on above: Bartholin cyst; Preop testing Start: 06-10-2024 End: 06-10-2024 Patient encounter status [facility] [address] Start: 06-10-2024 End: 06-10-2024 ambulatory DANIEL Schuster RAFAEL [facility] Start: 06-10-2024 Encounter for other preprocedural examination [facility] Start: 06-09-2024 End: 06-09-2024 Orders Only Daniel Gold MD Work Phone: [facility] Gynecology Oncology, A Department of [facility] Comment on above: Bartholin cyst (Prim jenny Dx); Preop testing Start: 06-09-2024 End: 06-09-2024 Patient encounter status Daniel Gold MD Work Phone: [facility] Start: 06-08-2024 End: 06-08-2024 ambulatory DANIEL GOLD [facility] Start: 06-08-2024 End: 06-08-2024 Office outpatient new 60 minutes Daniel Gold MD Work Phone: [facility]ne[facility] Oncology, A Department of [facility] Comment on above: Bartholin cyst (Prim [...] 12-29-2023 Emergency department patient visit Manav Fisher [facility] Start: 12-23-2023 End: 12-23-2023 ambulatory BEN DE LEON Not Available Start: 12-23-2023 End: 12-23-2023 Office outpatient new 45 minutes Ben De Leon DO Work Phone: [facility] Comment on above: Puncture wound of ri ght foot, initial encounter (Primary Dx) Start: 11-16-2023 End: 11-16-2023 ambulatory [facility] Work Phone: Start: 11-16-2023 End: 11-16-2023 Patient encounter procedure [facility] Work Phone: Start: 09-07-2023 End: 09-07-2023 ambulatory [facility] Start: 09-07-2023 End: 09-07-2023 Patient encounter procedure Elina Boyer [facility] Start: 08-04-2023 End: 08-04-2023 ambulatory [facility] Start: 08-04-2023 End: 08-04-2023 Patient encounter procedure Anna Hassan [facility] Start: 07-14-2023 End: 07-14-2023 Lab Drop off Castro Talal Sarmini [facility] Start: 07-14-2023 End: 07-14-2023 ambulatory Castro Talal Sarmini Facility:[facility] [place] Start: 07-14-2023 End: 07-14-2023 ambulatory Castro Talal Sarmini Facility::[id number] Start: 05-19-2023 End: 05-19-2023 Patient encounter procedure Anna Hassan [facility] Start: 05-12-2023 End: 05-12-2023 Lab Drop off Matthew Carrasco [facility] Start: 02-18-2023 End: 02-18-2023 ambulatory Christina Montana Other GLO Other Start: 02-18-2023 Office outpatient vi sit 15 minutes Christina Nan [facility] Start: 12-20-2022 End: 12-20-2022 ambulatory Christina Nan Other GLO Other Start: 12-20-2022 Office outpatient vi sit 15 minutes Christina Nan [facility] Start: 12-01-2022 End: 12-01-2022 Patient encounter procedure Anna A Sonya [facility] Start: 11-17-2022 End: 11-17-2022 Patient encounter procedure Anna A Sonya [facility] Start: 07-18-2022 End: 07-18-2022 Patient encounter procedure Annasanto Casonmetz [facility] Start: 06-05-2022 Encounter for genera l adult medical examination without abnormal findings DR GERALD TAVARES [facility] Start: 06-04-2022 End: 06-05-[address] HERB MEDEL Facility:[facility] Start: 06-04-2022 End: 06-05-2022 Encounter for general adult medical examination without abnormal findings DR GERALD TAVARES Facility:[facility] Start: 05-30-2022 End: 05-30-[address] LIZBETH TANG Facility:[facility] Start: 01-22-2022 End: 01-22-[address] GERALD TAVARES Facility:[facility] Start: 09-25-2021 End: 09-26-[address] DERIK LLOYD Facility: Start: 08-22-2021 (Procedure) Short Mat[facility]o [facility] Start: 08-22-2021 End: 08-22-2021 ambulatory Matteo Person Other GLO Other Start: 08-12-2021 End: 08-12-2021 ambulatory Matteo Person Other GLO Other Start: 08-12-2021 Telephone encounter Matteo Person [facility] Start: 07-30-2021 End: 07-30-2021 ambulatory Matteo Person Other GLO Other Start: 07-30-2021 Telephone encounter Matteo Person [facility] Start: 07-26-2021 End: 07-26-2021 ambulatory Matteo Person Other GLO Other Start: 07-26-2021 Office outpatient vi sit 25 minutes Matteosavita Person [facility] [place] Start: 12-01-2018 End: 12-02-2018 Patient encounter procedure LIZBETH FLEMING Facility:[facility] Start: 03-16-2018 End: 03-17-2018 Patient encounter procedure Tahir ANN [facility] Start: 02-18-2018 End: 02-18-2018 Patient encounter procedure [facility] Start: 02-16-2018 End: 02-17-2018 Patient encounter procedure Tahir PATEL [facility] Start: 02-15-2018 Patient encounter procedure [facility] Start: 02-15-2018 End: 02-15-2018 Patient encounter procedure [facility] Procedures Date Procedure Procedure Detail Performing Clinician [...] Hassan Start: 12-01-2018 ANESTH SURGERY OF SHOULDER EDISNOJIN Jones Start: 12-01-2018 Arthroscopy shoulder rotator cuff [...] Td Vaccines (2 - Td or Tdap) [facility] Start: 05-02-2031 Screening for malign ant neoplasm of colon [facility] Start: 04-27-2028 Screening for malign ant neoplasm of cervix [facility] Start: 05-24-2027 Screening for malign ant neoplasm of cervix Pap Smear [facility] Start: 04-27-2026 Screening for malign ant neoplasm of cervix Pap Smear [facility] Start: 07-13-2025 Adult BMI Screening Adult BMI Screen ing [facility] Start: 07-13-2025 Tobacco Screening Tobacco Screening [facility] Start: 06-29-2025 Adult BMI Screening Adult BMI Screen [facility] Start: 06-23-2025 Adult BMI Screening Adult BMI Screen ing [facility] Start: 06-23-2025 Tobacco Screening Tobacco Screening [facility] Start: 06-10-2025 Adult BMI Screening Adult BMI Screen ing [facility] Start: 06-10-2025 Tobacco Screening Tobacco Screening [facility] Start: 06-08-2025 Adult BMI Screening Adult BMI Screen ing [facility] Start: 12-19-2024 Influenza vaccination Influenz a Vaccine (Season Ended) [facility] Start: 08-16-2024 End: 08-16-2024 Patient encounter procedure 08/16/2024 3:30 PM EDT Office Visit [facility] [place] [address] [place] [address] Ubaldo Kaiser S, DO [address] [place] [address] Arrived [facility] Comment on above: Arrived Start: 08-16-2024 End: [...] 2:30 PM EDT Office Visit Maggy [facility] [address] [place] [address], [place] [address] Jeanette Tijerina PA [address] [facility] [place] [address] Maggy Hernandez [facility] Start: 07-12-2024 End: 07-12-2024 Patient encounter procedure 07/12/2024 8:30 AM EDT Office Visit [facility] [address] [place] [phone] Herb Medel DO [address] [place] [address] [facility] Start: 07-06-2024 End: 07-06-2024 Patient encounter procedure 07/06/2024 1:30 PM EDT Office Visit Maggy Hernandez [facility] [address] [place] [phone] Jeanette Tijerina PA [address] [facility] [place] [address] Maggy Hernandez [facility] Start: 06-29-2024 End: 06-29-2024 Patient encounter procedure 06/29/2024 3:00 PM EDT Office Visit Maggy Hernandez [facility] [address] [place] [address], [place] [address] Jeanette Tijerina PA [address] [facility] [place] [address] [facility]gy [facility] Start: 06-23-2024 End: 06-23-2024 Admission to same day surgery center 06/23/2024 7:30 AM EST - 06/23/2024 9:15 AM EST Surgery [facility] [address] [place] [phone] [place] [address] [place] [address], [address] [place] [address] EXCISION CYST BARTHOLIN [86654 (CPT )] [facility] Comment on above: EXCISION CYST BARTHO RUBI [41047 (CPT )] Start: 06-23-2024 End: 06-23-2024 Exc bartholins gland/cyst EXCISION CYST BARTHOLIN Abscess of Bartholin gland 06/23/2024 7:30 AM EST [facility] Start: 06-23-2024 Subsequent hospital visit by physician 06/23/2024 7:30 AM EST Hospital Encounter [facility] [address] [place] [phone] Daniel Gold MD [address] [place] [address], [address] [place] [address] [facility] Start: 06-21-2024 End: 06-21-2024 Patient encounter procedure 06/21/2024 2:00 PM EST [facility] [address] [place] [address] Ubaldo Kaiser, DO [address] [place] [address] [facility] Start: 06-21-2024 End: 06-21-2026 US Heart Transthoracic Transthoracic Echo (TTE) Complete Echocardiography Routine Pulsatile tinnitus Expected: 06/21/2024 (Approximate), Expires: 06/21/2026 [facility] Work Phone: Comment on above: Expected: 06/21/2024 (Approximate), Expires: 06/21/2026 Start: 06-15-2024 End: 06-15-2024 Patient encounter procedure 06/15/2024 1:45 PM EST Office Visit [facility] [address] [place] [phone] Florence Howard, AUD [address] [place] [address] Arrived [facility] Comment on above: Arrived Start: 06-13-2024 End: 06-13-2024 Patient encounter procedure 06/13/2024 10:45 AM EST [facility] [address] [phone] Florence Howard, AUD [address] [place] [address] [facility] Start: 06-10-2024 End: 06-10-2024 Patient encounter procedure 06/10/2024 10:30 AM EST [facility] On [address] [address] [facility] Start: 06-09-2024 End: 06-09-2025 XR Chest PA and Lateral X-ray chest 2 views Imaging Routine Bartholin cyst Preop testing Expected: 06/09/2024, Expires: 06/09/2025 [facility] Comment on above: Expected: 06/09/2024 , [...] EST Office Visit [facility] [address] [place] [phone] Zeynep Barbour PA [address] [place], [place] [id number] Arrived [facility] Comment on above: Arrived Start: 05-02-2024 End: 05-02-2024 Patient encounter procedure 05/02/2024 9:00 AM EST Office Visit [facility] [address] [place] [phone] Herb Medel DO [address] [place], [place] [id number] [facility] Start: 12-20-2023 COVID-19 Vaccine ( season) COVID-19 Vaccine ( season) [facility] Start: 12-20-2023 Influenza vaccination N [facility] Start: 06-04-2023 Screening for malign ant neoplasm of breast Mammogram [facility] Start: 10-20-2019 Administration of varicella zoster vaccine Zoster (Shingles) Vaccine (1 of 2) [facility] Start: 10-20-1987 Adult BMI Follow Up Plan Adult BMI F ollow Up Plan [facility] Start: 1981 Depression Screening Depression Scre ening [facility] Start: 1981 Tobacco Screening Tobacco Screening [facility] Start: 1969 Screening for malign ant neoplasm of colon [facility] End: 06-09-2025 CBC W Auto Differential panel - Blood CBC with auto diff Lab Routine Bartholin cyst Preop testing 1 Occurrences starting 06/09/2024 until 06/09/2025 [facility] Work Phone: Comment on above: 1 Occurrences starti ng 06/09/2024 until 06/09/2025 End: 06-09-2025 Comprehensive metabolic 2000 panel - Serum or Plasma Comprehensive metabolic panel Lab Routine Bartholin cyst Preop testing 1 Occurrences starting 06/09/2024 until 06/09/[address] [facility] [address] Comment on above: 1 Occurrences starti ng 06/09/2024 until 06/09/2025 End: 06-09-2025 ECG 12 lead ECG 12 lead ECG Routine Bartholin cyst Preop testing 1 Occurrences starting 06/09/2024 until 06/09/2025 [facility] Comment on above: 1 Occurrences starti ng 06/09/2024 until 06/09/2025 THIN PREP TIS PAP AN D HR HPV DNA THIN PREP TIS PAP AND HR HPV DNA Pathology and Cytology Routine Well woman exam with routine gynecological exam Ordered: 05/24/2024 [facility] Comment on above: Ordered: 05/24/2024 [facility] Immunizations Immunization Date Immunization Notes Care Provider Fa cility 12-23-2023 tetanus toxoid, reduced diphtheria toxoid, and acellular pertussis vaccine, adsorbed Ben De Leon DO Work Phone: [facility] 03-18-2021 SARS-CoV-2 (COVID-19 ) mRNA BNT-162b2 vax [facility] Comment on above: Result Comment: 2022: [id number] 05-14-2012 hepatitis A vaccine, adult dosage Anna Hassan [facility] 05-14-2012 hepatitis B vaccine, pediatric or pediatric/adolescent dosage Anna Hassan [facility] 04-05-2009 novel [id number], preservative-free, injectable Ubaldo Kaiser DO Work Phone: [facility] 04-05-2009 influenza virus vaccine, unspecified formulation Daniel Gold MD Work Phone: [facility] NEGATED: Highlighted row has not occurred!05-18-2023 influenza virus vaccine, unspecified formulation Anna Hassan [facility] NEGATED: Highlighted row has not occurred!04-24-2023 influenza virus vaccine, unspecified formulation Matthew Carrasco [facility] NEGATED: Highlighted row has not occurred!02-27-2021 influenza virus vaccine, unspecified formulation Anna Hassan [facility] Payers Date Payer Category Payer [facility] [id number] 2021 [facility] Care - O [id number] 2018 Unknown [id number] 1969 Unknown [id number] 2.16.840.1.015496.3.579. 2.647 1969 Unknown [id number] 2.16.840.1.785155.3.579. 2.593 1969 Unknown [id number] 2.16.840.1.995765.3.579. 2.593 1969 Unknown [id number] 2.16.840.1.130343.3.579. 2.593 1969 Unknown [id number] 2.16.840.1.600122.3.579. 2.593 1969 Unknown [id number] 2.16.840.1.251842.3.579. 2.593 1969 Unknown [id number] 2.16.840.1.093923.3.579. 2.128 1969 Unknown [id number] 2.16.840.1.199247.3.579. 2.1285 1969 Unknown [id number] 2.16.840.1.365949.3.579. 2.1285 1969 Unknown [id number] 2.16.840.1.788017.3.579. 2.1285 1969 Unknown [id number] 2.16.840.1.692702.3.579. 2.1285 1969 Unknown [id number] 2.16840.1.813523.3.579. 2.1285 1969 Unknown [id number] 2.0.1.559966.3.579. 2.1285 1969 Unknown [id number] 2.16840.1.798451.3.579. 2. 1969 Unknown [id number] 2.16840.1.458900.3.579. 2. 1969 Unknown [id number] 2.16840.1.982124.3.579. 2.72 1969 Unknown [id number] 2.16840.1.359113.3.579. 2.72 1969 Unknown [id number] 2.16.840.1.692021.3.579. 2.72 1969 Unknown [id number] 2.16.840.1.539127.3.579. 2.72 1969 Unknown [id number] 2.16.840.1.566537.3.579. 2.128 1969 Unknown [id number] 2.16.840.1.567180.3.579. 2.1285 1969 Unknown [id number] 2.16.840.1.500202.3.579. 2.9 1969 Unknown [id number] 2.16.840.1.874088.3.579. 2.9 1969 Unknown [id number] 2.16.840.1.509260.3.579. 2.9 1969 Unknown [id number] 2.16.840.1.452834.3.579. 2.9 1969 Unknown [id number] 2.16.840.1.397555.3.579. 2.1259 1959 [id number] 2.16.840.1.034396.19 Self-pay Self Pay [id number] Unknown [id number] Social History Date Type Detail Facility Start: 04-27-2023 End: 08-16-2024 Sex Assigned At [facility] Start: 05-02-2021 End: 06-21-2024 Tobacco smoking status Ex-smoker (finding) [facility] Comment on above: denies Tobacco smoking status Never [facility] Start: 1970 Sex Assigned At Female F [facility] Start: 11-15-2022 Tobacco smoking stat us [facility]VIS Never smoked tobacco [facility] Start: 12-23-2023 End: 08-16-2024 Alcoholic beverage intake Lifetime non-drinker (finding) [facility] Start: 04-27-2023 End: 08-16-2024 History of Social function [facility] Start: 11-15-2022 Alcohol Comment caffeine: 1-2 cups/d ay [facility] Start: 11-10-2022 Gender identity Identifies as female gender (finding) [facility] Start: 04-20-1985 End: 04-20-2015 History of tobacco use Current smoker [facility] Start: 04-20-1985 End: 04-20-2015 History of tobacco use Cigarette Smoker [facility] Start: 10-04-2021 End: 06-10-2024 Tobacco use and exposure Smokeless tobacco non-user [facility] Start: 10-04-2021 End: 07-13-2024 Alcoholic beverage intake Ex-drinker (finding) [facility] Start: 1970 Sex assigned at Not on file P [facility] Start: 11-23-2014 Sex Female (finding) [facility] History of tobacco use Passive smoker Pro [facility] Functional Status Date Assessment Result Facility 12-29-2023 Functional Status N/A [facility] 08-04-2023 Functional Status N/A [facility] 05-19-2023 Functional Status N/A [facility] 11-17-2022 Functional Status N/A [facility] Clinical Notes 07-26-2021 to 08-16-2024 [...] 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/20/[address] [facility] [id number] DOI 07/29/12 Asthma Atypical nevi Austin's esophagus 06/20/2024 Bartholin cyst 06/08/2024 Bursitis of shoulder 06/30/2016 Cervical spondylosis with radiculopathy 06/20/2024 Colon polyp 06/20/2024 Dysphagia 06/20/2024 Full thickness rotator cuff tear 03/12/2014 840.6 LEFT, RECURRENT [facility] [id number] DOI 07/29/12 History of colon polyps 06/20/2024 History of diverticulitis 06/20/2024 History of repair of ACL 2005 History of shoulder surgery Irregular bowel habits 06/20/2024 Irregular Z line of esophagus 06/20/2024 Lumbar disc herniation 02/16/2018 Added automatically from request for surgery [id number] Lumbosacral disc herniation 06/20/2024 Osteoarthritis 06/20/2024 RLQ [...] Insecurity: No Food Insecurity (06/10/2024) Received from [facility] Hunger Screening Within the past [...] help tolerate tinnitus. documented in this encounter [facility] 07-13-2024 History of Presen t illness [...] 06/23/2024 Performed by Daniel Gold MD at [facility] KNEE SURGERY Left 2008 meniscus SHOULDER SURGERY Left 7 total shoulder surgery, [id number] Past Medical History: Diagnosis Date Asthma Colon [...] May continue well woman care with primary printing equipment mechanic apprentice. Hematuria - patient deferred UA today. Explained [...] moisturizers and lubricants. Explained that moisturizers provide skilled nursing relief for vaginal dryness and are used [...] of lubricants include [place], Astroglide, Uberlube, Pjur, [place], Good Clean Love, and coconut oil. Discussed proper use, safety, potential side effects from moisturizers and lubricants. Samples of various lubricants were provided today as well. Discussed further management by her printing equipment mechanic apprentice and estrace vaginal cream as a secondary option if needed. She may also return to our team for sexual health concerns if needed. *The patient has a documented plan of care to address pain. All questions were answered to the patient's satisfaction. She is agreeable to this plan of care. *This note was completed using a voice accounting office manager system. Every effort was made to ensure accuracy. However, inadvertent computerized accounting office manager errors may be present. *An evaluation and [...] Posada 07/13/24 1033 [facility] History of Presen t illness Narrative Subjective: Tiera Wakefield is a 53 y.o. female who is s/p a excision of right bartholin's gland on 06/23/24. Pathology: pending Patient reports extensive pain and slight bleeding since her surgery. She states this is moderately controlled with ibuprofen. She ran out of Armetheon which she states she was taking mostly [...] 06/23/2024 Performed by Daniel Gold MD at [facility] KNEE SURGERY Left 2008 meniscus SHOULDER SURGERY Left 7 total shoulder surgery, [id number] Past Medical History: Diagnosis Date Asthma Colon [...] regimen involving ibuprofen 2-3 times daily with [place] being used at night as needed. May also use ice packs for additional relief. Return to clinic in 2-3 weeks prior to returning to work. An OARRS report was pulled today and her risk score was 310. [place] was given #7, to be taken nightly [...] *This note was completed using a voice accounting office manager system. Every effort was made to ensure accuracy. However, inadvertent computerized accounting office manager errors may be present. .Total time spent was 20 minutes: Preparing to see the patient (e.g., review of tests) Performing a medically appropriate examination and/or evaluation Ordering medications, tests, or procedures Documenting clinical information in the electronic or other health record Care coordination (not separately reported) Jeanette Tijerina PA-C, RD, IF MAHSA Posada 06/29/24 1526 documented in this encounter [employer] 06-29-2024 Miscellaneous Notes Patient called in w/concerns [...] for a 1 week PO appointment in [place]. Offered patient 12:30 or 3:00 today with JENNIFER Reid. Patient agreeable to coming in at 3:00. Address for [place] office given to patient and call was ended. documented in this encounter [facility] 06-29-2024 Telephone encounter Note Patient called [...] for a 1 week PO appointment in [place]. Offered patient 12:30 or 3:00 today with JENNIFER Reid. Patient agreeable to coming in at 3:00. Address for [place] office given to patient and call was ended. [facility] 06-25-2024 Miscellaneous Notes Contract: 166 Had cyst and gland removed on 06/23 and she is still bleeding Contract: 166 Paged Resident to [facility] Resident called back and relayed info to call documented in this encounter [facility] 06-25-2024 Telephone encounter Note Contract: 166 Had cyst and gland removed on 06/23 and she is still bleeding [facility] 06-25-2024 Telephone encounter Note Contract: 166 Paged Resident to [facility] Resident called back and relayed info to call [facility] 06-21-2024 History of Presen t illness Narrative [...] 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/20/[address] [facility] [id number] DOI 07/29/12 Asthma (CMS/[facility]) Atypical nevi Austin's esophagus 06/20/2024 Bartholin cyst 06/08/2024 Bursitis of shoulder 06/30/2016 Cervical spondylosis with radiculopathy 06/20/2024 Colon polyp 06/20/2024 Dysphagia 06/20/2024 Full thickness rotator cuff tear 03/12/2014 840.6 LEFT, RECURRENT [facility] [id number] DOI 07/29/12 History of colon polyps 06/20/2024 History of diverticulitis 06/20/2024 History of repair of ACL 2005 History of shoulder surgery Irregular bowel habits 06/20/2024 Irregular Z line of esophagus 06/20/2024 Lumbar disc herniation 02/16/2018 Added automatically from request for surgery [id number] Lumbosacral disc herniation 06/20/2024 Osteoarthritis 06/20/2024 RLQ [...] Insecurity: No Food Insecurity (06/10/2024) Received from [facility] Hunger Screening Within the past [...] help tolerate tinnitus. documented in this encounter [facility] 06-15-2024 History of Presen t illness [...] sloping to a mild sensorineural hearing loss 0275-2275 Hz in the left ear. The right ear exhibited normal hearing 250-2000 Hz, sloping to a mild sensorineural hearing loss 2295-2462 Hz, returning to normal hearing at 8000 Hz. Speech Audiometry Right SRT = 15 dB and word discrimination score at 45 dBHL = 100% Left SRT = 15 dB and word discrimination score at 45 dBHL = 100% Tympanometry Normal tympanograms, bilaterally, indicating normal middle ear function Impressions: Dr. Kaiser 06-21-2024 documented in this encounter [facility] 06-10-2024 Instructions Eliana Soriano RN - 06/10/2024 10:30 AM EST Your surgery/procedure is scheduled at [facility] on 06/23/2024 at 7:30 am Arrival Time 5:30 am [facility] Address: [address] [place] [address], [address] [place] [address] in the Emergency Center Parking lot. Report to the front end manager in the Emergency/Surgery Registration lobby of the hospital. Notify your SURGEON if you develop any illness such as a cold, cough, fever, sore throat, vomiting or are hospitalized between now and your surgery. Please call Pre-Admission Clinic at [phone] if you have any questions prior to surgery. For questions the morning of surgery, call the Pre-op Department at [phone]. Medication Instructions (Do not stop your medications [...] [facility], please call [phone] ([phone]). Do not use lotions, creams, powders, perfume, make up, cologne or after-shaves day of surgery. Remove ALL jewelry including wedding rings, body piercings, hair extensions that contain metal, nail tristanian, make-up, and contact lens. You may brush your teeth the morning of surgery, but do not swallow the water. Wear your dentures and partial plates to the hospital (no adhesive). Shower the night the before. If applicable, use the CHG (chlorhexidine gluconate) soap or wipes. Please be advised, [facility] has transitioned to a cashless payment [...] RIGHTS AND RESPONSIBILITIES As a patient at [facility], you have the right to: Receive medical care and be informed of who is taking care of you Be treated with dignity and respect Have a family member/registration representative of choice and your physician notified of your admission Receive information and actively participate in decisions about your care and treatment Refuse care, treatment and services Decide who may provide your support and speak for you Access confucianist and spiritual services Participate in ethical issues [...] of hospital charges and payment methods Patient/patient registration representative responsibilities are to: Provide information about [...] in clean clothes. documented in this encounter [facility] 06-10-2024 Miscellaneous Notes Pt had a one view CXR done on 04/30/2024 at [facility] that was received by fax and scanned into [employer]. Gina Alberts at Dr Gold's office was notified and will check with Dr Mehta and will let pt know if she has to go for a two view prior to surgery. documented in this encounter [facility] 06-10-2024 Nurse Note Pt had a one view CXR done on 04/30/2024 at [facility] that was received by fax and scanned into [employer]. Gina Alberts at Dr Gold's office was notified and will check with Dr Mehta and will let pt know if she has to go for a two view prior to surgery. [facility] 06-08-2024 History of Presen t illness Narrative [...] procedures Referring and communicating with other health animal care service worker (not separately reported) Documenting clinical information in the electronic or other health record Daniel Gold MD documented in this encounter [employer] 05-24-2024 History of Presen t illness Narrative [...] nursing note reviewed. Exam conducted with a sand molder present. Vitals: Estimated body mass index is [...] of: MAHSA Navarro documented in this encounter [facility] 12-29-2023 Hospital Discharg e instructions Patient [...] sitting or lying down. General instructions Take odmk-pgd-myzctxw and prescription medicines only as told by [...] provider. Document Revised: 09/22/2022 Document Reviewed: 09/22/2022 [facility] Patient Education 2023 Perfect Audience. Follow Up Care 12/29/2023 20:01:29 With:GERALD TAVARES Address: [facility] [email or web address] [place] [id number] Business (1) When:Within 3 Day(s) [facility] 12-29-2023 Note ED Patient Education [...] or lying down. General instructions ? Take eazs-hnx-dxywkwx and prescription medicines only as told by [...] provider. Document Revised: 09/22/2022 Document Reviewed: 09/22/2022 [facility] Patient Education ? 2023 Perfect Audience. [facility] 12-29-2023 Evaluation + Plan note Extrac maggie from: Title:ED Note Author:Manav Fisher DO Date :12/29/23 Contusion of knee (S80.00XA: Contusion of unspecified knee, initial encounter) Orders: XR Knee Complete 4+ Views Right Future Scheduled Tests Laboratory* Magnesium Level 08/04/23 * Vitamin B12 Level 08/04/23 [facility] 09-04-2024 History of Present illness [...] infection RTC for recheck. [id number] Instructions* Patient Instructions* Yumiko Ríos RN - 12/23/2023 9:30 AM EDT See progress note [id number] Hospital Discharge instructions Patient Education 08/04/2023 14:48:11 [...] drinks. ?Tomatoes and foods made with tomatoes. ?[place] or spicy foods. ?Chocolate and peppermint. Do not drink alcohol. General instructions Take smli-uwo-vksqqmt and prescription medicines only as told by [...] provider. Document Revised: 06/23/2020 Document Reviewed: 06/23/2020 [facility] Patient Education 2022 Perfect Audience. Follow Up Care 07/22/2023 13:53:31 With:Anna Hassan CNP Address: When:[address] [facility] 04-16-2024 Evaluation + Plan note Future Scheduled Tests Laboratory* Magnesium Level 08/04/23 * Vitamin B12 Level 08/04/23 [facility] 01-30-2024 Hospital Discharge instructions Patient [...] Follow these instructions at home: Medicines Take qtgj-fkl-yanqtzc and prescription medicines only as told by [...] powder, vinegar, hot sauces, and barbecue sauce. ?[place] fruit juices and citrus fruits, such as oranges, zaynab, and limes. ?Tomato-based foods, such as red sauce, chili, salsa, and pizza with red sauce. ?Fried and fatty foods, such as donuts, uzbek fries, potato chips, and high-fat dressings. ?High-fat [...] Document Reviewed: 10/15/2020 Else[employer] Patient Education 2022 Perfect Audience. Follow Up Care 05/18/2023 11:08:33 With:Anna Hassan CNP Address: When:[address] [facility] 11-01-2023 Evaluation note* Encounter Date [...] otitis media with effusion (ICD-10 - H65.93) [facility] Other 09-02-2023 Evaluation note* Encounter Date Diagnosis [...] dermati tis home care material was printed [facility] Other 07-31-2023 Hospital Discharge instructions Patient Education [...] treated at home. Treatment may include: Taking rkfo-vak-exadtuu pain medicines. Following a clear liquid diet. [...] Follow these instructions at home: Medicines Take hijj-rqk-mlfuivk and prescription medicines only as told by [...] provider. Document Revised: 01/16/2020 Document Reviewed: 01/16/2020 [facility] Patient Education 2022 Well Done Follow Up Care 10/15/2022 08:09:26 With:Anna Hassan CNP Address: When:[address] [facility] 07-31-2023 Evaluation + Plan note Future Scheduled Tests Radiology* CT Abdomen/Pelvis w/ Contrast 11/17/22 [facility] 02-10-2023 NotePROCEDURE: XR ANKLE [...] Electronically authenticated by: LIZBETH TANG Date: 2022-05-30 13:52[facility]02-10-2023 NotePROCEDURE: XR ANKLE RT MIN 3 [...] Electronically authenticated by: LIZBETH TANG Date: 2022-05-30 13:52[facility]04-08-2022 Evaluation note* Encounter Date Diagnosis Assessment [...] - G89.29) Continue with current treatment plan. [facility] Other evaluation + Plan note No data available for this section [facility] evaluation + Plan note Future Appointments Appointment Date:09/07/2023 03:15:00 PM Scheduled Provider:Elina Boyer MD Location:[facility] [place] [place] [facility] Appointment Type:[facility] Follow Up Future Scheduled Tests Laboratory* Magnesium Level 08/04/23 * Vitamin B12 Level 08/04/23 [facility] evaluation noteNo InformationNort [employer] Other evaluation note* Diagnosis Onset Date Resolution Status Contact dermatitis [facility] Work Phone: evaluation note* Diagnosis Puncture [...] of Bartholin's gland documented [facility] Diagnosis Bartholin cyst- Primary Cyst of Bartholin's gland Preop testing Unspecified pre-operative examination Abscess of Bartholin gland [facility] Diagnosis Bartholin cyst Cyst of Bartholin's gland Preop testing Unspecified pre-operative examination Abscess of Bartholin gland [facility]* Diagnosis Sensorineural hearing loss, bilateral- Primary Right-sided tinnitus Unspecified tinnitus documented in this encounter [facility]* Diagnosis Sensorineural hearing loss (SNHL) of right ear, unspecified hearing status on contralateral side- Primary Pulsatile tinnitus Tinnitus, unspecified laterality documented in this encounter [facility] Healthcare[facility]* Diagnosis Encounter for postoperative care- Primary Post-op pain Other acute postoperative pain documented in this encounter [facility]* Diagnosis Encounter for postoperative care- Primary Dyspareunia, female documented in this encounter [facility] System[facility] note* Diagnosis Family history of aneurysm- Primary Family history of other condition Pulsatile tinnitus Sensorineural hearing loss (SNHL) of right ear, unspecified hearing status on contralateral side documented in this encounter [facility] HealthcareHistory general Narrative - Reported* Type Description Date Medical History Left rotator cuff Medical History Asthma Medical History GERD Surgical History 6 left shoulder surgeries Surgical History Left rotator cuff, x5 Surgical History Left knee Surgical History Left knee, torn ACL and meniscu s Surgical History Gallbladder Surgical History Lap Cholecystectomy Surgical History nerve block Hospitalization History See Above [facility] Other Hospital Discharge instructions No data available for this section [facility] InstructionsNot on filedocumented in this encounter [facility]ed in this [facility] on filedocumented in this encounter [facility] on filedocumented in this encounter [facility] on filedocumented in this encounter [facility] No data available for this section [facility] Summary Purpose Family History [...] section and content) DATE CREATED AUTHOR 03/22/2018 [facility] DATE CREATED AUTHOR AUTHOR'S ORGANIZ ATION 03/27/2018 [facility] DATE CREATED AUTHOR AUTHOR'S ORGANIZ ATION 03/27/2018 [facility] DATE CREATED AUTHOR AUTHOR'S ORGANIZ ATION 03/07/2019 [facility] DATE CREATED AUTHOR AUTHOR'S ORGANIZ ATION 07/30/2021 [facility] DATE CREATED AUTHOR AUTHOR'S ORGANIZ ATION 06/05/2022 [facility] DATE CREATED AUTHOR AUTHOR'S ORGANIZ ATION 06/13/2024 [facility] DATE CREATED AUTHOR AUTHOR'S ORGANIZ ATION 07/03/2024 [facility] DATE CREATED AUTHOR AUTHOR'S ORGANIZ ATION 07/10/2024 [facility] DATE CREATED AUTHOR AUTHOR'S ORGANIZ ATION 07/14/2024 [facility] DATE CREATED AUTHOR AUTHOR'S ORGANIZ ATION 08/18/2024 [facility] dical Specialists EPIC REASON FOR VISIT [...] November 16, 2023 End: November 16, 2023 [employer] Relationship Specialty Start Date End Date Unallocated, [place] [address] PCP - General Family Medicine 06/19/23 [employer] Relationship Specialty Start Date End Date Unallocated, MD Marleen Elliott [facility] [place] [place] [address] PCP - General Family Medicine 06/19/23 [employer] Relationship Specialty Start Date End Date Unallocated, Holly Watt [place] [facility] [address] PCP - General Family Medicine 06/19/23 Utility [employer] Relationship Specialty Start Date End Date Unallocated, Holly Watt MD [address] [place], [place] [address] [address] PCP - General Family Medicine 06/19/23 Utility [employer] Relationship Specialty Start Date End Date Gerald Tavares DO [address] [place] [address] PCP - General Family Medicine 09/26/21 [employer] Relationship Specialty Start Date End Date Gerald Tavares DO [address] [place] [address] PCP - General Family Medicine 09/26/21 Utility [employer] Relationship Specialty Start Date End Date Gerald Tavares DO [address] [place] [id number] PCP - General Family Medicine 09/26/21 Utility [employer] Relationship Specialty Start Date End Date Unallocated, Holly Watt MD [facility] [place] [address] PCP - General Family Medicine 06/19/23 Utility [employer] Relationship Specialty Start Date End Date Unallocated, Holly Watt MD [address] [place], [place] [address] [address] PCP - General Family Medicine 06/19/23 Utility Super[employer] Relationship Specialty Start Date End Date Unallocated, Holly Watt MD [facility] [place] [address] PCP - General Family Medicine 06/19/23 Utility [employer] Relationship Specialty Start Date End Date Unallocated, Holly Watt MD [address] [place] [address] PCP - General Family Medicine 06/19/23 Utility [employer] Relationship Specialty Start Date End Date Gerald Tavares DO [address] [place] [address] PCP - General Family Medicine 09/26/21 [employer] Relationship Specialty Start Date End Date Gerald Tavares DO [address] [place] [address] PCP - General Family Medicine 09/26/21 Utility [employer] Relationship Specialty Start Date End Date Unallocated, Holly Watt MD [address] [place] [address] PCP - General Family Medicine 06/19/23 Gerald Tavares MD [address] [place] [address] Referring Physician Family Medicine 08/16/24 Ubaldo Kaiser DO [address] [facility] [place] [address] Otolaryngology 08/16/24 [employer] Relationship Specialty Start Date End Date Unallocated, Holly Watt MD [address] [place] [id number] PCP - General Family Medicine 06/19/23 Gerald Tavares MD [address] [place] [id number] Referring Physician Family Medicine 08/16/24 Ubaldo Kaiser DO [address] [place] [address] Otolaryngology 08/16/24 Goals (unrecognized section and content) [...] BE BASED ON THE PRIMARY CLINICAL RECORDS. [employer] [facility]. provides no warranty or guarantee of the accuracy or completeness of information in this document.
--- OUTSIDE RECORDS SUMMARY | 2024-09-23 04:08 | XMS_ITS | Encounter Summary ---
Author Organization [facility] Address [address] [facility] [place] [address] Care Team Providers Care Static Balancer Name Role Phone Unallocated, Noms Provider Primary Care Provi jarrett Gerald Tavares MD Unavailable [phone] Ubaldo Mendoza DO Unavailable [phone] Encounter Details Date Type Department Care Team (Late st Contact Info) Description 12/16/2022 Abstract [facility] [address] [place] [address] Zeynep Barbour PA [address] [place], [facility] Social History Tobacco Use Types Packs/Day Years [...] on filedocumented in this encounter Care Teams Static Balancer Relationship Specialty Start Date End Date Unallocated, Noms Provider, [place] [address] PCP - General Family Medicine 06/19/23 Gerald Tavares MD [address] [place] [address] Referring Physician Family Medicine 08/16/24 Ubaldo Mendoza DO [address] [place] [address] Otolaryngology 08/16/24 documented as of this encounter
--- OUTSIDE RECORDS SUMMARY | 2024-09-23 04:08 | XMS_ITS | Clinical Summary ---
Author Organization [facility] tem Address [facility] [place][id number] [address] [place] [address] Care Team Providers Care Social Service Manager Name Role Phone Gerald Tavares DO Primary Care Provider + [phone] Allergies No known active allergies Medications citalopram [...] 10:00 AM EDT Office Visit Maggy [facility] - Medical Oncology [facility] [place] [address] Jeanette Hall PA Encounter for postoperative care (Primary Dx); Dyspareunia, female 07/13/2024 Travel 07/07/2024 Travel 06/29/2024 3:00 PM EDT Office Visit Maggy Rom[facility] - Medical Oncology [address] [place] [address] Jeanette Hall PA Encounter for postoperative care (Primary Dx); Post-op pain 06/29/2024 Travel 06/29/2024 [facility]phone [facility] A Department of [facility] [address] [address] Regina Monsivais RN 06/25/2024 Telephone [facility] [address] [place] [address] Neeta Arnold Post-op Problem 06/23/2024 7:30 AM EST - 06/23/2024 9:00 AM EST Surgery [facility] Surgery [address] [place] [address] Daniel Gold MD EXCISION CYST BARTHOLIN [56120 (CPT )] 06/23/2024 7:27 AM EST Anesthesia Event [facility] Surgery [address] [place] [address] Rios Burns MD Studer, Kelly Lynn, LPN-WIRE ANNEALER 06/23/2024 5:19 AM EST - 06/23/2024 9:51 AM EST Hospital Encounter [facility] Surgery [address] [place] [address] Daniel Gold MD Post-op pain (Primary Dx); [...] 51 AM EST Abscess of Bartholin gland AK AN ELECTIVE ENDOTRACHEAL AIRWAY Routine 06/23/2024 7:35 AM EST AK EXCIS BARTHOLIN GLAND/CYST 06/23/2024 7:26 AM EST Abscess of Bartholin gland Case Notes RAVI EPIC 69 GAVE 75 POCT , URINE (NUCG) Routine 06/23/2024 5:34 AM EST from Last 3 Months Results * Surgical Pathology (06/23/2024 7:51 AM EST) Tissue (Other) 06/23/2024 7: 51 AM EST Comment:Pre-op diagnosis: RECURRENT Abscess of Bartholin gland Narrative COPATH - 06/30/2024 9:12 AM EDT [facility] [address] [place] [address] Surgical Pathology Consultation Patient Name:COLIN MACIAS:1970 (Age: 53)Gender:FTaken:06/23/2024Reported:06/30/2024Physician(s):Daniel Gold M.D. ([phone])Copy To: Rec. #:[id number]: #[id number] Final Pathologic Diagnosis Right Bartholin's gland, resection: Fibromuscular tissue includes clusters of glandular structures consistent with Bartholin's gland. Focal chronic inflammation is noted. No atypia identified. Report Electronically Signed Out acr/06/30/2024eugene George MD Interpretation performed at [facility], [address] [place] [address], License number: [id number]. Clinical History Recurrent abscess of Bartholin gland. Gross Description Received in formalin labeled COLLEEN Bartholins gland is a pink-guzmán rubbery portion of soft tissue, 1.5 x 1.2 x 0.8 cm. No skin is identified. The specimen is inked black. The specimen serially sectioned to reveal pink-guzmán rubbery cut surfaces. Two delivery representative cross-sections are submitted in a single cassette. (1, ss, [id number],m8.1) DM. dm/06/23/2024NSK Specimen(s) Received Right Bartholin's gland Fee Codes(s): 1; 82003 Daniel Gold MD PATHOLOGY/CYTOLOGY ORDERABLES F inal Result COPATH * AK AN ELECTIVE ENDOTRACHEAL AIRWAY (06/23/2024 7:35 AM EST) Yanique Robb APRN-CRNA - 06/23/2024 7:35 AM EST AGUSTINA Tai 06/23/2024 7:41 AM Airway Patient location during procedure: OR Urgency: Elective Date/Time: 06/23/2024 7:35 AM Airway not difficult IV In Situ: Peripheral General Information and Staff Service Provider: AGUSTINA Tai WIRE ANNEALER: AGUSTINA Tai Placed by: AGUSTINA Tai Patient [...] Negative Negative^N egative 06/24/2024 12:27 PM EST [facility] Urine / Unknown 06/23/2024 5 :34 AM EST 06/24/2024 12:27 PM EST Dainel Gold MD POINT OF CARE TEST ORDERABLES F inal Result Performing Organization Address City/State/[facility] Co de Phone Number [facility] [address] [place] [address] from Last 3 Months Insurance [address] [place] [address] ANTHEM Care Teams Social Service Manager Relationship Specialty Start Date End Date Gerald Tavares DO [address] [place] [address] PCP - General Family Medicine 09/26/21
--- OUTSIDE RECORDS SUMMARY | 2024-09-23 04:08 | XMS_ITS | Clinical Summary ---
Author Organization [facility] Address [address] [place], [place] [address] Care Team Providers Care Helpdesk Analyst Name Role Phone Robert Crowe DO Primary Care Provider [phone] Allergies Active Allergy Reactions Criticality Noted Date [...] (02/16/2018): Added automatically from request for surgery [id number] Social History Tobacco Use Types Packs/Day Years [...] N ot on file 03/28/2020 Data from: https://[email or web address].medicine.[email or web address].edu/. Last address used for calculation Not [...] Insurance BLUE CARD PPO OOS Care Teams Helpdesk Analyst Relationship Specialty Start Date End Date Robert Crowe DO PCP - General Family Medicine 02/18/18
--- OUTSIDE RECORDS SUMMARY | 2024-09-23 04:08 | XMS_ITS | Encounter Summary ---
Author Organization [facility] Address [address] [place] [address] Care Team Providers Care Filling Station Attendant Name Role Phone Unallocated, Noms Provider Primary Care Provi jarrett Gerald Tavares MD Unavailable [phone] Ubaldo Mendoza DO Unavailable [phone] Encounter Details Date Type Department Care Team (Late st Contact Info) Description 06/07/2024 Orders Only [facility] [address] [address] [place] [address] Conchis Harris LPN [address] [place] [address] Social History Tobacco Use Types [...] on filedocumented in this encounter Care Teams Filling Station Attendant Relationship Specialty Start Date End Date Unallocated, Noms Provider, [address] [place] [address] PCP - General Family Medicine 06/19/23 Gerald Tavares MD [address] [place] [address] Referring Physician Family Medicine 08/16/24 Ubaldo Mendoza DO [address] [place] [address] Otolaryngology 08/16/24 documented as of this encounter
--- OUTSIDE RECORDS SUMMARY | 2024-09-23 04:08 | XMS_ITS | Encounter Summary ---
Author Organization [facility] Address [address] [place], [place] [address] Care Team Providers Care Pack Changer Name Role Phone Robert Crowe DO Primary Care Provider [phone] Source Comments In the event this information is protected by the Federal Confidentiality of Alcohol and Drug AbusePatient Records regulations: The Federal rules restrict any use of the information to criminally investigate or prosecute any alcohol or drug abuse patient.[facility] Encounter Details Date Type Department Care Team (Late st Contact Info) Description 02/15/2018 Radiology Radiology [address] [place] [address] Randee Tam, data processing mechanic Social History Tobacco Use Types Packs/Day Years [...] on filedocumented in this encounter Care Teams Pack Changer Relationship Specialty Start Date End Date Robert Crowe DO PCP - General Family Medicine 02/18/18 documented as of this encounter
--- NOTE | 2024-09-23 04:31 | ED_ITS ---
HPI HPI - General Adult General Chief complaint: Headache Stated complaint: POSS TACHYCARDIA Time Seen by Provider: 09/23/24 04:31 Source: patient Mode of arrival: walk-in Limitations: no limitations History of Present Illness HPI narrative: repeated episode of fluttering in her chest on and off during the week. occurs several times a day. No associated nausea, dyspnea or light headiness. Occurred again this AM while she was driving home from work and she came to the ER. Did have a cup of coffee. No abdominal pain. Nursing got EKG on arrival and she was in A. Fib with heart rate 115. she does complain of headache and heart burn. requesting antacids Related Data Home Medications ?Medication ?Instructions ?Recorded ?Confirmed albuterol sulfate 90 mcg/actuation 1 puff inhalation Q 4H PRN 10/08/22 09/23/24 aerosol inhaler shortness of breath or wheez ing omeprazole 20 mg capsule,delayed 20 mg PO BID 10/08/22 09/23/24 release citalopram 20 mg tablet (Celexa) 20 mg PO DAILY 09/23/24 Allergies Allergy/AdvReac Type Severity Reaction Status Date / Time No Known Drug Allergies Allergy Verified 09/23/24 04:18 Opioid HPI Opioid Management Most Recent Opioid Data: Last Pain Scale 2 08/29/24, 01:40 Last MAR Pain Assessment Today, 05:01 Review of Systems ROS Status of ROS 10 or more systems reviewed and unremark able except as noted in history and below PFSH PFSH Social History Smoking status: Former smoker Little interest or pleasure in doing things: not at all Feeling down, depressed, or hopeless: not at all Exam Constitutional Vital Signs, click to edit/add: Last Vital Signs Temp 98.1 F 09/23/24 04:18 Pulse 63 09/23/24 06:33 Resp 20 09/23/24 06:33 BP 143/82 H 09/23/24 06:33 Pulse Ox 97 09/23/24 06:33 O2 Del Method Room Air 09/23/24 04:18 Common normals: no apparent distress, average body habitus, oriented x3, no limitations, healthy appearing, alert and well nourished [facility] Common normals: normocephalic and head/scalp atraumatic Eye Common normals: PERRL and EOMs intact bilaterally Respiratory Common normals: normal respiratory effort, no retractions and no use of accessory muscles Cardio Common normals: regular rate, regular rhythm, S1 normal heart sound and S2 normal heart sound GI Common normals: Normal to inspection, nondistended, normoactive bowel sounds present and soft to palpation Extremity Common normals: normal to inspection and full ROM Neuro Common normals: oriented x3, CN's II-XII intact bilaterally, moves all extremities and no focal motor deficits Psych Appearance: grossly normal Course Vital Signs Vital signs: Vital Signs Temperature 98.1 F 09/23/24 04:18 Pulse Rate 114 H 09/23/24 04:18 Respiratory Rate 20 09/23/24 04:18 Blood Pressure 125/85 09/23/24 04:18 Pulse Oximetry 98 09/23/24 04:18 Oxygen Delivery Method Room Air 09/23/24 04:18 Temperature 98.1 F 09/23/24 04:18 Pulse Rate 63 09/23/24 06:33 Respiratory Rate 20 09/23/24 06:33 Blood Pressure 143/82 H 09/23/24 06:33 Pulse Oximetry 97 09/23/24 06:33 Oxygen Delivery Method Room Air 09/23/24 04:18 Medical Decision Making MDM Narrative Medical decision making narrative: presented complaining of fluttering in her chest on and off during the past week. Would occur several times per day. occurred again this AM on the way home from work. Came to ER. first EKG patient in A. Fib with RVR. When I went in to talk to the patient she had converted to NSR. Denies chest pain but was complaining of heart burn. heart burn resolved with antacid. labs with normal d-dimer and troponin. Normal cxray. Discussed with consulting software engineer Cardiology. Patient given dose of Eliquis and discharged home to follow up with Cardiology as an out patient Discussed with Dr Sheehan who would like her to start Eliquis and also schedule outpatient ECHO and follow up with cards Lab Data Labs: Lab Results 09/23/24 Range/Units 04:30 WBC 6.5 (4.0-11.0) 10^3/uL RBC 5.21 (4.20-5.40) 10^6/uL Hgb 15.7 (12.0-16.0) g/dL Hct 44.6 (36.0-48.0) % MCV 85.6 (81.0-99.0) fL MCH 30.1 (26.7-34.0) pg MCHC 35.2 (29.9-35.2) g/dL RDW 11.9 (11.0-15.0) % Plt Count 280 (150-450) 10^3/uL MPV 9.0 L (9.5-13.5) fL Neut % (Auto) 47.9 (43.0-75.0) % Lymph % (Auto) 38.6 (20.5-60.0) % Miner % (Auto) 7.0 (1.7-12.0) % Eos % (Auto) 5.4 (0.9-7.0) % Baso % (Auto) 0.8 (0.2-2.0) % Neut # (Auto) 3.1 (1.4-6.5) 10^3/uL Lymph # (Auto) 2.5 (1.2-3.8) 10^3/uL Miner # (Auto) 0.5 (0.3-0.8) 10^3/uL Eos # (Auto) 0.4 (0.0-0.7) 10^3/uL Baso # (Auto) 0.1 (0.0-0.1) 10^3/uL Abs Immat Gran (auto) 0.02 (0.00-0.03) 10^3/uL Imm/Tot Granulo (auto) 0.3 (0.0-0.5) % D-Dimer <0.19 (<=0.59) mg/L FEU Sodium 142 (136-145) mmol/L Potassium 3.2 L (3.5-5.1) mmol/L Chloride 104 (98-107) mmol/L Carbon Dioxide 29.8 (21.0-32.0) mmol/L Anion Gap 11.4 BUN 16.0 (7.0-18.0) mg/dL Creatinine 0.81 (0.55-1.02) mg/dL Est GFR ( Amer) >60 (>=60 mL/min/1.73m^2) Est GFR (Non-Af Amer) >60 (>=60 mL/min/1.73m^2) BUN/Creatinine Ratio 19.8 Glucose 102 (74-106) mg/dL Calcium 9.4 (8.5-10.1) mg/dL Total Bilirubin 0.6 (0.2-1.0) mg/dL AST 24 (15-37) U/L ALT 42 (14-59) U/L Alkaline Phosphatase 84 (46-116) U/L Troponin I High Sens 6.7 (4.0-51.3) pg/mL Total Protein 7.8 (6.4-8.2) g/dL Albumin 4.1 (3.4-5.0) g/dL Globulin 3.7 g/dL Albumin/Globulin Ratio 1.1 Lipase 53.0 (16.0-77.0) U/L TSH 2.516 (0.358-3.740) uIU/mL Discharge Plan Discharge Chief Complaint: Headache Clinical Impression: Atrial fibrillation Patient Disposition: Home, Self-Care Prescriptions / Home Meds: No Action citalopram [Celexa] 20 mg tablet 20 mg PO DAILY albuterol sulfate 90 mcg/actuation HFA aerosol inhaler 1 puff INHALATION Q4H PRN (Reason: shortness of breath or wheezing) omeprazole 20 mg capsule,delayed release(DR/EC) 20 mg PO BID Print Language: Estonian Instructions: A-fib (Atrial Fibrillation) (ED) Additional Instructions: call Cardiology to schedule an appointment within the week Referrals: ORACIO SINGH DO [Primary Care Provider, Family Practice] - 1 week
[2024-09-23 04:53] LABS: Basophils Absolute Auto 0.1 10^3/uL (0.0-0.1); Basophils Percent Auto 0.8 % (0.2-2.0); Eosinophils Absolute Auto 0.4 10^3/uL (0.0-0.7); Eosinophils Percent Auto 5.4 % (0.9-7.0); Hematocrit 44.6 % (36.0-48.0); Hemoglobin 15.7 g/dL (12.0-16.0); Immature Granulocytes Abs Auto 0.02 10^3/uL (0.00-0.03); Immature Granulocytes Pct Auto 0.3 % (0.0-0.5); Lymphocytes Absolute Auto 2.5 10^3/uL (1.2-3.8); Lymphocytes Percent Auto 38.6 % (20.5-60.0); Mean Corpuscular HGB Conc 35.2 g/dL (29.9-35.2); Mean Corpuscular Hemoglobin 30.1 pg (26.7-34.0); Mean Corpuscular Volume 85.6 fL (81.0-99.0); Monocytes Absolute Auto 0.5 10^3/uL (0.3-0.8); Neutrophils Absolute Auto 3.1 10^3/uL (1.4-6.5); Neutrophils Percent Auto 47.9 % (43.0-75.0); Platelet Count 280 10^3/uL (150-450); Red Blood Count 5.21 10^6/uL (4.20-5.40); Red Cell Distribution Width 11.9 % (11.0-15.0); White Blood Count 6.5 10^3/uL (4.0-11.0)
[2024-09-23] MEDS: CALCIUM CARBONATE 500 MG (200MG ELEMENTAL) TAB CHEW 1000 MG PO (05:01)
[2024-09-23] MEDS: ACETAMINOPHEN 500 MG TABLET 1000 MG PO (05:01)
[2024-09-23 05:27] LABS: Alanine Aminotransferase 42 U/L (14-59); Albumin Globulin Ratio 1.1; Albumin Level 4.1 g/dL (3.4-5.0); Alkaline Phosphatase 84 U/L (46-116); Anion Gap 11.4; Aspartate Amino Transferase 24 U/L (15-37); BUN Creatinine Ratio 19.8; Bilirubin Total 0.6 mg/dL (0.2-1.0); Calcium 9.4 mg/dL (8.5-10.1); Carbon Dioxide 29.8 mmol/L (21.0-32.0); Chloride 104 mmol/L (98-107); Estimated GFR (African America >60 (>=60 mL/min/1.73m^2); Estimated GFR (Non-African Ame >60 (>=60 mL/min/1.73m^2); Globulin 3.7 g/dL; Glucose 102 mg/dL (74-106); Potassium 3.2 mmol/L (3.5-5.1); Sodium 142 mmol/L (136-145); Thyroid Stimulating Hormone 2.516 uIU/mL (0.358-3.740); Total Protein 7.8 g/dL (6.4-8.2); Troponin I High Sensitivity 6.7 pg/mL (4.0-51.3)
[2024-09-23 05:28] LABS: D Dimer <0.19 mg/L FEU (<=0.59)
--- NOTE | 2024-09-23 05:38 | ECG_ITS ---
[facility] Test Date: 2024-09-23 Pat Name: COLIN MACIAS Department: Room: - Gender: Female Psychotherapist: : 1970 Requested By: 1031 Order Number: [id number] Reading MD: ELMER ALICIA M.D. Measurements Intervals Brandon Rate: 115 P: -23370 ME: -59298 QRS: 36 QRSD: 80 T: 50 QT: 326 QTc: 394 Interpretive Statements 02422 Atrial fibrillation with rapid ventricular response [address] depression, probably digitalis effect [address] & Twave abnormality, probably digitalis effect 9150 abnormal ECG Compared to ECG 08/29/2024 00:22:12 ST (T wave) deviation now present Sinus rhythm no longer present Electronically Signed On 09-23-2024 18:22:25 EDT by ELMER ALICIA M.D.
--- NOTE | 2024-09-23 05:44 | ECG_ITS ---
[facility] Test Date: 2024-09-23 Pat Name: COLIN MACIAS Department: Room: - Gender: Female Endodontics Dentist: : 1970 Requested By: 1031 Order Number: [id number] Reading MD: ELMER ALICIA M.D. Measurements Intervals Lena Rate: 78 P: 57 MT: 178 QRS: 34 QRSD: 84 T: 61 QT: 388 QTc: 421 Interpretive Statements 1100 Sinus rhythm 9110 normal ECG Compared to ECG 09/23/2024 04:15:29 Atrial fibrillation no longer present ST (T wave) deviation no longer present Electronically Signed On 09-23-2024 18:22:36 EDT by ELMER ALICIA M.D.
[2024-09-23] MEDS: APIXABAN 5 MG TABLET PO (06:55)
== END 2024-09-23 07:11 | disposition home or self-care (01) ==
PROVIDERS: Emergency Provider Internal Medicine; PCP Family Medicine
DX: I48.91 Unspecified atrial fibrillation (principal); R51.9 Headache, unspecified; R12 Heartburn; Z87.891 Personal history of nicotine dependence
CPT/HCPCS: 36415; 71045; 80053; 83690; 84443; 84484; 85025; 85378; 93005; 99285

== ENCOUNTER 2024-11-16 13:05 | Outpatient (OUT) | payer BC, SELFPAY ==
--- OUTSIDE RECORDS SUMMARY | 2024-09-27 07:31 | XMS_ITS ---
Author Organization [facility] [place] Address [address] [place] [address] Care Team Providers Care Secondary Market Manager Name Role Phone Gerald Tavares Primary Care Provider [phone] REASON FOR VISIT lab results Encounters Encounter Location Date Provider Diagnosis [facility] [address] [place] [address] 09/27/2024 Gerald Tavares Plan Of Treatment No Information Progress Notes * Tiera MACIASDOB: 0 (54 yo F)Acc No.[id number]:09/27/2024 Patient: Tiera VOGT :1970 A ge:53 Y S ex:Female Address:[address] [place] [address], [phone] * true * Date: Generated for Abilioi ng/Faleliag/eTransmitting on: 0 11/16/2024 01:06 PM EDT
--- OUTSIDE RECORDS SUMMARY | 2024-11-07 12:39 | XMS_ITS ---
Author Organization [facility] [place] Address [address] [place] [address] Care Team Providers Care Motorbike Courier Name Role Phone Gerald Tavares Primary Care Provider REASON FOR VISIT controlled refill Medications Medication SIG (Take, Route, Frequency, Duration) Notes Start Date End Date Status HYDROcodone-Acetaminophen 5-325 MG 1 tablet as needed Orally bid for 7 days 11/09/2024 Active Encounters Encounter Location Date Provider Diagnosis [address] [address] 11/07/2024 Gerald Tavares Plan Of Treatment Medication Medication Name Sig Start Date Stop Date Notes HYDROcodone-Acetaminophen 5- 325 MG 1 tablet as needed Orally bid for 7 days 11/09/2024 Progress Notes * Tiera MACIASDOB: 0 (54 yo F)Acc No.[id number]:11/07/2024 Patient: Tiera VOGT :1970 A ge:54 Y S ex:Female Address:[address] [place] [address], [phone] * Refills Start HYDROcodone-Acetaminophen Tablet, 5-325 MG, Orally, 14 Tablet, 1 tablet as needed, bid, 7 days, Refills=0 * true * Date: Generated for Printi ng/Faxing/eTransmitting on: 0 11/16/2024 01:07 PM EDT
--- OUTSIDE RECORDS SUMMARY | 2024-11-09 04:43 | XMS_ITS ---
Author Organization [facility] [place] Address [address] [place] [address] Care Team Providers Care Coke Still Cleaner Name Role Phone Tavares Gerald Primary Care Provider REASON FOR VISIT med refill Medications Medication SIG (Take, Route, Frequency, Duration) Notes Start Date End Date Status Eliquis 5 MG 1 tablet Orally bid for 90 days Active Encounters Encounter Location Date Provider Diagnosis [facility] [address] [place] [address] 11/09/2024 Gerald Tavares Paroxysmal atrial fibrillation I48.0 Assessments Encounter Date Diagnosis (ICD Code) Assessment Notes Treatment Notes Treatment Clinical Notes Section Notes 11/09/2024 Paroxysmal atrial fibrillation (ICD-10 - I48.0) Plan Of Treatment Medication Medication Name Sig Start Date Stop Date Notes Eliquis 5 MG 1 tablet Orally bid for 90 days Progress Notes * Tiera MACIASDOB: 0 (54 yo F)Acc No.[id number]:11/09/2024 Patient: Tiera VOGT :1970 A ge:54 Y S ex:Female Address:[address] [place] [address], [phone] * Refills Refill Eliquis Tablet, 5 MG, Orally, 180 Tablet, 1 tablet, bid, 90 days, Refills=1 * true * Date: Generated for Printi ng/Faxing/eTransmitting on: 0 11/16/2024 08:13 AM EDT
--- OUTSIDE RECORDS SUMMARY | 2024-11-16 08:30 | XMS_ITS | Encounter Summary ---
Author Organization [facility] tem Address [id number] [address] [place] [address] Care Team Providers Care Aluminum Boats Assembler Name Role Phone Gerald Tavares DO Primary Care Provider + [phone] Reason for Visit * Reason Comments Follow-up Encounter Details Date Type Department Care Team (Late st Contact Info) Description 11/16/2024 8:30 AM EDT Office Visit [facility] Gynecology Oncology, A Department of [address] [place] [address] Daniel Gold MD [address] [place] [address], [address] [place] [address] Bartholin cyst (Primary Dx) Social History Tobacco Use Types Packs/Day Years Used Date Smoking Tobacco: Former Cigarettes 982015 Passive Smoke Exposure: Current Smokeless Tobacco: Never Alcohol Use Standard Drinks/Week Comments Not Currently [...] on file documented as of this encounter Last Filed Vital Signs Vital Sign Reading Time Taken Comments Blood Pressure - - Pulse - - Temperature - - Respiratory Rate - - Oxygen Saturation - - Inhaled Oxygen Concentration - - Weight 74.1 kg (163 lb 6.4 oz) 11/16/2024 8:28 A M EDT Height 160 cm (5' 2.99 ) 11/16/2024 8:28 AM EDT Body Mass Index 28.95 11/16/2024 8:28 AM EDT documented in this encounter Progress Notes * Daniel Gold MD - 11/16/2024 8:30 AM EDT Subjective: Tiera is a 54 y.o. female here for consultation from Dr. Medel for evaluation and management of recurrent right Bartholin's gland abscess. This patient has had a right-sided Bartholin's gland abscess excision and now has a new lesion in that same area with extreme discomfort, she notices daily, interferes with independent activities of daily living and has been unable to have intercourse. Oncology History No overview note Tiera : Denies Early satiety Denies Abdominal distention Denies Leg swelling Denies Shortness of breath Denies Vaginal bleeding Denies Change in bowel habits Denies Change in bladder habits Denies Nausea and vomiting All other systems negative, unless specifically noted in HPI. Past Gynecologic History: OB History No obstetric history on file. No LMP recorded. Patient is postmenopausal. Hormonal Contraceptives No HRT use No History of abnormal pap No Past Surgical History: Procedure Laterality Date CHOLECYSTECTOMY 2013 COLONOSCOPY x 2 ESOPHAGOGASTRODUODENOSCOPY EXCISION CYST BARTHOLIN Right 06/23/2024 Performed by Daniel Gold MD at [facility] KNEE SURGERY Left 2008 meniscus SHOULDER SURGERY Left 7 total shoulder surgery, [id number] Past Medical History: Diagnosis Date Asthma Colon polyp COVID 04/2024 Depression Visual impairment glasses Family History Problem Relation Age of Onset Ovarian cancer Mother Aneurysm Father Atrial fibrillation Father Anesthesia problems Neg Hx Social History Tobacco Use Smoking status: Former Current packs/day: 0.00 Average packs/day: 1 pack/day for 30.0 years (30.0 ttl pk-yrs) Types: Cigarettes Start date: 1985 Quit date: 2016 Years since quittin.5 Passive exposure: Current Smokeless tobacco: Never Substance Use Topics Alcohol use: Not Currently Review of Symptoms: Pertinent items are noted in HPI. Objective: Ht 160 cm (5' 2.99 ) Wt 74.1 kg (163 lb 6.4 oz) BMI 28.95 kg/m?? ECO- Asymptomatic General appearance: alert, appears stated age and cooperative Head: Normocephalic, without obvious abnormality, atraumatic Ears: normal TM's and external ear canals both ears Neck: no adenopathy, no carotid bruit, no JVD, supple, symmetrical, trachea midline and thyroid notenlarged, symmetric, no tenderness/mass/nodules Lungs: clear to auscultation bilaterally Breasts: normal appearance, no masses or tenderness Heart: regular rate and rhythm, S1, S2 normal, no murmur, click, rub or gallop Abdomen: abnormal findings: Soft, nontender, nondistended, no rebound or guarding. Pelvic-scrub nurse present: cervix normal in appearance, external genitalia- new lesion in the area of the right Bartholin's gland, very thick and extremely tender to palpation well-healed incision, uterus normal size, shape, and consistency, vagina normal without discharge Extremities: extremities normal, atraumatic, no cyanosis or edema Pulses: 2+ and symmetric Skin: Skin color, texture, turgor normal. No rashes or lesions Lymph nodes: Cervical, supraclavicular, and axillary nodes normal. Neurologic: Grossly normal Labs: Lab Results Component Value Date WBC 5.1 06/10/2024 HGB 14.6 06/10/2024 HCT 43.3 06/10/2024 MCH 29.8 06/10/2024 MCHC 33.7 06/10/2024 PLT 272 06/10/2024 MPV 7.6 06/10/2024 RDW 12.8 06/10/2024 Lab Results Component Value Date BUN 14 06/10/2024 K 4.2 06/10/2024 CL 103 06/10/2024 ALBUMIN 4.6 06/10/2024 AST 19 06/10/2024 No results found for: GGT No results [...] the vulva with a right Bartholin's gland excision/revision. 3. Discussed the risks of surgery in detail including; bleeding, infection, damage to internal organs, risk of anesthesia including-clots, pneumonia, myocardial infarction, stroke and even . Thepatient understands the risks and elects to proceed. 4. Total time spent was 35 minutes: Preparing to see the patient (e.g., review of tests) Obtaining and/or reviewing separately obtained history Performing a medically appropriate examination and/or evaluation Counseling and educating the patient/family/caregiver Ordering medications, tests, or procedures Referring and communicating with other health child care associate teacher (not separately reported) Documenting clinical information in the electronic or other health record Daniel Gold MD documented in this encounter Plan of Treatment Not on file documented as of this encounter Visit Diagnoses Diagnosis Bartholin cyst- Primary Cyst of Bartholin's gland documented in this encounter Care Teams Aluminum Boats Assembler Relationship Specialty Start Date End Date Gerald Tavares DO [address] [place] [address] PCP - General Family Medicine 09/26/21 documented as of this encounter
--- OUTSIDE RECORDS SUMMARY | 2024-11-16 13:07 | XMS_ITS | Patient Health Record ---
Author Organization [facility] [place] Address [address] [place] [address] Care Team Providers Care Printing Supervisor Name Role Phone Gerald Tavares Primary Care Provider Allergies No Known Allergies Reason For Referral Reason tinitus Diagnosis 1 Tinnitus, right ear (H93.11) Referral Organization [facility] Referring Provider First Name Gerald Referring Provider Last Name Chaitanya Referring Provider Speciality [facility] icine Referred Provider Ubaldo Mendoza Referred Provider Specialty Otolaryngolo gy General Notes Gerald Tavares 10:16:28 AM >please call pt for appt Referral Priority Routine Reason new onset A fib Diagnosis 1 Paroxysmal atrial fi brillation (I48.0) Referral Organization [facility] Referring Provider First Name Gerald Referring Provider Last Name Chaitanya Referring Provider Speciality [facility] icisamra Referred Provider Chi Bernal Referred Provider Specialty Cardiology General Notes Gerald Tavares 02:44:57 PM >please call pt for apptChaitanya Daniel A 09/26/2024 02:46:20 PM >pt wants to be seen in [place] Referral Priority Routine Medications Medication SIG (Take, Route, Frequency, Duration) Notes Start Date End Date Status Citalopram Hydrobromide 20 MG 1 tablet Orally Once a day 11/19/2022 Active Calcium Unknown Celecoxib 200 MG 1 capsule with food Orally Once a day for 30 days 09/03/2022 Unknown Albuterol Sulfate HFA 108 (90 Base) MCG/ACT 2 puffs as needed Inhalation every 4 hrs 07/16/2022 Active Citalopram Hydrobromide 40 mg 1 tablet Orally Once a day for 90 days Unknown Fiber Unknown Esomeprazole Magnesium 40 MG 1 tablet Orally daily 02/04/2024 Active Ondansetron HCl 4 MG 1 tablet Orally tid prn N/V for 30 days 02/04/2024 Active HYDROcodone-Acetaminophen 5-325 MG 1 tablet as needed Orally bid for 7 days 11/09/2024 Active Eliquis 5 MG 1 tablet Orally bid for 90 days Active B Complex Unknown Social History Alcohol Screen (Audit-C) Question Answer Notes Did you have a drink containing alcohol in the p ast year? Yes How often did you have 6 or more drinks on one occasion in the past year? Never (0 point) Points 0 Interpretation Negative Problems Problem Type SNOMED Code ICD Code Onset Dates Problem Status W/U Status Risk Notes Problem 033435590 Overweight (E66.3) Active confirmed Problem 0336589 Primary insomnia (F51.01) Active confirmed Problem 81713501 Other chronic pa in (G89.29) Active confirmed Problem 6122317735616 Tinnitus, right ear (H93.11) Active confirmed Problem 849292650 Paroxysmal atria l fibrillation (I48.0) Active confirmed Problem 052315586 Mild intermitten t asthma, uncomplicated (J45.20) Active confirmed Problem 671421626 Diverticulosis o f large intestine without perforation or abscess without bleeding (K57.30) Active confirmed Problem 385744783 Diverticulitis o f intestine, part unspecified, without perforation or abscess without bleeding (K57.92) Active confirmed Problem 535248830 Spondylosis with out myelopathy or radiculopathy, lumbar region (M47.816) Active confirmed Problem 55121857 Other cervical d isc degeneration, unspecified cervical region (M50.30) Active confirmed Problem 599483026 Paresthesia of s kin (R20.2) Active confirmed Problem 656911744 Personal history of colonic polyps (Z86.010) Active confirmed Problem 475220428 Gastroesophageal reflux disease without esophagitis (K21.9) Active confirmed Problem 51987768 Major depressive disorder with single episode, in full remission (F32.5) Active confirmed Problem 311300499 Gastro-esophagea l reflux disease with esophagitis, without bleeding (K21.00) Active confirmed Vital Signs Heart Rate 64 /min 09/26/2024 Respiratory Rate 16 /min 09/26/2024 Oximetry 97 % 09/26/2024 Blood pressure diastolic 100 mm Hg 09/26/2024 Height 63 in 09/26/2024 Blood pressure systolic 142 mm Hg 09/26/2024 Weight 163.5 lbs 09/26/2024 BMI 28.96 kg/m2 09/26/2024 Procedures Procedure Date Ordered Date Performed Result Body Sit e Echocardiogram 2D M Mode w/ Doppler (measure RVSP) 09/26/2024 N/A Encounters Encounter Location Date Provider Diagnosis [place] [place] [address] 04/18/2024 Gerald Tavares Other cervical disc degeneration, unspecified cervical region M50.30 ; Tinnitus, right ear H93.11 ; Overweight E66.3 ; Body mass index [BMI] 29.0-29.9, adult Z68.29 ; Mild intermittent asthma, uncomplicated J45.20 and Primary insomnia F51.01 [address] [place] [place] [address] 09/26/2024 Gerald Tavares Paroxysmal atrial fibrillation I48.0 ; Elevated blood-pressure reading, without diagnosis of hypertension R03.0 ; Encounter for screening mammogram for malignant neoplasm of breast Z12.31 ; Overweight E66.3 ; Body mass index [BMI] 28.0-28.9, adult Z68.28 ; Encounter for general adult medical examination without abnormal findings Z00.00 ; Major depressive disorder with single episode, in full remission F32.5 ; Gastroesophageal reflux disease without esophagitis K21.9 ; Other specified disorders of bone density and structure, unspecified site M85.80 and Other specified abnormal findings of blood chemistry R79.89 [address] [place] [address] 09/21/2024 Gerald Tavares Encounter for genera l adult medical examination without abnormal findings Z00.00 [address] [place] [address] 09/23/2024 Gerald Tavares [facility] [address] [place] [address] 09/26/2024 Gerald Tavares [facility] [address] [place] [address] 09/27/2024 Gerald Tavares [address] [place] [address] 11/07/2024 Gerald Tavares [facility] [address] [place] [address] 11/09/2024 Gerald Tavares Paroxysmal atrial fibrillation I48.0 [address] [place] [address] 02/04/2024 Gerald Tavares Other cervical disc degeneration, unspecified cervical region M50.30 ; Major depressive disorder with single episode, in full remission F32.5 ; Gastroesophageal reflux disease without esophagitis K21.9 ; Other chronic pain G89.29 and Headache, unspecified R51.9 [address] [place] [address] 05/20/2024 Gerald Tavares Abnormal weight gain R63.5 ; Overweight E66.3 and Body mass index [BMI] 29.0-29.9, adult Z68.29 [address] [place] [place] [address] 07/29/2024 Gerald Tavares Acute bronchitis, unspecified J20.9 Assessments Encounter Date Diagnosis (ICD Code) Assessment Notes Treatment Notes Treatment Clinical Notes Section Notes 02/04/2024 Other cervical disc degeneration, unspecified cervical region (ICD-10 - M50.30) erx zanaflex [facility] note for work 02/04/2024 Major depressive disorder with single episode, in full remission (ICD-10 - F32.5) stable monitor 07/29/2024 Acute bronchitis, unspecified (ICD-10 - J20.9) cxr if not better rtc prn 09/26/2024 Paroxysmal atrial fibrillation (ICD-10 - I48.0) echo refer to cardio monitor for bleeding ?due to stress ER if palp/dizzy more 09/26/2024 Elevated blood-pressure reading, without diagnosis of hypertension (ICD-10 - R03.0) bp check daily goal <130/80 diet/exercise rec medication - bblocker - if elevated monitor bmp and urine microalbumin yearly 04/18/2024 Other cervical disc degeneration, unspecified cervical region (ICD-10 - M50.30) oarrs ok continue norco prn PT if worsens or injections 04/18/2024 Tinnitus, right ear (ICD-10 - H93.11) refer to ENT for eval and tx d/w pt that there may not be many options 09/21/2024 Encounter for general adult medical examination without abnormal findings (ICD-10 - Z00.00) 11/09/2024 Paroxysmal atrial fibrillation (ICD-10 - I48.0) 05/20/2024 Abnormal weight gain (ICD-10 - R63.5) diet/exercise rtc 1 month we will send in semiglutide to [facility] in [place] 05/20/2024 Overweight (ICD-10 - E66.3) diet/exercise 05/20/2024 Body mass index [BMI] 29.0-29.9, adult (ICD-10 - Z68.29) 04/18/2024 Overweight (ICD-10 - E66.3) diet/exercise 09/26/2024 Encounter for screening mammogram for malignant neoplasm of breast (ICD-10 - Z12.31) 02/04/2024 Gastroesophageal reflux disease without esophagitis (ICD-10 - K21.9) stable monitor diet 02/04/2024 Other chronic pain (ICD-10 - G89.29) 09/26/2024 Overweight (ICD-10 - E66.3) diet/exercise 04/18/2024 Body mass index [BMI] 29.0-29.9, adult (ICD-10 - Z68.29) 04/18/2024 Mild intermittent asthma, uncomplicated (ICD-10 - J45.20) rec PFT ICS if s/s worsen 09/26/2024 Body mass index [BMI] 28.0-28.9, adult (ICD-10 - Z68.28) 02/04/2024 Headache, unspecified (ICD-10 - R51.9) erx zanaflex motrin/tylenol prn more tension from C spine dz TY log 09/26/2024 Encounter for general adult medical examination without abnormal findings (ICD-10 - Z00.00) set up jax rec dexa - pt to hold off rec flu shot yearly rec dtap q10 years rec pn vaccine rec shingrix diet/exercise labs yearly eye and dental exams yearly rec pap q5 years rtc 1 year 04/18/2024 Primary insomnia (ICD-10 - F51.01) sleep hygeine rtc if wishes to do meds - prob due to C DDD and shoulder pains - ?flexeril or mobic 09/26/2024 Major depressive disorder with single episode, in full remission (ICD-10 - F32.5) continue med rec counseling ?add wellbutrin 09/26/2024 Gastroesophageal reflux disease without esophagitis (ICD-10 - K21.9) diet stable 09/26/2024 Other specified disorders of bone density and structure, unspecified site (ICD-10 - M85.80) rec dexa exercise d/w pt fosamax rec monitoring vit D 09/26/2024 Other specified abnormal findings of blood chemistry (ICD-10 - R79.89) rec DST and cortisol lab at 8am - pt to hold off for now ?endo Plan Of Treatment Pending Test Test Name Order Date LIPID PANEL (CHOL/TRIG/HDL/LDL) 09/22/19 25 Echocardiogram 2D M Mode w/ Doppler (sebastian sure RVSP) 09/26/2024 MAMM SCREEN BILAT ELIZABETH 3D GLOBAL* 2024 CMP (COMP MET POE) w/eGFR CKD-EPI 2024 CBC WITH DIFF 09/21/2024 Insurance Providers Payer Name Payer Address Payer Phone Subscriber Number Group Number Insured Name Patient Relationship to Insured Coverage Start Date Coverage End Date ANTHEM ACCESS PPO PLUS LOCAL PLAN [address] [place] [address] [phone] [id number] T[address] [place] Self - patient is the insured 3 Medical (General) History Medical History History ICD Code C DDD L DDD GERD HH YAYO asthma colon polyp urinary incontinence diverticulosis - flare up in 09/[address] - nonobstructing osteopenia esophagitis int/ext hemorrhoids PAF Surgical History Surgery Date(Month/Year) colonoscopy - 05/12/2023 +3 polyps, int/e xt hem, +diverticulosis L knee scope L shoulder surgery x 6 ryanne - 2011 EGD - 2019 +esophagitis colonoscopy - 2019 +polyp EGD - 05/12/23 +HH/esophagitis/?barretts
--- OUTSIDE RECORDS SUMMARY | 2024-11-16 13:07 | XMS_ITS | Encounter Summary ---
Author Organization [facility] Address [address] [facility] [facility] [place] [address] Care Team Providers Care Fisher Line Name Role Phone Unallocated, Noms Provider Primary Care Provi jarrett Gerald Tavares MD Unavailable [phone] Ubaldo Mendoza DO Unavailable [phone] Encounter Details Date Type Department Care Team (Late st Contact Info) Description 12/16/2022 Abstract HOLLY Ponce OBLAZARO [address] [place] [address] Zeynep Barbour PA [address] [place], [facility] Social History Tobacco Use Types Packs/Day [...] on filedocumented in this encounter Care Teams Fisher Line Relationship Specialty Start Date End Date Unallocated, Noms Provider, [address] [place] [address] PCP - General Family Medicine 06/19/23 Gerald Tavares MD [address] [place] [address] Referring Physician Family Medicine 08/16/24 Ubaldo Mendoza DO [address] [place] [address] Otolaryngology 08/16/24 documented as of this encounter
--- OUTSIDE RECORDS SUMMARY | 2024-11-16 13:07 | XMS_ITS | Clinical Summary ---
Author Organization [facility] Address [address] [place] [address] Care Team Providers Care Chiller Operator Name Role Phone Unavailable Primary Care Provider Unavailabl e Encounters Date Type Department Care Team Description 09/26/2024 Orders Only [facility] [address] [place] [address] Annia Muniz MA Paroxysmal atrial fibrillation (CMS/HCC) from Last 3 Months Social History Tobacco Use Types Packs/Day Years Used Date Smoking Tobacco: Never Assessed Comments Unknown Sex and Gender Information Value Date Recorded Sex Assigned at Not on file Legal Sex Female 11:23 PM EDT Gender Identity Not on file Sexual Orientation Not on file Last Filed Vital Signs Vital Sign Reading Time Taken Comments Blood Pressure - - Pulse - - Temperature - - Respiratory Rate - - Oxygen Saturation - - Inhaled Oxygen Concentration - - Weight 70.3 kg (155 lb) 12/13/2018 11:26 AM EDT Height 160 cm (5' 3 ) 12/13/2018 11:24 AM EDT Body Mass Index 27.46 12/13/2018 11:24 AM EDT Plan of Treatment Upcoming Encounters Date Type Department Care Team (Late st Contact Info) Description 11/22/2024 2:45 PM EDT Office Visit [facility] [address] [place] [address] Ubaldo Bueno MD [address] [place] [id number] Health Maintenance Due Date Last Done Comments CT Colonography 1969 Colonoscopy 1969 Colorectal Cancer Screening 1969 FIT-DNA 1969 FIT 1969 FOBT 1969 Sigmoidoscopy 1969 Depression Screening 1981 Hepatitis B Vaccines (1 of 3 - 19+ 3-dose series) 1988 05/14/2012 HPV/Cotest 10/20/1999 Zoster Vaccines (1 of 2) 10/20/2019 COVID-19 Vaccine (2 - 2023-2 5 season) 2023 03/18/2021 Mammogram 06/04/2024 06/04/2022 Influenza Vaccine (#1) 2024 04/05/2009 Cervical Cancer Screening 05/24/2027 Pap Smear 05/24/2027 05/24/2024 Adult Tetanus 12/22/2033 12/23/2023 HIB Vaccines Aged Out No longer eligi ble based on patient's age to complete this topic HPV Vaccines Aged Out No longer eligi ble based on patient's age to complete this topic IPV Vaccines Aged Out No longer eligi ble based on patient's age to complete this topic Meningococcal B Vaccine Aged Out No l onger eligible based on patient's age to complete this topic Meningococcal Vaccine Aged Out No elsa jalen eligible based on patient's age to complete this topic Pneumococcal Vaccine: Pediat rics (0 to 5 Years) and At-Risk Patients (6 to 64 Years) Aged Out No longer eligi ble based on patient's age to complete this topic Rotavirus Vaccines Aged Out No longer eligible based on patient's age to complete this topic Insurance [facility]
--- OUTSIDE RECORDS SUMMARY | 2024-11-16 13:07 | XMS_ITS | Encounter Summary ---
Author Organization [facility] Address [address] [place], [place] [address] Care Team Providers Care Sole Rougher Name Role Phone Robert Crowe DO Primary Care Provider [phone] Source Comments In the event this information is protected by the Federal Confidentiality of Alcohol and Drug AbusePatient Records regulations: The Federal rules restrict any use of the information to criminally investigate or prosecute any alcohol or drug abuse patient.[facility] Encounter Details Date Type Department Care Team (Late st Contact Info) Description 02/15/2018 Radiology Radiology [address] [place] [address] Randee Tam, sociology adjunct instructor Social History Tobacco Use Types Packs/Day Years [...] on filedocumented in this encounter Care Teams Sole Rougher Relationship Specialty Start Date End Date Robert Crowe DO PCP - General Family Medicine 02/18/18 documented as of this encounter
--- OUTSIDE RECORDS SUMMARY | 2024-11-16 13:07 | XMS_ITS | Clinical Summary ---
Author Organization [facility] Address [address] [place], [place] [address] Care Team Providers Care Supervisor Payroll Name Role Phone Robert Crowe DO Primary Care Provider [phone] Allergies Active Allergy Reactions Criticality Noted Date [...] (02/16/2018): Added automatically from request for surgery [id number] Social History Tobacco Use Types Packs/Day Years [...] N ot on file 03/28/2020 Data from: https://www.neighborhoodatlas.medicine.[facility].edu/. Last address used for calculation Not on [...] 10/20/2019 Shingrix Vaccine (1 of 2) 10/20/2019 Influenza Vaccine (#1) 2024 Insurance BLUE CARD PPO OOS Care Teams Supervisor Payroll Relationship Specialty Start Date End Date Robert Crowe DO PCP - General Family Medicine 02/18/18
--- OUTSIDE RECORDS SUMMARY | 2024-11-16 13:07 | XMS_ITS | Clinical Summary ---
Author Organization [facility] Address [address] [place] [address] Care Team Providers Care Explosive Specialist Name Role Phone Unallocated, Noms Provider Primary Care Provi jarrett Gerald Singh MD Unavailable [phone] Ubaldo Mendoza DO Unavailable [phone] Allergies No known active allergies Medications citalopram (CeleXA) 20 MG tablet 1 (one) time each day at the same time Active esomeprazole (NexIUM) [address] capsule 1 capsule 1 (one) time each day at the same time 4 Active Eliquis 5 MG tablet Take 5 mg by mouth in the morning and 5 mg before bedtime. 5 Active estradiol (Estrace) 0.1 MG/GM vaginal creamIndication s:Dyspareunia, female,Postmeno pausal state 2g vaginal daily for 4 weeks 85 g 5 Active estradiol (Estrace) 0.1 MG/GM vaginal creamIndication s:Dyspareunia, female,Postmeno pausal state Insert 2 g into the vagina 2 (two) times a week 42.5 g 3 5 Active clobetasol (Temovate) 0.05 % creamIndication s:Bartholin's gland cyst Apply 1 application topically Daily for 14 days 45 g 5 11/03/19 25 Active Problems No known active problems Resolved Problems Problem Noted Date Diagnosed Date Resolved Date Acid reflux 06/20/2024 06/20/2024 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/20/2024 06/20/2024 Overview (06/20/2024): 726.0 LEFT [facility] [id number] DOI 07/29/12 Ellison's esophagus 06/20/2024 06/21/19 25 Colon polyp 06/20/2024 06/20/2024 Dysphagia 06/20/2024 06/20/2024 Irregular Z line of esophagus 06/20/2024 06/20/2024 History of colon polyps 06/20/20240 06/2024 History of diverticulitis 06/20/2024 Irregular bowel habits 06/20/202406/20 Lumbosacral disc herniation 06/20/2024 06/20/2024 Osteoarthritis 06/20/2024 06/20/2024 RLQ abdominal pain 06/20/2024 Schatzki's ring 06/20/2024 06/20/2024 Cervical spondylosis with radiculopathy 06/20/2024 06/20/2024 Upper abdominal pain 06/20/2024 025 Bartholin cyst 06/08/2024 06/20/2024 Lumbar disc herniation 02/16/201806/20 Overview (06/20/2024): Added automatically from request for surgery [id number] Bursitis of shoulder 06/30/2016 025 Full thickness rotator cuff tear 03/12/2014 06/20/2024 Overview (06/20/2024): 840.6 LEFT, RECURRENT [facility] [id number] DOI 07/29/12 Acute gastric ulcer 03/10/2014 06/21/19 25 Encounters Date Type Department Care Team Description 10/18/2024 Telephone [facility] [address] [place] [address] Kasey Whittington LPN 10/10/2024 11:20 AM EDT Office Visit [facility] [address] [place] [address] Yanely Medel DO Dyspareunia, female; Postmenopausal state 10/10/2024 Bamboo flowsheet [facility] [address] [place] [address] Yanely Medel DO from Last 3 Months Immunizations Immunization Administration Dates Next Due Hep A, Adult 05/14/2012 Hep B, Adolescent or Pediatric 05/14/2012 Novel [id number], preservative-free 04/05 Tdap 12/23/2023 Family History Medical [...] pur e alcohol) caffeine: 1-2 cups/day Comments No Sex and Gender Information Value Date Recorded Sex Assigned at Female 11/10/2022 8:37 AM EDT Legal Sex Female 6:38 PM EDT Gender Identity Female 11/10/2022 8:37 AM EDT Sexual Orientation Not on file Last Filed Vital Signs Vital Sign Reading Time Taken Comments Blood Pressure 120/72 10/10/2024 11:22 AM EDT Pulse 68 12/23/2023 9:37 AM EDT Temperature 36.7 C (98 F) 12/23/2023 9:37 AM EDT Respiratory Rate - - Oxygen Saturation 98% 12/23/2023 9:37 AM EDT Inhaled Oxygen Concentration - - Weight 73.5 kg (162 lb 1.9 oz) 10/10/2024 11:22 AM EDT Height 160 cm (5' 3 ) 08/16/2024 2:40 PM EDT Body Mass Index 28.72 08/16/2024 2:40 PM EDT Plan of Treatment Health Maintenance Due Date Last Done Comments CT Colonography 1969 FIT-DNA 1969 FIT 1969 FOBT 1969 Sigmoidoscopy 1969 Mammogram 06/04/2023 06/04/2022 Influenza Vaccine (#1) 2024 Pap Smear 05/24/2027 05/24/2024, 04/27/2023 Cervical Cancer Screening 04/27/2028 HPV/Cotest 04/27/2028 04/27/2023 Colonoscopy 05/12/2033 05/12/2023, 05/02/2021 Colorectal Cancer Screening 05/12/2033 Procedures Procedure Name Priority Date/Time Associated Diagnosis [...] EST) Swab Cervical swab / Unknown Zeynep [facility] CYTOLOGY ORDERABLES Final Re sult Performing Organization Address [facility] Co de Phone Number EXTERNAL LAB * THIN PREP TIS PAP AND HR HPV DNA (04/27/2023 9:10 AM EST) Swab 04/27/2023 9:10 AM EST Zeynep [facility] CYTOLOGY ORDERABLES Final Re sult Performing Organization Address [facility] Co de Phone Number EXTERNAL LAB * Bilateral screening mammogram with tomosynthesis (06/04/2022) Anatomical Region Laterality Modality Breast Bilateral Mammography Narrative 06/04/2022 12:00 AM EST PERFORMED AT [facility] LOCATION:[address] Patient: COLLEEN Biswas Exam Date: 06/04/2022 : 1970 Gender:F Ordering : DR YANELY MEDEL . Admission #: [id number] Family : DR GERALD SINGH D.O. Order #: [id number] CLICK HERE TO VIEW EXAM RADIOLOGY REPORT [...] kidney cancer at age 64. LOCATION: [facility] BREAST COMPOSITION: Heterogeneously dense which may obscure [...] Note CONVERSION, GENERIC - 10/24/2022 PERFORMED AT [facility] LOCATION:[address] Patient: COLLEEN Biswas Exam Date: 06/04/2022 : 1970 Gender:F Ordering : DR YANELY MEDEL . Admission #: [id number] Family : DR GERALD SINGH D.O. Order #: [id number] CLICK HERE TO VIEW EXAM RADIOLOGY REPORT [...] kidney cancer at age 64. LOCATION: [facility] BREAST COMPOSITION: Heterogeneously dense which may obscure [...] Pradip Tang MD on 06/04/2022 at 14:03 Yanely Medel DO IM BI PROCEDURES Final Result from Last 3 Months or Most Recently Relevant to Health Maintenance Insurance [facility] Care Teams Explosive Specialist Relationship Specialty Start Date End Date Unallocated, Noms ProviderMD [address] [place], [place] [id number] PCP - General Family Medicine 06/19/23 Gerald Singh MD [address] [place] [address] Referring Physician Family Medicine 08/16/24 Ubaldo Mendoza DO [address] [place] [address] Otolaryngology 08/16/24
--- OUTSIDE RECORDS SUMMARY | 2024-11-16 13:07 | XMS_ITS | Encounter Summary ---
Author Organization [facility] Address [address] [place] [address] Care Team Providers Care Bank Teller Name Role Phone Unallocated, Noms Provider Primary Care Provi jarrett Gerald Tavares MD Unavailable [phone] Ubaldo Mendoza DO Unavailable [phone] Encounter Details Date Type Department Care Team (Late st Contact Info) Description 06/07/2024 Orders Only [facility] [address] [place] [address] Conchis Harris LPN [address] [place] [address] Social History Tobacco Use Types [...] on filedocumented in this encounter Care Teams Bank Teller Relationship Specialty Start Date End Date Unallocated, Noms Provider, [address] [place], [place] [id number] PCP - General Family Medicine 06/19/23 Gerald Tavares MD [address] [place] [address] Referring Physician Family Medicine 08/16/24 Ubaldo Mendoza DO [address] [place] [address] Otolaryngology 08/16/24 documented as of this encounter
--- OUTSIDE RECORDS SUMMARY | 2024-11-16 13:07 | XMS_ITS | Encounter Summary ---
Author Organization [facility] tem Address [facility] [id number] [address] [place] [address] Care Team Providers Care Wiping Cloth Cutter Name Role Phone Gerald Tavares DO Primary Care Provider [phone] Encounter Details Date Type Department Care Team (Latest Contact Info) Description 11/16/2024 Travel Social History Tobacco Use Types Packs/Day Years Used Date Smoking Tobacco: Former Cigarettes 986 - 2015 Passive Smoke Exposure: Current Smokeless Tobacco: Never [...] on filedocumented in this encounter Care Teams Wiping Cloth Cutter Relationship Specialty Start Date End Date Gerald Tavares DO [address] [place] [address] PCP - General Family Medicine 09/26/21 documented as of this encounter
--- OUTSIDE RECORDS SUMMARY | 2024-11-16 13:07 | XMS_ITS | Clinical Summary ---
Author Organization [facility] tem Address [facility] [id number] [address] [place] [address] Care Team Providers Care Sql Report Analyst Name Role Phone Gerald Tavares DO Primary Care Provider + [phone] Allergies No known active allergies Medications citalopram [...] for pain. 60 tablet 06/24/19 25 Active gabapentin (NEURONTIN) 300 mg capsuleIndicat ions:Bartholin cyst Take 1 capsule (300 mg total) by mouth nightly. 30 capsule 11/17/19 25 Active Active Problems Problem Noted Date Diagnosed Date Bartholin cyst 06/08/2024 Encounters Date Type Department Care Team Description 11/16/2024 8:30 AM EDT Office Visit [facility] Gynecology Oncology, A Department of [facility] [address] [place] [address] Daniel Gold MD Bartholin cyst (Primary Dx) 11/16/2024 Travel 11/14/2024 Travel from Last 3 Months Family History Medical History Relation Name Comments Aneurysm Father Atrial fibrillation Father Ovarian cancer Mother Anesthesia problems Neg Hx Relation Name Status Comments Father Alive Mother Social History Tobacco Use Types Packs/Day Years Used Date Smoking Tobacco: Former Cigarettes - 2015 Passive Smoke Exposure: Current Smokeless [...] EDT Inhaled Oxygen Concentration - - Weight 74.1 kg (163 lb 6.4 oz) 11/16/2024 8:28 A M EDT Height 160 cm (5' 2.99 ) 11/16/2024 8:28 AM EDT Body Mass Index 28.95 11/16/2024 8:28 AM EDT Plan of Treatment Health Maintenance Due Date Last Done Comments Depression Screening 1981 Adult BMI Follow Up Plan 10/20/1987 Zoster (Shingles) Vaccine (1 of 2) 10/20/2019 COVID-19 Vaccine (2 - season) 2023 Influenza Vaccine 12/19/2024 04/05/2009, 04/05/2009 Tobacco Screening 07/13/2025 07/13/2024 Adult BMI Screening 11/16/2025 11/16/2024 Pap Smear 05/24/2027 05/24/2024 DTaP,Tdap and Td Vaccines (2 - Td or Tdap) 12/22/2033 12/23/2023 Medical Devices Not on file Insurance ANTH Care Teams Sql Report Analyst Relationship Specialty Start Date End Date Gerald Tavares DO [address] [place] [address] PCP - General Family Medicine 09/26/21
--- OUTSIDE RECORDS SUMMARY | 2024-11-16 13:07 | XMS_ITS | Encounter Summary ---
Author Organization [facility] tem Address [facility] [id number] [address] [place] [address] Care Team Providers Care Soft Iron Inspector Name Role Phone Gerald Tavares DO Primary Care Provider [phone] Encounter Details Date Type Department Care Team (Latest Contact Info) Description 11/14/2024 Travel Social History Tobacco Use Types Packs/Day [...] on filedocumented in this encounter Care Teams Soft Iron Inspector Relationship Specialty Start Date End Date Gerald Tavares DO [address] [place] [address] PCP - General Family Medicine 09/26/21 documented as of this encounter
--- NOTE | 2024-11-16 13:09 | MM_ITS ---
Patient Name: COLIN MACIAS MR#: [id number] : 1970 Exam Date: 11/16/2024 Ordering Doctor: DR ORACIO SINGH D.O. RADIOLOGY REPORT PROCEDURE: MM TOMOSYNTHESIS SCREENING BI COMPARISON: MM TOMOSYNTHESIS SCREENING BI, 06/05/2023. MG MAMM SCREEN 3D ISABEL CAD, 06/04/2022. MG MAMM SCREEN 3D ISABEL CAD, 04/09/2021. MG MAMM ISABEL SCRN W CAD DIG, 02/23/2014. INDICATIONS: Screening mammogram Calculator Name NCI Breast Cancer Risk Assessment Tool 5 Year Breast Cancer Risk 0.80% Lifetime Breast Cancer Risk 6.00% Personal Breast Cancer No Personal Ovarian Cancer No Treatments None Family Cancers Mother with ovarian cancer at age 54; Grandmother-paternal with kidney cancer at age 65. LOCATION: [facility] BREAST COMPOSITION: There are scattered areas of fibroglandular density. FINDINGS: DIAGNOSTIC CATEGORY 1--NEGATIVE. LEFT BREAST: No significant suspicious finding. RIGHT BREAST: No significant suspicious finding. RECOMMENDATIONS: ROUTINE MAMMOGRAM AND CLINICAL EVALUATION IN 12 MONTHS. PLEASE NOTE: A NORMAL MAMMOGRAM DOES NOT EXCLUDE THE POSSIBILITY OF BREAST CANCER. A CLINICALLY SUSPICIOUS PALPABLE LUMP SHOULD BE BIOPSIED. Dictated by: Wilson Aguilar DO on 11/16/2024 at 16:25 Approved by: Wilson Aguilar DO on 11/16/2024 at 16:26
== END 2024-11-16 13:06 | disposition home or self-care (01) ==
LOC: MAMMO 13:05
PROVIDERS: PCP Family Medicine; Visit Provider Family Medicine
DX: Z12.31 Encounter for screening mammogram for malignant neoplasm of breast (principal); Z80.51 Family history of malignant neoplasm of kidney; Z80.41 Family history of malignant neoplasm of ovary
CPT/HCPCS: 77063; 77067

== ENCOUNTER 2024-12-24 19:28 | Emergency (ER) | payer BC, SELFPAY ==
[2024-12-24 19:34] VITALS: BP 170/80; PULSE 62; TEMP 36.6; O2SAT 99; BMI 28.3
--- OUTSIDE RECORDS SUMMARY | 2024-12-24 19:35 | XMS_ITS | CCD ---
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 [address] [place] [address] VIR COMPREHENSIVE METABOLIC PANE Severino 12-12-2024 Albumin [Mass/Vol] 4.5 g/dL Normal 3.2-5.3 [facility] Comment on above: Performed By: #### C MP #### [facility] ([facility]) [address] [place] [address] VIR ALP [Catalytic activity/Vol] 48 U/L Normal 39-130 [facility] Comment on above: Performed By: #### C MP #### [facility] ([facility]) [address] [place] [address] VIR ALT [Catalytic activity/Vol] 27 U/L Normal <=31 [facility] Comment on above: Performed By: #### C MP #### [facility] ([facility]) [address] [place] [address] VIR Anion gap [Moles/Vol] 5 mmol/L Normal 5-15 [facility] Comment on above: Performed By: #### C MP #### [facility] ([facility]) [address] [place] [address] VIR AST [Catalytic activity/Vol] 23 U/L Normal <=41 [facility] Comment on above: Performed By: #### C MP #### [facility] ([facility]) [address] [place] [address] VIR Bilirubin [Mass/Vol] 1.1 mg/dL Normal 0.3-1.2 [facility] Comment on above: Performed By: #### C MP #### [facility] ([facility]) [address] [place] [address] VIR Calcium [Mass/Vol] 9.2 mg/dL Normal 8.5-10.5 [facility] Comment on above: Performed By: #### C MP #### [facility] ([facility]) [address] [place] [address] VIR Chloride [Moles/Vol] 103 mmol/L Normal 98-109 [facility] Comment on above: Performed By: #### C MP #### [facility] ([facility]) [address] [place] [address] VIR CO2 [Moles/Vol] 31 mmol/L Normal 22-32 [facility] Comment on above: Performed By: #### C MP #### [facility] ([facility]) [address] [place] [address] VIR Creatinine [Mass/Vol] 0.75 mg/dL Normal 0.40-1.00 [facility] Comment on above: Result Comment: METH OD TRACEABLE TO IDMS STANDARD Performed By: #### C MP #### [facility] ([facility]) [address] [place] [address] VIR EGFR (CKD-EPI) NON-RACE DEPENDENT >^90 Normal >=60 [facility] Comment on above: Result Comment: Repo rted eGFR is based on the CKD-EPI 2020 equation that does not use a race coefficient. EGFR not calculated due to patient's gender not being defined. Performed By: #### C MP #### [facility] ([facility]) [address] [place] [address] VIR Glucose [Mass/Vol] 85 mg/dL Normal 65-99 [facility] Comment on above: Performed By: #### C MP #### [facility] ([facility]) [address] [place] [address] VIR Potassium [Moles/Vol] 4.0 mmol/L Normal 3.5-5.0 [facility] Comment on above: Performed By: #### C MP #### [facility] ([facility]) [address] [place] [address] VIR Protein [Mass/Vol] 7.0 g/dL Normal 6.0-8.0 [facility] Comment on above: Performed By: #### C MP #### [facility] ([facility]) [address] [place] [address] VIR Sodium [Moles/Vol] 139 mmol/L Normal 134-146 [facility] Comment on above: Performed By: #### C MP #### [facility] ([facility]) [address] [place] [address] VIR Urea nitrogen [Mass/Vol] 10 mg/dL Normal 5-23 [facility] Comment on above: Performed By: #### C MP #### [facility] ([facility]) [address] [place] [address] VIR Orders Onlyon 11-28-2024 Orders Only [id number] Munir Wakefield A 1970 F Date Provider Department Center 11/28/2024 [id number], [facility] Family History Problem Relation Age of Onset Cancer Mother Coronary artery disease Father Family Status - Relation Status Age at Mother Father Alive Normal [facility] Office Visiton 11-24-2024 Follow-up visit [id number] Munir Wakefield A 1970 F Date Provider Department Center 11/24/2024 [id number] [facility] Family History Problem Relation Age of Onset Cancer Mother Coronary artery disease Father Family Status - Relation Status Age at Mother Father Alive Level of Service:09793 CT OFFICE/OUTPATIENT NEW MODERATE MDM 45 MINUTES Reason for Visit and Comments: Atrial Fibrillation [80] New Patient [632] Surgery Cl. vaginal reconstruction from Bartholow cyst [Other] Normal [facility] HCG ( test) Ql (U)o n 06-23-2024 Beta HCG ( test) Ql (U) Negative Normal NEG [facility] Comment on above: Performed By: #### 2 106-3 #### [facility] ([id number]) [address] [place] [address] Surgical Pathologyon 025 Surgical Pathology Normal [facility] Comment on above: Result Comment: [facility] [address] [place] [address] Surgical Pathology Consultation Patient Name:TIERA WAKEFIELD:1970 (Age: 53)Gender:FTaken:06/23/2024Reported:06/30/2024Physician(s):Daniel Gold M.D. ([phone])Copy To: Rec. #:[id number]: #[id number] Final Pathologic Diagnosis Right Bartholin's gland, resection: Fibromuscular tissue includes clusters of glandular structures consistent with Bartholin's gland. Focal chronic inflammation is noted. No atypia identified. Report Electronically Signed Out acr/06/30/2024eugene George MD Interpretation performed at [facility], [facility] [facility], [place] [address], License number: [id number]. Clinical History Recurrent abscess of Bartholin gland. Gross Description Received in formalin labeled ZILCH, Bartholins gland is a pink-guzmán rubbery portion of soft tissue, 1.5 x 1.2 x 0.8 cm. No skin is identified. The specimen is inked black. The specimen serially sectioned to reveal pink-guzmán rubbery cut surfaces. Two sales representative livestock cross-sections are submitted in a single cassette. (1, ss, [id number],m8.1) DM. /06/23/2024NS Specimen(s) Received Right Bartholin's gland Fee Codes(s): 1; 06872 No Panel Informationon 06-15 Pure T[employer] Audiometry Audio indicated normal hearing sensitivity 250-3000 Hz, sloping to a mild sensorineural hearing loss 9611-7897 Hz in the left ear. The right ear exhibited normal hearing 250-2000 Hz, sloping to a mild sensorineural hearing loss 6873-5863 Hz, returning to normal hearing at 8000 Hz. [facility] CBC AND AUTO DIFFon 06-10-19 25 ABSOLUTE BASOPHIL 0.1 X10E9/L Normal 0.0-0.2 [facility] Comment on above: Performed By: #### C MP, CBCA #### [facility] ([id number]) [address] [place] [address] ABSOLUTE NEUTROPHIL 2.4 X10E9/L Normal 1.5-6.6 [facility] Comment on above: Performed By: #### C MP, CBCA #### [facility] ([id number]) [address] [address] Basophils/100 WBC (Bld) 1.4 % Normal [facility] Comment on above: Performed By: #### C MP, CBCA #### [facility] ([id number]) [address] [place] [address] Eosinophils (Bld) [#/Vol] 0.2 10*3/uL Normal 0.0-0.4 [facility] Comment on above: Performed By: #### C MP, CBCA #### [facility] ([id number]) [address] [place] [address] Eosinophils/100 WBC (Bld) 3.9 % Normal [facility] Comment on above: Performed By: #### C MP, CBCA #### [facility] ([id number]) [address] [address] [place] [address] Erythrocyte distribution width (RBC) [Ratio] 12.8 % Normal 11.5-15.0 [facility] Comment on above: Performed By: #### C MP, CBCA #### [facility] ([id number]) [address] [place] [address] Hematocrit (Bld) [Volume fraction] 43.3 % Normal 35-47 [facility] Comment on above: Performed By: #### C MP, CBCA #### [facility] ([id number]) [address] [place] [address] Hemoglobin (Bld) [Mass/Vol] 14.6 g/dL Normal 11.7-15.5 [facility] Comment on above: Performed By: #### C MP, CBCA #### [facility] ([id number]) [address] [place] [address] Lymphocytes (Bld) [#/Vol] 2.0 10*3/uL Normal 1.0-3.5 [facility] Comment on above: Performed By: #### C MP, CBCA #### [facility] ([id number]) [address] [place] [address] Lymphocytes/100 WBC (Bld) 38.8 % Normal [facility] Comment on above: Performed By: #### C MP, CBCA #### [facility] ([id number]) [address] [place] [address] MCH (RBC) [Entitic mass] 29.8 pg Normal 27-34 [facility] Comment on above: Performed By: #### C MP, CBCA #### [facility] ([id number]) [address] [place] [address] MCHC (RBC) [Mass/Vol] 33.7 g/dL Normal 32-36 [facility] Comment on above: Performed By: #### C MP, CBCA #### [facility] ([id number]) [address] [place] [address] MCV (RBC) [Entitic vol] 88 fL Normal 80-100 [facility] Comment on above: Performed By: #### C MP, CBCA #### [facility] ([id number]) [address] [place] [address] Monocytes (Bld) [#/Vol] 0.4 10*3/uL Normal 0-0.9 [facility] Comment on above: Performed By: #### C MP, CBCA #### [facility] ([id number]) [address] [place] [address] Monocytes/100 WBC (Bld) 8.7 % Normal [facility] Comment on above: Performed By: #### C MP, CBCA #### [facility] ([id number]) [address] [place] [address] Neutrophils/100 WBC (Bld) 47.2 % Normal [facility] Comment on above: Performed By: #### C MP, CBCA #### [facility] ([id number]) [address] [place] [address] Platelet mean volume (Bld) [Entitic vol] 7.6 fL Normal 7-12 [facility] Comment on above: Performed By: #### C MP, CBCA #### [facility] ([id number]) [address] [place] [address] Platelets (Bld) [#/Vol] 272 10*3/uL Normal 150-450 [facility] Comment on above: Performed By: #### C MP, CBCA #### [facility] ([id number]) [address], [facility] [address] [place] [address] RBC COUNT 4.90 X10E12/L Normal 3.80-5.20 [facility] Comment on above: Performed By: #### C MP, CBCA #### [facility] ([id number]) [address], [facility] [address] [place] [address] WBC (Bld) [#/Vol] 5.1 10*3/uL Normal 4.0-11.0 [facility] Comment on above: Performed By: #### C MP, CBCA #### [facility] ([id number]) [address], [facility] [address] [place] [address] CBC with auto diffon 025 Basophils (Bld) [#/Vol] 0.1 10*3/uL [facility] Basophils/100 WBC (Bld) 1.4 % [facility] Eosinophils (Bld) [#/Vol] 0.2 10*3/uL [facility] Eosinophils/100 WBC (Bld) 3.9 % [facility] Erythrocyte distribution width (RBC) [Ratio] 12.8 % 11.5 - 15.0 % [facility] Hematocrit (Bld) [Volume fraction] 43.3 % 35 - 47 % [facility] Hemoglobin (Bld) [Mass/Vol] 14.6 g/dL 11.7 - 15.5 g/dL [facility] Lymphocytes (Bld) [#/Vol] 2 10*3/uL [facility] Lymphocytes/100 WBC (Bld) 38.8 % [facility] MCH (RBC) [Entitic mass] 29.8 pg 27 - 34 pg [facility] MCHC (RBC) [Mass/Vol] 33.7 g/dL 32 - 36 g/dL [facility] MCV (RBC) [Entitic vol] 88 fL 80 - 100 fL [facility] Monocytes (Bld) [#/Vol] 0.4 10*3/uL [facility] Monocytes/100 WBC (Bld) 8.7 % [facility] Neutrophils (Bld) [#/Vol] 2.4 10*3/uL [facility] Neutrophils/100 WBC (Bld) 47.2 % [facility] Platelet mean volume (Bld) [Entitic vol] 7.6 fL 7 - 12 fL [facility] Platelets (Bld) [#/Vol] 272 10*3/uL [facility] RBC (Bld) [#/Vol] 4.9 10*6/uL [facility] WBC corrected for nucl RBC Auto (Bld) [#/Vol] 5.1 [facility] COMPREHENSIVE METABOLIC PANE Severino 06-10-2024 Albumin [Mass/Vol] 4.6 g/dL Normal 3.2-5.3 [facility] Comment on above: Performed By: #### C MITA CBCA #### [facility] ([id number]) [address] [place] [address] ALP [Catalytic activity/Vol] 46 U/L Normal 39-130 [facility] Comment on above: Performed By: #### C MITA, CBCA #### [facility] ([id number]) [address] [place] [address] ALT [Catalytic activity/Vol] 23 U/L Normal 0-31 [facility] Comment on above: Performed By: #### C MITA, CBCA #### [facility] ([id number]) [address] [place] [address] Anion gap [Moles/Vol] 5 mmol/L Normal 5-15 [facility] Comment on above: Performed By: #### C MITA, CBCA #### [facility] ([id number]) [address] [place] [address] AST [Catalytic activity/Vol] 19 U/L Normal 0-41 [facility] Comment on above: Performed By: #### C MITA, CBCA #### [facility] ([id number]) [address] [place] [address] Bilirubin [Mass/Vol] 0.9 mg/dL Normal 0.3-1.2 [facility] Comment on above: Performed By: #### C MITA CBCA #### [facility] ([id number]) [address] [place] [address] Calcium [Mass/Vol] 9.4 mg/dL Normal 8.5-10.5 [facility] Comment on above: Performed By: #### C MITA CBCA #### [facility] ([id number]) [address] [place] [address] Chloride [Moles/Vol] 103 mmol/L Normal 98-109 [facility] Comment on above: Performed By: #### C MITA, CBCA #### [facility] ([id number]) [address] [place] [address] CO2 [Moles/Vol] 32 mmol/L Normal 22-32 [facility] Comment on above: Performed By: #### C MITA CBCA #### [facility] ([id number]) [address] [place] [address] Creatinine [Mass/Vol] 0.83 mg/dL Normal 0.40-1.00 [facility] Comment on above: Result Comment: METH OD TRACEABLE TO IDMS STANDARD Performed By: #### C MITA CBCA #### [facility] ([id number]) [address] [address] [place] [address] GFR/1.73 sq M.predicted among non-blacks MDRD (S/P/Bld) [Vol rate/Area] 84 mL/min/{1.73_m2} Normal >59 [facility] Comment on above: Result Comment: Reported eGFR is based on the CKD-EPI 2020 equation that does not use a race coefficient. Performed By: #### C MITA, CBCA #### [facility] ([id number]) [address] [address] [place] [address] Glucose [Mass/Vol] 65 mg/dL Normal 65-99 [facility] Comment on above: Performed By: #### C MITA CBCA #### [facility] ([id number]) [address] [address] Potassium [Moles/Vol] 4.2 mmol/L Normal 3.5-5.0 [facility] Comment on above: Performed By: #### C MITA CBCA #### [facility] ([id number]) [address] [address] [place] [address] Protein [Mass/Vol] 7.2 g/dL Normal 6.0-8.0 [facility] Comment on above: Performed By: #### C MITA CBCA #### [facility] ([id number]) [address] [address] Sodium [Moles/Vol] 140 mmol/L Normal 134-146 [facility] Comment on above: Performed By: #### C MITA, CBCA #### [facility] ([id number]) [address] [address] Urea nitrogen [Mass/Vol] 14 mg/dL Normal 5-23 [facility] Comment on above: Performed By: #### C MITA, CBCA #### [facility] ([id number]) [address] [place] [address] Comprehensive metabolic pane severino 06-10-2024 Albumin [Mass/Vol] 4.6 g/dL 3.2 - 5.3 g/dL [facility] ALP [Catalytic activity/Vol] 46 U/L 39 - 130 U/L [facility] ALT No additional P-5'-P [Catalytic activity/Vol] 23 U/L 0 - 31 U/L [facility] Anion gap [Moles/Vol] 5 mmol/L 5 - 15 mmol/L [facility] AST [Catalytic activity/Vol] 19 U/L 0 - 41 U/L [facility] Bilirubin [Mass/Vol] 0.9 mg/dL 0.3 - 1.2 mg/dL [facility] Calcium [Mass/Vol] 9.4 mg/dL 8.5 - 10.5 mg/dL [facility] Chloride [Moles/Vol] 103 mmol/L 98 - 109 mmol/L [facility] CO2 [Moles/Vol] 32 mmol/L 22 - 32 mmol/L [facility] Creatinine [Mass/Vol] 0.83 mg/dL 0.40 - 1.00 mg/dL [facility] Comment on above: METHOD TRACEABLE TO [facility] STANDARD eGFR (CKD-EPI)non-race dependent 84 - PINF [facility] Comment on above: Reported eGFR is based on the CKD-EPI 2020 equation that does not use a race coefficient. Glucose [Mass/Vol] 65 mg/dL 65 - 99 mg/dL [facility] Potassium [Moles/Vol] 4.2 mmol/L 3.5 - 5.0 mmol/L [facility] Protein [Mass/Vol] 7.2 g/dL 6.0 - 8.0 g/dL [facility] Sodium [Moles/Vol] 140 mmol/L 134 - 146 mmol/L [facility] Urea nitrogen [Mass/Vol] 14 mg/dL 5 - 23 mg/dL [facility] IGP,APTIMA HPV,AGE GDLNon AGE GDLN ACOG TESTING Note . [facility] Comment on above: TESTS RESULT FLAG UN ITS REF RANGE LAB Clinician Provided Cytology Information Source.............Cervix;Endocervix No. of containers..01 ThinPrep Vial Age Jasviro MARTYOG Emma... 29 FLAG LEGEND: L-Low Normal,H-High Normal,LL-Alert Low,HH-Alert High <-Panic Low,>-Panic High,A-Abnormal,AA-Critical Abnormal Performed at: 01 =G [address] [place] [address] Crystal Mckeon MD, HPV APTIMA Negative Negative [facility] Comment on above: This nucleic acid am plification test detects fourteen high- risk HPV types (16,18,31,33,35,39,45,51,52,56,58,59,66,68) without differentiation. Performed at: =[address] [id number] Mold Holder: Crystal Mckeon MD, Phone: [phone] Performed at: [address] [id number] Mold Holder: Crystal Mckeon MD, Phone: [phone] IGP, APTIMA HPV, RFX 16/18,45 Note . [facility] Comment on above: TESTS RESULT FLAG UN ITS REF RANGE LAB DIAGNOSIS: 02 NEGATIVE FOR INTRAEPITHELIAL LESION OR MALIGNANCY. CELLULAR CHANGES ASSOCIATED WITH ATROPHY ARE PRESENT. Specimen adequacy: 02 Satisfactory for evaluation. Endocervical component may not be distinguished in cases of atrophy. Performed by: 02 Isadora Jerome, Electronic Warfare Technician ([facility]) . 02 Note: Note 02 The Pap [...] <-Panic Low,>-Panic High,A-Abnormal,AA-Critical Abnormal Performed at: [address] [address] Crystal Mckeon MD, BRUSH-SPATULA CERVIX ENDOCERVIX [facility] Otogami XR Knee Complete 4+ Views Il kavitha 12-30-2023 XR Knee Complete 4+ Views [...] mGy = na DAP = na Normal [facility] ED Clinical Summaryon 2023 ED Clinical Summary ED Clinical Summary [place] [id number] ED Clinical Summary Person Information Name: TIERA WAKEFIELD [facility] Age: 53 Years : 1970 Sex: Female Language: Swiss PCP: GERALD TAVARES DO Marital Status: Phone: [phone] Visit Id: Visit Reason: Knee pain-swelling; Knee [...] 12/29/2023 21:33:24 12/29/2023 21:33:24 12/29/2023 21:33:24 AD[address]ESS: [address] [id number] PHYS DOC NOTES: MEDICAL INFORMATION: Prescriptions Given: Medications to Continue with No Changes Other Medications acetaminophen-hydrocodone (Aynor 325 mg-5 mg oral tablet) 1 Tablets [...] Follow up: With: Address: When: GERALD TAVARES [employer] [place] [address] Business (1) In 3 days DIAGNOSIS: Contusion of knee Normal [facility] ED Note-Physicianon 12-29-19 ED Note-Physician ED [...] and Complexity of Problems Differential Diagnosis: [] [facility] Data External documents reviewed: N/A My EKG [...] Information GERALD TAVARES In 3 days [address] [place] [id number]- [employer] (1) Additional Instructions: Patient Education Contusion Problem List/Past Medical History Ongoing Acid reflux Ellison's esophagus Colon polyp Degenerative disc disease Hiatal hernia History of colon polyps History of diverticulitis Irregular Z line of esophagus OA - Osteoarthritis Rectal polyp Schatzki's ring Historical Dysphagia Esophagitis, [place] grade B Gallbladder stones Irregular bowel habits RLQ abdominal pain Upper abdominal pain Procedure/Surgical History Colonoscopy (05/02/2021), Anxiety depression, Anxiety disorder, Arthroscopy of knee, Cholecystectomy, Colonoscopy, Dilation and curettage of uterus, EGD (esophagogastroduodenoscopy) gastric outlet reduction, Excision of Bartholin cyst, [...] Topical, Daily, Not taking Mylanta Maximum Strength Aynor 325 mg-5 mg oral tablet, 1 tab(s), [...] smoker, qu (more content not included)... Normal [facility] Comment on above: Result Comment: Elec tronically Signed By: Manav Fisher DO\.br\Date and Time Signed: 12/29/23 21:22 EDT ED Patient Summaryon 024 ED Patient Summary ED Patient Summary [place] [id number] Patient Discharge Instructions Person Information Name: TIERA WAKEFIELD Age: 53 Years Arrival Date: 12/29/2023 19:59:47 Discharge Diagnosis: Contusion of knee Primary Care Physician: GERALD TAVARES DO Provider Information Primary Provider: Manav Fisher DO Advanced Pool Coordinator:None The exam and treatment you received in the Emergency Department were for an urgent problem and are not intended as complete care. It is important that you follow up with a doctor, nurse practitioner, or physician?s assistant manager quality management for ongoing care. If your symptoms become worse or you do not improve as expected and you are unable to reach your usual health care provider, you should return to the Emergency Department. We are available 24 hours a day. TIERA WAKEFIELD has been given the following list of patient education materials, prescriptions and follow-up instructions: Follow-up Instructions: With: Address: When: GERALD TAVARES [address] [place], [place] [id number] Business (1) In 3 days In the event that this physician does not participate in your insurance network, please consult with your insurance company to find a nearby participating provider. Patient Education Materials: Contusion A MESSAGE TO ALL PATIENTS REGARDING OPIOIDS PRESCRIPTION OPIOIDS: WHAT YOU NEED TO KNOW Prescription opioids can be used to help relieve jpnajzfw-ee-jimhmi pain and are often prescribed following a [...] guidance from the Food and Drug Administration (www.fda.gov/Drugs/Resources ForYou). ? Visit www.cdc.gov/drugoverdose to learn about the risks of opioids abuse and overdose. ? If you believe you may be struggling with addiction, tell your health critical care cns and ask for guidance or call [facility]?S National Helpline at 7-559-880-QAVE. m Source: Department of [facility] (more content not included)... Normal [facility] Quick Strepon 02-18-2023 S. pyogenes Org specific cx Ql (Throat) Negative [facility] Other Quick Strep [facility] Other CBC AUTO DIFFon 06-04-2022 BASO # 0.0 103/ul Normal 0.0-0.1 [place] Comment on above: Performed By: #### C BC #### [facility] [address] [address] [address] Jacob Mcdaniel Basophils/100 WBC (Bld) 0.8 % Normal 0.2-2.0 [place] Comment on above: Performed By: #### C BC #### [facility] [address] [place] [address] Dr. Jacob Mcdaniel EO # 0.2 103/ul Normal 0.0-0.7 [place] Comment on above: Performed By: #### C BC #### [facility] [address] [place] [address] Dr. Jacob Mcdaniel Eosinophils/100 WBC (Bld) 3.0 % Normal 0.9-7.0 [place] Comment on above: Performed By: #### C BC #### [facility] [address] [place] [address] Dr. Jacob Mcdaniel Erythrocyte distribution width (RBC) [Ratio] 12.1 % Normal 11.0-15.0 [place] Comment on above: Performed By: #### C BC #### [facility] [address] [place] [address] Dr. Jacob Mcdaniel Hematocrit (Bld) [Volume fraction] 42.5 % Normal 36.0-48.0 [place] Comment on above: Performed By: #### C BC #### [facility] [address] [place] [address] Dr. Jacob Mcdaniel Hemoglobin (Bld) [Mass/Vol] 14.7 g/dL Normal 12.0-16.0 [place] Comment on above: Performed By: #### C BC #### [facility] [address] [place] [address] Dr. Jacob Mcdaniel IG # 0.02 10e3/ul Normal 0.00-0.03 [facility] Comment on above: Performed By: #### C BC #### [facility] [address] [place] [address] Dr. Jacob Mcdaniel IG % 0.4 % Normal 0.0-0.5 [facility] Comment on above: Performed By: #### C BC #### [facility] [address] [place] [address] Dr. Jacob Mcdaniel LYMPH # 1.7 103/ul Normal 1.2-3.8 [facility] Comment on above: Performed By: #### C BC #### [facility] [address] [address] [address] Jacob Mcdaniel Lymphocytes/100 WBC (Bld) 31.8 % Normal 20.5-60.0 [place] Comment on above: Performed By: #### C BC #### [facility] [address] [address] [address] Jacob Mcdaniel MANUAL DIFF REQ NO Normal The [facility] Comment on above: Performed By: #### C BC #### [facility] [address] [place] [address] Dr. Jacob Mcdaniel MCH (RBC) [Entitic mass] 30.1 pg Normal 26.7-34.0 [facility] Comment on above: Performed By: #### C BC #### [facility] [address] [place] [address] Dr. Jacob Mcdaniel MCHC (RBC) [Mass/Vol] 34.6 g/dL Normal 29.9-35.2 [facility] Comment on above: Performed By: #### C BC #### [facility] [address] [place] [address] Dr. Jacob Mcdaniel MCV (RBC) [Entitic vol] 86.9 fL Normal 81.0-99.0 [place] Comment on above: Performed By: #### C BC #### [facility] [address] [place] [address] Dr. Jacob Mcdaniel MONO # 0.3 103/ul Normal 0.3-0.8 [facility] Comment on above: Performed By: #### C BC #### [facility] [address] [place] [address] Dr. Jacob Mcdaniel Monocytes/100 WBC (Bld) 6.2 % Normal 1.7-12.0 [facility] Comment on above: Performed By: #### C BC #### [facility] [address] [place] [address] Dr. Jacob Mcdaniel NEUT # 3.1 103/ul Normal 1.4-6.5 [facility] Comment on above: Performed By: #### C BC #### [facility] [address] [address] [address] Jacob Mcdaniel Neutrophils/100 WBC (Bld) 57.8 % Normal 43.0-75.0 [place] Comment on above: Performed By: #### C BC #### [facility] [address] [address] [address] Jacob Mcdaniel Platelet mean volume (Bld) [Entitic vol] 8.9 fL Critically low 9.5-13.5 [facility] Comment on above: Performed By: #### C BC #### [facility] [address] [address] [address] Jacob Mcdaniel PLT 263 103/ul Normal 150-450 [place] Comment on above: Performed By: #### C BC #### [facility] [address] [address] [address] Jacob Mcdaniel RBC 4.89 106/ul Normal 4.20-5.40 [place] Comment on above: Performed By: #### C BC #### [facility] [address] [address] [address] Jacob Mcdaniel WBC 5.3 103/ul Normal 4.0-11.0 [place] Comment on above: Performed By: #### C BC #### [facility] [address] [address] [address] Jacob Mcdaniel MAMM SCREEN 3D ISABEL CADon 06-04-2022 MG MAMM SCREEN 3D ISABEL CAD Patient: TIERA WAKEFIELD Exam Date: 06/04/2022 : 1970 Gender:F Ordering : DR HERB MEDEL . Admission #: [id number] Family : DR GERALD TAVARES D.O. Order #: [id number] CLICK HERE TO VIEW EXAM RADIOLOGY REPORT [...] cancer at age 64. LOCATION: [facility] BREAST COMPOSITION: Heterogeneously dense,which may obscure [...] MD on 06/04/2022 at 14:03 Normal [facility] PROF 14(COMP METB)on 06-04- 023 Albumin [Mass/Vol] 4.0 g/dL Normal 3.4-5.0 [place] Comment on above: Performed By: #### T MACKENZIE, CMP #### [facility] [address] [place] [address] Dr. Jacob Mcdaniel Albumin/Globulin [Mass ratio] 1.2 {ratio} Normal [place] Comment on above: Performed By: #### T MACKENZIE, CMP #### [facility] [address] [place] [address] Dr. Jacob Mcdaniel ALP [Catalytic activity/Vol] 69 U/L Normal 46-116 [place] Comment on above: Performed By: #### T MACKENZIE, CMP #### [facility] [address] [place] [address] Dr. Jacob Mcdaniel ALT [Catalytic activity/Vol] 40 U/L Normal 14-59 [place] Comment on above: Performed By: #### T MACKENZIE, CMP #### [facility] [address] [place] [address] Dr. Jacob Mcdaniel Anion gap [Moles/Vol] 12.1 mmol/L Normal [place] Comment on above: Performed By: #### T MACKENZIE, CMP #### [facility] [address] [place] [address] Dr. Jacob Mcdaniel AST [Catalytic activity/Vol] 21 U/L Normal 15-37 [facility] Comment on above: Performed By: #### T SH, CMP #### [facility] [address] [place] [address] Dr. Jacob Mcdaniel Bilirubin [Mass/Vol] 0.8 mg/dL Normal 0.2-1.0 [place] Comment on above: Performed By: #### T SH, CMP #### [facility] [address] [place] [address] Dr. Jacob Mcdaniel Calcium [Mass/Vol] 9.5 mg/dL Normal 8.5-10.1 [facility] Comment on above: Performed By: #### T SH, CMP #### [facility] [address] [place] [address] Dr. Jacob Mcdaniel Chloride [Moles/Vol] 103 mmol/L Normal 98-107 [facility] Comment on above: Performed By: #### T SH, CMP #### [facility] [address] [place] [address] Dr. Jacob Mcdaniel CO2 [Moles/Vol] 31.9 mmol/L Normal 21.0-32.0 [facility] Comment on above: Performed By: #### T SH, CMP #### [facility] [address] [place] [address] Dr. Jacob Mcdaniel Creatinine [Mass/Vol] 0.84 mg/dL Normal 0.55-1.02 [place] Comment on above: Performed By: #### T SH, CMP #### [facility] [address] [place] [address] Dr. Jacob Mcdaniel EGFR-AF MALDIVIAN >60 Normal >=60 [facility] Comment on above: Performed By: #### T SH, CMP #### [facility] [address] [place] [address] Dr. Jacob Mcdaniel EGFR-NON AF MALDIVIAN >60 Normal >=60 [facility] Comment on above: Performed By: #### T SH, CMP #### [facility] [address] [place] [address] Dr. Jacob Mcdaniel Globulin (S) [Mass/Vol] 3.4 g/dL Normal [facility] Comment on above: Performed By: #### T SH, CMP #### [facility] [address] [address] [address] Jacob Mcdaniel Glucose [Mass/Vol] 105 mg/dL Normal 74-106 [place] Comment on above: Performed By: #### T SH, CMP #### [facility] [address] [address] [address] Jacob Mcdaniel Potassium [Moles/Vol] 4.0 mmol/L Normal 3.5-5.1 [place] Comment on above: Performed By: #### T SH, CMP #### [facility] [address] [address] [address] Jacob Mcdaniel Protein [Mass/Vol] 7.4 g/dL Normal 6.4-8.2 [place] Comment on above: Performed By: #### T MACKENZIE, CMP #### [facility] [address] [address] [address] Jacob Mcdaniel Sodium [Moles/Vol] 143 mmol/L Normal 136-145 [place] Comment on above: Performed By: #### T SH, CMP #### [facility] [address] [address] [address] Jacob Mcdaniel Urea nitrogen [Mass/Vol] 12.0 mg/dL Normal 7.0-18.0 [place] Comment on above: Performed By: #### T SH, CMP #### [facility] [address] [address] [address] Jacob Mcdaniel Urea nitrogen/Creatini ne [Mass ratio] 14.3 mg/mg Normal [place] Comment on above: Performed By: #### T SH, CMP #### [facility] [address] [address] [address] Jacob Mcdaniel TSHon 06-04-2022 TSH 0.619 uIU/mL Normal 0.358-3.740 [facility] Comment on above: Performed By: #### T SH, CMP ####[facility] [address] [place] [address]Dr. Jacob Mcdaniel VIT B12 AND FOLATEon 023 Cobalamin (Vitamin B12) [Mass/Vol] 396.0 pg/mL Normal 193.0-986.0 [place] Comment on above: Performed By: #### B 12FOL ####[facility] [address] [place], [place] [address]Co. Jacob Mcdaniel FOLATE 9.30 ng/mL Normal 8.60-58.90 [place] Comment on above: Performed By: #### B 12FOL ####[facility] [address] [place], [place] [address]Iw. Jacob Mcdaniel XR DEXA BONE DENSITYon 06-04 [...] by: FRANK MONROY Date: 2022-06-04 13:14 Normal [place] XR CSPINE 2_3 VIEWSon 2022 XR CSPINE [...] by: LIZBETH TANG Date: 2022-05-30 13:58 Normal [place] PAP ACOG PANEL 2: 30 to 65on 01-29-2022 . . Normal [place] Comment on above: Result Comment: Perf ormed at: BA Performed By: #### [id number] #### [facility] [address] [place] [address] Dr. Jacob Mcdaniel Age Gdln ACOG Testing 30-65 [facility] Comment on above: Performed By: #### [id number] #### [facility] [address] [place] [address] Dr. Jacob Mcdaniel DIAGNOSIS: Comment [facility] Comment on above: Result Comment: NEGA TIVE FOR INTRAEPITHELIAL LESION OR MALIGNANCY. CELLULAR CHANGES ASSOCIATED WITH ATROPHY AND INFLAMMATION ARE PRESENT. Performed at: BA Performed By: #### [id number] #### [facility] [address] [place] [address] Dr. Jacob Mcdaniel HPV Aptima Negative Normal Negative [place] Comment on above: Result Comment: This nucleic acid amplification test detects fourteen high-risk HPV types (16,18,31,33,35,39,45,51,52,56,58,59,66,68) without differentiation. Performed at: =G Performed By: #### [id number] #### [facility] [address] [place] [address] Dr. Jacob Mcdaniel Methodology: Comment [facility] Comment on above: Result Comment: This liquid based ThinPrep(R) pap test was screened with the use of an image guided system. Performed at: WB Performed By: #### [id number] #### [facility] [address] [place] [address] Dr. Jacob Mcdaniel Note: Comment [facility] Comment on above: Result Comment: The Pap smear is a screening test designed to aid in the detection of premalignant and malignant conditions of the uterine cervix. It is not a diagnostic procedure and should not be used as the sole means of detecting cervical cancer. Both false-positive and false-negative reports do occur. . Performed at: WB Performed By: #### [id number] #### [facility] [address] [place] [address] Dr. Jacob Mcdaniel Performed by: Comment Normal [facility] Comment on above: Result Comment: Codey Lorenzo, Electronic Warfare Technician (ASCP) Performed at: BA Performed By: #### [id number] #### [facility] [address] [address] [address] Jacob Mcdaniel Specimen adequacy: Comment Normal [place] Comment on above: Result Comment: Sati sfactory for evaluation. Endocervical and/or squamous metaplastic cells (endocervical component) are present. Performed at: BA Performed By: #### 4 [id number] #### [facility] [address] [address] [address] Jacob Mcdaniel AMYLASEon 09-25-2021 Amylase [Catalytic activity/Vol] 40 U/L Normal 25-115 [place] Comment on above: Performed By: #### C MP, ZEYNEP, LIPA ####[facility] [address] [place] [address]DrDoron Mcdaniel CBC AUTO DIFFon 09-25-2021 BASO # 0.0 103/ul Normal 0.0-0.1 [place] Comment on above: Performed By: #### C BC ####[facility] [address] [address]DrDoron Mcdaniel Basophils/100 WBC (Bld) 0.6 % Normal 0.2-2.0 [place] Comment on above: Performed By: #### C BC ####[facility] [address] [place] [address]DrDoron Mcdaniel EO # 0.1 103/ul Normal 0.0-0.7 [facility] Comment on above: Performed By: #### C BC ####[facility] [address] [address]DrDoron Mcdaniel Eosinophils/100 WBC (Bld) 1.5 % Normal 0.9-7.0 [facility] Comment on above: Performed By: #### C BC ####[facility] [address] [address]DrDoron Mcdaniel Erythrocyte distribution width (RBC) [Ratio] 12.2 % Normal 11.0-15.0 [facility] Comment on above: Performed By: #### C BC ####[facility] [address] [place] [address]Dr. Jacob Mcdaniel Hematocrit (Bld) [Volume fraction] 41.6 % Normal 36.0-48.0 [place] Comment on above: Performed By: #### C BC ####[facility] [address] [place] [address]Dr. Jacob Mcdaniel Hemoglobin (Bld) [Mass/Vol] 13.8 g/dL Normal 12.0-16.0 [place] Comment on above: Performed By: #### C BC ####[facility] [address] [place], [place] [address]Dr. Mitastar Mcdaniel IG # 0.01 10e3/ul Normal 0.00-0.03 [place] Comment on above: Performed By: #### C BC ####[facility] [address] [place], [place] [address]Dr. Jacob Mcdaniel IG % 0.1 % Normal 0.0-0.5 [place] Comment on above: Performed By: #### C BC ####[facility] [address] [place], [place] [address]DrDoron Jacob Jonas LYMPH # 2.8 103/ul Normal 1.2-3.8 [place] Comment on above: Performed By: #### C BC ####[facility] [address] [place], [place] [address]DrDoron Mitastar Mcdaniel Lymphocytes/100 WBC (Bld) 40.1 % Normal 20.5-60.0 [place] Comment on above: Performed By: #### C BC ####[facility] [address] [place], [place] [address]DrDoron Mitastar Mcdaniel MANUAL DIFF REQ NO Normal [facility] Comment on above: Performed By: #### C BC ####[facility] [address] [place], [place] [address]Dr. Jacob Mcdaniel MCH (RBC) [Entitic mass] 30.1 pg Normal 26.7-34.0 [place] Comment on above: Performed By: #### C BC ####[facility] [address] [place] [address]Dr. Jacob Jonas MCHC (RBC) [Mass/Vol] 33.2 g/dL Normal 29.9-35.2 [place] Comment on above: Performed By: #### C BC ####[facility] [address] [place] [address]DrDoron Mcdaniel MCV (RBC) [Entitic vol] 90.6 fL Normal 81.0-99.0 [facility] Comment on above: Performed By: #### C BC ####[facility] [address] [place], [place] [address]DrDoron Mcdaniel MONO # 0.5 103/ul Normal 0.3-0.8 [place] Comment on above: Performed By: #### C BC ####[facility] [address] [place], [place] [address]DrDoron Mcdaniel Monocytes/100 WBC (Bld) 6.9 % Normal 1.7-12.0 [place] Comment on above: Performed By: #### C BC ####[facility] [address] [place], [place] [address]DrDoron Mcdaniel NEUT # 3.5 103/ul Normal 1.4-6.5 [place] Comment on above: Performed By: #### C BC ####[facility] [address] [place], [place] [address]DrDoron Mcdaniel Neutrophils/100 WBC (Bld) 50.8 % Normal 43.0-75.0 [facility] Comment on above: Performed By: #### C BC ####[facility] [address] [place], [place] [address]DrDoron Mcdaniel Platelet mean volume (Bld) [Entitic vol] 9.1 fL Critically low 9.5-13.5 [place] Comment on above: Performed By: #### C BC ####[facility] [address] [place], [place] [address]DrDoron Mcdaniel PLT 279 103/ul Normal 150-450 [facility] Comment on above: Performed By: #### C BC ####[facility] [address] [place], [place] [address]Qo. Jacob Mcdaniel RBC 4.59 106/ul Normal 4.20-5.40 [facility] Comment on above: Performed By: #### C BC ####[facility] [address] [place], [place] [address]Kh. Jacob Mcdaniel WBC 6.9 103/ul Normal 4.0-11.0 [facility] Comment on above: Performed By: #### C BC ####[facility] [address] [place], [place] [address]Ep. Jacob Mcdaniel CT ABD/PELVIS WO CONon 09-25 [...] LOPEZ Date: 2021-09-25 18:01 Normal [facility] CULTURE URINEon 09-25-2021 CULTURE URINE Culture Observations : LIGHT GROWTH OF MIXED GENITAL BRANDT. NO POTENTIAL PATHOGENS SEEN. Normal [facility] Comment on above: Performed By: #### U RCX ####[facility] [address] [place], [place] [address]Od. Mitastar Mcdaniel Covid-19 PCR ([facility])on SARS-CoV-2 (COVID-19) RNA MATT+probe Ql (Unsp spec) Not detected Normal NOT DETECTED [facility] Comment on above: Result Comment: When [...] for this test is supported by the Job Development Specialist of Health and Human Service's declaration that [...] be used). Performed By: #### C VDTBH ####[facility] [address] [place], [place] [address]Oz. Jacob Mcdaniel ER URINE PROFILEon 2 Bilirubin Ql (U) Negative Normal NEGATIVE [facility] Comment on above: Performed By: #### E PEG SHAH UMICRO #### [facility] [address] [address] [address] Jacob Mcdaniel Clarity (U) CLEAR Normal CLEAR [facility] Comment on above: Performed By: #### E RUR, PREGU, UMICRO #### [facility] [address] [place] [address] Dr. Jacob Mcdaniel Color (U) LT. YELLOW Normal YELLOW [facility] Comment on above: Performed By: #### E RUR, PREGU, UMICRO #### [facility] [address] [address] [address] Jacob Mcdaniel ERUAHD A micrscopic examina tion will be performed if indicated. Normal [facility] Comment on above: Performed By: #### E RUR, PREGU, UMICRO #### [facility] [address] [place] [address] Dr. Jacob Mcdaniel Glucose Ql (U) Negative Normal NEGATIVE [facility] Comment on above: Performed By: #### E RUR, PREGU, UMICRO #### [facility] [address] [place] [address] Dr. Jacob cMdaniel Hemoglobin Ql (U) Negative Normal NEGATIVE [facility] Comment on above: Performed By: #### E RUR, PREGU, UMICRO #### [facility] [address] [place] [address] Dr. Jacob Mcdaniel Ketones Ql (U) Negative Normal NEGATIVE [facility] Comment on above: Performed By: #### E RUR, PREGU, UMICRO #### [facility] [address] [place] [address] Dr. Jacob Mcdaniel LEUKOCYTES MODERATE Abnormal NEGATIVE [facility] Comment on above: Performed By: #### E RUR, PREGU, UMICRO #### [facility] [address] [place] [address] Dr. Jacob Mcdaniel Nitrite Ql (U) Negative Normal NEGATIVE [facility] Comment on above: Performed By: #### E RUR, PREGU, UMICRO #### [facility] [address] [place] [address] Dr. Jacob Mcdaniel pH (U) 7.0 [pH] Normal 5-9 [facility] Comment on above: Performed By: #### PEG ROJO UMICRO #### [facility] [address] [address] [address] Jacob Mcdaniel SPEC GRAVITY 1.010 Normal 1.005-<=1.0 25 [place] Comment on above: Performed By: #### PEG ROJO UMICRO #### [facility] [address] [address] [address] Jacob Mcdaniel UA PROTEIN Negative Normal NEGATIVE/ TRACE [facility] Comment on above: Performed By: #### PEG ROJO UMICRO #### [facility] [address] [place] [address] Dr. Jacob Mcdaniel UR MICRO IND INDICATED Normal [place] Comment on above: Performed By: #### PEG ROJO UMICRO #### [facility] [address] [place] [address] Dr. Jacob Mcdaniel Urobilinogen Qn (U) 0.2 {Tessy'U}/dL Normal 0.2 - 1.0 [place] Comment on above: Performed By: #### PEG ROJO UMICRO #### [facility] [address] [place] [address] Dr. Jacob Mdcaniel LIPASEon 09-25-2021 Lipase [Catalytic activity/Vol] 100.0 U/L Normal 73.0-393.0 [place] Comment on above: Performed By: #### C MP, ZEYNEP, LIPA ####[facility] [address] [place] [address]Dr. Jacob Mcdaniel URon 09-25-2021 , QUAL Negative Normal NEGATIVE The [facility] Comment on above: Performed By: #### PEG ROJO UMICRO #### [facility] [address] [place] [address] Dr. Jacob Mcdaniel PROF 14(COMP METB)on 022 Albumin [Mass/Vol] 3.8 g/dL Normal 3.4-5.0 The [facility] Comment on above: Performed By: #### C MP, ZEYNEP, LIPA ####[facility] [address] [place] [address]Dr. Jacob Jonas Albumin/Globulin [Mass ratio] 1.1 {ratio} Normal [place] Comment on above: Performed By: #### C MP, ZEYNEP, LIPA ####[facility] [address] [place] [address]Dr. Jacob Jonas ALP [Catalytic activity/Vol] 76 U/L Normal 46-116 [facility] Comment on above: Performed By: #### C MP, ZEYNEP, LIPA ####[facility] [address] [place] [address]Dr. Mitastar Mcdaniel ALT [Catalytic activity/Vol] 43 U/L Normal 14-59 [place] Comment on above: Performed By: #### C MP, ZEYNEP, LIPA ####[facility] [address] [place], [place] [address]Dr. Mitastar Mcdaniel Anion gap [Moles/Vol] 11.9 mmol/L Normal [place] Comment on above: Performed By: #### C MP, ZEYNEP, LIPA ####[facility] [address] [place], [place] [address]Dr. Mitastar Mcdaniel AST [Catalytic activity/Vol] 24 U/L Normal 15-37 [place] Comment on above: Performed By: #### C MP, ZEYNEP, LIPA ####[facility] [address] [place], [place] [address]Dr. Jacob Jonas Bilirubin [Mass/Vol] 0.3 mg/dL Normal 0.2-1.0 The [facility] Comment on above: Performed By: #### C MP, ZEYNEP, LIPA ####[facility] [address] [place], [place] [address]Dr. Mitastar Mcdaniel Calcium [Mass/Vol] 8.6 mg/dL Normal 8.5-10.1 [facility] Comment on above: Performed By: #### C MP, ZEYNEP, LIPA ####[facility] [address] [place], [place] [address]Dr. Jacob Mcdaniel Chloride [Moles/Vol] 104 mmol/L Normal 98-107 [facility] Comment on above: Performed By: #### C ZEYNEP FAN LIPA ####[facility] [address] [place] [address]Dr. Jacob Mcdaniel CO2 [Moles/Vol] 27.7 mmol/L Normal 21.0-32.0 [facility] Comment on above: Performed By: #### C ZEYNEP FAN LIPA ####[facility] [address] [place] [address]Dr. Jacob Mcdaniel Creatinine [Mass/Vol] 0.89 mg/dL Normal 0.55-1.02 [facility] Comment on above: Performed By: #### C ZEYNEP FAN LIPA ####[facility] [address] [place] [address]Dr. Jacob Mcdaniel EGFR-AF MALDIVIAN >60 Normal >=60 The [facility] Comment on above: Performed By: #### C ZEYNEP FAN LIPA ####[facility] [address] [place] [address]Dr. Jacob Mcdaniel EGFR-NON AF MALDIVIAN >60 Normal >=60 [facility] Comment on above: Performed By: #### C ZEYNEP FAN LIPA ####[facility] [address] [place] [address]Dr. Jacob Mcdaniel Globulin (S) [Mass/Vol] 3.5 g/dL Normal [facility] Comment on above: Performed By: #### C ZEYNEP FAN LIPA ####[facility] [address] [place] [address]Dr. Jacob Mcdaniel Glucose [Mass/Vol] 91 mg/dL Normal 74-106 [facility] Comment on above: Performed By: #### C ZEYNEP FAN LIPA ####[facility] [address] [place] [address]Dr. Jacob Mcdaniel Potassium [Moles/Vol] 3.6 mmol/L Normal 3.5-5.1 [facility] Comment on above: Performed By: #### C ZEYNEP FAN LIPA ####[facility] [address] [place] [address]Dr. Jacob Mcdaniel Protein [Mass/Vol] 7.3 g/dL Normal 6.4-8.2 [facility] Comment on above: Performed By: #### C MP, ZEYNEP, LIPA ####[facility] [address] [place] [address]Dr. Jacob Mcdaniel Sodium [Moles/Vol] 140 mmol/L Normal 136-145 [facility] Comment on above: Performed By: #### C MP, ZEYNEP, LIPA ####[facility] [address] [place] [address]Dr. Jacob Mcdaniel Urea nitrogen [Mass/Vol] 14.0 mg/dL Normal 7.0-18.0 [facility] Comment on above: Performed By: #### C MP, ZEYNEP, LIPA ####[facility] [address] [place] [address]Dr. Jacob Mcdaniel Urea nitrogen/Creatini ne [Mass ratio] 15.7 mg/mg Normal [facility] Comment on above: Performed By: #### C MP, ZEYNEP, LIPA ####[facility] [address] [place] [address]Dr. Jacob Mcdaniel URINE MICROSCOPIC ONLYon BACTERIA SMALL Abnormal NONE SEEN The [facility] Comment on above: Performed By: #### PEG ROJO UMICRO #### [facility] [address] [address] [address] Jacob Mcdaniel Bacteria identified Cx Nom (U) INDICATED Normal [facility] Comment on above: Performed By: #### E RUR PREGU, UMICRO #### [facility] [address] [place] [address] [address] Jacob Mcdaniel CAST NONE SEEN Normal NONE SEEN The [facility] Comment on above: Performed By: #### E RUR PREGU, UMICRO #### [facility] [address] [address] [address] Jacob Mcdaniel Crystals LM Nom (Urine sed) NONE SEEN Normal NONE SEEN The [facility] Comment on above: Performed By: #### E RUR, PREGU, UMICRO #### [facility] [address] [address] [address] Jacob Mcdaniel Epithelial cells LM Ql (Urine sed) FEW Abnormal NONE SEEN /RARE [facility] Comment on above: Performed By: #### E RUR, PREGU, UMICRO #### [facility] [address] [address] [address] Jacob Mcdaniel MUCOUS NONE SEEN Normal NONE SEEN The [facility] Comment on above: Performed By: #### E RUR, PREGU, UMICRO #### [facility] [address] [address] [address] Jacob Mcdaniel RBC NONE SEEN Abnormal 0-2 [facility] Comment on above: Performed By: #### E RUR, PREGU, UMICRO #### [facility] [address] [address] [address] Jacob Mcdaniel WBC 10-20 Abnormal NONE SEEN [facility] Comment on above: Performed By: #### E RUR, PREGU, UMICRO #### [facility] [address] [address] [address] Jacob Mcdaniel XR lumbar spine AP/LAT/FLX/E XTon 07-29-2021 XR lumbar spine AP/LAT/FLX/EXT [facility] [place] [address] XRay Report Signed Patient: Tiera Wakefield MR#: [id number] 21 : 1970 Acct:[id number] Age/Sex: 50 / F ADM Date: 07/29/21 Loc: XD Room: Type: [facility] Attending Dr: Matteo Person MD Ordering [...] Aguilar Jr., D.ODoron07/29/2021 2:43 PM Dictation Location: [place] [address] Transcribed By: [facility] 07/29/21 1443 Dictated By: Wilson Aguilar Jr, DO 07/29/21 144 Signed By: 07/29/21 144 [facility] Operative Reporton 9 Operative Report MR#: [id number] S [facility] Pt. Name: Tiera Wakefield Room #: 0C Discharge Date: Birthdate: 1970 OPERATIVE REPORT DATE OF SURGERY: 12/01/2018 SURGEON: Lizbeth Fleming M.D. PREOPERATIVE DIAGNOSIS: Left shoulder rotator cuff tear. POSTOPERATIVE DIAGNOSIS: Left shoulder rotator cuff tear. LANG PATH THERAPIST: Darinel Bartholomew M.D. ANESTHESIA: General. PROCEDURE PERFORMED: Left shoulder rotator cuff repair. INDICATIONS: The patient is a 48-year-old woman, who had previously had a rotator cuff repair performed by Dr. Melvin in [place]. I reviewed the intraoperative images and it [...] reconstruction. This would be to remove her [place] rotator cuff tendon and instead reconstruct with [...] Robert/Lizbeth Fleming M.D. Date Trans: 12/01/2018 11:50 A/cory DN_[id number] cc: Gerald Tavares D.O. [address] [facility] [address] Normal [facility] POC GLUCOSE LABon 12-01-2018 Glucose [Mass/Vol] 79 mg/dL Normal 70-100 [facility] Comment on above: Performed By: #### 8 5499 #### [facility] [address] POC URINE PREGNANCYon 2018 Beta HCG ( test) Ql (U) Negative Normal NEGATIVE [facility] Comment on above: Result Comment: Perf ormed in PACU Performed By: #### 8 4140 #### [facility] [address] MRI SHOULDER WO CONTRAST LEF Ton 08-18-2018 MRI SHOULDER WO CONTRAST LEFT [facility] Department of Radiology [address] [place] [id number] Patient Name: TIERA WAKEFIELD : 1970 Sex: F Age: Race: White Pt. Location: Patient Status: Ordered Date: 08/10/2018 12:00:00 PM Completed Date: 08/18/2018 07:41 AM Requesting Provider: LIZBETH FLEMING Attending Provider: Report Copy To: Signs & Symptoms: M75.122 Complete rotatr-cuff tear/ruptr of left shoulder, not trauma I10 History: Kaylah, Hardware left shoulder -new number npc mri [id number] / jake per shyam call ref # [id number] *er Comments: , , , Ordering Provider [...] 10. Electronically signed by:Peggy Winchester. Transcribed by: [email or web address], User Resident: Electronically Signed by: PEGGY WINCHESTER @ 08/18/2018 10:48 AM Normal [facility] Comment on above: Order Comment: , , = ========= , Ordering Provider - LIZBETH FLEMING MD , CNOVon 03-16-2018 CNOV Office Visit (SPSNAV) ----TIERA WAKEFIELD ([id number]) 1970 FDate Time Provider Xsfkhtpspb13/27/18 2:55 PM Tahir ANN SPSNAV During your [...] in onemonth's time.Odalis Ahn Provider: ZORAIDA ALMANZAR [[id number]]Allergies As of Date: 03/16/2018 Noted Allergy ReactionASPIRIN [...] FOR* More...Follow-up and Disposition History RecordedEncounter Number: [id number] Status:Closed by Tahir ANN MD on 03/16/18 [facility] PROGRESSon 03-16-2018 Protein mass conc HNO ID: [id number] thor: Tahir Phillips: (none)Author Type: PhysicianType: Progress [...] fatmata in one month's time.Tahir Ann MD [facility] HISTORY PHYSICALon 8 HISTORY PHYSICAL HNO ID: [id number] thor: Sydney Reyna ([facility]) Marisol Hidalgo: (none)Author Type: Physician AssistantType: HANDPFiled: 02/18/2018 9:35 AMNote Text:LOCAL PROCEDURE HISTORY AND PHYSICAL EXAMSERVICE DATE: 02/18/2018SERVICE TIME: 9:34 AMProvisional Diagnosis/Treatment Plan: lumbar disc herniation/Right L5-D1YGSAMMyaikvzyplQGW: This is a 47 year old female [...] 10 Pain Location: Leg-Right Description: Stabbing Intervention: Reposition;Relaxation;Medica tionAssessment/PlanPrincipal Problem: Lumbar disc herniation POA: Unknown Assessment AND Plan: lumbar disc herniation/Right L5-S1 TFESISIGNATURE: Sydney Hidalgo PA-C PATIENT NAME: Tiera MagallonATE: February 18, 2018 : 9:34 AM PAGER: [phone] [facility] NURSING PROGon 02-18-2018 Protein mass conc HNO ID: [id number] thor: Christine (Rn) LAQUITA Downingervice: (none)Author Type: Registered NurseType: Nursing Progress NoteFiled: 02/18/2018 9:54 AMNote Text: Nursing Progress NotePatient Name: Tiera RegaladoN: [id number] Location: Endo/AV Endo Daily Note: 0946 - Pt arrived to post op awake, oriented x 3. Pt statespain has gone from 10/10 to 6/10 to right leg. Pt still having numbnessto right leg. Pedal push/pulls equal and strong. vSSThis note was completed by: Christine Downing RN Normal [facility] OPERATIVE NOon 02-18-2018 OPERATIVE NO HNO ID: [id number] thor: Zoraida Fine: (none)Author Type: PhysicianType: Operative ReportFiled: 02/18/2018 9:44 AMNote Text:Pt presents for f/u. Continues to have Rt leg pain. Appearsuncomfortable, seen by Dr. Ann for surgical eval. Wants to proceed withan injection today to address the presenting symptoms. Consent obtained.Rt side was marked in the pre-op area. Pt is aware of risks, benefits,alternatives, expected outcome, equipment and personnel.[facility] ER approved time out was performed identifying the site, side and levelof procedure prior to start of procedure.[facility] - ELECTIVE PROCEDURELumbar Transforaminal Epidural Steroid Injection and/or Selective NerveRoot Block under FluoroscopyIndication: Lumbar herniated nucleus pulposus, rt thoracolumbarradiculitis(shayne rogenic claudication )The risks and benefits of the [...] I performed theentire procedure.Zoraida Almanzar DO, MBA [facility] PT EDon 02-18-2018 PT ED HNO ID: [id number] thor: Christine RojasRn) LAQUITA Downingervice: (none)Author Type: Registered NurseType: Patient EducationFiled: 02/18/2018 9:58 AMNote Text:POST OP LEARNING RESPONSEINSTRUCTION PROVIDED TO: PatientMETHOD OF INSTRUCTION: Written instruction - handoutsVerbal instructionPATIENT / FAMILY RESPONSE: Verbalizes understanding of: GJHT-BWAAAYNGNYBXGSPVDWIQI-P orrect actions to take to reduce post procedurecomplicationsFOLLOW -UP PLAN: Complete - No need for follow-upSUPPLEMENTAL MATERIAL: NoneREFERRAL (RECOMMENDATION): NoneElectronically Signed By: Christine Downing RN In Department: PROCEDURES [facility] PT ED HNO ID: [id number] thor: Keely RojasRn) LAQUITA Dominguezervice: NursingAuthor Type: Registered NurseType: Patient EducationFiled: 02/18/2018 9:28 AMNote Text:PRE OP LEARNING ASSESSMENTPROCEDURE/SURGERY: PAIN MANAGEMENT: lumbar epiduralREADINESS TO LEARNCOGNITIVE ABILITY: Alert and orientedMOTIVATION TO LEARN: InterestedFAMILY SUPPORT: High - Very involved in pt carePATIENT LEARNS BEST BY: Individual InstructionVerbal InstructionFACTORS AFFECTING LEARNING: NonePHYSICAL LIMITATIONS AFFECTING LEARNING: NoneElectronically Signed By: Keely Dominguez RN [facility] (SPSNAV) ----[facility] WAKEFIELD ([id number]) 1970 [facility] Bljqsntvqy06/30/18 1:55 PM Tahir ANN SPSNAV During your visit today, we recorded the following information about you:Tahir Ann MD 02/16/2018 5:11 PM SignedSPINE SURGERY NEW PATIENTPCP: No primary care provider on file.REFERRING PROVIDER: Dr Shabbir DerasJECTIVEHISTORY OF PRESENT ILLNESS:Tiera Vailrandasanto is a 47 year old female presenting [...] Location: Back-Lower right leg, right buttock Description: Aching;Burning;Sharp;Throbbi ng;Stabbing Duration Amount of Time: 1 Duration Units: Weeks Frequency: Continuous Intervention: Medication advilPain Radiation: to the right foot/feetAggravating Factors: Flexion, Extension, RotationAlleviating Factors: Side-lyingPain Ratio: Pain in the leg(s) is greater than in the backDERMATOMAL DISTRIBUTION:Right: [id number] STATUS: Minimal Ambulation/Wheelchair BoundANTIPLATELET OR ANTICOAGULATION STATUS: [...] Drug use: NoALLERGIESAllergen Reactions- Aspirin Other: See CommentsMEDICATIONS:fluticas one-salmeterol (ADVAIR) 100-50 mcg/dose dsdv Advair Diskus 100 [...] to person, place, and time. Mood pleasant. Benignaffect.MUSCULOSKELETAL VISUAL INSPECTION CERVICAL: WNL THORACIC: WNL LUMBAR: WNLMOTOR: 5/5 in all muscle groups.SENSORY: L5 impaired rightGAIT: Antalgic.NEURO TESTS:+ Lesegue's on RCannot fully extend for SLRDATA REVIEWCCF records reviewedASSESSMENT/PLANAcute L5-S1 herniated diskKimberly A Twyla will continue with medical management of his/her [...] suddenly. Her MRI shows a large extruded L5-M2ycdhkbau.I think there is a high chance that this will resolve spontaneously withnonoperative care. To manage her symptoms in the short term she may benefitfrom an epidural injection. I will see her back in one month's time.Odalis Ahn Provider: ZORAIDA ALMANZAR [[id number]]Allergies As of Date: 02/16/2018 Noted Allergy ReactionASPIRIN [...] Status:Closed by Tahir ANN MD on 02/16/18 [facility] [place] 02-16-2018 TERENCE Telephone (NIQ) -TIERA WAKEFIELD ([id number]) 1970 FDate Time Provider Wgeoimkrol76/30/18 ZORAIDA ALMANZAR During your visit today, we recorded the following information about you:Lisa Elizabeth 02/16/2018 1:54 PM SignedPt at check out scheduled for injection on 02/18/[address] Almanzar at 9AMRight L5-S1 TFESI-DM/-ThinWill sign waiverAura Martin 02/16/2018 2:49 PM SignedESR DONENoecy C Veronica 02/16/2018 2:51 PM SignedEsr doneAllergies As of Date: 02/16/2018 Noted Allergy ReactionASPIRIN 04/07/2014 14 - Other: See CommentsDate Reviewed: 02/15/2018Reviewed by: Zoraida Almanzar - Fully AssessedReason for Visit: Tranforaminal Epidural Steroid Injection [1061]Order(s):SURGICAL REQUEST - ELECTIVE [[id number]] Order #: [id number]: 1Prescriptions as of 02/16/2018 Sig: FLUTICASONE 100 [...] More... Status:Closed by AURA MARTIN on 02/16/18 [facility] HOSPon 02-16-2018 HOSP Patient:Aissatou Wakefield alcon AMRN: Height:5' 3 (1.6 m)Weight:149 lb (67.586 kg)Outpatient Medications as of 02/18/18:diazePAM (VALIUM) 5 mg tabletfluticasone-salmeterol (ADVAIR) 100-50 mcg/dose dsdvalbuterol (PROVENTIL) 2.5 mg /3 mL (0.083 %) nebulizer solutionbaclofen (LIORESAL) 10 mg tabletcitalopram (CELEXA) 20 mg tabletmethylPREDNISolone (MEDROL DOSE-PACK) 4 mg Dose-PackmethylPREDNISolone (MEDROL DOSE-PACK) 4 mg Dose-PackAdmission/Clinic Administered Medications as of 02/18/18:Patient has no admission medications.Problem List:Lumbar disc herniation [M51.26]Allergies:AspirinDat e Verified: 02/18/18Lab ValuesNo results within the last 30 days for the following basenames: K,HCTProgress Notes ([facility] REJ):Elaine Woodson, RN, RN 02/16/2018 4:33 PM SignedPatient Valerie saw Dr. Ann todaySherron is scheduled for an epidural injection sking for pain medication for relief prior to injectionReturn call to [phone] Griffin LPN 02/17/2018 9:21 AM SignedThe prescription you requested has been called in to Dr Tracy dejesus at [facility] to pt and advised.Pt verbalized understanding.Progress Notes ([facility]):Lisa Elizabeth 02/16/2018 1:54 PM SignedPt at check out scheduled for injection on 02/18/[address] Almanzar at 9AMRight L5-S1 TFESI-DM/-Walterll sign eddieiverTraalexia Martin 02/16/2018 2:49 PM SignedESR DONEMiracle Landen Martin 02/16/2018 2:51 PM SignedEsr done [facility] PROGRESSon 02-16-2018 Protein mass conc HNO ID: [id number] thor: Tahir Phillips: (none)Author Type: PhysicianType: Progress [...] her back in one month'stime.Tahir Ann MD [facility] Protein mass conc HNO ID: [id number] thor: Tahir Phillips: (none)Author Type: PhysicianType: Progress [...] Location: Back-Lower right leg, right buttock Description: Aching;Burning;Sharp;Throbbi ng;Stabbing Duration Amount of Time: 1 Duration Units: Weeks Frequency: Continuous Intervention: Medication advilPain Radiation: to the right foot/feetAggravating Factors: Flexion, Extension, RotationAlleviating Factors: Side-lyingPain Ratio: Pain in the leg(s) is greater than in the backDERMATOMAL DISTRIBUTION:Right: L1LJFEBUBCOW STATUS: Minimal Ambulation/Wheelchair BoundANTIPLATELET OR ANTICOAGULATION STATUS: [...] Drug use: NoALLERGIESAllergen Reactions- Aspirin Other: See CommentsMEDICATIONS:fluticas one-salmeterol (ADVAIR) 100-50 mcg/dose dsdv Advair Diskus 100mcg-50 [...] RCannot fully extend for SLRDATA REVIEWCCF records reviewedASSESSMENT/PLANAcute L5-S1 herniated diskKiglendy Wakefield will continue with [...] 16, 2018 : 1:15 PM PAGER: Normal [facility] CNOVon 02-15-2018 CNOV Office Visit (SPNMAV) ----SONALTIERA Au ([id number]) 1970 [facility] Enpxzqmpix61/29/18 1:20 PM ZORAIDA ALMANZAR SPNMAV During your [...] side. [place] in [place]imes over past week.Other Issues Addressed at the Visit Today: None.Precipitating Event: NonePAIN EVALUATION 02/15/2018 Pain Score: 10 Pain Location: Back-Lower Description: Sharp;Stabbing;Numbness;Ting ling;Radiating;Aching Duration Units: Months Frequency: Continuous Intervention: Medication;Reposition;Cold;H eatPain Radiation: to the right foot/feetAggravating Factors: Standing, [...] SleepNo-Recent Elevated Temp with Unknown CauseNo-Diagnosed with OsteoporosisNo-Unintentional Weight Loss or Gain No-Neg Attitude; Back [...] on file.ALLERGIESAllergen Reactions- Aspirin Other: See CommentsCURRENT MEDICATIONS:fluticasone-salm eterol (ADVAIR) 100-50 mcg/dose dsdv Advair Diskus 100 [...] chest pain, history of A-fib, valvular disease, orpacemaker/ICD.RESPIRATORY: Denies SOB, sputum production, and hemoptysis. and asthmaGI: HeartburnGU: Denies change in frequency or urgency, kidney disease, and burning withurination.MUSCULOSKELETA L: Negative for joint pain or swelling, back pain or muscle pain.SKIN: Denies rash or itching.PSYCHOLOGICAL: Denies uncontrolled depression or anxiety.NEURO: HeadachesENDOCRINE: Denies diabetes, thyroid disease.HEMATOLOGY/LYMPHOLOG Y: Denies cancer, bleeding or clotting disorders,anemia,and DVT's.ALLERGIC/IMMUNOLOGICAL : Denies risks for infection, or recent MRSA infections.OBJECTIVE:PHYSICA L EXAMBP 122/84 Ht 160 cm (5' 3 [...] Official reports pending.Loss of disc ht at L5/c5BAYWXIWFRX:See diagnosis.PLAN:Discussed various options including non-surgical and surgical [...] right-sided sciatica [M54.41]Order(s):MRI LUMBAR SPINE WO IVCON [[id number]] Order #: [id number] FUTURE CONSULT TO SPINE SURGERY [[id number]] Order #: [id number]: 1Prescriptions as of 02/15/2018 Sig: FLUTICASONE 100 MCG-SALMETERO* Advair Diskus 100 mcg-50 mcg/* ALBUTEROL SULFATE 2.5 MG/3 ML* albuterol sulfate 2.5 mg/3 mL* BACLOFEN 10 MG TABLET CITALOPRAM 20 MG TABLET citalopram 20 mg tablet METHYLPREDNISOLONE 4 MG TABLE* METHYLPREDNISOLONE 4 MG TABLE* methylprednisolone 4 mg table*Problem List As Of Date: 02/15/2018(None) Status:Closed by ZORAIDA ALMANZAR DO on 02/15/18 Normal [facility] MRI LUMBAR SPINE WO IVCONon 02-15-2018 MRI LUMBAR SPINE WO IVCON * * *Final Report* * *DATE OF EXAM: Feb 15 2018 5:23PM [facility] 0303 - MRI LUMBAR SPINE WO IVCON [...] crest and assume there are 5 lumbar-type vertebrae.[employer]: [id number] Transcribe Date/Time: Feb 15 2018 5:30PDictated by : GERALD MARK MDThis examination was interpreted and the report reviewed and electronically signed by: GERALD MARK MD on Feb 15 2018 5:35PM [id number] [facility] PROGRESSon 02-15-2018 Protein mass conc HNO ID: [id number] thor: Zoraida Fine: (none)Author Type: PhysicianType: Progress [...] on side. Hasbeen seen in ED in [place] numerous times over past week.Other Issues Addressed at the Visit Today: None.Precipitating Event: NonePAIN EVALUATION 02/15/2018 Pain Score: 10 Pain Location: Back-Lower Description: Sharp;Stabbing;Numbness;Ting ling;Radiating;Aching Duration Units: Months Frequency: Continuous Intervention: Medication;Reposition;Cold;H eatPain Radiation: to the right foot/feetAggravating Factors: Standing, [...] SleepNo-Recent Elevated Temp with Unknown CauseNo-Diagnosed with OsteoporosisNo-Unintentional Weight Loss or Gain No-Neg Attitude; Back [...] on file.ALLERGIESAllergen Reactions- Aspirin Other: See CommentsCURRENT MEDICATIONS:fluticasone-salm eterol (ADVAIR) 100-50 mcg/dose dsdv Advair Diskus 100mcg-50 [...] chest pain, history of A-fib, valvular disease, orpacemaker/ICD.RESPIRATORY: Denies SOB, sputum production, and hemoptysis. and asthmaGI: HeartburnGU: Denies change in frequency or urgency, kidney disease, and burningwith urination.MUSCULOSKELETAL: Negative for joint pain or swelling, back pain or musclepain.SKIN: Denies rash or itching.PSYCHOLOGICAL: Denies uncontrolled depression or anxiety.NEURO: HeadachesENDOCRINE: Denies diabetes, thyroid disease.HEMATOLOGY/LYMPHOLOG Y: Denies cancer, bleeding or clotting disorders,anemia,and DVT's.ALLERGIC/IMMUNOLOGICAL : Denies risks for infection, or recent MRSAinfections.OBJECTIVE:PHY SICAL EXAMBP 122/84 Ht 160 cm (5' 3 [...] Official reports pending.Loss of disc ht at L5/[id number]:See diagnosis.PLAN:Discussed various options including non-surgical and surgical [...] from todays visit will be forwarded to consulting/requestingphysici anMichael Almanzar DO, MBA Normal [facility] SR-XR Spine Lumbosacral 2 or 3 Views IMPORTon 02-12-2018 SR-XR Spine Lumbosacral 2 or 3 Views IMPORT Images were obtained outside of [facility] [id number] Normal [facility] Vital Signs Date Time Vital Sign Value Performing Clinician Facility 12-21-2024 13:17040 Body height 160 cm Jeanette BRAGG Work Phone: [facility] 12-21-2024 13:17-040 Body mass index (BMI) [Ratio] 28.7 kg/m2 Jeanette BRAGG Work Phone: [facility] 12-21-2024 13:17040 Body weight 73.48 kg Jeanette BRAGG Work Phone: [facility] 12-21-2024 13:17-040 Diastolic blood pressure 81 mm[Hg] Jeanette BRAGG Work Phone: [facility] 12-21-2024 13:17-040 Heart rate 84 /min Jeanette BRAGG Work Phone: [facility] 12-21-2024 13:17-0400 Respiratory rate 16 /min Jeanette Martinezne PA Work Phone: [facility] 12-21-2024 13:17-0400 SaO2% (BldA) [Mass fraction] 97 % Jeanette Martinezne PA Work Phone: [facility] 12-21-2024 13:17-0400 Systolic blood pressure 129 mm[Hg] Jeanette Martinezne PA Work Phone: [facility] 12-05-2024 14:42-0400 Body height 160 cm [facility] 3 [facility] 12-05-2024 14:42-0400 Body mass index (BMI) [Ratio] 29.05 kg/m2 [facility] 3 [facility] 12-05-2024 14:42-0400 Body weight 74.39 kg [facility] 3 [facility] 11-16-2024 08:28-0400 Body height 160 cm Daniel Gold MD Work Phone: [facility] 11-16-2024 08:28-0400 Body mass index (BMI) [Ratio] 28.95 kg/m2 Daniel Gold MD Work Phone: [facility] 11-16-2024 08:28-0400 Body weight 74.12 kg Daniel Gold MD Work Phone: [facility] 10-10-2024 11:22-0400 Body mass index (BMI) [Ratio] 28.72 kg/m2 Herb Lizy DO Work Phone: [facility] 10-10-2024 11:22-0400 Body weight 73.54 kg Herb Lizy DO Work Phone: [facility] 10-10-2024 11:22-0400 Diastolic blood pressure 72 mm[Hg] Herb Lizy DO Work Phone: [facility] 10-10-2024 11:22-0400 Systolic blood pressure 120 mm[Hg] Herb Lizy DO Work Phone: [facility] 08-16-2024 14:40-0400 Body height 160 cm Ubaldo Biedengurdeep DO Work Phone: [facility] 08-16-2024 14:40-0400 Body mass index (BMI) [Ratio] 28.34 kg/m2 Ubaldo Biedenbach DO Work Phone: [facility] 08-16-2024 14:40-0400 Body weight 72.58 kg Ubaldo Booneedenbach DO Work Phone: [facility] 07-13-2024 09:56-0400 Body height 160 cm Jeanette Tijerina PA Work Phone: [facility] [employer] 07-13-2024 09:56-0400 Body mass index (BMI) [Ratio] 29.16 kg/m2 Jeanette Tijerina PA Work Phone: [facility] 07-13-2024 09:56-0400 Body temperature 98.29 [degF] Jeanette Tijerina PA Work Phone: [facility] 07-13-2024 09:56-0400 Body weight 74.66 kg Jeanette Tijerina PA Work Phone: [facility] [employer] 07-13-2024 09:56-0400 Diastolic blood pressure 84 mm[Hg] Jeanette Tijerina PA Work Phone: [facility] 07-13-2024 09:56-0400 Heart rate 64 /min Jeanette Tijerina PA Work Phone: [facility] 07-13-2024 09:56-0400 Respiratory rate 16 /min Jeanette Tijerina PA Work Phone: [facility] 07-13-2024 09:56-0400 SaO2% (BldA) [Mass fraction] 99 % Jeanette Tijerina PA Work Phone: [facility] 07-13-2024 09:56-0400 Systolic blood pressure 142 mm[Hg] Jeanette Tijerina PA Work Phone: [facility] 06-29-2024 15:03-0400 Body mass index (BMI) [Ratio] 29.05 kg/m2 Jeanette Martinezne PA Work Phone: [facility] 06-29-2024 15:03-0400 Body temperature 97.59 [degF] Jeanette Martinezne PA Work Phone: [facility] [employer] 06-29-2024 15:03-0400 Body weight 74.39 kg Jeanette Martinezne PA Work Phone: [facility] [employer] 06-29-2024 15:03-0400 Diastolic blood pressure 71 mm[Hg] Jeanette Martinezne PA Work Phone: [facility] [employer] 06-29-2024 15:03-0400 Heart rate 61 /min Jeanette Martinezne PA Work Phone: [facility] [employer] 06-29-2024 15:03-0400 SaO2% (BldA) [Mass fraction] 99 % Jeanette Tijerina PA Work Phone: [facility] [employer] 06-29-2024 15:03-0400 Systolic blood pressure 130 mm[Hg] Jeanette Martinezne PA Work Phone: [facility] 06-21-2024 14:09-0500 Body height 160 cm Ubaldo Awilda DO Work Phone: [facility] 06-21-2024 14:09-0500 Body mass index (BMI) [Ratio] 28.34 kg/m2 Ubaldo Sewellgurdeep DO Work Phone: [facility] 06-21-2024 14:09-0500 Body weight 72.58 kg Ubaldo Paolomyragallo DO Work Phone: [facility] 06-10-2024 10:37-0500 Body height 160 cm [facility] [address] [place] [address] [facility] 06-10-2024 10:37-0500 Body mass index (BMI) [Ratio] 28.74 kg/m2 [facility] 6 [facility] 06-10-2024 10:37-0500 Body temperature 98.4 [degF] [facility] 6 [facility] 06-10-2024 10:37-0500 Body weight 73.6 kg [facility] 6 [facility] 06-10-2024 10:37-0500 Diastolic blood pressure 87 mm[Hg] Metro 6 [facility] 06-10-2024 10:37-0500 Heart rate 67 /min [facility] 6 [facility] 06-10-2024 10:37-0500 Respiratory rate 14 /min [facility] 6 [facility] 06-10-2024 10:37-0500 SaO2% (BldA) [Mass fraction] 96 % [facility] 6 [facility] 06-10-2024 10:37-0500 Systolic blood pressure 122 mm[Hg] Metro 6 [facility] 06-08-2024 10:16-0500 Body mass index (BMI) [Ratio] 28.91 kg/m2 Daniel Gold MD Work Phone: [facility] 06-08-2024 10:16-0500 Body weight 74.03 kg Daniel Gold MD Work Phone: [facility] 05-24-2024 14:12-0500 Body mass index (BMI) [Ratio] 29.05 kg/m2 Zeynep BRAGG Work Phone: [facility] 05-24-2024 14:12-0500 Body weight 74.39 kg Zeynep BRAGG Work Phone: [facility] 05-24-2024 14:12-0500 Diastolic blood pressure 76 mm[Hg] Zeynep BRAGG Work Phone: [facility] 05-24-2024 14:12-0500 Systolic blood pressure 120 mm[Hg] Zeynep BRAGG Work Phone: [facility] 12-29-2023 20:04-0400 Body temperature 97.7 [degF] Manav Fisher [facility] 12-29-2023 20:04-0400 Diastolic blood pressure 92 mm[Hg] Manav Fisher [facility] 12-29-2023 20:04-0400 Heart rate 62 /min Manav Fisher [facility] 12-29-2023 20:04-0400 Respiratory rate 18 /min Manav Phillip [facility] 12-29-2023 20:04-0400 SaO2% (BldA) [Mass fraction] 97 % Manav Fisher [facility] 12-29-2023 20:04-0400 Systolic blood pressure 150 mm[Hg] Manav Phillip [facility] 12-23-2023 09:37-0400 Body mass index (BMI) [Ratio] 28.87 kg/m2 Ben De Leon DO Work Phone: [facility] 12-23-2023 09:37-0400 Body temperature 98.01 [degF] Ben De Leon DO Work Phone: [facility] 12-23-2023 09:37-0400 Body weight 73.94 kg Ben De Leon DO Work Phone: [facility] 12-23-2023 09:37-0400 Diastolic blood pressure 70 mm[Hg] Ben De Leon DO Work Phone: [facility] 12-23-2023 09:37-0400 Heart rate 68 /min Ben De Leon DO Work Phone: [facility] 12-23-2023 09:37-0400 SaO2% (BldA) [Mass fraction] 98 % Ben De Leon DO Work Phone: [facility] 12-23-2023 09:37-0400 Systolic blood pressure 110 mm[Hg] Ben De Leon DO Work Phone: [facility] 11-16-2023 15:55-0400 Body height 161.29 cm [facility] 11-16-2023 15:55-0400 Body mass index (BMI) [Ratio] 28.4 kg/m2 [facility] 11-16-2023 15:55-0400 Body temperature 98.4 [degF] [facility] 11-16-2023 15:55-0400 Body weight 73.93 kg [facility] 11-16-2023 15:55-0400 Heart rate 63 /min [facility] 11-16-2023 15:55-0400 Respiratory rate 18 /min [facility] 11-16-2023 15:55-0400 SaO2% (BldA) [Mass fraction] 98 % [facility] 08-04-2023 14:46-0400 Blood Pressure Location Anna Casonmetz [facility] 08-04-2023 14:46-0400 Body temperature 97.52 [degF] Anna Sonya [facility] 08-04-2023 14:46-0400 Diastolic blood pressure 70 mm[Hg] Anna Sonya [facility] 08-04-2023 14:46-0400 Heart rate 84 /min Anna Sonya [facility] 08-04-2023 14:46-0400 Systolic blood pressure 113 mm[Hg] Anna Sonya [facility] 05-19-2023 08:50-0500 Blood Pressure Location Anna Sonya [facility] 05-19-2023 08:50-0500 Body temperature 96.8 [degF] Anna Sonya [facility] 05-19-2023 08:50-0500 Diastolic blood pressure 76 mm[Hg] Anna Sonya [facility] 05-19-2023 08:50-0500 Heart rate 62 /min Anna Hassan [facility] 05-19-2023 08:50-0500 Systolic blood pressure 120 mm[Hg] Anna Hassan [facility] 02-18-2023 10:30-0400 Body height 161.29 cm Christina Rameymond Other [facility] Other 02-18-2023 10:30-0400 Body mass index (BMI) [Ratio] 27.9 kg/m2 Christina Rameymond Other [facility] Other 02-18-2023 10:30-0400 Body temperature 98.2 [degF] Christina Nan Other [facility] Other 02-18-2023 10:30-0400 Body weight 72.58 kg Christina Montana Other [facility] Other 02-18-2023 10:30-0400 Diastolic blood pressure 78 mm[Hg] Christina Rameymond Other [facility] Other 02-18-2023 10:30-0400 Respiratory rate 18 /min Christina Nan Other [facility] Other 02-18-2023 10:30-0400 SaO2% (BldA) [Mass fraction] 98 % Christina Nan Other [facility] Other 02-18-2023 10:30-0400 Systolic blood pressure 134 mm[Hg] Christina Nan Other [facility] Other 12-20-2022 11:40-0400 Body height 161.29 cm Christina Montana Other [facility] Other 12-20-2022 11:40-0400 Body mass index (BMI) [Ratio] 27.55 kg/m2 Christina Montana Other [facility] Other 12-20-2022 11:40-0400 Body temperature 97 [degF] Christina Montana Other [facility] Other 12-20-2022 11:40-0400 Body weight 71.67 kg Christina Montana Other [facility] Other 12-20-2022 11:40-0400 Diastolic blood pressure 79 mm[Hg] Christina Montana Other [facility] Other 12-20-2022 11:40-0400 SaO2% (BldA) [Mass fraction] 98 % Christina Montana Other [facility] Other 12-20-2022 11:40-0400 Systolic blood pressure 142 mm[Hg] Christina Montana Other [facility] Other 11-17-2022 15:48-0400 Blood Pressure Location Anna Hassan [facility] 11-17-2022 15:48-0400 Body temperature 97.16 [degF] Anna Hassan [facility] 11-17-2022 15:48-0400 Diastolic blood pressure 75 mm[Hg] Anna Hassan [facility] 11-17-2022 15:48-0400 Heart rate 63 /min Anna Hassan [facility] 11-17-2022 15:48-0400 Systolic blood pressure 124 mm[Hg] Anna Hassan [facility] 07-26-2021 11:45-0400 Body height 161.29 cm Matteo Raza Other [facility] Other 07-26-2021 11:45-0400 Body mass index (BMI) [Ratio] 28.94 kg/m2 Matteosavita Person Other [facility] Other 07-26-2021 11:45-0400 Body weight 75.3 kg Matteosavita Person Other [facility] Other 07-26-2021 11:45-0400 Diastolic blood pressure 80 mm[Hg] Matteo Person Other [facility] Other 07-26-2021 11:45-0400 SaO2% (BldA) [Mass fraction] 99 % Matteo Raza Other [facility] Other 07-26-2021 11:45-0400 Systolic blood pressure 120 mm[Hg] Matteosavita Person Other [facility] Other Encounters Encounter Date Encounter Type Care Provider Facility Start: 12-21-2024 End: 12-21-2024 Postop follow up visit related to original px Jeanette BRAGG Work Phone: Maggy Romero [facility] - Medical Oncology Comment on above: Encounter for postop erative care (Primary Dx) Start: 12-21-2024 End: 12-21-2024 ambulatory JEANETTE TIJERINA [facility] Start: 12-16-2024 End: 12-16-2024 Evaluation and management of inpatient DANIEL Landen [facility] Start: 12-12-2024 ambulatory DANIEL GOLD [facility] Start: 12-05-2024 End: 12-05-2024 Evaluation and management of inpatient GERALD TAVARES [facility] Start: 11-24-2024 End: 11-24-2024 ambulatory [facility] Start: 11-18-2024 End: 12-05-2024 Admission to [facility] Phone Call Provider 3 [facility] On [facility] Start: 11-17-2024 End: 11-17-2024 Orders Only Daniel Gold MD Work Phone: [facility] Gynecology Oncology, A Department of [facility] Comment on above: Bartholin cyst (Prim jenny Dx); Preop testing Start: 11-17-2024 End: 11-17-2024 Patient encounter status Daniel Gold MD Work Phone: [facility] Start: 11-16-2024 End: 11-16-2024 Office outpatient visit 25 minutes Daniel Gold MD Work Phone: [facility] Gynecology Oncology, A Department of [facility] Comment on above: Bartholin cyst (Prim jenny Dx) Start: 11-16-2024 End: 11-16-2024 ambulatory DANIEL GOLD [facility] Start: 10-10-2024 End: 10-10-2024 Bamboo flowsheet Herb Lizy DO Work Phone: [facility] Start: 10-10-2024 End: 10-10-2024 Bamboo flowsheet Herb Lizy DO Work Phone: [facility] Start: 10-10-2024 End: 10-10-2024 Office outpatient visit 15 minutes Herb Lizy DO Work Phone: [facility] Comment on above: Dyspareunia, female; Postmenopausal state Start: 10-10-2024 End: 10-10-2024 ambulatory HERB LIZY Not Available Start: 10-04-2024 End: 10-04-2024 ambulatory MD Jagjit Parra Facility:[facility] Start: 10-04-2024 End: 10-04-2024 Patient encounter procedure LYDIA CANNON [facility] Start: 08-16-2024 End: 08-16-2024 Office outpatient visit 25 minutes Ubaldo Kaiser DO Work Phone: [facility] Comment on above: Family history of an eurysm (Primary Dx); Pulsatile tinnitus; Sensorineural hearing loss (SNHL) of right ear, unspecified hearing status on contralateral side Start: 08-16-2024 End: 08-16-2024 ambulatory UBALDO KAISER Not Available Start: 08-16-2024 End: 08-16-2024 Bamboo flowsheet Ubaldo Kaiser DO Work Phone: [facility] Start: 08-16-2024 End: 08-16-2024 Bamboo flowsheet Ubaldo Kaiser DO Work Phone: [facility] Start: 07-13-2024 End: 07-13-2024 Office outpatient visit 15 minutes Jeanette BRAGG Work Phone: Maggy Hernandez [email or web address] - Medical Oncology Comment on above: Encounter for postop erative care (Primary Dx); Dyspareunia, female Start: 07-13-2024 End: 07-13-2024 ambulatory [facility] Start: 07-08-2024 End: 07-08-2024 ambulatory Matthew Carrasco Facility:[facility] Start: 06-29-2024 End: 06-29-2024 Postop follow up visit related to original px Jeanette BRAGG Work Phone: Maggy Hernandez [email or web address] - Medical Oncology Comment on above: Encounter for postop erative care (Primary Dx); Post-op pain Start: 06-29-2024 End: 06-29-2024 ambulatory [facility] Start: 06-29-2024 End: 06-29-2024 Telephone encounter Regina Monsivais RN [facility] Gynecology Oncology, A Department of [facility] Start: 06-25-2024 End: 06-25-2024 Telephone encounter Neeta Arnold [facility] Call Linda haro Comment on above: Post-op Problem Start: 06-23-2024 End: 06-23-2024 Evaluation and management of inpatient ELIS APLMA [facility] Start: 06-23-2024 End: 06-23-2024 Evaluation and management of inpatient DANIEL GOLD [facility] Start: 06-21-2024 End: 06-21-2024 ambulatory UBALDO KAISER Not Available Start: 06-21-2024 End: 06-21-2024 Bamboo flowsheet Ubaldo Kaiser DO [facility] Phone: [facility] Start: 06-21-2024 End: 06-21-2024 Bamboo flowsheet Ubaldo Kaiser DO Work Phone: [facility] Start: 06-21-2024 End: 06-21-2024 Office outpatient new 45 minutes Ubaldo Kaiser DO Work Phone: [facility] Comment on above: Sensorineural hearin g loss (SNHL) of right ear, unspecified hearing status on contralateral side (Primary Dx); Pulsatile tinnitus; Tinnitus, unspecified laterality Start: 06-15-2024 End: 06-15-2024 Bamboo flowsheet Florence Howard AUD Work Phone: [facility] Start: 06-15-2024 End: 06-15-2024 Bamboo flowsheet Florence Howard AUD Work Phone: [facility] Start: 06-15-2024 End: 06-15-2024 Patient encounter procedure Florence Howard AUD Work Phone: [facility] Comment on above: Sensorineural hearin g loss, bilateral (Primary Dx); Right-sided tinnitus Start: 06-15-2024 End: 06-15-2024 ambulatory FLORENCE HOWARD Not Available Start: 06-10-2024 ambulatory GERALD TAVARES [facility] Start: 06-10-2024 End: 06-10-2024 Patient encounter procedure [facility] Provider 6 [facility] Comment on above: Bartholin cyst; Preop testing Start: 06-10-2024 End: 06-10-2024 Patient encounter status [facility] 6 [facility] Start: 06-10-2024 End: 06-10-2024 ambulatory [facility] Start: 06-10-2024 Encounter for other preprocedural examination [facility] Start: 06-09-2024 End: 06-09-2024 Orders Only aDniel Gold MD Work Phone: [facility] Gynecology Oncology, A Department of [facility] Comment on above: Bartholin cyst (Prim jenny Dx); Preop testing Start: 06-09-2024 End: 06-09-2024 Patient encounter status Daniel Gold MD Work Phone: [facility] Start: 06-08-2024 End: 06-08-2024 ambulatory [facility] Start: 06-08-2024 End: 06-08-2024 Office outpatient new 60 minutes Daniel Gold MD Work Phone: [facility] Gynecology Oncology, A Department of [facility] Comment on above: Bartholin cyst (Prim [...] End: 12-29-2023 Emergency department patient visit Manav Villa Phillip [facility] Start: 12-23-2023 End: 12-23-2023 ambulatory BEN DE LEON Not Available Start: 12-23-2023 End: 12-23-2023 Office outpatient new 45 minutes Ben De Leon DO Work Phone: [facility] Comment on above: Puncture wound of ri ght foot, initial encounter (Primary Dx) Start: 11-16-2023 End: 11-16-2023 ambulatory [facility] Work Phone: Start: 11-16-2023 End: 11-16-2023 Patient encounter procedure [facility] Work Phone: Start: 09-07-2023 End: 09-07-2023 Patient encounter procedure Elina Boyer [facility] Start: 08-04-2023 End: 08-04-2023 Patient encounter procedure Anna Hassan [facility] Start: 07-14-2023 End: 07-14-2023 Lab Drop off Matthew Carrasco [facility] Start: 05-19-2023 End: 05-19-2023 Patient encounter procedure Anna A Sonya [facility] Start: 05-12-2023 End: 05-12-2023 Lab Drop off Matthew Carrasco [facility] Start: 02-18-2023 End: 02-18-2023 ambulatory Christina Nan Other [facility] Other Start: 02-18-2023 Office outpatient vi sit 15 minutes Christina Nan [facility] Start: 12-20-2022 End: 12-20-2022 ambulatory Christina Nan Other [facility] Other Start: 12-20-2022 Office outpatient vi sit 15 minutes Christina Nan [facility] Start: 12-01-2022 End: 12-01-2022 Patient encounter procedure Anna Hassan [facility] Start: 11-17-2022 End: 11-17-2022 Patient encounter procedure Anna Robert Hassan [facility] Start: 07-18-2022 End: 07-18-2022 Patient encounter procedure Anna Robert Hassan [facility] Start: 06-05-2022 Encounter for genera l adult medical examination without abnormal findings DR GERALD TAVARES [place] Start: 06-04-2022 End: 06-05-[address] HERB MEDEL Facility: Start: 06-04-2022 End: 06-05-2022 Encounter for general adult medical examination without abnormal findings DR GERALD TAVARES Facility:[facility] Start: 05-30-2022 End: 05-30-[address] LIZBETH TANG Facility:[facility] Start: 01-22-2022 End: 01-22-[address] GERALD TAVARES Facility:[facility] Start: 09-25-2021 End: 09-26-[address] DERIK LLOYD Facility:[facility] Start: 08-22-2021 (Procedure) Short Matteo Person [facility] Start: 08-22-2021 End: 08-22-2021 ambulatory Matteo Person Other [facility] Other Start: 08-12-2021 End: 08-12-2021 ambulatory Matteo Raza Other [facility] Other Start: 08-12-2021 Telephone encounter Matteo Raza [facility] Start: 07-30-2021 End: 07-30-2021 ambulatory Matteo Raza Other [facility] Other Start: 07-30-2021 Telephone encounter Matteo Raza [facility] Start: 07-26-2021 End: 07-26-2021 ambulatory Matteo Raza Other [facility] Other Start: 07-26-2021 Office outpatient vi sit 25 minutes Matteo Raza [facility] Start: 12-01-2018 End: 12-02-2018 Patient encounter procedure LIZBETH FLEMING Facility:[facility] Start: 03-16-2018 End: 03-17-2018 Patient encounter procedure Tahir ANN [facility] Start: 02-18-2018 End: 02-18-2018 Patient encounter procedure [facility] Start: 02-16-2018 End: 02-17-2018 Patient encounter procedure Tahir ANN [facility] Start: 02-15-2018 Patient encounter procedure [facility] Start: 02-15-2018 End: 02-15-2018 Patient encounter procedure [facility] Procedures Date Procedure Procedure Detail Performing Clinician Start: 11-16-2024 Follow-up visit Follow-up DANIEL GOLD Start: 07-13-2024 Follow-up visit Follow-up JEANETTE TIJERINA Start: 06-15-2024 AUDITORY FUNCTION TESTS Florence SOOD Work Phone: Start: 06-10-2024 Comprehensive metabolic panel Daniel burciaga MD Work Phone: Start: 05-24-2024 IGP,APTIMA HPV,AGE GDLN Zeynep Angle PA Work Phone: Start: 05-24-2024 Microscopic observation [Identifier] in Cervix by Cyto stain Daniel Gold MD Work Phone: Start: 07-14-2023 Esophagogastroduodenoscopy LYDIA MAAN Comment on above: asc Start: 05-12-2023 Colonoscopy Herb Lizy DO Work Phone: Start: 05-12-2023 Colonoscopy LYDIA CANNON Comment on above: Dr Carrasco Start: 05-12-2023 Esophagogastroduodenoscopic electrohydraulic lithotripsy of bezoar in stomach LYDIA CANNON Comment on above: Dr Carrasco Start: 04-27-2023 Microscopic observation [Identifier] in Cervix by Cyto stain Ben De Leon DO Work Phone: Start: 06-04-2022 Mammography Ben De Leon DO Work Phone: Start: 05-02-2021 Colonoscopy Ben De Leon DO Work Phone: Start: 05-02-2021 Colonoscopy Anna Hassan Start: 12-01-2018 ANESTH SURGERY OF SHOULDER EDISON PITROD A Start: 12-01-2018 Arthroscopy shoulder rotator cuff repair LIZBETH FLEMING Anxiety disorder (disorder) Anna Hassan Arthroscopy of knee Anna Nolan Cholecystectomy Anna yee Colonoscopy Anna Casonmetz Dilation and curettage of uterus Anna Hassan [employer] Esophagogastroduoden oscopy gastric outlet reduction Anna Hassan Excision of Bartholin's cyst Anna Hassan Gastroesophageal ref lux disease (disorder) Anna Hassan History of - migrain e (context-dependent category) Anna Hassan History of operative procedure on shoulder Anna Hassan History of operative procedure on shoulder Annasanto Hassan Comment on above: X7 Irregular periods (finding) Annasanto Hassan [employer] Labial cyst (disorder) Anna Hassan [employer] Laparoscopic cholecystectomy Anna Hassan [employer] 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) Annasanto Hassan [employer] Plan of Treatment Date Care Activity Detail Author Start: 12-22-2033 DTaP,Tdap and Td Vaccines (2 - Td or Tdap) DTaP,Tdap and Td Vaccines (2 - Td or Tdap) [facility] Start: 05-12-2033 Screening for malign ant neoplasm of colon [facility] Start: 05-02-2031 Screening for malign ant neoplasm of colon [facility] Start: 04-27-2028 Screening for malign ant neoplasm of cervix [facility] Start: 05-24-2027 Screening for malign ant neoplasm of cervix Pap Smear [facility] Start: 04-27-2026 Screening for malign ant neoplasm of cervix Pap Smear [facility] Start: 12-21-2025 Adult BMI Screening Adult BMI Screen ing [facility] Start: 12-21-2025 Tobacco Screening Tobacco Screening [facility] Start: 11-16-2025 Adult BMI Screening Adult BMI Screen ing [facility] Start: 07-13-2025 Adult BMI Screening Adult BMI Screen ing [facility] Start: 07-13-2025 Tobacco Screening Tobacco Screening [facility] Start: 06-29-2025 Adult BMI Screening Adult BMI Screen ing [facility] Start: 06-23-2025 Adult BMI Screening Adult BMI Screen ing [facility] Start: 06-23-2025 Tobacco Screening Tobacco Screening [facility] Start: 06-10-2025 Adult BMI Screening Adult BMI Screen ing [facility] Start: 06-10-2025 Tobacco Screening Tobacco Screening [facility] Start: 06-08-2025 Adult BMI Screening Adult BMI Screen ing [facility] Start: 12-21-2024 End: 12-21-2024 Patient encounter procedure 12/21/2024 1:30 PM EDT Office Visit Maggy Hernandez [facility] [[email or web address] - Medical Oncology [facility] [place] [phone] Jeanette Tijerina PA [address] [place] [address] Maggy Hernandez [facility] [[email or web address] - Medical Oncology Start: 12-19-2024 COVID-19 Vaccine ( season) COVID-19 Vaccine ( season) [facility] Start: 12-19-2024 Influenza vaccination N [facility] Start: 12-16-2024 End: 12-16-2024 Admission to same day surgery center 12/16/2024 10:45 AM EDT - 12/16/2024 12:00 PM EDT Surgery [facility] - Surgery [address] [place] [address] Daniel Gold MD [address] [facility] [place] [address] EXCISION LESION VULVA - WIDE LOCAL [facility] - Surgery Comment on above: EXCISION LESION VULV A - WIDE LOCAL Start: 12-16-2024 End: 12-16-2024 EXCISION LESION VULVA EXCISION LESION VULVA RECURRENT BARTHOLINS GLAND ABSCESS RIGHT 12/16/2024 10:45 AM EDT [facility] Start: 12-16-2024 Subsequent hospital visit by physician 12/16/2024 10:45 AM EDT Hospital Encounter [facility] Surgery [address] [place] [phone] [place] [address] [place] [address], [address] [facility] [place] [id number] [facility] Start: 12-16-2024 End: 12-16-2024 Admission to same day surgery center 12/16/2024 7:30 AM EDT - 12/16/2024 8:45 AM EDT Surgery [facility] [address] [place] [phone] [place] [address] [place] [address], [address] [place], [place] [id number] EXCISION LESION VULVA - WIDE LOCAL [facility] Surgery Comment on above: EXCISION LESION VULV A - WIDE LOCAL Start: 12-16-2024 End: 12-16-2024 EXCISION LESION VULVA EXCISION LESION VULVA RECURRENT BARTHOLINS GLAND ABSCESS RIGHT 12/16/2024 7:30 AM EDT [facility] Start: 12-16-2024 Subsequent hospital visit by physician 12/16/2024 7:30 AM EDT Hospital Encounter [facility] Surgery [address] [place] [phone] [place] [address] [place] [address], [address] [place], [place] [id number] [facility] Start: 11-18-2024 End: 11-18-2024 Admission to establishment 11/18/2024 3:45 PM EDT [facility] On [address] [address] [facility] On [facility] Start: 10-10-2024 End: 10-10-2024 Patient encounter procedure 10/10/2024 11:20 AM EDT Office Visit [facility] [address] [facility] [address] [phone] Herb Medel, DO [address] [address] Arrived [facility] Comment on above: Arrived Start: 08-16-2024 End: 08-16-2024 Patient encounter procedure 08/16/2024 3:30 PM EDT Office Visit [facility] [place] [address] [place] [address] Ubaldo Kaiser, DO [address] [place] [address] Arrived [facility] [place] Comment on above: Arrived Start: 08-16-2024 End: [...] 2:30 PM EDT Office Visit Maggy Hernandez [facility] [[email or web address] - Medical Oncology [address] [place] [address] Jeanette Tijerina PA [address] [place] [address] Maggy Hernandez [facility] [[email or web address] - Medical Oncology Start: 07-12-2024 End: 07-12-2024 Patient encounter procedure 07/12/2024 8:30 AM EDT Office Visit [facility] [address] [facility] [address] [phone] Herb Medel DO [address] [address] [facility] Start: 07-06-2024 End: 07-06-2024 Patient encounter procedure 07/06/2024 1:30 PM EDT Office Visit Maggy [place] [facility] [[email or web address] - Medical Oncology [address] [place] [address] Jeanette Tijerina PA [address] [place] [address] Maggy Romero [place] [facility] [[email or web address] - Medical Oncology Start: 06-29-2024 End: 06-29-2024 Patient encounter procedure 06/29/2024 3:00 PM EDT Office Visit Maggy Romero [place] [facility] [[email or web address] - Medical Oncology [address] [place] [address] Jeanette Tijerina PA [address] [place] [address] Maggy L [place] [facility] [[email or web address] - Medical Oncology Start: 06-23-2024 End: 06-23-2024 Admission to same day surgery center 06/23/2024 7:30 AM EST - 06/23/2024 9:15 AM EST Surgery [facility] - Surgery [facility] [place] [address] Daniel Gold MD [address] [facility] [facility] [place] [address] EXCISION CYST BARTHOLIN [96384 (CPT )] [facility] - Surgery Comment on above: EXCISION CYST BARTHO RUBI [15841 (CPT )] Start: 06-23-2024 End: 06-23-2024 Exc bartholins gland/cyst EXCISION CYST BARTHOLIN Abscess of Bartholin gland 06/23/2024 7:30 AM EST [facility] Start: 06-23-2024 Subsequent hospital visit by physician 06/23/2024 7:30 AM EST Hospital Encounter [facility] - Surgery [address] [facility] [address] Daniel Gold MD [address] [facility] [place] [address] [facility] - Surgery Start: 06-21-2024 End: 06-21-2024 Patient encounter procedure 06/21/2024 2:00 PM EST [facility] [address] [place] [phone] Ubaldo Kaiser, DO [address] [place] [address] [facility] [place] Start: 06-21-2024 End: 06-21-2026 US Heart Transthoracic Transthoracic Echo (TTE) Complete Echocardiography Routine Pulsatile tinnitus Expected: 06/21/2024 (Approximate), Expires: 06/21/2026 [facility] Work Phone: Comment on above: Expected: 06/21/2024 (Approximate), Expires: 06/21/2026 Start: 06-15-2024 End: 06-15-2024 Patient encounter procedure 06/15/2024 1:45 PM EST Office Visit [facility] [address] [place] [address] Florence Howard, AUD [address] [place] [address] Arrived [facility] Comment on above: Arrived Start: 06-13-2024 End: 06-13-2024 Patient encounter procedure 06/13/2024 10:45 AM EST Office Visit [facility] [address] [place] [phone] Florence Howard S, AUD [address] [place] [address] [facility] Start: 06-10-2024 End: 06-10-2024 Patient encounter procedure 06/10/2024 10:30 AM EST [facility] On [address] [address] [facility] On [facility] Start: 06-09-2024 End: 06-09-2025 XR Chest PA and Lateral X-ray chest 2 views Imaging Routine Bartholin cyst Preop testing Expected: 06/09/2024, Expires: 06/09/2025 [facility] Comment on above: Expected: 06/09/2024 , Expires: 06/09/2025 Start: 05-24-2024 End: 07-22-2025 MG Breast - bilateral Screening Bilateral screening mammogram Imaging Routine Encounter for screening mammogram for malignant neoplasm of breast Expected: 05/24/2024, Expires: 07/22/2025 [facility] Work Phone: Comment on above: Expected: 05/24/2024 , Expires: 07/22/2025 Start: 05-24-2024 End: 05-24-2024 Patient encounter procedure 05/24/2024 1:50 PM EST Office Visit [facility] [address] [facility] [place] [address] Zeynep Barbour PA [address] [place], [place] [address] Arrived [facility] Comment on above: Arrived Start: 05-02-2024 End: 05-02-2024 Patient encounter procedure 05/02/2024 9:00 AM EST Office Visit [facility] [address] [facility] [place] [address] Herb Medel DO [address] [place] [address] [facility] Start: 12-20-2023 COVID-19 Vaccine ( season) COVID-19 Vaccine ( season) [facility] Start: 12-20-2023 Influenza vaccination N [facility] Start: 06-04-2023 Screening for malign ant neoplasm of breast Mammogram [facility] Start: 10-20-2019 Administration of varicella zoster vaccine Zoster (Shingles) Vaccine (1 of 2) [facility] Start: 10-20-1987 Adult BMI Follow Up Plan Adult BMI F ollow Up Plan [facility] Start: 1981 Depression Screening Depression Scre ening [facility] Start: 1981 Tobacco Screening Tobacco Screening [facility] Start: 1969 Screening for malign ant neoplasm of colon [facility] End: 06-09-2025 CBC W Auto Differential panel - Blood CBC with auto diff Lab Routine Bartholin cyst Preop testing 1 Occurrences starting 06/09/2024 until 06/09/2025 [employer] Work Phone: Comment on above: 1 Occurrences starti ng 06/09/2024 until 06/09/2025 End: 11-17-2025 CBC W Auto Differential panel - Blood CBC with auto diff Lab Routine Bartholin cyst Preop testing 1 Occurrences starting 11/17/2024 until 11/17/2025 [employer] Work Phone: Comment on above: 1 Occurrences starti ng 11/17/2024 until 11/17/2025 End: 06-09-2025 Comprehensive metabolic 2000 panel - Serum or Plasma Comprehensive metabolic panel Lab Routine Bartholin cyst Preop testing 1 Occurrences starting 06/09/2024 until 06/09/2025 [facility] [employer] Comment on above: 1 Occurrences starti ng 06/09/2024 until 06/09/2025 End: 11-17-2025 Comprehensive metabolic 2000 panel - Serum or Plasma Comprehensive metabolic panel Lab Routine Bartholin cyst Preop testing 1 Occurrences starting 11/17/2024 until 11/17/2025 [facility] Comment on above: 1 Occurrences starti ng 11/17/2024 until 11/17/2025 End: 06-09-2025 ECG 12 lead ECG 12 lead ECG Routine Bartholin cyst Preop testing 1 Occurrences starting 06/09/2024 until 06/09/2025 [facility] [employer] [facility] Comment on above: 1 Occurrences starti ng 06/09/2024 until 06/09/2025 THIN PREP TIS PAP AN D HR HPV DNA THIN PREP TIS PAP AND HR HPV DNA Pathology and Cytology Routine Well woman exam with routine gynecological exam Ordered: 05/24/2024 [facility] Comment on above: Ordered: 05/24/2024 [facility] Immunizations Immunization Date Immunization Notes Care Provider Fa cility 12-23-2023 tetanus toxoid, reduced diphtheria toxoid, and acellular pertussis vaccine, adsorbed Ben De Leon DO Work Phone: [facility] 03-18-2021 SARS-CoV-2 (COVID-19 ) mRNA BNT-162b2 vax Anna Sonya [facility] Comment on above: Result Comment: 2022: [id number] 05-14-2012 hepatitis A vaccine, adult dosage Annasanto CasonSonya [facility] 05-14-2012 hepatitis B vaccine, pediatric or pediatric/adolescent dosage Anna Sonya [facility] 04-05-2009 novel [id number], preservative-free, injectable Ubaldo Kaiser DO Work Phone: [facility] 04-05-2009 influenza virus vaccine, unspecified formulation Daniel Gold MD Work Phone: [facility] [employer] NEGATED: Highlighted row has not occurred!05-18-2023 influenza virus vaccine, unspecified formulation Anna Hassan [facility] NEGATED: Highlighted row has not occurred!04-24-2023 influenza virus vaccine, unspecified formulation Matthew Carrasco [facility] NEGATED: Highlighted row has not occurred!02-27-2021 influenza virus vaccine, unspecified formulation Anna Hassan [facility] Payers Date Payer Category Payer Private Health Insurance [id number] 2022 [employer] [facility] BCBS [id number] 2021 [facility] Managed Care - O [id number]. 2.7.9.567828.505.315 2018 Unknown [id number] 1969 Unknown [id number] 2.16840.1.828019.3.579. 2.647 1969 Unknown [id number] 2.16840.1.424601.3.579. 2.593 1969 Unknown [id number] 2.16.840.1.600775.3.579. 2.593 1969 Unknown [id number] 2.16.840.1.330722.3.579. 2.593 1969 Unknown [id number] 2.16.840.1.516183.3.579. 2.593 1969 Unknown [id number] 2.16.840.1.489950.3.579. 2.593 1969 Unknown [id number] 2.16.840.1.350613.3.579. 2.128 1969 Unknown [id number] 2.16.840.1.466683.3.579. 2.1285 1969 Unknown [id number] 2.16.840.1.565265.3.579. 2.1258 1969 Unknown [id number] 2.16.840.1.798941.3.579. 2.1258 1969 Unknown [id number] 2.16.840.1.313702.3.579. 2.1258 1969 Unknown [id number] 2.840.1.152554.3.579. 2.1258 1969 Unknown [id number] 2.840.1.783883.3.579. 2.1258 1969 Unknown [id number] 2.840.1.639050.3.579. 2.1258 1969 Unknown [id number] 2.840.1.628766.3.579. 2. 1969 Unknown [id number] 2.840.1.601391.3.579. 2. 1969 Unknown [id number] 2.16840.1.441722.3.579. 2. 1969 Unknown [id number] 2.840.1.440511.3.579. 2.1285 1969 Unknown [id number] 2.840.1.685288.3.579. 2.1285 1969 Unknown [id number] 2.16840.1.749447.3.579. 2.1285 1969 Unknown [id number] 2.16.840.1.864040.3.579. 2.1285 1969 Unknown [id number] 2.16840.1.305243.3.579. 2.1285 1969 Unknown [id number] 2.16.840.1.610931.3.579. 2.1286 1969 Unknown [id number] 2.16.840.1.508670.3.579. 2.1286 1969 Unknown [id number] 2.16.840.1.349629.3.579. 2.1286 1969 Unknown [id number] 2.16.840.1.644288.3.579. 2.1286 1969 Unknown [id number] 2.16.840.1.505152.3.579. 2.1286 1969 Unknown [id number] 2.16.840.1.503576.3.579. 2.1286 1969 Unknown [id number] 2.16.840.1.876250.3.579. 2.1286 1959 [facility] [id number] 2.16.840.1.754746.19 Self-pay Self Pay [id number] Unknown [id number] Social History Date Type Detail Facility Start: 04-27-2023 End: 12-05-2024 Sex Assigned At [facility] Start: 05-02-2021 End: 06-10-2024 Tobacco smoking status Ex-smoker (finding) [facility] Comment on above: denies Tobacco smoking status Never [facility] Start: 1970 Sex Assigned At Female F [facility] Start: 11-15-2022 Tobacco smoking stat us NHIS Never smoked tobacco [facility] Start: 12-23-2023 End: 10-10-2024 Alcoholic beverage intake Lifetime non-drinker (finding) [facility] Start: 04-27-2023 End: 12-05-2024 History of Social function [facility] Start: 11-15-2022 Alcohol Comment caffeine: 1-2 cups/d ay [facility] Start: 11-10-2022 Gender identity Identifies as female gender (finding) [facility] Start: 04-20-1985 End: 04-20-2015 History of tobacco use Current smoker [facility] Start: 04-20-1985 End: 04-20-2015 History of tobacco use Cigarette Smoker [facility] Start: 10-04-2021 End: 06-10-2024 Tobacco use and exposure Smokeless tobacco non-user [facility] Start: 10-04-2021 End: 07-13-2024 Alcoholic beverage intake Ex-drinker (finding) [facility] Start: 1970 Sex assigned at Not on file P [facility] Start: 08-01-2009 End: 11-23-2014 Sex Female (finding) [facility] History of tobacco use Passive smoker [facility] Sexual Orientation [facility] Start: 12-05-2024 End: 12-21-2024 Alcoholic beverage intake Current drinker of alcohol (finding) [facility] Goals Date Patient Goal Desired Activity /State Personal health goal Functional Status Date Assessment Result Facility 12-29-2023 Functional Status N/A [facility] 08-04-2023 Functional Status N/A [facility] 05-19-2023 Functional Status N/A [facility] 11-17-2022 Functional Status N/A [facility] Clinical Notes 07-26-2021 to 12-21-2024 [facility] Posada - 12/21/2024 1:30 PM EDTPre-Procedure Instructions - Ayala Han RN - 11/18/2024 3:45 PM EDTPre-Procedure Instructions - Ayala Han RN - 11/18/2024 3:45 PM EDT Note Date & Type Note Facility 12-21-2024 History of Presen t illness Narrative Subjective: Tiera Wakefield is a 54 y.o. female who is s/p a WLE of the vulva on 12/16/24. Pathology: benign, bartholin's gland cyst She is doing well post-operatively. Normal bowel and bladder habits. No fevers, chills, N/V, N/T, SOB, vaginal bleeding. Patient was originally a consultation from Dr. 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 Oncology History No history exists. Tiera Wakefield [...] No Past Surgical History: Procedure Laterality Date APPENDECTOMY 2022 CHOLECYSTECTOMY 2013 COLONOSCOPY x 2 ESOPHAGOGASTRODUODENOSCOPY EXCISION CYST BARTHOLIN Right 06/23/2024 Performed by Daniel Gold MD at [facility] EXCISION LESION VULVA - WIDE LOCAL N/A 12/16/2024 Performed by Daniel Gold MD at [facility] KNEE SURGERY Left 2008 meniscus SHOULDER SURGERY Left 7 total shoulder surgery, [id number] Past Medical History: Diagnosis Date Asthma Atrial fibrillation (CMS-HCC) Colon polyp COVID 04/2024 Depression GERD (gastroesophageal reflux disease) Visual impairment glasses Family History Problem Relation Age of Onset Ovarian cancer Mother Aneurysm Father Atrial fibrillation Father Anesthesia problems Neg Hx Social History Socioeconomic History Marital status: Tobacco Use Smoking status: Former Current packs/day: 0.00 Average packs/day: 1 pack/day for 30.0 years (30.0 ttl pk-yrs) Types: Cigarettes Start date: 1985 Quit date: 2016 Years since quittin.6 Passive exposure: Current Smokeless tobacco: Never Vaping Use Vaping status: Never Used Substance and Sexual Activity Alcohol use: Yes Alcohol/week: 1.0 standard drink of alcohol Types: 1 Shots of liquor per week Drug use: Never Sexual activity: Defer Social Drivers of Health Food Insecurity: No Food Insecurity (12/05/2024) Hunger Screening Food Insecurity - Worry: Never True Food Insecurity - Inability: Never True Review of Symptoms: Pertinent items are noted in HPI. Objective: BP 129/81 Pulse 84 Resp 16 Ht 160 cm (5' 2.99 ) Wt 73.5 kg (162 lb) SpO2 97% BMI 28.70 kg/m ECO- Symptomatic; fully ambulatory General appearance: alert, appears stated age and cooperative Head: Normocephalic, without obvious abnormality, atraumatic Lungs: clear to auscultation bilaterally Heart: regular rate and rhythm, S1, S2 normal, no murmur, click, rub or gallop Abdomen: soft, nontender/nondistended Pelvic: Vulva is healing well. Suture present at the incision along the right labia minora Extremities: extremities normal, atraumatic, no cyanosis or edema Pulses: 2+ and symmetric Skin: Skin color, texture, turgor normal. No rashes or lesions Lymph nodes: Cervical, supraclavicular, and axillary nodes normal. Neurologic: Grossly normal Labs: Lab Results Component Value Date WBC 4.2 12/12/2024 HGB 14.5 12/12/2024 HCT 42.1 12/12/2024 MCV 87 12/12/2024 PLT 259 12/12/2024 Lab Results Component Value Date GLU 85 12/12/2024 CALCIUM 9.2 12/12/2024 SODIUM 139 12/12/2024 K 4.0 12/12/2024 CO2 31 12/12/2024 BUN 10 12/12/2024 CREATININE 0.75 12/12/2024 No results found for: CA125 Assessment: Patient is diagnosed with Patient Active Problem List Diagnosis Bartholin cyst Plan: Post op care - she is progressing well. We discussed the postop lifting and pelvic restrictions over the next several weeks. Follow-up in 4 weeks for further post op care. Reviewed pathology which was benign, consistent with recurrent bartholin's gland cyst. *The patient has a documented plan of care to address pain. All questions were answered to the patient's satisfaction. She is agreeable to this plan of care. *This note was completed using a voice ob/gyn nurse system. Every effort was made to ensure accuracy. However, inadvertent computerized ob/gyn nurse errors may be present. 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 female without prior cardiac history. No history of hypertension, hyperlipidemia or diabetes mellitus. She had prior history of possible asthma diagnosed after she quit smoking, COVID infection, and prior history of smoking 1 pack/day since she was 13-year-old and she quit 10 years ago. On 09/23/2024 she went to the emergency room because she had palpitations which lasted about 1 hour, she felt anxious with that but no other symptoms such as chest pain or shortness of breath or dizziness. Prior to that she used to have short lasting palpitations every couple days however it has been becoming more frequent. She denies any chest discomfort at rest or with exertion. She admits occasional shortness of breath with overexertion. She denies orthopnea or paroxysmal nocturnal dyspnea or dizziness or syncope or near syncope. She admits mild edema of the lower extremities towards the end of the day. EKG on arrival to the emergency room showed A-fib with a mildly fast ventricular rate however she converted spontaneously to sinus rhythm and she has been doing well since then She admits snoring. She never been told that she stops breathing during the night. She is not sleepy during the daytime. She drinks 1 cup of coffee a day and she drinks a lot of water. 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 As mentioned above she used to be a smoker 1 pack/day since she was 13-year-old however she quit 10 years ago. She drinks alcohol occasionally. She denies any illicit drugs Regarding family history her father had atrial fibrillation and probably coronary artery disease Cardiology ROS: GENERAL: Denies fever, chills, night sweats, weight loss. HEENT: Denies changes in vision, photophobia, changes in hearing, epistaxis, oral bleeding. CARDIOVASCULAR: As described above in the history. RESPIRATORY: Reports shortness of breath with overexertion. Denies coughing, wheezing GI: Denies abdominal pain, nausea/vomiting, heartburn, melena/hematochezia. RENAL: Denies dysuria, hematuria, flank pain. MSK: Denies muscle weakness/pain, arthralgias/joint pain. NEUROLOGIC: Denies LOC, weakness, numbness, headaches. SKIN: Denies abnormal rashes or bleeding. PSYCH: Denies significant anxiety, depression, sleep disturbances. Past Medical History She has a past medical history of Atrial fib/flutter, transient (CMS/HCC) and Paroxysmal A-fib (CMS/HCC). Surgical History She has a past surgical history that includes Shoulder surgery; Cholecystectomy; Esophagogastroduodenoscopy; and Colonoscopy. Social History She reports that she has quit smoking. Her smoking use included cigarettes. She has never used smokeless tobacco. She reports current alcohol use. She reports that she does not use drugs. Family History Family History[1] Allergies Aspirin Medications Current Medications[2] Last Recorded Vitals Visit Vitals BP 122/82 (BP Location: Right arm, Patient Position: Sitting) Pulse 69 Ht 1.6 m (5' 3 ) Wt 73.9 kg (163 lb) SpO2 96% BMI 28.87 kg/m??? Smoking Status Former BSA 1.81 m??? Physical Examination: GENERAL: alert and oriented x3, well developed, in no acute distress. HEAD: atraumatic, normocephalic. EYES: BRIGIDA, EOMI. NECK: trachea midline, no JVD present, no carotid bruits present. CARDIAC: S1, S2 present. RRR. No murmur, rubs, or gallops. RESPIRATORY: CTAB, no increased effort of breathing, no rales, rhonchi, or wheezing. ABDOMEN: soft, nontender, nondistended. EXTREMITIES: no lower extremity edema, peripheral pulses are 2+ bilaterally. No rash/skin discoloration present. NEURO: strength/sensation equal and symmetric in bilateral upper and lower extremities. PSYCH: appropriate mood, affect, and judgement. Labs: 09/23/2024 White blood count 6.5, hemoglobin 15.7, hematocrit 44.6, platelets 280 Sodium 142, potassium 3.2, BUN 16, creatinine 0.81, GFR above 6, glucose 102, calcium 9.4 Total bilirubin 0.6, AST 24, ALT 42, alk phos 84, total protein 7.8, albumin 4.1 Triglyceride 91, cholesterol 166, LDL 96.8, HDL 51 TSH 2.516 Last Images: EKG today 11/24/2024 showed normal sinus rhythm, heart rate 66 bpm, nonspecific T wave abnormalities EKG 09/23/2024 at 426 showed normal sinus rhythm, normal EKG EKG 09/23/2024 at 415 showed atrial fibrillation with mildly rapid ventricular rate 115 bpm, mild ST depression EKG 08/29/2024 mild sinus bradycardia, otherwise normal EKG Echo 10/04/2024 at [facility] Assessment and Plan: 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 [facility] 11-18-2024 Instructions Formatting of th is note might be different from the original. Your surgery/procedure is scheduled at [facility] on 12/16/24 at 10:45 am Arrival Time 8:45 am [facility] Address: [address] [place] [address], [facility] in the Emergency Center Parking lot. Report to the java front end web developer in the Emergency/Surgery Registration lobby of the hospital. Notify your SURGEON if you develop any illness such as a cold, cough, fever, sore throat, vomiting or are hospitalized between now and your surgery. Please call Pre-Admission Clinic at [phone] if you have any questions prior to surgery. For questions the morning of surgery, call the Pre-op Department at [phone]. Medication Instructions (Do not stop your medications without consulting the prescribing physician). Take the following medications the morning of surgery with a sip of water: Nexium Take inhalers as prescribed the morning of [...] weekly, hold 1 week prior to surgery: Jefunjaro . Blood thinners: Please contact your prescribing [...] all solids by midnight, You may have a smalll amount of clear liquids up to 2 hours before surgery, unless otherwise instructed by your surgeon Clear liquids are: water, sports drinks such as Gatorade or G2, or apple juice. You may NOT have: tube feedings, dairy products, alcoholic beverages, orange juice, or any liquids with solids or pulp in it If applicable, shower again with CHG soap the morning of your surgery. What do I need to do to prepare for surgery? If you will be going home the same day as your surgery, arrange for an adult over [address] Riding in a bus or taxi by yourself is not permitted. You should not smoke or drink alcohol 24 hours before your surgery. Alcohol thins the blood and may cause bleeding problems during surgery Smoking increases the risk of breathing problems after surgery. It also increases your risk for infection, and may delay healing. Do not use lotions, creams, powders, perfume, make up, cologne or after-shaves day of surgery. Remove ALL jewelry including wedding rings, body piercings, hair extensions that contain metal, nail indonesian, make-up, and contact lens. You may brush your teeth the morning of surgery, but do not swallow the water. Wear your dentures and partial plates to the hospital (no adhesive). Shower the night before your procedure. If applicable, use the CHG (chlorhexidine gluconate) soap or wipes. Please place clean linens on your bed after showering. Do not allow your pets in your bed. Please be advised, [facility] has transitioned to a cashless payment system. What should I bring to the hospital? Eyeglass or contact lens case If you will be spending the night, please bring personal care items and leave them in the car until you are taken to your room after surgery. Leave ALL valuables at home. If any of these instructions conflict with those you received from the surgeon, please seek clarification from [...] hours during the day and early evening. Surgical Site Infection Prevention What is a Surgical Site Infection (SSI)? Infection can happen to the area of the body where surgery is done. This is called a surgical site infection (SSI). A SSI does not happen very often. What are some of the things that hospitals are doing to prevent SSIs? Soap and water or alcohol hand rub are used before and after caring for each patient. Special soap is used to clean surgery workers [...] Use the soap as you were told. Place clean sheets on your bed the night before surgery and do not allow your pets in your bed. If you smoke or vape, stop or cut down. This creates a stress response in your body that increases inflammation, constricts blood vessels and deprives your tissues of oxygen. After surgery, this stress response disrupts the travel of oxygen, nutrients, and blood to your surgical site, interfering with the wound healing process. It also decreases the ability of your cells to fight infection. Ask your doctor about ways to quit. If you have high blood sugars or diabetes please talk with your doctor about having healthy blood sugar levels to promote healing. Do not shave near where you will have surgery. Shaving can irritate the skin and make it easier to get and infection. After surgery: Be sure that the doctors and nurses clean their hands before and after touching you. Be sure your family and friends clean their hands before and after visiting you. Do not be afraid to remind them. Always wash your hands before touching your incisional area. * Care for your wound at home as told by your doctor or nurse * Call your doctor right away if you have fever, redness, increased pain, or drainage at the surgery site. Can SSIs be treated? Antibiotics are used to treat SSI. Some patients may need another surgery to treat the infection. The doctor will discuss treatment options with you. Further questions? Contact the doctor, nurse or the Infection Prevention and Control department if you have any questions. PATIENT RIGHTS AND RESPONSIBILITIES As a patient at [facility], you have the right to: Receive medical care and be informed of who is taking care of you Be treated with dignity and respect Have a family member/sales representative livestock of choice and your physician notified of your admission Receive information and actively participate in decisions about your care and treatment Refuse care, treatment and services Decide who may provide your support and speak for you Access adventist and spiritual services Participate in ethical issues [...] charges and payment methods Patient/patient sales representative livestock responsibilities are to: Provide information about health status to facilitate care, treatment and services Follow the treatment, plan, keep appointments and speak up when you do not understand the plan Respect the rights of other patients and healthcare personnel Follow organizational rules and regulations that support quality care and a safe environment Fulfill financial obligations as promptly as possible [facility] 11-18-2024 Miscellaneous Notes Your surgery/procedure is scheduled at [facility] on 12/16/24 at 10:45 am Arrival Time 8:45 am [facility] Address: [address] [place] [address], [address] [place] [address] in the Emergency Center Parking lot. Report to the java front end web developer in the Emergency/Surgery Registration lobby of the hospital. Notify your SURGEON if you develop any illness such as a cold, cough, fever, sore throat, vomiting or are hospitalized between now and your surgery. Please call Pre-Admission Clinic at [phone] if you have any questions prior to surgery. For questions the morning of surgery, call the Pre-op Department at [phone]. Medication Instructions (Do not stop your medications without consulting the prescribing physician). Take the following medications the morning of surgery with a sip of water: Nexium Take inhalers as prescribed the morning of [...] all solids by midnight, You may have a smalll amount of clear liquids up to 2 hours before surgery, unless otherwise instructed by your surgeon Clear liquids are: water, sports drinks such as Gatorade or G2, or apple juice. You may NOT have: tube feedings, dairy products, alcoholic beverages, orange juice, or any liquids with solids or pulp in it If applicable, shower again with CHG soap the morning of your surgery. What do I need to do to prepare for surgery? If you will be going home the same day as your surgery, arrange for an adult over [address] Riding in a bus or taxi by yourself is not permitted. You should not smoke or drink alcohol 24 hours before your surgery. Alcohol thins the blood and may cause bleeding problems during surgery Smoking increases the risk of breathing problems after surgery. It also increases your risk for infection, and may delay healing. Do not use lotions, creams, powders, perfume, make up, cologne or after-shaves day of surgery. Remove ALL jewelry including wedding rings, body piercings, hair extensions that contain metal, nail indonesian, make-up, and contact lens. You may brush your teeth the morning of surgery, but do not swallow the water. Wear your dentures and partial plates to the hospital (no adhesive). Shower the night before your procedure. If applicable, use the CHG (chlorhexidine gluconate) soap or wipes. Please place clean linens on your bed after showering. Do not allow your pets in your bed. Please be advised, [facility] has transitioned to a cashless payment system. What should I bring to the hospital? Eyeglass or contact lens case If you will be spending the night, please bring personal care items and leave them in the car until you are taken to your room after surgery. Leave ALL valuables at home. If any of these instructions conflict with those you received from the surgeon, please seek clarification from [...] hours during the day and early evening. Surgical Site Infection Prevention What is a Surgical Site Infection (SSI)? Infection can happen to the area of the body where surgery is done. This is called a surgical site infection (SSI). A SSI does not happen very often. What are some of the things that hospitals are doing to prevent SSIs? Soap and water or alcohol hand rub are used before and after caring for each patient. Special soap is used to clean surgery workers [...] Use the soap as you were told. Place clean sheets on your bed the night before surgery and do not allow your pets in your bed. If you smoke or vape, stop or cut down. This creates a stress response in your body that increases inflammation, constricts blood vessels and deprives your tissues of oxygen. After surgery, this stress response disrupts the travel of oxygen, nutrients, and blood to your surgical site, interfering with the wound healing process. It also decreases the ability of your cells to fight infection. Ask your doctor about ways to quit. If you have high blood sugars or diabetes please talk with your doctor about having healthy blood sugar levels to promote healing. Do not shave near where you will have surgery. Shaving can irritate the skin and make it easier to get and infection. After surgery: Be sure that the doctors and nurses clean their hands before and after touching you. Be sure your family and friends clean their hands before and after visiting you. Do not be afraid to remind them. Always wash your hands before touching your incisional area. * Care for your wound at home as told by your doctor or nurse * Call your doctor right away if you have fever, redness, increased pain, or drainage at the surgery site. Can SSIs be treated? Antibiotics are used to treat SSI. Some patients may need another surgery to treat the infection. The doctor will discuss treatment options with you. Further questions? Contact the doctor, nurse or the Infection Prevention and Control department if you have any questions. PATIENT RIGHTS AND RESPONSIBILITIES As a patient at [facility], you have the right to: Receive medical care and be informed of who is taking care of you Be treated with dignity and respect Have a family member/sales representative livestock of choice and your physician notified of your admission Receive information and actively participate in decisions about your care and treatment Refuse care, treatment and services Decide who may provide your support and speak for you Access adventist and spiritual services Participate in ethical issues [...] charges and payment methods Patient/patient sales representative livestock responsibilities are to: Provide information about health status to facilitate care, treatment and services Follow the treatment, plan, keep appointments and speak up when you do not understand the plan Respect the rights of other patients and healthcare personnel Follow organizational rules and regulations that support quality care and a safe environment Fulfill financial obligations as promptly as possible documented in this encounter [facility] 11-16-2024 History of Presen t illness Narrative Subjective: Tiera is a 54 y.o. female [...] 06/23/2024 Performed by Daniel Gold MD at [facility] SURGERY KNEE SURGERY Left 2008 meniscus SHOULDER SURGERY Left 7 total shoulder surgery, [id number] Past Medical History: Diagnosis Date Asthma Colon [...] kg (163 lb 6.4 oz) BMI 28.95 kg/m ECO- Asymptomatic General appearance: alert, appears [...] Soft, nontender, nondistended, no rebound or guarding. Pelvic-car wash supervisor present: cervix normal in appearance, external genitalia- [...] procedures Referring and communicating with other health dog day care attendant (not separately reported) Documenting clinical information in the electronic or other health record Daniel Gold MD documented in this encounter [facility] 10-10-2024 History of Presen t illness Narrative Reason for Appointment: Patient ID: Tiera Wakefield is a 53 y.o. female who presents for vaginal issues Patient presents today for Consult appointment. MEDICATIONS Current Outpatient Medications Medication Instructions citalopram (CeleXA) 20 MG tablet Every 24 hours Eliquis 5 mg, 2 times daily esomeprazole (NexIUM) [address] capsule 1 capsule, Every 24 hours ALLERGIES No Known Allergies PROBLEMS Active Ambulatory Problems Diagnosis Date Noted No Active Ambulatory Problems Resolved Ambulatory Problems Diagnosis Date Noted Acid reflux 06/20/2024 Acute gastric ulcer 03/10/2014 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/20/2024 Ellison's esophagus 06/20/2024 Bartholin cyst 06/08/2024 Bursitis of shoulder 06/30/2016 Colon polyp 06/20/2024 Dysphagia 06/20/2024 Irregular Z line of esophagus 06/20/2024 Full thickness rotator cuff tear 03/12/2014 History of colon polyps 06/20/2024 History of diverticulitis 06/20/2024 Irregular bowel habits 06/20/2024 Lumbar disc herniation 02/16/2018 Lumbosacral disc herniation 06/20/2024 Osteoarthritis 06/20/2024 RLQ abdominal pain 06/20/2024 Schatzki's ring 06/20/2024 Cervical spondylosis with radiculopathy 06/20/2024 Upper abdominal pain 06/20/2024 Past Medical History: Diagnosis Date Asthma (HCC) Atypical nevi History of repair of ACL 2006 History of shoulder surgery HISTORY PAST MEDICAL HISTORY SOCIAL HISTORY Past Medical History: Diagnosis Date Acid reflux 06/20/2024 Acute gastric ulcer 03/10/2014 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/20/2024 726.0 LEFT [facility] [id number] DOI 07/29/12 Asthma (HCC) Atypical nevi Ellison's esophagus 06/20/2024 Bartholin cyst 06/08/2024 Bursitis of shoulder 06/30/2016 Cervical spondylosis with radiculopathy 06/20/2024 Colon polyp 06/20/2024 Dysphagia 06/20/2024 Full thickness rotator cuff tear 03/12/2014 840.6 LEFT, RECURRENT [facility] [id number] DOI 07/29/12 History of colon polyps 06/20/2024 History of diverticulitis 06/20/2024 History of repair of ACL 2006 History of shoulder surgery Irregular bowel habits 06/20/2024 Irregular Z line of esophagus 06/20/2024 Lumbar disc herniation 02/16/2018 Added automatically from request for surgery [id number] Lumbosacral disc herniation 06/20/2024 Osteoarthritis 06/20/2024 RLQ abdominal pain 06/20/2024 Schatzki's ring 06/20/2024 Upper abdominal pain 06/20/2024 Social History Tobacco Use Smoking status: Former Types: Cigarettes Smokeless tobacco: Not on file Substance Use [...] Respiratory: Negative. Cardiovascular: Negative. Gastrointestinal: Negative. Genitourinary: Positive for pelvic pain and vaginal pain. Musculoskeletal: Negative. Skin: Negative. Neurological: Negative. All other systems reviewed and are negative. Hematological: Negative. Endocrine: Negative. Allergic/Immunologic: Negative. OBJECTIVE Objective: Physical Exam Constitutional: Appearance: Normal appearance. She is well-developed. Genitourinary: Vulva normal. Cardiovascular: Rate and Rhythm: Normal rate and regular rhythm. Pulmonary: Effort: Pulmonary effort is normal. Breath sounds: Normal breath sounds. Abdominal: General: Bowel sounds are normal. There is no distension. Palpations: Abdomen is soft. Tenderness: There is no abdominal tenderness. There is no guarding or rebound. Musculoskeletal: General: No swelling. Normal range of motion. Right lower leg: No edema. Left lower leg: No edema. Neurological: Mental Status: She is alert and oriented to person, place, and time. Skin: General: Skin is warm and dry. Psychiatric: Mood and Affect: Mood normal. Behavior: Behavior normal. Vitals and nursing note reviewed. Exam conducted with a car wash supervisor present. Vitals: Estimated body mass index is 28.72 kg/m as calculated from the following: Height as of 25: 5' 3 . Weight as of this encounter: 162 lb 1.9 oz. BP: 120/72 No LMP recorded. Patient is postmenopausal. ASSESSMENT & PLAN ICD-10-CM 1. Bartholin's gland cyst N75.0 Patient presents today for assessment of area vaginally where bartholin gland was removed, which patient voiced keeps opening. Patient is having vaginal atrophy and will need to use Estradiol for 4 weeks and then twice weekly thereafter. Both prescriptions sent to patients pharmacy, with specific instructions that one prescription is for maintenance dosage after initial prescription for 1 month. Patient will schedule follow up appointment telehealth in 4 weeks to see if any improvement. Documented by Kasey Whittington LPN on behalf of: Herb Medel DO documented in this encounter [facility] 10-04-2024 Note Echocardiology Procedure Exam Date/Time Accession # Ordering Dr. [facility] Transthoracic 10/04/2024 14:54 EDT [id number] LYDIA CANNON Complete CPT code 19549 [id number] Reason for Exam (Echo Transthoracic Complete) PAF I48.0 Report [facility] [address] [place] [address] Adult Echocardiogram Report Name: TIERA WAKEFIELD Study Date: 10/04/2024 02:13 PM BP: 131/73 mmHg Patient Location: FT CAR F HR: 60 : 1970 Gender: Female Height: 63 in Age: 53 yrs Ethnicity: WHT Weight: 165 lb Reason For Study: PAF I48.0 BSA: 1.8 m2 History: No cardiac history per patient Performed By: Rani Gilliam RDCS Interpretation Summary Left ventricular systolic function is normal. Grade I diastolic dysfunction, (abnormal relaxation pattern). There is mild tricuspid regurgitation. The right ventricular systolic function is normal. The right ventricular wall motion is normal. Procedure A complete two-dimensional transthoracic echocardiogram was performed (2D, M-mode, spectral and color flow Doppler). Left Ventricle The left ventricle is normal in size. There is normal left ventricular wall thickness. Ejection Fraction = 55-60%. Left ventricular systolic function is normal. The left ventricular wall motion is normal. Grade I diastolic dysfunction, (abnormal relaxation pattern). Left Atrium The left atrial size is normal. Right Atrium Right atrial size is normal. Right Ventricle Echocardiology Report The right ventricular systolic function is normal. The right ventricle is normal size. The right ventricular wall motion is normal. Aortic Valve The trileaflet aortic valve opening is normal. No aortic regurgitation. Mitral Valve The mitral valve is normal in structure and function. There is Trace mitral regurgitation. Tricuspid Valve Structurally normal tricuspid valve. There is mild tricuspid regurgitation. Pulmonic Valve The pulmonic valve is normal. Arteries The aortic root is normal in size. Venous The inferior vena cava is normal in size, and collapses normally with respiration. Effusion There is no pericardial effusion. There is no pleural effusion noted on this exam. MMode/2D Measurements & Calculations RVDd: 3.4 cm LVIDd: 4.1 cm FS: 42.7 % Ao root diam: 2.8 cm IVSd: 0.93 cm LVIDs: 2.3 cm EDV(Teich): 73.8 ml LVPWd: 0.78 cm ESV(Teich): 19.0 ml Ao root area: 6.1 cm2 EF(Teich): 74.3 % LA dimension: 3.5 cm asc Aorta Diam: 3.4 cm LVOT diam: 2.0 cm LVLd ap4: 7.7 cm EDV(MOD-sp2): 77.8 ml LVOT area: 3.2 cm2 EDV(MOD-sp4): 63.0 ml ESV(MOD-sp2): 23.7 ml LVLs ap4: 6.4 cm EF(MOD-sp2): 69.5 % ESV(MOD-sp4): 22.2 ml EF(MOD-sp4): 64.8 % SV(MOD-sp4): 40.8 ml TAPSE: 2.2 cm IVC Diam: 1.2 cm RVIDd/LVIDd: 0.83 EF (MOD-bp): 68.3 % LA Vol Index: 16.5 ml/m2 Doppler Measurements & Calculations MV E max adela: 49.2 cm/sec MV dec time: 0.28 sec Ao V2 max: 119.4 cm/sec LV V1 max P.4 mmHg MV A max adela: 66.2 cm/sec Ao max P.7 mmHg LV V1 max: 105.4 cm/sec MV E/A: 0.74 Lat Peak E' Adela: 8.3 cm/sec JAMES(V,D): 2.8 cm2 E/E' Lat: 6.0 Med Peak E' Adela: 4.8 cm/sec E/E' Med: 10.3 Echocardiology Report AV VR: 0.88 Measurements from QLAB ED Mass (): 109.0 grams LAEF (): 60.0 % BSA (): 1.8 m2 CI (): 2.0 l/min/m2 TOPHER (): 20.0 ml/m2 LAVmax (): 36.0 ml LAVmin (): 14.0 ml Pat Height (): 160.0 cm Pat Weight (): 74.8 kg FINAL REPORT Dictated: 10/04/2024 2:13 pm Jagjit Parra MD Signed (Electronic Signature): 10/04/2024 8:23 pm Signed by: Jagjit Parra MD Transcribed by: [facility] Technologist: ODELL [facility] 08-16-2024 History of Presen t illness Narrative [...] 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/20/2024 726.0 LEFT [facility] [id number] DOI 07/29/12 Asthma Atypical nevi Ellison's esophagus 06/20/2024 Bartholin cyst 06/08/2024 Bursitis of shoulder 06/30/2016 Cervical spondylosis with radiculopathy 06/20/2024 Colon polyp 06/20/2024 Dysphagia 06/20/2024 Full thickness rotator cuff tear 03/12/2014 840.6 LEFT, RECURRENT [facility] [id number] DOI 07/29/12 History of colon polyps 06/20/2024 History of diverticulitis 06/20/2024 History of repair of ACL 2005 History of shoulder surgery Irregular bowel habits 06/20/2024 Irregular Z line of esophagus 06/20/2024 Lumbar disc herniation 02/16/2018 Added automatically from request for surgery [id number] Lumbosacral disc herniation 06/20/2024 Osteoarthritis 06/20/2024 RLQ [...] Insecurity: No Food Insecurity (06/10/2024) Received from [facility] Hunger Screening Within the past 12 [...] help tolerate tinnitus. documented in this encounter [facility] 07-13-2024 History of Presen t illness [...] abscess. Oncology History No history exists. Tiera Vailrandasanto Denies Early satiety Denies Abdominal distention Denies [...] 06/23/2024 Performed by Daniel Gold MD at [facility] SURGERY KNEE SURGERY Left 2008 meniscus SHOULDER SURGERY Left 7 total shoulder surgery, [id number] Past Medical History: Diagnosis Date Asthma Colon [...] May continue well woman care with primary lead technical architect. Hematuria - patient deferred UA today. Explained [...] moisturizers and lubricants. Explained that moisturizers provide alf relief for vaginal dryness and are used [...] of lubricants include [place], Astroglide, Uberlube, Pjur, Schuyler, Good Clean Love, and coconut oil. Discussed proper use, safety, potential side effects from moisturizers and lubricants. Samples of various lubricants were provided today as well. Discussed further management by her lead technical architect and estrace vaginal cream as a secondary option if needed. She may also return to our team for sexual health concerns if needed. *The patient has a documented plan of care to address pain. All questions were answered to the patient's satisfaction. She is agreeable to this plan of care. *This note was completed using a voice ob/gyn nurse system. Every effort was made to ensure accuracy. However, inadvertent computerized ob/gyn nurse errors may be present. *An evaluation and [...] Posada 07/13/24 1033 documented in this encounter [facility] 06-29-2024 History of Presen t illness Narrative Subjective: Tiera Wakefield is a 53 y.o. female who is s/p a excision of right bartholin's gland on 06/23/24. Pathology: pending Patient reports extensive pain and slight bleeding since her surgery. She states this is moderately controlled with ibuprofen. She ran out of Aynor which she states she was taking mostly [...] 06/23/2024 Performed by Daniel Gold MD at [facility] SURGERY KNEE SURGERY Left 2008 meniscus SHOULDER SURGERY Left 7 total shoulder surgery, [id number] Past Medical History: Diagnosis Date Asthma Colon [...] regimen involving ibuprofen 2-3 times daily with Aynor being used at night as needed. May also use ice packs for additional relief. Return to clinic in 2-3 weeks prior to returning to work. An OARRS report was pulled today and her risk score was 310. Aynor was given #7, to be taken nightly [...] *This note was completed using a voice ob/gyn nurse system. Every effort was made to ensure accuracy. However, inadvertent computerized ob/gyn nurse errors may be present. .Total time spent was 20 minutes: Preparing to see the patient (e.g., review of tests) Performing a medically appropriate examination and/or evaluation Ordering medications, tests, or procedures Documenting clinical information in the electronic or other health record Care coordination (not separately reported) Jeanette Tijerina PA-C, RD, IF MAHSA Posada 06/29/24 1526 documented in this encounter [facility] 06-29-2024 Miscellaneous Notes Patient called in w/concerns [...] for a 1 week PO appointment in [place]. Offered patient 12:30 or 3:00 today with JENNIFER Reid. Patient agreeable to coming in at 3:00. Address for [place] office given to patient and call was ended. documented in this encounter [facility] 06-29-2024 Telephone encounter Note Patient called in [...] for a 1 week PO appointment in [place]. Offered patient 12:30 or 3:00 today with JENNIFER Reid. Patient agreeable to coming in at 3:00. Address for [place] office given to patient and call was ended. [facility] 06-25-2024 Miscellaneous Notes Contract: 166 Had cyst and gland removed on 06/23 and she is still bleeding Contract: 166 Paged Resident to [facility] Resident called back and relayed info to call documented in this encounter [facility] 06-25-2024 Telephone encounter Note Contract: 166 Had cyst and gland removed on 06/23 and she is still bleeding [facility] 06-25-2024 Telephone encounter Note Contract: 166 Paged Resident to [facility] Resident called back and relayed info to call [facility] 03-04-2025 History of Presen t illness Narrative Subjective [...] 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/20/2024 726.0 LEFT [facility] [id number] DOI 07/29/12 Asthma (CMS/HCC) Atypical nevi Ellison's esophagus 06/20/2024 Bartholin cyst 06/08/2024 Bursitis of shoulder 06/30/2016 Cervical spondylosis with radiculopathy 06/20/2024 Colon polyp 06/20/2024 Dysphagia 06/20/2024 Full thickness rotator cuff tear 03/12/2014 840.6 LEFT, RECURRENT [facility] [id number] DOI 07/29/12 History of colon polyps 06/20/2024 History of diverticulitis 06/20/2024 History of repair of ACL 2006 History of shoulder surgery Irregular bowel habits 06/20/2024 Irregular Z line of esophagus 06/20/2024 Lumbar disc herniation 02/16/2018 Added automatically from request for surgery [id number] Lumbosacral disc herniation 06/20/2024 Osteoarthritis 06/20/2024 RLQ [...] Insecurity: No Food Insecurity (06/10/2024) Received from [facility] Hunger Screening Within the past 12 months [...] help tolerate tinnitus. documented in this encounter [facility] 06-15-2024 History of Presen t illness [...] sloping to a mild sensorineural hearing loss 8129-4617 Hz in the left ear. The right ear exhibited normal hearing 250-2000 Hz, sloping to a mild sensorineural hearing loss 9848-7351 Hz, returning to normal hearing at 8000 Hz. Speech Audiometry Right SRT = 15 dB and word discrimination score at 45 dBHL = 100% Left SRT = 15 dB and word discrimination score at 45 dBHL = 100% Tympanometry Normal tympanograms, bilaterally, indicating normal middle ear function Impressions: Dr. Kaiser 06-21-2024 documented in this encounter [facility] 06-10-2024 Instructions Eliana Soriano RN - 06/10/2024 10:30 AM EST Your surgery/procedure is scheduled at [facility] on 06/23/2024 at 7:30 am Arrival Time 5:30 am [facility] Address: [address] [place] [address], [facility], [address] Park in the Emergency Center Parking lot. Report to the java front end web developer in the Emergency/Surgery Registration lobby of the hospital. Notify your SURGEON if you develop any illness such as a cold, cough, fever, sore throat, vomiting or are hospitalized between now and your surgery. Please call Pre-Admission Clinic at [phone] if you have any questions prior to surgery. For questions the morning of surgery, call the Pre-op Department at [phone]. Medication Instructions (Do not stop your medications [...] weekly, hold 1 week prior to surgery: Jefunsuero . Blood thinners: Please contact your prescribing [...] would like to schedule therapy at a [facility] Rehab facility, please call [phone] ([phone]). Do not use lotions, creams, powders, perfume, make up, cologne or after-shaves day of surgery. Remove ALL jewelry including wedding rings, body piercings, hair extensions that contain metal, nail indonesian, make-up, and contact lens. You may brush your teeth the morning of surgery, but do not swallow the water. Wear your dentures and partial plates to the hospital (no adhesive). Shower the night the before. If applicable, use the CHG (chlorhexidine gluconate) soap or wipes. Please be advised, [facility] has transitioned to a cashless payment system. [...] RIGHTS AND RESPONSIBILITIES As a patient at [facility], you have the right to: Receive medical care and be informed of who is taking care of you Be treated with dignity and respect Have a family member/sales representative livestock of choice and your physician notified of your admission Receive information and actively participate in decisions about your care and treatment Refuse care, treatment and services Decide who may provide your support and speak for you Access adventist and spiritual services Participate in ethical issues [...] charges and payment methods Patient/patient sales representative livestock responsibilities are to: Provide information about health [...] in clean clothes. documented in this encounter [facility] 06-10-2024 Miscellaneous Notes Pt had a one view CXR done on 04/30/2024 at [facility] that was received by fax and scanned into [facility]. Gina Alberts at Dr Gold's office was notified and will check with Dr Mehta and will let pt know if she has to go for a two view prior to surgery. documented in this encounter [facility] 06-10-2024 Nurse Note Pt had a one view CXR done on 04/30/2024 at [facility] that was received by fax and scanned into [facility]. Gina Alberts at Dr Gold's office was notified and will check with Dr Mehta and will let pt know if she has to go for a two view prior to surgery. [facility] 06-08-2024 History of Presen t illness Narrative [...] date: 1985 Quit date: 2016 Years since quittin.1 Smokeless tobacco: Never Substance [...] procedures Referring and communicating with other health dog day care attendant (not separately reported) Documenting clinical information in the electronic or other health record Daniel Gold MD documented [facility] this encounter [facility] 05-24-2024 History of Presen t illness Narrative [...] nursing note reviewed. Exam conducted with a car wash supervisor present. Vitals: Estimated body mass index is [...] of: MAHSA Navarro documented in this encounter [facility] 12-29-2023 Hospital Discharg e instructions Patient [...] sitting or lying down. General instructions Take agxw-hrf-vlbpjmn and prescription medicines only as told by [...] provider. Document Revised: 09/22/2022 Document Reviewed: 09/22/2022 [email or web address] Patient Education 2023 [email or web address]. Follow Up Care 12/29/2023 20:01:29 With:GERALDUYEN TAVARES Address: [employer] [place] [address]- Business (1) When:Within 3 Day(s) [facility] 12-29-2023 Note ED Patient Education Note [...] or lying down. General instructions ? Take xaml-tbg-ryfhhyw and prescription medicines only as told by [...] provider. Document Revised: 09/22/2022 Document Reviewed: 09/22/2022 [email or web address] Patient Education ? 2023 [email or web address]. [facility] 12-29-2023 Evaluation + Plan note Extrac maggie from: Title:ED Note Author:Manav Fisher DO Date :12/29/23 Contusion of knee (S80.00XA: Contusion of unspecified knee, initial encounter) Orders: XR Knee Complete 4+ Views Right Future Scheduled Tests Laboratory* Magnesium Level 08/04/23 * Vitamin B12 Level 08/04/23 [facility] 09-04-2024 History of Present illness Narrative* [...] infection RTC for recheck. documented in this [facility]09-04-2024 Instructions* Patient Instructions* Yumiko Ríos RN - 12/23/2023 9:30 AM EDT See progress note documented in this [facility]04-16-2024 Hospital Discharge instructions Patient Education 08/04/2023 14:48:11 Ellison's Esophagus Ellison's Esophagus Ellison's esophagus occurs when the tissue that lines the esophagus changes or becomes damaged. Theesophagus is the tube that carries food from the throat to the stomach. With Ellison's esophagus, the cells that line the esophagus are replaced by cells that are similar to the lining of the intestines (intestinal metaplasia). Ellison's esophagus itself may not cause any symptoms. However, many people who have Ellison's esophagus also have gastroesophageal reflux disease (GERD), [...] are the signs or symptoms? People with Ellison's esophagus often have no symptoms. However, many [...] drinks. ?Tomatoes and foods made with tomatoes. ?[place] or spicy foods. ?Chocolate and peppermint. Do not drink alcohol. General instructions Take czuh-jti-hppmmjh and prescription medicines only as told by [...] not drive yourself to the hospital. Summary Ellison's esophagus occurs when the tissue that lines the esophagus changes or becomes damaged. Ellison's esophagus may be diagnosed with an upper [...] provider. Document Revised: 06/23/2020 Document Reviewed: 06/23/2020 [email or web address] Patient Education 2022 [email or web address]. Follow Up Care 07/22/2023 13:53:31 With:Anna Hassan CNP Address: When:1 month [facility] 04-16-2024 Evaluation + Plan note Future Scheduled Tests Laboratory* Magnesium Level 08/04/23 * Vitamin B12 Level 08/04/23 [facility] 01-30-2024 Hospital Discharge instructions [...] Follow these instructions at home: Medicines Take ydud-sxz-iauyxyt and prescription medicines only as told by [...] powder, vinegar, hot sauces, and barbecue sauce. ?[place] fruit juices and citrus fruits, such as oranges, zaynab, and limes. ?Tomato-based foods, such as red sauce, chili, salsa, and pizza with red sauce. ?Fried and fatty foods, such as donuts, urdu fries, potato chips, and high-fat dressings. ?High-fat [...] provider. Document Revised: 10/15/2020 Document Reviewed: 10/15/2020 [email or web address] Patient Education 2022 [email or web address]. Follow Up Care 05/18/2023 11:08:33 With:Anna Hassan CNP Address: When:3 months [facility] 11-01-2023 Evaluation note* Encounter [...] otitis media with effusion (ICD-10 - H65.93) [facility] Other 09-02-2023 Evaluation note* Encounter Date Diagnosis [...] dermati tis home care material was printed [facility] Other 07-31-2023 Hospital Discharge instructions Patient Education [...] treated at home. Treatment may include: Taking feyz-yuw-owydsbq pain medicines. Following a clear liquid diet. [...] Follow these instructions at home: Medicines Take xacm-ire-bvborkg and prescription medicines only as told by [...] provider. Document Revised: 01/16/2020 Document Reviewed: 01/16/2020 [email or web address] Patient Education 2022 [email or web address]. Follow Up Care 10/15/2022 08:09:26 With:Anna Hassan CNP Address: When:1 month [facility] 07-31-2023 Evaluation + Plan note Future Scheduled Tests Radiology* CT Abdomen/Pelvis w/ Contrast 11/17/22 [facility] 02-10-2023 NotePROCEDURE: XR [...] Electronically authenticated by: LIZBETH TANG Date: 2022-05-30 13:52[place]02-10-2023 NotePROCEDURE: XR ANKLE RT MIN 3 VIEWS, [...] Electronically authenticated by: LIZBETH TANG Date: 2022-05-30 13:52[place]04-08-2022 Evaluation note* Encounter Date Diagnosis Assessment Notes [...] - G89.29) Continue with current treatment plan. [facility] Other Evaluation + Plan note No data available for this section [facility] evaluation + Plan note Future Appointments Appointment Date:09/07/2023 03:15:00 PM Scheduled Provider:Elina Boyer MD Location:[facility] Appointment Type:[facility] Follow Up Future Scheduled Tests Laboratory* Magnesium Level 08/04/23 * Vitamin B12 Level 08/04/23 [facility] evaluation noteNo [employer] Other evaluation note* Diagnosis Onset Date Resolution Status Contact dermatitis [facility] Work Phone: evaluation note* Diagnosis Puncture wound of right foot, initial encounter- Primary documented in this encounter [facility]* Diagnosis Well woman exam with routine gynecological exam Routine gynecological examination Bartholin's gland cyst Cyst of Bartholin's gland Encounter for screening mammogram for malignant neoplasm of breast Yeast infection documented in this encounter [facility] HealthcareEvaluation note* Diagnosis Bartholin cyst- Primary Cyst of Bartholin's gland [facility]* Diagnosis Bartholin cyst- Primary Cyst of Bartholin's gland Preop testing Unspecified pre-operative examination Abscess of Bartholin gland [facility] Diagnosis Bartholin cyst Cyst of Bartholin's gland Preop testing Unspecified pre-operative examination Abscess of Bartholin gland documented [facility]* Diagnosis Sensorineural hearing loss, bilateral- Primary Right-sided tinnitus Unspecified tinnitus documented in this encounter [facility] HealthcareEvaluation note* Diagnosis Sensorineural hearing loss (SNHL) of right ear, unspecified hearing status on contralateral side- Primary Pulsatile tinnitus Tinnitus, unspecified laterality documented in this encounter [facility] Healthcare[facility]* Diagnosis Encounter for postoperative care- Primary Post-op pain Other acute postoperative pain [facility] Diagnosis Encounter for postoperative care- Primary Dyspareunia, female documented in [facility]* Diagnosis Family history of aneurysm- Primary Family history of other condition Pulsatile tinnitus Sensorineural hearing loss (SNHL) of right ear, unspecified hearing status on contralateral side documented in this encounter [facility] HealthcareEvaluation note* Diagnosis Dyspareunia, female Postmenopausal state Asymptomatic postmenopausal status (age-related) (natural) documented in this encounter [facility] Healthcare[facility] note* Diagnosis Bartholin cyst- Primary Cyst of Bartholin's gland documented [facility]* Diagnosis Bartholin cyst- Primary Cyst of Bartholin's gland Preop testing Unspecified pre-operative examination documented in this encounter [facility]* Diagnosis Encounter for postoperative care- Primary documented [facility] Narrative - Reported* Type Description Date Medical History Left rotator cuff Medical History Asthma Medical History GERD Surgical History 6 left shoulder surgeries Surgical History Left rotator cuff, x5 Surgical History Left knee Surgical History Left knee, torn ACL and meniscu s Surgical History Gallbladder Surgical History Lap Cholecystectomy Surgical History nerve block Hospitalization History See Above [facility] Other Hospital Discharge instructions No data available for this section [facility] InstructionsNot on filedocumented in this encounter [facility] filedocumented in this encounter [facility] filedocumented in this encounter [facility] filedocumented in this encounter [facility] filedocumented in this encounter [facility] No data available for this section [facility] Summary Purpose Family [...] section and content) DATE CREATED AUTHOR 03/22/2018 [facility] DATE CREATED AUTHOR AUTHOR'S ORGANIZ ATION 03/27/2018 [facility] DATE CREATED AUTHOR AUTHOR'S ORGANIZ ATION 03/27/2018 [facility] DATE CREATED AUTHOR AUTHOR'S ORGANIZ ATION 03/07/2019 [facility] DATE CREATED AUTHOR AUTHOR'S ORGANIZ ATION 07/30/2021 [facility] DATE CREATED AUTHOR AUTHOR'S ORGANIZ ATION 06/05/2022 [facility] DATE CREATED AUTHOR AUTHOR'S ORGANIZ ATION 06/13/2024 [facility] DATE CREATED AUTHOR AUTHOR'S ORGANIZ ATION 10/11/2024 [facility] EPIC DATE CREATED AUTHOR AUTHOR'S ORGANIZ ATION 10/12/2024 [facility] DATE CREATED AUTHOR AUTHOR'S ORGANIZ ATION 12/02/2024 [facility] DATE CREATED AUTHOR AUTHOR'S ORGANIZ ATION 12/21/2024 [facility] DATE CREATED AUTHOR AUTHOR'S ORGANIZ ATION 12/23/2024 [facility] REASON FOR VISIT (unrecogniz ed section and content) Reason Comments vaginal issues Reason Comments Tinnitus Echo results Reason Comments [...] November 16, 2023 End: November 16, 2023 Manager Contact Relationship Specialty Start Date End Date Unallocated, Graces MD Shuk[address] [place] [address] PCP - General Family Medicine 06/19/23 Manager Contact Relationship Specialty Start Date End Date Unallocated, Noms Shukri MD [address] [place] [address] PCP - General Family Medicine 06/19/23 Manager Contact Relationship Specialty Start Date End Date Unallocated, [facility] [place] [address] PCP - General Family Medicine 06/19/23 Manager Contact Relationship Specialty Start Date End Date Unallocated, Daniel Watt MD [facility] [address] [place] [address] PCP - General Family Medicine 06/19/23 Manager Contact Relationship Specialty Start Date End Date Gerald Tavares DO [address] [place] [address] PCP - General Family Medicine 09/26/21 Manager Contact Relationship Specialty Start Date End Date Gerald Tavares DO [address] [place] [address] PCP - General Family Medicine 09/26/21 Manager Contact Relationship Specialty Start Date End Date Gerald Tavares DO [address] [place] [address] PCP - General Family Medicine 09/26/21 Manager Contact Relationship Specialty Start Date End Date Unallocated, Daniel Watt MD [facility] [address] [place] [address] PCP - General Family Medicine 06/19/23 Manager Contact Relationship Specialty Start Date End Date Unallocated, Daniel Watt MD [facility] [place] [address] PCP - General Family Medicine 06/19/23 Manager Contact Relationship Specialty Start Date End Date Unallocated, Noms Provider, MD [address] [place] [id number] PCP - General Family Medicine 06/19/23 Manager Contact Relationship Specialty Start Date End Date Unallocated, Daniel Watt MD [address] [place] [id number] PCP - General Family Medicine 06/19/23 Manager Contact Relationship Specialty Start Date End Date Gerald Tavares DO [address] [place] [address] PCP - General Family Medicine 09/26/21 Manager Contact Relationship Specialty Start Date End Date Gerald Tavares DO [address] [place] [address] PCP - General Family Medicine 09/26/21 Manager Contact Relationship Specialty Start Date End Date Unallocated, Daniel Watt MD [address] [place] [id number] PCP - General Family Medicine 06/19/23 Gerald Tavares MD [address] [place] [address] Referring Physician Family Medicine 08/16/24 Ubaldo Kaiser, [address] [place] [address] [place] [address] Otolaryngology 08/16/24 Manager Contact Relationship Specialty Start Date End Date Unallocated, Daniel Watt MD [address] [place] [id number] PCP - General Family Medicine 06/19/23 Gerald Tavares MD [address] [place] [address] Referring Physician Family Medicine 08/16/24 Ubaldo Kaiser DO [address] [place] [address] Otolaryngology 08/16/24 Manager Contact Relationship Specialty Start Date End Date Unallocated, Noms MD [address] [place] [address] PCP - General Family Medicine 06/19/23 Gerald Tavares MD [address] [place] [id number] Referring Physician Family Medicine 08/16/24 Ubaldo Kaiser DO [address] [facility] [place] [address] Otolaryngology 08/16/24 Manager Contact Relationship Specialty Start Date End Date Gerald Tavares DO [address] [place] [id number] PCP - General Family Medicine 09/26/21 Manager Contact Relationship Specialty Start Date End Date Gerald Tavares DO [address] [place] [id number] PCP - General Family Medicine 09/26/21 Goals (unrecognized section and content) Goals may [...] BE BASED ON THE PRIMARY CLINICAL RECORDS. [facility] [employer] [facility]. provides no warranty or guarantee of the accuracy or completeness of information in this document.
[2024-12-24 19:36] VITALS: BP 170/80; O2SAT 99
[2024-12-24 19:40] VITALS: BP 148/87; PULSE 59; O2SAT 98
[2024-12-24 19:45] VITALS: PULSE 62; O2SAT 99
[2024-12-24 20:00] VITALS: BP 142/85; PULSE 61; O2SAT 97
--- NOTE | 2024-12-24 20:03 | ECG_ITS ---
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
--- NOTE | 2024-12-24 20:10 | ED.GENADUL1 ---
HPI HPI - General Adult General Chief complaint: Arrhythmia/Palpitations Stated complaint: AFIB, PALPITATIONS Time Seen by Provider: 12/24/24 19:41 Source: patient Mode of arrival: walk-in History of Present Illness HPI narrative: Patient is a 54-year-old female that presents to the emergency department with complaints of palpitations and feeling of her heart beating in her throat that she fell earlier today. She states that she is not feeling the palpitations currently or the heaviness when they were occurring earlier but still somewhat feels the heart beating in her throat . She was diagnosed with atrial fibrillation after an emergency department visit in September with similar complaints. She has been following with cardiology and just finished with her loop recorder and turned it in. She has not gotten the results from that yet. She has been on Eliquis, last dose was yesterday. She was off of Eliquis for a week prior to a Vulvar Cyst removal she had on December 16. She does go back to see her retail sales specialist in 2 weeks. She denies any exogenous hormone use, but states that she was on these prior to diagnosed with atrial fibrillation. She states she has been under extreme stress with her [id number] moving in with her and her . She denies excess caffeine use today. Related Data Home Medications ?Medication ?Instructions ?Recorded ?Confirmed albuterol sulfate 90 mcg/actuation 1 puff inhalation Q4H PRN 10/08/22 12/24/24 aerosol inhaler shortness of breath or wheezing omeprazole 20 mg capsule,delayed 20 mg PO BID 10/08/22 12/24/24 release citalopram 20 mg tablet (Celexa) 20 mg PO DAILY 09/23/24 12/24/24 apixaban 5 mg tablet (Eliquis) 5 mg PO Q12H 12/24/24 12/24/24 Allergies Allergy/AdvReac Type Severity Reaction Status Date / Time No Known Drug Allergies Allergy Verified 12/24/24 19:39 Opioid HPI Opioid Management Most Recent Opioid Data: Last Pain Scale 2 08/29/24, 01:40 Review of Systems ROS Status of ROS 10 or more systems reviewed and unremarkable except as noted in history and below PFSH PFSH Social History Smoking status: Former smoker Little interest or pleasure in doing things: not at all Feeling down, depressed, or hopeless: not at all Exam Narrative Exam Narrative: General: No distress, age-appropriate Skin: Warm, dry, no pallor. No rash. Head: Normocephalic, atraumatic. Neck: Supple, non-tender. Eye: Pupils are equal, round and EOMI. No scleral icterus. Ears, Nose, Mouth, and Throat: No nasal mucosal hypertrophy. Oral mucosa is moist, no posterior oropharynx erythema, uvula is mid-line Cardiovascular: Regular Rate and Rhythm without murmur, gallop or rub. Respiratory: No accessory muscle use or respiratory distress. Lungs are clear to auscultation, no wheezing, rales or rhonchi Chest Wall: no tenderness Back: No midline thoracic or lumbar vertebral tenderness. Musculoskeletal: Full ROM of all extremities, no calf or popliteal tenderness GI: Abdomen is soft, non-distended, non tender to palpation. No masses appreciated. No rebound, guarding, or rigidity noted. Neurological: A&O x4. No cranial nerve dysfunction observed. No truncal ataxia. Moves all extremities. Sensation intact. Psychiatric: Cooperative and interactive. Normal mood and affect. Constitutional Vital Signs, click to edit/add: Last Vital Signs Temp 97.8 F 12/24/24 19:34 Pulse 62 12/24/24 20:30 Resp 16 12/24/24 20:30 BP 131/76 12/24/24 20:30 Pulse Ox 96 12/24/24 20:30 O2 Del Method Room Air 12/24/24 19:34 Course Vital Signs Vital signs: Vital Signs Temperature 97.8 F 12/24/24 19:34 Pulse Rate 62 12/24/24 19:34 Respiratory Rate 20 12/24/24 19:34 Blood Pressure 170/80 H 12/24/24 19:34 Pulse Oximetry 99 12/24/24 19:34 Oxygen Delivery Method Room Air 12/24/24 19:34 Temperature 97.8 F 12/24/24 19:34 Pulse Rate 62 12/24/24 20:30 Respiratory Rate 16 12/24/24 20:30 Blood Pressure 131/76 12/24/24 20:30 Pulse Oximetry 96 12/24/24 20:30 Oxygen Delivery Method Room Air 12/24/24 19:34 Medical Decision Making MDM Narrative Medical decision making narrative: 54-year-old female with a PMH of anxiety, Ellison's esophagus, and atrial fibrillation on Eliquis that presented to the emergency department with complaints of heart palpitations/ feeling of a heartbeat in her throat that she experienced today. On arrival she is not still feeling the heart palpitations but still feels a funny feeling of heartbeat in her throat . She was just diagnosed with atrial fibrillation in September and started on Eliquis. She did have a DENTAL BILLING SPECIALIST surgery recently to remove a vulvar cyst where she did go under general anesthesia. She was off of her Eliquis for about a week prior to that on 12/16/2024. She has been taking it since the surgery, last dose was yesterday. She states she is under extreme stress from her [id number] moving in. On arrival patient is in no distress, vitals are stable. On EKG heart rate is 60 and normal sinus rhythm. CBC, BMP within normal limits, calcium, phosphorus, magnesium WNL, D-dimer negative. Patient on color television console monitor throughout her ER course and remained in normal sinus rhythm, heart rate in low 60s, and vitals remained stable. Patient nontoxic appearing. I discussed results with her and the plan to discharge home. Patient agrees. She will return to the emergency department if she has any return of the symptoms or any new symptoms. Patient discharged home in good condition with plan to follow-up with PCP and retail sales specialist Differential Diagnosis Differential Diagnosis: PE, A-fib with RVR Lab Data Labs: Lab Results 12/24/24 Range/Units 20:10 WBC 5.5 (4.0-11.0) 10^3/uL RBC 4.61 (4.20-5.40) 10^6/uL Hgb 13.9 (12.0-16.0) g/dL Hct 40.4 (36.0-48.0) % MCV 87.6 (81.0-99.0) fL MCH 30.2 (26.7-34.0) pg MCHC 34.4 (29.9-35.2) g/dL RDW 12.0 (11.0-15.0) % Plt Count 257 (150-450) 10^3/uL MPV 9.1 L (9.5-13.5) fL Neut % (Auto) 44.0 (43.0-75.0) % Lymph % (Auto) 39.9 (20.5-60.0) % [place] % (Auto) 8.9 (1.7-12.0) % Eos % (Auto) 5.8 (0.9-7.0) % Baso % (Auto) 0.9 (0.2-2.0) % Neut # (Auto) 2.4 (1.4-6.5) 10^3/uL Lymph # (Auto) 2.2 (1.2-3.8) 10^3/uL [place] # (Auto) 0.5 (0.3-0.8) 10^3/uL Eos # (Auto) 0.3 (0.0-0.7) 10^3/uL Baso # (Auto) 0.1 (0.0-0.1) 10^3/uL Abs Immat Gran (auto) 0.03 (0.00-0.03) 10^3/uL Imm/Tot Granulo (auto) 0.5 (0.0-0.5) % D-Dimer <0.19 (<=0.59) mg/L FEU Sodium 140 (136-145) mmol/L Potassium 3.7 (3.5-5.1) mmol/L Chloride 106 (98-107) mmol/L Carbon Dioxide 28.6 (21.0-32.0) mmol/L Anion Gap 9.1 BUN 8.0 (7.0-18.0) mg/dL Creatinine 0.75 (0.55-1.02) mg/dL Est GFR ( Amer) >60 (>=60 mL/min/1.73m^2) Est GFR (Non-Af Amer) >60 (>=60 mL/min/1.73m^2) BUN/Creatinine Ratio 10.7 Glucose 90 (74-106) mg/dL Calcium 8.4 L (8.5-10.1) mg/dL Phosphorus 3.4 (2.6-4.7) mg/dL Magnesium 2.1 (1.8-2.4) mg/dL ECG Data Attestation: ?I have reviewed the pertinent ECG results. Discharge Plan Discharge Chief Complaint: Arrhythmia/Palpitations Clinical Impression: Palpitations, Anxiety Patient Disposition: Home, Self-Care Time of Disposition Decision: 20:46 Condition: Good Mode of Transportation: Private Vehicle Prescriptions / Home Meds: No Action citalopram [Celexa] 20 mg tablet 20 mg PO DAILY albuterol sulfate 90 mcg/actuation HFA aerosol inhaler 1 puff INHALATION Q4H PRN (Reason: shortness of breath or wheezing) omeprazole 20 mg capsule,delayed release(DR/EC) 20 mg PO BID Eliquis 5 mg tablet 5 mg PO Q12H Print Language: Maori Instructions: Heart Palpitations (ED), Anxiety (ED) Additional Instructions: Follow-up with your retail sales specialist as scheduled. Also follow-up with your primary care provider to discuss stress/anxiety. If you experience any new or worsening symptoms return to the emergency department for evaluation. Referrals: ORACIO SINGH DO [Primary Care Provider, Family Practice] - 1 week Discharge Date/Time: 12/24/24 20:59
[2024-12-24 20:17] LABS: Hematocrit 40.4 % (36.0-48.0); Hemoglobin 13.9 g/dL (12.0-16.0); Immature Granulocytes Abs Auto 0.03 10^3/uL (0.00-0.03); Immature Granulocytes Pct Auto 0.5 % (0.0-0.5); Lymphocytes Absolute Auto 2.2 10^3/uL (1.2-3.8); Mean Corpuscular HGB Conc 34.4 g/dL (29.9-35.2); Mean Corpuscular Hemoglobin 30.2 pg (26.7-34.0); Mean Corpuscular Volume 87.6 fL (81.0-99.0); Platelet Count 257 10^3/uL (150-450); Red Blood Count 4.61 10^6/uL (4.20-5.40); White Blood Count 5.5 10^3/uL (4.0-11.0)
[2024-12-24 20:29] LABS: Anion Gap 9.1; Blood Urea Nitrogen 8.0 mg/dL (7.0-18.0); Calcium 8.4 mg/dL (8.5-10.1); Carbon Dioxide 28.6 mmol/L (21.0-32.0); Chloride 106 mmol/L (98-107); Estimated GFR (African America >60 (>=60 mL/min/1.73m^2); Estimated GFR (Non-African Ame >60 (>=60 mL/min/1.73m^2); Glucose 90 mg/dL (74-106); Magnesium 2.1 mg/dL (1.8-2.4); Potassium 3.7 mmol/L (3.5-5.1); Sodium 140 mmol/L (136-145)
[2024-12-24 20:30] VITALS: BP 131/76; PULSE 62; O2SAT 96
== END 2024-12-24 20:59 | disposition home or self-care (01) ==
PROVIDERS: Physician Assistant; Emergency Provider Internal Medicine; PCP Family Medicine
DX: R00.2 Palpitations (principal); I48.91 Unspecified atrial fibrillation; Z79.01 Long term (current) use of anticoagulants; Z87.891 Personal history of nicotine dependence; F41.9 Anxiety disorder, unspecified
CPT/HCPCS: 36415; 80048; 83735; 84100; 85025; 85378; 93005; 99284

== ENCOUNTER 2025-01-12 08:52 | Emergency (ER) | payer BC, SELFPAY ==
[2025-01-12 09:03] VITALS: BP 142/93; PULSE 65; TEMP 37.1; O2SAT 97; BMI 28.3
--- NOTE | 2025-01-12 09:20 | XR_ITS ---
[facility] [place] [id number] Patient Name: COLIN MACIAS MRN: [id number] date: 1970 Sex: F Assigned Patient Location: ER Current Patient Location: ED.MAIN Accession/Order Number: [id number] Exam Date: 01/12/2025 10:05 Report Date: 01/12/2025 10:26 At the request of: KAREN PHELAN MD Procedure: XR chest 1V PA CHEST: CLINICAL HISTORY: Cough COMPARISON: 09/23/2024 The heart is normal in size. The lungs are clear. The pulmonary vasculature is normal. Mediastinum and hilar regions are unremarkable. No pleural effusions are seen. Visualized bones are intact. XR/XR chest 1V IMPRESSION: NO ACUTE CARDIOPULMONARY FINDINGS. Impression dictated by: Rosy Cespedes M.D. 01/12/2025 10:26 AM Dictation Location: [place] [address] Electronically authenticated by: [id number] Y Date: 01/12/2025 10:26
--- NOTE | 2025-01-12 09:22 | ED.GENADUL1 ---
HPI HPI - General Adult General Chief complaint: Upper Respiratory Infection Stated complaint: URTI COMPLAINTS Time Seen by Provider: 01/12/25 09:00 Source: patient Mode of arrival: walk-in Limitations: no limitations History of Present Illness HPI narrative: 54-year-old female presents to the emergency department for cough. She has been feeling well for 4 days and 2 days ago the cough started. It is nonproductive. She has been using her inhaler and nebulizer more often than usual. No fever vomiting or diarrhea. She has asthma. Related Data Home Medications ?Medication ?Instructions ?Recorded ?Confirmed albuterol sulfate 90 mcg/actuation 1 puff inhalation Q4H PRN 10/08/22 01/12/25 aerosol inhaler shortness of breath or wheezing omeprazole 20 mg capsule,delayed 20 mg PO BID 10/08/22 01/12/25 release citalopram 20 mg tablet (Celexa) 20 mg PO DAILY 09/23/24 01/12/25 apixaban 5 mg tablet (Eliquis) 5 mg PO Q12H 12/24/24 01/12/25 Previous Rx's ?Medication ?Instructions ?Recorded azithromycin 250 mg tablet See Rx Instructions PO .COMPLEX #6 01/12/25 (Zithromax Z-Lon) tabs benzonatate 100 mg capsule 100 mg PO TID PRN cough #20 caps 01/12/25 prednisone 10 mg tablet See Rx Instructions .Route 01/12/25 .COMPLEX #30 tabs Allergies Allergy/AdvReac Type Severity Reaction Status Date / Time No Known Drug Allergies Allergy Verified 12/24/24 19:39 Opioid HPI Opioid Management Most Recent Opioid Data: Last Pain Scale 2 08/29/24, 01:40 Review of Systems ROS Narrative A ten point review of systems is negative except as noted above. PFSH PFSH Social History Smoking status: Former smoker Little interest or pleasure in doing things: not at all Feeling down, depressed, or hopeless: not at all Exam Narrative Exam Narrative: Nurses note and vital signs reviewed and patient is not hypoxic. General:The patient appears well and in no apparent distress.Patient is resting comfortably on cart. Skin:Warm, dry, no pallor noted.There is no rash noted. Head:Normocephalic, atraumatic Eye: Normal conjunctiva, no drainage Ears, Nose, Mouth, and Throat: oral mucosa is moist. Nares patent. Cardiovascular:Regular Rate and Rhythm Respiratory: Bilateral rhonchi throughout Back:non-tender GI: Soft and nontender Musculoskeletal: The patient has no evidence of calf tenderness, no pitting edema, symmetrical pulses noted bilaterally Neurological:A&O, normal speech Psychiatric:Cooperative Constitutional Vital Signs, click to edit/add: Last Vital Signs Temp 98.7 F 01/12/25 09:03 Pulse 72 01/12/25 10:02 Resp 18 01/12/25 10:02 BP 142/70 H 01/12/25 10:02 Pulse Ox 95 01/12/25 10:02 O2 Del Method Room Air 01/12/25 10:02 Course Vital Signs Vital signs: Vital Signs Temperature 98.7 F 01/12/25 09:03 Pulse Rate 65 01/12/25 09:03 Respiratory Rate 22 H 01/12/25 09:03 Blood Pressure 142/93 H 01/12/25 09:03 Pulse Oximetry 97 01/12/25 09:03 Oxygen Delivery Method Room Air 01/12/25 09:03 Temperature 98.7 F 01/12/25 09:03 Pulse Rate 72 01/12/25 10:02 Respiratory Rate 18 01/12/25 10:02 Blood Pressure 142/70 H 01/12/25 10:02 Pulse Oximetry 95 01/12/25 10:02 Oxygen Delivery Method Room Air 01/12/25 10:02 Medical Decision Making MDM Narrative Medical decision making narrative: Her workup is negative. She will be prescribed Zithromax, Tessalon, and prednisone. Treatment diagnosis and follow-up were discussed with the patient. Differential Diagnosis Differential Diagnosis: Pneumonia, COVID, influenza, URI Lab Data Lab results reviewed: Yes I reviewed the patient's lab results Labs: Lab Results 01/12/25 Range/Units 09:42 Influenza Type A Ag Negative Influenza Type B Ag Negative SARS-CoV-2 Ag (CV2AG) Negative (NEGATIVE) Imaging Data Chest x-ray: Radiologist's impression: ITS Impressions Chest X-Ray 01/12/25 09:20 IMPRESSION: NO ACUTE CARDIOPULMONARY FINDINGS. Impression dictated by: Rosy Cespedes M.D. 01/12/2025 10:26 AM Dictation Location: [place] [address] Electronically authenticated by: [id number] Y Date: 01/12/2025 10:26 Discharge Plan Discharge Chief Complaint: Upper Respiratory Infection Clinical Impression: Upper respiratory infection Patient Disposition: Home, Self-Care Time of Disposition Decision: 10:33 Condition: Good Mode of Transportation: Private Vehicle Prescriptions / Home Meds: New prednisone 10 mg tablet See Rx Instructions .ROUTE .COMPLEX Qty: 30 0RF Rx Instructions: 4 by mouth daily for three days then 3 by mouth daily for three days then 2 by mouth daily for three days then 1 by mouth daily for three days azithromycin [Zithromax Z-Lon] 250 mg tablet See Rx Instructions .ROUTE .COMPLEX Qty: 6 0RF Rx Instructions: For 250 mg dose pack: take 500 mg today (day 1), then 250 mg for 4 days (days 2-5) benzonatate 100 mg capsule 100 mg PO TID PRN (Reason: cough) Qty: 20 0RF No Action citalopram [Celexa] 20 mg tablet 20 mg PO DAILY albuterol sulfate 90 mcg/actuation HFA aerosol inhaler 1 puff INHALATION Q4H PRN (Reason: shortness of breath or wheezing) omeprazole 20 mg capsule,delayed release(DR/EC) 20 mg PO BID Eliquis 5 mg tablet 5 mg PO Q12H Print Language: [place]orese Instructions: Upper Respiratory Infection (ED) Referrals: ORACIO SINGH DO [Primary Care Provider, Family Practice] - 1 week
[2025-01-12] MEDS: ALBUTEROL SULFATE 2.5 MG/3 ML VIAL NEB IH (09:29)
[2025-01-12 09:31] VITALS: PULSE 85; O2SAT 96
[2025-01-12] MEDS: METHYLPREDNISOLONE SOD SUCC PF 125 MG/2 ML VIAL IM (09:47)
[2025-01-12 10:02] VITALS: BP 142/70; PULSE 72; O2SAT 95
[2025-01-12 10:06] LABS: SARS-CoV-2 Ag NEGATIVE (NEGATIVE)
--- OUTSIDE RECORDS SUMMARY | 2025-01-12 10:31 | XMS_ITS | CCD ---
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 Knee [...] 12/29/2023 21:33:24 12/29/2023 21:33:24 12/29/2023 21:33:24 ADDRESS: [address] [id number] PHYS DOC NOTES: MEDICAL INFORMATION: Prescriptions Given: Medications to Continue with No Changes Other Medications acetaminophen-hydrocodone (Coronado 325 mg-5 mg oral tablet) 1 Tablets [...] Follow up: With: Address: When: GERALD TAVARES [address] [place] [address] Business (1) In 3 days DIAGNOSIS: Contusion of knee Normal [facility] ED Note-Physicianon 12-29-19 ED Note-Physician ED Note-Physician [...] and Complexity of Problems Differential Diagnosis: [] [facility] Data External documents reviewed: N/A My [...] Information GERALD TAVARES In 3 days [address] [place] [id number]- [employer] (1) Additional Instructions: Patient Education Contusion Problem List/Past Medical History Ongoing Acid reflux Ellison's esophagus Colon polyp Degenerative disc disease Hiatal hernia History of colon polyps History of diverticulitis Irregular Z line of esophagus OA - Osteoarthritis Rectal polyp Schatzki's ring Historical Dysphagia Esophagitis, Meigs grade B Gallbladder stones Irregular bowel habits [...] Topical, Daily, Not taking Mylanta Maximum Strength Coronado 325 mg-5 mg oral tablet, 1 tab(s), [...] smoker, qu (more content not included)... Normal [facility] Comment on above: Result Comment: Elec tronically Signed By: Manav Fisher DO\.br\Date and Time Signed: 12/29/23 21:22 EDT ED Patient Summaryon 024 ED Patient Summary ED Patient Summary [place] [id number] Patient Discharge Instructions Person Information Name: TIERA WAKEFIELD Age: 53 Years Arrival Date: 12/29/2023 19:59:47 Discharge Diagnosis: Contusion of knee Primary Care Physician: GERALD TAVARES DO Provider Information Primary Provider: Manav Fisher DO Advanced Bottom Turner:None The exam and treatment you received in the Emergency Department were for an urgent problem and are not intended as complete care. It is important that you follow up with a doctor, nurse practitioner, or physician?s press operator assistant for ongoing care. If your symptoms [...] Instructions: With: Address: When: GERALD TAVARES [address] [place], [place] [id number] Business (1) In 3 days In the event that this physician does not participate in your insurance network, please consult with your insurance company to find a nearby participating provider. Patient Education Materials: Contusion A MESSAGE TO ALL PATIENTS REGARDING OPIOIDS PRESCRIPTION OPIOIDS: WHAT YOU NEED TO KNOW Prescription opioids can be used to help relieve riccefpz-ar-dnumxi pain and are often prescribed following a [...] with addiction, tell your health home health aide caregiver and ask for guidance or call [facility]?S National Helpline at 3-482-681-KGCX. a Source: Department of [facility] (more content not included)... Normal [facility] Quick Strepon 02-18-2023 S. pyogenes Org specific cx Ql (Throat) Negative [employer] Other Quick Strep [employer] Other CBC AUTO DIFFon 06-04-2022 BASO # 0.0 103/ul Normal 0.0-0.1 [facility] Comment on above: Performed By: #### C BC #### [facility] [address] [place] [address] [address] Jacob Mcdaniel Basophils/100 WBC (Bld) 0.8 % Normal 0.2-2.0 [facility] Comment on above: Performed By: #### C BC #### [facility] [address] [place] [address] Dr. Jacob Mcdaniel EO # 0.2 103/ul Normal 0.0-0.7 [facility] Comment on above: Performed By: #### C BC #### [facility] [address] [place] [address] Dr. Jacob Mcdaniel Eosinophils/100 WBC (Bld) 3.0 % Normal 0.9-7.0 [facility] Comment on above: Performed By: #### C BC #### [facility] [address] [place] [address] Dr. Jacob Mcdaniel Erythrocyte distribution width (RBC) [Ratio] 12.1 % Normal 11.0-15.0 [facility] Comment on above: Performed By: #### C BC #### [facility] [address] [place] [address] Dr. Jacob Mcdaniel Hematocrit (Bld) [Volume fraction] 42.5 % Normal 36.0-48.0 [facility] Comment on above: Performed By: #### C BC #### [facility] [address] [place] [address] Dr. Jacob Mcdaniel Hemoglobin (Bld) [Mass/Vol] 14.7 g/dL Normal 12.0-16.0 [facility] Comment on above: Performed By: #### C BC #### [facility] [address] [place] [address] Dr. Jacob Mcdaniel IG # 0.02 10e3/ul Normal 0.00-0.03 [facility] Comment on above: Performed By: #### C BC #### [facility] [address] [place] [address] Dr. Jacob Mcdaniel IG % 0.4 % Normal 0.0-0.5 [facility] Comment on above: Performed By: #### C BC #### [facility] [address] [place] [address] Dr. Jacob Mcdaniel LYMPH # 1.7 103/ul Normal 1.2-3.8 [facility] Comment on above: Performed By: #### C BC #### [facility] [address] [place] [address] [address] Jacob Mcdaniel Lymphocytes/100 WBC (Bld) 31.8 % Normal 20.5-60.0 [facility] Comment on above: Performed By: #### C BC #### [facility] [address] [place] [address] [address] Jacob Mcdaniel MANUAL DIFF REQ NO Normal [facility] Comment on above: Performed By: #### C BC #### [facility] [address] [place] [address] Dr. Jacob Mcdaniel MCH (RBC) [Entitic mass] 30.1 pg Normal 26.7-34.0 [facility] Comment on above: Performed By: #### C BC #### [facility] [address] [place] [address] Dr. Jacob Mcdaniel MCHC (RBC) [Mass/Vol] 34.6 g/dL Normal 29.9-35.2 [facility] Comment on above: Performed By: #### C BC #### [facility] [address] [place] [address] Dr. Jacob Mcdaniel MCV (RBC) [Entitic vol] 86.9 fL Normal 81.0-99.0 [facility] Comment on above: Performed By: #### C BC #### [facility] [address] [place] [address] Dr. Jacob Mcdaniel MONO # 0.3 103/ul Normal 0.3-0.8 [facility] Comment on above: Performed By: #### C BC #### [facility] [address] [place] [address] Dr. Jacob Mcdaniel Monocytes/100 WBC (Bld) 6.2 % Normal 1.7-12.0 [facility] Comment on above: Performed By: #### C BC #### [facility] [address] [place] [address] Dr. Jacob Mcdaniel NEUT # 3.1 103/ul Normal 1.4-6.5 [facility] Comment on above: Performed By: #### C BC #### [facility] [address] [place] [address] [address] Jacob Mcdaniel Neutrophils/100 WBC (Bld) 57.8 % Normal 43.0-75.0 [facility] Comment on above: Performed By: #### C BC #### [facility] [address] [place] [address] [address] Jacob Mcdaniel Platelet mean volume (Bld) [Entitic vol] 8.9 fL Critically low 9.5-13.5 [facility] Comment on above: Performed By: #### C BC #### [facility] [address] [place] [address] [address] Jacob Mcdaniel PLT 263 103/ul Normal 150-450 [facility] Comment on above: Performed By: #### C BC #### [facility] [address] [place] [address] [address] Jacob Mcdaniel RBC 4.89 106/ul Normal 4.20-5.40 [facility] Comment on above: Performed By: #### C BC #### [facility] [address] [place] [address] [address] Jacob Mcdaniel WBC 5.3 103/ul Normal 4.0-11.0 [facility] Comment on above: Performed By: #### C BC #### [facility] [address] [place] [address] [address] Jacob Mcdaniel MAMM SCREEN 3D ISABEL CADon 06-04-2022 MG MAMM SCREEN 3D ISABEL CAD Patient: TIERA WAKEFIELD Exam Date: 06/04/2022 : 1970 Gender:F Ordering : DR HERB MEDEL . Admission #: [id number] Family : DR GERALD TAVARES D.O. Order #: [id number] CLICK HERE TO VIEW EXAM RADIOLOGY REPORT [...] kidney cancer at age 64. LOCATION: [facility] BREAST COMPOSITION: Heterogeneously dense,which may obscure [...] MD on 06/04/2022 at 14:03 Normal [facility] PROF 14(COMP METB)on 06-04- 023 Albumin [Mass/Vol] 4.0 g/dL Normal 3.4-5.0 [facility] Comment on above: Performed By: #### T MACKENZIE, CMP #### [facility] [address] [place] [address] Dr. Jacob Mcdaniel Albumin/Globulin [Mass ratio] 1.2 {ratio} Normal [facility] Comment on above: Performed By: #### T MACKENZIE, CMP #### [facility] [address] [place] [address] Dr. Jacob Mcdaniel ALP [Catalytic activity/Vol] 69 U/L Normal 46-116 [facility] Comment on above: Performed By: #### T MACKENZIE, CMP #### [facility] [address] [place] [address] Dr. Jacob Mcdaniel ALT [Catalytic activity/Vol] 40 U/L Normal 14-59 [facility] Comment on above: Performed By: #### T MACKENZIE, CMP #### [facility] [address] [place] [address] Dr. Jacob Mcdaniel Anion gap [Moles/Vol] 12.1 mmol/L Normal [facility] Comment on above: Performed By: #### T MACKENZIE, CMP #### [facility] [address] [place] [address] Dr. Jacob Mcdaniel AST [Catalytic activity/Vol] 21 U/L Normal 15-37 [facility] Comment on above: Performed By: #### T SH, CMP #### [facility] [address] [place] [address] Dr. Jacob Mcdaniel Bilirubin [Mass/Vol] 0.8 mg/dL Normal 0.2-1.0 [facility] Comment on above: Performed By: #### T SH, CMP #### [facility] [address] [place] [address] Dr. Jacob Mcdaniel Calcium [Mass/Vol] 9.5 mg/dL Normal 8.5-10.1 [facility] Comment on above: Performed By: #### T SH, CMP #### [facility] [address] [place] [address] Dr. Jacob Mcdaniel Chloride [Moles/Vol] 103 mmol/L Normal 98-107 [facility] Comment on above: Performed By: #### T SH, CMP #### [facility] [address] [place] [address] Dr. Jacob Mcdaniel CO2 [Moles/Vol] 31.9 mmol/L Normal 21.0-32.0 [facility] Comment on above: Performed By: #### T SH, CMP #### [facility] [address] [place] [address] Dr. Jacob Mcdaniel Creatinine [Mass/Vol] 0.84 mg/dL Normal 0.55-1.02 [facility] Comment on above: Performed By: #### T SH, CMP #### [facility] [address] [place] [address] Dr. Jacob Mcdaniel EGFR-AF GABONESE >60 Normal >=60 [facility] Comment on above: Performed By: #### T SH, CMP #### [facility] [address] [place] [address] Dr. Jacob Mcdaniel EGFR-NON AF GABONESE >60 Normal >=60 [facility] Comment on above: Performed By: #### T SH, CMP #### [facility] [address] [place] [address] Dr. Jacob Mcdaniel Globulin (S) [Mass/Vol] 3.4 g/dL Normal [facility] Comment on above: Performed By: #### T SH, CMP #### [facility] [address] [place] [address] [address] Jacob Mcdaniel Glucose [Mass/Vol] 105 mg/dL Normal 74-106 [facility] Comment on above: Performed By: #### T SH, CMP #### [facility] [address] [place] [address] [address] Jacob Mcdaniel Potassium [Moles/Vol] 4.0 mmol/L Normal 3.5-5.1 [facility] Comment on above: Performed By: #### T SH, CMP #### [facility] [address] [place] [address] [address] Jacob Mcdaniel Protein [Mass/Vol] 7.4 g/dL Normal 6.4-8.2 [facility] Comment on above: Performed By: #### T MACKENZIE, CMP #### [facility] [address] [place] [address] [address] Jacob Mcdaniel Sodium [Moles/Vol] 143 mmol/L Normal 136-145 [facility] Comment on above: Performed By: #### T SH, CMP #### [facility] [address] [place] [address] [address] Jacob Mcdaniel Urea nitrogen [Mass/Vol] 12.0 mg/dL Normal 7.0-18.0 [facility] Comment on above: Performed By: #### T SH, CMP #### [facility] [address] [place] [address] [address] Jacob Mcdaniel Urea nitrogen/Creatini ne [Mass ratio] 14.3 mg/mg Normal [facility] Comment on above: Performed By: #### T SH, CMP #### [facility] [address] [place] [address] [address] Jacob Mcdaniel TSHon 06-04-2022 TSH 0.619 uIU/mL Normal 0.358-3.740 [facility] Comment on above: Performed By: #### T SH, CMP ####[facility] [address] [place] [address]Dr. Jacob Mcdaniel VIT B12 AND FOLATEon 023 Cobalamin (Vitamin B12) [Mass/Vol] 396.0 pg/mL Normal 193.0-986.0 [facility] Comment on above: Performed By: #### B 12FOL ####[facility] [address] [place], [place] [address]Mo. Jacob Mcdaniel FOLATE 9.30 ng/mL Normal 8.60-58.90 [facility] Comment on above: Performed By: #### B 12FOL ####[facility] [address] [place], [place] [address]Px. Jacob Mcdaniel XR DEXA BONE DENSITYon 06-04 [...] MONROY Date: 2022-06-04 13:14 Normal [facility] XR CSPINE 2_3 VIEWSon 2022 XR [...] by: LIZBETH TANG Date: 2022-05-30 13:58 Normal [facility] PAP ACOG PANEL 2: 30 to 65on 01-29-2022 . . Normal [facility] Comment on above: Result Comment: Perf ormed at: BA Performed By: #### 4 [id number] #### [facility] [address] [place] [address] Dr. Jacob Mcdaniel Age Gdln ACOG Testing 30-65 [facility] Comment on above: Performed By: #### 4 [id number] #### [facility] [address] [place] [address] Dr. Jacob Mcdaniel DIAGNOSIS: Comment [facility] Comment on above: Result Comment: NEGA TIVE FOR INTRAEPITHELIAL LESION OR MALIGNANCY. CELLULAR CHANGES ASSOCIATED WITH ATROPHY AND INFLAMMATION ARE PRESENT. Performed at: BA Performed By: #### 4 [id number] #### [facility] [address] [place] [address] Dr. Jacob Mcdaniel HPV Aptima Negative Normal Negative [facility] Comment on above: Result Comment: This nucleic acid amplification test detects fourteen high-risk HPV types (16,18,31,33,35,39,45,51,52,56,58,59,66,68) without differentiation. Performed at: =G Performed By: #### 4 [id number] #### [facility] [address] [place] [address] Dr. Jacob Mcdaniel Methodology: Comment [facility] Comment on above: Result Comment: This liquid based ThinPrep(R) pap test was screened with the use of an image guided system. Performed at: WB Performed By: #### 4 [id number] #### [facility] [address] [place] [address] Dr. Jacob Mcdaniel Note: Comment [facility] Comment on above: Result Comment: The Pap smear is a screening test designed to aid in the detection of premalignant and malignant conditions of the uterine cervix. It is not a diagnostic procedure and should not be used as the sole means of detecting cervical cancer. Both false-positive and false-negative reports do occur. . Performed at: WB Performed By: #### 4 [id number] #### [facility] [address] [place] [address] Dr. Jacob Mcdaniel Performed by: Comment Normal [facility] Comment on above: Result Comment: Codey Lorenzo, Hot Pond Operator (ASCP) Performed at: BA Performed By: #### 4 [id number] #### [facility] [address] [address] [address] Jacob Mcdaniel Specimen adequacy: Comment Normal [facility] Comment on above: Result Comment: Sati sfactory for evaluation. Endocervical and/or squamous metaplastic cells (endocervical component) are present. Performed at: BA Performed By: #### 4 [id number] #### [facility] [address] [address] [address] Jacob Mcdaniel AMYLASEon 09-25-2021 Amylase [Catalytic activity/Vol] 40 U/L Normal 25-115 [facility] Comment on above: Performed By: #### C MP, ZEYNEP, LIPA ####[facility] [address] [place] [address]DrDoron Mcdaniel CBC AUTO DIFFon 09-25-2021 BASO # 0.0 103/ul Normal 0.0-0.1 [facility] Comment on above: Performed By: #### C BC ####[facility] [address] [place] [address]DrDoron Mcdaniel Basophils/100 WBC (Bld) 0.6 % Normal 0.2-2.0 [facility] Comment on above: Performed By: #### C BC ####[facility] [address] [place] [address]DrDoron Mcdaniel EO # 0.1 103/ul Normal 0.0-0.7 [facility] Comment on above: Performed By: #### C BC ####[facility] [address] [place] [address]DrDoron Mcdaniel Eosinophils/100 WBC (Bld) 1.5 % Normal 0.9-7.0 [facility] Comment on above: Performed By: #### C BC ####[facility] [address] [place] [address]DrDoron Mcdaniel Erythrocyte distribution width (RBC) [Ratio] 12.2 % Normal 11.0-15.0 [facility] Comment on above: Performed By: #### C BC ####[facility] [address] [place] [address]Dr. Jacob Mcdaniel Hematocrit (Bld) [Volume fraction] 41.6 % Normal 36.0-48.0 [facility] Comment on above: Performed By: #### C BC ####[facility] [address] [place] [address]Dr. Jacob Mcdaniel Hemoglobin (Bld) [Mass/Vol] 13.8 g/dL Normal 12.0-16.0 [facility] Comment on above: Performed By: #### C BC ####[facility] [address] [place], [place] [address]Dr. Mitastar Mcdaniel IG # 0.01 10e3/ul Normal 0.00-0.03 [facility] Comment on above: Performed By: #### C BC ####[facility] [address] [place], [place] [address]Dr. Jacob Mcdaniel IG % 0.1 % Normal 0.0-0.5 [facility] Comment on above: Performed By: #### C BC ####[facility] [address] [place], [place] [address]DrDoron Jacob Jonas LYMPH # 2.8 103/ul Normal 1.2-3.8 [facility] Comment on above: Performed By: #### C BC ####[facility] [address] [place], [place] [address]DrDoron Mitastar Mcdaniel Lymphocytes/100 WBC (Bld) 40.1 % Normal 20.5-60.0 [facility] Comment on above: Performed By: #### C BC ####[facility] [address] [place], [place] [address]DrDoron Mitastar Mcdaniel MANUAL DIFF REQ NO Normal [facility] Comment on above: Performed By: #### C BC ####[facility] [address] [place], [place] [address]Dr. Jacob Mcdaniel MCH (RBC) [Entitic mass] 30.1 pg Normal 26.7-34.0 [facility] Comment on above: Performed By: #### C BC ####[facility] [address] [place] [id number]. Jacob Jonas MCHC (RBC) [Mass/Vol] 33.2 g/dL Normal 29.9-35.2 [facility] Comment on above: Performed By: #### C BC ####[facility] [address] [place] [id number] Mcdaniel MCV (RBC) [Entitic vol] 90.6 fL Normal 81.0-99.0 [facility] Comment on above: Performed By: #### C BC ####[facility] [address] [place], [place] [address]DrDoron Mcdaniel MONO # 0.5 103/ul Normal 0.3-0.8 [facility] Comment on above: Performed By: #### C BC ####[facility] [address] [place], [place] [address]DrDoron Mcdaniel Monocytes/100 WBC (Bld) 6.9 % Normal 1.7-12.0 [facility] Comment on above: Performed By: #### C BC ####[facility] [address] [place], [place] [address]DrDoron Mcdaniel NEUT # 3.5 103/ul Normal 1.4-6.5 [facility] Comment on above: Performed By: #### C BC ####[facility] [address] [place], [place] [address]DrDoron Mcdaniel Neutrophils/100 WBC (Bld) 50.8 % Normal 43.0-75.0 [facility] Comment on above: Performed By: #### C BC ####[facility] Q[address] [place], [place] [address]DrDoron Mcdaniel Platelet mean volume (Bld) [Entitic vol] 9.1 fL Critically low 9.5-13.5 [facility] Comment on above: Performed By: #### C BC ####[facility] [address] [place], [place] [address]DrDoron Mcdaniel PLT 279 103/ul Normal 150-450 [facility] Comment on above: Performed By: #### C BC ####[facility] [address] [place], [place] [address]Kl. Jacob Mcdaniel RBC 4.59 106/ul Normal 4.20-5.40 [facility] Comment on above: Performed By: #### C BC ####[facility] [address] [place], [place] [address]Tj. Jacob Mcdaniel WBC 6.9 103/ul Normal 4.0-11.0 [facility] Comment on above: Performed By: #### C BC ####[facility] [address] [place], [place] [address]Qu. Jacob Mcdaniel CT ABD/PELVIS WO CONon 09-25 [...] PATTI LOPEZ Date: 2021-09-25 18:01 Normal [facility] CULTURE URINEon 09-25-2021 CULTURE URINE Culture Observations : LIGHT GROWTH OF MIXED GENITAL BRANDT. NO POTENTIAL PATHOGENS SEEN. Normal [facility] Comment on above: Performed By: #### U RCX ####[facility] [address] [place], [place] [address]Av. Mitastar Mcdaniel Covid-19 PCR ([facility])on SARS-CoV-2 (COVID-19) RNA MATT+probe Ql (Unsp spec) Not detected Normal NOT DETECTED [facility] Comment on above: Result Comment: When [...] for this test is supported by the Dietetic Technician Registered of Health and Human Service's declaration that [...] be used). Performed By: #### C VDTBH ####[facility] [address] [place], [place] [address]Aa. Jacob Mcdaniel ER URINE PROFILEon 2 Bilirubin Ql (U) Negative Normal NEGATIVE The [facility] Comment on above: Performed By: #### E PEG SHAH UMICRO #### [facility] [address] [address] [address] Jacob Mcdaniel Clarity (U) CLEAR Normal CLEAR [facility] Comment on above: Performed By: #### E RUR, PREGU, UMICRO #### [facility] [address] [place] [address] Dr. Jacob Mcdaniel Color (U) LT. YELLOW Normal YELLOW [facility] Comment on above: Performed By: #### E RUR, PREGU, UMICRO #### [facility] [address] [address] [address] Jacob Mcdaniel ERUAHD A micrscopic examina tion will be performed if indicated. Normal [facility] Comment on above: Performed By: #### E RUR, PREGU, UMICRO #### [facility] [address] [place] [address] Dr. Jacob Mcdaniel Glucose Ql (U) Negative Normal NEGATIVE [facility] Comment on above: Performed By: #### E RUR, PREGU, UMICRO #### [facility] [address] [place] [address] Dr. Jacob Mcdaniel Hemoglobin Ql (U) Negative Normal NEGATIVE The [facility] Comment on above: Performed By: #### E RUR, PREGU, UMICRO #### [facility] [address] [place] [address] Dr. Jacob Mcdaniel Ketones Ql (U) Negative Normal NEGATIVE [facility] Comment on above: Performed By: #### E RUR, PREGU, UMICRO #### [facility] [address] [place] [address] Dr. Jacob Mcdaniel LEUKOCYTES MODERATE Abnormal NEGATIVE [facility] Comment on above: Performed By: #### E RUR, PREGU, UMICRO #### [facility] [address] [place] [address] Dr. Jacob Mcdaniel Nitrite Ql (U) Negative Normal NEGATIVE [facility] Comment on above: Performed By: #### E RUR, PREGU, UMICRO #### [facility] [address] [place] [address] Dr. Jacob Mcdaniel pH (U) 7.0 [pH] Normal 5-9 [facility] Comment on above: Performed By: #### PEG ROJO UMICRO #### [facility] [address] [address] [address] Jacob Mcdaniel SPEC GRAVITY 1.010 Normal 1.005-<=1.0 25 [facility] Comment on above: Performed By: #### PEG ROJO UMICRO #### [facility] [address] [address] [address] Jacob Mcdaniel UA PROTEIN Negative Normal NEGATIVE/ TRACE [facility] Comment on above: Performed By: #### PEG ROJO UMICRO #### [facility] [address] [place] [address] Dr. Jacob Mcdaniel UR MICRO IND INDICATED Normal [facility] Comment on above: Performed By: #### PEG ROJO UMICRO #### [facility] [address] [place] [address] Dr. Jacob Mcdaniel Urobilinogen Qn (U) 0.2 {Tessy'U}/dL Normal 0.2 - 1.0 [facility] Comment on above: Performed By: #### PEG ROJO UMICRO #### [facility] [address] [place] [address] Dr. Jacob Mcdaniel LIPASEon 09-25-2021 Lipase [Catalytic activity/Vol] 100.0 U/L Normal 73.0-393.0 [facility] Comment on above: Performed By: #### C MP, ZEYNEP, LIPA ####[facility] [address] [place] [address]Dr. Jacob Mcdaniel URon 09-25-2021 , QUAL Negative Normal NEGATIVE The [facility] Comment on above: Performed By: #### PEG ROJO UMICRO #### [facility] [address] [place] [address] Dr. Jacob Mcdaniel PROF 14(COMP METB)on 022 Albumin [Mass/Vol] 3.8 g/dL Normal 3.4-5.0 [facility] Comment on above: Performed By: #### C MP, ZEYNEP, LIPA ####[facility] [address] [place] [address]Dr. Jacob Jonas Albumin/Globulin [Mass ratio] 1.1 {ratio} Normal [facility] Comment on above: Performed By: #### C MP, ZEYNEP, LIPA ####[facility] [address] [place] [address]Dr. Jacob Jonas ALP [Catalytic activity/Vol] 76 U/L Normal 46-116 [facility] Comment on above: Performed By: #### C MP, ZEYNEP, LIPA ####[facility] [address] [place] [address]Dr. Mitastar Mcdaniel ALT [Catalytic activity/Vol] 43 U/L Normal 14-59 [facility] Comment on above: Performed By: #### C MP, ZEYNEP, LIPA ####[facility] [address] [place], [place] [address]Dr. Mitastar Mcdaniel Anion gap [Moles/Vol] 11.9 mmol/L Normal [facility] Comment on above: Performed By: #### C MP, ZEYNEP, LIPA ####[facility] [address] [place], [place] [address]Dr. Mitastar Mcdaniel AST [Catalytic activity/Vol] 24 U/L Normal 15-37 [facility] Comment on above: Performed By: #### C MP, ZEYNEP, LIPA ####[facility] [address] [place], [place] [address]Dr. Jacob Jonas Bilirubin [Mass/Vol] 0.3 mg/dL Normal 0.2-1.0 [facility] Comment on above: Performed By: #### C MP, ZEYNEP, LIPA ####[facility] [address] [place], [place] [address]Dr. Mitastar Mcdaniel Calcium [Mass/Vol] 8.6 mg/dL Normal 8.5-10.1 [facility] Comment on above: Performed By: #### C MP, ZEYNEP, LIPA ####[facility] [address] [place], [place] [address]Dr. Jacob Mcdaniel Chloride [Moles/Vol] 104 mmol/L Normal 98-107 [facility] Comment on above: Performed By: #### C ZEYNEP FAN LIPA ####[facility] [address] [place] [address]Dr. Jacob Mcdaniel CO2 [Moles/Vol] 27.7 mmol/L Normal 21.0-32.0 The [facility] Comment on above: Performed By: #### C ZEYNEP FAN LIPA ####[facility] [address] [place] [address]Dr. Jacob Mcdaniel Creatinine [Mass/Vol] 0.89 mg/dL Normal 0.55-1.02 [facility] Comment on above: Performed By: #### C ZEYNEP FAN LIPA ####[facility] [address] [place] [address]Dr. Jacob Mcdaniel EGFR-AF GABONESE >60 Normal >=60 The [facility] Comment on above: Performed By: #### C ZEYNEP FAN LIPA ####[facility] [address] [place] [address]Dr. Jacob Mcdaniel EGFR-NON AF GABONESE >60 Normal >=60 [facility] Comment on above: Performed By: #### C ZEYNEP FAN LIPA ####[facility] [address] [place] [address]Dr. Jacob Mcdaniel Globulin (S) [Mass/Vol] 3.5 g/dL Normal [facility] Comment on above: Performed By: #### C ZEYNEP FAN LIPA ####[facility] [address] [place] [address]Dr. Jacob Mcdaniel Glucose [Mass/Vol] 91 mg/dL Normal 74-106 [facility] Comment on above: Performed By: #### C ZEYNEP FAN LIPA ####[facility] [address] [place] [address]Dr. Jacob Mcdaniel Potassium [Moles/Vol] 3.6 mmol/L Normal 3.5-5.1 [facility] Comment on above: Performed By: #### C ZEYNEP FAN LIPA ####[facility] [address] [place] [address]Dr. Jacob Mcdaniel Protein [Mass/Vol] 7.3 g/dL Normal 6.4-8.2 [facility] Comment on above: Performed By: #### C MP, ZEYNEP, LIPA ####[facility] [address] [place] [address]Dr. Jacob Mcdaniel Sodium [Moles/Vol] 140 mmol/L Normal 136-145 [facility] Comment on above: Performed By: #### C MP, ZEYNEP, LIPA ####[facility] [address] [place] [address]Dr. Jacob Mcdaniel Urea nitrogen [Mass/Vol] 14.0 mg/dL Normal 7.0-18.0 [facility] Comment on above: Performed By: #### C MP, ZEYNEP, LIPA ####[facility] [address] [place] [address]Dr. Jacob Mcdaniel Urea nitrogen/Creatini ne [Mass ratio] 15.7 mg/mg Normal [facility] Comment on above: Performed By: #### C MP, ZEYNEP, LIPA ####[facility] [address] [place] [address]Dr. Jacob Mcdaniel URINE MICROSCOPIC ONLYon BACTERIA SMALL Abnormal NONE SEEN [facility] Comment on above: Performed By: #### PEG ROJO UMICRO #### [facility] [address] [address] [address] Jacob Mcdaniel Bacteria identified Cx Nom (U) INDICATED Normal [facility] Comment on above: Performed By: #### E RUR PREGU, UMICRO #### [facility] [address] [address] [address] Jacob Mcdaniel CAST NONE SEEN Normal NONE SEEN [facility] Comment on above: Performed By: #### E RUR PREGU, UMICRO #### [facility] [address] [address] [address] Jacob Mcdaniel Crystals LM Nom (Urine sed) NONE SEEN Normal NONE SEEN [facility] Comment on above: Performed By: #### E RUR, PREGU, UMICRO #### [facility] [address] [address] [address] Jacob Mcdaniel Epithelial cells LM Ql (Urine sed) FEW Abnormal NONE SEEN /RARE [facility] Comment on above: Performed By: #### E RUR, PREGU, UMICRO #### [facility] [address] [address] [address] Jacob Mcdaniel MUCOUS NONE SEEN Normal NONE SEEN [facility] Comment on above: Performed By: #### E RUR, PREGU, UMICRO #### [facility] [address] [address] [address] Jacob Mcdaniel RBC NONE SEEN Abnormal 0-2 [facility] Comment on above: Performed By: #### E RUR, PREGU, UMICRO #### [facility] [address] [address] [address] Jacob Mcdaniel WBC 10-20 Abnormal NONE SEEN [facility] Comment on above: Performed By: #### E RUR, PREGU, UMICRO #### [facility] [address] [address] [address] Jacob Mcdaniel XR lumbar spine AP/LAT/FLX/E XTon 07-29-2021 XR lumbar spine AP/LAT/FLX/EXT [facility] [place] [address] XRay Report Signed Patient: Tiera Wakefield MR#: [id number] 21 : 1970 Acct:[id number] Age/Sex: 50 / F ADM Date: 07/29/21 Loc: XD Room: Type: [facility] Attending Dr: Matteo Person MD Ordering [...] Aguilar Jr., D.ODoron07/29/2021 2:43 PM Dictation Location: [place] [address] Transcribed By: [facility] 07/29/21 1443 Dictated By: Wilson Aguilar Jr, DO 07/29/21 144 Signed By: 07/29/21 144 [facility] Operative Reporton 9 Operative Report MR#: [id number] S [facility] Pt. Name: Tiera Wakefield Room #: 0C Discharge Date: Birthdate: 1970 OPERATIVE REPORT DATE OF SURGERY: 12/01/2018 SURGEON: Lizbeth Fleming M.D. PREOPERATIVE DIAGNOSIS: Left shoulder rotator cuff tear. POSTOPERATIVE DIAGNOSIS: Left shoulder rotator cuff tear. METER INSTALLER AND REMOVER: Darinel Bartholomew M.D. ANESTHESIA: General. PROCEDURE PERFORMED: Left shoulder rotator cuff repair. INDICATIONS: The patient is a 48-year-old woman, who had previously had a rotator cuff repair performed by Dr. Melvin in [place]. I reviewed the intraoperative images and it [...] would be to remove her capitan grande band rotator cuff tendon and instead reconstruct with [...] Fleming M.D. Date Trans: 12/01/2018 11:50 A/cory [id number] cc: Gerald Tavares D.O. [address] [facility] [address] Normal The [facility] POC GLUCOSE LABon 12-01-2018 Glucose [Mass/Vol] 79 mg/dL Normal 70-100 [facility] Comment on above: Performed By: #### 8 5499 #### [facility] [address] POC URINE PREGNANCYon 2018 Beta HCG ( test) Ql (U) Negative Normal NEGATIVE [facility] Comment on above: Result Comment: Perf ormed in PACU Performed By: #### 8 4140 #### [facility] [address] MRI SHOULDER WO CONTRAST LEF Ton 08-18-2018 MRI SHOULDER WO CONTRAST LEFT [facility] Department of Radiology [address] [place] [id number] Patient Name: TIERA WAKEFIELD : 1970 Sex: F Age: Race: White Pt. Location: Patient Status: Ordered Date: 08/10/2018 12:00:00 PM Completed Date: 08/18/2018 07:41 AM Requesting Provider: LIZBETH FLEMING Attending Provider: Report Copy To: Signs & Symptoms: M75.122 Complete rotatr-cuff tear/ruptr of left shoulder, not trauma I10 History: Sula, Hardware left shoulder -new number npc mri [id number] / jake per shyam call ref # [id number] *er Comments: , , , Ordering Provider [...] 10. Electronically signed by:Peggy Winchester. Transcribed by: [email or web address], User Resident: Electronically Signed by: PEGGY WINCHESTER @ 08/18/2018 10:48 AM Normal The [facility] Comment on above: Order Comment: , , = ========= , Ordering Provider - LIZBETH FLEMING MD , CNOVon 03-16-2018 CNOV Office Visit (SPSNAV) ----TIERA WAKEFIELD ([id number]) 1970 FDate Time Provider Gokfvbsbbl15/27/18 2:55 PM Tahir ANN SPSNAV During your [...] in onemonth's time.Odalis Ahn Provider: ZORAIDA ALMANZAR [[id number]]Allergies As of Date: 03/16/2018 Noted Allergy ReactionASPIRIN [...] FOR* More...Follow-up and Disposition History RecordedEncounter Number: [id number] Status:Closed by Tahir ANN MD on 03/16/18 [facility] PROGRESSon 03-16-2018 Protein mass conc HNO ID: [id number] thor: Tahir Phillips: (none)Author Type: PhysicianType: Progress [...] fatmata in one month's time.Tahir Ann MD [facility] HISTORY PHYSICALon 8 HISTORY PHYSICAL HNO ID: [id number] thor: Sydney Reyna ([facility]) Marisol Hidalgo: (none)Author Type: Physician AssistantType: HANDPFiled: 02/18/2018 9:35 AMNote Text:LOCAL PROCEDURE HISTORY AND PHYSICAL EXAMSERVICE DATE: 02/18/2018SERVICE TIME: 9:34 AMProvisional Diagnosis/Treatment Plan: lumbar disc herniation/Right L5-Q5APVHKWmthrqhnyzRKP: This is a 47 year old female [...] February 18, 2018 : 9:34 AM PAGER: [phone] [facility] NURSING PROGon 02-18-2018 Protein mass conc HNO ID: [id number] thor: Christine (Rn) LAQUITA Downingervice: (none)Author Type: Registered NurseType: Nursing Progress NoteFiled: 02/18/2018 9:54 AMNote Text: Nursing Progress NotePatient Name: Tiera RegaladoN: [id number] Location: Endo/AV Endo Daily Note: 0946 - Pt arrived to post op awake, oriented x 3. Pt statespain has gone from 10/10 to 6/10 to right leg. Pt still having numbnessto right leg. Pedal push/pulls equal and strong. vSSThis note was completed by: Christine Downing RN Normal [facility] OPERATIVE NOon 02-18-2018 OPERATIVE NO HNO ID: [id number] thor: Zoraida Fine: (none)Author Type: PhysicianType: Operative ReportFiled: 02/18/2018 9:44 AMNote Text:Pt presents for f/u. Continues to have Rt leg pain. Appearsuncomfortable, seen by Dr. Ann for surgical eval. Wants to proceed withan injection today to address the presenting symptoms. Consent obtained.Rt side was marked in the pre-op area. Pt is aware of risks, benefits,alternatives, expected outcome, equipment and personnel.[facility] approved time out was performed identifying the site, side and levelof procedure prior to start of procedure.[facility] - ELECTIVE PROCEDURELumbar [...] I performed theentire procedure.Zoraida Almanzar DO, MBA [facility] PT EDon 02-18-2018 PT ED HNO ID: [id number] thor: Christine RojasRn) LAQUITA Downingervice: (none)Author Type: Registered NurseType: Patient EducationFiled: 02/18/2018 9:58 AMNote Text:POST OP LEARNING RESPONSEINSTRUCTION PROVIDED TO: PatientMETHOD OF INSTRUCTION: Written instruction - handoutsVerbal instructionPATIENT / FAMILY RESPONSE: Verbalizes understanding of: DENF-BSQBIVRIIIAWCZYJYFZWX-X orrect actions to take to reduce post procedurecomplicationsFOLLOW -UP PLAN: Complete - No need for follow-upSUPPLEMENTAL MATERIAL: NoneREFERRAL (RECOMMENDATION): NoneElectronically Signed By: Christine Downing RN In Department: PROCEDURES [facility] PT ED HNO ID: [id number] thor: Keely RojasRn) LAQUITA Dominguezervice: NursingAuthor Type: Registered NurseType: Patient EducationFiled: 02/18/2018 9:28 AMNote Text:PRE OP LEARNING ASSESSMENTPROCEDURE/SURGERY: PAIN MANAGEMENT: lumbar epiduralREADINESS TO LEARNCOGNITIVE ABILITY: Alert and orientedMOTIVATION TO LEARN: InterestedFAMILY SUPPORT: High - Very involved in pt carePATIENT LEARNS BEST BY: Individual InstructionVerbal InstructionFACTORS AFFECTING LEARNING: NonePHYSICAL LIMITATIONS AFFECTING LEARNING: NoneElectronically Signed By: Keely Dominguez RN [facility] (SPSNAV) ----[facility] WAKEFIELD ([id number]) 1970 [facility] Rxyuyqcaox15/30/18 1:55 PM Tahir ANN SPSNAV During your [...] is greater than in the backDERMATOMAL DISTRIBUTION:Right: [id number] STATUS: Minimal Ambulation/Wheelchair BoundANTIPLATELET OR ANTICOAGULATION STATUS: [...] suddenly. Her MRI shows a large extruded L5-K6tigadjyn.I think there is a high chance that this will resolve spontaneously withnonoperative care. To manage her symptoms in the short term she may benefitfrom an epidural injection. I will see her back in one month's time.Odalis Ahn Provider: ZORAIDA ALMANZAR [[id number]]Allergies As of Date: 02/16/2018 Noted Allergy ReactionASPIRIN [...] Status:Closed by Tahir ANN MD on 02/16/18 [facility] [place] 02-16-2018 TERENCE Telephone (NIQ) -TIERA WAKEFIELD ([id number]) 1970 FDate Time Provider Dhotqdwnym58/30/18 ZORAIDA ALMANZAR During your visit today, we [...] Epidural Steroid Injection [1061]Order(s):SURGICAL REQUEST - ELECTIVE [[id number]] Order #: [id number]: 1Prescriptions as of 02/16/2018 Sig: FLUTICASONE 100 [...] More... Status:Closed by AURA MARTIN on 02/16/18 [facility] HOSPon 02-16-2018 HOSP Patient:Aissatou Wakefield alcon AMRN: [...] the following basenames: K,HCTProgress Notes ([facility] REJ):Elaine Woodson, RN, RN 02/16/2018 4:33 PM SignedPatient Valerie saw Dr. Ann todaySherron is scheduled for an epidural injection sking for pain medication for relief prior to injectionReturn call to [phone] Griffin LPN 02/17/2018 9:21 AM SignedThe prescription you requested has been called in to Dr Tracy dejesus at [facility] to pt and advised.Pt verbalized understanding.Progress Notes ([facility]):Lisa Elizabeth 02/16/2018 1:54 PM SignedPt at check out scheduled for injection on 02/18/[address] Almanzar at 9AMRight L5-S1 TFESI-DM/-Walterll sign eddieiverTraalexia Martin 02/16/2018 2:49 PM SignedESR DONESolo Landen Mratin 02/16/2018 2:51 PM SignedEsr done [facility] PROGRESSon 02-16-2018 Protein mass conc HNO ID: [id number] thor: Tahir Phillips: (none)Author Type: PhysicianType: Progress [...] her back in one month'stime.Tahir Ann MD [facility] Protein mass conc HNO ID: [id number] thor: Tahir Phillips: (none)Author Type: PhysicianType: Progress [...] is greater than in the backDERMATOMAL DISTRIBUTION:Right: [id number] STATUS: Minimal Ambulation/Wheelchair BoundANTIPLATELET OR ANTICOAGULATION STATUS: [...] 2018 : 1:15 PM PAGER: Normal [facility] CNOVon 02-15-2018 CNOV Office Visit (SPNMAV) ----SONALTIERA Au ([id number]) 1970 [facility] Vbkdinmavb23/29/18 1:20 PM ZORAIDA ALMANZAR SPNMAV During your [...] side. [place] numeroustimes over past week.Other Issues Addressed at [...] Official reports pending.Loss of disc ht at L5/t7KMGZBXZWDG:See diagnosis.PLAN:Discussed various options including non-surgical and surgical [...] - Other: See CommentsDate Reviewed: 02/15/2018Reviewed by: Zoriada Almanzar - Fully AssessedReason for Visit: New Patient [172] Cmt: left sided low back painPrimary Visit Diagnosis:Lumbar disc herniation [M51.26] Other Visit Diagnoses:Radiculopathy, lumbar region [M54.16] Acute right-sided low back pain with right-sided sciatica [M54.41]Order(s):MRI LUMBAR SPINE WO IVCON [[id number]] Order #: [id number] FUTURE CONSULT TO SPINE SURGERY [[id number]] Order #: [id number]: 1Prescriptions as of 02/15/2018 Sig: FLUTICASONE 100 MCG-SALMETERO* Advair Diskus 100 mcg-50 mcg/* ALBUTEROL SULFATE 2.5 MG/3 ML* albuterol sulfate 2.5 mg/3 mL* BACLOFEN 10 MG TABLET CITALOPRAM 20 MG TABLET citalopram 20 mg tablet METHYLPREDNISOLONE 4 MG TABLE* METHYLPREDNISOLONE 4 MG TABLE* methylprednisolone 4 mg table*Problem List As Of Date: 02/15/2018(None) Status:Closed by ZORAIDA ALMANZAR DO on 02/15/18 Normal [facility] MRI LUMBAR SPINE WO IVCONon 02-15-2018 MRI LUMBAR SPINE WO IVCON * * *Final Report* * *DATE OF EXAM: Feb 15 2018 5:23PM [facility] 0303 - MRI LUMBAR SPINE WO [...] crest and assume there are 5 lumbar-type vertebrae.Welding Engineer: PRAFUL Transcribe Date/Time: Feb 15 2018 5:30PDictated by : GERALD MARK MDThis examination was interpreted and the report reviewed and electronically signed by: GERALD MARK MD on Feb 15 2018 5:35PM [id number] [facility] PROGRESSon 02-15-2018 Protein mass conc HNO ID: [id number] thor: Zoraida Fine: (none)Author Type: PhysicianType: Progress [...] on side. Hasbeen seen in ED in [place] numerous times over past week.Other Issues Addressed [...] Official reports pending.Loss of disc ht at L5/[id number]:See diagnosis.PLAN:Discussed various options including non-surgical and surgical [...] consulting/requestingphysici anMichael Almanzar DO, MBA Normal [facility] SR-XR Spine Lumbosacral 2 or 3 Views IMPORTon 02-12-2018 SR-XR Spine Lumbosacral 2 or 3 Views IMPORT Images were obtained outside of [facility] [id number] Normal [facility] Vital Signs Date Time Vital Sign Value Performing Clinician Facility 12-21-2024 13:17040 Body height 160 cm Jeanette BRAGG Work Phone: [facility] 12-21-2024 13:17-040 Body mass index (BMI) [Ratio] 28.7 kg/m2 Jeanette BRAGG Work Phone: [facility] 12-21-2024 13:17040 Body weight 73.48 kg Jeanette BRAGG Work Phone: [facility] 12-21-2024 13:17-040 Diastolic blood pressure 81 mm[Hg] Jeanette BRAGG Work Phone: [facility] 12-21-2024 13:17-040 Heart rate 84 /min Jeanette BRAGG Work Phone: [facility] 12-21-2024 13:17-0400 Respiratory rate 16 /min Jeanette Martinezne PA Work Phone: [facility] 12-21-2024 13:17-0400 SaO2% (BldA) [Mass fraction] 97 % Jeanette Martinezne PA Work Phone: [facility] 12-21-2024 13:17-0400 Systolic blood pressure 129 mm[Hg] Jeanette Martinezne PA Work Phone: [facility] 12-05-2024 14:42-0400 Body height [address] [facility] [address] [facility] 12-05-2024 14:42-0400 Body mass index (BMI) [Ratio] 29.05 kg/m2 [facility] 3 [facility] 12-05-2024 14:42-0400 Body weight 74.[address] [facility] 11-16-2024 08:28-0400 Body height 160 cm Danile Gold MD Work Phone: [facility] 11-16-2024 08:28-0400 Body mass index (BMI) [Ratio] 28.95 kg/m2 Daniel Gold MD Work Phone: [facility] 11-16-2024 08:28-0400 Body weight 74.12 kg Daniel Gold MD Work Phone: [facility] 10-10-2024 11:22-0400 Body mass index (BMI) [Ratio] 28.72 kg/m2 Herb Lizy DO Work Phone: [facility] 10-10-2024 11:22-0400 Body weight 73.54 kg Herb Lizy DO Work Phone: [facility] 10-10-2024 11:22-0400 Diastolic blood pressure 72 mm[Hg] Herb Lizy DO Work Phone: [facility] 10-10-2024 11:22-0400 Systolic blood pressure 120 mm[Hg] Herb Lizy DO Work Phone: [facility] 08-16-2024 14:40-0400 Body height 160 cm Ubaldo Biedengurdeep DO Work Phone: [facility] 08-16-2024 14:40-0400 Body mass index (BMI) [Ratio] 28.34 kg/m2 Ubaldo Biedenbach DO Work Phone: [facility] 08-16-2024 14:40-0400 Body weight 72.58 kg Ubaldo Booneedenbach DO Work Phone: [facility] 07-13-2024 09:56-0400 Body height 160 cm Jeanette Tijerina PA Work Phone: [facility] 07-13-2024 09:56-0400 Body mass index (BMI) [Ratio] 29.16 kg/m2 [facility] 07-13-2024 09:56-0400 Body temperature 98.29 [degF] [facility] 07-13-2024 09:56-0400 Body weight 74.66 kg Jeanette Tijerina PA Work Phone: [facility] 07-13-2024 09:56-0400 Diastolic blood pressure 84 mm[Hg] [facility] 07-13-2024 09:56-0400 Heart rate 64 /min [facility] 07-13-2024 09:56-0400 Respiratory rate 16 /min [facility] 07-13-2024 09:56-0400 SaO2% (BldA) [Mass fraction] 99 % [facility] 07-13-2024 09:56-0400 Systolic blood pressure 142 mm[Hg] [facility] 06-29-2024 15:03-0400 Body mass index (BMI) [Ratio] 29.05 kg/m2 [facility] 06-29-2024 15:03-0400 Body temperature 97.59 [degF] Jeanette Martinezne PA Work Phone: [facility] 06-29-2024 15:03-0400 Body weight 74.39 kg Jeanette Martinezne PA Work Phone: [facility] 06-29-2024 15:03-0400 Diastolic blood pressure 71 mm[Hg] Jeanette Martinezne PA Work Phone: [facility] 06-29-2024 15:03-0400 Heart rate 61 /min Jeanette Martinezne PA Work Phone: [facility] 06-29-2024 15:03-0400 SaO2% (BldA) [Mass fraction] 99 % Jeanette Tijerina PA Work Phone: [facility] 06-29-2024 15:03-0400 Systolic blood pressure 130 mm[Hg] Jeanette Martinezne PA Work Phone: [facility] 06-21-2024 14:09-0500 Body height 160 cm Ubaldo Awilda DO Work Phone: [facility] 06-21-2024 14:09-0500 Body mass index (BMI) [Ratio] 28.34 kg/m2 Ubaldo Sewellgurdeep DO Work Phone: [facility] 06-21-2024 14:09-0500 Body weight 72.58 kg Ubaldo Paolomyragallo DO Work Phone: [facility] 06-10-2024 10:37-0500 Body height 160 cm [facility] [address] [place] [address] [facility] 06-10-2024 10:37-0500 Body mass index (BMI) [Ratio] 28.74 kg/m2 [facility] 06-10-2024 10:37-0500 Body temperature 98.4 [degF] [facility] 6 [facility] 06-10-2024 10:37-0500 Body weight 73.[address] [facility] 06-10-2024 10:37-0500 Diastolic blood pressure 87 mm[Hg] [facility] 6 [facility] 06-10-2024 10:37-0500 Heart rate 67 /min [facility] 6 [facility] 06-10-2024 10:37-0500 Respiratory rate 14 /min [facility] 6 [facility] 06-10-2024 10:37-0500 SaO2% (BldA) [Mass fraction] 96 % [facility] 06-10-2024 10:37-0500 Systolic blood pressure 122 mm[Hg] [facility] 6 [facility] 06-08-2024 10:16-0500 Body mass index (BMI) [Ratio] 28.91 kg/m2 Daniel Gold MD Work Phone: [facility] 06-08-2024 10:16-0500 Body weight 74.03 kg Daniel Gold MD Work Phone: [facility] 05-24-2024 14:12-0500 Body mass index (BMI) [Ratio] 29.05 kg/m2 Zeynep BRAGG Work Phone: [facility] 05-24-2024 14:12-0500 Body weight 74.39 kg Zeynep BRAGG Work Phone: [facility] 05-24-2024 14:12-0500 Diastolic blood pressure 76 mm[Hg] Zeynep BRAGG Work Phone: [facility] 05-24-2024 14:12-0500 Systolic blood pressure 120 mm[Hg] Zeynep BRAGG Work Phone: [facility] 12-29-2023 20:04-0400 Body temperature 97.7 [degF] [facility] 12-29-2023 20:04-0400 Diastolic blood pressure 92 mm[Hg] [facility] 12-29-2023 20:04-0400 Heart rate 62 /min [facility] 12-29-2023 20:04-0400 Respiratory rate 18 /min [facility] 12-29-2023 20:04-0400 SaO2% (BldA) [Mass fraction] 97 % [facility] 12-29-2023 20:04-0400 Systolic blood pressure 150 mm[Hg] [facility] 12-23-2023 09:37-0400 Body mass index (BMI) [Ratio] 28.87 kg/m2 Ben De Leon DO Work Phone: [facility] 12-23-2023 09:37-0400 Body temperature 98.01 [degF] Ben De Leon DO Work Phone: [facility] 12-23-2023 09:37-0400 Body weight 73.94 kg Ben De Leon DO Work Phone: [facility] 12-23-2023 09:37-0400 Diastolic blood pressure 70 mm[Hg] Ben De Leon DO Work Phone: [facility] 12-23-2023 09:37-0400 Heart rate 68 /min Ben De Leon DO Work Phone: [facility] 12-23-2023 09:37-0400 SaO2% (BldA) [Mass fraction] 98 % Ben De Leon DO Work Phone: [facility] 12-23-2023 09:37-0400 Systolic blood pressure 110 mm[Hg] Ben De Leon DO Work Phone: [facility] 11-16-2023 15:55-0400 Body height 161.29 cm [facility] 11-16-2023 15:55-0400 Body mass index (BMI) [Ratio] 28.4 kg/m2 [facility] 11-16-2023 15:55-0400 Body temperature 98.4 [degF] [facility] 11-16-2023 15:55-0400 Body weight 73.93 kg [facility] 11-16-2023 15:55-0400 Heart rate 63 /min [facility] 11-16-2023 15:55-0400 Respiratory rate 18 /min [facility] 11-16-2023 15:55-0400 SaO2% (BldA) [Mass fraction] 98 % [facility] 08-04-2023 14:46-0400 Blood Pressure Location Anna Casonmetz [facility] 08-04-2023 14:46-0400 Body temperature 97.52 [degF] Anna Sonya [facility] 08-04-2023 14:46-0400 Diastolic blood pressure 70 mm[Hg] Anna Sonya [facility] 08-04-2023 14:46-0400 Heart rate 84 /min Anna Sonya [facility] 08-04-2023 14:46-0400 Systolic blood pressure 113 mm[Hg] Anna Sonya [facility] 05-19-2023 08:50-0500 Blood Pressure Location Anna Sonya [facility] 05-19-2023 08:50-0500 Body temperature 96.8 [degF] Anna Sonya [facility] 05-19-2023 08:50-0500 Diastolic blood pressure 76 mm[Hg] Anna Sonya [facility] 05-19-2023 08:50-0500 Heart rate 62 /min Anna Hassan [facility] 05-19-2023 08:50-0500 Systolic blood pressure 120 mm[Hg] Anna Hassan [facility] 02-18-2023 10:30-0400 Body height 161.29 cm Christina Rameymond Other [facility] 02-18-2023 10:30-0400 Body mass index (BMI) [Ratio] 27.9 kg/m2 Christina Rameymond Other [facility] Other 02-18-2023 10:30-0400 Body temperature 98.2 [degF] Christina Nan Other [facility] Other 02-18-2023 10:30-0400 Body weight 72.58 kg Christina Montana Other [facility] Other 02-18-2023 10:30-0400 Diastolic blood pressure 78 mm[Hg] Christina Rameymond Other [facility] Other 02-18-2023 10:30-0400 Respiratory rate 18 /min Christina Nan Other [facility] Other 02-18-2023 10:30-0400 SaO2% (BldA) [Mass fraction] 98 % Christina Nan Other [facility] Other 02-18-2023 10:30-0400 Systolic blood pressure 134 mm[Hg] Christina Nan Other [facility] Other 12-20-2022 11:40-0400 Body height 161.29 cm Christina Montana Other [facility] Other 12-20-2022 11:40-0400 Body mass index (BMI) [Ratio] 27.55 kg/m2 Christina Montana Other [facility] Other 12-20-2022 11:40-0400 Body temperature 97 [degF] Christina Montana Other [facility] Other 12-20-2022 11:40-0400 Body weight 71.67 kg Christina Montana Other [facility] Other 12-20-2022 11:40-0400 Diastolic blood pressure 79 mm[Hg] Christina Montana Other [facility] Other 12-20-2022 11:40-0400 SaO2% (BldA) [Mass fraction] 98 % Christina Montana Other [facility] Other 12-20-2022 11:40-0400 Systolic blood pressure 142 mm[Hg] Christina Montana Other [facility] Other 11-17-2022 15:48-0400 Blood Pressure Location Anna Hassan [facility] 11-17-2022 15:48-0400 Body temperature 97.16 [degF] Anna Hassan [facility] 11-17-2022 15:48-0400 Diastolic blood pressure 75 mm[Hg] Anna Hassan [facility] 11-17-2022 15:48-0400 Heart rate 63 /min Anna Hassan [facility] 11-17-2022 15:48-0400 Systolic blood pressure 124 mm[Hg] Anna Hassan [facility] 07-26-2021 11:45-0400 Body height 161.29 cm Matteo Raza Other [facility] Other 07-26-2021 11:45-0400 Body mass index (BMI) [Ratio] 28.94 kg/m2 Matteosavita Person Other [facility] Other 07-26-2021 11:45-0400 Body weight 75.3 kg Matteosavita Person Other [facility] Other 07-26-2021 11:45-0400 Diastolic blood pressure 80 mm[Hg] Matteo Person Other [facility] Other 07-26-2021 11:45-0400 SaO2% (BldA) [Mass fraction] 99 % Matteo Raza Other [facility] Other 07-26-2021 11:45-0400 Systolic blood pressure 120 mm[Hg] Matteosavita Person Other [facility] Other Encounters Encounter Date Encounter Type Care Provider Facility Start: 12-21-2024 End: 12-21-2024 Postop follow up visit related to original px Jeanette BRAGG Work Phone: Maggy Romero [facility] - Medical Oncology Comment on above: Encounter for postop erative care (Primary Dx) Start: 12-21-2024 End: 12-21-2024 ambulatory JEANETTE TIJERINA [facility] Start: 12-16-2024 End: 12-16-2024 Evaluation and management of inpatient DANIEL Landen [facility] Start: 12-12-2024 ambulatory DANIEL GOLD [facility] Start: 12-05-2024 End: 12-05-2024 Evaluation and management of inpatient GERALD TAVARES [facility] Start: 11-24-2024 End: 11-24-2024 ambulatory [facility] Start: 11-18-2024 End: 12-05-2024 Admission to [facility] Phone Call Provider 3 [facility] Start: 11-17-2024 End: 11-17-2024 Orders Only Daniel Gold MD Work Phone: [facility], A Department of [facility] Comment on above: Bartholin cyst (Prim jenny Dx); Preop testing Start: 11-17-2024 End: 11-17-2024 Patient encounter status Daniel Gold MD Work Phone: [facility] Start: 11-16-2024 End: 11-16-2024 Office outpatient visit 25 minutes Daniel Gold MD Work Phone: [facility], A Department of [facility] Comment on above: Bartholin cyst (Prim jenny Dx) Start: 11-16-2024 End: 11-16-2024 ambulatory DANIEL GOLD [facility] Start: 10-10-2024 End: 10-10-2024 Bamboo flowsheet [...] 10-04-2024 End: 10-04-2024 ambulatory MD Jagjit Parra Facility:[facility] Start: 10-04-2024 End: 10-04-2024 Patient encounter procedure LYDIA [facility] Start: 08-16-2024 End: 08-16-2024 Office outpatient visit 25 minutes Ubaldo Kaiser DO Work Phone: [facility] Comment on above: Family history of an eurysm (Primary Dx); Pulsatile tinnitus; Sensorineural hearing loss (SNHL) of right ear, unspecified hearing status on contralateral side Start: 08-16-2024 End: 08-16-2024 ambulatory UBALDO KAISER Not Available Start: 08-16-2024 End: 08-16-2024 Bamboo flowsheet Ubaldo Kaiser DO Work Phone: [facility] Start: 08-16-2024 End: 08-16-2024 Bamboo flowsheet Ubaldo Kaiser DO Work Phone: [facility] Start: 07-13-2024 End: 07-13-2024 Office outpatient visit 15 minutes Jeanette BRAGG Work Phone: Maggy Hernandez [facility] - Medical Oncology Comment on above: Encounter for postop erative care (Primary Dx); Dyspareunia, female Start: 07-13-2024 End: 07-13-2024 ambulatory [facility] Start: 07-08-2024 End: 07-08-2024 ambulatory Matthew Carrasco Facility:[facility] Start: 06-29-2024 End: 06-29-2024 Postop follow up visit related to original px Jeanette BRAGG Work Phone: Maggy Hernandez [facility] - Medical Oncology Comment on above: Encounter for postop erative care (Primary Dx); Post-op pain Start: 06-29-2024 End: 06-29-2024 ambulatory [facility] Start: 06-29-2024 End: 06-29-2024 Telephone encounter Regina Monsivais RN [facility], A Department of [facility] Start: 06-25-2024 End: 06-25-2024 Telephone encounter Neeta Arnold [facility] Call Linda haro Comment on above: Post-op Problem Start: 06-23-2024 End: 06-23-2024 Evaluation and management of inpatient ELIS PALMA [facility] Start: 06-23-2024 End: 06-23-2024 Evaluation and management of inpatient DANIEL GOLD [facility] Start: 06-21-2024 End: 06-21-2024 ambulatory UBALDO KAISER Not Available Start: 06-21-2024 End: 06-21-2024 Bamboo flowsheet Ubaldo Kaiser DO [facility] Start: 06-21-2024 End: 06-21-2024 Bamboo flowsheet Ubaldo Kaiser DO Work Phone: [facility] Start: 06-21-2024 End: 06-21-2024 Office outpatient new 45 minutes Ubaldo Kaiser DO Work Phone: [facility] Comment on above: Sensorineural hearin g loss (SNHL) of right ear, unspecified hearing status on contralateral side (Primary Dx); Pulsatile tinnitus; Tinnitus, unspecified laterality Start: 06-15-2024 End: 06-15-2024 Bamboo flowsheet Florence Howard AUD Work Phone: [facility] Start: 06-15-2024 End: 06-15-2024 Bamboo flowsheet Florence Howard AUD Work Phone: [facility] Start: 06-15-2024 End: 06-15-2024 Patient encounter procedure Florence Howard AUD Work Phone: [facility] Comment on above: Sensorineural hearin g loss, bilateral (Primary Dx); Right-sided tinnitus Start: 06-15-2024 End: 06-15-2024 ambulatory FLORENCE HOWARD Not Available Start: 06-10-2024 ambulatory GERALD TAVARES [facility] Start: 06-10-2024 End: 06-10-2024 Patient encounter procedure [facility] Provider 6 [facility] Comment on above: Bartholin cyst; Preop testing Start: 06-10-2024 End: 06-10-2024 Patient encounter status [facility] Start: 06-10-2024 End: 06-10-2024 ambulatory [facility] Start: 06-10-2024 Encounter for other preprocedural examination [facility] Start: 06-09-2024 End: 06-09-2024 Orders Only Daniel Gold MD Work Phone: [facility], A Department of [facility] Comment on above: Bartholin cyst (Prim jenny Dx); Preop testing Start: 06-09-2024 End: 06-09-2024 Patient encounter status Daniel Gold MD Work Phone: [facility] Start: 06-08-2024 End: 06-08-2024 ambulatory [facility] Start: 06-08-2024 End: 06-08-2024 Office outpatient new 60 minutes Daniel Gold MD Work Phone: [facility], A Department of [facility] Comment on above: Bartholin cyst (Prim [...] Emergency department patient visit Manav [facility] Start: 12-23-2023 End: 12-23-2023 ambulatory BEN DE LEON Not Available Start: 12-23-2023 End: 12-23-2023 Office outpatient new 45 minutes Ben De Leon DO Work Phone: [facility] Comment on above: Puncture wound of ri ght foot, initial encounter (Primary Dx) Start: 11-16-2023 End: 11-16-2023 ambulatory [facility] Work Phone: Start: 11-16-2023 End: 11-16-2023 Patient encounter procedure [facility] Work Phone: Start: 09-07-2023 End: 09-07-2023 Patient encounter procedure Elina Boyer [facility] Start: 08-04-2023 End: 08-04-2023 Patient encounter procedure Anna Hassan [facility] Start: 07-14-2023 End: 07-14-2023 Lab Drop off Matthew Carrasco [facility] Start: 05-19-2023 End: 05-19-2023 Patient encounter procedure Anna A Sonya [facility] Start: 05-12-2023 End: 05-12-2023 Lab Drop off Matthew Carrasco [facility] Start: 02-18-2023 End: 02-18-2023 ambulatory Christina Nan Other [facility] Other Start: 02-18-2023 Office outpatient vi sit 15 minutes Christina Nan [facility] Start: 12-20-2022 End: 12-20-2022 ambulatory Christina Nan Other [facility] Other Start: 12-20-2022 Office outpatient vi sit 15 minutes Christina Nan [facility] Start: 12-01-2022 End: 12-01-2022 Patient encounter procedure Anna Hassan [facility] Start: 11-17-2022 End: 11-17-2022 Patient encounter procedure Anna Robert Hassan [facility] Start: 07-18-2022 End: 07-18-2022 Patient encounter procedure Anna Robert Hassan [facility] Start: 06-05-2022 Encounter for genera l adult medical examination without abnormal findings DR GERALD TAVARES [facility] Start: 06-04-2022 End: 06-05-[address] HERB MEDEL Facility: Start: 06-04-2022 End: 06-05-2022 Encounter for general adult medical examination without abnormal findings DR GERALD TAVARES Facility:[facility] Start: 05-30-2022 End: 05-30-[address] LIZBETH TANG Facility:[facility] Start: 01-22-2022 End: 01-22-[address] GERALD TAVARES Facility:[facility] Start: 09-25-2021 End: 09-26-[address] DERIK LLOYD Facility:[facility] Start: 08-22-2021 (Procedure) Short Matteo Person [facility] Start: 08-22-2021 End: 08-22-2021 ambulatory Matteo Person Other [facility] Other Start: 08-12-2021 End: 08-12-2021 ambulatory Matteo Raza Other [facility] Other Start: 08-12-2021 Telephone encounter Matteo Raza [facility] Start: 07-30-2021 End: 07-30-2021 ambulatory Matteo Raza Other [facility] Other Start: 07-30-2021 Telephone encounter Matteo Raza [facility] Start: 07-26-2021 End: 07-26-2021 ambulatory Matteo Raza Other [facility] Other Start: 07-26-2021 Office outpatient vi sit 25 minutes Matteo Raza [facility] [place] Start: 12-01-2018 End: 12-02-2018 Patient encounter procedure LIZBETH FLEMING Facility:[facility] Start: 03-16-2018 End: 03-17-2018 Patient encounter procedure Tahir ANN [facility] Start: 02-18-2018 End: 02-18-2018 Patient encounter procedure [facility] Start: 02-16-2018 End: 02-17-2018 Patient encounter procedure Tahir ANN [facility] Start: 02-15-2018 Patient encounter procedure [facility] Start: 02-15-2018 End: 02-15-2018 Patient encounter procedure [facility] Procedures Date Procedure Procedure Detail Performing Clinician Start: 11-16-2024 Follow-up visit Follow-up DANIEL GOLD Start: 07-13-2024 Follow-up visit Follow-up JEANETTE TIJERINA Start: 06-15-2024 AUDITORY FUNCTION TESTS Florence SOOD Work Phone: Start: 06-10-2024 Comprehensive metabolic panel Daniel burciaga MD Work Phone: Start: 05-24-2024 IGP,APTIMA HPV,AGE GDLN Zeynep [place] PA Work Phone: Start: 05-24-2024 Microscopic observation [...] Work Phone: Start: 05-02-2021 Colonoscopy Ben De Leno DO Work Phone: Start: 05-02-2021 Colonoscopy Anna Hassan Start: 12-01-2018 ANESTH SURGERY OF SHOULDER EDISON PITROD A Start: 12-01-2018 Arthroscopy shoulder rotator cuff repair LIZBETH FLEMING Anxiety disorder (disorder) Anna Hassan Arthroscopy of knee Anna Nolan Cholecystectomy Anna yee Colonoscopy Anna Casonmetz Dilation and curettage of uterus Anna Hassan Deliv Esophagogastroduoden oscopy gastric outlet reduction Anna Hassan Excision of Bartholin's cyst Anna Hassan Gastroesophageal ref lux disease (disorder) Anna Hassan History of - migrain e (context-dependent category) Anna Hassan History of operative procedure on shoulder Anna Hassan History of operative procedure on shoulder Annasanto Hassan Comment on above: X7 Irregular periods (finding) Annasanto Hassan Deliv Labial cyst (disorder) Anna Hassan Deliv Laparoscopic cholecystectomy Anna Hassan Deliv 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 Start: 05-12-2033 Screening for malign ant neoplasm of colon [facility] Start: 05-02-2031 Screening for malign ant neoplasm of colon [facility] Start: 04-27-2028 Screening for malign ant neoplasm of cervix [facility] Start: 05-24-2027 Screening for malign ant neoplasm of cervix Pap Smear [facility] Start: 04-27-2026 Screening for malign ant neoplasm of cervix Pap Smear [facility] Start: 12-21-2025 Adult BMI Screening Adult BMI Screen ing [facility] Start: 12-21-2025 Tobacco Screening Tobacco Screening [facility] Start: 11-16-2025 Adult BMI Screening Adult BMI Screen ing [facility] Start: 07-13-2025 Adult BMI Screening Adult BMI Screen ing [facility] Start: 07-13-2025 Tobacco Screening Tobacco Screening [facility] Start: 06-29-2025 Adult BMI Screening Adult BMI Screen ing [facility] Start: 06-23-2025 Adult BMI Screening Adult BMI Screen ing [facility] Start: 06-23-2025 Tobacco Screening Tobacco Screening [facility] Start: 06-10-2025 Adult BMI Screening Adult BMI Screen ing [facility] Start: 06-10-2025 Tobacco Screening Tobacco Screening [facility] Start: 06-08-2025 Adult BMI Screening Adult BMI Screen ing [facility] Start: 12-21-2024 End: 12-21-2024 Patient encounter procedure 12/21/2024 1:30 PM EDT Office Visit Maggy Hernandez [facility] - Medical Oncology [facility] [place] [phone] Jeanette Tijerina PA [address] [place] [address] Maggy Hernandez [facility] Start: 12-19-2024 COVID-19 Vaccine ( season) COVID-19 Vaccine ( season) [facility] Start: 12-19-2024 Influenza vaccination N [facility] Start: 12-16-2024 End: 12-16-2024 Admission to same day surgery center 12/16/2024 10:45 AM EDT - 12/16/2024 12:00 PM EDT Surgery [facility] - Surgery [address] [place] [address] Daniel Gold MD [address] [facility] [place] [address] EXCISION LESION VULVA - WIDE LOCAL [facility] Division [facility] - Surgery Comment on above: EXCISION LESION VULV A - WIDE LOCAL Start: 12-16-2024 End: 12-16-2024 EXCISION LESION VULVA EXCISION LESION VULVA RECURRENT BARTHOLINS GLAND ABSCESS RIGHT 12/16/2024 10:[address] [facility] Start: 12-16-2024 Subsequent hospital visit by physician 12/16/2024 10:45 AM EDT Hospital Encounter [facility] Surgery [address] [place] [phone] [place] [address] [place] [address], [address] [facility] [place] [id number] [facility] Start: 12-16-2024 End: 12-16-2024 Admission to same day surgery center 12/16/2024 7:30 AM EDT - 12/16/2024 8:45 AM EDT Surgery [facility] [address] [place] [address] [place] [address] [place] [address], [address] [place], [place] [id number] EXCISION LESION VULVA - WIDE LOCAL [facility] Surgery Comment on above: EXCISION LESION VULV A - WIDE LOCAL Start: 12-16-2024 End: 12-16-2024 EXCISION LESION VULVA EXCISION LESION VULVA RECURRENT BARTHOLINS GLAND ABSCESS RIGHT 12/16/2024 7:[address] [facility] Start: 12-16-2024 Subsequent hospital visit by physician 12/16/2024 7:30 AM EDT Hospital Encounter [facility] Surgery [address] [place] [phone] [place] [address] [place] [address], [address] [place], [place] [id number] [facility] Start: 11-18-2024 End: 11-18-2024 Admission to establishment 11/18/2024 3:45 PM EDT [facility] On [address] [address] [facility] On [facility] Start: 10-10-2024 End: 10-10-2024 Patient encounter procedure 10/10/2024 11:20 AM EDT Office Visit [facility] [address] [facility] [place] [phone] Herb Medel, DO [address] [place] [address] Arrived [facility] Comment on above: Arrived Start: 08-16-2024 End: 08-16-2024 Patient encounter procedure 08/16/2024 3:30 PM EDT Office Visit [facility] [place] [address] [place] [address] Ubaldo Kaiser, DO [address] [place] [address] Arrived [facility] [place] Comment on [...] Hernandez [facility] [address] [place] [address] Jeanette Tijerina PA [address] [place] [address] Maggy Hernandez [facility] Start: 07-12-2024 End: 07-12-2024 Patient encounter procedure 07/12/2024 8:30 AM EDT Office Visit [facility] [address] [facility] [place] [phone] Herb Medel DO [address] [place] [address] [facility] Start: 07-06-2024 End: 07-06-2024 Patient encounter procedure 07/06/2024 1:30 PM EDT Office Visit Maggy Romero Angelina [facility] Oncology [address] [place] [address] Jeanette Tijerina PA [address] [place] [address] Maggy Romero Angelina [facility] Start: 06-29-2024 End: 06-29-2024 Patient encounter procedure 06/29/2024 3:00 PM EDT Office Visit Maggy Romero Angelina [facility] [address] [place] [address] Jeanette Tijerina PA [address] [place] [address] Maggy L Angelina [facility] Start: 06-23-2024 End: 06-23-2024 Admission to same day surgery center 06/23/2024 7:30 AM EST - 06/23/2024 9:15 AM EST Surgery [facility] Division [facility] - Surgery [facility] [place] [address] Daniel Gold MD [address] [facility] [facility] [place] [address] EXCISION CYST BARTHOLIN [95469 (CPT )] [facility] - Surgery Comment on above: EXCISION CYST BARTHO RUBI [82124 (CPT )] Start: 06-23-2024 End: 06-23-2024 Exc bartholins gland/cyst EXCISION CYST BARTHOLIN Abscess of Bartholin gland 06/23/2024 7:30 AM EST [facility] Start: 06-23-2024 Subsequent hospital visit by physician 06/23/2024 7:30 AM EST Hospital Encounter [facility] - Surgery [address] [place] [address] Daniel Gold MD [address] [facility] [place] [address] [facility] - Surgery Start: 06-21-2024 End: 06-21-2024 Patient encounter procedure 06/21/2024 2:00 PM EST [facility] [address] [place] [phone] Ubaldo Kaiser, DO [address] [facility] [place] [address] [facility] [place] Start: 06-21-2024 End: 06-21-2026 US Heart Transthoracic Transthoracic Echo (TTE) Complete Echocardiography Routine Pulsatile tinnitus Expected: 06/21/2024 (Approximate), Expires: 06/21/2026 [facility] Work Phone: Comment on above: Expected: 06/21/2024 (Approximate), Expires: 06/21/2026 Start: 06-15-2024 End: 06-15-2024 Patient encounter procedure 06/15/2024 1:45 PM EST Office Visit [facility] [address] [place] [address] Florence Howard, AUD [address] [place] [address] Arrived [facility] Comment on above: Arrived Start: 06-13-2024 End: 06-13-2024 Patient encounter procedure 06/13/2024 10:45 AM EST Office Visit [facility] [address] [place] [phone] Florence Howard S, AUD [address] [place] [address] [facility] Start: 06-10-2024 End: 06-10-2024 Patient encounter procedure 06/10/2024 10:30 AM EST [facility] On [address] [address] [facility] On [facility] Start: 06-09-2024 End: 06-09-2025 XR Chest PA and Lateral X-ray chest 2 views Imaging Routine Bartholin cyst Preop testing Expected: 06/09/2024, Expires: 06/09/2025 [facility] Comment on above: Expected: 06/09/2024 , Expires: 06/09/2025 Start: 05-24-2024 End: 07-22-2025 MG Breast - bilateral Screening Bilateral screening mammogram Imaging Routine Encounter for screening mammogram for malignant neoplasm of breast Expected: 05/24/2024, Expires: 07/22/2025 [facility] Work Phone: Comment on above: Expected: 05/24/2024 , Expires: 07/22/2025 Start: 05-24-2024 End: 05-24-2024 Patient encounter procedure 05/24/2024 1:50 PM EST Office Visit [facility] [address] [facility] [place] [address] Zeynep Barbour PA [address] [place], [place] [address] Arrived [facility] Comment on above: Arrived Start: 05-02-2024 End: 05-02-2024 Patient encounter procedure 05/02/2024 9:00 AM EST Office Visit [facility] [address] [facility] [place] [address] Herb Medel DO [address] [place] [address] [facility] Start: 12-20-2023 COVID-19 Vaccine ( season) COVID-19 Vaccine ( season) [facility] Start: 12-20-2023 Influenza vaccination N [facility] Start: 06-04-2023 Screening for malign ant neoplasm of breast Mammogram [facility] Start: 10-20-2019 Administration of varicella zoster vaccine Zoster (Shingles) Vaccine (1 of 2) [facility] Start: 10-20-1987 Adult BMI Follow Up Plan Adult BMI F ollow Up Plan [facility] Start: 1981 Depression Screening Depression Scre ening [facility] Start: 1981 Tobacco Screening Tobacco Screening [facility] Start: 1969 Screening for malign ant neoplasm of colon [facility] End: 06-09-2025 CBC W Auto Differential panel - Blood CBC with auto diff Lab Routine Bartholin cyst Preop testing 1 Occurrences starting 06/09/2024 until 06/09/2025 [facility] Work Phone: Comment on above: 1 Occurrences starti ng 06/09/2024 until 06/09/2025 End: 11-17-2025 CBC W Auto Differential panel - Blood CBC with auto diff Lab Routine Bartholin cyst Preop testing 1 Occurrences starting 11/17/2024 until 11/17/2025 [facility] Work Phone: Comment on above: 1 Occurrences starti ng 11/17/2024 until 11/17/2025 End: 06-09-2025 Comprehensive metabolic 2000 panel - Serum or Plasma Comprehensive metabolic panel Lab Routine Bartholin cyst Preop testing 1 Occurrences starting 06/09/2024 until 06/09/2025 [facility] Comment on above: 1 Occurrences starti ng 06/09/2024 until 06/09/2025 End: 11-17-2025 Comprehensive metabolic 2000 panel - Serum or Plasma Comprehensive metabolic panel Lab Routine Bartholin cyst Preop testing 1 Occurrences starting 11/17/2024 until 11/17/2025 [facility] Comment on above: 1 Occurrences starti ng 11/17/2024 until 11/17/2025 End: 06-09-2025 ECG 12 lead ECG 12 lead ECG Routine Bartholin cyst Preop testing 1 Occurrences starting 06/09/2024 until 06/09/2025 [facility] Comment on above: 1 Occurrences starti ng 06/09/2024 until 06/09/2025 THIN PREP TIS PAP AN D HR HPV DNA THIN PREP TIS PAP AND HR HPV DNA Pathology and Cytology Routine Well woman exam with routine gynecological exam Ordered: 05/24/2024 [facility] Comment on above: Ordered: 05/24/2024 [facility] Immunizations Immunization Date Immunization Notes Care Provider Fa cility 12-23-2023 tetanus toxoid, reduced diphtheria toxoid, and acellular pertussis vaccine, adsorbed Ben De Leon DO Work Phone: [facility] 03-18-2021 SARS-CoV-2 (COVID-19 ) mRNA BNT-162b2 vax Anna Sonya [facility] Comment on above: Result Comment: 2022: [id number] 05-14-2012 hepatitis A vaccine, adult dosage Annasanto CasonSonya [facility] 05-14-2012 hepatitis B vaccine, pediatric or pediatric/adolescent dosage Anna Sonya [facility] 04-05-2009 novel [id number], preservative-free, injectable Ubaldo Kaiser DO Work Phone: [facility] 04-05-2009 influenza virus vaccine, unspecified formulation Daniel Gold MD Work Phone: [facility] NEGATED: Highlighted row has not occurred!05-18-2023 influenza virus vaccine, unspecified formulation Anna Hassan [facility] NEGATED: Highlighted row has not occurred!04-24-2023 influenza virus vaccine, unspecified formulation Matthew Carrasco [facility] NEGATED: Highlighted row has not occurred!02-27-2021 influenza virus vaccine, unspecified formulation Anna Hassan [facility] Payers Date Payer Category Payer Private Health Insurance [id number] 2022 Blue Cross Blue [facility] BCBS [id number] 2021 [facility] Managed Care - O [id number]. [id number] 2018 Unknown [id number] 1969 Unknown [id number] 2.16840.1.386603.3.579. 2.647 1969 Unknown [id number] 2.16840.1.464541.3.579. 2.593 1969 Unknown [id number] 2.16.840.1.976702.3.579. 2.593 1969 Unknown [id number] 2.16.840.1.775962.3.579. 2.593 1969 Unknown [id number] 2.16.840.1.046616.3.579. 2.593 1969 Unknown [id number] 2.16.840.1.516024.3.579. 2.593 1969 Unknown [id number] 2.16.840.1.855090.3.579. 2.128 1969 Unknown [id number] 2.16.840.1.321913.3.579. 2.1285 1969 Unknown [id number] 2.16.840.1.612287.3.579. 2.1258 1969 Unknown [id number] 2.16.840.1.528191.3.579. 2.1258 1969 Unknown [id number] 2.16.840.1.137261.3.579. 2.1258 1969 Unknown [id number] 2.840.1.386581.3.579. 2.1258 1969 Unknown [id number] 2.840.1.318989.3.579. 2.1258 1969 Unknown [id number] 2.840.1.084622.3.579. 2.1258 1969 Unknown [id number] 2.840.1.181436.3.579. 2. 1969 Unknown [id number] 2.840.1.475521.3.579. 2. 1969 Unknown [id number] 2.16840.1.309915.3.579. 2. 1969 Unknown [id number] 2.840.1.534694.3.579. 2.1285 1969 Unknown [id number] 2.840.1.369048.3.579. 2.1285 1969 Unknown [id number] 2.16840.1.880200.3.579. 2.1285 1969 Unknown [id number] 2.16.840.1.290501.3.579. 2.1285 1969 Unknown [id number] 2.16840.1.884353.3.579. 2.1285 1969 Unknown [id number] 2.16.840.1.093064.3.579. 2.1286 1969 Unknown [id number] 2.16.840.1.547298.3.579. 2.1286 1969 Unknown [id number] 2.16.840.1.516843.3.579. 2.1286 1969 Unknown [id number] 2.16.840.1.249671.3.579. 2.1286 1969 Unknown [id number] 2.16.840.1.553751.3.579. 2.1286 1969 Unknown [id number] 2.16.840.1.692820.3.579. 2.1286 1969 Unknown [id number] 2.16.840.1.030004.3.579. 2.1286 1959 [facility] [id number] 2.16.840.1.141630.19 Self-pay Self Pay [id number] Unknown [id number] Social History Date Type Detail Facility Start: 04-27-2023 End: 12-05-2024 Sex Assigned At [facility] Start: 05-02-2021 End: 06-10-2024 Tobacco smoking status Ex-smoker (finding) [facility] Comment on above: denies Tobacco smoking status Never [facility] Start: 1970 Sex Assigned At Female F [facility] Start: 11-15-2022 Tobacco smoking stat us NHIS [...] History of tobacco use Current smoker [facility] Start: 04-20-1985 End: 04-20-2015 History of tobacco use Cigarette Smoker [facility] Start: 10-04-2021 End: 06-10-2024 Tobacco use and exposure Smokeless tobacco non-user [facility] Start: 10-04-2021 End: 07-13-2024 Alcoholic beverage intake Ex-drinker (finding) [facility] Start: 1970 Sex assigned at Not on file P [facility] Start: 08-01-2009 End: 11-23-2014 Sex Female (finding) [facility] History of tobacco use Passive smoker [facility] Sexual Orientation [facility] Start: 12-05-2024 End: 12-21-2024 Alcoholic beverage intake Current drinker of alcohol (finding) [facility] Goals Date Patient Goal Desired Activity /State Personal health goal Functional Status Date Assessment Result Facility 12-29-2023 Functional Status N/A [facility] 08-04-2023 Functional Status N/A [facility] 05-19-2023 Functional Status N/A [facility] 11-17-2022 Functional Status N/A [facility] Clinical Notes 07-26-2021 to [...] 06/23/2024 Performed by Daniel Gold MD at [facility] EXCISION LESION VULVA - WIDE LOCAL N/A 12/16/2024 Performed by Daniel Gold MD at [facility] KNEE SURGERY Left 2008 meniscus SHOULDER SURGERY Left 7 total shoulder surgery, [id number] Past Medical History: Diagnosis Date Asthma Atrial [...] *This note was completed using a voice senior gl accountant system. Every effort was made to ensure accuracy. However, inadvertent computerized senior gl accountant errors may be present. Jeanette Tijerina PA-C, RD, IF MAHSA Posada 12/21/24 1403 [facility] Note Loop Office Cardiology Clinic Note Reason for cardiology [...] or near syncope (more content not included)... [facility] 11-18-2024 Instructions Formatting of th is note might be different from the original. Your surgery/procedure is scheduled at [facility] on 12/16/24 at 10:45 am Arrival Time 8:45 am [facility] Address: [address] [place] [address], [facility] in the Emergency Center Parking lot. Report to the front end developer designer in the Emergency/Surgery Registration lobby of the hospital. Notify your SURGEON if you develop any illness such as a cold, cough, fever, sore throat, vomiting or are hospitalized between now and your surgery. Please call Pre-Admission Clinic at [phone] if you have any questions prior to surgery. For questions the morning of surgery, call the Pre-op Department at [phone]. Medication Instructions (Do not stop your medications [...] piercings, hair extensions that contain metal, nail slovak, make-up, and contact lens. You may brush [...] pets in your bed. Please be advised, [facility] has transitioned to a cashless payment system. [...] RIGHTS AND RESPONSIBILITIES As a patient at [facility], you have the right to: Receive medical care and be informed of who is taking care of you Be treated with dignity and respect Have a family member/hotel services sales representative of choice and your physician notified of your admission Receive information and actively participate in decisions about your care and treatment Refuse care, treatment and services Decide who may provide your support and speak for you Access holiness and spiritual services Participate in ethical issues [...] of hospital charges and payment methods Patient/patient hotel services sales representative responsibilities are to: Provide information about health status to facilitate care, treatment and services Follow the treatment, plan, keep appointments and speak up when you do not understand the plan Respect the rights of other patients and healthcare personnel Follow organizational rules and regulations that support quality care and a safe environment Fulfill financial obligations as promptly as possible [facility] 11-18-2024 Miscellaneous Notes Your surgery/procedure is scheduled at [facility] on 12/16/24 at 10:45 am Arrival Time 8:45 am [facility] Address: [address] [place] [address], [address] [place] [address] in the Emergency Center Parking lot. Report to the front end developer designer in the Emergency/Surgery Registration lobby of the hospital. Notify your SURGEON if you develop any illness such as a cold, cough, fever, sore throat, vomiting or are hospitalized between now and your surgery. Please call Pre-Admission Clinic at [phone] if you have any questions prior to surgery. For questions the morning of surgery, call the Pre-op Department at [phone]. Medication Instructions (Do not stop your medications [...] piercings, hair extensions that contain metal, nail slovak, make-up, and contact lens. You may brush [...] pets in your bed. Please be advised, [facility] has transitioned to a cashless payment system. [...] RIGHTS AND RESPONSIBILITIES As a patient at [facility], you have the right to: Receive medical care and be informed of who is taking care of you Be treated with dignity and respect Have a family member/hotel services sales representative of choice and your physician notified of your admission Receive information and actively participate in decisions about your care and treatment Refuse care, treatment and services Decide who may provide your support and speak for you Access holiness and spiritual services Participate in ethical issues [...] of hospital charges and payment methods Patient/patient hotel services sales representative responsibilities are to: Provide information about [...] promptly as possible documented in this encounter [facility] 11-16-2024 History of Presen t illness Narrative [...] 06/23/2024 Performed by Daniel Gold MD at [facility] SURGERY KNEE SURGERY Left 2008 meniscus SHOULDER SURGERY Left 7 total shoulder surgery, [id number] Past Medical History: Diagnosis Date Asthma Colon [...] Soft, nontender, nondistended, no rebound or guarding. Pelvic-coin dealer present: cervix normal in appearance, external genitalia- [...] Referring and communicating with other health home visit field care manager (not separately reported) Documenting clinical information in the electronic or other health record Daniel Gold MD [facility] History of Presen t illness Narrative [...] 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/20/2024 726.0 LEFT [facility] [id number] DOI 07/29/12 Asthma (HCC) Atypical nevi Ellison's esophagus 06/20/2024 Bartholin cyst 06/08/2024 Bursitis of shoulder 06/30/2016 Cervical spondylosis with radiculopathy 06/20/2024 Colon polyp 06/20/2024 Dysphagia 06/20/2024 Full thickness rotator cuff tear 03/12/2014 840.6 LEFT, RECURRENT [facility] [id number] DOI 07/29/12 History of colon polyps 06/20/2024 History of diverticulitis 06/20/2024 History of repair of ACL 2006 History of shoulder surgery Irregular bowel habits 06/20/2024 Irregular Z line of esophagus 06/20/2024 Lumbar disc herniation 02/16/2018 Added automatically from request for surgery [id number] Lumbosacral disc herniation 06/20/2024 Osteoarthritis 06/20/2024 RLQ [...] nursing note reviewed. Exam conducted with a coin dealer present. Vitals: Estimated body mass index is [...] Herb Medel DO documented in this encounter [facility] 10-04-2024 Note Echocardiology Procedure Exam Date/Time Accession # Ordering Dr. San Transthoracic 10/04/2024 14:54 EDT [id number] LYDIA CANNON Complete CPT code 27119 84870 Reason for Exam (Echo Transthoracic Complete) PAF I48.0 Report [facility] [address] [place] [address] Adult Echocardiogram Report Name: TIERA WAKEFIELD Study [...] Signed by: Jagjit Parra MD Transcribed by: [facility] Technologist: ODELL [facility] 08-16-2024 History of Presen t illness Narrative [...] 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/20/2024 726.0 LEFT [facility] [id number] DOI 07/29/12 Asthma Atypical nevi Ellison's esophagus 06/20/2024 Bartholin cyst 06/08/2024 Bursitis of shoulder 06/30/2016 Cervical spondylosis with radiculopathy 06/20/2024 Colon polyp 06/20/2024 Dysphagia 06/20/2024 Full thickness rotator cuff tear 03/12/2014 840.6 LEFT, RECURRENT [facility] [id number] DOI 07/29/12 History of colon polyps 06/20/2024 History of diverticulitis 06/20/2024 History of repair of ACL 2005 History of shoulder surgery Irregular bowel habits 06/20/2024 Irregular Z line of esophagus 06/20/2024 Lumbar disc herniation 02/16/2018 Added automatically from request for surgery [id number] Lumbosacral disc herniation 06/20/2024 Osteoarthritis 06/20/2024 RLQ [...] Insecurity: No Food Insecurity (06/10/2024) Received from [facility] Hunger Screening Within the past 12 [...] help tolerate tinnitus. documented in this encounter [facility] 07-13-2024 History of Presen t illness [...] 06/23/2024 Performed by Daniel Gold MD at [facility] SURGERY KNEE SURGERY Left 2008 meniscus SHOULDER SURGERY Left 7 total shoulder surgery, [id number] Past Medical History: Diagnosis Date Asthma Colon [...] May continue well woman care with primary looping machine operator. Hematuria - patient deferred UA today. Explained [...] moisturizers and lubricants. Explained that moisturizers provide fci relief for vaginal dryness and are used [...] of lubricants include [place], Astroglide, Uberlube, Pjur, [place], Good Clean Love, and coconut oil. Discussed proper use, safety, potential side effects from moisturizers and lubricants. Samples of various lubricants were provided today as well. Discussed further management by her looping machine operator and estrace vaginal cream as a secondary option if needed. She may also return to our team for sexual health concerns if needed. *The patient has a documented plan of care to address pain. All questions were answered to the patient's satisfaction. She is agreeable to this plan of care. *This note was completed using a voice senior gl accountant system. Every effort was made to ensure accuracy. However, inadvertent computerized senior gl accountant errors may be present. *An evaluation and [...] Posada 07/13/24 1033 documented in this encounter [facility] 06-29-2024 History of Presen t illness Narrative Subjective: Tiera Wakefield is a 53 y.o. female who is s/p a excision of right bartholin's gland on 06/23/24. Pathology: pending Patient reports extensive pain and slight bleeding since her surgery. She states this is moderately controlled with ibuprofen. She ran out of Coronado which she states she was taking mostly [...] 06/23/2024 Performed by Daniel Gold MD at [facility] SURGERY KNEE SURGERY Left 2008 meniscus SHOULDER SURGERY Left 7 total shoulder surgery, [id number] Past Medical History: Diagnosis Date Asthma Colon [...] regimen involving ibuprofen 2-3 times daily with Coronado being used at night as needed. May also use ice packs for additional relief. Return to clinic in 2-3 weeks prior to returning to work. An OARRS report was pulled today and her risk score was 310. Coronado was given #7, to be taken nightly [...] *This note was completed using a voice senior gl accountant system. Every effort was made to ensure accuracy. However, inadvertent computerized senior gl accountant errors may be present. .Total time spent was 20 minutes: Preparing to see the patient (e.g., review of tests) Performing a medically appropriate examination and/or evaluation Ordering medications, tests, or procedures Documenting clinical information in the electronic or other health record Care coordination (not separately reported) Jeanette Tijerina PA-C, RD, IF MAHSA Posada 06/29/24 1526 documented in this encounter [facility] 06-29-2024 Miscellaneous Notes Patient called in w/concerns [...] for a 1 week PO appointment in [place]. Offered patient 12:30 or 3:00 today with JENNIFER Reid. Patient agreeable to coming in at 3:00. Address for [place] office given to patient and call was ended. documented in this encounter [facility] 06-29-2024 Telephone encounter Note Patient called [...] for a 1 week PO appointment in [place]. Offered patient 12:30 or 3:00 today with JENNIFER Reid. Patient agreeable to coming in at 3:00. Address for [place] office given to patient and call was ended. [facility] 06-25-2024 Miscellaneous Notes Contract: 166 Had cyst and gland removed on 06/23 and she is still bleeding Contract: 166 Paged Resident to [facility] Resident called back and relayed info to call documented in this encounter [facility] 06-25-2024 Telephone encounter Note Contract: 166 Had cyst and gland removed on 06/23 and she is still bleeding [facility] 06-25-2024 Telephone encounter Note Contract: 166 Paged Resident to [facility] Resident called back and relayed info to call [facility] 03-04-2025 History of Presen t illness Narrative [...] 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/20/2024 726.0 LEFT [facility] [id number] DOI 07/29/12 Asthma (CMS/HCC) Atypical nevi Ellison's esophagus 06/20/2024 Bartholin cyst 06/08/2024 Bursitis of shoulder 06/30/2016 Cervical spondylosis with radiculopathy 06/20/2024 Colon polyp 06/20/2024 Dysphagia 06/20/2024 Full thickness rotator cuff tear 03/12/2014 840.6 LEFT, RECURRENT [facility] [id number] DOI 07/29/12 History of colon polyps 06/20/2024 History of diverticulitis 06/20/2024 History of repair of ACL 2006 History of shoulder surgery Irregular bowel habits 06/20/2024 Irregular Z line of esophagus 06/20/2024 Lumbar disc herniation 02/16/2018 Added automatically from request for surgery [id number] Lumbosacral disc herniation 06/20/2024 Osteoarthritis 06/20/2024 RLQ [...] Insecurity: No Food Insecurity (06/10/2024) Received from [facility] Hunger Screening Within the past 12 months [...] help tolerate tinnitus. documented in this encounter [facility] 06-15-2024 History of Presen t illness [...] sloping to a mild sensorineural hearing loss 7961-8400 Hz in the left ear. The right ear exhibited normal hearing 250-2000 Hz, sloping to a mild sensorineural hearing loss 6417-3038 Hz, returning to normal hearing at 8000 Hz. Speech Audiometry Right SRT = 15 dB and word discrimination score at 45 dBHL = 100% Left SRT = 15 dB and word discrimination score at 45 dBHL = 100% Tympanometry Normal tympanograms, bilaterally, indicating normal middle ear function Impressions: Dr. Kaiser 06-21-2024 documented in this encounter [facility] 06-10-2024 Instructions Eliana Soriano RN - 06/10/2024 10:30 AM EST Your surgery/procedure is scheduled at [facility] on 06/23/2024 at 7:30 am Arrival Time 5:30 am [facility] Address: [address] [place] [address], [facility], [address] [address] in the Emergency Center Parking lot. Report to the front end developer designer in the Emergency/Surgery Registration lobby of the hospital. Notify your SURGEON if you develop any illness such as a cold, cough, fever, sore throat, vomiting or are hospitalized between now and your surgery. Please call Pre-Admission Clinic at [phone] if you have any questions prior to surgery. For questions the morning of surgery, call the Pre-op Department at [phone]. Medication Instructions (Do not stop your medications [...] would like to schedule therapy at a [facility] facility, please call [phone] ([phone]). Do not use lotions, creams, powders, perfume, make up, cologne or after-shaves day of surgery. Remove ALL jewelry including wedding rings, body piercings, hair extensions that contain metal, nail slovak, make-up, and contact lens. You may brush your teeth the morning of surgery, but do not swallow the water. Wear your dentures and partial plates to the hospital (no adhesive). Shower the night the before. If applicable, use the CHG (chlorhexidine gluconate) soap or wipes. Please be advised, [facility] has transitioned to a cashless payment system. [...] RIGHTS AND RESPONSIBILITIES As a patient at [facility], you have the right to: Receive medical care and be informed of who is taking care of you Be treated with dignity and respect Have a family member/hotel services sales representative of choice and your physician notified of your admission Receive information and actively participate in decisions about your care and treatment Refuse care, treatment and services Decide who may provide your support and speak for you Access holiness and spiritual services Participate in ethical issues [...] of hospital charges and payment methods Patient/patient hotel services sales representative responsibilities are to: Provide information about [...] in clean clothes. documented in this encounter [facility] 06-10-2024 Miscellaneous Notes Pt had a one view CXR done on 04/30/2024 at [facility] that was received by fax and scanned into [employer]. Gina Alberts at Dr Gold's office was notified and will check with Dr Mehta and will let pt know if she has to go for a two view prior to surgery. documented in this encounter [facility] 06-10-2024 Nurse Note Pt had a one view CXR done on 04/30/2024 at [facility] that was received by fax and scanned into [employer]. Gina Alberts at Dr Gold's office was notified and will check with Dr Mehta and will let pt know if she has to go for a two view prior to surgery. [facility] 06-08-2024 History of Presen t illness Narrative [...] Referring and communicating with other health home visit field care manager (not separately reported) Documenting clinical information in the electronic or other health record [facility] MD [facility] History of Presen t illness Narrative [...] nursing note reviewed. Exam conducted with a coin dealer present. Vitals: Estimated body mass index is [...] of: MAHSA Navarro documented in this encounter [facility] 12-29-2023 Hospital Discharg e instructions Patient [...] sitting or lying down. General instructions Take idej-ldd-akzhtkt and prescription medicines only as told by [...] provider. Document Revised: 09/22/2022 Document Reviewed: 09/22/2022 [employer] Patient Education 2023 [employer]. Follow Up Care 12/29/2023 20:01:29 With:GERALDUYEN TAVARES Address: [employer] [place] [address]- Business (1) When:Within 3 Day(s) [facility] 12-29-2023 Note ED Patient Education Note [...] or lying down. General instructions ? Take fizk-puc-xgsixcx and prescription medicines only as told by [...] provider. Document Revised: 09/22/2022 Document Reviewed: 09/22/2022 [employer] Patient Education ? 2023 [employer]. [facility] 12-29-2023 Evaluation + Plan note Extrac maggie from: Title:ED Note Author:Manav Fisher DO Date :12/29/23 Contusion of knee (S80.00XA: Contusion of unspecified knee, initial encounter) Orders: XR Knee Complete 4+ Views Right Future Scheduled Tests Laboratory* Magnesium Level 08/04/23 * Vitamin B12 Level 08/04/23 [facility] 09-04-2024 History of Present illness Narrative* [...] infection RTC for recheck. documented in this [facility]09-04-2024 Instructions* Patient Instructions* Yumiko Ríos RN - 12/23/2023 9:30 AM EDT See progress note documented in this [facility]04-16-2024 Hospital Discharge instructions Patient Education [...] drinks. ?Tomatoes and foods made with tomatoes. ?Platinum or spicy foods. ?Chocolate and peppermint. Do not drink alcohol. General instructions Take hrij-pcz-cqkowby and prescription medicines only as told by [...] provider. Document Revised: 06/23/2020 Document Reviewed: 06/23/2020 [employer] Patient Education 2022 [employer]. Follow Up Care 07/22/2023 13:53:31 With:Anna Hassan CNP Address: When:1 month [facility] 04-16-2024 Evaluation + Plan note Future Scheduled Tests Laboratory* Magnesium Level 08/04/23 * Vitamin B12 Level 08/04/23 [facility] 01-30-2024 Hospital Discharge instructions Patient [...] Follow these instructions at home: Medicines Take odnc-mjs-dwgmhjl and prescription medicines only as told by [...] powder, vinegar, hot sauces, and barbecue sauce. ?Worley fruit juices and citrus fruits, such as oranges, zaynab, and limes. ?Tomato-based foods, such as red sauce, chili, salsa, and pizza with red sauce. ?Fried and fatty foods, such as donuts, omani fries, potato chips, and high-fat dressings. ?High-fat [...] provider. Document Revised: 10/15/2020 Document Reviewed: 10/15/2020 [employer] Patient Education 2022 [employer]. Follow Up Care 05/18/2023 11:08:33 With:Anna Hassan CNP Address: When:3 months [facility] 11-01-2023 Evaluation note* Encounter Date [...] otitis media with effusion (ICD-10 - H65.93) [facility] 09-02-2023 Evaluation note* Encounter Date Diagnosis [...] dermati tis home care material was printed [facility] 07-31-2023 Hospital Discharge instructions Patient Education [...] treated at home. Treatment may include: Taking ptez-lie-obufbdn pain medicines. Following a clear liquid diet. [...] Follow these instructions at home: Medicines Take whho-qse-jivntqh and prescription medicines only as told by [...] provider. Document Revised: 01/16/2020 Document Reviewed: 01/16/2020 [employer] Patient Education 2022 [employer]. Follow Up Care 10/15/2022 08:09:26 With:Anna Hassan CNP Address: When:1 month [facility] 07-31-2023 Evaluation + Plan note Future Scheduled Tests Radiology* CT Abdomen/Pelvis w/ Contrast 11/17/22 [facility] 02-10-2023 NotePROCEDURE: XR ANKLE RT [...] by: LIZBETH TANG Date: 2022-05-30 13:52[facility]02-10-2023 NotePROCEDURE: XR ANKLE RT MIN 3 [...] by: LIZBETH TANG Date: 2022-05-30 13:52[facility]04-08-2022 Evaluation note* Encounter Date Diagnosis Assessment [...] - G89.29) Continue with current treatment plan. [facility] Other Evaluation + Plan note No data available for this section [facility] evaluation + Plan note Future Appointments Appointment Date:09/07/2023 03:15:00 PM Scheduled Provider:Elina Boyer MD Location:[facility] Appointment Type:[facility] Follow Up Future Scheduled Tests Laboratory* Magnesium Level 08/04/23 * Vitamin B12 Level 08/04/23 [facility] evaluation noteNo Andel [facility] Other evaluation note* Diagnosis Onset Date Resolution Status Contact dermatitis [facility] Work Phone: evaluation note* Diagnosis Puncture wound of right foot, initial encounter- Primary documented in this encounter [facility]* Diagnosis Well woman exam with routine gynecological exam Routine gynecological examination Bartholin's gland cyst Cyst of Bartholin's gland Encounter for screening mammogram for malignant neoplasm of breast Yeast infection documented in this encounter [facility]* Diagnosis Bartholin cyst- Primary Cyst of Bartholin's gland [facility] Diagnosis Bartholin cyst- Primary Cyst of Bartholin's gland Preop testing Unspecified pre-operative examination Abscess of Bartholin gland [facility] Diagnosis Bartholin cyst Cyst of Bartholin's gland Preop testing Unspecified pre-operative examination Abscess of Bartholin gland documented [facility] this [facility] Diagnosis Sensorineural hearing loss, bilateral- Primary Right-sided tinnitus Unspecified tinnitus documented in this encounter [facility]* Diagnosis Sensorineural hearing loss (SNHL) of right ear, unspecified hearing status on contralateral side- Primary Pulsatile tinnitus Tinnitus, unspecified laterality documented in this encounter [facility]* Diagnosis Encounter for postoperative care- Primary Post-op pain Other acute postoperative pain [facility] Diagnosis Encounter for postoperative care- Primary Dyspareunia, female documented in this [facility] Diagnosis Family history of aneurysm- Primary Family history of other condition Pulsatile tinnitus Sensorineural hearing loss (SNHL) of right ear, unspecified hearing status on contralateral side documented in this encounter [facility]* Diagnosis Dyspareunia, female Postmenopausal state Asymptomatic postmenopausal status (age-related) (natural) documented in this encounter [facility]* Diagnosis Bartholin cyst- Primary Cyst of Bartholin's gland documented in this [facility] Diagnosis Bartholin cyst- Primary Cyst of Bartholin's gland Preop testing Unspecified pre-operative examination documented in this [facility] Diagnosis Encounter for postoperative care- Primary documented in this [facility] Narrative - Reported* Type Description Date Medical History Left rotator cuff Medical History Asthma Medical History GERD Surgical History 6 left shoulder surgeries Surgical History Left rotator cuff, x5 Surgical History Left knee Surgical History Left knee, torn ACL and meniscu s Surgical History Gallbladder Surgical History Lap Cholecystectomy Surgical History nerve block Hospitalization History See Above [facility] Hospital Discharge instructions No data available for this section [facility] InstructionsNot on filedocumented in this encounter [facility] filedocumented in this encounter [facility] filedocumented in this encounter [facility] filedocumented in this encounter [facility] filedocumented in this encounter [facility] No data available for this section [facility] Summary Purpose Family History No [...] and content) DATE CREATED AUTHOR 03/22/2018 [facility] DATE CREATED AUTHOR AUTHOR'S ORGANIZ ATION 03/27/2018 [facility] DATE CREATED AUTHOR AUTHOR'S ORGANIZ ATION 03/27/2018 [facility] DATE CREATED AUTHOR AUTHOR'S ORGANIZ ATION 03/07/2019 [facility] DATE CREATED AUTHOR AUTHOR'S ORGANIZ ATION 07/30/2021 [facility] DATE CREATED AUTHOR AUTHOR'S ORGANIZ ATION 06/05/2022 [facility] DATE CREATED AUTHOR AUTHOR'S ORGANIZ ATION 06/13/2024 [facility] DATE CREATED AUTHOR AUTHOR'S ORGANIZ ATION 10/11/2024 [facility] DATE CREATED AUTHOR AUTHOR'S ORGANIZ ATION 10/12/2024 [facility] DATE CREATED AUTHOR AUTHOR'S ORGANIZ ATION 12/02/2024 [facility] DATE CREATED AUTHOR AUTHOR'S ORGANIZ ATION 12/21/2024 [facility] DATE CREATED AUTHOR AUTHOR'S ORGANIZ ATION 12/23/2024 [facility] REASON FOR VISIT (unrecogniz ed [...] Team Status: Inactive Member Role Status Dates Greald Tavares DO Primary Care Provider Active Start: November 16, 2023 End: November 16, 2023 Maida Montiel APRN Attending Provider Active Start: November 16, 2023 End: November 16, 2023 Drug Safety Scientist Relationship Specialty Start Date End Date Unallocated, Graces MD [address] [place] [address] PCP - General Family Medicine 06/19/23 Drug Safety Scientist Relationship Specialty Start Date End Date Unallocated, Noms Shukri MD [address] [facility] [address] PCP - General Family Medicine 06/19/23 Drug Safety Scientist Relationship Specialty Start Date End Date Unallocated, [facility] [place] [address] PCP - General Family Medicine 06/19/23 Drug Safety Scientist Relationship Specialty Start Date End Date Unallocated, Daniel Watt MD [facility] [address] [facility] [place] [address] PCP - General Family Medicine 06/19/23 Drug Safety Scientist Relationship Specialty Start Date End Date Gerald Tavares DO [address] [place] [address] PCP - General Family Medicine 09/26/21 Drug Safety Scientist Relationship Specialty Start Date End Date Gerald Tavares DO [address] [place] [address] PCP - General Family Medicine 09/26/21 Drug Safety Scientist Relationship Specialty Start Date End Date Gerald Tavares DO [address] [place] [address] PCP - General Family Medicine 09/26/21 Drug Safety Scientist Relationship Specialty Start Date End Date Unallocated, Daniel Watt MD [facility] [address] [facility] [place] [address] PCP - General Family Medicine 06/19/23 Drug Safety Scientist Relationship Specialty Start Date End Date Unallocated, Daniel Watt MD [facility] [place] [address] PCP - General Family Medicine 06/19/23 Drug Safety Scientist Relationship Specialty Start Date End Date Unallocated, Noms Provider, MD [address] [place] [address] PCP - General Family Medicine 06/19/23 Drug Safety Scientist Relationship Specialty Start Date End Date Unallocated, Daniel Watt MD [address] [place] [address] PCP - General Family Medicine 06/19/23 Drug Safety Scientist Relationship Specialty Start Date End Date Gerald Tavares DO [address] [place] [address] PCP - General Family Medicine 09/26/21 Drug Safety Scientist Relationship Specialty Start Date End Date Gerald Tavares DO [address] [place] [address] PCP - General Family Medicine 09/26/21 Drug Safety Scientist Relationship Specialty Start Date End Date Unallocated, Daniel Watt MD [address] [place] [address] PCP - General Family Medicine 06/19/23 Gerald Tavares MD [address] [place] [address] Referring Physician Family Medicine 08/16/24 Ubaldo Kaiser, [address] [place] [address] [place] [address] Otolaryngology 08/16/24 Drug Safety Scientist Relationship Specialty Start Date End Date Unallocated, Daniel Watt MD [address] [place] [address] PCP - General Family Medicine 06/19/23 Gerald Tavares MD [address] [place] [address] Referring Physician Family Medicine 08/16/24 Ubaldo Kaiser DO [address] [place] [address] Otolaryngology 08/16/24 Drug Safety Scientist Relationship Specialty Start Date End Date Unallocated, Noms MD [address] [place] [address] PCP - General Family Medicine 06/19/23 Gerald Tavares MD [address] [place] [address] Referring Physician Family Medicine 08/16/24 Ubaldo Kaiser DO [address] [place] [address] Otolaryngology 08/16/24 Drug Safety Scientist Relationship Specialty Start Date End Date Gerald Tavares DO [address] [place] [address] PCP - General Family Medicine 09/26/21 Drug Safety Scientist Relationship Specialty Start Date End Date Gerald Tavares DO [address] [place] [address] PCP - General Family Medicine 09/26/21 Goals [...] BE BASED ON THE PRIMARY CLINICAL RECORDS. [facility] [employer] [facility]. provides no warranty or guarantee of the accuracy or completeness of information in this document.
[2025-01-12] MEDS: ACETAMINOPHEN 300 MG/ 30 MG CODEINE TABLET 1 TAB PO (10:41)
== END 2025-01-12 10:51 | disposition home or self-care (01) ==
PROVIDERS: Emergency Provider Emergency Medicine; PCP Family Medicine
DX: J06.9 Acute upper respiratory infection, unspecified (principal); Z87.891 Personal history of nicotine dependence
CPT/HCPCS: 71045; 87804; 87811; 94640; 96372; 99284; J2919

== ENCOUNTER 2025-03-07 13:04 | Outpatient (OUT) | payer BC, SELFPAY ==
--- OUTSIDE RECORDS SUMMARY | 2025-03-07 13:10 | XMS_ITS | Clinical Summary ---
Author Organization [facility] tem Address [id number] [address] [place] [address] Care Team Providers Care Hand Almond Blancher Name Role Phone Gerald Tavares DO Primary Care Provider [phone] Allergies No known active allergies Medications MedicationSigDispense QuantityRefillsLast FilledStart DateEnd DateStatus citalopram (CeleXA) 20 mg tablet Take 1 tablet (20 mg total) by mouth nightly. depressionActive albuterol (PROVENTIL HFA;VENTOLIN HFA) 90 mcg/actuation inhaler Inhale 1 puff as needed for wheezing.2Active esomeprazole (NexIUM) 40 mg capsule Indications:gastroesophageal reflux diseaseTake 1 capsule (40 mg total) by mouth nightly Indications: gastroesophageal reflux disease.5Active ELIQUIS 5 mg tablet Take 1 tablet (5 mg total) by mouth in the morning and 1 tablet (5 mg total) before bedtime.5Active oxyCODONE-acetaminophen (PERCOCET) 5-325 mg per tablet Indications:Postoperative painTake 1 tablet by mouth every 6 (six) hours as needed for pain for up to 20 doses. Max Daily Amount:4 tablets 20 tablet 5Active Active Problems ProblemNoted DateDiagnosed DateBartholin cyst06/08/2024 Encounters DateTypeDepartmentCare ErciJkxkpjuzyiy73/03/2025 1:30 PM EDTOffice Visit [facility] [address] [place] [address] Jeanette Hall PA Encounter for postoperative care (Primary Dx)12/21/20248497Vzlheq30/29/2025 10:45 AM EDT - 12/16/2024 12:00 PM EDTSurgery [facility] [address] [place] [address] Daniel Gold MD EXCISION LESION VULVA - WIDE LOCAL12/16/2024 9:28 AM EDTAnesthesia Event [facility] [address] [place] [address] Munir Hollins MD Gundy, Emily L, GM/SVP [employer]-ALMOND BLANCHER OPERATOR 12/16/2024 8:25 AM EDT - 12/16/2024 12:34 PM EDTHospital Encounter [facility] [address] [place] [address] Daniel Gold MD Bartholin cyst (Primary Dx); Postoperative pain Discharge Disposition: Home12/16/20246246Arstip96/25/2025Travelfrom Last 3 Months Family History Medical HistoryRelationNameCommentsAneurysmFatherAtrial fibrillationFather Ovarian cancerMotherAnesthesia problemsNeg HxRelationNameStatusCommentsFather AliveMotherDeceased Social History Tobacco UseTypesPacks/DayYears UsedDateSmoking Tobacco: SorxvuGaktjhlrdv4849911 - 2016Passive Smoke Exposure: CurrentSmokeless Tobacco: Never Tobacco Cessation:Counseling Given: Not Answered Alcohol UseStandard Drinks/WeekCommentsYes1 (1 standard drink = 0.6 oz pure alcohol)ChildcareAnswerDate WojervckYbsfyoxheMjfuoqb92/12/2019EmploymentAnswer Date SewyeakvOibhpuyebvMecevbk82/12/2019Hunger ScreeningAnswerDate Recorded Within the past 12 months we worried whether our food would run out before we got money to buy more.Never True12/05/2024Within the past 12 months the food we bought just didn't last and we didn't have money to get more.Never True 12/05/2024CommentsNoSex and Gender InformationValueDate RecordedSex Assigned at BirthNot on fileLegal XynBrowln75/06/2015 12:12 PM EDTGender IdentityNot on fileSexual OrientationNot on file Last Filed Vital Signs Vital SignReadingTime TakenCommentsBlood Mopxllwq205/8109 1:17 PM EDT Tjmkb7113 1:17 PM PMLWbjygvfrftf91 ??C (96.8 ??F)12/16/2024 11:30 AM EDT Respiratory Eoyw544912/21/2024 1:17 PM EDTOxygen Sgpoonqtjf04%12/21/2024 1:17 PM EDTInhaled Oxygen Concentration--Thfxol12.5 kg (162 lb)12/21/2024 1:17 PM EDT Oojnzn032 cm (5' 2.99 )12/21/2024 1:17 PM EDTBody Mass Index28.709 1:17 PM EDT Plan of Treatment Health MaintenanceDue DateLast DoneCommentsDepression Aidgthxmk10/02/1982Adult BMI Follow Up Plan10/20/1987Zoster (Shingles) Vaccine (1 of 2)10/20/2019COVID-19 Vaccine (2 - 2024- season)Influenza Okmmarg0212/19/2024 04/05/2009, 04/05/2009dult BMI Ptwfjfcnh03/06/2024Tobacco Screening Pap Smear05/24/DTaP,Tdap and Td Vaccines (2 - Td or Tdap) Medical Devices Not on file Procedures Procedure NamePriorityDate/TimeAssociated DiagnosisCommentsSURGICAL PATHOLOGY Jptbdxj5912/16/2024 9:52 AM EDT ANESTHESIA PPDPVJOPLKJlsrhxy14/29/2025 9:34 AM EDT EXCISION LESION VULVA12/16/2024 9:28 AM EDT RECURRENT BARTHOLINS GLAND ABSCESS RIGHT Case Notes RAVI 45W COMPREHENSIVE METABOLIC FKKNFYbrusyv74/25/2025 9:00 AM EDT Bartholin cyst Preop testing CBC WITH AUTO ABYEWJZEFULBFreoova75/25/2025 9:00 AM EDT Bartholin cyst Preop testing from Last 3 Months Results * Surgical Pathology (12/16/2024 9:52 AM EDT)ComponentValueRef RangeTest Method Analysis TimePerformed AtPathologist SignatureCase ReportSurgical Pathology Report ? Case: [id number] ? Authorizing Provider: ??Daniel Gold MD ?Collected: ? 12/16/2024 0952 ? Ordering Location: ? [facility] ??Received: ?12/16/2024 1020 ? a [facility] of [facility] ? Pathologist: ? Gene Anitra Mendoza MD ? Specimen: ?Vulva, right vulva lesion ? 12/20/2024 4:38 PM [facility] LABORATORYFinal DiagnosisVulva, excisional biopsy: Benign skin with diffuse chronic and focal active inflammation, inflamed granulation tissue, and cyst consistent with Bartholin's gland cyst.12/20/2024 4:38 PM [facility] at 1638 EDTGross DescriptionReceived in formalin, labeled ZILCH, right vulvar lesion are two portions of pink-guzmán soft tissuepartially lined with skin, 1.5 x 1.0 x 0.5 cm and 1.1 x 0.7 x 0.6 cm. The larger lesion is remarkable for a nodular skin surface and the other lesion is remarkable for a wrinkled skin surface. The res ection margins are inked green and the lesions are serially sectioned to reveal pink-guzmán soft tissue. The larger lesion is entirely submitted in cassette 1A and the other lesion is entirely submittedin cassette 1B. (2, ns, [id number], m8.1) JL12/20/2024 4:38 PM [facility] LABORATORYEmbedded Images 12/20/2024 4:38 PM [facility] LABORATORYSpecimen (Source) Anatomical Location / LateralityCollection Method / VolumeCollection Time Received TimeTissueVulval structure / Ywsjgnx8012/16/2024 9:52 AM EDT12/16/2024 10:20 AM EDTComment:Pre-op diagnosis: RECURRENT BARTHOLINS GLAND ABSCESS RIGHT Narrative Authorizing ProviderResult TypeResult StatusAdam Landen Gold MDPATHOLOGY/CYTOLOGY ORDERABLESFinal ResultPerforming OrganizationAddressCity/State/ZIP CodePhone Number [facility] [address] [place] [address], * AL AN ELECTIVE SUPRAGLOTTIC AIRWAY (12/16/2024 9:34 AM EDT) Johnna Mccoy APRN-CRNA - 12/16/2024 9:34 AM EDT AGUSTINA Ray 12/16/2024 9:44 AM Airway Patient location during procedure: OR Urgency: Elective Date/Time: 12/16/2024 9:34 AM Airway not difficult IV In Situ: Peripheral General Information and Staff Service Provider: AGUSTINA Ray Placed by: ??AGUSTINA Ray Patient Identified, IV Checked, Risks and Benefits Discussed, Surgical Consent, Monitors and Equipment Checked, Pre-op Evaluation and Timeout Performed Fire Risk Assessment Score: 0 Consent for Emergent Airway (if performed for an anesthetic, see related documentation for consents) Risks and benefits: risks, benefits and alternatives were discussed Indications and Patient Condition Preoxygenated: yesPatient position: Supine and Sniffing Mask difficulty assessment: Vent By Mask Indications for airway management: Anesthesia Complications: No Complicating Factors: No Final Airway Details Final airway type: Supraglottic Airway Successful Airway: LMA and I GelOral SGA size: 4 Dentition Check Pre: See Pre-Evaluaton documentation Post Intubation Trauma? No Placement verified by: capnography and symmetrical chest wall movement Number of attempts at approach: 1 Airway Brand: ??LMA and I Gel Authorizing ProviderResult TypeResult StatusNatbrady Hollins MDANESTHESIA ORDERABLES Edited Result - Final * CBC with auto diff (12/12/2024 9:00 AM EDT)ComponentValueRef RangeTest Method Analysis TimePerformed AtPathologist SignatureWBC4.24 - 11 x10E9/L12/12/2024 2:41 PM [facility] LABORATORYRBC Count4.823.8 - 5.2 X10E12/L 12/12/2024 2:41 PM [facility] HDPYTBOJQMDxfnvjdvic26.511.7 - 15.5 g/dL12/12/2024 2:41 PM [facility] LABORATORYHematocrit 42.135 - 47 %12/12/2024 2:41 PM [facility] ESTEJVEAZHKBG9745 - 100 fL12/12/2024 2:41 PM [facility] BAIIUXXFJAJTK53.027 - 34 pg12/12/2024 2:41 PM [facility] CIQNYHMPVFYMBR47.332 - 36 g/dL12/12/2024 2:41 PM [facility] AKQVUAQONNTWR30.711.5 - 15 %12/12/2024 2:41 PM [facility] LABORATORYPlatelet Acoff559200 - 450 X10E9/L12/12/2024 2:41 PM [facility] LABORATORYMPV7.67 - 12 fL12/12/2024 2:41 PM [facility] LABORATORYNeutrophils % 44.8%12/12/2024 2:41 PM [facility] LABORATORYLymphocytes % 42.0%12/12/2024 2:41 PM [facility] LABORATORYMonocytes %7.4% 12/12/2024 2:41 PM [facility] LABORATORYEosinophils %4.8% 12/12/2024 2:41 PM [facility] LABORATORYBasophils %1.0% 12/12/2024 2:41 PM [facility] LABORATORYNeutrophils Absolute (A)1.91.5 - 6.6 10*3/uL12/12/2024 2:41 PM [facility] LABORATORYLymphocytes Absolute1.81.0 - 3.5 10*3/uL12/12/2024 2:41 PM [facility] LABORATORYMonocytes Absolute0.30.0 - 0.9 10*3/uL12/12/2024 2:41 PM [facility] LABORATORYEosinophils Absolute0.20.0 - 0.4 10*3/uL12/12/2024 2:41 PM [facility] LABORATORYBasophils Absolute0.00.0 - 0.2 10*3/uL12/12/2024 2:41 PM [facility] LABORATORYDifferential TypeAUTOMATED DMAPOVALSJMV75/25/2025 2:41 PM [facility] LABORATORYSpecimen (Source)Anatomical Location / Laterality Collection Method / VolumeCollection TimeReceived TimeBloodVenous blood / UnknownVenipuncture / Qxdgjnu5612/12/2024 9:00 AM EDT12/12/2024 9:00 AM EDT Narrative Authorizing ProviderResult TypeResult StatusAdam Landen RODRIGUEZ BLOOD ORDERABLES Final ResultPerforming OrganizationAddressCity/State/ZIP CodePhone Number [facility] [address] [place] [address], * Comprehensive metabolic panel (12/12/2024 9:00 AM EDT)ComponentValueRef Range Test MethodAnalysis TimePerformed AtPathologist WzvyzgvcwMIRLVD852426 - 146 mmol/L12/12/2024 3:31 PM [facility] LABORATORYPOTASSIUM4.03.5 - 5.0 mmol/L12/12/2024 3:31 PM [facility] LABORATORYCHLORIDE 65549 - 109 mmol/L12/12/2024 3:31 PM [facility] CARBON XAVQAUV7887 - 32 mmol/L12/12/2024 3:31 PM [facility] LABORATORYANION GAP55 - 15 mmol/L12/12/2024 3:31 PM [facility] LABORATORYBLOOD UREA ONPGPNZQ541 - 23 mg/dL12/12/2024 3:31 PM [facility] LABORATORYCREATININE0.750.40 - 1.00 mg/dL12/12/2024 3:31 PM [facility] LABORATORYComment:METHOD TRACEABLE TO IDMS NPUKKYXKSKKDXEO5427 - 99 mg/dL12/12/2024 3:31 PM [facility] LABORATORYCALCIUM9.28.5 - 10.5 mg/dL12/12/2024 3:31 PM [facility] LABORATORYTOTAL PROTEIN7.06.0 - 8.0 g/dL12/12/2024 3:31 PM [facility] LABORATORYALBUMIN4.53.2 - 5.3 g/dL12/12/2024 3:31 PM EDT [facility] LABORATORYALKALINE FIBOKNELWWF3061 - 130 U/L 12/12/2024 3:31 PM [facility] DOJTSYPLMRPNQ39<=41 U/L 12/12/2024 3:31 PM [facility] FNNVNKCHTFANL28<=31 U/L 12/12/2024 3:31 PM [facility] LABORATORYBILIRUBIN,TOTAL1.10.3 - 1.2 mg/dL12/12/2024 3:31 PM [facility] LAB[facility]ORYEGFR Non- Race Dependent>90>=60 ml/min/1.73sq.m012/12/2024 3:31 PM [facility] LABORATORYComment: Reported eGFR is based on the CKD-EPI 2020 equation that does not use a race coefficient. EGFR not calculated due to patient's gender not being defined. Specimen (Source)Anatomical Location / LateralityCollection Method / Volume Collection TimeReceived TimeBloodVenous blood / UnknownVenipuncture / Unknown 12/12/2024 9:00 AM EDT12/12/2024 9:00 AM EDT Narrative Authorizing ProviderResult TypeResult StatusAdam Landen Gold MDLAB BLOOD ORDERABLES Final ResultPerforming OrganizationAddressCity/State/ZIP CodePhone Number [facility] [address] [place] [address], [place] [phone] from Last 3 Months Insurance Care Teams Team MemberRelationshipSpecialtyStart DateEnd Date Gerald Tavares DO [address] [place] [address] [facility]/26/21
--- OUTSIDE RECORDS SUMMARY | 2025-03-07 13:10 | XMS_ITS | Clinical Summary ---
Author Organization [facility] Address [address] [place], [place] [address] Care Team Providers Care Plaster Model And Mold Maker Name Role Phone Kobebrisa Robert Juan Primary Care Provider [phone] Allergies Active AllergyReactionsCriticalityNoted DateCommentsAspirinOther: See Comments Egtaoo3704/07/2014 Medications MedicationSigDispense QuantityRefillsLast FilledStart DateEnd DateStatus fluticasone-salmeterol (ADVAIR) 100-50 mcg/dose dsdv Advair Diskus 100 mcg-50 mcg/dose powder for inhalationActive albuterol (PROVENTIL) 2.5 mg /3 mL (0.083 %) nebulizer solution albuterol sulfate 2.5 mg/3 mL (0.083 %) solution for nebulizationActive baclofen (LIORESAL) 10 mg tablet 01/16/2018Active citalopram (CELEXA) 20 mg tablet citalopram 20 mg tabletActive methylPREDNISolone (MEDROL DOSE-PACK) 4 mg Dose-Pack 02/09/2018Active methylPREDNISolone (MEDROL DOSE-PACK) 4 mg Dose-Pack methylprednisolone 4 mg tablets in a dose packActive Active Problems ProblemNoted DateDiagnosed DateLumbar disc jckpcnrzyk02/30/2018 Overview (02/16/2018): Added automatically from request for surgery [id number] Social History Tobacco UseTypesPacks/DayYears UsedDateSmoking Tobacco: KrtqijWbymgmsaxo330 Smokeless Tobacco: NeverAlcohol UseStandard Drinks/WeekCommentsNo0 (1 standard drink = 0.6 oz pure alcohol)PHQ-2AnswerDate RecordedPHQ-2 umgnl408Area Deprivation IndexAnswerDate RecordedNational Score (1-100), lower number is lower riskNot on file03/28/2020State Score (1-10), lower number is lower riskNot on file03/28/2020Data from: https://www.neighborhoodatlas.medicine.[facility].edu/. Last address used for calculationNot on file03/28/2020CommentsUnknownSex and Gender InformationValueDate RecordedSex Assigned at BirthNot on fileLegal TvdAjsnyt28/02/2012 10:09 AM ESTGender IdentityNot on fileSexual OrientationNot on file Last Filed Vital Signs Vital SignReadingTime TakenCommentsBlood Uxnyxenb490/7202/18/2018 9:46 AM EDT Emjap593402/18/2018 9:46 AM DPKRxmiyrruxlb40.1 ??C (97 ??F)02/18/2018 9:26 AM EDT Respiratory Zamr898004/20/2017 9:46 AM EDTOxygen Ouebdshhzb17%02/18/2018 9:46 AM EDTInhaled Oxygen Concentration--Qaywee95.6 kg (149 lb)02/18/2018 9:26 AM EDT Wvalxs172 cm (5' 3 )02/15/2018 1:45 PM EDTBody Mass Index26.391 1:45 PM EDT Plan of Treatment Health MaintenanceDue DateLast DoneCommentsAnxiety Cwxpafmkw34/02/1988Depression Bmghzswxz22/02/1988HIV Mzqyyjbsh10/02/1988Hepatitis C Ezdyemeqk89/02/1988 DTaP,Tdap,Td Vaccine (1 - Tdap)1988Hepatitis B Vaccine (1 of 3 - 19+ 3- dose series)1988Cervical Cancer Shxswhnzg17/02/1991Mammogram Screening 2009CT Qiqtlgygyvii67/02/2015Cologuard (FIT-DNA)2014Colonoscopy 2014Colorectal Cancer Shruqiaso25/02/2015Diabetes Rhujkwivw64/02/2015Fecal Occult Blood2014Lipid Bpnmwluxm53/02/9379Oumneuolshmkg81/02/2015 Pneumococcal Vaccine: 50+ (1 of 1 - PCV)10/20/2019Shingrix Vaccine (1 of 2) 10/20/2019Covid-19 Vaccine (1 - 2024-26 season)2024Influenza Vaccine (#1) 2024 Insurance * Guarantor: Colin Maciasunt TypeRelation to PatientDate of BirthPhone Billing AddressSelf [id number] 1970 [address] [place] [address] Care Teams Team MemberRelationshipSpecialtyStart DateEnd Date Robert Crowe DO PCP - GeneralFamily Wdtdzgal24/1/18
--- OUTSIDE RECORDS SUMMARY | 2025-03-07 13:10 | XMS_ITS | Clinical Summary ---
Author Organization [facility] Address [address] [place] [address] Care Team Providers Care Workforce Development Specialist Name Role Phone TavaresGerald Primary Care Provider [phone] Allergies Active AllergyReactionsCriticalityNoted PwezRwmazqrpAkytflmRqesiRogrzu77/18/2014 Outside Source Comment: Rash aspirin Medications MedicationSigDispense QuantityRefillsLast FilledStart DateEnd DateStatus albuterol 90 mcg/actuation inhaler Inhale 1 puff if needed each day.09/13/2021ctive Eliquis 5 mg tablet Take 5 mg by mouth two times daily.Active citalopram (CeleXA) 20 mg tablet Take 20 mg by mouth in the morning.Active esomeprazole (NexIUM) [address] capsule Take 40 mg by mouth in the morning.02/04/2024ctive metoprolol succinate XL (Toprol-XL) 25 mg 24 hr tablet Indications:Paroxysmal atrial fibrillation (CMS/HCC)Take 1 tablet (25 mg) by mouth in the morning. Do not crush or chew. 30 tablet 1108508/6Active Active Problems ProblemNoted DateDiagnosed DatePreoperative /11/2025Paroxysmal atrial mieppomdopvg98/11/2025Former yjgmes7811/28/2024Overweight (BMI 25.0-29.9) 11/28/2024id ujogle2811/23/2024dhesive capsulitis of rdffjguv56/06/2025 Ellison's xxcydodvy39/06/2025olon polyp11/23/2024History of colon polyps 11/23/2024History of ogkywlpjfdhjyp90/06/2025Irregular Z line of esophagus 11/23/20249532Ekbtiwifuqlpwa79/06/2025Schatzki's ring11/23/2024artholin cyst 06/08/2024Lumbar disc othbzvfzos49/30/2018 Overview (11/23/2024): Added automatically from request for surgery [id number] Bursitis of tkysxmvs43/13/2017Full thickness rotator cuff tear03/12/2014cute gastric ulcer03/10/2014trial fib/flutter, transient Family History Medical HistoryRelationNameCommentsCoronary artery diseaseFatherCancerMother RelationNameStatusCommentsFatherAliveMotherDeceased Social History Tobacco UseTypesPacks/DayYears UsedDateSmoking Tobacco: FormerCigarettes Smokeless Tobacco: Never Tobacco Cessation:Counseling Given: Not Answered Alcohol UseStandard Drinks/WeekCommentsYes0 (1 standard drink = 0.6 oz pure alcohol)occasionalCommentsUnknownSex and Gender InformationValueDate RecordedSex Assigned at FwhkgGisylu35/01/2025 2:53 PM EDTLegal SexFemale 10/16/2021 11:23 PM EDTGender McygynegKrfkls02/01/2025 2:53 PM EDTSexual OrientationHeterosexual or Oulneaej67/01/2025 2:53 PM EDT Last Filed Vital Signs Vital SignReadingTime TakenCommentsBlood Npebdwhp724/8211/24/2024 9:50 AM EDT Socqp680111/24/2024 9:50 AM EDTTemperature--Respiratory Rate--Oxygen Dnjwhxjsdk12% 11/24/2024 9:50 AM EDTInhaled Oxygen Concentration--Epmdvp09.9 kg (163 lb) 11/24/2024 9:50 AM ZFVZyowby688 cm (5' 3 )11/24/2024 9:50 AM EDTBody Mass Index 28.8711/24/2024 9:50 AM EDT Plan of Treatment DateTypeDepartmentCare Team (Latest Contact Info)Bumezqnbpkb59/08/2025 3:40 PM ESTOffice Visit [place] [address] [place] [address] Adry Live MD [address] [place] [address] Health MaintenanceDue DateLast DoneCommentsCT Kqtotmbjuhfb74/02/1970FIT-DNA 1969FIT1969FOBT1969 5972Kiwmijfzvsenc93/02/1970Depression Screening 1981Hepatitis B Vaccines (1 of 3 - 19+ 3-dose series) Pneumococcal Vaccine: Pediatrics (0 to 5 Years) and At-Risk Patients (6 to 64 Years) (1 of 2 - PCV)1988HPV/Hjwyji5510/20/1999Zoster Vaccines (1 of 2) 10/20/20199611Qxslwiyib52/15/992648/3COVID-19 Vaccine (2 - 2024- season) /Influenza Vaccine (#1)/Cervical Cancer Ijbelsxlq98/04/2028Pap Smear05/24/123515/7489Igxohswigkg14/23/, 2Colorectal Cancer Avbtzyvho91/23/2034dult Alccgot76/04//07/2023 HIB VaccinesAged OutNo longer eligible based on patient's age to complete this topicHPV VaccinesAged OutNo longer eligible based on patient's age to complete this topicIPV VaccinesAged OutNo longer eligible based on patient's age to complete this topicMeningococcal B VaccineAged OutNo longer eligible based on patient's age to complete this topicMeningococcal VaccineAged OutNo longer eligible based on patient's age to complete this topicRotavirus VaccinesAged Out No longer eligible based on patient's age to complete this topic Insurance Care Teams Team MemberRelationshipSpecialtyStart DateEnd Date Gerald Tavares DO [address] [place] [address] PCP - GeneralFamily Medicine11/22/24
--- NOTE | 2025-03-07 13:17 | XR_ITS ---
[place] [id number] Patient Name: COLIN MACIAS MRN: [id number] date: 1970 Sex: F Assigned Patient Location: [facility] Current Patient Location: [facility] Accession/Order Number: [id number] Exam Date: 03/07/2025 13:30 Report Date: 03/07/2025 19:48 At the request of: ORACIO SINGH DO Procedure: XR lumbar spine 2-3V History: Chronic thoracic spine pain for 3 months 3 views thoracic spine adequate kyphosis. No compression deformity. Mild spondylosis. Mild scoliosis. 2 views lumbar spine. Extensive L5-S1 spondylosis. Lower lumbar hypertrophic facet changes. Adequate alignment. No acute fracture. XR/XR thoracic spine 3V IMPRESSION: Thoracic spondylosis. Extensive lower lumbar degeneration. No compression fracture of thoracic or lumbar spine. Impression dictated by: Jasson Barjaas M.D. 03/07/2025 7:48 PM Dictation Location: [employer] Electronically authenticated by: [id number] Y Date: 03/07/2025 19:48
--- NOTE | 2025-03-07 13:17 | XR_ITS ---
[place] [id number] Patient Name: COLIN MACIAS MRN: [id number] date: 1970 Sex: F Assigned Patient Location: [facility] Current Patient Location: [facility] Accession/Order Number: [id number] Exam Date: 03/07/2025 13:30 Report Date: 03/07/2025 19:48 At the request of: ORACIO SINGH DO Procedure: XR lumbar spine 2-3V History: Chronic thoracic spine pain for 3 months 3 views thoracic spine adequate kyphosis. No compression deformity. Mild spondylosis. Mild scoliosis. 2 views lumbar spine. Extensive L5-S1 spondylosis. Lower lumbar hypertrophic facet changes. Adequate alignment. No acute fracture. XR/XR lumbar spine 2-3V IMPRESSION: Thoracic spondylosis. Extensive lower lumbar degeneration. No compression fracture of thoracic or lumbar spine. Impression dictated by: Jasson Barajas M.D. 03/07/2025 7:48 PM Dictation Location: [employer] Electronically authenticated by: [id number] Y Date: 03/07/2025 19:48
== END 2025-03-07 13:05 | disposition home or self-care (01) ==
LOC: RAD 13:05
PROVIDERS: PCP Family Medicine; Visit Provider Family Medicine
DX: M54.50 Low back pain, unspecified (principal); Z78.0 Asymptomatic menopausal state; Z20.5 Contact with and (suspected) exposure to viral hepatitis; M47.814 Spondylosis without myelopathy or radiculopathy, thoracic region; M51.369 Other intervertebral disc degeneration, lumbar region without mention of lumbar back pain or lower extremity pain; M85.88 Other specified disorders of bone density and structure, other site
CPT/HCPCS: 36415; 72072; 72100; 77080; 86803